=== PATIENT | female | born 1945 | race Caucasian/White ===

== ENCOUNTER 2017-07-03 20:07 | Inpatient (IN) | payer OTHER ==
[~2017-07-03] VITALS: Ht 162.6 cm; Wt 140.0 kg
[~2017-07-03 20:07] MED LIST: ACLI1AER3 INH; ALBUAER2 INH; ASPI81TA28 PO; DOCU100C31 PO; FEBU40TA PO; FURO80TA63 PO; LEVO112T2 PO; MAGN400T6 PO; METO2.5T PO; METO25TA56 PO; MOME200A INH; PANT40TA PO; POTA20TA16 PO; PREG1CAP70 PO; SERT-234 PO; SPIR25TA PO; VITAMIN D2 PO; WARF3TAB6 PO; WARF6TAB5 PO
[2017-07-03 21:05] LABS: MEAN CORPUSCULAR HGB CONC 32.7 g/dl (32-36)
[2017-07-03 21:13] LABS: HEMATOCRIT 49.2 % (37-47); MEAN CELL VOLUME 78.5 fL (80-100); MEAN CORPUSCULAR HEMOGLOBIN 25.7 pg (25-34); RED BLOOD COUNT 6.27 M/uL (4.2-5.4); WHITE BLOOD COUNT 10.52 K/uL (4.8-10.8)
[2017-07-03 21:16] LABS: INR 2.5 (0.9-1.1); PARTIAL THROMBOPLASTIN RATIO 1.6; PROTHROMBIN TIME (PATIENT) 28.1 SECONDS (9.0-12.0)
[2017-07-03 21:22] LABS: ALT/SGPT 29 U/L (12-78); AST/SGOT 19 U/L (15-37); BLOOD UREA NITROGEN 66 mg/dl (7-18); BUN/CREATININE RATIO 35.9 (10-20); CARBON DIOXIDE 33 mmol/L (21-32); CHLORIDE 100 mmol/L (98-107); CREATININE 1.83 mg/dl (0.60-1.20); GLUCOSE 131 mg/dl (70-99); MAGNESIUM 2.1 mg/dl (1.8-2.4); POTASSIUM 3.8 mmol/L (3.5-5.1); SODIUM 140 mmol/L (136-145)
[2017-07-03 21:27] LABS: ALB/GLOB RATIO 0.7 (0.9-2); ALKALINE PHOSPHATASE 109 U/L (45-117)
--- NOTE | 2017-07-03 21:39 | DIAGNOSTIC IMAGING REPORT ---
CHEST ONE VIEW PORTABLE HISTORY: 72 years-old Female sob, hx chf acute shortness of breath with history of congestive heart failure COMPARISON: None available TECHNIQUE: AP view of the chest FINDINGS: Cardiac silhouette is moderately enlarged. Prior median sternotomy. There is atherosclerosis of the aorta. Surgical clips project over the left heart border suggesting prior CABG. There is no pneumothorax. There is mild pulmonary vascular congestion without overt pulmonary edema. Subsegmental bibasilar opacities are noted, left greater than right. Bones appear grossly intact. IMPRESSION: 1. Cardiomegaly and pulmonary vascular congestion without overt pulmonary edema. 2. Subsegmental left greater than right bibasilar opacities suggest atelectasis. The above report was generated using voice recognition software. It may contain grammatical, syntax or spelling errors. Electronically signed by: Brandin Dietz M.D. 07/03/2017 9:38 PM Dictated Date/Time: 07/03/2017 9:36 PM
--- NOTE | 2017-07-03 21:59 | EMERGENCY ROOM VISIT NOTE ---
ED Visit Note First contact with patient: 20:24 I have seen and examined this patient with Tammy Nolan and generally agree with the treatment plan as discussed. Problem List Medical Problems: (1) CHF (congestive heart failure) Status: Resolved (2) Deep vein blood clot of right lower extremity Status: Resolved (3) Diabetes Status: Chronic Current/Historical Medications Scheduled Aclidinium [place] (Tudorza Pressair), 1 PUFF INH BID Albuterol (Ventolin), 1 PUFFS INH UD Aspirin (Aspirin Ec), 81 MG PO DAILY Docusate Sodium (Docusate Sodium), 1 CAP PO DAILY Febuxostat (Uloric), 1 TAB PO DAILY Furosemide (Lasix), 80 MG PO BID Levothyroxine Sodium (Synthroid), 112 MCG PO DAILY Magnesium Oxide (Mag-Ox), 400 MG PO DAILY Metolazone (Zaroxolyn), 2.5 MG PO WK Metoprolol Tartrate (Lopressor) (Lopressor), 25 MG PO QAM Metoprolol Tartrate (Lopressor) (Lopressor), 12.5 MG PO QPM Mometasone Furoate-Formoterol (Dulera 200/5 Mcg), 2 PUFFS INH BID Pantoprazole (Protonix), 40 MG PO DAILY Potassium Ext Rel (Klor-Con), 20 MEQ PO TID Pregabalin (Lyrica), 150 MG PO TID Sertraline (Zoloft), 150 MG PO DAILY Spironolactone (Aldactone), 25 MG PO DAILY Warfarin Sod (Jantoven), 6 MG PO QAM Warfarin Sod (Jantoven), 3 MG PO QPM [Vitamin D2], 1.25 MG PO MONTHLY Allergies Coded Allergies: Penicillins (Verified Allergy, Unknown, UNLNOWN, 01/20/16) Vital Signs Date Time Temp Pulse Resp B/P (MAP) Pulse Ox O2 Delivery O2 Flow Rate FiO2 07/03/17 21:01 114/71 07/03/17 20:52 78 20 96 Nasal Cannula 3.0 07/03/17 20:47 79 07/03/17 20:30 124/75 07/03/17 20:14 36.4 79 20 110/71 89 Room Air Laboratory Results 07/03/17 20:50 Red Blood Count 6.27, Mean Corpuscular Volume 78.5, Mean Corpuscular Hemoglobin 25.7, Mean Corpuscular Hemoglobin Concent 32.7 07/03/17 20:50 Test 07/03/17 20:50 White Blood Count 10.52 K/uL (4.8-10.8) Red Blood Count 6.27 M/uL (4.2-5.4) Hemoglobin 16.1 g/dL (12.0-16.0) Hematocrit 49.2 % (37-47) Mean Corpuscular Volume 78.5 fL (80-100) Mean Corpuscular Hemoglobin 25.7 pg (25-34) Mean Corpuscular Hemoglobin Concent 32.7 g/dl (32-36) RDW Standard Deviation 54.9 fL (36.4-46.3) RDW Coefficient of Variation 19.3 % (11.5-14.5) Prothrombin Time 28.1 SECONDS (9.0-12.0) Prothromb Time International Ratio 2.5 (0.9-1.1) Activated Partial Thromboplast Time 41.4 SECONDS (21.0-31.0) Partial Thromboplastin Ratio 1.6 Anion Gap 7.0 mmol/L (3-11) Estimated GFR () 31.2 Estimated GFR (Non- 26.9 BUN/Creatinine Ratio 35.9 (10-20) Calcium Level 10.0 mg/dl (8.5-10.1) Magnesium Level 2.1 mg/dl (1.8-2.4) Total Bilirubin 0.3 mg/dl (0.2-1) Aspartate Amino Transf (AST/SGOT) 19 U/L (15-37) Alanine Aminotransferase (ALT/SGPT) 29 U/L (12-78) Alkaline Phosphatase 109 U/L (45-117) Troponin I < 0.015 ng/ml (0-0.045) Pro-B-Type Natriuretic Peptide 667 pg/ml (0-900) Total Protein 7.7 gm/dl (6.4-8.2) Albumin 3.2 gm/dl (3.4-5.0) Globulin 4.5 gm/dl (2.5-4.0) Albumin/Globulin Ratio 0.7 (0.9-2) Departure Information Referrals Esequiel Bran D.O. (PCP) Patient Instructions My [facility]
[2017-07-03] MEDS ORDERED: ANAS1TAB19 PO (22:09)
[2017-07-03] MEDS ORDERED: ACLI1AER3 INH (22:09)
[2017-07-03] MEDS ORDERED: CALCTAB7 PO (22:09)
[2017-07-03] MEDS ORDERED: ROSU10TA24 PO (22:09)
[2017-07-03] MEDS ORDERED: WARF4TAB8 PO (22:09)
[2017-07-03] MEDS ORDERED: MOME100A INH (22:13)
[2017-07-03 22:14] LABS: BASO % 0.3 %; BASO ABS # 0.03 K/uL (0-0.2); COMPLETE YES; IG% 0.5 %; LYMPH ABS # 1.79 K/uL (1.2-3.4); NEUT % 71.2 %; PLATELET COUNT 140 K/uL (130-400)
--- NOTE | 2017-07-03 22:23 | DIAGNOSTIC IMAGING REPORT ---
BILATERAL LOWER EXTREMITY VENOUS DOPPLER HISTORY: Acute bilateral leg swelling b/l leg swelling hx clots COMPARISON STUDY: None. FINDINGS: There is normal compressibility, flow, and augmentation within the bilateral lower extremity deep venous systems. IMPRESSION: No DVT within the right or left lower extremity. Electronically signed by: Brandin Dietz M.D. 07/03/2017 10:22 PM Dictated Date/Time: 07/03/2017 10:22 PM
[2017-07-03] MEDS ORDERED: FUROSEMIDE 40 MG/4 ML VIAL IV STA (22:35)
[2017-07-03] MEDS ORDERED: ALBUT/IPRATROP 3MG/0.5MG NEB 3 ML VIAL INH ONE (22:45)
[2017-07-03 22:50] VITALS: PULSE 79; O2SAT 88
[2017-07-03] MEDS ORDERED: CEFTRIAXONE SOD INJ 1 GM ADDVIAL IV STA (23:03)
[2017-07-03] MEDS ORDERED: VANCOMYCIN INJ 2,000 MG in SODIUM CHLORIDE 0.9% 500ML 500 ML IV STA (23:15)
[2017-07-04] VITALS (10 sets, daily range): BP systolic 103–144; BP diastolic 56–79; PULSE 77–90; TEMP 36.5–36.8; O2SAT 86–98; Ht 162.6 cm; Wt 140.0 kg
[2017-07-04 00:12] LABS: THYROID STIMULATING HORMONE 0.958 uIu/ml (0.300-4.500)
[2017-07-04] MEDS ORDERED: DOXYCYCLINE IV 100 MG in DEXTROSE 5% 100ML 100 ML IV STA (00:35)
[2017-07-04] MEDS ORDERED: FUROSEMIDE INJ 60 MG in SYRINGE 0 ML IV STA (00:36)
[2017-07-04] MEDS ORDERED: INSULIN ASPART 100 UNITS/ML 3 ML PEN SC ONE (00:37)
[2017-07-04 00:38] LABS: VEN BLD GAS O2 SATURATION 78.5 %; VEN BLOOD GAS BASE EXCESS 6.4 mEq/L; VENOUS BLOOD GAS PCO2 70 mmHg (38.0-50.0); VENOUS BLOOD GAS PO2 48 mmHg
[2017-07-04] MEDS ORDERED: FUROSEMIDE INJ 80 MG in SYRINGE 0 ML IV STA ×2 (00:39→05:04)
[2017-07-04] MEDS ORDERED: INSULIN GLARGINE SOLOSTAR 100 UNITS/ML 3 ML PEN SC STA (00:39)
[2017-07-04] MEDS ORDERED: METHYLPREDNISOLONE IV 40 MG in SYRINGE 0 ML IV STA (00:40)
[2017-07-04] MEDS ORDERED: GLUCOSE 10 TABS/TUBE PO PRN (00:45)
[2017-07-04] MEDS ORDERED: GLUCAGON FOR INJ 1 MG VIAL SQ PRN (00:45)
[2017-07-04] MEDS ORDERED: LEVALBUTEROL/IPRATROPIUM NEB INH PRN (00:45)
[2017-07-04] MEDS ORDERED: DEXTROSE 50% 50 ML SYR IV PRN (00:45)
[2017-07-04] MEDS ORDERED: ACETAMINOPHEN 325 MG TAB PO PRN (00:45)
[2017-07-04] MEDS ORDERED: NITROGLYCERIN 0.4 MG SL PER TAB CHARGE SL PRN (00:45)
[2017-07-04] MEDS ORDERED: GLUCOSE 40% GEL 15 GM TUBE PO PRN (00:45)
--- NOTE | 2017-07-04 00:56 | EMERGENCY ROOM VISIT NOTE ---
History First contact with patient: 20:24 Chief Complaint: SWELLING TO EXTREMITY Stated Complaint: FLUID AND PAIN IN LEGS History of Present Illness The patient is a 72 year old female who presents to the Emergency Room with complaints of leg swelling and shortness of breath. The patient states that she has had increased swelling in both her legs, left greater than right worsening over the past week. The patient does have a history of swelling in her legs and takes Lasix 80 mg twice daily at home. She has had to be hospitalized a few times to decrease the swelling. The patient has a history of congestive heart failure. She states that the swelling in the left leg seems to be spreading up into the thigh and is painful. She has felt unsteady on her feet for the past few days. She does state that she has had some increased shortness of breath over the past few days. She typically wears 2 L of oxygen via nasal cannula at all times, but has recently increased her oxygen to 3 L. She denies any chest pain, fevers or cough. The patient also reports a history of COPD, CAD, CABG and breast cancer. She has a history of blood clots and is on Coumadin. Review of Systems A complete 10 point review of systems was reviewed with the patient with pertinent positives and negatives as per history of present illness. All else were negative. Past Medical/Surgical History Medical Problems: (1) CHF (congestive heart failure) (2) Deep vein blood clot of right lower extremity (3) Diabetes (4) Respiratory failure, acute Family History Patient reports no known family medical history. Social History Smoking Status: Current Every Day Smoker Marital Status: Housing Status: lives with family Occupation Status: retired Current/Historical Medications Scheduled Aclidinium [place] (Tudorza Pressair), INH UD Anastrozole (Arimidex), 1 MG PO DAILY Calcium Carbonate-Vitamin D W/ (Caltrate 600 Plus), 1 TAB PO DAILY Docusate Sodium (Docusate Sodium), 1 CAP PO DAILY Febuxostat (Uloric), 1 TAB PO DAILY Furosemide (Lasix), 80 MG PO BID Levothyroxine Sodium (Synthroid), 112 MCG PO DAILY Magnesium Oxide (Mag-Ox), 400 MG PO DAILY Metoprolol Tartrate (Lopressor) (Lopressor), 37.5 MG PO QAM Mometasone Furoate-Formoterol (Dulera 100/5 Mcg), 1 AER INH BID Pantoprazole (Protonix), 40 MG PO DAILY Potassium Ext Rel (Klor-Con), 20 MEQ PO TID Pregabalin (Lyrica), 150 MG PO TID Rosuvastatin Calcium (Rosuvastatin Calcium), 10 MG PO DAILY Sertraline (Zoloft), 150 MG PO DAILY Spironolactone (Aldactone), 25 MG PO DAILY Warfarin Sod (Jantoven), 2 TABS PO DAILY Physical Exam Vital Signs Date Time Temp Pulse Resp B/P (MAP) Pulse Ox O2 Delivery O2 Flow Rate FiO2 07/04/17 00:58 124 20 87/53 93 Nasal Cannula 3.0 07/03/17 23:01 113/63 07/03/17 22:53 111/58 07/03/17 22:52 102/61 07/03/17 22:51 80 07/03/17 22:50 79 20 88 Room Air 07/03/17 21:36 78 18 94 07/03/17 21:31 80/59 07/03/17 21:21 80 15 95 07/03/17 21:06 80 16 94 07/03/17 21:01 114/71 07/03/17 20:52 78 20 96 Nasal Cannula 3.0 07/03/17 20:47 79 07/03/17 20:30 124/75 07/03/17 20:14 36.4 79 20 110/71 89 Room Air Physical Exam VITALS: Vitals are noted on the nurse's note and reviewed by myself. Vital signs stable. GENERAL: This is a 72-year-old female, obese, chronically ill-appearing, in no acute distress. EARS: External auditory canals clear, tympanic membranes pearly ingram without erythema or effusion bilaterally. EYES: Pupils equal round and reactive to light and accommodation. NECK: Supple without nuchal rigidity. HEART: Regular rate and rhythm without murmurs gallops or rubs. LUNGS: There are diffuse wheezes and crackles throughout all lung peng. EXTREMITIES: 2+ pitting edema bilaterally. There is erythema extending from the left foot of the left leg to below the knee. NEURO: Patient was alert and oriented to person place and time. Medical Decision & Procedures ER Provider Diagnostic Interpretation: CHEST ONE VIEW PORTABLE FINDINGS: Cardiac silhouette is moderately enlarged. Prior median sternotomy. There is atherosclerosis of the aorta. Surgical clips project over the left heart border suggesting prior CABG. There is no pneumothorax. There is mild pulmonary vascular congestion without overt pulmonary edema. Subsegmental bibasilar opacities are noted, left greater than right. Bones appear grossly intact. IMPRESSION: 1. Cardiomegaly and pulmonary vascular congestion without overt pulmonary edema. 2. Subsegmental left greater than right bibasilar opacities suggest atelectasis. BILATERAL LOWER EXTREMITY VENOUS DOPPLER HISTORY: Acute bilateral leg swelling b/l leg swelling hx clots COMPARISON STUDY: None. FINDINGS: There is normal compressibility, flow, and augmentation within the bilateral lower extremity deep venous systems. IMPRESSION: No DVT within the right or left lower extremity. Laboratory Results 07/03/17 20:50 Red Blood Count 6.27, Mean Corpuscular Volume 78.5, Mean Corpuscular Hemoglobin 25.7, Mean Corpuscular Hemoglobin Concent 32.7, Neutrophils (%) (Auto) 71.2, Lymphocytes (%) (Auto) 17.0, Monocytes (%) (Auto) 10.0, Eosinophils (%) (Auto) 1.0, Basophils (%) (Auto) 0.3, Neutrophils # (Auto) 7.50, Lymphocytes # (Auto) 1.79, Monocytes # (Auto) 1.05, Eosinophils # (Auto) 0.10, Basophils # (Auto) 0.03 07/03/17 20:50 Test 07/03/17 20:50 07/04/17 00:02 07/04/17 00:37 07/04/17 01:07 White Blood Count 10.52 K/uL (4.8-10.8) Red Blood Count 6.27 M/uL (4.2-5.4) Hemoglobin 16.1 g/dL (12.0-16.0) Hematocrit 49.2 % (37-47) Mean Corpuscular Volume 78.5 fL (80-100) Mean Corpuscular Hemoglobin 25.7 pg (25-34) Mean Corpuscular Hemoglobin Concent 32.7 g/dl (32-36) Platelet Count 140 K/uL (130-400) Neutrophils (%) (Auto) 71.2 % Lymphocytes (%) (Auto) 17.0 % Monocytes (%) (Auto) 10.0 % Eosinophils (%) (Auto) 1.0 % Basophils (%) (Auto) 0.3 % Neutrophils # (Auto) 7.50 K/uL (1.4-6.5) Lymphocytes # (Auto) 1.79 K/uL (1.2-3.4) Monocytes # (Auto) 1.05 K/uL (0.11-0.59) Eosinophils # (Auto) 0.10 K/uL (0-0.5) Basophils # (Auto) 0.03 K/uL (0-0.2) RDW Standard Deviation 54.9 fL (36.4-46.3) RDW Coefficient of Variation 19.3 % (11.5-14.5) Immature Granulocyte % (Auto) 0.5 % Immature Granulocyte # (Auto) 0.05 K/uL (0.00-0.02) Prothrombin Time 28.1 SECONDS (9.0-12.0) Prothromb Time International Ratio 2.5 (0.9-1.1) Activated Partial Thromboplast Time 41.4 SECONDS (21.0-31.0) Partial Thromboplastin Ratio 1.6 Anion Gap 7.0 mmol/L (3-11) Estimated GFR () 31.2 Estimated GFR (Non- 26.9 BUN/Creatinine Ratio 35.9 (10-20) Calcium Level 10.0 mg/dl (8.5-10.1) Magnesium Level 2.1 mg/dl (1.8-2.4) Total Bilirubin 0.3 mg/dl (0.2-1) Aspartate Amino Transf (AST/SGOT) 19 U/L (15-37) Alanine Aminotransferase (ALT/SGPT) 29 U/L (12-78) Alkaline Phosphatase 109 U/L (45-117) Troponin I < 0.015 ng/ml (0-0.045) Pro-B-Type Natriuretic Peptide 667 pg/ml (0-900) Total Protein 7.7 gm/dl (6.4-8.2) Albumin 3.2 gm/dl (3.4-5.0) Globulin 4.5 gm/dl (2.5-4.0) Albumin/Globulin Ratio 0.7 (0.9-2) Thyroid Stimulating Hormone (TSH) 0.958 uIu/ml (0.300-4.500) Venous Blood pH 7.32 (7.36-7.41) Venous Blood Partial Pressure CO2 70 mmHg (38.0-50.0) Venous Blood Partial Pressure O2 48 mmHg Venous Blood HCO3 35 mmol/L Venous Blood Oxygen Saturation 78.5 % Venous Blood Base Excess 6.4 mEq/L Lactic Acid Level 1.1 mmol/L (0.4-2.0) Bedside Glucose 150 mg/dl (70-90) Medications Administered Medications (Trade) Dose Ordered Sig/Isidoro Route Start Time Stop Time Status Last Admin Dose Admin Albuterol/ Ipratropium (Duoneb) 12 ml ONE ONCE INH 07/03/17 22:45 07/03/17 22:46 DC 07/03/17 22:50 12 ML Ceftriaxone Sodium (Rocephin Inj) 1 gm NOW STAT IV 07/03/17 23:03 07/03/17 23:05 DC 07/03/17 23:50 1 GM Doxycycline Hyclate 100 mg/ Dextrose 110 ml @ 50 mls/hr NOW STAT IV 07/04/17 00:35 07/04/17 02:46 07/04/17 01:00 50 MLS/HR Methylprednisolone Sodium Succinate 40 mg/Syringe 0.64 ml @ 1.5 mls/min NOW STAT IV 07/04/17 00:40 07/04/17 00:41 DC 07/04/17 01:00 1.5 MLS/MIN Insulin Glargine (Lantus Solostar Pen) 5 units NOW STAT SC 07/04/17 00:39 07/04/17 00:40 DC 07/04/17 01:10 5 UNITS ECG Rate (beats per minute): 79 Rhythm: atrial flutter (3:1 AV conduction ) Comparison ECG Date: no prior available Medical Decision Differential diagnosis includes CHF, COPD exacerbation, cellulitis, coronary artery disease, pneumonia, among others. The patient is a 72-year-old female who presents today complaining of leg swelling and shortness of breath. There is no leukocytosis. Troponin was not elevated. BNP within normal limits. Chest x-ray did show some pulmonary vascular congestion without overt pulmonary edema. Creatinine is elevated, however this is the patient's baseline. EKG does show atrial flutter at a normal rate. Patient has a history of this and with stable vital signs I do not suspect it is causing her symptoms. Ultrasound of the lower extremities showed no evidence of DVT. A DuoNeb was ordered. I suspect her shortness of breath is likely multifactorial. There is concern for cellulitis given the new onset of increased swelling in the left leg. Patient is afebrile. She does not appear to be septic. She was given Rocephin and vancomycin. She will be admitted to the [facility] service for further evaluation and care. The patient was independently evaluated by Dr. Shultz, ED attending physician , who agreed with my assessment and treatment plan. Medication Reconcilliation Current Medication List: was personally reviewed by me Blood Pressure Screening Patient's blood pressure: Normal blood pressure Impression Primary Impression: Left leg cellulitis Additional Impression: Shortness of breath Departure Information Referrals Esequiel Bran D.O. (PCP) Patient Instructions My [facility] Problem Qualifiers
[2017-07-04] MEDS ORDERED: DIGOXIN IV 250 MCG in SYRINGE 9 ML IV STA (01:02)
[2017-07-04] MEDS ORDERED: TRAMADOL HCL 50 MG TAB PO PRN (01:15)
[2017-07-04] MEDS ORDERED: ONDANSETRON INJ 2 MG/ML 2 ML VIAL IV PRN (01:15)
[2017-07-04] MEDS ORDERED: HYDROmorphone INJ 0.5 MG/0.5 ML SYR IV PRN (01:15)
[2017-07-04] MEDS ORDERED: LEVALBUTEROL 1.25MG/0.5ML NEB INH PRN (01:30)
[2017-07-04] MEDS ORDERED: IPRATROPIUM BROMIDE NEB SOLN 0.02% 2.5 ML VIAL INH PRN (01:30)
--- NOTE | 2017-07-04 02:31 | HISTORY & PHYSICAL EXAMINATION ---
DATE OF ADMISSION: 07/03/2017 REQUESTING PHYSICIAN: Dr. Esequiel Bran. CHIEF COMPLAINT: Shortness of breath, leg swelling. HISTORY OF PRESENT ILLNESS: History obtained from patient, daughter and records. Medical history significant for chronic respiratory failure secondary to COPD on home O2, CAD status post CABG, chronic CHF, leaky valve as per daughter, PVD, history of atrial fibrillation/recurrent PE/DVT on anticoagulation. breast cancer left status post lumpectomy sp radiation, on hormonal treatment, ongoing tobacco abuse, JONATHON, DM2, diet controlled, chronic renal insufficiency stage III as per daughter. In the last week patient noted cough symptoms initially clear later productive of yellow sputum. No chest pain. Some coughing with meals. Patient and daughter also noted increased bilateral leg swelling and redness, progressive despite compliance with diuretic Rx. Denies dietary indiscretion. No fever no chills. Weight gain of 10 pounds in a week as per patient. Increasing shortness of breath. Patient also noted right upper extremity weakness in the last week, compliant with medications. No unusual headache, no shoulder pain, no neck pain. No recollection of trauma. Patient brought to the ER. MEDICAL HISTORY: As above. Her blanking press operator is Dr. Fernandez, Her low altitude air defense gunner is Dr. Dawson. SURGERIES: She has had back surgery, some ankle surgery and bypass. HOME MEDICATIONS: Include Tudorza, Arimidex, Caltrate, docusate sodium, Uloric, Lasix, Synthroid, Dulera, mag oxide, Lopressor, Protonix, Klor-Con, Lyrica, rosuvastatin, Zoloft, Aldactone, Jantoven. ASA ALLERGIES: MELATONIN, PENICILLIN. FAMILY HISTORY: Heart disease, diabetes. PERSONAL SOCIAL HISTORY: A pack daily. No chronic intake of alcoholic beverages. 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 Lives with daughter. REVIEW OF SYSTEMS: As per HPI. All 10 systems reviewed. All other ROS negative. PHYSICAL EXAMINATION: VITAL SIGNS: Blood pressure noted to be 110/71, late 87/50, pulse rate 78 later 110, RR 20, temperature 36.4, sats 89 on room air. GENERAL: Noted to be obese, comfortable, no overt respiratory distress. Currently receiving a breathing treatment at the emergency room. SKIN: Normal color, warm. HEENT: sparse hair. [place] palpebral conjuctivae. No ptosis, Dry buccal mucosa. NECK: Short neck. No tenderness. CHEST: Healed incisional sternal scar. No tenderness. Expiratory wheezes. CV: Tachycardic. Palpable LE pulses. ABDOMEN: Some distention, nontender. EXTREMITIES: Bilateral lower extremity edema, erythema, no tenderness. No gross deformity. NEUROLOGIC: Coherent. No gross focality. LABORATORY DATA: Hemoglobin was noted to be 16.1, hematocrit 49.2, white cell count 10.5, platelets 140. Sodium 140, potassium 3.8, chloride 100, CO2 30, BUN 16, creatinine 1.8, glucose 131. Troponin was noted to be 0.15. INR noted to be 2.5. EKG as per my interpretation, rate 80, atrial flutter. Lower extremity venous Dopplers, no DVT. Chest x-ray showed cardiomegaly, pulmonary vascular congestion, atelectasis. ASSESSMENT: 1. Acute on chronic hypoxemic failure multifactorial : decompensated heart failure chronic obstructive pulmonary disease exacerbation/complicated bronchitis. No sepsis. 2. Hypertension, BP on the lower side 3. hx Atrial flutter/recurrent PE/DVT on Coumadin. Rate slightly elevated , INR therapeutic. 4. RUE weakness of one week duration rule out CVA CAD sp CABG 5. Coughing with meals rule out aspiration 6. hx PVD. 7. LE Cellulitis. No sepsis. 8. renal failure, hx Stage 3 CKD as per daughter Serum creatinine may be at baseline. 9. Breast cancer, left, status post surgery, radiation, ongoing hormone therapy. 10. Ongoing tobacco abuse. 11. hx JONATHON PLAN: PCU supplemental O2 baseline ABG. Diuretic Rx BP once stable, Follow renal function with diuretic therapy. Strict IOs, daily weights, CHF education Continue home BB; digoxin one dose now control heart rate given low BP TTE, Cardiology consult RE decompensated heart failure Obtain records from patient's blanking press operator, Dr. Fernandez. Coordinate diuretic regimen w/ px's [facility] low altitude air defense gunner, Dr. Dawson. [facility] RTC, prn Doxycycline, steroid course for complicated bronchitis (Doxycycline to cover lower extremity cellulitis as well.) Nicotine patch CT head RE right upper extremity weakness (MRI precluded by heart stent as per daughter.) May need stroke workup, Neurology opinion pending CT head results. Swallow eval PT, OT eval. Basal insulin, ISS BG goal 140-180 Check hemoglobin A1c. DVT prophylaxis, Coumadin INR 2-3. Full code. Patient's daughter requesting updates from providers. Miss Valentine Orellana at [phone]. [facility]
[2017-07-04] MEDS: IPRATROPIUM BROMIDE NEB SOLN 0.02% 2.5 ML VIAL INH SCH ×4 (02:59→19:04)
[2017-07-04] MEDS: LEVALBUTEROL 1.25MG/0.5ML NEB INH SCH ×4 (02:59→19:04)
[2017-07-04] MEDS ORDERED: LEVALBUTEROL/IPRATROPIUM NEB INH SCH (03:00)
[2017-07-04 04:28] LABS: INFLUENZA A PCR Neg for Influ A (NEG); INFLUENZA B PCR Neg for Influ B (NEG)
[2017-07-04] MEDS ORDERED: POTASSIUM CHLORIDE 10 MEQ TABCR PO STA (04:41)
[2017-07-04] MEDS ORDERED: INFLUENZA VACCINE HIGH DOSE 65+ 0.5 ML SYR IM. ONE (05:30)
[2017-07-04] MEDS ORDERED: INFLUENZA ADMINISTRATION CHARGE ONE (05:30)
[2017-07-04] MEDS: LEVOTHYROXINE 112 MCG TAB PO SCH (05:33)
[2017-07-04 06:02] LABS: MEAN CORPUSCULAR HGB CONC 31.5 g/dl (32-36)
[2017-07-04 06:12] LABS: HEMATOCRIT 50.5 % (37-47); MEAN CORPUSCULAR HEMOGLOBIN 24.9 pg (25-34); RED BLOOD COUNT 6.39 M/uL (4.2-5.4); WHITE BLOOD COUNT 10.67 K/uL (4.8-10.8)
[2017-07-04 06:17] LABS: INR 2.6 (0.9-1.1)
[2017-07-04 06:40] LABS: BLOOD UREA NITROGEN 67 mg/dl (7-18); BUN/CREATININE RATIO 33.8 (10-20); CARBON DIOXIDE 32 mmol/L (21-32); CHLORIDE 100 mmol/L (98-107); CREATININE 1.98 mg/dl (0.60-1.20); GLUCOSE 175 mg/dl (70-99); POTASSIUM 4.1 mmol/L (3.5-5.1); SODIUM 141 mmol/L (136-145)
[2017-07-04 06:42] LABS: PLATELET COUNT 120 K/uL (130-400)
[2017-07-04 06:43] LABS: BASO % 0.2 %; BASO ABS # 0.02 K/uL (0-0.2); COMPLETE YES; EOS % 0.1 %; IG% 0.2 %; LYMPH % 6.8 %; LYMPH ABS # 0.73 K/uL (1.2-3.4); MONO % 1.7 %; PLT ESTIMATE DECREASED
[2017-07-04] MEDS ORDERED: PERFLUTREN LIPID MICROSPHERE (DEFINITY) IV ONE (07:04)
--- NOTE | 2017-07-04 07:14 | DIAGNOSTIC IMAGING REPORT ---
CT SCAN OF THE BRAIN WITHOUT IV CONTRAST CLINICAL HISTORY: Right upper extremity weakness. COMPARISON STUDY: No priors. TECHNIQUE: Unenhanced axial CT scan of the brain is performed from the vertex to the skull base. CT DOSE: 614.27 mGy.cm FINDINGS: Brain parenchyma: There are age-related involutional changes noting [id number] patchy subcortical and periventricular microangiopathic change. There is no hemorrhage, mass effect, or evidence of acute territorial ischemia by CT criteria. Barron-white matter is preserved. No extra-axial fluid collection is seen. Ventricles, sulci, cisterns: Prominent secondary to involutional change. Intracranial vasculature: There is atherosclerotic calcification of the cavernous carotid and vertebral arteries. Calvarium: Unremarkable. Sinuses and mastoids: The visualized paranasal sinuses are clear. The mastoid air cells are well pneumatized. Orbits: The bony orbits are grossly intact. IMPRESSION: There is no hemorrhage, mass effect, or evidence of acute territorial ischemia by CT criteria. Electronically signed by: Tayo Lancaster M.D. 07/04/2017 7:13 AM Dictated Date/Time: 07/04/2017 6:56 AM
[2017-07-04 07:43] LABS: ESTIMATED AVERAGE GLUCOSE 154 mg/dl; HA1C FLAG Normal (Normal)
[2017-07-04] MEDS: ROSUVASTATIN CALCIUM 10 MG TAB PO SCH (08:03)
[2017-07-04] MEDS: INSULIN ASPART 100 UNITS/ML 3 ML PEN SC SCH ×4 (08:05→20:29)
[2017-07-04] MEDS: ANASTROZOLE 1 MG TAB PO SCH (08:06)
[2017-07-04] MEDS: PANTOprazole SOD 40 MG TAB PO SCH (08:06)
[2017-07-04] MEDS: DOCUSATE SODIUM 100 MG CAP PO SCH (08:07)
[2017-07-04] MEDS: SERTRALINE HCL 100 MG TAB PO SCH (08:07)
[2017-07-04] MEDS: ASPIRIN 81 MG ECTAB PO SCH (08:07)
[2017-07-04] MEDS: FEBUXOSTAT 40 MG TAB PO SCH (08:08)
[2017-07-04] MEDS: METOPROLOL TARTRATE 25 MG TAB PO SCH ×2 (08:08→20:36)
[2017-07-04] MEDS: POTASSIUM CHLORIDE 20 MEQ TABCR PO SCH ×3 (08:09→20:37)
[2017-07-04] MEDS: NICOTINE 21 MG/24 HR TDSY TD SCH (08:10)
[2017-07-04] MEDS: PREGABALIN 150 MG CAP PO SCH ×3 (08:14→20:36)
[2017-07-04 08:15] LABS: URINE APPEARANCE CLEAR (CLEAR); URINE BILIRUBIN NEG (NEG); URINE COLOR YELLOW; URINE NITRITE NEG (NEG); URINE SPECIFIC GRAVITY 1.013 (1.000-1.030); UROBILINOGEN NEG (NEG); ZZUR CULT IF INDIC CLEAN CATCH NO
[2017-07-04 08:16] LABS: MANUAL MICROSCOPIC REQUIRED? NO; REVIEW REQ? NO
--- NOTE | 2017-07-04 08:55 | ECHOCARDIOGRAM REPORT ---
*NOTICE TO RECEIVING [employer] This information is strictly Confidential and protected under [place] law. [place] law prohibits you from making any further disclosure of this information unless further disclosure is expressly permitted by the written consent of the person to whom it pertains or is authorized by law. A general authorization for the release of medical or other information is not sufficient for this purpose. Hospital accepts no responsibility if the information is made available to any other person, INCLUDING THE PATIENT. Interpretation Summary * Name: CHANTEL ALEXANDRE Study Date: 07/04/2017 07:42 AM BP: 121/72 mmHg * Patient Location: .2E\S\E202\S\1 HR: 95 * : 1945 (M/d/yyy) Gender: Female Height: 64 in * Age: 72 yrs Ethnicity: [place] Weight: 306 lb * Ordering Physician: Pankaj Rice * Referring Physician: Self, Referred * Performed By: Sandra Obrien RCS * * Reason For Study: CHF * BSA: 2.3 m2 * -- Conclusions -- * Normal LV chamber size with mild concentric LVH. * Normal LV systolic function, abnormal septal wall motion consistent with post-operative state, EF 55-60%. * Grade I diastolic dysfunction. * A bicuspid aortic valve cannot be excluded. Mildly calcified. Trace aortic regurgitation. No hemodynamically significant valvular aortic stenosis. * Small, loculated anterior pericardial effusion. Stranding is present to suggest chronicity. Procedure Details * A complete two-dimensional transthoracic echocardiogram was performed (2D, M-mode, Doppler and color flow Doppler). * The study was technically difficult. * A contrast injection of Definity was performed to improve assessment of LV function. * Contrast was injected into an intravenous site in the left arm. * One vial of Definity ultrasound contrast was diluted in normal saline to a total volume of 10 ml. A total of '2' ml of solution was administered during imaging. * Lot # [id number] of Definity utilized for procedure. * Expiration date AUG 05. * The attending nurse who injected the contrast agent was AUBREY MCCAULEY, RN. Left Ventricle * The left ventricle is normal in size. * There is mild concentric left ventricular hypertrophy. * Left ventricular systolic function is normal. * Ejection Fraction = 55-60%. * Septal motion is consistent with post-operative state. Right Ventricle * The right ventricular cavity size is normal (basal dimension <4.2 cm in right ventricular apical 4-chamber view). * The right ventricular systolic function is normal as assessed by tricuspid annular plane systolic excursion (TAPSE) (normal >1.5 cm). Atria * The left atrial size is normal. * Right atrial size is normal. * No ASD detected; PFO is not assessed. Mitral Valve * There is mild mitral annular calcification. * There is no mitral valve stenosis. * There is no mitral regurgitation noted. Tricuspid Valve * The tricuspid valve is normal in structure and function. Aortic Valve * A bicuspid aortic valve cannot be excluded. * Mildly calcified. * No hemodynamically significant valvular aortic stenosis. * Trace aortic regurgitation. Pulmonic Valve * The pulmonary valve is not well seen, but the Doppler examination is normal without significant regurgitation or stenosis. Great Vessels * The aortic root is normal size. Pericardium/Pleural * Small pericardial effusion. * A loculated pericardial effusion is noted. Left Ventricular Diastolic Function * Grade I diastolic dysfunction, (abnormal relaxation pattern). MMode 2D Measurements and Calculations IVSd 1.5 cm IVSs 1.6 cm LVIDd 4.8 cm LVIDs 3.5 cm LVPWd 0.94 cm LVPWs 1.4 cm IVS/LVPW 1.6 FS 26.4 % EDV(Teich) 107.9 ml ESV(Teich) 52.2 ml EF(Teich) 51.6 % EDV(cubed) 111.0 ml ESV(cubed) 44.3 ml EF(cubed) 60.1 % % IVS thick 10.6 % % LVPW thick 53.8 % LV mass(C)d 221.7 grams LV mass(C)dI 94.6 grams/m\S\2 LV mass(C)s 204.8 grams LV mass(C)sI 87.4 grams/m\S\2 SV(Teich) 55.7 ml SI(Teich) 23.7 ml/m\S\2 SV(cubed) 66.8 ml SI(cubed) 28.5 ml/m\S\2 Ao root diam 2.9 cm Ao root area 6.5 cm\S\2 ACS 1.7 cm LA dimension 3.3 cm LA/Ao 1.2 LVOT diam 2.0 cm LVOT area 3.3 cm\S\2 Doppler Measurements and Calculations MV E max sylvie 100.8 cm/sec MV A max sylvie 102.2 cm/sec MV E/A 0.99 MV P1/2t max sylvie 99.2 cm/sec MV P1/2t 62.9 msec MVA(P1/2t) 3.5 cm\S\2 MV dec slope 461.8 cm/sec\S\2 MV dec time 0.29 sec Ao V2 max 98.4 cm/sec Ao max PG 3.9 mmHg Ao max PG (full) -1.20 mmHg SUJEY(V,A) 3.8 cm\S\2 SUJEY(V,D) 3.8 cm\S\2 LV V1 max PG 5.1 mmHg LV V1 max 112.6 cm/sec PA V2 max 94.9 cm/sec PA max PG 3.6 mmHg TR max sylvie 197.6 cm/sec
[2017-07-04] MEDS ORDERED: METOPROLOL TARTRATE 25 MG TAB PO SCH (09:00)
[2017-07-04] MEDS ORDERED: FUROSEMIDE INJ 80 MG in SYRINGE 0 ML IV SCH ×2 (09:00→17:00)
--- NOTE | 2017-07-04 09:57 | Progress Note ---
Medicine Progress Note Date & Time of Visit: Jul 04, 2017 at 09:45. Subjective seen resting in chair, comfortable, on baseline 3 liters o2 via NC states she feels improved compared to yesterday states breathing is better, still has productive cough denies leg pain, but does report it is more swollen than normal still [place] some parethesia/numbness on the 4th and 5th digit of right hand, lateral forearm no other symptoms Objective Last 8 Hrs Date Time Temp Pulse Resp B/P (MAP) Pulse Ox O2 Delivery O2 Flow Rate FiO2 07/04/17 08:00 Nasal Cannula 3.0 07/04/17 07:29 88 16 94 Nasal Cannula 3.0 07/04/17 07:24 36.6 80 16 144/79 (100) 94 Nasal Cannula 3.0 07/04/17 04:42 36.7 77 18 121/72 (88) 92 Nasal Cannula 3.0 07/04/17 04:00 Nasal Cannula 3.0 07/04/17 02:59 82 16 92 Nasal Cannula 3.0 07/04/17 02:52 36.5 81 18 123/56 92 Nasal Cannula 3.0 07/04/17 02:01 106 14 88/50 92 07/04/17 01:51 110 14 90 Physical Exam: General- oriented x 3, not in distress, speaks in sentences with no effort Eyes- EOMI, anicteric ENT- oropharynx clear Neck- supple, no JVD, no adenopathy, no thyromegaly Lungs- mild scattered wheeze bilaterally, no rales Heart-normal rate, irregularly irregular rhythm, no murmurs Abdomen- normal bowel sounds, soft, nontender Extremities- (+) mild edema of the left leg, mild warmth, no tenderness right leg essentially normal Neuro- alert, oriented x 3; PERRL, EOMI; no facial palsy; no dysarthria; motor 5 /5 bilaterally; sensation: normal except mild decreased sensation digit 4 and 5 right hand Skin- warm & dry Laboratory Results: Last 24 Hours Test 07/03/17 20:50 07/04/17 00:02 07/04/17 01:07 07/04/17 02:55 White Blood Count 10.52 K/uL Red Blood Count 6.27 M/uL Hemoglobin 16.1 g/dL Hematocrit 49.2 % Mean Corpuscular Volume 78.5 fL Mean Corpuscular Hemoglobin 25.7 pg Mean Corpuscular Hemoglobin Concent 32.7 g/dl Platelet Count 140 K/uL Neutrophils (%) (Auto) 71.2 % Lymphocytes (%) (Auto) 17.0 % Monocytes (%) (Auto) 10.0 % Eosinophils (%) (Auto) 1.0 % Basophils (%) (Auto) 0.3 % Neutrophils # (Auto) 7.50 K/uL Lymphocytes # (Auto) 1.79 K/uL Monocytes # (Auto) 1.05 K/uL Eosinophils # (Auto) 0.10 K/uL Basophils # (Auto) 0.03 K/uL RDW Standard Deviation 54.9 fL RDW Coefficient of Variation 19.3 % Immature Granulocyte % (Auto) 0.5 % Immature Granulocyte # (Auto) 0.05 K/uL Prothrombin Time 28.1 SECONDS Prothromb Time International Ratio 2.5 Activated Partial Thromboplast Time 41.4 SECONDS Partial Thromboplastin Ratio 1.6 Sodium Level 140 mmol/L Potassium Level 3.8 mmol/L Chloride Level 100 mmol/L Carbon Dioxide Level 33 mmol/L Anion Gap 7.0 mmol/L Blood Urea Nitrogen 66 mg/dl Creatinine 1.83 mg/dl Estimated GFR () 31.2 Estimated GFR (Non- 26.9 BUN/Creatinine Ratio 35.9 Random Glucose 131 mg/dl Estimated Average Glucose 154 mg/dl Hemoglobin A1c 7.0 % Calcium Level 10.0 mg/dl Magnesium Level 2.1 mg/dl Total Bilirubin 0.3 mg/dl Aspartate Amino Transf (AST/SGOT) 19 U/L Alanine Aminotransferase (ALT/SGPT) 29 U/L Alkaline Phosphatase 109 U/L Troponin I < 0.015 ng/ml Pro-B-Type Natriuretic Peptide 667 pg/ml Total Protein 7.7 gm/dl Albumin 3.2 gm/dl Globulin 4.5 gm/dl Albumin/Globulin Ratio 0.7 Thyroid Stimulating Hormone (TSH) 0.958 uIu/ml Venous Blood pH 7.32 Venous Blood Partial Pressure CO2 70 mmHg Venous Blood Partial Pressure O2 48 mmHg Venous Blood HCO3 35 mmol/L Venous Blood Oxygen Saturation 78.5 % Venous Blood Base Excess 6.4 mEq/L Lactic Acid Level 1.1 mmol/L Bedside Glucose 150 mg/dl Influenza Type A (RT-PCR) Neg for Influ A Influenza Type A Antigen Neg for Influ A Influenza Type B Antigen Neg for Influ B Influenza Type B (RT-PCR) Neg for Influ B Test 07/04/17 05:36 07/04/17 07:30 07/04/17 07:35 White Blood Count 10.67 K/uL Red Blood Count 6.39 M/uL Hemoglobin 15.9 g/dL Hematocrit 50.5 % Mean Corpuscular Volume 79.0 fL Mean Corpuscular Hemoglobin 24.9 pg Mean Corpuscular Hemoglobin Concent 31.5 g/dl Platelet Count 120 K/uL Neutrophils (%) (Auto) 91.0 % Lymphocytes (%) (Auto) 6.8 % Monocytes (%) (Auto) 1.7 % Eosinophils (%) (Auto) 0.1 % Basophils (%) (Auto) 0.2 % Neutrophils # (Auto) 9.71 K/uL Lymphocytes # (Auto) 0.73 K/uL Monocytes # (Auto) 0.18 K/uL Eosinophils # (Auto) 0.01 K/uL Basophils # (Auto) 0.02 K/uL RDW Standard Deviation 54.5 fL RDW Coefficient of Variation 19.2 % Immature Granulocyte % (Auto) 0.2 % Immature Granulocyte # (Auto) 0.02 K/uL Platelet Estimate DECREASED Prothrombin Time 29.0 SECONDS Prothromb Time International Ratio 2.6 Sodium Level 141 mmol/L Potassium Level 4.1 mmol/L Chloride Level 100 mmol/L Carbon Dioxide Level 32 mmol/L Anion Gap 9.0 mmol/L Blood Urea Nitrogen 67 mg/dl Creatinine 1.98 mg/dl Est Creatinine Clear Calc Drug Dose 35.4 ml/min Estimated GFR () 28.3 Estimated GFR (Non- 24.5 BUN/Creatinine Ratio 33.8 Random Glucose 175 mg/dl Calcium Level 10.0 mg/dl Troponin I < 0.015 ng/ml Bedside Glucose 194 mg/dl Urine Color YELLOW Urine Appearance CLEAR Urine pH 5.0 Urine Specific [place] 1.013 Urine Protein NEG Urine Glucose (UA) NEG Urine Ketones NEG Urine Occult Blood NEG Urine Nitrite NEG Urine Bilirubin NEG Urine Urobilinogen NEG Urine Leukocyte Esterase SMALL Urine WBC (Auto) 1-5 /hpf Urine RBC (Auto) 0-4 /hpf Urine Hyaline Casts (Auto) 1-5 /lpf Urine Epithelial Cells (Auto) 10-20 /lpf Urine Bacteria (Auto) NEG Assessment & Plan ACUTE ON CHRONIC HYPOXIC RESPIRATORY FAILURE LIKELY FROM COPD EXACERBATION FROM ACUTE BRONCHITIS, POSSIBLE BILATERAL LOWER LOBE PNEUMONIA VS. ASPIRATION - improved continue Prednisone 40mg daily Nebs q6h Doxycycline BID continue usual bronchodilators CHF EXACERBATION UNLIKELY - CXR no edema BNP normal - resume usual Lasix 80mg BID PARESTHESIAS, DIGIT4 AND 5, RIGHT - likely Ulnar Nerve unvolvement - may need EMG as outpatient LEFT LOWER EXTREMITY EDEMA - chronic as per patient increased lately - Doppler US: negative - continue Lasix monitor - component of Cellulitis? Doxycycline started CAD/CABG A FIB/A FLUTTER - continue Metoprolol, Coumadin - monitor INR Hypertension - continue Metoprolol CKD 3 - records requested from PCP - monitor Breast cancer, left, status post surgery, radiation, ongoing hormone therapy. Ongoing tobacco abuse. - Nicotine Patch JONATHON - CPAP DVT proph Coumadin Dispo pending lives at home with daughter anticipate d/c home when medically stable, PT OT ordered Current Inpatient Medications: Current Inpatient Medications Medications (Trade) Dose Ordered Sig/Isidoro Route Start Time Stop Time Status Last Admin Dose Admin Doxycycline Hyclate 100 mg/ Dextrose 110 ml @ 50 mls/hr BID IV 07/04/17 21:00 07/11/17 20:59 Insulin Glargine (Lantus Solostar Pen) 5 units DAILY SC 07/05/17 09:00 08/04/17 08:59 Acetaminophen (Tylenol Tab) 650 mg Q4H PRN PO 07/04/17 00:45 08/03/17 00:44 Nitroglycerin (Nitrostat Tab) 0.4 mg UD PRN SL 07/04/17 00:45 08/03/17 00:44 Insulin Aspart (novoLOG ASPART) SLIDING SCALE If C... ACHS SC 07/04/17 07:00 08/03/17 06:59 07/04/17 08:05 2 UNITS Glucose (Glucose 40% Gel) 15-30 GRAMS 15 GRAMS... UD PRN PO 07/04/17 00:45 08/03/17 00:44 Glucose (Glucose Chew Tab) 4-8 Tablets 4 Tabl... UD PRN PO 07/04/17 00:45 08/03/17 00:44 Dextrose (Dextrose 50% 50ML Syringe) 25-50ML OF 50% DW IV FOR... UD PRN IV 07/04/17 00:45 08/03/17 00:44 Glucagon (Glucagon Inj) 1 mg UD PRN SQ 07/04/17 00:45 08/03/17 00:44 Anastrozole (Arimidex Tab) 1 mg DAILY PO 07/04/17 09:00 08/03/17 08:59 07/04/17 08:06 1 MG Docusate Sodium (coLACE CAP) 100 mg DAILY PO 07/04/17 09:00 08/03/17 08:59 07/04/17 08:07 100 MG Levothyroxine Sodium (Synthroid Tab) 112 mcg DAILYBB PO 07/04/17 06:00 08/03/17 06:59 07/04/17 05:33 112 MCG Pantoprazole Sodium (Protonix Tab) 40 mg DAILY PO 07/04/17 09:00 08/03/17 08:59 07/04/17 08:06 40 MG Potassium Chloride (Klor-Con Tab) 20 meq TID PO 07/04/17 09:00 08/03/17 08:59 07/04/17 08:09 20 MEQ Pregabalin (Lyrica Cap) 150 mg TID PO 07/04/17 09:00 08/03/17 08:59 07/04/17 08:14 150 MG Rosuvastatin Calcium (Crestor Tab) 10 mg DAILY PO 07/04/17 09:00 08/03/17 08:59 07/04/17 08:03 10 MG Sertraline HCl (Zoloft Tab) 150 mg DAILY PO 07/04/17 09:00 08/03/17 08:59 07/04/17 08:07 150 MG Febuxostat (Uloric) 40 mg DAILY PO 07/04/17 09:00 08/03/17 08:59 07/04/17 08:08 40 MG Aspirin (Ecotrin Tab) 81 mg QAM PO 07/04/17 09:00 08/03/17 08:59 07/04/17 08:07 81 MG Furosemide 80 mg/ Syringe 8 ml @ 4 mls/min BID17 IV 07/04/17 09:00 08/03/17 08:59 Prednisone (PredniSONE TAB) 40 mg DAILY PO 07/05/17 09:00 07/10/17 08:59 Tramadol HCl (Ultram Tab) not relieved by tylenol @ Q6H PRN PO 07/04/17 01:15 08/03/17 01:14 Hydromorphone HCl (Dilaudid Inj) 0.5 mg Q3H PRN IV 07/04/17 01:15 07/18/17 01:14 Ondansetron HCl (Zofran Inj) 4 mg Q6H PRN IV 07/04/17 01:15 08/03/17 01:14 Nicotine (Nicoderm Cq 21MG Patch) 1 patch QAM TD 07/04/17 09:00 08/03/17 08:59 07/04/17 08:10 1 PATCH Miscellaneous (Remove Nicoderm Patch) 1 ea HS N/A 07/04/17 21:00 08/03/17 20:59 Ipratropium [place] (Atrovent 0.02% 0.5MG/2.5ML Neb) 0.5 mg Q6R INH 07/04/17 03:00 08/03/17 02:59 07/04/17 07:29 0.5 MG Levalbuterol (Xopenex 1.25MG/ 0.5ML Neb) 1.25 mg Q6R INH 07/04/17 03:00 08/03/17 02:59 07/04/17 07:29 1.25 MG Ipratropium [place] (Atrovent 0.02% 0.5MG/2.5ML Neb) 0.5 mg Q4H PRN INH 07/04/17 01:30 08/03/17 01:29 Levalbuterol (Xopenex 1.25MG/ 0.5ML Neb) 1.25 mg Q4H PRN INH 07/04/17 01:30 08/03/17 01:29 Metoprolol Tartrate (Lopressor Tab) 25 mg BID PO 07/04/17 09:00 08/03/17 08:59 07/04/17 08:08 25 MG
--- NOTE | 2017-07-04 11:14 | Nephrology Consultation ---
Nephrology Consultation Date & Providers Date of Consultation: Jul 04, 2017. Primary Care Provider: Esequiel Bran D.O. Referring Provider: Reason for Consultation Evaluation of progressive edema in this patient w/ CKD History of Present Illness Ms. Rojas is a 72 year old white female who is seen at the request of Dr. Snow for evaluation of progressive LE swelling in the setting of CKD. Medical records in the office EMR were reviewed and are summarized as follows: Ms. Rojas has stage III CKD due to diabetic nephropathy. Her baseline creatinine has been 1.4 - 1.8 depending upon volume status. Her medical history is also significant for HTN, BMI > 40, AODM, ASCVD s/p CABG x 3, hyperlipidemia, PE requiring chronic anticoagulation therapy, hypothyroidism, gout, polycythemia and h/o tobacco use. Ms. Rojas was last seen in the [facility] 03/04. At that time her kidney function was stable. She had only mild lower extremity edema and her weight was stable at 139 kg (306 lbs). Ms. Rojas reports that over the last two weeks she has suffered from progressive lower extremity edema and exertional dyspnea. She has not had any associated fever or angina. Ms. Rojas presented to the ED where CXR revealed mild pulmonary vascular congestion and paient was noted to have erythema of her lower extremities. She was admitted to the hospital for IV diuretic therapy and antibiotics for presumed LE cellulitis. Past Medical/Surgical History Medical: # CKD stage III w/ baseline creatinine 1.4 - 1.5 # HTN # BMI > 40 # AODM # ASCVD s/p CABG x 3 # hyperlipidemia # PE requiring chronic anticoagulation therapy # hypothyroidism # gout # polycythemia # h/o tobacco use. Allergies Coded Allergies: Melatonin (Verified Allergy, Severe, RASH, 07/03/17) Penicillins (Verified Allergy, Unknown, UNLNOWN, 01/20/16) Inpatient Medications Current Inpatient Medications Medications (Trade) Dose Ordered Sig/Isidoro Route Start Time Stop Time Status Last Admin Dose Admin Doxycycline Hyclate 100 mg/ Dextrose 110 ml @ 50 mls/hr BID IV 07/04/17 21:00 07/11/17 20:59 Insulin Glargine (Lantus Solostar Pen) 5 units DAILY SC 07/05/17 09:00 08/04/17 08:59 Acetaminophen (Tylenol Tab) 650 mg Q4H PRN PO 07/04/17 00:45 08/03/17 00:44 Nitroglycerin (Nitrostat Tab) 0.4 mg UD PRN SL 07/04/17 00:45 08/03/17 00:44 Insulin Aspart (novoLOG ASPART) SLIDING SCALE If C... ACHS SC 07/04/17 07:00 08/03/17 06:59 07/04/17 08:05 2 UNITS Glucose (Glucose 40% Gel) 15-30 GRAMS 15 GRAMS... UD PRN PO 07/04/17 00:45 08/03/17 00:44 Glucose (Glucose Chew Tab) 4-8 Tablets 4 Tabl... UD PRN PO 07/04/17 00:45 08/03/17 00:44 Dextrose (Dextrose 50% 50ML Syringe) 25-50ML OF 50% DW IV FOR... UD PRN IV 07/04/17 00:45 08/03/17 00:44 Glucagon (Glucagon Inj) 1 mg UD PRN SQ 07/04/17 00:45 08/03/17 00:44 Anastrozole (Arimidex Tab) 1 mg DAILY PO 07/04/17 09:00 08/03/17 08:59 07/04/17 08:06 1 MG Docusate Sodium (coLACE CAP) 100 mg DAILY PO 07/04/17 09:00 08/03/17 08:59 07/04/17 08:07 100 MG Levothyroxine Sodium (Synthroid Tab) 112 mcg DAILYBB PO 07/04/17 06:00 08/03/17 06:59 07/04/17 05:33 112 MCG Pantoprazole Sodium (Protonix Tab) 40 mg DAILY PO 07/04/17 09:00 08/03/17 08:59 07/04/17 08:06 40 MG Potassium Chloride (Klor-Con Tab) 20 meq TID PO 07/04/17 09:00 08/03/17 08:59 07/04/17 08:09 20 MEQ Pregabalin (Lyrica Cap) 150 mg TID PO 07/04/17 09:00 08/03/17 08:59 07/04/17 08:14 150 MG Rosuvastatin Calcium (Crestor Tab) 10 mg DAILY PO 07/04/17 09:00 08/03/17 08:59 07/04/17 08:03 10 MG Sertraline HCl (Zoloft Tab) 150 mg DAILY PO 07/04/17 09:00 08/03/17 08:59 07/04/17 08:07 150 MG Febuxostat (Uloric) 40 mg DAILY PO 07/04/17 09:00 08/03/17 08:59 07/04/17 08:08 40 MG Aspirin (Ecotrin Tab) 81 mg QAM PO 07/04/17 09:00 08/03/17 08:59 07/04/17 08:07 81 MG Prednisone (PredniSONE TAB) 40 mg DAILY PO 07/05/17 09:00 07/10/17 08:59 Tramadol HCl (Ultram Tab) not relieved by tylenol @ Q6H PRN PO 07/04/17 01:15 08/03/17 01:14 Hydromorphone HCl (Dilaudid Inj) 0.5 mg Q3H PRN IV 07/04/17 01:15 07/18/17 01:14 Ondansetron HCl (Zofran Inj) 4 mg Q6H PRN IV 07/04/17 01:15 08/03/17 01:14 Nicotine (Nicoderm Cq 21MG Patch) 1 patch QAM TD 07/04/17 09:00 08/03/17 08:59 07/04/17 08:10 1 PATCH Miscellaneous (Remove Nicoderm Patch) 1 ea HS N/A 07/04/17 21:00 08/03/17 20:59 Ipratropium [place] (Atrovent 0.02% 0.5MG/2.5ML Neb) 0.5 mg Q6R INH 07/04/17 03:00 08/03/17 02:59 07/04/17 07:29 0.5 MG Levalbuterol (Xopenex 1.25MG/ 0.5ML Neb) 1.25 mg Q6R INH 07/04/17 03:00 08/03/17 02:59 07/04/17 07:29 1.25 MG Ipratropium [place] (Atrovent 0.02% 0.5MG/2.5ML Neb) 0.5 mg Q4H PRN INH 07/04/17 01:30 12/16/17 01:29 Levalbuterol (Xopenex 1.25MG/ 0.5ML Neb) 1.25 mg Q4H PRN INH 07/04/17 01:30 08/03/17 01:29 Metoprolol Tartrate (Lopressor Tab) 25 mg BID PO 07/04/17 09:00 08/03/17 08:59 07/04/17 08:08 25 MG Warfarin Sodium (Coumadin Tab) 8 mg DAILY@16 PO 07/04/17 16:00 08/03/17 15:59 Furosemide (Lasix Tab) 80 mg BID17 PO 07/04/17 17:00 08/03/17 16:59 Family History Patient reports no known family medical history. Negative for CKD/ESRD Social History Smoking Status: Current Every Day Smoker Marital Status: Occupation: retired . Lives in [place], [place]. Retired. 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 H/o tobacco use 1.5 ppd. Patient denies alcohol use. Review of Systems Constitutional: No fever Respiratory: + wheezing, + dyspnea on exertion, No cough Cardiovascular: No chest pain Abdomen: No pain, No nausea, No vomiting A complete review of systems was performed. Pertinent positives are noted above. All other systems are negative. Physical Exam Date Time Temp Pulse Resp B/P (MAP) Pulse Ox O2 Delivery O2 Flow Rate FiO2 07/04/17 08:00 Nasal Cannula 3.0 07/04/17 07:29 88 16 94 Nasal Cannula 3.0 07/04/17 07:24 36.6 80 16 144/79 (100) 94 Nasal Cannula 3.0 07/04/17 04:42 36.7 77 18 121/72 (88) 92 Nasal Cannula 3.0 07/04/17 04:00 Nasal Cannula 3.0 07/04/17 02:59 82 16 92 Nasal Cannula 3.0 07/04/17 02:52 36.5 81 18 123/56 92 Nasal Cannula 3.0 07/04/17 02:01 106 14 88/50 92 07/04/17 01:51 110 14 90 07/04/17 01:45 104/66 07/04/17 01:36 112 18 92 07/04/17 01:36 112 07/04/17 01:30 92/61 07/04/17 01:21 123 14 93 07/04/17 01:15 85/57 07/04/17 01:06 116 94 07/04/17 01:00 89/59 07/04/17 00:58 87/53 07/04/17 00:58 124 20 87/53 93 Nasal Cannula 3.0 07/04/17 00:57 67/44 07/04/17 00:51 124 17 07/04/17 00:46 80/49 07/04/17 00:43 85/45 07/04/17 00:36 120 21 96 07/04/17 00:31 70/55 07/04/17 00:21 111 14 98 07/04/17 00:06 110 16 96 07/04/17 00:01 134/ 07/03/17 23:51 109 17 97 07/03/17 23:36 99 96 07/03/17 23:31 99/38 07/03/17 23:21 93 17 97 07/03/17 23:06 81 21 97 07/03/17 23:01 113/63 07/03/17 22:53 111/58 07/03/17 22:52 102/61 07/03/17 22:51 80 07/03/17 22:50 79 20 88 Room Air 07/03/17 21:36 78 18 94 07/03/17 21:31 80/59 07/03/17 21:21 80 15 95 07/03/17 21:06 80 16 94 07/03/17 21:01 114/71 07/03/17 20:52 78 20 96 Nasal Cannula 3.0 07/03/17 20:47 79 07/03/17 20:30 124/75 07/03/17 20:14 36.4 79 20 110/71 89 Room Air General Appearance: no apparent distress, + obese Head: normocephalic, atraumatic Eyes: PERRL, EOMI Neck: no adenopathy, + pertinent finding (short, thick) Respiratory/Chest: lungs clear, no respiratory distress Cardiovascular: regular rate, rhythm Abdomen/GI: normal bowel sounds, non tender, soft Extremities/Musculoskelatal: + swelling (3+ pretibial pitting edema) Neurologic/Psych: alert, oriented x 3 Skin: + pertinent finding (erythema bilateral pretibial region) Laboratory Results 07/04 ECHOCARDIOGRAM: LVEF 55 - 60%, no significant Last 24 Hours Test 07/03/17 20:50 07/04/17 00:02 07/04/17 01:07 07/04/17 02:55 White Blood Count 10.52 K/uL Red Blood Count 6.27 M/uL Hemoglobin 16.1 g/dL Hematocrit 49.2 % Mean Corpuscular Volume 78.5 fL Mean Corpuscular Hemoglobin 25.7 pg Mean Corpuscular Hemoglobin Concent 32.7 g/dl Platelet Count 140 K/uL Neutrophils (%) (Auto) 71.2 % Lymphocytes (%) (Auto) 17.0 % Monocytes (%) (Auto) 10.0 % Eosinophils (%) (Auto) 1.0 % Basophils (%) (Auto) 0.3 % Neutrophils # (Auto) 7.50 K/uL Lymphocytes # (Auto) 1.79 K/uL Monocytes # (Auto) 1.05 K/uL Eosinophils # (Auto) 0.10 K/uL Basophils # (Auto) 0.03 K/uL RDW Standard Deviation 54.9 fL RDW Coefficient of Variation 19.3 % Immature Granulocyte % (Auto) 0.5 % Immature Granulocyte # (Auto) 0.05 K/uL Prothrombin Time 28.1 SECONDS Prothromb Time International Ratio 2.5 Activated Partial Thromboplast Time 41.4 SECONDS Partial Thromboplastin Ratio 1.6 Sodium Level 140 mmol/L Potassium Level 3.8 mmol/L Chloride Level 100 mmol/L Carbon Dioxide Level 33 mmol/L Anion Gap 7.0 mmol/L Blood Urea Nitrogen 66 mg/dl Creatinine 1.83 mg/dl Estimated GFR () 31.2 Estimated GFR (Non- 26.9 BUN/Creatinine Ratio 35.9 Random Glucose 131 mg/dl Estimated Average Glucose 154 mg/dl Hemoglobin A1c 7.0 % Calcium Level 10.0 mg/dl Magnesium Level 2.1 mg/dl Total Bilirubin 0.3 mg/dl Aspartate Amino Transf (AST/SGOT) 19 U/L Alanine Aminotransferase (ALT/SGPT) 29 U/L Alkaline Phosphatase 109 U/L Troponin I < 0.015 ng/ml Pro-B-Type Natriuretic Peptide 667 pg/ml Total Protein 7.7 gm/dl Albumin 3.2 gm/dl Globulin 4.5 gm/dl Albumin/Globulin Ratio 0.7 Thyroid Stimulating Hormone (TSH) 0.958 uIu/ml Venous Blood pH 7.32 Venous Blood Partial Pressure CO2 70 mmHg Venous Blood Partial Pressure O2 48 mmHg Venous Blood HCO3 35 mmol/L Venous Blood Oxygen Saturation 78.5 % Venous Blood Base Excess 6.4 mEq/L Lactic Acid Level 1.1 mmol/L Bedside Glucose 150 mg/dl Influenza Type A (RT-PCR) Neg for Influ A Influenza Type A Antigen Neg for Influ A Influenza Type B Antigen Neg for Influ B Influenza Type B (RT-PCR) Neg for Influ B Test 07/04/17 05:36 07/04/17 07:30 07/04/17 07:35 White Blood Count 10.67 K/uL Red Blood Count 6.39 M/uL Hemoglobin 15.9 g/dL Hematocrit 50.5 % Mean Corpuscular Volume 79.0 fL Mean Corpuscular Hemoglobin 24.9 pg Mean Corpuscular Hemoglobin Concent 31.5 g/dl Platelet Count 120 K/uL Neutrophils (%) (Auto) 91.0 % Lymphocytes (%) (Auto) 6.8 % Monocytes (%) (Auto) 1.7 % Eosinophils (%) (Auto) 0.1 % Basophils (%) (Auto) 0.2 % Neutrophils # (Auto) 9.71 K/uL Lymphocytes # (Auto) 0.73 K/uL Monocytes # (Auto) 0.18 K/uL Eosinophils # (Auto) 0.01 K/uL Basophils # (Auto) 0.02 K/uL RDW Standard Deviation 54.5 fL RDW Coefficient of Variation 19.2 % Immature Granulocyte % (Auto) 0.2 % Immature Granulocyte # (Auto) 0.02 K/uL Platelet Estimate DECREASED Prothrombin Time 29.0 SECONDS Prothromb Time International Ratio 2.6 Sodium Level 141 mmol/L Potassium Level 4.1 mmol/L Chloride Level 100 mmol/L Carbon Dioxide Level 32 mmol/L Anion Gap 9.0 mmol/L Blood Urea Nitrogen 67 mg/dl Creatinine 1.98 mg/dl Est Creatinine Clear Calc Drug Dose 35.4 ml/min Estimated GFR () 28.3 Estimated GFR (Non- 24.5 BUN/Creatinine Ratio 33.8 Random Glucose 175 mg/dl Calcium Level 10.0 mg/dl Troponin I < 0.015 ng/ml Bedside Glucose 194 mg/dl Urine Color YELLOW Urine Appearance CLEAR Urine pH 5.0 Urine Specific [place] 1.013 Urine Protein NEG Urine Glucose (UA) NEG Urine Ketones NEG Urine Occult Blood NEG Urine Nitrite NEG Urine Bilirubin NEG Urine Urobilinogen NEG Urine Leukocyte Esterase SMALL Urine WBC (Auto) 1-5 /hpf Urine RBC (Auto) 0-4 /hpf Urine Hyaline Casts (Auto) 1-5 /lpf Urine Epithelial Cells (Auto) 10-20 /lpf Urine Bacteria (Auto) NEG Impression (1) Diastolic CHF (2) Acute kidney injury (3) Chronic kidney disease (4) Volume overload (5) Diabetes Ms. Rojas was admitted to the hospital for evaluation of progressive LE edema, BAKER and LE cellulitis. She denies any change to her diet. She has been taking Furosemide 80 mg po bid and recently added PRN Zaroxolyn. Despite these changes her LE has worsened. Weight remains stable at 306 lbs. Echocardiogram reveals preserved LVEF 55 - 60% Recommendations PERIPHERAL EDEMA: -- Will change to Furosemide 80 mg IV BID -- Monitor I&O's, daily weight -- Consult dietitian to provide education on 1500 mg / day sodium restricted diet -- Once edema has improved will consider oral Demadex due to improved bioavailability ACUTE KIDNEY INJURY: -- Baseline creatinine has been 1.4 - 1.8 depending upon volume status -- Urine sediment is bland, patient is not proteinuric -- No acute indication for renal US at this time -- Monitor PRP
--- NOTE | 2017-07-04 13:32 | Gastrointestinal Consultation ---
Gastrointestinal Consultation Date of Consultation: Jul 04, 2017 Attending Physician: Dr. Snow Consulting Physician: Temitope Caldwell PA-C Reason for Consultation: postprandial vomiting, possible aspiration History of Present Illness Patient is a 72 year old female with a PMH of chronic respiratory failure, COPD , CAD s/p CABG, systolic CHF, PVD, Atrial fibrillation, recurrent PE/DVT on anticoagulation, breast cancer, JONATHON, DM2, and CKD III who presented to the hospital due to bilateral leg swelling and a productive cough. GI has been consulted for further evaluation of possible aspiration. The patient provides minimal history to me at the time of the visit as she keeps falling asleep. She is able to tell me that she chokes on her food occasionally. She reports sometimes she chokes on solids and sometimes she chokes on liquids. She denies other GI symptoms at present. After a conversation with nursing staff, it was reported that the patient's family reports she will often begin coughing while eating and choke on her food. Per nursing, the patient has been evaluated by speech already and was reported to have a strong swallow though I have not seen documentation of this myself. The patient reportedly has no family history of GI malignancy. She does report shortness of breath, but feels it is improving slightly since admission. She is on Coumadin due to recurrent blood clots. Her INR is 2.6. She is being followed by nephrology due to her kidney function. She has had a CXR that indicates cardiomegaly and pulmonary vascular congestion with atelectasis. A CT of the head was performed during this admission due to reports of weakness but did not indicate any acute abnormality. Past Medical/Surgical History Medical Problems: (1) Left leg cellulitis Status: Acute (2) Shortness of breath Status: Acute Past Medical History: chronic respiratory failure, COPD, CAD s/p CABG, systolic CHF, PVD, Atrial fibrillation, recurrent PE/DVT on anticoagulation, breast cancer, JONATHON, DM2, and CKD III Past Surgical History: Back surgery, ankle surgery, CABG Family History Patient reports no known family medical history. Social History Smoking Status: Current Every Day Smoker Marital Status: Housing Status: lives with family Occupation Status: retired Allergies Coded Allergies: Melatonin (Verified Allergy, Severe, RASH, 07/03/17) Penicillins (Verified Allergy, Unknown, UNLNOWN, 01/20/16) Current Medications Home Meds and Scripts Medications Dose Route/Sig Max Daily Dose Days Date Category Dulera 100/5 Mcg (Mometasone Furoate-Formoterol) 1 Aer Aer 1 Aer INH BID 07/03/17 Reported Tudorza Pressair (Aclidinium [place]) 400 Mcg/Act Aer INH UD 07/03/17 Reported Jantoven (Warfarin Sodium) 4 Mg Tab 2 Tabs PO DAILY 07/03/17 Reported Rosuvastatin Calcium 10 Mg Tab 10 Mg PO DAILY 07/03/17 Reported Arimidex (Anastrozole) 1 Mg Tab 1 Mg PO DAILY 07/03/17 Reported Caltrate 600 Plus (Calcium Carbonate-Vitamin D W/) 1 Tab Tab 1 Tab PO DAILY 07/03/17 Reported Klor-Con (Potassium Chloride) 20 Meq Tabcr 20 Meq PO TID 01/20/16 Reported Protonix (Pantoprazole Sodium) 40 Mg Tab 40 Mg PO DAILY 01/20/16 Reported Mag-Ox (Magnesium Oxide) 400 Mg Tab 400 Mg PO DAILY 01/20/16 Reported Uloric (Febuxostat) 40 Mg Tab 1 Tab PO DAILY 30 01/20/16 Reported Aldactone (Spironolactone) 25 Mg Tab 25 Mg PO DAILY 01/20/16 Reported Synthroid (Levothyroxine Sodium) 112 Mcg Tab 112 Mcg PO DAILY 01/20/16 Reported Docusate Sodium 100 Mg Cap 1 Cap PO DAILY 7 01/20/16 Reported Lyrica (Pregabalin) 150 Mg Cap 150 Mg PO TID 01/20/16 Reported Lasix (Furosemide) 80 Mg Tab 80 Mg PO BID 01/20/16 Reported Lopressor (Metoprolol Tartrate) 25 Mg Tab 37.5 Mg PO QAM 01/20/16 Reported Zoloft (Sertraline HCl) 100 Mg Tab 150 Mg PO DAILY 01/20/16 Reported Review of Systems Constitutional: + problem reported (weight gain), No weakness Respiratory: + cough, + shortness of breath, + dyspnea on exertion Cardiac: No chest pain Abdomen: + problem reported (reports choking on food at beginning of swallow), No pain, No nausea, No vomiting, No diarrhea, No constipation, No GI bleeding Musculoskeletal: No joint pain Neuro: No problem reported Skin: No problem reported ROS was very limited due to patient falling asleep repeatedly Physical Exam Date Time Temp Pulse Resp B/P (MAP) Pulse Ox O2 Delivery O2 Flow Rate FiO2 07/04/17 12:23 36.6 90 16 103/66 (78) 90 3.0 07/04/17 08:00 Nasal Cannula 3.0 07/04/17 07:29 88 16 94 Nasal Cannula 3.0 07/04/17 07:24 36.6 80 16 144/79 (100) 94 Nasal Cannula 3.0 07/04/17 04:42 36.7 77 18 121/72 (88) 92 Nasal Cannula 3.0 07/04/17 04:00 Nasal Cannula 3.0 07/04/17 02:59 82 16 92 Nasal Cannula 3.0 07/04/17 02:52 36.5 81 18 123/56 92 Nasal Cannula 3.0 07/04/17 02:01 106 14 88/50 92 07/04/17 01:51 110 14 90 07/04/17 01:45 104/66 07/04/17 01:36 112 18 92 07/04/17 01:36 112 07/04/17 01:30 92/61 07/04/17 01:21 123 14 93 07/04/17 01:15 85/57 07/04/17 01:06 116 94 07/04/17 01:00 89/59 07/04/17 00:58 87/53 07/04/17 00:58 124 20 87/53 93 Nasal Cannula 3.0 07/04/17 00:57 67/44 07/04/17 00:51 124 17 07/04/17 00:46 80/49 07/04/17 00:43 85/45 07/04/17 00:36 120 21 96 07/04/17 00:31 70/55 07/04/17 00:21 111 14 98 07/04/17 00:06 110 16 96 07/04/17 00:01 134/ 07/03/17 23:51 109 17 97 07/03/17 23:36 99 96 07/03/17 23:31 99/38 07/03/17 23:21 93 17 97 07/03/17 23:06 81 21 97 07/03/17 23:01 113/63 07/03/17 22:53 111/58 07/03/17 22:52 102/61 07/03/17 22:51 80 07/03/17 22:50 79 20 88 Room Air 07/03/17 21:36 78 18 94 07/03/17 21:31 80/59 07/03/17 21:21 80 15 95 07/03/17 21:06 80 16 94 07/03/17 21:01 114/71 07/03/17 20:52 78 20 96 Nasal Cannula 3.0 07/03/17 20:47 79 07/03/17 20:30 124/75 07/03/17 20:14 36.4 79 20 110/71 89 Room Air General Appearance: WD/WN Eyes: PERRL ENT: hearing grossly normal Respiratory/Chest: + decreased breath sounds Cardiovascular: + irregularly irregular Abdomen: normal bowel sounds, non tender, soft Extremities: non-tender Neurologic/Psych: alert, oriented x 3 Skin: normal color Laboratory Results Last 24 Hours Test 07/03/17 20:50 07/04/17 00:02 07/04/17 01:07 07/04/17 02:55 White Blood Count 10.52 K/uL Red Blood Count 6.27 M/uL Hemoglobin 16.1 g/dL Hematocrit 49.2 % Mean Corpuscular Volume 78.5 fL Mean Corpuscular Hemoglobin 25.7 pg Mean Corpuscular Hemoglobin Concent 32.7 g/dl Platelet Count 140 K/uL Neutrophils (%) (Auto) 71.2 % Lymphocytes (%) (Auto) 17.0 % Monocytes (%) (Auto) 10.0 % Eosinophils (%) (Auto) 1.0 % Basophils (%) (Auto) 0.3 % Neutrophils # (Auto) 7.50 K/uL Lymphocytes # (Auto) 1.79 K/uL Monocytes # (Auto) 1.05 K/uL Eosinophils # (Auto) 0.10 K/uL Basophils # (Auto) 0.03 K/uL RDW Standard Deviation 54.9 fL RDW Coefficient of Variation 19.3 % Immature Granulocyte % (Auto) 0.5 % Immature Granulocyte # (Auto) 0.05 K/uL Prothrombin Time 28.1 SECONDS Prothromb Time International Ratio 2.5 Activated Partial Thromboplast Time 41.4 SECONDS Partial Thromboplastin Ratio 1.6 Sodium Level 140 mmol/L Potassium Level 3.8 mmol/L Chloride Level 100 mmol/L Carbon Dioxide Level 33 mmol/L Anion Gap 7.0 mmol/L Blood Urea Nitrogen 66 mg/dl Creatinine 1.83 mg/dl Estimated GFR () 31.2 Estimated GFR (Non- 26.9 BUN/Creatinine Ratio 35.9 Random Glucose 131 mg/dl Estimated Average Glucose 154 mg/dl Hemoglobin A1c 7.0 % Calcium Level 10.0 mg/dl Magnesium Level 2.1 mg/dl Total Bilirubin 0.3 mg/dl Aspartate Amino Transf (AST/SGOT) 19 U/L Alanine Aminotransferase (ALT/SGPT) 29 U/L Alkaline Phosphatase 109 U/L Troponin I < 0.015 ng/ml Pro-B-Type Natriuretic Peptide 667 pg/ml Total Protein 7.7 gm/dl Albumin 3.2 gm/dl Globulin 4.5 gm/dl Albumin/Globulin Ratio 0.7 Thyroid Stimulating Hormone (TSH) 0.958 uIu/ml Venous Blood pH 7.32 Venous Blood Partial Pressure CO2 70 mmHg Venous Blood Partial Pressure O2 48 mmHg Venous Blood HCO3 35 mmol/L Venous Blood Oxygen Saturation 78.5 % Venous Blood Base Excess 6.4 mEq/L Lactic Acid Level 1.1 mmol/L Bedside Glucose 150 mg/dl Influenza Type A (RT-PCR) Neg for Influ A Influenza Type A Antigen Neg for Influ A Influenza Type B Antigen Neg for Influ B Influenza Type B (RT-PCR) Neg for Influ B Test 07/04/17 05:36 07/04/17 07:30 07/04/17 07:35 07/04/17 11:26 White Blood Count 10.67 K/uL Red Blood Count 6.39 M/uL Hemoglobin 15.9 g/dL Hematocrit 50.5 % Mean Corpuscular Volume 79.0 fL Mean Corpuscular Hemoglobin 24.9 pg Mean Corpuscular Hemoglobin Concent 31.5 g/dl Platelet Count 120 K/uL Neutrophils (%) (Auto) 91.0 % Lymphocytes (%) (Auto) 6.8 % Monocytes (%) (Auto) 1.7 % Eosinophils (%) (Auto) 0.1 % Basophils (%) (Auto) 0.2 % Neutrophils # (Auto) 9.71 K/uL Lymphocytes # (Auto) 0.73 K/uL Monocytes # (Auto) 0.18 K/uL Eosinophils # (Auto) 0.01 K/uL Basophils # (Auto) 0.02 K/uL RDW Standard Deviation 54.5 fL RDW Coefficient of Variation 19.2 % Immature Granulocyte % (Auto) 0.2 % Immature Granulocyte # (Auto) 0.02 K/uL Platelet Estimate DECREASED Prothrombin Time 29.0 SECONDS Prothromb Time International Ratio 2.6 Sodium Level 141 mmol/L Potassium Level 4.1 mmol/L Chloride Level 100 mmol/L Carbon Dioxide Level 32 mmol/L Anion Gap 9.0 mmol/L Blood Urea Nitrogen 67 mg/dl Creatinine 1.98 mg/dl Est Creatinine Clear Calc Drug Dose 35.4 ml/min Estimated GFR () 28.3 Estimated GFR (Non- 24.5 BUN/Creatinine Ratio 33.8 Random Glucose 175 mg/dl Calcium Level 10.0 mg/dl Troponin I < 0.015 ng/ml Bedside Glucose 194 mg/dl 177 mg/dl Urine Color YELLOW Urine Appearance CLEAR Urine pH 5.0 Urine Specific [place] 1.013 Urine Protein NEG Urine Glucose (UA) NEG Urine Ketones NEG Urine Occult Blood NEG Urine Nitrite NEG Urine Bilirubin NEG Urine Urobilinogen NEG Urine Leukocyte Esterase SMALL Urine WBC (Auto) 1-5 /hpf Urine RBC (Auto) 0-4 /hpf Urine Hyaline Casts (Auto) 1-5 /lpf Urine Epithelial Cells (Auto) 10-20 /lpf Urine Bacteria (Auto) NEG Impression Patient is a 72 year old female with acute on chronic respiratory failure, acute on chronic renal insufficiency, & bilateral lower extremity edema. GI has been consulted for further evaluation of reports of choking/vomiting after eating. Plan 1) Given age, current respiratory status, & current hypercoagulable state with an INR of 2.6, would opt to begin with a non-invasive method of evaluating for morphologic abnormalities of the esophagus. Will order barium swallow at this time for further assessment. 2) Protonix 40 mg daily. Take 30 minutes prior to breakfast. 3) Further recommendations pending results of barium swallow. Pending results could consider a formal video swallow as well, however patient has reportedly already been evaluated by C[employer]IED [employer] SYSTEMS TECHNICIAN and reported to have a strong swallow. 4) Supportive care per primary team. Thank you for allowing us to participate in the care of this patient. If you should have any further questions or concerns, do not hesitate to contact us. Agree with FRANC Paige as above Abd: Soft, NT, ND, +BS Barium swallow in the AM for further evaluation Continue Protonix 40mg by mouth daily Continue supportive care.
[2017-07-04] MEDS ORDERED: WARFARIN SOD 4 MG TAB PO SCH (16:00)
[2017-07-04] MEDS ORDERED: FUROSEMIDE 80 MG TAB PO SCH (17:00)
[2017-07-04] MEDS ORDERED: DOXYCYCLINE IV 100 MG in DEXTROSE 5% 100ML 100 ML IV SCH (21:00)
[2017-07-05] VITALS (19 sets, daily range): BP systolic 76–170; BP diastolic 36–111; PULSE 80–112; TEMP 36.4–36.8; O2SAT 90–99
[2017-07-05] MEDS: LEVALBUTEROL 1.25MG/0.5ML NEB INH SCH ×4 (01:44→18:58)
[2017-07-05] MEDS: IPRATROPIUM BROMIDE NEB SOLN 0.02% 2.5 ML VIAL INH SCH ×4 (01:44→18:58)
[2017-07-05] MEDS: LEVOTHYROXINE 112 MCG TAB PO SCH (06:00)
[2017-07-05 06:02] LABS: INR 2.9 (0.9-1.1); PROTHROMBIN TIME (PATIENT) 32.8 SECONDS (9.0-12.0)
[2017-07-05 06:21] LABS: BUN/CREATININE RATIO 34.2 (10-20); CALCIUM 9.2 mg/dl (8.5-10.1); CREATININE 2.1 mg/dl (0.60-1.20); POTASSIUM 4.2 mmol/L (3.5-5.1)
[2017-07-05] MEDS: INSULIN ASPART 100 UNITS/ML 3 ML PEN SC SCH ×4 (07:00→20:30)
[2017-07-05 08:24] LABS: MEAN CORPUSCULAR HGB CONC 31.9 g/dl (32-36)
[2017-07-05 08:27] LABS: CKMB/CK RATIO 1.5 (0-3.0)
[2017-07-05] MEDS ORDERED: LEVOFLOXACIN CONSULT ACTIVE PRN (08:30)
--- NOTE | 2017-07-05 08:33 | Progress Note ---
Medicine Progress Note Date & Time of Visit: Jul 05, 2017 at 08:13. Subjective called by RN as patient was reporting chest pain that started around 4am - central chest pain radiating to bilateral jaws EKG showing atrial flutter, rate controlled BP noted to be systolic 160s (+) wheezing on exam patient seen and examined at bedside, son Jeff present patient resting in bed, appears tired but pleasant, not in respiratory distress states chest pain is 1-2/10, substernal radiating to her jaw- like a toothache, denies dizziness/nausea/diaphoresis/headache states breathing is ok, about the same as yesterday, still has dry cough no other symptoms Objective Last 8 Hrs Date Time Temp Pulse Resp B/P (MAP) Pulse Ox O2 Delivery O2 Flow Rate FiO2 07/05/17 08:05 96 18 90 Room Air 07/05/17 08:00 98 94/63 (73) 07/05/17 06:43 81 16 92 Room Air 07/05/17 04:00 Nasal Cannula 3.0 07/05/17 03:49 36.8 87 20 106/62 (77) 92 Nasal Cannula 3.0 07/05/17 00:23 36.8 90 21 114/60 (78) 93 Nasal Cannula 3.0 Physical Exam: General- oriented x 3, not in distress, speaks in sentences with no effort Eyes- anicteric ENT- oropharynx clear Neck- supple, no JVD Lungs- (+) moderate scattered wheeze bilaterally, no rales Heart-normal rate, irregularly irregular rhythm, no murmurs Abdomen- normal bowel sounds, soft, nontender Extremities- (+) mild edema of the bilateral lower legs, mild warmth, no tenderness Neuro- alert, oriented x 3; PERRL, EOMI; no facial palsy; no dysarthria; motor 5 /5 bilaterally; sensation: normal except mild decreased sensation digit 4 and 5 right hand Skin- warm & dry Laboratory Results: Last 24 Hours Test 07/04/17 11:26 07/04/17 16:34 07/04/17 20:28 07/05/17 05:25 Bedside Glucose 177 mg/dl 96 mg/dl 119 mg/dl Prothrombin Time 32.8 SECONDS Prothromb Time International Ratio 2.9 Sodium Level 138 mmol/L Potassium Level 4.2 mmol/L Chloride Level 97 mmol/L Carbon Dioxide Level 31 mmol/L Anion Gap 10.0 mmol/L Blood Urea Nitrogen 72 mg/dl Creatinine 2.10 mg/dl Est Creatinine Clear Calc Drug Dose 33.4 ml/min Estimated GFR () 26.4 Estimated GFR (Non- 22.8 BUN/Creatinine Ratio 34.2 Random Glucose 116 mg/dl Calcium Level 9.2 mg/dl Test 07/05/17 06:41 07/05/17 07:46 07/05/17 08:10 Bedside Glucose 113 mg/dl Creatine Kinase MB Ratio Date/Time Source Procedure Growth Status 07/04/17 20:00 Sputum Expectorated Sputum Gram Stain Pending Received 07/04/17 20:00 Sputum Expectorated Sputum Sputum Culture Pending Received Assessment & Plan 72 / F with history of Chronic Respiratory Failure on home O2, CAD/CABG, HTN, CKD 3, ACUTE ON CHRONIC HYPOXIC RESPIRATORY FAILURE LIKELY FROM COPD EXACERBATION FROM ACUTE BRONCHITIS, POSSIBLE BILATERAL LOWER LOBE PNEUMONIA VS. ASPIRATION - (+) increased wheezing today repeat CXR today change Prednisone to Solumedrol 40mg q8h change Doxy to Levaquin daily continue Levalbuterol/Ipratropium q4h and PRN continue Dulera and Tudorza will consult Pulmonary ACUTE ON CHRONIC DIASTOLIC CHF EXACERBATION ? - CXR no pulmonary edema BNP normal - (+) leg edema Nephro consulted on Lasix 80mg IV, diuresing well, -2 liters so far appreciate Nephro consult CHEST PAIN, ANGINA FROM HTN URGENCY? HISTORY OF CAD/CABG/STENT - EKG a flutter rate controlled cardiac markers pending - ECHO: Normal LV chamber size with mild concentric LVH. * Normal LV systolic function, abnormal septal wall motion consistent with post-operative state, EF 55-60%. * Grade I diastolic dysfunction. * A bicuspid aortic valve cannot be excluded. Mildly calcified. Trace aortic regurgitation. No hemodynamically significant valvular aortic stenosis. -- resolved with 1 nitro already on Coumadin INR 2.9, Aspirin, Statin -- from HTN urgency secondary to COPD exacerbation? BP 160s --> 90s, chest pain resolved -- Cardiology consulted PARESTHESIAS, DIGIT4 AND 5, RIGHT - likely Ulnar Nerve unvolvement - may need EMG as outpatient LEFT LOWER EXTREMITY EDEMA - chronic as per patient increased lately - Doppler US: negative - management as noted above - component of Cellulitis? Doxycycline Day 2 CAD/CABG A FIB/A FLUTTER -- management as noted above Hypertension - continue Metoprolol, usually on 37.5mg po daily, now on 25mg BID CKD 3 - records requested from PCP - baseline crea 0.68 per outside records monitor crea while on Lasix Breast cancer, left, status post surgery, radiation, ongoing hormone therapy. Ongoing tobacco abuse. - Nicotine Patch JONATHON - CPAP DVT proph Coumadin INR 2.9 Dispo pending lives at home with daughter anticipate d/c home when medically stable, PT OT ordered Current Inpatient Medications: Current Inpatient Medications Medications (Trade) Dose Ordered Sig/Isidoro Route Start Time Stop Time Status Last Admin Dose Admin Insulin Glargine (Lantus Solostar Pen) 5 units DAILY SC 07/05/17 09:00 08/04/17 08:59 Acetaminophen (Tylenol Tab) 650 mg Q4H PRN PO 07/04/17 00:45 08/03/17 00:44 Nitroglycerin (Nitrostat Tab) 0.4 mg UD PRN SL 07/04/17 00:45 08/03/17 00:44 07/05/17 07:58 0.4 MG Insulin Aspart (novoLOG ASPART) SLIDING SCALE If C... ACHS SC 07/04/17 07:00 08/03/17 06:59 07/04/17 12:14 3 UNITS Glucose (Glucose 40% Gel) 15-30 GRAMS 15 GRAMS... UD PRN PO 07/04/17 00:45 08/03/17 00:44 Glucose (Glucose Chew Tab) 4-8 Tablets 4 Tabl... UD PRN PO 07/04/17 00:45 08/03/17 00:44 Dextrose (Dextrose 50% 50ML Syringe) 25-50ML OF 50% DW IV FOR... UD PRN IV 07/04/17 00:45 08/03/17 00:44 Glucagon (Glucagon Inj) 1 mg UD PRN SQ 07/04/17 00:45 08/03/17 00:44 Anastrozole (Arimidex Tab) 1 mg DAILY PO 07/04/17 09:00 08/03/17 08:59 07/04/17 08:06 1 MG Docusate Sodium (coLACE CAP) 100 mg DAILY PO 07/04/17 09:00 08/03/17 08:59 07/04/17 08:07 100 MG Levothyroxine Sodium (Synthroid Tab) 112 mcg DAILYBB PO 07/04/17 06:00 08/03/17 06:59 07/04/17 05:33 112 MCG Pantoprazole Sodium (Protonix Tab) 40 mg DAILY PO 07/04/17 09:00 08/03/17 08:59 07/04/17 08:06 40 MG Potassium Chloride (Klor-Con Tab) 20 meq TID PO 07/04/17 09:00 08/03/17 08:59 07/04/17 20:37 20 MEQ Pregabalin (Lyrica Cap) 150 mg TID PO 07/04/17 09:00 08/03/17 08:59 07/04/17 20:36 150 MG Rosuvastatin Calcium (Crestor Tab) 10 mg DAILY PO 07/04/17 09:00 08/03/17 08:59 07/04/17 08:03 10 MG Sertraline HCl (Zoloft Tab) 150 mg DAILY PO 07/04/17 09:00 08/03/17 08:59 07/04/17 08:07 150 MG Febuxostat (Uloric) 40 mg DAILY PO 07/04/17 09:00 08/03/17 08:59 07/04/17 08:08 40 MG Aspirin (Ecotrin Tab) 81 mg QAM PO 07/04/17 09:00 08/03/17 08:59 07/04/17 08:07 81 MG Tramadol HCl (Ultram Tab) not relieved by tylenol @ Q6H PRN PO 07/04/17 01:15 08/03/17 01:14 Hydromorphone HCl (Dilaudid Inj) 0.5 mg Q3H PRN IV 07/04/17 01:15 07/18/17 01:14 Ondansetron HCl (Zofran Inj) 4 mg Q6H PRN IV 07/04/17 01:15 08/03/17 01:14 Nicotine (Nicoderm Cq 21MG Patch) 1 patch QAM TD 07/04/17 09:00 08/03/17 08:59 07/04/17 08:10 1 PATCH Miscellaneous (Remove Nicoderm Patch) 1 ea HS N/A 07/04/17 21:00 08/03/17 20:59 07/04/17 20:37 1 EA Ipratropium [place] (Atrovent 0.02% 0.5MG/2.5ML Neb) 0.5 mg Q6R INH 07/04/17 03:00 08/03/17 02:59 07/05/17 06:43 0.5 MG Levalbuterol (Xopenex 1.25MG/ 0.5ML Neb) 1.25 mg Q6R INH 07/04/17 03:00 08/03/17 02:59 07/05/17 06:43 1.25 MG Ipratropium [place] (Atrovent 0.02% 0.5MG/2.5ML Neb) 0.5 mg Q4H PRN INH 07/04/17 01:30 08/03/17 01:29 07/05/17 08:05 0.5 MG Levalbuterol (Xopenex 1.25MG/ 0.5ML Neb) 1.25 mg Q4H PRN INH 07/04/17 01:30 08/03/17 01:29 07/05/17 08:05 1.25 MG Metoprolol Tartrate (Lopressor Tab) 25 mg BID PO 07/04/17 09:00 08/03/17 08:59 07/04/17 20:36 25 MG Warfarin Sodium (Coumadin Tab) 8 mg DAILY@16 PO 07/04/17 16:00 08/03/17 15:59 07/04/17 16:55 8 MG Furosemide 80 mg/ Syringe 8 ml @ 4 mls/min BID17 IV 07/04/17 17:00 08/03/17 16:59 07/04/17 16:54 4 MLS/MIN Methylprednisolone Sodium Succinate 40 mg/Syringe 0.64 ml @ 1.5 mls/min Q8H IV 07/05/17 08:15 08/04/17 08:14 Miscellaneous Information (Pharmacy Consult) 1 ea NOW STAT N/A 07/05/17 08:08 07/05/17 08:09 UNV
--- NOTE | 2017-07-05 08:41 | DIAGNOSTIC IMAGING REPORT ---
CHEST ONE VIEW PORTABLE CLINICAL HISTORY: r/o pneumonia pneumonia COMPARISON STUDY: 07/03/2017 FINDINGS: Moderate cardiomegaly. Tortuous thoracic aorta. Prior median sternotomy. Diaphragms are smooth. Slight increase in prominence of pulmonary vasculature. IMPRESSION: Mild congestive failure. Radiographic findings are slightly progressive from the prior study. The above report was generated using voice recognition software. It may contain grammatical, syntax or spelling errors. Electronically signed by: Tony Butts M.D. 07/05/2017 8:39 AM Dictated Date/Time: 07/05/2017 8:39 AM
[2017-07-05] MEDS: DOCUSATE SODIUM 100 MG CAP PO SCH (08:57)
[2017-07-05] MEDS: ASPIRIN 81 MG ECTAB PO SCH (08:57)
[2017-07-05] MEDS: SERTRALINE HCL 100 MG TAB PO SCH (08:57)
[2017-07-05] MEDS: PANTOprazole SOD 40 MG TAB PO SCH (08:58)
[2017-07-05] MEDS: ROSUVASTATIN CALCIUM 10 MG TAB PO SCH (08:58)
[2017-07-05] MEDS: NICOTINE 21 MG/24 HR TDSY TD SCH (08:58)
[2017-07-05] MEDS: FEBUXOSTAT 40 MG TAB PO SCH (08:58)
[2017-07-05] MEDS: POTASSIUM CHLORIDE 20 MEQ TABCR PO SCH ×3 (08:59→21:03)
[2017-07-05] MEDS ORDERED: DOXYCYCLINE HYCLATE 100 MG CAP PO SCH (09:00)
[2017-07-05] MEDS ORDERED: [UNRECOGNIZED DRUG - OTHER] PRN (09:00)
[2017-07-05] MEDS: ANASTROZOLE 1 MG TAB PO SCH (09:01)
[2017-07-05] MEDS: METHYLPREDNISOLONE IV 40 MG in SYRINGE 0 ML IV SCH ×2 (09:02→16:29)
[2017-07-05] MEDS: INSULIN GLARGINE SOLOSTAR 100 UNITS/ML 3 ML PEN SC SCH (09:02)
[2017-07-05] MEDS: PREGABALIN 150 MG CAP PO SCH ×2 (09:02→21:03)
--- NOTE | 2017-07-05 09:08 | Gastroenterology Progress Note ---
Progress Note Date of Service: Jul 05, 2017 Subjective Pt evaluation today including: conversation w/ patient, physical exam, lab review, review of studies Patient is a 72 yo female hospitalized with multiple medical issues. GI is following for possible dysphagia. The patient is awaiting a barium swallow. She is tired this morning as it is early. She denies abdominal pain, nausea, vomiting, diarrhea, or constipation. She denies any further complaints at present. Review of Systems Constitutional: No problem reported ENT: No problem reported Respiratory: + cough, + dyspnea on exertion, No shortness of breath Cardiac: No chest pain Abdomen: + dysphagia, No pain, No nausea, No vomiting, No diarrhea Musculoskeletal: No joint pain Medications Current Inpatient Medications Medications (Trade) Dose Ordered Sig/Isidoro Route Start Time Stop Time Status Last Admin Dose Admin Insulin Glargine (Lantus Solostar Pen) 5 units DAILY SC 07/05/17 09:00 08/04/17 08:59 07/05/17 09:02 5 UNITS Acetaminophen (Tylenol Tab) 650 mg Q4H PRN PO 07/04/17 00:45 08/03/17 00:44 Nitroglycerin (Nitrostat Tab) 0.4 mg UD PRN SL 07/04/17 00:45 08/03/17 00:44 07/05/17 07:58 0.4 MG Insulin Aspart (novoLOG ASPART) SLIDING SCALE If C... ACHS SC 07/04/17 07:00 08/03/17 06:59 07/04/17 12:14 3 UNITS Glucose (Glucose 40% Gel) 15-30 GRAMS 15 GRAMS... UD PRN PO 07/04/17 00:45 08/03/17 00:44 Glucose (Glucose Chew Tab) 4-8 Tablets 4 Tabl... UD PRN PO 07/04/17 00:45 08/03/17 00:44 Dextrose (Dextrose 50% 50ML Syringe) 25-50ML OF 50% DW IV FOR... UD PRN IV 07/04/17 00:45 08/03/17 00:44 Glucagon (Glucagon Inj) 1 mg UD PRN SQ 07/04/17 00:45 08/03/17 00:44 Anastrozole (Arimidex Tab) 1 mg DAILY PO 07/04/17 09:00 08/03/17 08:59 07/05/17 09:01 1 MG Docusate Sodium (coLACE CAP) 100 mg DAILY PO 07/04/17 09:00 08/03/17 08:59 07/05/17 08:57 100 MG Levothyroxine Sodium (Synthroid Tab) 112 mcg DAILYBB PO 07/04/17 06:00 08/03/17 06:59 07/04/17 05:33 112 MCG Pantoprazole Sodium (Protonix Tab) 40 mg DAILY PO 07/04/17 09:00 08/03/17 08:59 07/05/17 08:58 40 MG Potassium Chloride (Klor-Con Tab) 20 meq TID PO 07/04/17 09:00 08/03/17 08:59 07/05/17 08:59 20 MEQ Pregabalin (Lyrica Cap) 150 mg TID PO 07/04/17 09:00 08/03/17 08:59 07/05/17 09:02 150 MG Rosuvastatin Calcium (Crestor Tab) 10 mg DAILY PO 07/04/17 09:00 08/03/17 08:59 07/05/17 08:58 10 MG Sertraline HCl (Zoloft Tab) 150 mg DAILY PO 07/04/17 09:00 08/03/17 08:59 07/05/17 08:57 150 MG Febuxostat (Uloric) 40 mg DAILY PO 07/04/17 09:00 08/03/17 08:59 07/05/17 08:58 40 MG Aspirin (Ecotrin Tab) 81 mg QAM PO 07/04/17 09:00 08/03/17 08:59 07/05/17 08:57 81 MG Tramadol HCl (Ultram Tab) not relieved by tylenol @ Q6H PRN PO 07/04/17 01:15 08/03/17 01:14 Hydromorphone HCl (Dilaudid Inj) 0.5 mg Q3H PRN IV 07/04/17 01:15 07/18/17 01:14 Ondansetron HCl (Zofran Inj) 4 mg Q6H PRN IV 07/04/17 01:15 08/03/17 01:14 Nicotine (Nicoderm Cq 21MG Patch) 1 patch QAM TD 07/04/17 09:00 08/03/17 08:59 07/04/17 08:10 1 PATCH Miscellaneous (Remove Nicoderm Patch) 1 ea HS N/A 07/04/17 21:00 08/03/17 20:59 07/04/17 20:37 1 EA Ipratropium [place] (Atrovent 0.02% 0.5MG/2.5ML Neb) 0.5 mg Q6R INH 07/04/17 03:00 08/03/17 02:59 07/05/17 06:43 0.5 MG Levalbuterol (Xopenex 1.25MG/ 0.5ML Neb) 1.25 mg Q6R INH 07/04/17 03:00 08/03/17 02:59 07/05/17 06:43 1.25 MG Ipratropium [place] (Atrovent 0.02% 0.5MG/2.5ML Neb) 0.5 mg Q4H PRN INH 07/04/17 01:30 08/03/17 01:29 07/05/17 08:05 0.5 MG Levalbuterol (Xopenex 1.25MG/ 0.5ML Neb) 1.25 mg Q4H PRN INH 07/04/17 01:30 08/03/17 01:29 07/05/17 08:05 1.25 MG Metoprolol Tartrate (Lopressor Tab) 25 mg BID PO 07/04/17 09:00 08/03/17 08:59 07/04/17 20:36 25 MG Furosemide 80 mg/ Syringe 8 ml @ 4 mls/min BID17 IV 07/04/17 17:00 08/03/17 16:59 07/04/17 16:54 4 MLS/MIN Methylprednisolone Sodium Succinate 40 mg/Syringe 0.64 ml @ 1.5 mls/min Q8H IV 07/05/17 08:15 08/04/17 08:14 07/05/17 09:02 1.5 MLS/MIN Levofloxacin (Consult) 1 ea UD PRN N/A 07/05/17 08:30 08/04/17 08:29 Warfarin Sodium (Coumadin Tab) 6 mg DAILY@16 PO 07/05/17 16:00 08/03/17 15:59 Levofloxacin 750 mg/Prmx 150 ml @ 100 mls/hr Q48H IV 07/05/17 10:00 07/12/17 09:59 Miscellaneous Information (Order Awaiting Action) 1 ea QS N/A 07/05/17 16:00 08/04/17 15:59 Miscellaneous Information (Order Awaiting Action) 1 ea QS N/A 07/05/17 16:00 08/04/17 15:59 Miscellaneous Information (Pharmacy Consult) 1 ea UD PRN N/A 07/05/17 09:00 08/04/17 08:59 Doxycycline Hyclate (Vibramycin Cap) 100 mg BID PO 07/05/17 09:00 07/14/17 08:59 Objective Vital Signs Date Time Temp Pulse Resp B/P (MAP) Pulse Ox O2 Delivery O2 Flow Rate FiO2 07/05/17 09:03 108 76/36 (49) 07/05/17 08:51 107 80/52 (61) 07/05/17 08:05 96 18 90 Room Air 07/05/17 08:00 98 94/63 (73) 07/05/17 07:18 36.5 80 20 170/111 (130) 94 Nasal Cannula 3.0 161/85 (110) 07/05/17 06:43 81 16 92 Room Air 07/05/17 04:00 Nasal Cannula 3.0 07/05/17 03:49 36.8 87 20 106/62 (77) 92 Nasal Cannula 3.0 07/05/17 00:23 36.8 90 21 114/60 (78) 93 Nasal Cannula 3.0 07/05/17 00:00 Nasal Cannula 3.0 07/04/17 20:00 Nasal Cannula 3.0 07/04/17 19:43 36.5 84 16 112/76 (88) 95 07/04/17 19:06 85 16 86 Room Air 07/04/17 16:00 Nasal Cannula 3.0 07/04/17 15:59 36.8 81 18 139/60 (86) 98 07/04/17 15:24 82 16 93 Nasal Cannula 3.0 07/04/17 12:23 36.6 90 16 103/66 (78) 90 3.0 07/04/17 12:00 Nasal Cannula 3.0 Physical Exam General Appearance: WD/WN, no apparent distress Eyes: normal inspection, PERRL Respiratory/Chest: + decreased breath sounds Cardiovascular: + irregularly irregular Abdomen: normal bowel sounds, non tender, soft Extremities: non-tender Neurologic/Psych: alert, oriented x 3 Skin: normal color Laboratory Results Last 24 Hours Test 07/04/17 11:26 07/04/17 16:34 07/04/17 20:28 07/05/17 05:25 Bedside Glucose 177 mg/dl 96 mg/dl 119 mg/dl Mean Corpuscular Hemoglobin Concent 31.9 g/dl Prothrombin Time 32.8 SECONDS Prothromb Time International Ratio 2.9 Sodium Level 138 mmol/L Potassium Level 4.2 mmol/L Chloride Level 97 mmol/L Carbon Dioxide Level 31 mmol/L Anion Gap 10.0 mmol/L Blood Urea Nitrogen 72 mg/dl Creatinine 2.10 mg/dl Est Creatinine Clear Calc Drug Dose 33.4 ml/min Estimated GFR () 26.4 Estimated GFR (Non- 22.8 BUN/Creatinine Ratio 34.2 Random Glucose 116 mg/dl Calcium Level 9.2 mg/dl Total Creatine Kinase 88 U/L Creatine Kinase MB 1.3 ng/ml Creatine Kinase MB Ratio 1.5 Troponin I < 0.015 ng/ml Test 07/05/17 06:41 Bedside Glucose 113 mg/dl Assessment and Plan Patient is a 72 yo female with reports of dysphagia/choking after eating & coughing. 1) Await results of barium swallow. 2) Protonix 40 mg daily. 3) Supportive care per primary team. Thank you for allowing us to participate in the care of this patient. If you should have any further questions or concerns, do not hesitate to contact us. Agree with FRANC Paige as above Abd: Soft, NT, ND, +BS Continue current therapy Barium swallow pending
[2017-07-05] MEDS ORDERED: SODIUM CHLORIDE 0.9% 250ML 250 ML IV SCH (09:15)
[2017-07-05 09:39] LABS: MEAN CELL VOLUME 79.1 fL (80-100); MEAN CORPUSCULAR HEMOGLOBIN 25.3 pg (25-34); RED BLOOD COUNT 5.94 M/uL (4.2-5.4); WHITE BLOOD COUNT 11.62 K/uL (4.8-10.8)
[2017-07-05] MEDS: LEVOFLOXACIN 750MG / D5W IV SCH (09:44)
[2017-07-05 10:02] LABS: BASO % 0.2 %; BASO ABS # 0.02 K/uL (0-0.2); COMPLETE YES; EOS % 0.4 %; IG% 0.3 %; LYMPH % 18.1 %; MONO % 10.3 %; NEUT % 70.7 %; PLATELET COUNT 128 K/uL (130-400)
--- NOTE | 2017-07-05 10:36 | Cardiology Consultation ---
Cardiology Consultation Date of Consultation: Jul 05, 2017 Requesting Physician: Edy Attending Maintenance Planner: Jesu (Tony Voss PA-C) History of Present Illness Ms. Rojas is a pleasant 72 year old female who is being seen at the request of Dr. Snow. Reason for consultation is chest discomfort. Ms. Rojas was admitted to [facility] through the Emergency Room after presenting late in the day on July 03, 2017 with complaints of acute on chronic dyspnea as well as acute on chronic lower extremity peripheral edema. Her daughter, who is present at the bedside and is the patient's primary caregiver, notes that her volume is typically controlled on furosemide 80 mg twice a day along with spironolactone 25 mg/day and as needed Metolazone. She notes that she was unable to control the fluid despite the above diuretic regimen thus she presented to the ER. Weight is up approximately 10 pounds per report. Last night around 4 AM the patient developed substernal chest discomfort with radiation to the bilateral jaw. The discomfort felt like a bad toothache. EKG obtained at that time revealed atrial flutter with variable A-V block ~[address] segment changes observed. Troponin x 2 negative prior to the episode of chest discomfort. A third tronopin about 1.5 hours after the episode of chest discomfort this morning was negative. Resting echocardiography yesterday revealed normal systolic function with abnormal septal wall motion consistent with post-operative state. EF 55-60%. Chest x-ray this morning, interpreted by the radiologist, revealed mild congestive failure. The patient notes chronic angina pectoris, typically occurring about once per month, aided by one or two sublingual nitroglycerin sprays. Her outpatient Maintenance Planner is Dr. Fernandez in [place], [place]. She denies recent changes to her medications. No recent illness. Atrial flutter with variable block noted on presentation and throughout her hospitalization; heart rates ranging from 70 bpm to 130 bpm. Chronicity of the atrial flutter is unknown with patient's daughter reporting her last EKG by Dr. Fernandez, recently was "OK." (Tony Voss PA-C) Past Medical/Surgical History Problem List: ASCVD Status post multiple PCI's by Dr. London and most recently Dr. Merlos in [place]. Details unknown. Status post CABG x 3 in 2010, Josse Shukla. 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 Obesity Obstructive sleep apnea, CPAP therapy (nasal pillows) Hypothyroidism Gout Chart history of polycythemia rubra vera Carpal tunnel syndrome Colonic polyps Depression Hemorrhoids Osteoarthritis Hysterectomy Lumbar spine surgery x 3. L4-L5 Disectomy with fusion on chart review Bilateral ankle surgeries, right ankel fracture requiring surgery with plates and screws per chart review (Tony Voss PA-C) Family History Mother at 60 with an PR. Father around 70 with colorectal cancer. Brother with lung cancer; he also had CAD. One sister is alive and well (Tony Voss PA-C) Patient reports no known family medical history. (Costa Nails, Soniya.Julio.) Social History Smoker. Currently 1 ppd. She has smoked up to 2 ppd since the age of 17. Rare alcohol. She denies illegal drug use. . Lives in [place] with her daughter. 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 (Tony Voss PA-C) Review Of Systems General: 10 lb weight gain. No fever or chills. HEENT: No headache. Cardiovascular: See above. Pulmonary: See above. No hemoptysis. Gastrointestinal: No nausea, vomiting, diarrhea, or constipation. Denies melena or hematochezia. Musculoskeletal: Chronic back pain. Bilateral leg pain. Foot drop. Neurological: No history of TIA, CVA, or seizures Complete review of systems is as stated above, negative, or noncontributory. (Tony Voss PA-C) Allergies Coded Allergies: Melatonin (Verified Allergy, Severe, RASH, 07/03/17) Penicillins (Verified Allergy, Unknown, UNLNOWN, 01/20/16) Medications Reported Home Medications Medications Dose Route/Sig Max Daily Dose Days Date Category Dulera 100/5 Mcg (Mometasone Furoate-Formoterol) 1 Aer Aer 1 Aer INH BID 07/03/17 Reported Tudorza Pressair (Aclidinium [place]) 400 Mcg/Act Aer INH UD 07/03/17 Reported Jantoven (Warfarin Sodium) 4 Mg Tab 2 Tabs PO DAILY 07/03/17 Reported Rosuvastatin Calcium 10 Mg Tab 10 Mg PO DAILY 07/03/17 Reported Arimidex (Anastrozole) 1 Mg Tab 1 Mg PO DAILY 07/03/17 Reported Caltrate 600 Plus (Calcium Carbonate-Vitamin D W/) 1 Tab Tab 1 Tab PO DAILY 07/03/17 Reported Klor-Con (Potassium Chloride) 20 Meq Tabcr 20 Meq PO TID 01/20/16 Reported Protonix (Pantoprazole Sodium) 40 Mg Tab 40 Mg PO DAILY 01/20/16 Reported Mag-Ox (Magnesium Oxide) 400 Mg Tab 400 Mg PO DAILY 01/20/16 Reported Uloric (Febuxostat) 40 Mg Tab 1 Tab PO DAILY 30 01/20/16 Reported Aldactone (Spironolactone) 25 Mg Tab 25 Mg PO DAILY 01/20/16 Reported Synthroid (Levothyroxine Sodium) 112 Mcg Tab 112 Mcg PO DAILY 01/20/16 Reported Docusate Sodium 100 Mg Cap 1 Cap PO DAILY 7 01/20/16 Reported Lyrica (Pregabalin) 150 Mg Cap 150 Mg PO TID 01/20/16 Reported Lasix (Furosemide) 80 Mg Tab 80 Mg PO BID 01/20/16 Reported Lopressor (Metoprolol Tartrate) 25 Mg Tab 37.5 Mg PO QAM 01/20/16 Reported Zoloft (Sertraline HCl) 100 Mg Tab 150 Mg PO DAILY 01/20/16 Reported (Tony Voss PA-C) Physical Exam Vital Signs (Last 8hrs): Last 8 Hrs Date Time Temp Pulse Resp B/P (MAP) Pulse Ox O2 Delivery O2 Flow Rate FiO2 07/05/17 09:10 112 18 93/64 (74) 93 Nasal Cannula 3.0 07/05/17 09:03 108 76/36 (49) 07/05/17 08:51 107 80/52 (61) 07/05/17 08:05 96 18 90 Room Air 07/05/17 08:00 98 94/63 (73) 07/05/17 07:18 36.5 80 20 170/111 (130) 94 Nasal Cannula 3.0 161/85 (110) 07/05/17 06:43 81 16 92 Room Air 07/05/17 04:00 Nasal Cannula 3.0 07/05/17 03:49 36.8 87 20 106/62 (77) 92 Nasal Cannula 3.0 General: Alert and Oriented x3. NAD. Elevated BMI HEENT: There is a lesion on the top of her head that is highly suspicious for basal cell carcinoma. PER. EOMI. Conjunctiva and sclera clear Neck: Bilateral carotid bruits. I could not appreciate any JVD. Neck veins appear flat. Respiratory: Decreased. Diminished throughout. + Wheezing. ? Right basilar rales. No rhonchi. Cardiovascular: Very distant heart sounds. Irregular. I could not appreciate a murmur. No overt rub. PMI was never found. Abdomen: Markedly obese. +BS. No abdominal bruits. Soft. Nontender. Extremities: Minimal edema. No clubbing. No cyanosis. No distal pulses appreciated. No ischemia lesions or ulcerations. Neuro: No focal deficits. Psychiatric: Somewhat of a flat affect. (Tony Voss, CRISTOPHER) Data Last 24 Hours Test 07/04/17 11:26 07/04/17 16:34 07/04/17 20:28 07/05/17 05:25 Bedside Glucose 177 mg/dl 96 mg/dl 119 mg/dl White Blood Count 11.62 K/uL Red Blood Count 5.94 M/uL Hemoglobin 15.0 g/dL Hematocrit 47.0 % Mean Corpuscular Volume 79.1 fL Mean Corpuscular Hemoglobin 25.3 pg Mean Corpuscular Hemoglobin Concent 31.9 g/dl RDW Standard Deviation 54.8 fL RDW Coefficient of Variation 19.4 % Prothrombin Time 32.8 SECONDS Prothromb Time International Ratio 2.9 Sodium Level 138 mmol/L Potassium Level 4.2 mmol/L Chloride Level 97 mmol/L Carbon Dioxide Level 31 mmol/L Anion Gap 10.0 mmol/L Blood Urea Nitrogen 72 mg/dl Creatinine 2.10 mg/dl Est Creatinine Clear Calc Drug Dose 33.4 ml/min Estimated GFR () 26.4 Estimated GFR (Non- 22.8 BUN/Creatinine Ratio 34.2 Random Glucose 116 mg/dl Calcium Level 9.2 mg/dl Total Creatine Kinase 88 U/L Creatine Kinase MB 1.3 ng/ml Creatine Kinase MB Ratio 1.5 Troponin I < 0.015 ng/ml Test 07/05/17 06:41 Bedside Glucose 113 mg/dl Chest x-ray: see above. EKG dated and timed 03-JUL-2017 @ 20:54:17: Atrial flutter with 3:1 A-V conduction ([address] bpm). [address] abnormality. EKG dated and timed 04-JUL-2017 @ 09:30:49: Atrial flutter with variable A-V block (88 bpm). Nonspecific ST abnormality. EKG dated and timed 05-JUL-2017 @ 07:31:20: Atrial flutter with variable A-V block (82 bpm). July 04, 2017 TTE Interpretation Summary ([facility], Dr. Costa Nails): Normal LV chamber size with mild concentric LVH. Normal LV systolic function, abnormal septal wall motion consistent with post-operative state, EF 55-60%. Grade I diastolic dysfunction. A bicuspid aortic valve cannot be excluded. Mildly calcified. Trace aortic regurgitation. No hemodynamically significant valvular aortic stenosis. Small, loculated anterior pericardial effusion. Stranding is present to suggest chronicity. Creatinine Clearance by Cockcroft-Gault Equation (F, 77, 2.10 mg/dL, 139.5 kg) is 52.54 mL/min Telemetry: Atrial flutter with variable block. Heart rates on her continuous monitoring manager since admission have ranged from a low of 70 bpm to 130 bpm. Rare ventricular couplet. (Tony Voss PA-C) Assessment & Plan Complex 72 year old female admitted with a working diagnosis of acute respiratory failure appearing to be secondary to acute decompensated right heart failure and a possible acute COPD exacerbation. Atrial flutter with variable block observed on admission and throughout her hospitalization; this is of unknown duration (if new, this may certainly account for her acute decompensation). The substernal chest discomfort episode early this morning is very consistent with angina and appears to be exacerbated by the acute decompensation of right heart failure as well as the COPD exacerbation. RECOMMENDATIONS/PLAN: Obtain records from Dr. Fernandez including his last couple office notes, last catheterization report, CABG report, and last few EKG's. If the atrial flutter is new I would recommend attempt(s) to restore sinus given her symptoms/decompensation. If the atrial flutter is longstanding/chronic, recommend rate control. Continue chronic Coumadin anticoagulation (multiple indications, benefits felt to be greater than the risks). She does not appear to be an optimal candidate for the use of a NOAC. Attempt titration of metoprolol to three times per day for now, as long as her blood pressure permits, for additional heart rate and angina control. I would recommend avoiding calcium channel miladys therapy in this patient. Discontinue IV furosemide Start oral Torsemide 40 mg twice a day in the morning of 07/06/2017 Add spironolactone 25 mg/day in the AM of 07/06/2017. Decrease Lyrica to twice a day due to the fluid retention and renal dysfunction Medical management of the CAD recommended and requested by the patient and her daughter CPAP and supplemental oxygen therapy. ? BiPAP Tobacco cessation. (Tony Voss PA-C) Cardiology attending: Pt seen and examined, agree with findings and assessment as per Tony Holdre. States that she's feeling well today. We will first attempt to determine chronicity of atrial flutter and her primary job interviewer's office will be contacted. Will uptitrate metoprolol for greater rate control but may ultimately benefit from rhythm control. Cont anticoagulation. Diuretics as above. (Cosat Nails D.O.)
--- NOTE | 2017-07-05 10:45 | Nephrology Progress Note ---
Nephrology Progress Note Date of Service Jul 05, 2017. Chief Complaint Evaluation of progressive edema in this patient w/ CKD Subjective Ms. Rojas was seen & examined in the PCU this morning. She responded well to IV Furosemide therapy and diuresed ~ 1 L overnight. Ms. Rojas remains dyspneic. She had an episode of chest discomfort overnight. Pulmonology and Cardiology consultations are currently pending. Review of Systems Constitutional: No fever Cardiovascular: No chest pain Respiratory: No dyspnea at rest Abdomen: No pain, No nausea, No vomiting Extremities: + leg edema A complete review of systems was performed. Pertinent positives are noted above. All other systems are negative. Vital Signs Last 8 Hrs Date Time Temp Pulse Resp B/P (MAP) Pulse Ox O2 Delivery O2 Flow Rate FiO2 07/05/17 09:45 87/71 (76) 07/05/17 09:10 112 18 93/64 (74) 93 Nasal Cannula 3.0 07/05/17 09:03 108 76/36 (49) 07/05/17 08:51 107 80/52 (61) 07/05/17 08:05 96 18 90 Room Air 07/05/17 08:00 98 94/63 (73) 07/05/17 07:18 36.5 80 20 170/111 (130) 94 Nasal Cannula 3.0 161/85 (110) 07/05/17 06:43 81 16 92 Room Air 07/05/17 04:00 Nasal Cannula 3.0 07/05/17 03:49 36.8 87 20 106/62 (77) 92 Nasal Cannula 3.0 Last Recorded Weight Weight (Kilograms): 139.500 Physical Exam General Appearance: no apparent distress, + obese Head: normocephalic, atraumatic Eyes: PERRL Neck: no adenopathy, + pertinent finding (short, thick, no LAD) Respiratory/Chest: + crackles (at bases w/ bilateral expiratory wheezing) Cardiovascular: regular rate, rhythm Abdomen/GI: normal bowel sounds, non tender, soft Extremities/Musculoskelatal: + pertinent finding (1+ pretibial pitting edema) Neurologic/Psych: alert, oriented x 3 Family History Patient reports no known family medical history. Negative for CKD/ESRD Social History . Lives in [place], [place]. 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 H/o tobacco use 1.5 ppd. Patient denies alcohol use. Laboratory Results Past 24 Hours 07/05/17 05:25 Red Blood Count 5.94, Mean Corpuscular Volume 79.1, Mean Corpuscular Hemoglobin 25.3, Mean Corpuscular Hemoglobin Concent 31.9, Neutrophils (%) (Auto) 70.7, Lymphocytes (%) (Auto) 18.1, Monocytes (%) (Auto) 10.3, Eosinophils (%) (Auto) 0.4, Basophils (%) (Auto) 0.2, Neutrophils # (Auto) 8.22, Lymphocytes # (Auto) 2.10, Monocytes # (Auto) 1.20, Eosinophils # (Auto) 0.05, Basophils # (Auto) 0.02 07/05/17 05:25 Test 07/04/17 11:26 07/04/17 16:34 07/04/17 20:28 07/05/17 05:25 Bedside Glucose 177 mg/dl (70-90) 96 mg/dl (70-90) 119 mg/dl (70-90) White Blood Count 11.62 K/uL (4.8-10.8) Red Blood Count 5.94 M/uL (4.2-5.4) Hemoglobin 15.0 g/dL (12.0-16.0) Hematocrit 47.0 % (37-47) Mean Corpuscular Volume 79.1 fL (80-100) Mean Corpuscular Hemoglobin 25.3 pg (25-34) Mean Corpuscular Hemoglobin Concent 31.9 g/dl (32-36) Platelet Count 128 K/uL (130-400) Neutrophils (%) (Auto) 70.7 % Lymphocytes (%) (Auto) 18.1 % Monocytes (%) (Auto) 10.3 % Eosinophils (%) (Auto) 0.4 % Basophils (%) (Auto) 0.2 % Neutrophils # (Auto) 8.22 K/uL (1.4-6.5) Lymphocytes # (Auto) 2.10 K/uL (1.2-3.4) Monocytes # (Auto) 1.20 K/uL (0.11-0.59) Eosinophils # (Auto) 0.05 K/uL (0-0.5) Basophils # (Auto) 0.02 K/uL (0-0.2) RDW Standard Deviation 54.8 fL (36.4-46.3) RDW Coefficient of Variation 19.4 % (11.5-14.5) Immature Granulocyte % (Auto) 0.3 % Immature Granulocyte # (Auto) 0.03 K/uL (0.00-0.02) Prothrombin Time 32.8 SECONDS (9.0-12.0) Prothromb Time International Ratio 2.9 (0.9-1.1) Anion Gap 10.0 mmol/L (3-11) Est Creatinine Clear Calc Drug Dose 33.4 ml/min Estimated GFR () 26.4 Estimated GFR (Non- 22.8 BUN/Creatinine Ratio 34.2 (10-20) Calcium Level 9.2 mg/dl (8.5-10.1) Total Creatine Kinase 88 U/L (26-192) Creatine Kinase MB 1.3 ng/ml (0.5-3.6) Creatine Kinase MB Ratio 1.5 (0-3.0) Troponin I < 0.015 ng/ml (0-0.045) Test 07/05/17 06:41 Bedside Glucose 113 mg/dl (70-90) Allergies Coded Allergies: Melatonin (Verified Allergy, Severe, RASH, 07/03/17) Penicillins (Verified Allergy, Unknown, UNLNOWN, 01/20/16) Medications Current Inpatient Medications Medications (Trade) Dose Ordered Sig/Isidoro Route Start Time Stop Time Status Last Admin Dose Admin Insulin Glargine (Lantus Solostar Pen) 5 units DAILY SC 07/05/17 09:00 08/04/17 08:59 07/05/17 09:02 5 UNITS Acetaminophen (Tylenol Tab) 650 mg Q4H PRN PO 07/04/17 00:45 08/03/17 00:44 Nitroglycerin (Nitrostat Tab) 0.4 mg UD PRN SL 07/04/17 00:45 08/03/17 00:44 07/05/17 07:58 0.4 MG Insulin Aspart (novoLOG ASPART) SLIDING SCALE If C... ACHS SC 07/04/17 07:00 08/03/17 06:59 07/04/17 12:14 3 UNITS Glucose (Glucose 40% Gel) 15-30 GRAMS 15 GRAMS... UD PRN PO 07/04/17 00:45 08/03/17 00:44 Glucose (Glucose Chew Tab) 4-8 Tablets 4 Tabl... UD PRN PO 07/04/17 00:45 08/03/17 00:44 Dextrose (Dextrose 50% 50ML Syringe) 25-50ML OF 50% DW IV FOR... UD PRN IV 07/04/17 00:45 08/03/17 00:44 Glucagon (Glucagon Inj) 1 mg UD PRN SQ 07/04/17 00:45 08/03/17 00:44 Anastrozole (Arimidex Tab) 1 mg DAILY PO 07/04/17 09:00 08/03/17 08:59 07/05/17 09:01 1 MG Docusate Sodium (coLACE CAP) 100 mg DAILY PO 07/04/17 09:00 08/03/17 08:59 07/05/17 08:57 100 MG Levothyroxine Sodium (Synthroid Tab) 112 mcg DAILYBB PO 07/04/17 06:00 08/03/17 06:59 07/04/17 05:33 112 MCG Pantoprazole Sodium (Protonix Tab) 40 mg DAILY PO 07/04/17 09:00 08/03/17 08:59 07/05/17 08:58 40 MG Potassium Chloride (Klor-Con Tab) 20 meq TID PO 07/04/17 09:00 08/03/17 08:59 07/05/17 08:59 20 MEQ Pregabalin (Lyrica Cap) 150 mg TID PO 07/04/17 09:00 08/03/17 08:59 07/05/17 09:02 150 MG Rosuvastatin Calcium (Crestor Tab) 10 mg DAILY PO 07/04/17 09:00 08/03/17 08:59 07/05/17 08:58 10 MG Sertraline HCl (Zoloft Tab) 150 mg DAILY PO 07/04/17 09:00 08/03/17 08:59 07/05/17 08:57 150 MG Febuxostat (Uloric) 40 mg DAILY PO 07/04/17 09:00 08/03/17 08:59 07/05/17 08:58 40 MG Aspirin (Ecotrin Tab) 81 mg QAM PO 07/04/17 09:00 08/03/17 08:59 07/05/17 08:57 81 MG Tramadol HCl (Ultram Tab) not relieved by tylenol @ Q6H PRN PO 07/04/17 01:15 08/03/17 01:14 Hydromorphone HCl (Dilaudid Inj) 0.5 mg Q3H PRN IV 07/04/17 01:15 07/18/17 01:14 Ondansetron HCl (Zofran Inj) 4 mg Q6H PRN IV 07/04/17 01:15 08/03/17 01:14 Nicotine (Nicoderm Cq 21MG Patch) 1 patch QAM TD 07/04/17 09:00 08/03/17 08:59 07/04/17 08:10 1 PATCH Miscellaneous (Remove Nicoderm Patch) 1 ea HS N/A 07/04/17 21:00 08/03/17 20:59 07/04/17 20:37 1 EA Ipratropium [place] (Atrovent 0.02% 0.5MG/2.5ML Neb) 0.5 mg Q6R INH 07/04/17 03:00 08/03/17 02:59 07/05/17 06:43 0.5 MG Levalbuterol (Xopenex 1.25MG/ 0.5ML Neb) 1.25 mg Q6R INH 07/04/17 03:00 08/03/17 02:59 07/05/17 06:43 1.25 MG Ipratropium [place] (Atrovent 0.02% 0.5MG/2.5ML Neb) 0.5 mg Q4H PRN INH 07/04/17 01:30 08/03/17 01:29 07/05/17 08:05 0.5 MG Levalbuterol (Xopenex 1.25MG/ 0.5ML Neb) 1.25 mg Q4H PRN INH 07/04/17 01:30 08/03/17 01:29 07/05/17 08:05 1.25 MG Metoprolol Tartrate (Lopressor Tab) 25 mg BID PO 07/04/17 09:00 08/03/17 08:59 07/04/17 20:36 25 MG Furosemide 80 mg/ Syringe 8 ml @ 4 mls/min BID17 IV 07/04/17 17:00 08/03/17 16:59 07/04/17 16:54 4 MLS/MIN Methylprednisolone Sodium Succinate 40 mg/Syringe 0.64 ml @ 1.5 mls/min Q8H IV 07/05/17 08:15 08/04/17 08:14 07/05/17 09:02 1.5 MLS/MIN Levofloxacin (Consult) 1 ea UD PRN N/A 07/05/17 08:30 08/04/17 08:29 Warfarin Sodium (Coumadin Tab) 6 mg DAILY@16 PO 07/05/17 16:00 08/03/17 15:59 Levofloxacin 750 mg/Prmx 150 ml @ 100 mls/hr Q48H IV 07/05/17 10:00 07/12/17 09:59 07/05/17 09:44 100 MLS/HR Miscellaneous Information (Order Awaiting Action) 1 ea QS N/A 07/05/17 16:00 08/04/17 15:59 Miscellaneous Information (Order Awaiting Action) 1 ea QS N/A 07/05/17 16:00 08/04/17 15:59 Clindamycin HCl (Cleocin Cap) 300 mg TID PO 07/05/17 14:00 07/12/17 13:59 UNV Impression (1) Diastolic CHF (2) Acute kidney injury (3) Chronic kidney disease (4) Volume overload (5) Diabetes Ms. Rojas was admitted to the hospital for evaluation of progressive LE edema, BAKER and LE cellulitis. She denies any change to her diet. She has been taking Furosemide 80 mg po bid and recently added PRN Zaroxolyn. Despite these changes her LE has worsened. Weight remains stable at 306 lbs. Echocardiogram reveals preserved LVEF 55 - 60% Recommendations PERIPHERAL EDEMA: -- Continue Furosemide 80 mg IV BID -- Monitor I&O's, daily weight -- Dietitian has provided patient education on 1500 mg / day sodium restricted diet -- Once edema has improved will consider oral Demadex due to improved bioavailability ACUTE KIDNEY INJURY: -- Baseline creatinine has been 1.4 - 1.8 depending upon volume status -- Urine sediment is bland, patient is not proteinuric -- No acute indication for renal US at this time -- Monitor PRP PULM: -- Wheezing bilaterally. Suspect element of RAD. Await Pulmonology input CV: -- No further chest pain. Await Cardiology input
--- NOTE | 2017-07-05 11:15 | Pulmonary Consultation ---
History General Date of Service: Jul 05, 2017. 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 The patient is a current smoke and has approximately a 55 pack year history. The patient presented to the ED with concerns of peripheral edema L>R and SOB worsening over the week prior to admission. The patient states that at home, she was previously on 2 L of O2 via nasal cannula, but over the past couple of weeks/months, increased to 3 L during the day due to increasing SOB. Increasing her O2 had previously helped her symptoms. She does also where CPAP at night. The patient and her daughter state that sometimes when she is eating/drinking she will choke/vomit. GI is following. Plan for barium swallow today to evaluate possible aspiration. The patient has noted wheezing at home. She has decreased appetite, but has had 10 lb weight gain over the 1 week [employer]. She is typically on PO Lasix 80 mg BID at home. She has noted worsening leg edema with pain/tightness prior to admission. This continues today. She did have B/L LE venous Doppler completed since admission which was negative for DVT. The patient was placed on IV Levaquin and Doxycycline upon admission along with IV SoluMedrol. Her home pulmonary meds include Tudorza and Dulera. She is currently on Atrovent & Xopenex. She is complaining of chornic cough that has worsened slightly. She is also producing yellow/thick sputum. Her last chest CT was completed in June last year at [facility]. Chest X-Ray on admission showed cardiomegaly, pulmonary vascular congestion, and bibasilar opacities with L > R. These images were viewed by me today. EKG showing Aflutter with variable AV block. Viewed. Labs reviewed on admission: WBC 10.52 Hgb 16.1 Troponin negative Creatinine 1.83 BUN 66 A1C 7.0 VBG: pH 7.32 pCO2 70 HCO3 35 The patient states that she has never had pulmonary function tests in the past that she knows of. Historian: patient, family Onset: last week Severity: moderate Complaint Status: persistent Review of Systems Constitutional: reports: weight gain, denies: chills, fever Eyes: denies: eye pain, blurred vision ENT: denies: loss of hearing Cardiovascular: reports: chest tightness, denies: chest pain, chest pressure Respiratory: reports: cough, shortness of breath, wheezing, sputum production, BAKER Gastrointestinal: reports: vomiting (after meals sometimes at home.), denies: abdominal pain, constipation Genitourinary - Female: denies: dysuria Musculoskeletal: reports: other (swelling b/l LE) Integumentary: reports: redness (mild b/l LE) Neurologic: denies: headache All Other Symptoms All Other Systems: Reviewed and Negative Past Medical History Past Medical History: Medical Problems: (1) Acute kidney injury (2) CHF (congestive heart failure) (3) Chronic kidney disease (4) Deep vein blood clot of right lower extremity (5) Diabetes (6) Diastolic CHF (7) Respiratory failure, acute (8) Volume overload Surgical Hx: s/p Lumpectomy s/p radiation Family History Patient reports no known family medical history. Social History Hx Tobacco Use In Past Year?: Yes Smoking Status: Current Every Day Smoker Marital status: Occupational Status: retired Allergies Coded Allergies: Melatonin (Verified Allergy, Severe, RASH, 07/03/17) Penicillins (Verified Allergy, Unknown, UNLNOWN, 01/20/16) Current Medications Reported Home Medications Medications Dose Route/Sig Max Daily Dose Days Date Category Dulera 100/5 Mcg (Mometasone Furoate-Formoterol) 1 Aer Aer 1 Aer INH BID 07/03/17 Reported Tudorza Pressair (Aclidinium [place]) 400 Mcg/Act Aer INH UD 07/03/17 Reported Jantoven (Warfarin Sodium) 4 Mg Tab 2 Tabs PO DAILY 07/03/17 Reported Rosuvastatin Calcium 10 Mg Tab 10 Mg PO DAILY 07/03/17 Reported Arimidex (Anastrozole) 1 Mg Tab 1 Mg PO DAILY 07/03/17 Reported Caltrate 600 Plus (Calcium Carbonate-Vitamin D W/) 1 Tab Tab 1 Tab PO DAILY 07/03/17 Reported Klor-Con (Potassium Chloride) 20 Meq Tabcr 20 Meq PO TID 01/20/16 Reported Protonix (Pantoprazole Sodium) 40 Mg Tab 40 Mg PO DAILY 01/20/16 Reported Mag-Ox (Magnesium Oxide) 400 Mg Tab 400 Mg PO DAILY 01/20/16 Reported Uloric (Febuxostat) 40 Mg Tab 1 Tab PO DAILY 30 01/20/16 Reported Aldactone (Spironolactone) 25 Mg Tab 25 Mg PO DAILY 01/20/16 Reported Synthroid (Levothyroxine Sodium) 112 Mcg Tab 112 Mcg PO DAILY 01/20/16 Reported Docusate Sodium 100 Mg Cap 1 Cap PO DAILY 7 01/20/16 Reported Lyrica (Pregabalin) 150 Mg Cap 150 Mg PO TID 01/20/16 Reported Lasix (Furosemide) 80 Mg Tab 80 Mg PO BID 01/20/16 Reported Lopressor (Metoprolol Tartrate) 25 Mg Tab 37.5 Mg PO QAM 01/20/16 Reported Zoloft (Sertraline HCl) 100 Mg Tab 150 Mg PO DAILY 01/20/16 Reported Physical Physical Exam Vital Signs: Date Time Temp Pulse Resp B/P (MAP) Pulse Ox O2 Delivery O2 Flow Rate FiO2 07/05/17 09:45 87/71 (76) 07/05/17 09:10 112 18 93/64 (74) 93 Nasal Cannula 3.0 07/05/17 09:03 108 76/36 (49) 07/05/17 08:51 107 80/52 (61) 07/05/17 08:05 96 18 90 Room Air 07/05/17 08:00 98 94/63 (73) 07/05/17 07:18 36.5 80 20 170/111 (130) 94 Nasal Cannula 3.0 161/85 (110) 07/05/17 06:43 81 16 92 Room Air 07/05/17 04:00 Nasal Cannula 3.0 07/05/17 03:49 36.8 87 20 106/62 (77) 92 Nasal Cannula 3.0 07/05/17 00:23 36.8 90 21 114/60 (78) 93 Nasal Cannula 3.0 07/05/17 00:00 Nasal Cannula 3.0 07/04/17 20:00 Nasal Cannula 3.0 07/04/17 19:43 36.5 84 16 112/76 (88) 95 07/04/17 19:06 85 16 86 Room Air 07/04/17 16:00 Nasal Cannula 3.0 07/04/17 15:59 36.8 81 18 139/60 (86) 98 07/04/17 15:24 82 16 93 Nasal Cannula 3.0 07/04/17 12:23 36.6 90 16 103/66 (78) 90 3.0 07/04/17 12:00 Nasal Cannula 3.0 General Appearance: NO APPARENT DISTRESS, obese Head: NORMOCEPHALIC, ATRAUMATIC Eyes: EOMI, SCLERAE NORMAL Neck: TRACHEA MIDLINE, NO STRIDOR, SUPPLE Respiratory: rhonchi, wheezing, other (moderate crackles/wheezing right lower lobe and to a lesser extent right upper lobe. Mild wheezing left lung throughout ) Cardiovasular: irregular rate (tachycardia) Abdomen: NORMAL BOWEL SOUNDS Back: NORMAL INSPECTION Lower Extremities: edema (1-2+ pitting edema RLE, Trace to 1+ pitting edema LLE ) Neuro: ALERT, ORIENTED x 3 Psychiatric: NORMAL AFFECT Diagnostics Labs Results Past 24 Hours Test 07/04/17 11:26 07/04/17 16:34 07/04/17 20:28 07/05/17 05:25 Range/Units Bedside Glucose 177 96 119 70-90 mg/dl White Blood Count 11.62 4.8-10.8 K/uL Red Blood Count 5.94 4.2-5.4 M/uL Hemoglobin 15.0 12.0-16.0 g/dL Hematocrit 47.0 37-47 % Mean Corpuscular Volume 79.1 80-100 fL Mean Corpuscular Hemoglobin 25.3 25-34 pg Mean Corpuscular Hemoglobin Concent 31.9 32-36 g/dl Platelet Count 128 130-400 K/uL Neutrophils (%) (Auto) 70.7 % Lymphocytes (%) (Auto) 18.1 % Monocytes (%) (Auto) 10.3 % Eosinophils (%) (Auto) 0.4 % Basophils (%) (Auto) 0.2 % Neutrophils # (Auto) 8.22 1.4-6.5 K/uL Lymphocytes # (Auto) 2.10 1.2-3.4 K/uL Monocytes # (Auto) 1.20 0.11-0.59 K/uL Eosinophils # (Auto) 0.05 0-0.5 K/uL Basophils # (Auto) 0.02 0-0.2 K/uL RDW Standard Deviation 54.8 36.4-46.3 fL RDW Coefficient of Variation 19.4 11.5-14.5 % Immature Granulocyte % (Auto) 0.3 % Immature Granulocyte # (Auto) 0.03 0.00-0.02 K/uL Prothrombin Time 32.8 9.0-12.0 SECONDS Prothromb Time International Ratio 2.9 0.9-1.1 Sodium Level 138 136-145 mmol/L Potassium Level 4.2 3.5-5.1 mmol/L Chloride Level 97 98-107 mmol/L Carbon Dioxide Level 31 21-32 mmol/L Anion Gap 10.0 3-11 mmol/L Blood Urea Nitrogen 72 7-18 mg/dl Creatinine 2.10 0.60-1.20 mg/dl Est Creatinine Clear Calc Drug Dose 33.4 ml/min Estimated GFR () 26.4 Estimated GFR (Non- 22.8 BUN/Creatinine Ratio 34.2 10-20 Random Glucose 116 70-99 mg/dl Calcium Level 9.2 8.5-10.1 mg/dl Total Creatine Kinase 88 26-192 U/L Creatine Kinase MB 1.3 0.5-3.6 ng/ml Creatine Kinase MB Ratio 1.5 0-3.0 Troponin I < 0.015 0-0.045 ng/ml Test 07/05/17 06:41 Range/Units Bedside Glucose 113 70-90 mg/dl Microbiology Results 07/04/17 Gram Stain - Final, Resulted 07/04/17 Sputum Culture, Resulted Pending Diagnostic Radiology VS reviewed: SaO2 has been down to 86% x 1, but otherwise has been 88% or greater. She is currently saturating in the low 90s on 3L via nasal cannula. Tachycardia- Aflutter Mild hypotension today RR 18 CHEST ONE VIEW PORTABLE HISTORY: 72 years-old Female sob, hx chf acute shortness of breath with history of congestive heart failure COMPARISON: None available TECHNIQUE: AP view of the chest FINDINGS: Cardiac silhouette is moderately enlarged. Prior median sternotomy. There is atherosclerosis of the aorta. Surgical clips project over the left heart border suggesting prior CABG. There is no pneumothorax. There is mild pulmonary vascular congestion without overt pulmonary edema. Subsegmental bibasilar opacities are noted, left greater than right. Bones appear grossly intact. IMPRESSION: 1. Cardiomegaly and pulmonary vascular congestion without overt pulmonary edema. 2. Subsegmental left greater than right bibasilar opacities suggest atelectasis. EKG See HPI Impression Assessment and Plan COPD JONATHON Acute on chronic hypoxic respiratory failure Chronic O2 dependence CKD III Possible aspiration/pneumonitis Chronic CHF History of PE/DVT on Coumadin History of breast cancer s/p lumpectomy with radiation Ongoing tobacco abuse Patient with acute on chronic respiratory failure currently saturating well on 3 L via nasal cannula. Recommend continued O2 supplementation to keep patient between 88-94% ideally to avoid CO2 retention. Patient is on chronic Coumadin therapy for recurrent PE/DVT. Her INR was 2.9 this morning. Will hold off on checking ABG for this reason. VBG showed slight hypercapnia/CO2 retention. Will also order Nocturnal Pulse Oximetry study while on CPAP tonight. JONATHON on CPAP at home. Will start CPAP at night while in house- use home CPAP settings/mask for now. If patient continues to worsen, consider change to BiPAP to help with blowing off CO2. Patient is currently on IV Levaquin and PO Doxycycline. Will continue Levaquin but D/C Doxycycline and begin PO Clindamycin for concern of aspiration pneumonia /pneumonitis. This should also cover potential early cellulitis of b/l LE with peripheral edema. Will await barium swallow. Consider CT scan of the chest to better evaluate lung parenchyma/lower lobe opacities if no improvement seen over the next day or two. Continue nebs scheduled and PRN. Continue DVT/PE prophylaxis. Pulm will follow. Patient and case reviewed. Plan agreed upon.
[2017-07-05] MEDS: CLINDAMYCIN HCL 150 MG CAP PO SCH ×3 (12:33→21:03)
[2017-07-05 14:15] LABS: CKMB/CK RATIO 1.4 (0-3.0)
[2017-07-05] MEDS: METOPROLOL TARTRATE 25 MG TAB PO SCH ×2 (15:48→21:02)
[2017-07-05] MEDS: DULERA~ORDER AWAITING ACTION SCH ×2 (15:49→23:36)
[2017-07-05] MEDS ORDERED: WARFARIN SOD 6 MG TAB PO SCH (16:00)
[2017-07-05 19:43] LABS: CKMB/CK RATIO 1.5 (0-3.0)
[2017-07-06] VITALS (10 sets, daily range): BP systolic 93–124; BP diastolic 60–78; PULSE 78–98; TEMP 36.3–36.7; O2SAT 90–95
[2017-07-06] MEDS: IPRATROPIUM BROMIDE NEB SOLN 0.02% 2.5 ML VIAL INH SCH ×4 (03:00→19:01)
[2017-07-06] MEDS: LEVALBUTEROL 1.25MG/0.5ML NEB INH SCH ×4 (03:00→19:01)
[2017-07-06] MEDS: LEVOTHYROXINE 112 MCG TAB PO SCH (05:37)
[2017-07-06 05:54] LABS: INR 3.1 (0.9-1.1); PROTHROMBIN TIME (PATIENT) 35.1 SECONDS (9.0-12.0)
[2017-07-06 06:14] LABS: BUN/CREATININE RATIO 36.6 (10-20); CREATININE 2.12 mg/dl (0.60-1.20); POTASSIUM 4.8 mmol/L (3.5-5.1)
[2017-07-06] MEDS: DULERA~ORDER AWAITING ACTION SCH ×2 (08:00→16:00)
[2017-07-06] MEDS: POTASSIUM CHLORIDE 20 MEQ TABCR PO SCH ×3 (09:00→20:51)
[2017-07-06] MEDS: SPIRONOLACTONE 25 MG TAB PO SCH (09:03)
[2017-07-06] MEDS: ANASTROZOLE 1 MG TAB PO SCH (09:04)
[2017-07-06] MEDS: PANTOprazole SOD 40 MG TAB PO SCH (09:05)
[2017-07-06] MEDS: SERTRALINE HCL 100 MG TAB PO SCH (09:06)
[2017-07-06] MEDS: METOPROLOL TARTRATE 25 MG TAB PO SCH ×3 (09:09→20:51)
[2017-07-06] MEDS: FEBUXOSTAT 40 MG TAB PO SCH (09:09)
[2017-07-06] MEDS: ASPIRIN 81 MG ECTAB PO SCH (09:09)
[2017-07-06] MEDS: DOCUSATE SODIUM 100 MG CAP PO SCH (09:09)
[2017-07-06] MEDS: ROSUVASTATIN CALCIUM 10 MG TAB PO SCH (09:10)
[2017-07-06] MEDS: PREGABALIN 150 MG CAP PO SCH ×2 (09:12→20:51)
[2017-07-06] MEDS: CLINDAMYCIN HCL 150 MG CAP PO SCH ×3 (09:13→20:51)
[2017-07-06] MEDS: TORSEMIDE 20 MG TAB PO SCH ×2 (09:13→17:53)
[2017-07-06] MEDS: NICOTINE 21 MG/24 HR TDSY TD SCH (09:14)
[2017-07-06] MEDS: INSULIN GLARGINE SOLOSTAR 100 UNITS/ML 3 ML PEN SC SCH (09:19)
[2017-07-06] MEDS: INSULIN ASPART 100 UNITS/ML 3 ML PEN SC SCH ×4 (09:19→20:47)
--- NOTE | 2017-07-06 10:55 | PROGRESS NOTE ---
DATE: 07/06/2017 FOLLOWUP VISIT SUBJECTIVE: The patient is a 72-year-old [place] female who presented with decompensated right heart failure. She most likely has right heart failure due to obesity-hypoventilation syndrome and a history of sleep apnea. She had an uneventful night and actually feels better. Unfortunately, she has not been started on nasal CPAP here in the hospital at night and I think that that is of great value to her. She had an episode of chest pain earlier that was relieved with 1 sublingual nitroglycerin. Apparently, she does have chronic angina for which she takes an occasional sublingual nitroglycerin. OBJECTIVE: VITAL SIGNS: Blood pressure is 100/70, pulse is regular at 90, she is afebrile. HEENT: She is normocephalic. Pupils are equal and reactive to light. Extraocular muscles are intact bilaterally. NECK: The neck veins are flat. Carotids have good upstrokes bilaterally without bruits. Thyroid is nonpalpable. RESPIRATORY: Breath sounds equal bilaterally and clear to auscultation. CARDIOVASCULAR: Heart has an irregular rhythm. Normal S1, S2. There are no cardiac rubs or murmurs. GASTROINTESTINAL: Abdomen is obese, soft, nontender, without organomegaly. EXTREMITIES: Have edema around the feet bilaterally. NEUROLOGIC: Grossly intact. SKIN: Warm to touch. LYMPH NODES: Negative to palpation. LABORATORY DATA: Hemoglobin is 15.0. Potassium is 4.8, creatinine is 2.12, BUN is 78. IMPRESSION: 1. Right heart failure, most likely due to pulmonary hypertension. 2. Obesity-hypoventilation syndrome and sleep apnea. 3. Chronic angina. 4. History of previous coronary artery bypass surgery. 5. Atrial flutter. 6. Diabetes. 7. Hypertension. 8. Dyslipidemia. RECOMMENDATIONS: The patient is clinically doing better. We are still waiting for the records from [place] and the patient's primary subject scientific research in [place]. I think she should be on some type of CPAP at night. If our respiratory department cannot find an appropriate mask for her, then it would be helpful if somebody would bring in her home device to be utilized.
--- NOTE | 2017-07-06 11:26 | Nephrology Progress Note ---
Nephrology Progress Note Date of Service Jul 06, 2017. Chief Complaint Evaluation of progressive edema in this patient w/ CKD Subjective Ms. Rojas was seen & examined in the PCU this morning. She has responded well to IV diuretic therapy. She has had 3 L UF since admission. Ms. Rojas reports that her leg swelling has resolved however she still has mild dyspnea and expiratory wheezing. Review of Systems Constitutional: No fever Cardiovascular: No chest pain Respiratory: + dyspnea at rest, + problem reported (wheezing) Abdomen: No pain, No nausea, No vomiting Extremities: No leg edema A complete review of systems was performed. Pertinent positives are noted above. All other systems are negative. Vital Signs Last 8 Hrs Date Time Temp Pulse Resp B/P (MAP) Pulse Ox O2 Delivery O2 Flow Rate FiO2 07/06/17 08:18 36.7 89 20 93/60 (71) 90 Nasal Cannula 3.0 07/06/17 08:00 Nasal Cannula 3.0 07/06/17 06:58 83 18 95 Nasal Cannula 3.0 07/06/17 04:00 Nasal Cannula 3.0 Last Recorded Weight Weight (Kilograms): 140.000 Physical Exam General Appearance: no apparent distress Head: normocephalic, atraumatic Eyes: PERRL, EOMI Neck: no adenopathy Respiratory/Chest: + wheezing Cardiovascular: regular rate, rhythm Abdomen/GI: normal bowel sounds, non tender, soft Extremities/Musculoskelatal: + pertinent finding (trace pretibial edema) Neurologic/Psych: alert, oriented x 3 Family History Patient reports no known family medical history. Negative for CKD/ESRD Social History Marital Status: Occupation: retired . Lives in [place]. Retired. 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 H/o tobacco use 1.5 ppd. Patient denies alcohol use. Laboratory Results Past 24 Hours 07/06/17 05:27 Test 07/05/17 11:27 07/05/17 12:50 07/05/17 16:20 07/05/17 18:54 Bedside Glucose 161 mg/dl (70-90) 158 mg/dl (70-90) Total Creatine Kinase 92 U/L (26-192) 98 U/L (26-192) Creatine Kinase MB 1.3 ng/ml (0.5-3.6) 1.5 ng/ml (0.5-3.6) Creatine Kinase MB Ratio 1.4 (0-3.0) 1.5 (0-3.0) Troponin I < 0.015 ng/ml (0-0.045) < 0.015 ng/ml (0-0.045) Test 07/05/17 20:28 07/06/17 05:27 07/06/17 07:04 07/06/17 10:54 Bedside Glucose 153 mg/dl (70-90) 122 mg/dl (70-90) Prothrombin Time 35.1 SECONDS (9.0-12.0) Prothromb Time International Ratio 3.1 (0.9-1.1) Anion Gap 5.0 mmol/L (3-11) Est Creatinine Clear Calc Drug Dose 33.1 ml/min Estimated GFR () 26.1 Estimated GFR (Non- 22.5 BUN/Creatinine Ratio 36.6 (10-20) Calcium Level 9.0 mg/dl (8.5-10.1) Date/Time Source Procedure Growth Status 07/05/17 12:10 Sputum Expectorated Sputum Gram Stain - Final Complete 07/05/17 12:10 Sputum Expectorated Sputum Sputum Culture - Final Complete Allergies Coded Allergies: Melatonin (Verified Allergy, Severe, RASH, 07/03/17) Penicillins (Verified Allergy, Unknown, UNLNOWN, 01/20/16) Medications Current Inpatient Medications Medications (Trade) Dose Ordered Sig/Isidoro Route Start Time Stop Time Status Last Admin Dose Admin Insulin Glargine (Lantus Solostar Pen) 5 units DAILY SC 07/05/17 09:00 08/04/17 08:59 07/06/17 09:19 5 UNITS Acetaminophen (Tylenol Tab) 650 mg Q4H PRN PO 07/04/17 00:45 08/03/17 00:44 Nitroglycerin (Nitrostat Tab) 0.4 mg UD PRN SL 07/04/17 00:45 08/03/17 00:44 07/05/17 07:58 0.4 MG Insulin Aspart (novoLOG ASPART) SLIDING SCALE If C... ACHS SC 07/04/17 07:00 08/03/17 06:59 07/06/17 09:19 4 UNITS Glucose (Glucose 40% Gel) 15-30 GRAMS 15 GRAMS... UD PRN PO 07/04/17 00:45 08/03/17 00:44 Glucose (Glucose Chew Tab) 4-8 Tablets 4 Tabl... UD PRN PO 07/04/17 00:45 08/03/17 00:44 Dextrose (Dextrose 50% 50ML Syringe) 25-50ML OF 50% DW IV FOR... UD PRN IV 07/04/17 00:45 08/03/17 00:44 Glucagon (Glucagon Inj) 1 mg UD PRN SQ 07/04/17 00:45 08/03/17 00:44 Anastrozole (Arimidex Tab) 1 mg DAILY PO 07/04/17 09:00 08/03/17 08:59 07/06/17 09:04 1 MG Docusate Sodium (coLACE CAP) 100 mg DAILY PO 07/04/17 09:00 08/03/17 08:59 07/06/17 09:09 100 MG Levothyroxine Sodium (Synthroid Tab) 112 mcg DAILYBB PO 07/04/17 06:00 08/03/17 06:59 07/06/17 05:37 112 MCG Pantoprazole Sodium (Protonix Tab) 40 mg DAILY PO 07/04/17 09:00 08/03/17 08:59 07/06/17 09:05 40 MG Potassium Chloride (Klor-Con Tab) 20 meq TID PO 07/04/17 09:00 08/03/17 08:59 07/05/17 21:03 20 MEQ Rosuvastatin Calcium (Crestor Tab) 10 mg DAILY PO 07/04/17 09:00 08/03/17 08:59 07/06/17 09:10 10 MG Sertraline HCl (Zoloft Tab) 150 mg DAILY PO 07/04/17 09:00 08/03/17 08:59 07/06/17 09:06 150 MG Febuxostat (Uloric) 40 mg DAILY PO 07/04/17 09:00 08/03/17 08:59 07/06/17 09:09 40 MG Aspirin (Ecotrin Tab) 81 mg QAM PO 07/04/17 09:00 08/03/17 08:59 07/06/17 09:09 81 MG Tramadol HCl (Ultram Tab) not relieved by tylenol @ Q6H PRN PO 07/04/17 01:15 08/03/17 01:14 Hydromorphone HCl (Dilaudid Inj) 0.5 mg Q3H PRN IV 07/04/17 01:15 07/18/17 01:14 Ondansetron HCl (Zofran Inj) 4 mg Q6H PRN IV 07/04/17 01:15 08/03/17 01:14 Nicotine (Nicoderm Cq 21MG Patch) 1 patch QAM TD 07/04/17 09:00 08/03/17 08:59 07/06/17 09:14 1 PATCH Miscellaneous (Remove Nicoderm Patch) 1 ea HS N/A 07/04/17 21:00 08/03/17 20:59 07/05/17 21:04 1 EA Ipratropium [place] (Atrovent 0.02% 0.5MG/2.5ML Neb) 0.5 mg Q6R INH 07/04/17 03:00 08/03/17 02:59 07/06/17 06:56 0.5 MG Levalbuterol (Xopenex 1.25MG/ 0.5ML Neb) 1.25 mg Q6R INH 07/04/17 03:00 08/03/17 02:59 07/06/17 06:56 1.25 MG Ipratropium [place] (Atrovent 0.02% 0.5MG/2.5ML Neb) 0.5 mg Q4H PRN INH 07/04/17 01:30 08/03/17 01:29 07/05/17 08:05 0.5 MG Levalbuterol (Xopenex 1.25MG/ 0.5ML Neb) 1.25 mg Q4H PRN INH 07/04/17 01:30 08/03/17 01:29 07/05/17 08:05 1.25 MG Furosemide 80 mg/ Syringe 8 ml @ 4 mls/min BID17 IV 07/04/17 17:00 08/03/17 16:59 Future Hold 07/04/17 16:54 4 MLS/MIN Levofloxacin (Consult) 1 ea UD PRN N/A 07/05/17 08:30 08/04/17 08:29 Warfarin Sodium (Coumadin Tab) 6 mg DAILY@16 PO 07/05/17 16:00 08/03/17 15:59 07/05/17 15:49 6 MG Levofloxacin 750 mg/Prmx 150 ml @ 100 mls/hr Q48H IV 07/05/17 10:00 07/12/17 09:59 07/05/17 09:44 100 MLS/HR Miscellaneous Information (Order Awaiting Action) 1 ea QS N/A 07/05/17 16:00 08/04/17 15:59 Miscellaneous Information (Order Awaiting Action) 1 ea QS N/A 07/05/17 16:00 08/04/17 15:59 Clindamycin HCl (Cleocin Cap) 300 mg TID PO 07/05/17 11:00 07/12/17 10:59 07/06/17 09:13 300 MG Metoprolol Tartrate (Lopressor Tab) 25 mg TID PO 07/05/17 14:00 08/03/17 08:59 07/06/17 09:09 25 MG Pregabalin (Lyrica Cap) 150 mg BID PO 07/05/17 21:00 08/03/17 08:59 07/06/17 09:12 150 MG Torsemide (Demadex Tab) 40 mg BID17 PO 07/06/17 09:00 08/05/17 08:59 07/06/17 09:13 40 MG Spironolactone (Aldactone Tab) 25 mg QAM PO 07/06/17 09:00 08/05/17 08:59 07/06/17 09:03 25 MG Prednisone (PredniSONE TAB) 40 mg DAILY PO 07/06/17 09:00 08/05/17 08:59 07/06/17 09:10 40 MG Impression (1) Diastolic CHF (2) Acute kidney injury (3) Chronic kidney disease (4) Volume overload (5) Diabetes Ms. Rojas was admitted to the hospital for evaluation of progressive LE edema, BAKER and LE cellulitis. She denies any change to her diet. She has been taking Furosemide 80 mg po bid and recently added PRN Zaroxolyn. Despite these changes her LE has worsened. Weight remains stable at 306 lbs. Echocardiogram reveals preserved LVEF 55 - 60% Recommendations PERIPHERAL EDEMA: -- Improved. Dry weight appears to be ~ 306 lbs -- Will change diuretic to Demadex 40 mg po BID -- Monitor I&O's, daily weight -- Dietitian has provided patient education on 1500 mg / day sodium restricted diet ACUTE KIDNEY INJURY: -- Baseline creatinine has risen to 2.1. May need to accept mild increase in creatinine to maintain euvolemia and functional status -- Urine sediment is bland, patient is not proteinuric -- No acute indication for renal US at this time -- Monitor PRP PULM: -- Wheezing bilaterally. Suspect element of RAD. Pulmonology has started steroids and nebulizer treatments
--- NOTE | 2017-07-06 16:39 | Progress Note ---
Medicine Progress Note Date & Time of Visit: Jul 06, 2017 at 16:32. Subjective states she feels improved today no recurrence of chest pain breathing has also improved, less cough able to ambulate again with PT today no other symptoms Objective Last 8 Hrs Date Time Temp Pulse Resp B/P (MAP) Pulse Ox O2 Delivery O2 Flow Rate FiO2 07/06/17 15:48 36.3 98 20 121/78 (92) 92 Nasal Cannula 3.0 07/06/17 14:11 82 18 93 Nasal Cannula 3.0 07/06/17 12:00 Nasal Cannula 3.0 07/06/17 11:31 36.5 78 19 119/69 (86) 93 Nasal Cannula 3.0 Physical Exam: General- oriented x 3, not in distress, speaks in sentences with no effort Eyes- anicteric Neck- no JVD Lungs- faint scattered wheeze bilaterally, no rales/crackles Heart-normal rate, irregularly irregular rhythm, no murmurs Abdomen- normal bowel sounds, soft, nontender Extremities- (+) mild edema of the bilateral lower legs, no warmth, no tenderness Neuro- alert, oriented x 3; PERRL, EOMI; no facial palsy; no dysarthria; motor 5 /5 bilaterally; no gross focal deficits Skin- warm & dry Laboratory Results: Last 24 Hours Test 07/05/17 18:54 07/05/17 20:28 07/06/17 05:27 07/06/17 07:04 Total Creatine Kinase 98 U/L Creatine Kinase MB 1.5 ng/ml Creatine Kinase MB Ratio 1.5 Troponin I < 0.015 ng/ml Bedside Glucose 153 mg/dl 122 mg/dl Prothrombin Time 35.1 SECONDS Prothromb Time International Ratio 3.1 Sodium Level 135 mmol/L Potassium Level 4.8 mmol/L Chloride Level 100 mmol/L Carbon Dioxide Level 30 mmol/L Anion Gap 5.0 mmol/L Blood Urea Nitrogen 78 mg/dl Creatinine 2.12 mg/dl Est Creatinine Clear Calc Drug Dose 33.1 ml/min Estimated GFR () 26.1 Estimated GFR (Non- 22.5 BUN/Creatinine Ratio 36.6 Random Glucose 130 mg/dl Calcium Level 9.0 mg/dl Test 07/06/17 10:54 Bedside Glucose 87 mg/dl Assessment & Plan 72 / F with history of Chronic Respiratory Failure on home O2, CAD/CABG, HTN, CKD 3, ACUTE ON CHRONIC HYPOXIC RESPIRATORY FAILURE LIKELY FROM COPD EXACERBATION FROM ACUTE BRONCHITIS, POSSIBLE BILATERAL LOWER LOBE PNEUMONIA VS. ASPIRATION - 07/05: increased wheezing resumed Prednisone 40mg po daily Levaquin added to Clinda continued Levalbuterol/Ipratropium q4h and PRN continued Dulera and Tudorza CPAP ordered - improved today appreciate Pulm SVC recommendations ACUTE ON CHRONIC DIASTOLIC CHF EXACERBATION ? - CXR no pulmonary edema BNP normal - (+) leg edema Nephro consulted on Lasix 80mg IV--> transitioned to Torsemide and Spironolactone continues to diurese appreciate Nephro and Cardio SVC recommendations CHEST PAIN, ANGINA FROM HTN URGENCY? HISTORY OF CAD/CABG/STENT - EKG a flutter rate controlled cardiac markers negative - ECHO: Normal LV chamber size with mild concentric LVH. * Normal LV systolic function, abnormal septal wall motion consistent with post-operative state, EF 55-60%. * Grade I diastolic dysfunction. * A bicuspid aortic valve cannot be excluded. Mildly calcified. Trace aortic regurgitation. No hemodynamically significant valvular aortic stenosis. -- resolved with 1 nitro already on Coumadin Aspirin, Statin -- from HTN urgency secondary to COPD exacerbation? BP 160s --> 90s, chest pain resolved -- Cardiology consulted, appreciate the recommendations LEFT LOWER EXTREMITY EDEMA - chronic as per patient increased lately - Doppler US: negative - management as noted above - component of Cellulitis? on Clindamycin PARESTHESIAS, DIGIT4 AND 5, RIGHT - likely Ulnar Nerve unvolvement - may need EMG as outpatient CAD/CABG -- management as noted above ATRIAL FLUTTER -- INR 3.1 hold coumadin today INR daily Hypertension - continue Metoprolol, usually on 37.5mg po daily, now on 25mg BID CKD 3 - records requested from PCP - baseline crea 0.68 per outside records crea at 2.1, monitor crea while on Lasix Breast cancer, left, status post surgery, radiation, ongoing hormone therapy. Ongoing tobacco abuse. - Nicotine Patch JONATHON - CPAP DVT proph Coumadin INR 3.1 Dispo pending lives at home with daughter PT/OT anticipate d/c home when medically stable Current Inpatient Medications: Current Inpatient Medications Medications (Trade) Dose Ordered Sig/Isidoro Route Start Time Stop Time Status Last Admin Dose Admin Insulin Glargine (Lantus Solostar Pen) 5 units DAILY SC 07/05/17 09:00 08/04/17 08:59 07/06/17 09:19 5 UNITS Acetaminophen (Tylenol Tab) 650 mg Q4H PRN PO 07/04/17 00:45 08/03/17 00:44 Nitroglycerin (Nitrostat Tab) 0.4 mg UD PRN SL 07/04/17 00:45 08/03/17 00:44 07/05/17 07:58 0.4 MG Insulin Aspart (novoLOG ASPART) SLIDING SCALE If C... ACHS SC 07/04/17 07:00 08/03/17 06:59 07/06/17 09:19 4 UNITS Glucose (Glucose 40% Gel) 15-30 GRAMS 15 GRAMS... UD PRN PO 07/04/17 00:45 08/03/17 00:44 Glucose (Glucose Chew Tab) 4-8 Tablets 4 Tabl... UD PRN PO 07/04/17 00:45 08/03/17 00:44 Dextrose (Dextrose 50% 50ML Syringe) 25-50ML OF 50% DW IV FOR... UD PRN IV 07/04/17 00:45 08/03/17 00:44 Glucagon (Glucagon Inj) 1 mg UD PRN SQ 07/04/17 00:45 08/03/17 00:44 Anastrozole (Arimidex Tab) 1 mg DAILY PO 07/04/17 09:00 08/03/17 08:59 07/06/17 09:04 1 MG Docusate Sodium (coLACE CAP) 100 mg DAILY PO 07/04/17 09:00 08/03/17 08:59 07/06/17 09:09 100 MG Levothyroxine Sodium (Synthroid Tab) 112 mcg DAILYBB PO 07/04/17 06:00 08/03/17 06:59 07/06/17 05:37 112 MCG Pantoprazole Sodium (Protonix Tab) 40 mg DAILY PO 07/04/17 09:00 08/03/17 08:59 07/06/17 09:05 40 MG Potassium Chloride (Klor-Con Tab) 20 meq TID PO 07/04/17 09:00 08/03/17 08:59 07/05/17 21:03 20 MEQ Rosuvastatin Calcium (Crestor Tab) 10 mg DAILY PO 07/04/17 09:00 08/03/17 08:59 07/06/17 09:10 10 MG Sertraline HCl (Zoloft Tab) 150 mg DAILY PO 07/04/17 09:00 08/03/17 08:59 07/06/17 09:06 150 MG Febuxostat (Uloric) 40 mg DAILY PO 07/04/17 09:00 08/03/17 08:59 07/06/17 09:09 40 MG Aspirin (Ecotrin Tab) 81 mg QAM PO 07/04/17 09:00 08/03/17 08:59 07/06/17 09:09 81 MG Tramadol HCl (Ultram Tab) not relieved by tylenol @ Q6H PRN PO 07/04/17 01:15 08/03/17 01:14 Hydromorphone HCl (Dilaudid Inj) 0.5 mg Q3H PRN IV 07/04/17 01:15 07/18/17 01:14 Ondansetron HCl (Zofran Inj) 4 mg Q6H PRN IV 07/04/17 01:15 08/03/17 01:14 Nicotine (Nicoderm Cq 21MG Patch) 1 patch QAM TD 07/04/17 09:00 08/03/17 08:59 07/06/17 09:14 1 PATCH Miscellaneous (Remove Nicoderm Patch) 1 ea HS N/A 07/04/17 21:00 08/03/17 20:59 07/05/17 21:04 1 EA Ipratropium [place] (Atrovent 0.02% 0.5MG/2.5ML Neb) 0.5 mg Q6R INH 07/04/17 03:00 08/03/17 02:59 07/06/17 14:09 0.5 MG Levalbuterol (Xopenex 1.25MG/ 0.5ML Neb) 1.25 mg Q6R INH 07/04/17 03:00 08/03/17 02:59 07/06/17 14:09 1.25 MG Ipratropium [place] (Atrovent 0.02% 0.5MG/2.5ML Neb) 0.5 mg Q4H PRN INH 07/04/17 01:30 08/03/17 01:29 07/05/17 08:05 0.5 MG Levalbuterol (Xopenex 1.25MG/ 0.5ML Neb) 1.25 mg Q4H PRN INH 07/04/17 01:30 08/03/17 01:29 07/05/17 08:05 1.25 MG Levofloxacin (Consult) 1 ea UD PRN N/A 07/05/17 08:30 08/04/17 08:29 Levofloxacin 750 mg/Prmx 150 ml @ 100 mls/hr Q48H IV 07/05/17 10:00 07/12/17 09:59 07/05/17 09:44 100 MLS/HR Miscellaneous Information (Order Awaiting Action) 1 ea QS N/A 07/05/17 16:00 08/04/17 15:59 Miscellaneous Information (Order Awaiting Action) 1 ea QS N/A 07/05/17 16:00 08/04/17 15:59 Clindamycin HCl (Cleocin Cap) 300 mg TID PO 07/05/17 11:00 07/12/17 10:59 07/06/17 09:13 300 MG Metoprolol Tartrate (Lopressor Tab) 25 mg TID PO 07/05/17 14:00 08/03/17 08:59 07/06/17 09:09 25 MG Pregabalin (Lyrica Cap) 150 mg BID PO 07/05/17 21:00 08/03/17 08:59 07/06/17 09:12 150 MG Torsemide (Demadex Tab) 40 mg BID17 PO 07/06/17 09:00 08/05/17 08:59 07/06/17 09:13 40 MG Spironolactone (Aldactone Tab) 25 mg QAM PO 07/06/17 09:00 08/05/17 08:59 07/06/17 09:03 25 MG Prednisone (PredniSONE TAB) 40 mg DAILY PO 07/06/17 09:00 08/05/17 08:59 07/06/17 09:10 40 MG
[2017-07-06] MEDS ORDERED: TORSEMIDE 20 MG TAB PO SCH (21:00)
[2017-07-07 05:57] LABS: MEAN CORPUSCULAR HGB CONC 32.3 g/dl (32-36)
[2017-07-07] MEDS: LEVOTHYROXINE 112 MCG TAB PO SCH (05:57)
[2017-07-07 06:03] LABS: HEMATOCRIT 46.4 % (37-47); MEAN CELL VOLUME 77.7 fL (80-100); MEAN CORPUSCULAR HEMOGLOBIN 25.1 pg (25-34); RED BLOOD COUNT 5.97 M/uL (4.2-5.4); WHITE BLOOD COUNT 10.34 K/uL (4.8-10.8)
[2017-07-07 06:10] LABS: INR 2.8 (0.9-1.1); PROTHROMBIN TIME (PATIENT) 30.7 SECONDS (9.0-12.0)
[2017-07-07 06:25] LABS: PLATELET COUNT 115 K/uL (130-400)
[2017-07-07 06:27] LABS: BASO % 0.1 %; BASO ABS # 0.01 K/uL (0-0.2); COMPLETE YES; EOS % 0.3 %; IG% 0.4 %; LYMPH % 16.5 %; LYMPH ABS # 1.71 K/uL (1.2-3.4); NEUT % 71.7 %; PLT ESTIMATE DECREASED
[2017-07-07 06:45] LABS: BUN/CREATININE RATIO 41.4 (10-20); CALCIUM 8.5 mg/dl (8.5-10.1); CREATININE 2.08 mg/dl (0.60-1.20); POTASSIUM 3.7 mmol/L (3.5-5.1)
[2017-07-07] MEDS: LEVALBUTEROL 1.25MG/0.5ML NEB INH SCH ×3 (06:57→19:11)
[2017-07-07] MEDS: IPRATROPIUM BROMIDE NEB SOLN 0.02% 2.5 ML VIAL INH SCH ×3 (06:57→19:10)
[2017-07-07 06:59] VITALS: PULSE 91; O2SAT 91
[2017-07-07 07:29] VITALS: BP 122/77; PULSE 97; TEMP 36.8; O2SAT 92
[2017-07-07] MEDS: INSULIN GLARGINE SOLOSTAR 100 UNITS/ML 3 ML PEN SC SCH (07:50)
[2017-07-07] MEDS: INSULIN ASPART 100 UNITS/ML 3 ML PEN SC SCH ×4 (07:50→20:41)
[2017-07-07] MEDS: SPIRONOLACTONE 25 MG TAB PO SCH (07:51)
[2017-07-07] MEDS: SERTRALINE HCL 100 MG TAB PO SCH (07:51)
[2017-07-07] MEDS: POTASSIUM CHLORIDE 20 MEQ TABCR PO SCH ×3 (07:52→20:45)
[2017-07-07] MEDS: ANASTROZOLE 1 MG TAB PO SCH (07:52)
[2017-07-07] MEDS: NICOTINE 21 MG/24 HR TDSY TD SCH (07:53)
[2017-07-07] MEDS: METOPROLOL TARTRATE 25 MG TAB PO SCH ×3 (07:53→20:45)
[2017-07-07] MEDS: ROSUVASTATIN CALCIUM 10 MG TAB PO SCH (07:53)
[2017-07-07] MEDS: FEBUXOSTAT 40 MG TAB PO SCH (07:53)
[2017-07-07] MEDS: PANTOprazole SOD 40 MG TAB PO SCH (07:53)
[2017-07-07] MEDS: CLINDAMYCIN HCL 150 MG CAP PO SCH ×3 (07:54→20:45)
[2017-07-07] MEDS: TORSEMIDE 20 MG TAB PO SCH ×2 (07:54→16:11)
[2017-07-07] MEDS: ASPIRIN 81 MG ECTAB PO SCH (07:54)
[2017-07-07] MEDS: DOCUSATE SODIUM 100 MG CAP PO SCH (07:54)
[2017-07-07] MEDS: DULERA~ORDER AWAITING ACTION SCH ×3 (07:56→16:00)
[2017-07-07] MEDS: PREGABALIN 150 MG CAP PO SCH ×2 (07:56→20:45)
[2017-07-07] MEDS: LEVOFLOXACIN 750MG / D5W IV SCH (09:23)
--- NOTE | 2017-07-07 11:05 | Nephrology Progress Note ---
Nephrology Progress Note Date of Service Jul 07, 2017. Chief Complaint Evaluation of progressive edema in this patient w/ CKD Subjective Mrs. Rojas was seen & examined in the ICU this morning. She was sitting up in a chair. She was breathing comfortably on O2 at 3 L / min NC. Her primary concern is persistent wheezing. Mrs. Rojas reports continued brisk urine output in response to Demadex therapy. Review of Systems Constitutional: No fever Cardiovascular: No chest pain Respiratory: No dyspnea at rest Abdomen: No pain, No nausea, No vomiting Genitourinary - Female: No dysuria Extremities: + leg edema A complete review of systems was performed. Pertinent positives are noted above. All other systems are negative. Vital Signs Last 8 Hrs Date Time Temp Pulse Resp B/P (MAP) Pulse Ox O2 Delivery O2 Flow Rate FiO2 07/07/17 08:00 Nasal Cannula 07/07/17 07:29 36.8 97 18 122/77 (92) 92 3.0 07/07/17 06:59 91 18 91 Nasal Cannula 3.0 07/07/17 04:00 Nasal Cannula 3.0 Last Recorded Weight Weight (Kilograms): 139.000 Physical Exam General Appearance: no apparent distress Head: normocephalic, atraumatic Eyes: PERRL, EOMI Neck: no adenopathy Respiratory/Chest: + wheezing (expiratory wheezing throughout all lung peng with prolonged expiratory phase) Cardiovascular: regular rate, rhythm Abdomen/GI: non tender, soft Extremities/Musculoskelatal: + pertinent finding (trace to 1+ pretibial pitting edema) Neurologic/Psych: alert, oriented x 3 Family History Patient reports no known family medical history. Negative for CKD/ESRD Social History Marital Status: Occupation: retired . Lives in [place], [place]. Retired. 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 H/o tobacco use 1.5 ppd. Patient denies alcohol use. Laboratory Results Past 24 Hours 07/07/17 05:22 Red Blood Count 5.97, Mean Corpuscular Volume 77.7, Mean Corpuscular Hemoglobin 25.1, Mean Corpuscular Hemoglobin Concent 32.3, Neutrophils (%) (Auto) 71.7, Lymphocytes (%) (Auto) 16.5, Monocytes (%) (Auto) 11.0, Eosinophils (%) (Auto) 0.3, Basophils (%) (Auto) 0.1, Neutrophils # (Auto) 7.41, Lymphocytes # (Auto) 1.71, Monocytes # (Auto) 1.14, Eosinophils # (Auto) 0.03, Basophils # (Auto) 0.01 07/07/17 05:22 Test 07/06/17 16:26 07/06/17 20:16 07/07/17 05:22 07/07/17 07:14 Bedside Glucose 138 mg/dl (70-90) 173 mg/dl (70-90) 92 mg/dl (70-90) White Blood Count 10.34 K/uL (4.8-10.8) Red Blood Count 5.97 M/uL (4.2-5.4) Hemoglobin 15.0 g/dL (12.0-16.0) Hematocrit 46.4 % (37-47) Mean Corpuscular Volume 77.7 fL (80-100) Mean Corpuscular Hemoglobin 25.1 pg (25-34) Mean Corpuscular Hemoglobin Concent 32.3 g/dl (32-36) Platelet Count 115 K/uL (130-400) Neutrophils (%) (Auto) 71.7 % Lymphocytes (%) (Auto) 16.5 % Monocytes (%) (Auto) 11.0 % Eosinophils (%) (Auto) 0.3 % Basophils (%) (Auto) 0.1 % Neutrophils # (Auto) 7.41 K/uL (1.4-6.5) Lymphocytes # (Auto) 1.71 K/uL (1.2-3.4) Monocytes # (Auto) 1.14 K/uL (0.11-0.59) Eosinophils # (Auto) 0.03 K/uL (0-0.5) Basophils # (Auto) 0.01 K/uL (0-0.2) RDW Standard Deviation 53.5 fL (36.4-46.3) RDW Coefficient of Variation 19.1 % (11.5-14.5) Immature Granulocyte % (Auto) 0.4 % Immature Granulocyte # (Auto) 0.04 K/uL (0.00-0.02) Platelet Estimate DECREASED Prothrombin Time 30.7 SECONDS (9.0-12.0) Prothromb Time International Ratio 2.8 (0.9-1.1) Anion Gap 8.0 mmol/L (3-11) Est Creatinine Clear Calc Drug Dose 33.6 ml/min Estimated GFR () 26.7 Estimated GFR (Non- 23.0 BUN/Creatinine Ratio 41.4 (10-20) Calcium Level 8.5 mg/dl (8.5-10.1) Allergies Coded Allergies: Melatonin (Verified Allergy, Severe, RASH, 07/03/17) Penicillins (Verified Allergy, Unknown, [place]LNOWN, 01/20/16) Medications Current Inpatient Medications Medications (Trade) Dose Ordered Sig/Isidoro Route Start Time Stop Time Status Last Admin Dose Admin Insulin Glargine (Lantus Solostar Pen) 5 units DAILY SC 07/05/17 09:00 08/04/17 08:59 07/07/17 07:50 5 UNITS Acetaminophen (Tylenol Tab) 650 mg Q4H PRN PO 07/04/17 00:45 08/03/17 00:44 Nitroglycerin (Nitrostat Tab) 0.4 mg UD PRN SL 07/04/17 00:45 08/03/17 00:44 07/05/17 07:58 0.4 MG Insulin Aspart (novoLOG ASPART) SLIDING SCALE If C... ACHS SC 07/04/17 07:00 08/03/17 06:59 07/07/17 07:50 2 UNITS Glucose (Glucose 40% Gel) 15-30 GRAMS 15 GRAMS... UD PRN PO 07/04/17 00:45 08/03/17 00:44 Glucose (Glucose Chew Tab) 4-8 Tablets 4 Tabl... UD PRN PO 07/04/17 00:45 08/03/17 00:44 Dextrose (Dextrose 50% 50ML Syringe) 25-50ML OF 50% DW IV FOR... UD PRN IV 07/04/17 00:45 08/03/17 00:44 Glucagon (Glucagon Inj) 1 mg UD PRN SQ 07/04/17 00:45 08/03/17 00:44 Anastrozole (Arimidex Tab) 1 mg DAILY PO 07/04/17 09:00 08/03/17 08:59 07/07/17 07:52 1 MG Docusate Sodium (coLACE CAP) 100 mg DAILY PO 07/04/17 09:00 08/03/17 08:59 07/07/17 07:54 100 MG Levothyroxine Sodium (Synthroid Tab) 112 mcg DAILYBB PO 07/04/17 06:00 08/03/17 06:59 07/07/17 05:57 112 MCG Pantoprazole Sodium (Protonix Tab) 40 mg DAILY PO 07/04/17 09:00 08/03/17 08:59 07/07/17 07:53 40 MG Potassium Chloride (Klor-Con Tab) 20 meq TID PO 07/04/17 09:00 08/03/17 08:59 07/07/17 07:52 20 MEQ Rosuvastatin Calcium (Crestor Tab) 10 mg DAILY PO 07/04/17 09:00 08/03/17 08:59 07/07/17 07:53 10 MG Sertraline HCl (Zoloft Tab) 150 mg DAILY PO 07/04/17 09:00 08/03/17 08:59 07/07/17 07:51 150 MG Febuxostat (Uloric) 40 mg DAILY PO 07/04/17 09:00 08/03/17 08:59 07/07/17 07:53 40 MG Aspirin (Ecotrin Tab) 81 mg QAM PO 07/04/17 09:00 08/03/17 08:59 07/07/17 07:54 81 MG Tramadol HCl (Ultram Tab) not relieved by tylenol @ Q6H PRN PO 07/04/17 01:15 08/03/17 01:14 Hydromorphone HCl (Dilaudid Inj) 0.5 mg Q3H PRN IV 07/04/17 01:15 07/18/17 01:14 Ondansetron HCl (Zofran Inj) 4 mg Q6H PRN IV 07/04/17 01:15 08/03/17 01:14 Nicotine (Nicoderm Cq 21MG Patch) 1 patch QAM TD 07/04/17 09:00 08/03/17 08:59 07/07/17 07:53 1 PATCH Miscellaneous (Remove Nicoderm Patch) 1 ea HS N/A 07/04/17 21:00 08/03/17 20:59 07/06/17 20:47 1 EA Ipratropium [place] (Atrovent 0.02% 0.5MG/2.5ML Neb) 0.5 mg Q6R INH 07/04/17 03:00 08/03/17 02:59 07/07/17 06:57 0.5 MG Levalbuterol (Xopenex 1.25MG/ 0.5ML Neb) 1.25 mg Q6R INH 07/04/17 03:00 08/03/17 02:59 07/07/17 06:57 1.25 MG Ipratropium [place] (Atrovent 0.02% 0.5MG/2.5ML Neb) 0.5 mg Q4H PRN INH 07/04/17 01:30 08/03/17 01:29 07/05/17 08:05 0.5 MG Levalbuterol (Xopenex 1.25MG/ 0.5ML Neb) 1.25 mg Q4H PRN INH 07/04/17 01:30 08/03/17 01:29 07/05/17 08:05 1.25 MG Levofloxacin (Consult) 1 ea UD PRN N/A 07/05/17 08:30 08/04/17 08:29 Levofloxacin 750 mg/Prmx 150 ml @ 100 mls/hr Q48H IV 07/05/17 10:00 07/12/17 09:59 07/07/17 09:23 100 MLS/HR Miscellaneous Information (Order Awaiting Action) 1 ea QS N/A 07/05/17 16:00 08/04/17 15:59 Miscellaneous Information (Order Awaiting Action) 1 ea QS N/A 07/05/17 16:00 08/04/17 15:59 Clindamycin HCl (Cleocin Cap) 300 mg TID PO 07/05/17 11:00 07/12/17 10:59 07/07/17 07:54 300 MG Metoprolol Tartrate (Lopressor Tab) 25 mg TID PO 07/05/17 14:00 08/03/17 08:59 07/07/17 07:53 25 MG Pregabalin (Lyrica Cap) 150 mg BID PO 07/05/17 21:00 08/03/17 08:59 07/07/17 07:56 150 MG Torsemide (Demadex Tab) 40 mg BID17 PO 07/06/17 09:00 08/05/17 08:59 07/07/17 07:54 40 MG Spironolactone (Aldactone Tab) 25 mg QAM PO 07/06/17 09:00 08/05/17 08:59 07/07/17 07:51 25 MG Prednisone (PredniSONE TAB) 40 mg DAILY PO 07/06/17 09:00 08/05/17 08:59 07/07/17 07:52 40 MG Impression (1) Diastolic CHF (2) Acute kidney injury (3) Chronic kidney disease (4) Volume overload (5) Diabetes Ms. Rojas was admitted to the hospital for evaluation of progressive LE edema, BAKER and LE cellulitis. She denies any change to her diet. She has been taking Furosemide 80 mg po bid and recently added PRN Zaroxolyn. Despite these changes her LE has worsened. Weight remains stable at 306 lbs. Echocardiogram reveals preserved LVEF 55 - 60% Recommendations PERIPHERAL EDEMA: -- Improved. Dry weight appears to be ~ 306 lbs -- Continue Demadex 40 mg po BID -- Monitor I&O's, daily weight -- Dietitian has provided patient education on 1500 mg / day sodium restricted diet ACUTE KIDNEY INJURY: -- Baseline creatinine has risen to 2.1. May need to accept mild increase in creatinine to maintain euvolemia and functional status -- Urine sediment is bland, patient is not proteinuric -- No acute indication for renal US at this time -- Monitor PRP PULM: -- Wheezing bilaterally. Suspect element of RAD. Pulmonology has started steroids and nebulizer treatments
--- NOTE | 2017-07-07 11:28 | Pulmonology Progress Note ---
Pulmonary Progress Note Date of Service Jul 07, 2017. Attending Dr. Yeh Subjective Patient is able to sit up in a chair today showing no signs of accessory muscle use even during our conversation. Objective Patient is doing well today she notes overall improvement in her respiratory status. VS: I/Os: -5.4L Sao2%: 91-92 FiO2: 3 L RR: 18 Resp: Decreased breath sounds but otherwise clear to auscultation Card: S1-S2 distant heart sounds unable to auscultate for murmurs rubs or gallops Abd: Obese positive bowel sounds no tenderness Ext: 2+ pitting edema bilateral lower extremities Studies WBC: 10 K Neutrophil # 7.41-elevated Platelet: 115 K VBG: (07/04/17) 7.32/70 corrected 7.36/58 Influenza a and B antibody and PCR: Negative Microbiology: Sputum 07/04/2017 and 07/05/2017: no definitive findings Overnight oximetry study 07/05/2017 o Single maximum time < 88%: 380 seconds Echocardiogram 07/04/2017 o Left ventricle: EF= 55-60%, LVH o Right ventricle: TAPSE > 1.5 cm o Left atrium: Normal size o Aortic valve: A bicuspid valve cannot be excluded o Pulmonary valve: No significant regurgitation or stenosis o Great vessels: Within normal limits o Small pericardial effusion/loculated o Grade 1 diastolic dysfunction noted Active pulmonary Medications: 1. Prednisone 40 mg daily started 07/06/2017 2. Clindamycin 300 mg t.i.d. orally 3. Levofloxacin 750 mg Q 48 hours IV 4. Arimidex 1 mg daily 5. Pantoprazole 40 mg daily 6. Nicoderm patch 21 mg 7. Xopenex/Atrovent nebulizer q.6 hours as well as q.4 hours p.r.n. 8. Dilaudid 0.5 mg q.3 hours p.r.n. pain IV Assessment & Plan 72-year-old morbidly obese female with obesity hypoventilation syndrome and chronic hypoxia: 1. Obesity Hypoventilation: During our conversation today the patient did note that she has been diagnosed with obesity hypoventilation syndrome and is treated at home with BiPAP. She does not remember her settings. I have asked the patient and the nurse to see for daughter can bring in her home unit and we can start treatment with that unit because it does have a nasal mask which the patient is more comfortable with. If we are unable to do that I have written orders to initiate BiPAP therapy at 02/27 this evening. 2.Hypoxemia: Patient does have chronic hypoxemia but is noted dramatic improvement in her overall respiratory status with her 5.4 liter diuresis since admission. Adding to her chronic heart failure is obesity hypoventilation syndrome which she has been diagnosed at [facility] and treated at an outside facility. This time I have asked the patient to bring her home CPAP unit if not will initiate BiPAP hospital equipment. Patient is currently doing well on 3 liters nasal cannula support at this time which is her baseline status. 3. Anticoagulation: Patient is currently treated with Coumadin for her chronic anticoagulation needs secondary to atrial fibrillation. Her acute on chronic hypoxemia is most likely secondary to diastolic dysfunction and obesity hypoventilation syndrome. If the patient does not optimize her oxygen status with diuresis, BiPAP support on oxygen support which could evaluate her for CTEPH secondary to breast carcinoma/invasive ductal carcinoma. If she was having chronic pulmonary emboli secondary to cancer the patient was actually require Lovenox for appropriate treatment. At this time I do suggest we obtain a V/Q scan for further evaluation. Data Medications: Current Inpatient Medications Medications (Trade) Dose Ordered Sig/Isidoro Route Start Time Stop Time Status Last Admin Dose Admin Insulin Glargine (Lantus Solostar Pen) 5 units DAILY SC 07/05/17 09:00 08/04/17 08:59 07/07/17 07:50 5 UNITS Acetaminophen (Tylenol Tab) 650 mg Q4H PRN PO 07/04/17 00:45 08/03/17 00:44 Nitroglycerin (Nitrostat Tab) 0.4 mg UD PRN SL 07/04/17 00:45 08/03/17 00:44 07/05/17 07:58 0.4 MG Insulin Aspart (novoLOG ASPART) SLIDING SCALE If C... ACHS SC 07/04/17 07:00 08/03/17 06:59 07/07/17 07:50 2 UNITS Glucose (Glucose 40% Gel) 15-30 GRAMS 15 GRAMS... UD PRN PO 07/04/17 00:45 08/03/17 00:44 Glucose (Glucose Chew Tab) 4-8 Tablets 4 Tabl... UD PRN PO 07/04/17 00:45 08/03/17 00:44 Dextrose (Dextrose 50% 50ML Syringe) 25-50ML OF 50% DW IV FOR... UD PRN IV 07/04/17 00:45 08/03/17 00:44 Glucagon (Glucagon Inj) 1 mg UD PRN SQ 07/04/17 00:45 08/03/17 00:44 Anastrozole (Arimidex Tab) 1 mg DAILY PO 07/04/17 09:00 08/03/17 08:59 07/07/17 07:52 1 MG Docusate Sodium (coLACE CAP) 100 mg DAILY PO 07/04/17 09:00 08/03/17 08:59 07/07/17 07:54 100 MG Levothyroxine Sodium (Synthroid Tab) 112 mcg DAILYBB PO 07/04/17 06:00 08/03/17 06:59 07/07/17 05:57 112 MCG Pantoprazole Sodium (Protonix Tab) 40 mg DAILY PO 07/04/17 09:00 08/03/17 08:59 07/07/17 07:53 40 MG Potassium Chloride (Klor-Con Tab) 20 meq TID PO 07/04/17 09:00 08/03/17 08:59 07/07/17 07:52 20 MEQ Rosuvastatin Calcium (Crestor Tab) 10 mg DAILY PO 07/04/17 09:00 08/03/17 08:59 07/07/17 07:53 10 MG Sertraline HCl (Zoloft Tab) 150 mg DAILY PO 07/04/17 09:00 08/03/17 08:59 07/07/17 07:51 150 MG Febuxostat (Uloric) 40 mg DAILY PO 07/04/17 09:00 08/03/17 08:59 07/07/17 07:53 40 MG Aspirin (Ecotrin Tab) 81 mg QAM PO 07/04/17 09:00 08/03/17 08:59 07/07/17 07:54 81 MG Tramadol HCl (Ultram Tab) not relieved by tylenol @ Q6H PRN PO 07/04/17 01:15 08/03/17 01:14 Hydromorphone HCl (Dilaudid Inj) 0.5 mg Q3H PRN IV 07/04/17 01:15 07/18/17 01:14 Ondansetron HCl (Zofran Inj) 4 mg Q6H PRN IV 07/04/17 01:15 08/03/17 01:14 Nicotine (Nicoderm Cq 21MG Patch) 1 patch QAM TD 07/04/17 09:00 08/03/17 08:59 07/07/17 07:53 1 PATCH Miscellaneous (Remove Nicoderm Patch) 1 ea HS N/A 07/04/17 21:00 08/03/17 20:59 07/06/17 20:47 1 EA Ipratropium [place] (Atrovent 0.02% 0.5MG/2.5ML Neb) 0.5 mg Q6R INH 07/04/17 03:00 08/03/17 02:59 07/07/17 06:57 0.5 MG Levalbuterol (Xopenex 1.25MG/ 0.5ML Neb) 1.25 mg Q6R INH 07/04/17 03:00 08/03/17 02:59 07/07/17 06:57 1.25 MG Ipratropium [place] (Atrovent 0.02% 0.5MG/2.5ML Neb) 0.5 mg Q4H PRN INH 07/04/17 01:30 08/03/17 01:29 07/05/17 08:05 0.5 MG Levalbuterol (Xopenex 1.25MG/ 0.5ML Neb) 1.25 mg Q4H PRN INH 07/04/17 01:30 08/03/17 01:29 07/05/17 08:05 1.25 MG Levofloxacin (Consult) 1 ea UD PRN N/A 07/05/17 08:30 08/04/17 08:29 Levofloxacin 750 mg/Prmx 150 ml @ 100 mls/hr Q48H IV 07/05/17 10:00 07/12/17 09:59 07/07/17 09:23 100 MLS/HR Miscellaneous Information (Order Awaiting Action) 1 ea QS N/A 07/05/17 16:00 08/04/17 15:59 Miscellaneous Information (Order Awaiting Action) 1 ea QS N/A 07/05/17 16:00 08/04/17 15:59 Clindamycin HCl (Cleocin Cap) 300 mg TID PO 07/05/17 11:00 07/12/17 10:59 07/07/17 07:54 300 MG Metoprolol Tartrate (Lopressor Tab) 25 mg TID PO 07/05/17 14:00 08/03/17 08:59 07/07/17 07:53 25 MG Pregabalin (Lyrica Cap) 150 mg BID PO 07/05/17 21:00 08/03/17 08:59 07/07/17 07:56 150 MG Torsemide (Demadex Tab) 40 mg BID17 PO 07/06/17 09:00 08/05/17 08:59 07/07/17 07:54 40 MG Spironolactone (Aldactone Tab) 25 mg QAM PO 07/06/17 09:00 08/05/17 08:59 07/07/17 07:51 25 MG Prednisone (PredniSONE TAB) 40 mg DAILY PO 07/06/17 09:00 08/05/17 08:59 07/07/17 07:52 40 MG Vital Signs: Date Time Temp Pulse Resp B/P (MAP) Pulse Ox O2 Delivery O2 Flow Rate FiO2 07/07/17 08:00 Nasal Cannula 07/07/17 07:29 36.8 97 18 122/77 (92) 92 3.0 07/07/17 06:59 91 18 91 Nasal Cannula 3.0 07/07/17 04:00 Nasal Cannula 3.0 07/07/17 00:00 Nasal Cannula 3.0 07/06/17 23:20 36.4 84 20 102/67 (79) 91 BiPAP 07/06/17 22:32 92 94 07/06/17 20:00 Nasal Cannula 3.0 07/06/17 19:55 36.5 89 16 124/76 (92) 91 Nasal Cannula 3.0 07/06/17 19:01 81 18 93 Nasal Cannula 3.0 07/06/17 16:00 Nasal Cannula 3.0 07/06/17 15:48 36.3 98 20 121/78 (92) 92 Nasal Cannula 3.0 07/06/17 14:11 82 18 93 Nasal Cannula 3.0 07/06/17 12:00 Nasal Cannula 3.0 07/06/17 11:31 36.5 78 19 119/69 (86) 93 Nasal Cannula 3.0 Laboratory Results: Last 24 Hours Test 07/06/17 16:26 07/06/17 20:16 07/07/17 05:22 07/07/17 07:14 Bedside Glucose 138 mg/dl 173 mg/dl 92 mg/dl White Blood Count 10.34 K/uL Red Blood Count 5.97 M/uL Hemoglobin 15.0 g/dL Hematocrit 46.4 % Mean Corpuscular Volume 77.7 fL Mean Corpuscular Hemoglobin 25.1 pg Mean Corpuscular Hemoglobin Concent 32.3 g/dl Platelet Count 115 K/uL Neutrophils (%) (Auto) 71.7 % Lymphocytes (%) (Auto) 16.5 % Monocytes (%) (Auto) 11.0 % Eosinophils (%) (Auto) 0.3 % Basophils (%) (Auto) 0.1 % Neutrophils # (Auto) 7.41 K/uL Lymphocytes # (Auto) 1.71 K/uL Monocytes # (Auto) 1.14 K/uL Eosinophils # (Auto) 0.03 K/uL Basophils # (Auto) 0.01 K/uL RDW Standard Deviation 53.5 fL RDW Coefficient of Variation 19.1 % Immature Granulocyte % (Auto) 0.4 % Immature Granulocyte # (Auto) 0.04 K/uL Platelet Estimate DECREASED Prothrombin Time 30.7 SECONDS Prothromb Time International Ratio 2.8 Sodium Level 138 mmol/L Potassium Level 3.7 mmol/L Chloride Level 100 mmol/L Carbon Dioxide Level 30 mmol/L Anion Gap 8.0 mmol/L Blood Urea Nitrogen 86 mg/dl Creatinine 2.08 mg/dl Est Creatinine Clear Calc Drug Dose 33.6 ml/min Estimated GFR () 26.7 Estimated GFR (Non- 23.0 BUN/Creatinine Ratio 41.4 Random Glucose 97 mg/dl Calcium Level 8.5 mg/dl
[2017-07-07 11:37] VITALS: BP 94/62; PULSE 88; TEMP 36.9; O2SAT 92
--- NOTE | 2017-07-07 15:20 | DIAGNOSTIC IMAGING REPORT ---
LUNG IMAGING VQ HISTORY: Assess for chronic thromboembolic pulmonary hypertension. Short of breath. TECHNIQUE: Immediately following the intravenous administration of 32 mCi of technetium 99 M DTPA and the intravenous injection of 5.4 mCi of technetium 99m MAA, anterior, posterior, oblique, and lateral views the chest performed for the ventilation and perfusion scan, respectively. COMPARISON STUDY: Chest 07/05/2017. FINDINGS: Mild elevation the right hemidiaphragm with Venkata of the cardiac silhouette. No segmental or mismatched defects identified on the perfusion scan. Heterogeneous ventilation of the lungs suggestive of emphysema. IMPRESSION: 1. Above findings are consistent with a very low probability scan. No perfusion defects identified. 2. Heterogeneous appearance to the lungs on the ventilation scan suggests emphysema. Electronically signed by: Pj Ramirez M.D. 07/07/2017 3:19 PM Dictated Date/Time: 07/07/2017 3:13 PM
--- NOTE | 2017-07-07 15:29 | PROGRESS NOTE ---
DATE: 07/07/2017 FOLLOWUP VISIT SUBJECTIVE: The patient is a 72-year-old with a history of chronic right heart failure due to hypoventilation syndrome and sleep apnea. The patient has been followed by Dr. Fernandez in [place] for many years and is actually a personal friend of his. She has been utilizing the [facility] CPAP machine at night, which is uncomfortable for her and she is waiting to have her family bring in her machine from home. OBJECTIVE: GENERAL: She is alert and oriented, in no acute distress. VITAL SIGNS: Blood pressure is 100/60, pulse is regular at 88 beats per minute. She is afebrile. HEENT: She is normocephalic. Pupils are equal and reactive to light. Extraocular muscles are intact bilaterally. NECK: The neck veins are flat. Carotids have good upstrokes bilaterally without bruits. Thyroid is nonpalpable. RESPIRATORY: Breath sounds equal bilaterally and clear to auscultation. CARDIOVASCULAR: Heart has an irregular rhythm. Normal S1, S2. No S3, S4. No cardiac rubs or murmurs. GASTROINTESTINAL: Abdomen is soft, nontender without organomegaly. EXTREMITIES: Free of edema, digit clubbing, or cyanosis. NEUROLOGIC: Grossly intact. SKIN: Warm to touch. LYMPH NODES: Negative to palpation. LABORATORY DATA: Hemoglobin is 15. She is currently in a controlled atrial flutter on the telemetry. IMPRESSION: 1. Acute on chronic decompensated right heart failure. 2. Obesity hypoventilation syndrome with sleep apnea. 3. Atrial flutter. 4. History of previous coronary artery bypass surgery with chronic angina. 5. Diabetes. 6. Hypertension. 7. Dyslipidemia. RECOMMENDATIONS: I think medical management is indicated in this patient. I would continue her diuretics and it is important that she has her CPAP at night. I suspect no additional cardiac testing at this time.
--- NOTE | 2017-07-07 15:29 | DIAGNOSTIC IMAGING REPORT ---
CHEST 2 VIEWS ROUTINE HISTORY: Possible chronic thromboembolic disease. Hypertension. FOR V/Q SCAN COMPARISON: Chest 07/05/2017. FINDINGS: The lungs are hyperexpanded with mild apical predominant emphysema is changes. There is mild diffuse interstitial thickening and mild cardiomegaly which has improved. There are poststernotomy changes. No pleural effusions. No pneumothorax. IMPRESSION: 1. Mild emphysema. 2. Improvement in the interstitial thickening suggesting resolving congestive change. Electronically signed by: Pj Ramirez M.D. 07/07/2017 3:28 PM Dictated Date/Time: 07/07/2017 3:26 PM
[2017-07-07 16:00] VITALS: BP 108/69; PULSE 81; TEMP 36.5; O2SAT 92
[2017-07-07 19:00] VITALS: BP 111/62; PULSE 97; TEMP 36.8; O2SAT 93
[2017-07-07 19:13] VITALS: PULSE 80; O2SAT 94
--- NOTE | 2017-07-07 19:27 | Progress Note ---
Medicine Progress Note Date & Time of Visit: Jul 07, 2017 at 19:24. Subjective seen resting in chair, comfortable states she feels improved again today denies chest pain, dyspnea, palpitations no leg pain breathing improving, occasional dry cough no other symptoms Objective Last 8 Hrs Date Time Temp Pulse Resp B/P (MAP) Pulse Ox O2 Delivery O2 Flow Rate FiO2 07/07/17 19:13 80 18 94 Nasal Cannula 3.0 07/07/17 19:00 36.8 97 22 111/62 (78) 93 Nasal Cannula 3.0 07/07/17 16:00 36.5 81 22 108/69 (82) 92 Nasal Cannula 3.0 07/07/17 16:00 Nasal Cannula 07/07/17 11:37 36.9 88 20 94/62 (73) 92 3.0 07/07/17 11:26 Nasal Cannula Physical Exam: General- oriented x 3, not in distress, speaks in sentences with no effort Eyes- anicteric Neck- no JVD Lungs- faint scattered wheeze bilaterally, mild basilar rales Heart-normal rate, irregularly irregular rhythm, no murmurs Abdomen- normal bowel sounds, soft, nontender Extremities- (+) mild edema of the bilateral lower legs, no warmth, no tenderness Neuro- alert, oriented x 3; PERRL, EOMI; no facial palsy; no dysarthria; motor 5 /5 bilaterally; no gross focal deficits Skin- warm & dry Laboratory Results: Last 24 Hours Test 07/06/17 20:16 07/07/17 05:22 07/07/17 07:14 07/07/17 11:28 Bedside Glucose 173 mg/dl 92 mg/dl 121 mg/dl White Blood Count 10.34 K/uL Red Blood Count 5.97 M/uL Hemoglobin 15.0 g/dL Hematocrit 46.4 % Mean Corpuscular Volume 77.7 fL Mean Corpuscular Hemoglobin 25.1 pg Mean Corpuscular Hemoglobin Concent 32.3 g/dl Platelet Count 115 K/uL Neutrophils (%) (Auto) 71.7 % Lymphocytes (%) (Auto) 16.5 % Monocytes (%) (Auto) 11.0 % Eosinophils (%) (Auto) 0.3 % Basophils (%) (Auto) 0.1 % Neutrophils # (Auto) 7.41 K/uL Lymphocytes # (Auto) 1.71 K/uL Monocytes # (Auto) 1.14 K/uL Eosinophils # (Auto) 0.03 K/uL Basophils # (Auto) 0.01 K/uL RDW Standard Deviation 53.5 fL RDW Coefficient of Variation 19.1 % Immature Granulocyte % (Auto) 0.4 % Immature Granulocyte # (Auto) 0.04 K/uL Platelet Estimate DECREASED Prothrombin Time 30.7 SECONDS Prothromb Time International Ratio 2.8 Sodium Level 138 mmol/L Potassium Level 3.7 mmol/L Chloride Level 100 mmol/L Carbon Dioxide Level 30 mmol/L Anion Gap 8.0 mmol/L Blood Urea Nitrogen 86 mg/dl Creatinine 2.08 mg/dl Est Creatinine Clear Calc Drug Dose 33.6 ml/min Estimated GFR () 26.7 Estimated GFR (Non- 23.0 BUN/Creatinine Ratio 41.4 Random Glucose 97 mg/dl Calcium Level 8.5 mg/dl Test 07/07/17 16:18 Bedside Glucose 171 mg/dl Assessment & Plan 72 / F with history of Chronic Respiratory Failure on home O2, CAD/CABG, HTN, CKD 3, ACUTE ON CHRONIC HYPOXIC RESPIRATORY FAILURE LIKELY FROM COPD EXACERBATION FROM ACUTE BRONCHITIS, POSSIBLE BILATERAL LOWER LOBE PNEUMONIA VS. ASPIRATION - 07/05: increased wheezing resumed Prednisone 40mg po daily Levaquin added to Clinda continued Levalbuterol/Ipratropium q4h and PRN continued Dulera and Tudorza CPAP ordered - improving daily appreciate Pulm SVC recommendations ACUTE ON CHRONIC DIASTOLIC CHF EXACERBATION ? - CXR no pulmonary edema BNP normal - (+) leg edema Nephro consulted on Lasix 80mg IV--> transitioned to Torsemide and Spironolactone continues to diurese well appreciate Nephro and Cardio SVC recommendations CHEST PAIN, ANGINA FROM HTN URGENCY? HISTORY OF CAD/CABG/STENT - EKG a flutter rate controlled cardiac markers negative - ECHO: Normal LV chamber size with mild concentric LVH. * Normal LV systolic function, abnormal septal wall motion consistent with post-operative state, EF 55-60%. * Grade I diastolic dysfunction. * A bicuspid aortic valve cannot be excluded. Mildly calcified. Trace aortic regurgitation. No hemodynamically significant valvular aortic stenosis. -- resolved with 1 nitro already on Coumadin Aspirin, Statin -- from HTN urgency secondary to COPD exacerbation? BP 160s --> 90s, chest pain resolved -- Cardiology consulted, appreciate the recommendations LEFT LOWER EXTREMITY EDEMA - chronic as per patient increased lately - Doppler US: negative - management as noted above - component of Cellulitis? on Clindamycin PARESTHESIAS, DIGIT4 AND 5, RIGHT - likely Ulnar Nerve unvolvement - may need EMG as outpatient CAD/CABG -- management as noted above ATRIAL FLUTTER -- INR 2.8 hold coumadin for today INR daily Hypertension - continue Metoprolol, usually on 37.5mg po daily, now on 25mg BID CKD 3 - records requested from PCP - baseline crea 0.68 per outside records crea at 2.1, monitor crea while on Lasix Breast cancer, left, status post surgery, radiation, ongoing hormone therapy. Ongoing tobacco abuse. - Nicotine Patch JONATHON - CPAP DVT proph Coumadin INR2.8 Dispo pending lives at home with daughter PT/OT anticipate d/c home when medically stable Current Inpatient Medications: Current Inpatient Medications Medications (Trade) Dose Ordered Sig/Isidoro Route Start Time Stop Time Status Last Admin Dose Admin Insulin Glargine (Lantus Solostar Pen) 5 units DAILY SC 07/05/17 09:00 08/04/17 08:59 07/07/17 07:50 5 UNITS Acetaminophen (Tylenol Tab) 650 mg Q4H PRN PO 07/04/17 00:45 08/03/17 00:44 Nitroglycerin (Nitrostat Tab) 0.4 mg UD PRN SL 07/04/17 00:45 08/03/17 00:44 07/05/17 07:58 0.4 MG Insulin Aspart (novoLOG ASPART) SLIDING SCALE If C... ACHS SC 07/04/17 07:00 08/03/17 06:59 07/07/17 17:06 5 UNITS Glucose (Glucose 40% Gel) 15-30 GRAMS 15 GRAMS... UD PRN PO 07/04/17 00:45 08/03/17 00:44 Glucose (Glucose Chew Tab) 4-8 Tablets 4 Tabl... UD PRN PO 07/04/17 00:45 08/03/17 00:44 Dextrose (Dextrose 50% 50ML Syringe) 25-50ML OF 50% DW IV FOR... UD PRN IV 07/04/17 00:45 08/03/17 00:44 Glucagon (Glucagon Inj) 1 mg UD PRN SQ 07/04/17 00:45 08/03/17 00:44 Anastrozole (Arimidex Tab) 1 mg DAILY PO 07/04/17 09:00 08/03/17 08:59 07/07/17 07:52 1 MG Docusate Sodium (coLACE CAP) 100 mg DAILY PO 07/04/17 09:00 08/03/17 08:59 07/07/17 07:54 100 MG Levothyroxine Sodium (Synthroid Tab) 112 mcg DAILYBB PO 07/04/17 06:00 08/03/17 06:59 07/07/17 05:57 112 MCG Pantoprazole Sodium (Protonix Tab) 40 mg DAILY PO 07/04/17 09:00 08/03/17 08:59 07/07/17 07:53 40 MG Potassium Chloride (Klor-Con Tab) 20 meq TID PO 07/04/17 09:00 08/03/17 08:59 07/07/17 15:29 20 MEQ Rosuvastatin Calcium (Crestor Tab) 10 mg DAILY PO 07/04/17 09:00 08/03/17 08:59 07/07/17 07:53 10 MG Sertraline HCl (Zoloft Tab) 150 mg DAILY PO 07/04/17 09:00 08/03/17 08:59 07/07/17 07:51 150 MG Febuxostat (Uloric) 40 mg DAILY PO 07/04/17 09:00 08/03/17 08:59 07/07/17 07:53 40 MG Aspirin (Ecotrin Tab) 81 mg QAM PO 07/04/17 09:00 08/03/17 08:59 07/07/17 07:54 81 MG Tramadol HCl (Ultram Tab) not relieved by tylenol @ Q6H PRN PO 07/04/17 01:15 08/03/17 01:14 Hydromorphone HCl (Dilaudid Inj) 0.5 mg Q3H PRN IV 07/04/17 01:15 07/18/17 01:14 Ondansetron HCl (Zofran Inj) 4 mg Q6H PRN IV 07/04/17 01:15 08/03/17 01:14 Nicotine (Nicoderm Cq 21MG Patch) 1 patch QAM TD 07/04/17 09:00 08/03/17 08:59 07/07/17 07:53 1 PATCH Miscellaneous (Remove Nicoderm Patch) 1 ea HS N/A 07/04/17 21:00 08/03/17 20:59 07/06/17 20:47 1 EA Ipratropium [place] (Atrovent 0.02% 0.5MG/2.5ML Neb) 0.5 mg Q6R INH 07/04/17 03:00 08/03/17 02:59 07/07/17 19:10 0.5 MG Levalbuterol (Xopenex 1.25MG/ 0.5ML Neb) 1.25 mg Q6R INH 07/04/17 03:00 08/03/17 02:59 07/07/17 19:11 1.25 MG Ipratropium [place] (Atrovent 0.02% 0.5MG/2.5ML Neb) 0.5 mg Q4H PRN INH 07/04/17 01:30 08/03/17 01:29 07/05/17 08:05 0.5 MG Levalbuterol (Xopenex 1.25MG/ 0.5ML Neb) 1.25 mg Q4H PRN INH 07/04/17 01:30 08/03/17 01:29 07/05/17 08:05 1.25 MG Levofloxacin (Consult) 1 ea UD PRN N/A 07/05/17 08:30 08/04/17 08:29 Levofloxacin 750 mg/Prmx 150 ml @ 100 mls/hr Q48H IV 07/05/17 10:00 07/12/17 09:59 07/07/17 09:23 100 MLS/HR Miscellaneous Information (Order Awaiting Action) 1 ea QS N/A 07/05/17 16:00 08/04/17 15:59 Miscellaneous Information (Order Awaiting Action) 1 ea QS N/A 07/05/17 16:00 08/04/17 15:59 Clindamycin HCl (Cleocin Cap) 300 mg TID PO 07/05/17 11:00 07/12/17 10:59 07/07/17 15:29 300 MG Metoprolol Tartrate (Lopressor Tab) 25 mg TID PO 07/05/17 14:00 08/03/17 08:59 07/07/17 15:30 25 MG Pregabalin (Lyrica Cap) 150 mg BID PO 07/05/17 21:00 08/03/17 08:59 07/07/17 07:56 150 MG Torsemide (Demadex Tab) 40 mg BID17 PO 07/06/17 09:00 08/05/17 08:59 07/07/17 16:11 40 MG Spironolactone (Aldactone Tab) 25 mg QAM PO 07/06/17 09:00 08/05/17 08:59 07/07/17 07:51 25 MG Prednisone (PredniSONE TAB) 40 mg DAILY PO 07/06/17 09:00 08/05/17 08:59 07/07/17 07:52 40 MG
[2017-07-07] MEDS: MOMETASONE FUROATE FORMOTEROL INH SCH (21:39)
[2017-07-07] MEDS: ACLIDINIUM BROMIDE INH SCH (21:39)
[2017-07-08] VITALS (12 sets, daily range): BP systolic 93–134; BP diastolic 54–90; PULSE 73–89; TEMP 36.5–37; O2SAT 91–97
[2017-07-08] MEDS: LEVALBUTEROL 1.25MG/0.5ML NEB INH SCH ×4 (02:12→19:31)
[2017-07-08] MEDS: IPRATROPIUM BROMIDE NEB SOLN 0.02% 2.5 ML VIAL INH SCH ×4 (02:12→19:31)
[2017-07-08] MEDS: LEVOTHYROXINE 112 MCG TAB PO SCH (05:24)
[2017-07-08 07:00] LABS: INR 1.9 (0.9-1.1); PROTHROMBIN TIME (PATIENT) 20.6 SECONDS (9.0-12.0)
[2017-07-08 07:19] LABS: CALCIUM 8.2 mg/dl (8.5-10.1); CREATININE 2.39 mg/dl (0.60-1.20); POTASSIUM 4.1 mmol/L (3.5-5.1)
[2017-07-08] MEDS: INSULIN ASPART 100 UNITS/ML 3 ML PEN SC SCH ×5 (07:54→21:58)
[2017-07-08] MEDS: MOMETASONE FUROATE FORMOTEROL INH SCH ×2 (07:55→22:01)
[2017-07-08] MEDS: ACLIDINIUM BROMIDE INH SCH ×2 (07:55→22:01)
[2017-07-08] MEDS: NICOTINE 21 MG/24 HR TDSY TD SCH (07:56)
[2017-07-08] MEDS: METOPROLOL TARTRATE 25 MG TAB PO SCH ×4 (09:00→22:02)
--- NOTE | 2017-07-08 10:06 | Pulmonology Progress Note ---
Pulmonary Progress Note Date of Service Jul 08, 2017. Attending Dr. Greco Subjective Patient seen and examined this morning. She is out of bed to chair. She states that she is feeling better from a respiratory standpoint. She denies any chest pain, shortness of breath. She still has cough with productive yellowish sputum. She denies any hemoptysis. She slept well overnight. She is currently NPO for barium swallow. Objective VS reviewed. Tm 36.9, BP 94/54-102/59, P 81-89, SaO2 92-95% on 2-3L NC. Currently 6.7L negative since admission. Gen: AAOx3, NAD, speaking in full sentences without use of accessory muscles of respiration. Resp: Decreased breath sounds but otherwise clear to auscultation CVS: S1-S2 distant heart sounds, no MRG appreciated Abd: Obese, positive bowel sounds, no tenderness, nondistended Ext: 2+ pitting edema bilateral lower extremities L>>R. No clubbing, no cyanosis. Labs reviewed. No new labs today. Imaging viewed and reviewed by me. CHEST 2 VIEWS ROUTINE 07/07/2017 HISTORY: Possible chronic thromboembolic disease. Hypertension. FOR V/Q SCAN COMPARISON: Chest 07/05/2017. FINDINGS: The lungs are hyperexpanded with mild apical predominant emphysema is changes. There is mild diffuse interstitial thickening and mild cardiomegaly which has improved. There are poststernotomy changes. No pleural effusions. No pneumothorax. IMPRESSION: 1. Mild emphysema. 2. Improvement in the interstitial thickening suggesting resolving congestive change. VQ scan 07/07/2017 Low probability for pulmonary embolism. Heterogenous appearance on ventilation suggestive of emphysema. Previous studies. VBG: (07/04/17) 7.32/70 corrected 7.36/58 Influenza a and B antibody and PCR: Negative Microbiology: Sputum 07/04/2017 and 07/05/2017: no definitive findings Overnight oximetry study 07/05/2017 o Single maximum time < 88%: 380 seconds Echocardiogram 07/04/2017 o Left ventricle: EF= 55-60%, LVH o Right ventricle: TAPSE > 1.5 cm o Left atrium: Normal size o Aortic valve: A bicuspid valve cannot be excluded o Pulmonary valve: No significant regurgitation or stenosis o Great vessels: Within normal limits o Small pericardial effusion/loculated o Grade 1 diastolic dysfunction noted Active pulmonary Medications: 1. Prednisone 40 mg daily started 07/06/2017 2. Clindamycin 300 mg t.i.d. orally 3. Levofloxacin 750 mg Q 48 hours IV 4. Arimidex 1 mg daily 5. Pantoprazole 40 mg daily 6. Nicoderm patch 21 mg 7. Xopenex/Atrovent nebulizer q.6 hours as well as q.4 hours p.r.n. 8. Dilaudid 0.5 mg q.3 hours p.r.n. pain IV 9. Aclinidium 1 puff BID 10. Mometasone/Formoterol 1 puff BID Assessment & Plan Chronic hypoxemic respiratory failure. JONATHON. Obesity hypoventilation syndrome. Diastolic CHF. Atrial fibrillation. Patient appears to be back at baseline from a respiratory standpoint. VQ scan to rule out CTEPH is low probability for PE, therefore I will forgo switching to Lovenox. She should continue with anticoagulation for atrial fibrillation. She is on her baseline supplemental oxygen of 3 L and saturating well. Recommend that she continue daughter bring in home unit so that we can patient' s nasal mask. Otherwise, she should be on BIPAP at night with setting 12/7, 30% FIO2, RR 12. Continue with diuresis and renal function tolerates. Continue with inhalers. Follow up Barium swallow to rule out silent aspiration as cause for hypoxemia. I will sign of case today. Please contact me if you have any other questions or concerns. She should follow up in pulmonary clinic within two weeks of hospital discharge. Data Medications: Current Inpatient Medications Medications (Trade) Dose Ordered Sig/Isidoro Route Start Time Stop Time Status Last Admin Dose Admin Insulin Glargine (Lantus Solostar Pen) 5 units DAILY SC 07/05/17 09:00 08/04/17 08:59 07/07/17 07:50 5 UNITS Acetaminophen (Tylenol Tab) 650 mg Q4H PRN PO 07/04/17 00:45 08/03/17 00:44 Nitroglycerin (Nitrostat Tab) 0.4 mg UD PRN SL 07/04/17 00:45 08/03/17 00:44 07/05/17 07:58 0.4 MG Insulin Aspart (novoLOG ASPART) SLIDING SCALE If C... ACHS SC 07/04/17 07:00 08/03/17 06:59 07/07/17 17:06 5 UNITS Glucose (Glucose 40% Gel) 15-30 GRAMS 15 GRAMS... UD PRN PO 07/04/17 00:45 08/03/17 00:44 Glucose (Glucose Chew Tab) 4-8 Tablets 4 Tabl... UD PRN PO 07/04/17 00:45 08/03/17 00:44 Dextrose (Dextrose 50% 50ML Syringe) 25-50ML OF 50% DW IV FOR... UD PRN IV 07/04/17 00:45 08/03/17 00:44 Glucagon (Glucagon Inj) 1 mg UD PRN SQ 07/04/17 00:45 08/03/17 00:44 Anastrozole (Arimidex Tab) 1 mg DAILY PO 07/04/17 09:00 08/03/17 08:59 07/07/17 07:52 1 MG Docusate Sodium (coLACE CAP) 100 mg DAILY PO 07/04/17 09:00 08/03/17 08:59 07/07/17 07:54 100 MG Levothyroxine Sodium (Synthroid Tab) 112 mcg DAILYBB PO 07/04/17 06:00 08/03/17 06:59 07/08/17 05:24 112 MCG Pantoprazole Sodium (Protonix Tab) 40 mg DAILY PO 07/04/17 09:00 08/03/17 08:59 07/07/17 07:53 40 MG Potassium Chloride (Klor-Con Tab) 20 meq TID PO 07/04/17 09:00 08/03/17 08:59 07/07/17 20:45 20 MEQ Rosuvastatin Calcium (Crestor Tab) 10 mg DAILY PO 07/04/17 09:00 08/03/17 08:59 07/07/17 07:53 10 MG Sertraline HCl (Zoloft Tab) 150 mg DAILY PO 07/04/17 09:00 08/03/17 08:59 07/07/17 07:51 150 MG Febuxostat (Uloric) 40 mg DAILY PO 07/04/17 09:00 08/03/17 08:59 07/07/17 07:53 40 MG Aspirin (Ecotrin Tab) 81 mg QAM PO 07/04/17 09:00 08/03/17 08:59 07/07/17 07:54 81 MG Tramadol HCl (Ultram Tab) not relieved by tylenol @ Q6H PRN PO 07/04/17 01:15 08/03/17 01:14 Hydromorphone HCl (Dilaudid Inj) 0.5 mg Q3H PRN IV 07/04/17 01:15 07/18/17 01:14 Ondansetron HCl (Zofran Inj) 4 mg Q6H PRN IV 07/04/17 01:15 08/03/17 01:14 Nicotine (Nicoderm Cq 21MG Patch) 1 patch QAM TD 07/04/17 09:00 08/03/17 08:59 07/08/17 07:56 1 PATCH Miscellaneous (Remove Nicoderm Patch) 1 ea HS N/A 07/04/17 21:00 08/03/17 20:59 07/07/17 21:00 1 EA Ipratropium [place] (Atrovent 0.02% 0.5MG/2.5ML Neb) 0.5 mg Q6R INH 07/04/17 03:00 08/03/17 02:59 07/08/17 07:04 0.5 MG Levalbuterol (Xopenex 1.25MG/ 0.5ML Neb) 1.25 mg Q6R INH 07/04/17 03:00 08/03/17 02:59 07/08/17 07:04 1.25 MG Ipratropium [place] (Atrovent 0.02% 0.5MG/2.5ML Neb) 0.5 mg Q4H PRN INH 07/04/17 01:30 08/03/17 01:29 07/05/17 08:05 0.5 MG Levalbuterol (Xopenex 1.25MG/ 0.5ML Neb) 1.25 mg Q4H PRN INH 07/04/17 01:30 08/03/17 01:29 07/05/17 08:05 1.25 MG Levofloxacin (Consult) 1 ea UD PRN N/A 07/05/17 08:30 08/04/17 08:29 Levofloxacin 750 mg/Prmx 150 ml @ 100 mls/hr Q48H IV 07/05/17 10:00 07/12/17 09:59 07/07/17 09:23 100 MLS/HR Clindamycin HCl (Cleocin Cap) 300 mg TID PO 07/05/17 11:00 07/12/17 10:59 07/07/17 20:45 300 MG Metoprolol Tartrate (Lopressor Tab) 25 mg TID PO 07/05/17 14:00 08/03/17 08:59 07/07/17 20:45 25 MG Pregabalin (Lyrica Cap) 150 mg BID PO 07/05/17 21:00 08/03/17 08:59 07/07/17 20:45 150 MG Torsemide (Demadex Tab) 40 mg BID17 PO 07/06/17 09:00 08/05/17 08:59 07/07/17 16:11 40 MG Spironolactone (Aldactone Tab) 25 mg QAM PO 07/06/17 09:00 08/05/17 08:59 07/07/17 07:51 25 MG Prednisone (PredniSONE TAB) 40 mg DAILY PO 07/06/17 09:00 08/05/17 08:59 07/07/17 07:52 40 MG Mometasone Furoate/ Formoterol Fumar (Dulera) 1 ea BID INH 07/07/17 21:00 08/06/17 20:59 07/08/17 07:55 1 EA Vital Signs: Date Time Temp Pulse Resp B/P (MAP) Pulse Ox O2 Delivery O2 Flow Rate FiO2 07/08/17 08:03 36.9 84 18 94/54 (67) 94 Nasal Cannula 3.0 102/84 (90) 07/08/17 08:00 Nasal Cannula 07/08/17 07:04 81 18 95 Nasal Cannula 2.0 07/08/17 04:00 Nasal Cannula 3.0 07/08/17 03:55 36.9 86 16 109/90 (96) 94 Nasal Cannula 3.0 Humidified Oxygen 07/08/17 00:21 36.8 89 18 99/64 (76) 92 Nasal Cannula 3.0 07/08/17 00:00 Nasal Cannula 3.0 07/07/17 20:00 Nasal Cannula 3.0 07/07/17 19:13 80 18 94 Nasal Cannula 3.0 07/07/17 19:00 36.8 97 22 111/62 (78) 93 Nasal Cannula 3.0 07/07/17 16:00 36.5 81 22 108/69 (82) 92 Nasal Cannula 3.0 07/07/17 16:00 Nasal Cannula 07/07/17 11:37 36.9 88 20 94/62 (73) 92 3.0 07/07/17 11:26 Nasal Cannula Laboratory Results: Last 24 Hours Test 07/07/17 11:28 07/07/17 16:18 07/07/17 20:27 07/08/17 06:22 Bedside Glucose 121 mg/dl 171 mg/dl 173 mg/dl Prothrombin Time 20.6 SECONDS Prothromb Time International Ratio 1.9 Sodium Level 139 mmol/L Potassium Level 4.1 mmol/L Chloride Level 100 mmol/L Carbon Dioxide Level 32 mmol/L Anion Gap 7.0 mmol/L Blood Urea Nitrogen 91 mg/dl Creatinine 2.39 mg/dl Est Creatinine Clear Calc Drug Dose 29.2 ml/min Estimated GFR () 22.6 Estimated GFR (Non- 19.5 BUN/Creatinine Ratio 38.0 Random Glucose 90 mg/dl Calcium Level 8.2 mg/dl Test 07/08/17 06:39 Bedside Glucose 94 mg/dl
--- NOTE | 2017-07-08 10:09 | Nephrology Progress Note ---
Nephrology Progress Note Date of Service Jul 08, 2017. Chief Complaint Follow-up for acute kidney injury with history of chronic kidney disease. Helga Hollingsworth was seen and examined in her room this morning. She has been sitting in the chair, denies any shortness of breath or chest pain. Renal function worsened to creatinine 2.4, electrolyte acceptable. Continues to be net negative more than 1 liter per 24 hours. Review of Systems A complete review of systems was performed. Pertinent positives are noted above. All other systems are negative. Vital Signs Last 8 Hrs Date Time Temp Pulse Resp B/P (MAP) Pulse Ox O2 Delivery O2 Flow Rate FiO2 07/08/17 08:03 36.9 84 18 94/54 (67) 94 Nasal Cannula 3.0 102/84 (90) 07/08/17 08:00 Nasal Cannula 07/08/17 07:04 81 18 95 Nasal Cannula 2.0 07/08/17 04:00 Nasal Cannula 3.0 07/08/17 03:55 36.9 86 16 109/90 (96) 94 Nasal Cannula 3.0 Humidified Oxygen Last Recorded Weight Weight (Kilograms): 138.400 Physical Exam GENERAL: , AAA x 3, pleasant, healthy-appearing, not in any distress. NECK: Supple, no JVD. RESPIRATORY: Occasional wheezes and crackles bilaterally at bases. CARDIOVASCULAR: S1, S2 normal, rate rhythm regular. EXTREMITY: 1+ bilateral lower extremity edema NEURO: speech fluent. PSYCHIATRY: Normal mood and judgment Family History Patient reports no known family medical history. Negative for CKD/ESRD Social History Marital Status: Occupation: retired . Lives in [place], [place]. Retired. 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 H/o tobacco use 1.5 ppd. Patient denies alcohol use. Laboratory Results Past 24 Hours 07/08/17 06:22 Test 07/07/17 11:28 07/07/17 16:18 07/07/17 20:27 07/08/17 06:22 Bedside Glucose 121 mg/dl (70-90) 171 mg/dl (70-90) 173 mg/dl (70-90) Prothrombin Time 20.6 SECONDS (9.0-12.0) Prothromb Time International Ratio 1.9 (0.9-1.1) Anion Gap 7.0 mmol/L (3-11) Est Creatinine Clear Calc Drug Dose 29.2 ml/min Estimated GFR () 22.6 Estimated GFR (Non- 19.5 BUN/Creatinine Ratio 38.0 (10-20) Calcium Level 8.2 mg/dl (8.5-10.1) Test 07/08/17 06:39 Bedside Glucose 94 mg/dl (70-90) Allergies Coded Allergies: Melatonin (Verified Allergy, Severe, RASH, 07/03/17) Penicillins (Verified Allergy, Unknown, UNLNOWN, 01/20/16) Medications Current Inpatient Medications Medications (Trade) Dose Ordered Sig/Isidoro Route Start Time Stop Time Status Last Admin Dose Admin Insulin Glargine (Lantus Solostar Pen) 5 units DAILY SC 07/05/17 09:00 08/04/17 08:59 07/07/17 07:50 5 UNITS Acetaminophen (Tylenol Tab) 650 mg Q4H PRN PO 07/04/17 00:45 08/03/17 00:44 Nitroglycerin (Nitrostat Tab) 0.4 mg UD PRN SL 07/04/17 00:45 08/03/17 00:44 07/05/17 07:58 0.4 MG Insulin Aspart (novoLOG ASPART) SLIDING SCALE If C... ACHS SC 07/04/17 07:00 08/03/17 06:59 07/07/17 17:06 5 UNITS Glucose (Glucose 40% Gel) 15-30 GRAMS 15 GRAMS... UD PRN PO 07/04/17 00:45 08/03/17 00:44 Glucose (Glucose Chew Tab) 4-8 Tablets 4 Tabl... UD PRN PO 07/04/17 00:45 08/03/17 00:44 Dextrose (Dextrose 50% 50ML Syringe) 25-50ML OF 50% DW IV FOR... UD PRN IV 07/04/17 00:45 08/03/17 00:44 Glucagon (Glucagon Inj) 1 mg UD PRN SQ 07/04/17 00:45 08/03/17 00:44 Anastrozole (Arimidex Tab) 1 mg DAILY PO 07/04/17 09:00 08/03/17 08:59 07/07/17 07:52 1 MG Docusate Sodium (coLACE CAP) 100 mg DAILY PO 07/04/17 09:00 08/03/17 08:59 07/07/17 07:54 100 MG Levothyroxine Sodium (Synthroid Tab) 112 mcg DAILYBB PO 07/04/17 06:00 08/03/17 06:59 07/08/17 05:24 112 MCG Pantoprazole Sodium (Protonix Tab) 40 mg DAILY PO 07/04/17 09:00 08/03/17 08:59 07/07/17 07:53 40 MG Potassium Chloride (Klor-Con Tab) 20 meq TID PO 07/04/17 09:00 08/03/17 08:59 07/07/17 20:45 20 MEQ Rosuvastatin Calcium (Crestor Tab) 10 mg DAILY PO 07/04/17 09:00 08/03/17 08:59 07/07/17 07:53 10 MG Sertraline HCl (Zoloft Tab) 150 mg DAILY PO 07/04/17 09:00 08/03/17 08:59 07/07/17 07:51 150 MG Febuxostat (Uloric) 40 mg DAILY PO 07/04/17 09:00 08/03/17 08:59 07/07/17 07:53 40 MG Aspirin (Ecotrin Tab) 81 mg QAM PO 07/04/17 09:00 08/03/17 08:59 07/07/17 07:54 81 MG Tramadol HCl (Ultram Tab) not relieved by tylenol @ Q6H PRN PO 07/04/17 01:15 08/03/17 01:14 Hydromorphone HCl (Dilaudid Inj) 0.5 mg Q3H PRN IV 07/04/17 01:15 07/18/17 01:14 Ondansetron HCl (Zofran Inj) 4 mg Q6H PRN IV 07/04/17 01:15 08/03/17 01:14 Nicotine (Nicoderm Cq 21MG Patch) 1 patch QAM TD 07/04/17 09:00 08/03/17 08:59 07/08/17 07:56 1 PATCH Miscellaneous (Remove Nicoderm Patch) 1 ea HS N/A 07/04/17 21:00 08/03/17 20:59 07/07/17 21:00 1 EA Ipratropium [place] (Atrovent 0.02% 0.5MG/2.5ML Neb) 0.5 mg Q6R INH 07/04/17 03:00 08/03/17 02:59 07/08/17 07:04 0.5 MG Levalbuterol (Xopenex 1.25MG/ 0.5ML Neb) 1.25 mg Q6R INH 07/04/17 03:00 08/03/17 02:59 07/08/17 07:04 1.25 MG Ipratropium [place] (Atrovent 0.02% 0.5MG/2.5ML Neb) 0.5 mg Q4H PRN INH 07/04/17 01:30 08/03/17 01:29 07/05/17 08:05 0.5 MG Levalbuterol (Xopenex 1.25MG/ 0.5ML Neb) 1.25 mg Q4H PRN INH 07/04/17 01:30 08/03/17 01:29 07/05/17 08:05 1.25 MG Levofloxacin (Consult) 1 ea UD PRN N/A 07/05/17 08:30 08/04/17 08:29 Clindamycin HCl (Cleocin Cap) 300 mg TID PO 07/05/17 11:00 07/12/17 10:59 07/07/17 20:45 300 MG Metoprolol Tartrate (Lopressor Tab) 25 mg TID PO 07/05/17 14:00 08/03/17 08:59 07/07/17 20:45 25 MG Pregabalin (Lyrica Cap) 150 mg BID PO 07/05/17 21:00 08/03/17 08:59 07/07/17 20:45 150 MG Torsemide (Demadex Tab) 40 mg BID17 PO 07/06/17 09:00 08/05/17 08:59 07/07/17 16:11 40 MG Spironolactone (Aldactone Tab) 25 mg QAM PO 07/06/17 09:00 08/05/17 08:59 07/07/17 07:51 25 MG Prednisone (PredniSONE TAB) 40 mg DAILY PO 07/06/17 09:00 08/05/17 08:59 07/07/17 07:52 40 MG Mometasone Furoate/ Formoterol Fumar (Dulera) 1 ea BID INH 07/07/17 21:00 08/06/17 20:59 07/08/17 07:55 1 EA Levofloxacin (Levaquin Tab) 750 mg Q2D@1100 PO 07/09/17 11:00 07/12/17 11:01 Impression (1) Diastolic CHF (2) Acute kidney injury (3) Chronic kidney disease (4) Volume overload (5) Diabetes Ms. Rojas was admitted to the hospital for evaluation of progressive LE edema, BAKER and LE cellulitis. She denies any change to her diet. She has been taking Furosemide 80 mg po bid and recently added PRN Zaroxolyn. Despite these changes her LE has worsened. Weight remains stable at 306 lbs. Echocardiogram reveals preserved LVEF 55 - 60% Recommendations -- Decrease Demadex to 20 mg po BID -- Monitor I&O's, daily weight -- Dietitian has provided patient education on 1500 mg / day sodium restricted diet -- Baseline creatinine 2.1. May need to accept mild increase in creatinine to maintain euvolemia and functional status, will monitor renal function closely as we are trying to improve volume status
--- NOTE | 2017-07-08 10:46 | Cardiology Follow-Up ---
Subjective General Date of Service: Jul 08, 2017. Chief Complaint: follow up shortness of breath Pt evaluation today including: conversation w/ patient, physical exam History of Present Illness The patient is a 72 year old female seen in cardiology follow up with prior evaluation by Dr Warren. Pt describes interval inprovement in her breathing and LE edema. Telemetry and EKG reveal rate controlled atrial flutter that appears chronic. Allergies Coded Allergies: Melatonin (Verified Allergy, Severe, RASH, 07/03/17) Penicillins (Verified Allergy, Unknown, UNLNOWN, 01/20/16) Social History Smoking Status: Current Every Day Smoker Hx Tobacco Use In Past Year?: Yes Hx Alcohol Use - Type And Amou: No Hx Substance Use - Type And Am: No Problem List Medical Problems: (1) Left leg cellulitis Status: Acute (2) Shortness of breath Status: Acute Physical Exam Vital Signs Last Vital Signs Documentation Date Time Temp Pulse Resp B/P (MAP) Pulse Ox O2 Delivery O2 Flow Rate FiO2 07/08/17 08:03 36.9 84 18 94/54 (67) 94 Nasal Cannula 3.0 102/84 (90) Physical Exam Constitutional: Level of Distress: NAD Head: atraumatic Neck: supple Lungs: Auscultation: no wheezing, no rales/crackles Cardiovascular: Heart Auscultation: RRR, no murmurs Abdomen: Inspection & Palpation: soft, non-distended, no tenderness, guarding & rebound Extremities: pertinent finding (trace edema ) Assessment and Plan Assessment and Plan Impressions: 1. Acute on chronic diastolic heart failure 2. chronic AF, AFL on coumadin 3. Obesity hypoventilation syndrome 4. Calcified AV without stenosis 5. Stage III-IV CKD 6. H/o CAD, prior CABG Plan: Nephro input noted and appreciated. Agree with reducing torsemide to 20 mg BID. Resume warfarin. Home dose is 8 mg daily, will resume at 4 mg daily and follow INR. Laboratory Results Last 24 Hours Test 07/07/17 11:28 07/07/17 16:18 07/07/17 20:27 07/08/17 06:22 Bedside Glucose 121 mg/dl 171 mg/dl 173 mg/dl Prothrombin Time 20.6 SECONDS Prothromb Time International Ratio 1.9 Sodium Level 139 mmol/L Potassium Level 4.1 mmol/L Chloride Level 100 mmol/L Carbon Dioxide Level 32 mmol/L Anion Gap 7.0 mmol/L Blood Urea Nitrogen 91 mg/dl Creatinine 2.39 mg/dl Est Creatinine Clear Calc Drug Dose 29.2 ml/min Estimated GFR () 22.6 Estimated GFR (Non- 19.5 BUN/Creatinine Ratio 38.0 Random Glucose 90 mg/dl Calcium Level 8.2 mg/dl Test 07/08/17 06:39 Bedside Glucose 94 mg/dl
--- NOTE | 2017-07-08 11:00 | DIAGNOSTIC IMAGING REPORT ---
(BARIUM SWALLOW) ESOPHAGUS CLINICAL HISTORY: Possible esophageal obstruction. Respiratory failure. COMPARISON STUDY: None. FLUOROSCOPY TIME: 1.6 minutes. FINDINGS: Moderate esophageal dysmotility was noted. No esophageal mass or stricture was identified. Mucosal detail is mildly diminished on this exam but no mucosal abnormalities are identified. No reflux was elicited. There are median sternotomy wires. IMPRESSION: 1. No esophageal mass or stricture. 2. Moderate esophageal dysmotility. Electronically signed by: Lucio Burnette M.D. 07/08/2017 10:59 AM Dictated Date/Time: 07/08/2017 10:58 AM
[2017-07-08] MEDS: CLINDAMYCIN HCL 150 MG CAP PO SCH ×3 (11:10→22:02)
[2017-07-08] MEDS: ASPIRIN 81 MG ECTAB PO SCH (11:10)
[2017-07-08] MEDS: POTASSIUM CHLORIDE 20 MEQ TABCR PO SCH ×3 (11:10→22:01)
[2017-07-08] MEDS: SPIRONOLACTONE 25 MG TAB PO SCH (11:10)
[2017-07-08] MEDS: PANTOprazole SOD 40 MG TAB PO SCH (11:10)
[2017-07-08] MEDS: SERTRALINE HCL 100 MG TAB PO SCH (11:11)
[2017-07-08] MEDS: ROSUVASTATIN CALCIUM 10 MG TAB PO SCH (11:11)
[2017-07-08] MEDS: FEBUXOSTAT 40 MG TAB PO SCH (11:11)
[2017-07-08] MEDS: DOCUSATE SODIUM 100 MG CAP PO SCH (11:11)
[2017-07-08] MEDS: ANASTROZOLE 1 MG TAB PO SCH (11:12)
[2017-07-08] MEDS: INSULIN GLARGINE SOLOSTAR 100 UNITS/ML 3 ML PEN SC SCH (11:13)
[2017-07-08] MEDS: PREGABALIN 150 MG CAP PO SCH ×2 (11:14→22:02)
[2017-07-08] MEDS: WARFARIN SOD 4 MG TAB PO SCH (16:38)
[2017-07-08] MEDS ORDERED: TORSEMIDE 20 MG TAB PO SCH (17:00)
--- NOTE | 2017-07-08 19:18 | Progress Note ---
Medicine Progress Note Date & Time of Visit: Jul 08, 2017 at 19:14. Subjective seen resting in bed, comfortable not in distress breathing continues to improve, less cough feeling improved overall no leg pain no other symptoms Objective Last 8 Hrs Date Time Temp Pulse Resp B/P (MAP) Pulse Ox O2 Delivery O2 Flow Rate FiO2 07/08/17 15:21 36.5 74 22 111/86 (94) 91 Nasal Cannula 2.0 07/08/17 14:36 77 18 95 Nasal Cannula 3.0 07/08/17 12:20 36.7 85 18 134/75 (94) 97 Nasal Cannula 07/08/17 12:00 Nasal Cannula Physical Exam: General- oriented x 3, not in distress, speaks in sentences with no effort Eyes- anicteric Neck- no JVD Lungs- mild scattered wheeze bilaterally, mild basilar rales Heart-normal rate, irregularly irregular rhythm, no murmurs Abdomen- normal bowel sounds, soft, nontender Extremities- no edema of the bilateral lower legs, no warmth, no tenderness Neuro- alert, oriented x 3; PERRL, EOMI; no facial palsy; no dysarthria; motor 5 /5 bilaterally; no gross focal deficits Skin- warm & dry Laboratory Results: Last 24 Hours Test 07/07/17 20:27 07/08/17 06:22 07/08/17 06:39 07/08/17 11:28 Bedside Glucose 173 mg/dl 94 mg/dl 103 mg/dl Prothrombin Time 20.6 SECONDS Prothromb Time International Ratio 1.9 Sodium Level 139 mmol/L Potassium Level 4.1 mmol/L Chloride Level 100 mmol/L Carbon Dioxide Level 32 mmol/L Anion Gap 7.0 mmol/L Blood Urea Nitrogen 91 mg/dl Creatinine 2.39 mg/dl Est Creatinine Clear Calc Drug Dose 29.2 ml/min Estimated GFR () 22.6 Estimated GFR (Non- 19.5 BUN/Creatinine Ratio 38.0 Random Glucose 90 mg/dl Calcium Level 8.2 mg/dl Test 07/08/17 16:34 Bedside Glucose 151 mg/dl Date/Time Source Procedure Growth Status 07/08/17 05:20 Sputum Expectorated Sputum Gram Stain - Final Resulted 07/08/17 05:20 Sputum Expectorated Sputum Sputum Culture Pending Resulted Assessment & Plan 72 / F with history of Chronic Respiratory Failure on home O2, CAD/CABG, HTN, CKD 3, ACUTE ON CHRONIC HYPOXIC RESPIRATORY FAILURE LIKELY FROM COPD EXACERBATION FROM ACUTE BRONCHITIS, POSSIBLE BILATERAL LOWER LOBE PNEUMONIA VS. ASPIRATION - 07/05: increased wheezing - improving daily back to baseline Oxygen supplement by NC Prednisone 40mg po daily Levaquin + Clinda continued Levalbuterol/Ipratropium q4h and PRN continued Dulera and Tudorza CPAP ordered at HS - improving daily appreciate Pulm SVC recommendations ACUTE ON CHRONIC DIASTOLIC CHF EXACERBATION ? - CXR no pulmonary edema BNP normal - (+) leg edema Nephro consulted on Lasix 80mg IV--> transitioned to Torsemide and Spironolactone--> Torsemide dose decreased in light of crea increasing continues to diurese well appreciate Nephro and Cardio SVC recommendations CHEST PAIN, ANGINA FROM HTN URGENCY?, Resolved HISTORY OF CAD/CABG/STENT - EKG a flutter rate controlled cardiac markers negative - ECHO: Normal LV chamber size with mild concentric LVH. * Normal LV systolic function, abnormal septal wall motion consistent with post-operative state, EF 55-60%. * Grade I diastolic dysfunction. * A bicuspid aortic valve cannot be excluded. Mildly calcified. Trace aortic regurgitation. No hemodynamically significant valvular aortic stenosis. -- resolved with 1 nitro already on Coumadin Aspirin, Statin -- from HTN urgency secondary to COPD exacerbation? BP 160s --> 90s, chest pain resolved, no recurrence sinice -- Cardiology consulted, appreciate the recommendations LOWER EXTREMITY EDEMA - chronic as per patient increased lately - Doppler US: negative - management as noted above - component of Cellulitis? on Clindamycin PARESTHESIAS, DIGIT4 AND 5, RIGHT - likely Ulnar Nerve unvolvement - may need EMG as outpatient CAD/CABG -- management as noted above ATRIAL FLUTTER -- INR 1.9 coumadin 4mg resumed usually on coumadin 8mg daily INR daily Hypertension - continue Metoprolol, usually on 37.5mg po daily, now on 25mg BID CKD 3 - records requested from PCP - baseline crea 0.68 per outside records crea at 2.3, monitor crea while on Lasix Breast cancer, left, status post surgery, radiation, ongoing hormone therapy. Ongoing tobacco abuse. - Nicotine Patch JONATHON - CPAP DVT proph Coumadin INR 1.9 Dispo pending lives at home with daughter PT/OT anticipate d/c home when medically stable Current Inpatient Medications: Current Inpatient Medications Medications (Trade) Dose Ordered Sig/Isidoro Route Start Time Stop Time Status Last Admin Dose Admin Insulin Glargine (Lantus Solostar Pen) 5 units DAILY SC 07/05/17 09:00 08/04/17 08:59 07/08/17 11:13 5 UNITS Acetaminophen (Tylenol Tab) 650 mg Q4H PRN PO 07/04/17 00:45 08/03/17 00:44 Nitroglycerin (Nitrostat Tab) 0.4 mg UD PRN SL 07/04/17 00:45 08/03/17 00:44 07/05/17 07:58 0.4 MG Insulin Aspart (novoLOG ASPART) SLIDING SCALE If C... ACHS SC 07/04/17 07:00 08/03/17 06:59 07/08/17 18:09 3 UNITS Glucose (Glucose 40% Gel) 15-30 GRAMS 15 GRAMS... UD PRN PO 07/04/17 00:45 08/03/17 00:44 Glucose (Glucose Chew Tab) 4-8 Tablets 4 Tabl... UD PRN PO 07/04/17 00:45 08/03/17 00:44 Dextrose (Dextrose 50% 50ML Syringe) 25-50ML OF 50% DW IV FOR... UD PRN IV 07/04/17 00:45 08/03/17 00:44 Glucagon (Glucagon Inj) 1 mg UD PRN SQ 07/04/17 00:45 08/03/17 00:44 Anastrozole (Arimidex Tab) 1 mg DAILY PO 07/04/17 09:00 08/03/17 08:59 07/08/17 11:12 1 MG Docusate Sodium (coLACE CAP) 100 mg DAILY PO 07/04/17 09:00 08/03/17 08:59 07/08/17 11:11 100 MG Levothyroxine Sodium (Synthroid Tab) 112 mcg DAILYBB PO 07/04/17 06:00 08/03/17 06:59 07/08/17 05:24 112 MCG Pantoprazole Sodium (Protonix Tab) 40 mg DAILY PO 07/04/17 09:00 08/03/17 08:59 07/08/17 11:10 40 MG Potassium Chloride (Klor-Con Tab) 20 meq TID PO 07/04/17 09:00 08/03/17 08:59 07/08/17 13:10 20 MEQ Rosuvastatin Calcium (Crestor Tab) 10 mg DAILY PO 07/04/17 09:00 08/03/17 08:59 07/08/17 11:11 10 MG Sertraline HCl (Zoloft Tab) 150 mg DAILY PO 07/04/17 09:00 08/03/17 08:59 07/08/17 11:11 150 MG Febuxostat (Uloric) 40 mg DAILY PO 07/04/17 09:00 08/03/17 08:59 07/08/17 11:11 40 MG Aspirin (Ecotrin Tab) 81 mg QAM PO 07/04/17 09:00 08/03/17 08:59 07/08/17 11:10 81 MG Tramadol HCl (Ultram Tab) not relieved by tylenol @ Q6H PRN PO 07/04/17 01:15 08/03/17 01:14 Hydromorphone HCl (Dilaudid Inj) 0.5 mg Q3H PRN IV 07/04/17 01:15 07/18/17 01:14 Ondansetron HCl (Zofran Inj) 4 mg Q6H PRN IV 07/04/17 01:15 08/03/17 01:14 Nicotine (Nicoderm Cq 21MG Patch) 1 patch QAM TD 07/04/17 09:00 08/03/17 08:59 07/08/17 07:56 1 PATCH Miscellaneous (Remove Nicoderm Patch) 1 ea HS N/A 07/04/17 21:00 08/03/17 20:59 07/07/17 21:00 1 EA Ipratropium [place] (Atrovent 0.02% 0.5MG/2.5ML Neb) 0.5 mg Q6R INH 07/04/17 03:00 08/03/17 02:59 07/08/17 14:35 0.5 MG Levalbuterol (Xopenex 1.25MG/ 0.5ML Neb) 1.25 mg Q6R INH 07/04/17 03:00 08/03/17 02:59 07/08/17 14:35 1.25 MG Ipratropium [place] (Atrovent 0.02% 0.5MG/2.5ML Neb) 0.5 mg Q4H PRN INH 07/04/17 01:30 08/03/17 01:29 07/05/17 08:05 0.5 MG Levalbuterol (Xopenex 1.25MG/ 0.5ML Neb) 1.25 mg Q4H PRN INH 07/04/17 01:30 08/03/17 01:29 07/05/17 08:05 1.25 MG Levofloxacin (Consult) 1 ea UD PRN N/A 07/05/17 08:30 08/04/17 08:29 Clindamycin HCl (Cleocin Cap) 300 mg TID PO 07/05/17 11:00 07/12/17 10:59 07/08/17 13:10 300 MG Metoprolol Tartrate (Lopressor Tab) 25 mg TID PO 07/05/17 14:00 08/03/17 08:59 07/08/17 13:10 25 MG Pregabalin (Lyrica Cap) 150 mg BID PO 07/05/17 21:00 08/03/17 08:59 07/08/17 11:14 150 MG Spironolactone (Aldactone Tab) 25 mg QAM PO 07/06/17 09:00 08/05/17 08:59 07/08/17 11:10 25 MG Prednisone (PredniSONE TAB) 40 mg DAILY PO 07/06/17 09:00 08/05/17 08:59 07/08/17 11:09 40 MG Mometasone Furoate/ Formoterol Fumar (Dulera) 1 ea BID INH 07/07/17 21:00 08/06/17 20:59 07/08/17 07:55 1 EA Levofloxacin (Levaquin Tab) 750 mg Q2D@1100 PO 07/09/17 11:00 07/12/17 11:01 Torsemide (Demadex Tab) 20 mg BID17 PO 07/08/17 17:00 08/05/17 08:59 07/08/17 16:38 20 MG Warfarin Sodium (Coumadin Tab) 4 mg DAILY@16 PO 07/08/17 16:00 08/07/17 15:59 07/08/17 16:38 4 MG
[2017-07-08] MEDS ORDERED: NURSING VERBAL MED ORDER ONE (23:45)
[2017-07-09] VITALS (10 sets, daily range): BP systolic 95–141; BP diastolic 53–86; PULSE 70–87; TEMP 36.5–37.3; O2SAT 91–94
[2017-07-09] MEDS ORDERED: POLYETHYLENE (MIRALAX) 17 GM PACK PO PRN (00:45)
[2017-07-09] MEDS: LEVALBUTEROL 1.25MG/0.5ML NEB INH SCH ×4 (03:00→19:06)
[2017-07-09] MEDS: IPRATROPIUM BROMIDE NEB SOLN 0.02% 2.5 ML VIAL INH SCH ×4 (03:00→19:06)
[2017-07-09] MEDS: LEVOTHYROXINE 112 MCG TAB PO SCH (05:39)
[2017-07-09 07:04] LABS: INR 1.7 (0.9-1.1); PROTHROMBIN TIME (PATIENT) 18.6 SECONDS (9.0-12.0)
[2017-07-09 07:14] LABS: BUN/CREATININE RATIO 37.5 (10-20); CREATININE 2.43 mg/dl (0.60-1.20); POTASSIUM 3.9 mmol/L (3.5-5.1)
[2017-07-09] MEDS: INSULIN ASPART 100 UNITS/ML 3 ML PEN SC SCH ×4 (07:56→20:27)
[2017-07-09] MEDS: INSULIN GLARGINE SOLOSTAR 100 UNITS/ML 3 ML PEN SC SCH (07:56)
[2017-07-09] MEDS: NICOTINE 21 MG/24 HR TDSY TD SCH (07:57)
[2017-07-09] MEDS: ASPIRIN 81 MG ECTAB PO SCH (07:57)
[2017-07-09] MEDS: ANASTROZOLE 1 MG TAB PO SCH (07:57)
[2017-07-09] MEDS: CLINDAMYCIN HCL 150 MG CAP PO SCH ×3 (07:57→20:25)
[2017-07-09] MEDS: DOCUSATE SODIUM 100 MG CAP PO SCH (07:57)
[2017-07-09] MEDS: PANTOprazole SOD 40 MG TAB PO SCH (07:59)
[2017-07-09] MEDS: POTASSIUM CHLORIDE 20 MEQ TABCR PO SCH ×3 (08:00→20:25)
[2017-07-09] MEDS: SPIRONOLACTONE 25 MG TAB PO SCH (08:00)
[2017-07-09] MEDS: ROSUVASTATIN CALCIUM 10 MG TAB PO SCH (08:00)
[2017-07-09] MEDS: MOMETASONE FUROATE FORMOTEROL INH SCH ×2 (08:01→20:26)
[2017-07-09] MEDS: ACLIDINIUM BROMIDE INH SCH ×2 (08:01→20:26)
[2017-07-09] MEDS: SERTRALINE HCL 100 MG TAB PO SCH (08:01)
[2017-07-09] MEDS: FEBUXOSTAT 40 MG TAB PO SCH (08:01)
[2017-07-09] MEDS: PREGABALIN 150 MG CAP PO SCH ×2 (08:03→20:24)
--- NOTE | 2017-07-09 09:39 | CARDIOLOGY PROGRESS NOTE ---
DATE: 07/09/2017 DATE: 07/09/2017 FOLLOW-UP VISIT SUBJECTIVE: The patient is a 72-year-old female who was admitted with acute on chronic diastolic heart failure. She also has chronic atrial fibrillation and is on long-term anticoagulation with Coumadin. She has a history of obesity with hypoventilation syndrome. She has had previous coronary artery bypass surgery and has chronic stage III to IV kidney disease. She is doing much better since admission. Her diuretics were decreased yesterday by the nephrology service. She has no new cardiac complaints today. OBJECTIVE: VITAL SIGNS: Blood pressure is 100/60, pulse is irregular at 70 beats per minute. GENERAL: She is afebrile. HEAD, EYES, EARS, NOSE, AND THROAT: She is normocephalic. Pupils are equal and reactive to light. Extraocular muscles are intact bilaterally. NECK: The neck veins are flat. Carotids have good upstrokes bilaterally without bruits. Thyroid is nonpalpable. RESPIRATORY: Breath sounds equal bilaterally and clear to auscultation. CARDIOVASCULAR: Heart has an irregular rhythm. There is normal S1, S2. No S3, S4. GASTROINTESTINAL: Abdomen is obese, soft, nontender without organomegaly. EXTREMITIES: Free of edema, digit clubbing, or cyanosis. NEUROLOGIC: Grossly intact. SKIN: Warm to touch. LYMPH NODES: Negative to palpation. LABORATORY DATA: Creatinine is 2.43, BUN is 91. Potassium is 3.9, hemoglobin is 15. WBC count is 10.3. INR is 1.7. IMPRESSION: 1. Acute on chronic diastolic heart failure. 2. Chronic atrial fibrillation. 3. Obesity with hypoventilation syndrome and sleep apnea. 4. Previous history of coronary artery bypass surgery. 5. Chronic kidney disease stage III-IV. RECOMMENDATIONS: The patient had her warfarin restarted yesterday at a reduced dose of 4 mg daily. She is usually on I believe 8 mg daily. This may have to be increased as her INR remains low and declining. I am going to ask physical therapy to see her to get her ambulated in anticipation of being discharged soon.
[2017-07-09] MEDS: METOPROLOL TARTRATE 25 MG TAB PO SCH ×3 (09:56→20:25)
--- NOTE | 2017-07-09 10:08 | Nephrology Progress Note ---
Nephrology Progress Note Date of Service Jul 09, 2017. Chief Complaint Follow-up for acute kidney injury with history of chronic kidney disease. Helga Hollingsworth Was seen and examined in her room this morning. Overall she has been doing well, no overnight events. Denies any shortness of breath or chest pain. Creatinine stable at 2.4 without significant changes. She has been net negative and since admission she is total 7.5 liter negative. Review of Systems A complete review of systems was performed. Pertinent positives are noted above. All other systems are negative. Vital Signs Last 8 Hrs Date Time Temp Pulse Resp B/P (MAP) Pulse Ox O2 Delivery O2 Flow Rate FiO2 07/09/17 09:56 141/76 (97) 07/09/17 08:13 36.5 73 22 97/63 (74) 93 Nasal Cannula 3.0 07/09/17 07:06 75 18 94 Nasal Cannula 3.0 07/09/17 04:00 Nasal Cannula 3.0 07/09/17 03:30 36.8 70 20 95/53 (67) 92 Nasal Cannula 3.0 Humidified Oxygen Last Recorded Weight Weight (Kilograms): 139.600 Physical Exam GENERAL: Elderly female, AAA x 3, pleasant,obese, not in any distress. NECK: Supple, no JVD. RESPIRATORY: diffuse wheezes. CARDIOVASCULAR: S1, S2 normal, rate rhythm regular. EXTREMITY: trace bilateral lower extremity edema NEURO: speech fluent. PSYCHIATRY: Normal mood and judgment Family History Patient reports no known family medical history. Negative for CKD/ESRD Social History Marital Status: Occupation: retired . Lives in [place], [place]. Retired. 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 H/o tobacco use 1.5 ppd. Patient denies alcohol use. Laboratory Results Past 24 Hours 07/09/17 06:16 Test 07/08/17 11:28 07/08/17 16:34 07/08/17 20:44 07/09/17 06:16 Bedside Glucose 103 mg/dl (70-90) 151 mg/dl (70-90) 142 mg/dl (70-90) Prothrombin Time 18.6 SECONDS (9.0-12.0) Prothromb Time International Ratio 1.7 (0.9-1.1) Anion Gap 7.0 mmol/L (3-11) Est Creatinine Clear Calc Drug Dose 28.9 ml/min Estimated GFR () 22.1 Estimated GFR (Non- 19.1 BUN/Creatinine Ratio 37.5 (10-20) Calcium Level 8.0 mg/dl (8.5-10.1) Test 07/09/17 06:17 Bedside Glucose 90 mg/dl (70-90) Allergies Coded Allergies: Melatonin (Verified Allergy, Severe, RASH, 07/03/17) Penicillins (Verified Allergy, Unknown, UNLNOWN, 01/20/16) Medications Current Inpatient Medications Medications (Trade) Dose Ordered Sig/Isidoro Route Start Time Stop Time Status Last Admin Dose Admin Insulin Glargine (Lantus Solostar Pen) 5 units DAILY SC 07/05/17 09:00 08/04/17 08:59 07/09/17 07:56 5 UNITS Acetaminophen (Tylenol Tab) 650 mg Q4H PRN PO 07/04/17 00:45 08/03/17 00:44 Nitroglycerin (Nitrostat Tab) 0.4 mg UD PRN SL 07/04/17 00:45 08/03/17 00:44 07/05/17 07:58 0.4 MG Insulin Aspart (novoLOG ASPART) SLIDING SCALE If C... ACHS SC 07/04/17 07:00 08/03/17 06:59 07/09/17 07:56 2 UNITS Glucose (Glucose 40% Gel) 15-30 GRAMS 15 GRAMS... UD PRN PO 07/04/17 00:45 08/03/17 00:44 Glucose (Glucose Chew Tab) 4-8 Tablets 4 Tabl... UD PRN PO 07/04/17 00:45 08/03/17 00:44 Dextrose (Dextrose 50% 50ML Syringe) 25-50ML OF 50% DW IV FOR... UD PRN IV 07/04/17 00:45 08/03/17 00:44 Glucagon (Glucagon Inj) 1 mg UD PRN SQ 07/04/17 00:45 08/03/17 00:44 Anastrozole (Arimidex Tab) 1 mg DAILY PO 07/04/17 09:00 08/03/17 08:59 07/09/17 07:57 1 MG Docusate Sodium (coLACE CAP) 100 mg DAILY PO 07/04/17 09:00 08/03/17 08:59 07/09/17 07:57 100 MG Levothyroxine Sodium (Synthroid Tab) 112 mcg DAILYBB PO 07/04/17 06:00 08/03/17 06:59 07/09/17 05:39 112 MCG Pantoprazole Sodium (Protonix Tab) 40 mg DAILY PO 07/04/17 09:00 08/03/17 08:59 07/09/17 07:59 40 MG Potassium Chloride (Klor-Con Tab) 20 meq TID PO 07/04/17 09:00 08/03/17 08:59 07/09/17 08:00 20 MEQ Rosuvastatin Calcium (Crestor Tab) 10 mg DAILY PO 07/04/17 09:00 08/03/17 08:59 07/09/17 08:00 10 MG Sertraline HCl (Zoloft Tab) 150 mg DAILY PO 07/04/17 09:00 08/03/17 08:59 07/09/17 08:01 150 MG Febuxostat (Uloric) 40 mg DAILY PO 07/04/17 09:00 08/03/17 08:59 07/09/17 08:01 40 MG Aspirin (Ecotrin Tab) 81 mg QAM PO 07/04/17 09:00 08/03/17 08:59 07/09/17 07:57 81 MG Tramadol HCl (Ultram Tab) not relieved by tylenol @ Q6H PRN PO 07/04/17 01:15 08/03/17 01:14 Hydromorphone HCl (Dilaudid Inj) 0.5 mg Q3H PRN IV 07/04/17 01:15 07/18/17 01:14 Ondansetron HCl (Zofran Inj) 4 mg Q6H PRN IV 07/04/17 01:15 08/03/17 01:14 Nicotine (Nicoderm Cq 21MG Patch) 1 patch QAM TD 07/04/17 09:00 08/03/17 08:59 07/09/17 07:57 1 PATCH Miscellaneous (Remove Nicoderm Patch) 1 ea HS N/A 07/04/17 21:00 08/03/17 20:59 07/08/17 22:02 1 EA Ipratropium [place] (Atrovent 0.02% 0.5MG/2.5ML Neb) 0.5 mg Q6R INH 07/04/17 03:00 08/03/17 02:59 07/09/17 07:04 0.5 MG Levalbuterol (Xopenex 1.25MG/ 0.5ML Neb) 1.25 mg Q6R INH 07/04/17 03:00 08/03/17 02:59 07/09/17 07:04 1.25 MG Ipratropium [place] (Atrovent 0.02% 0.5MG/2.5ML Neb) 0.5 mg Q4H PRN INH 07/04/17 01:30 08/03/17 01:29 07/05/17 08:05 0.5 MG Levalbuterol (Xopenex 1.25MG/ 0.5ML Neb) 1.25 mg Q4H PRN INH 07/04/17 01:30 08/03/17 01:29 07/05/17 08:05 1.25 MG Levofloxacin (Consult) 1 ea UD PRN N/A 07/05/17 08:30 08/04/17 08:29 Clindamycin HCl (Cleocin Cap) 300 mg TID PO 07/05/17 11:00 07/12/17 10:59 07/09/17 07:57 300 MG Metoprolol Tartrate (Lopressor Tab) 25 mg TID PO 07/05/17 14:00 08/03/17 08:59 07/09/17 09:56 25 MG Pregabalin (Lyrica Cap) 150 mg BID PO 07/05/17 21:00 08/03/17 08:59 07/09/17 08:03 150 MG Spironolactone (Aldactone Tab) 25 mg QAM PO 07/06/17 09:00 08/05/17 08:59 07/09/17 08:00 25 MG Prednisone (PredniSONE TAB) 40 mg DAILY PO 07/06/17 09:00 08/05/17 08:59 07/09/17 07:59 40 MG Mometasone Furoate/ Formoterol Fumar (Dulera) 1 ea BID INH 07/07/17 21:00 08/06/17 20:59 07/09/17 08:01 1 EA Levofloxacin (Levaquin Tab) 750 mg Q2D@1100 PO 07/09/17 11:00 07/12/17 11:01 07/09/17 09:56 750 MG Warfarin Sodium (Coumadin Tab) 4 mg DAILY@16 PO 07/08/17 16:00 08/07/17 15:59 07/08/17 16:38 4 MG Polyethylene (Miralax Powder Packet) 17 gm DAILY PRN PO 07/09/17 00:45 08/08/17 00:44 Impression (1) Diastolic CHF (2) Acute kidney injury (3) Chronic kidney disease (4) Volume overload (5) Diabetes Ms. Rojas was admitted to the hospital for evaluation of progressive LE edema, BAKER and LE cellulitis. She denies any change to her diet. She has been taking Furosemide 80 mg po bid and recently added PRN Zaroxolyn. Despite these changes her LE has worsened. Weight remains stable at 306 lbs. Echocardiogram reveals preserved LVEF 55 - 60% Recommendations -- hold diuretics for now as she has been net negative and volume status seems to have improve significantly. -- monitor renal function with daily renal panel -- Monitor I&O's, daily weight daily and assess for need for diuretics, at some point we may have to resume diuretics
[2017-07-09] MEDS ORDERED: LEVOFLOXACIN 750 MG TAB PO SCH (11:00)
[2017-07-09] MEDS: WARFARIN SOD 4 MG TAB PO SCH (16:45)
--- NOTE | 2017-07-09 17:02 | Progress Note ---
Internal Med Progress Note Date of Service: Jul 09, 2017. Provider Documentation: SUBJECTIVE: resting comfortably slept ok says sob improved no chest pain no nausea wants to be discharged soon OBJECTIVE: Vital Signs-as noted below Exam: General-alert and oriented. Not in distress ENT-Normal hearing Neck-no neck masses Lungs-CTA b/l no wheezing or crackles Heart-S1 and S2 heard. Regular rate and rhythm, no murmurs Abdomen-Soft Bowel sounds present no tenderness present no distension Extremities- no erythema. Neuro-alert and awake moves extremities Lab data as noted below. ASSESSMENT & PLAN: 72 / F with history of Chronic Respiratory Failure on home O2, CAD/CABG, HTN, CKD 3, ACUTE ON CHRONIC HYPOXIC RESPIRATORY FAILURE LIKELY FROM COPD EXACERBATION FROM ACUTE BRONCHITIS, POSSIBLE BILATERAL LOWER LOBE PNEUMONIA VS. ASPIRATION was started on clindamycin and levaquin, iv steroids currently on po steroids on Levalbuterol/Ipratropium q4h and PRN continued Dulera and Tudorza CPAP ordered at HS improving v/q scan low probability barium swallow shows moderate dysmotility Speech recommends out patient speech therapy pulmonary signed off continue to monitor pt/ot ACUTE ON CHRONIC DIASTOLIC CHF EXACERBATION ? on Lasix 80mg IV--> transitioned to Torsemide and Spironolactone--> Torsemide dose decreased in light of crea increasing currently diuretics on hold for arf appreciate Nephro and Cardio SVC recommendations CHEST PAIN, ANGINA FROM HTN URGENCY?, Resolved HISTORY OF CAD/CABG/STENT EKG a flutter rate controlled cardiac markers negative echo unremarkable currently asymptomatic LOWER EXTREMITY EDEMA Doppler US: negative management as noted above- currently diuretics on hold component of Cellulitis? on Clindamycin PARESTHESIAS, DIGIT4 AND 5, RIGHT likely Ulnar Nerve involvement EMG as outpatient CAD/CABG stable' home meds ATRIAL FLUTTER INR 1.7 today Coumadin 4mg resumed usually on coumadin 8mg daily will f/u INR daily Hypertension on Metoprolol, usually on 37.5mg po daily, now on 25mg BID will monitor ARF on CKD 3 presented with Cr 1.8 crea at 2.4 today, monitor crea . Breast cancer, left, status post surgery, radiation, ongoing hormone therapy. Ongoing tobacco abuse. Nicotine Patch JONATHON CPAP q hs DVT proph Coumadin INR 1.9 Dispo To be determined lives at home with daughter PT/OT anticipate d/c home when medically stable Vital Signs: Date Time Temp Pulse Resp B/P (MAP) Pulse Ox O2 Delivery O2 Flow Rate FiO2 07/09/17 15:20 37.3 79 18 121/86 (98) 91 Nasal Cannula 3.0 Humidified Oxygen 07/09/17 14:23 84 16 94 Nasal Cannula 3.0 07/09/17 12:00 Nasal Cannula 07/09/17 11:53 37.0 78 16 103/60 (74) 93 Room Air 07/09/17 09:56 141/76 (97) 07/09/17 08:13 36.5 73 22 97/63 (74) 93 Nasal Cannula 3.0 07/09/17 08:00 Nasal Cannula 07/09/17 07:06 75 18 94 Nasal Cannula 3.0 07/09/17 04:00 Nasal Cannula 3.0 07/09/17 03:30 36.8 70 20 95/53 (67) 92 Nasal Cannula 3.0 Humidified Oxygen 07/09/17 00:00 Nasal Cannula 3.0 07/08/17 23:30 37.0 81 20 93/54 (67) 93 Nasal Cannula 3.0 07/08/17 20:30 93 Nasal Cannula 3.0 07/08/17 19:31 73 18 93 Nasal Cannula 3.0 07/08/17 19:11 36.7 78 24 105/68 (80) 93 Nasal Cannula 3.0 Lab Results: Results Past 24 Hours Test 07/08/17 20:44 07/09/17 06:16 07/09/17 06:17 07/09/17 10:39 Range/Units Bedside Glucose 142 90 114 70-90 mg/dl Prothrombin Time 18.6 9.0-12.0 SECONDS Prothromb Time International Ratio 1.7 0.9-1.1 Sodium Level 137 136-145 mmol/L Potassium Level 3.9 3.5-5.1 mmol/L Chloride Level 99 98-107 mmol/L Carbon Dioxide Level 31 21-32 mmol/L Anion Gap 7.0 3-11 mmol/L Blood Urea Nitrogen 91 7-18 mg/dl Creatinine 2.43 0.60-1.20 mg/dl Est Creatinine Clear Calc Drug Dose 28.9 ml/min Estimated GFR () 22.1 Estimated GFR (Non- 19.1 BUN/Creatinine Ratio 37.5 10-20 Random Glucose 87 70-99 mg/dl Calcium Level 8.0 8.5-10.1 mg/dl Test 07/09/17 16:10 Range/Units Bedside Glucose 153 70-90 mg/dl
[2017-07-10] MEDS ORDERED: ZOLPIDEM TARTRATE 5 MG TAB PO PRN (02:30)
[2017-07-10] MEDS: IPRATROPIUM BROMIDE NEB SOLN 0.02% 2.5 ML VIAL INH SCH ×2 (02:52→07:05)
[2017-07-10] MEDS: LEVALBUTEROL 1.25MG/0.5ML NEB INH SCH ×2 (02:52→07:05)
[2017-07-10 02:54] VITALS: PULSE 86; O2SAT 95
[2017-07-10 03:33] VITALS: BP 117/67; PULSE 72; TEMP 36.5; O2SAT 94
[2017-07-10 05:35] LABS: MEAN CORPUSCULAR HGB CONC 32.1 g/dl (32-36)
[2017-07-10 05:47] LABS: INR 1.6 (0.9-1.1); PROTHROMBIN TIME (PATIENT) 16.9 SECONDS (9.0-12.0)
[2017-07-10 05:48] LABS: HEMATOCRIT 44.9 % (37-47); MEAN CELL VOLUME 77.1 fL (80-100); MEAN CORPUSCULAR HEMOGLOBIN 24.7 pg (25-34); RED BLOOD COUNT 5.82 M/uL (4.2-5.4); WHITE BLOOD COUNT 11.07 K/uL (4.8-10.8)
[2017-07-10 06:10] LABS: BUN/CREATININE RATIO 41.6 (10-20); CALCIUM 7.8 mg/dl (8.5-10.1); CREATININE 1.96 mg/dl (0.60-1.20); POTASSIUM 4.1 mmol/L (3.5-5.1)
[2017-07-10] MEDS: LEVOTHYROXINE 112 MCG TAB PO SCH (06:10)
[2017-07-10 06:16] LABS: PLATELET COUNT 105 K/uL (130-400)
[2017-07-10 06:17] LABS: COMPLETE YES; EOS % 0.4 %; IG% 0.5 %; LYMPH % 12.6 %; MONO % 10.9 %; NEUT % 75.6 %; PLT ESTIMATE DECREASED
[2017-07-10 07:05] VITALS: PULSE 79; O2SAT 94
[2017-07-10 07:42] VITALS: BP 110/74; PULSE 77; TEMP 36.5; O2SAT 92
[2017-07-10] MEDS: MOMETASONE FUROATE FORMOTEROL INH SCH (07:51)
[2017-07-10] MEDS: ROSUVASTATIN CALCIUM 10 MG TAB PO SCH (07:51)
[2017-07-10] MEDS: ACLIDINIUM BROMIDE INH SCH (07:51)
[2017-07-10] MEDS: POTASSIUM CHLORIDE 20 MEQ TABCR PO SCH (07:51)
[2017-07-10] MEDS: METOPROLOL TARTRATE 25 MG TAB PO SCH (07:52)
[2017-07-10] MEDS: SERTRALINE HCL 100 MG TAB PO SCH (07:52)
[2017-07-10] MEDS: DOCUSATE SODIUM 100 MG CAP PO SCH (07:52)
[2017-07-10] MEDS: ASPIRIN 81 MG ECTAB PO SCH (07:52)
[2017-07-10] MEDS: PANTOprazole SOD 40 MG TAB PO SCH (07:52)
[2017-07-10] MEDS: CLINDAMYCIN HCL 150 MG CAP PO SCH (07:52)
[2017-07-10] MEDS: SPIRONOLACTONE 25 MG TAB PO SCH (07:53)
[2017-07-10] MEDS: NICOTINE 21 MG/24 HR TDSY TD SCH (07:53)
[2017-07-10] MEDS: FEBUXOSTAT 40 MG TAB PO SCH (07:53)
[2017-07-10] MEDS: INSULIN ASPART 100 UNITS/ML 3 ML PEN SC SCH (07:56)
[2017-07-10] MEDS: INSULIN GLARGINE SOLOSTAR 100 UNITS/ML 3 ML PEN SC SCH (07:56)
[2017-07-10] MEDS: ANASTROZOLE 1 MG TAB PO SCH (07:57)
[2017-07-10] MEDS: PREGABALIN 150 MG CAP PO SCH (07:59)
[2017-07-10] MEDS ORDERED: FUROSEMIDE 40 MG TAB PO ONE (09:15)
--- NOTE | 2017-07-10 09:33 | PROGRESS NOTE ---
DATE: 07/10/2017 FOLLOWUP VISIT SUBJECTIVE: This 72-year-old female with acute on chronic diastolic heart failure, chronic atrial fibrillation, obesity with hypoventilation syndrome, sleep apnea, stage III to IV kidney disease, previous coronary artery bypass surgery. She continues to do well and has no new cardiac complaints today. Unfortunately, her diuretics were discontinued yesterday and this morning she appears to be retaining some fluid in her legs. Her creatinine has improved after stopping the diuretics. She is normally on 80 of Lasix twice daily along with a p.r.n. dose of Zaroxolyn when she is at home. I will restart the Lasix at 40 mg b.i.d. today. She is anxious to return home. OBJECTIVE: VITAL SIGNS: Blood pressure is 110/70, pulse is irregular at 77 beats per minute. She is afebrile. HEENT: She is normocephalic. Pupils are equal and reactive to light. Extraocular muscles are intact bilaterally. NECK: The neck veins are flat. Carotids have good upstrokes bilaterally without bruits. Thyroid is nonpalpable. RESPIRATORY: Breath sounds are equal bilaterally and clear to auscultation. CARDIOVASCULAR: Heart has a regular rhythm. Normal S1, S2. No S3, S4. No cardiac rubs or murmurs. GASTROINTESTINAL: Abdomen is soft, nontender without organomegaly. EXTREMITIES: Have edema around the ankles bilaterally. NEUROLOGIC: Grossly intact. SKIN: Warm to touch. LYMPH NODES: Negative to palpation. IMPRESSION: 1. Acute on chronic diastolic heart failure. 2. Stage III to IV kidney disease. 3. Obesity, hypoventilation syndrome and sleep apnea. 4. Atrial flutter. 5. Previous coronary artery bypass surgery. RECOMMENDATIONS: The patient's INR is 1.6 today. She had been on warfarin 8 mg daily, and is only on 4 mg daily here. I will increase it to 8 mg daily. As outlined above, I think is starting to retain some fluid after her diuretics were held yesterday. I will restart her on Lasix 40 mg twice daily. She has been on torsemide here in the hospital and was on Lasix 80 mg twice daily with p.r.n. Zaroxolyn dosages at home. We will have to monitor her fluid balance as well as renal function very closely as an outpatient. I will arrange for her to have followup at our [place] clinic. She has in the past followed with Dr. Fernandez but she realizes that he may be slowing his practice down and would like to make the switch at this point. She is a good candidate for our heart failure clinic. I will make arrangements for her followup.
--- NOTE | 2017-07-10 10:27 | Nephrology Progress Note ---
Nephrology Progress Note Date of Service Jul 10, 2017. Chief Complaint Follow-up for acute kidney injury with history of chronic kidney disease. Helga Hollingsworth Was seen and examined in her room this morning. Overall she is feeling much better, denies any shortness of breath or chest pain. Has been off of diuretics but remained net negative more than 1 liter. Renal function improve, creatinine now at baseline. Blood pressure stable. Review of Systems A complete review of systems was performed. Pertinent positives are noted above. All other systems are negative. Vital Signs Last 8 Hrs Date Time Temp Pulse Resp B/P (MAP) Pulse Ox O2 Delivery O2 Flow Rate FiO2 07/10/17 08:00 Nasal Cannula 07/10/17 07:42 36.5 77 18 110/74 (86) 92 2.0 07/10/17 07:05 79 16 94 Nasal Cannula 3.0 07/10/17 04:00 Nasal Cannula 3.0 07/10/17 03:33 36.5 72 18 117/67 (84) 94 Nasal Cannula 3.0 Humidified Oxygen 07/10/17 02:54 86 16 95 Nasal Cannula 3.0 Last Recorded Weight Weight (Kilograms): 140.000 Physical Exam GENERAL: Elderly female, AAA x 3, pleasant,obese, not in any distress. NECK: Supple, no JVD. RESPIRATORY: diffuse wheezes. CARDIOVASCULAR: S1, S2 normal, rate rhythm regular. EXTREMITY: trace bilateral lower extremity edema NEURO: speech fluent. PSYCHIATRY: Normal mood and judgment Family History Patient reports no known family medical history. Negative for CKD/ESRD Social History Marital Status: Occupation: retired . Lives in [place], [place]. Retired. 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 H/o tobacco use 1.5 ppd. Patient denies alcohol use. Laboratory Results Past 24 Hours 07/10/17 05:09 Red Blood Count 5.82, Mean Corpuscular Volume 77.1, Mean Corpuscular Hemoglobin 24.7, Mean Corpuscular Hemoglobin Concent 32.1, Neutrophils (%) (Auto) 75.6, Lymphocytes (%) (Auto) 12.6, Monocytes (%) (Auto) 10.9, Eosinophils (%) (Auto) 0.4, Basophils (%) (Auto) 0.0, Neutrophils # (Auto) 8.37, Lymphocytes # (Auto) 1.40, Monocytes # (Auto) 1.21, Eosinophils # (Auto) 0.04, Basophils # (Auto) 0.00 07/10/17 05:09 Test 07/09/17 10:39 07/09/17 16:10 07/09/17 20:14 07/10/17 05:09 Bedside Glucose 114 mg/dl (70-90) 153 mg/dl (70-90) 143 mg/dl (70-90) White Blood Count 11.07 K/uL (4.8-10.8) Red Blood Count 5.82 M/uL (4.2-5.4) Hemoglobin 14.4 g/dL (12.0-16.0) Hematocrit 44.9 % (37-47) Mean Corpuscular Volume 77.1 fL (80-100) Mean Corpuscular Hemoglobin 24.7 pg (25-34) Mean Corpuscular Hemoglobin Concent 32.1 g/dl (32-36) Platelet Count 105 K/uL (130-400) Neutrophils (%) (Auto) 75.6 % Lymphocytes (%) (Auto) 12.6 % Monocytes (%) (Auto) 10.9 % Eosinophils (%) (Auto) 0.4 % Basophils (%) (Auto) 0.0 % Neutrophils # (Auto) 8.37 K/uL (1.4-6.5) Lymphocytes # (Auto) 1.40 K/uL (1.2-3.4) Monocytes # (Auto) 1.21 K/uL (0.11-0.59) Eosinophils # (Auto) 0.04 K/uL (0-0.5) Basophils # (Auto) 0.00 K/uL (0-0.2) RDW Standard Deviation 53.9 fL (36.4-46.3) RDW Coefficient of Variation 19.2 % (11.5-14.5) Immature Granulocyte % (Auto) 0.5 % Immature Granulocyte # (Auto) 0.05 K/uL (0.00-0.02) Platelet Estimate DECREASED Prothrombin Time 16.9 SECONDS (9.0-12.0) Prothromb Time International Ratio 1.6 (0.9-1.1) Anion Gap 9.0 mmol/L (3-11) Est Creatinine Clear Calc Drug Dose 35.8 ml/min Estimated GFR () 28.7 Estimated GFR (Non- 24.8 BUN/Creatinine Ratio 41.6 (10-20) Calcium Level 7.8 mg/dl (8.5-10.1) Test 07/10/17 06:53 Bedside Glucose 94 mg/dl (70-90) Allergies Coded Allergies: Melatonin (Verified Allergy, Severe, RASH, 07/03/17) Penicillins (Verified Allergy, Unknown, UNLNOWN, 01/20/16) Medications Current Inpatient Medications Medications (Trade) Dose Ordered Sig/Isidoro Route Start Time Stop Time Status Last Admin Dose Admin Insulin Glargine (Lantus Solostar Pen) 5 units DAILY SC 07/05/17 09:00 08/04/17 08:59 07/10/17 07:56 5 UNITS Acetaminophen (Tylenol Tab) 650 mg Q4H PRN PO 07/04/17 00:45 08/03/17 00:44 Nitroglycerin (Nitrostat Tab) 0.4 mg UD PRN SL 07/04/17 00:45 08/03/17 00:44 07/05/17 07:58 0.4 MG Insulin Aspart (novoLOG ASPART) SLIDING SCALE If C... ACHS SC 07/04/17 07:00 08/03/17 06:59 07/10/17 07:56 1 UNITS Glucose (Glucose 40% Gel) 15-30 GRAMS 15 GRAMS... UD PRN PO 07/04/17 00:45 08/03/17 00:44 Glucose (Glucose Chew Tab) 4-8 Tablets 4 Tabl... UD PRN PO 07/04/17 00:45 08/03/17 00:44 Dextrose (Dextrose 50% 50ML Syringe) 25-50ML OF 50% DW IV FOR... UD PRN IV 07/04/17 00:45 08/03/17 00:44 Glucagon (Glucagon Inj) 1 mg UD PRN SQ 07/04/17 00:45 08/03/17 00:44 Anastrozole (Arimidex Tab) 1 mg DAILY PO 07/04/17 09:00 08/03/17 08:59 07/10/17 07:57 1 MG Docusate Sodium (coLACE CAP) 100 mg DAILY PO 07/04/17 09:00 08/03/17 08:59 07/10/17 07:52 100 MG Levothyroxine Sodium (Synthroid Tab) 112 mcg DAILYBB PO 07/04/17 06:00 08/03/17 06:59 07/10/17 06:10 112 MCG Pantoprazole Sodium (Protonix Tab) 40 mg DAILY PO 07/04/17 09:00 08/03/17 08:59 07/10/17 07:52 40 MG Potassium Chloride (Klor-Con Tab) 20 meq TID PO 07/04/17 09:00 08/03/17 08:59 07/10/17 07:51 20 MEQ Rosuvastatin Calcium (Crestor Tab) 10 mg DAILY PO 07/04/17 09:00 08/03/17 08:59 07/10/17 07:51 10 MG Sertraline HCl (Zoloft Tab) 150 mg DAILY PO 07/04/17 09:00 08/03/17 08:59 07/10/17 07:52 150 MG Febuxostat (Uloric) 40 mg DAILY PO 07/04/17 09:00 08/03/17 08:59 07/10/17 07:53 40 MG Aspirin (Ecotrin Tab) 81 mg QAM PO 07/04/17 09:00 08/03/17 08:59 07/10/17 07:52 81 MG Tramadol HCl (Ultram Tab) not relieved by tylenol @ Q6H PRN PO 07/04/17 01:15 08/03/17 01:14 Hydromorphone HCl (Dilaudid Inj) 0.5 mg Q3H PRN IV 07/04/17 01:15 07/18/17 01:14 Ondansetron HCl (Zofran Inj) 4 mg Q6H PRN IV 07/04/17 01:15 08/03/17 01:14 Nicotine (Nicoderm Cq 21MG Patch) 1 patch QAM TD 07/04/17 09:00 08/03/17 08:59 07/10/17 07:53 1 PATCH Miscellaneous (Remove Nicoderm Patch) 1 ea HS N/A 07/04/17 21:00 08/03/17 20:59 07/09/17 20:26 1 EA Ipratropium [place] (Atrovent 0.02% 0.5MG/2.5ML Neb) 0.5 mg Q6R INH 07/04/17 03:00 08/03/17 02:59 07/10/17 07:05 0.5 MG Levalbuterol (Xopenex 1.25MG/ 0.5ML Neb) 1.25 mg Q6R INH 07/04/17 03:00 08/03/17 02:59 07/10/17 07:05 1.25 MG Ipratropium [place] (Atrovent 0.02% 0.5MG/2.5ML Neb) 0.5 mg Q4H PRN INH 07/04/17 01:30 08/03/17 01:29 07/05/17 08:05 0.5 MG Levalbuterol (Xopenex 1.25MG/ 0.5ML Neb) 1.25 mg Q4H PRN INH 07/04/17 01:30 08/03/17 01:29 07/05/17 08:05 1.25 MG Levofloxacin (Consult) 1 ea UD PRN N/A 07/05/17 08:30 08/04/17 08:29 Clindamycin HCl (Cleocin Cap) 300 mg TID PO 07/05/17 11:00 07/12/17 10:59 07/10/17 07:52 300 MG Metoprolol Tartrate (Lopressor Tab) 25 mg TID PO 07/05/17 14:00 08/03/17 08:59 07/10/17 07:52 25 MG Pregabalin (Lyrica Cap) 150 mg BID PO 07/05/17 21:00 08/03/17 08:59 07/10/17 07:59 150 MG Spironolactone (Aldactone Tab) 25 mg QAM PO 07/06/17 09:00 08/05/17 08:59 07/10/17 07:53 25 MG Prednisone (PredniSONE TAB) 40 mg DAILY PO 07/06/17 09:00 08/05/17 08:59 07/10/17 07:52 40 MG Mometasone Furoate/ Formoterol Fumar (Dulera) 1 ea BID INH 07/07/17 21:00 08/06/17 20:59 07/10/17 07:51 1 EA Levofloxacin (Levaquin Tab) 750 mg Q2D@1100 PO 07/09/17 11:00 07/12/17 11:01 07/09/17 09:56 750 MG Polyethylene (Miralax Powder Packet) 17 gm DAILY PRN PO 07/09/17 00:45 08/08/17 00:44 Zolpidem Tartrate (Ambien Tab) 5 mg HS PRN PO 07/10/17 02:30 08/09/17 02:29 07/10/17 02:44 5 MG Furosemide (Lasix Tab) 40 mg BID17 PO 07/10/17 17:00 08/09/17 16:59 Warfarin Sodium (Coumadin Tab) 8 mg DAILY@16 PO 07/10/17 16:00 08/07/17 15:59 Impression (1) Diastolic CHF (2) Acute kidney injury (3) Chronic kidney disease (4) Volume overload (5) Diabetes Ms. Rojas was admitted to the hospital for evaluation of progressive LE edema, BAKER and LE cellulitis. She denies any change to her diet. She has been taking Furosemide 80 mg po bid and recently added PRN Zaroxolyn. Despite these changes her LE has worsened. Weight remains stable at 306 lbs. Echocardiogram reveals preserved LVEF 55 - 60% Recommendations --restart on torsemide 10 milligram p.o. daily on discharge and advise patient to increase to 10 milligram twice a day if she starts to gain weight more than 2 pounds a day --check renal function in 3-4 days after discharge --decrease potassium chloride to 20 milligram twice a day --please schedule for outpatient follow-up with [facility] and with nephrology clinic with Dr. Dawson in 2-3 weeks
[2017-07-10] MEDS ORDERED: PRED10TA PO (10:38)
[2017-07-10] MEDS ORDERED: LVQ750 PO (10:38)
[2017-07-10] MEDS ORDERED: MCRK20 PO (10:38)
[2017-07-10] MEDS ORDERED: CLIN300C10 PO (10:38)
[2017-07-10] MEDS ORDERED: LPR25 PO (10:38)
[2017-07-10] MEDS ORDERED: TORS10TA14 PO (10:38)
[2017-07-10] MEDS ORDERED: VNTHFA/IN INH (10:39)
--- NOTE | 2017-07-10 10:45 | Discharge Instructions ---
Discharge Instructions Date of Service Jul 10, 2017. Admission Reason for Admission: Respiratory Failure, Acute Discharge Discharge Diagnosis / Problem: ACUTE RESP FAILURE, ACUTE SYSTOLIC CHF, COPD EX, ARF Discharge Goals Goal(s): Decrease discomfort, Improve function Activity Recommendations Activity Limitations: resume your previous activity . Instructions / Follow-Up Instructions / Follow-Up FOLLOWUP WITH FAMILY DOCTOR IN 4-5 DAYS. FOLLOWUP WITH CARDIOLOGY IN 4-5 DAYS( PATIENT WILL BE CALLED WITH APPOINTMENT). FOLLOWUP WITH NEPHROLOGY IN 1- 2WEEKS FOLLOWUP WITH COUMADIN CLINIC IN 4-5 DAYS. FOLLOWUP WITH FAMILY DOCTOR FOR DIABETES. HBA1C LEVELS 7.0. LAB: BMP WITH MG LEVELS IN 4-5 DAYS AND FOLLOW RESULTS WITH FAMILY DOCTOR/ CARDIOLOGY AND NEPHROLOGY. PLEASE GO THROUGH THE MEDICATION LIST FOR CHANGES IN MEDICATIONS. TO WEIGHT DAILY. IF GAINS MORE THEN TWO POUNDS TO INCREASE TORSEMIDE(DEMADEX) TO 10MG TWICE DAILY. Call your Primary Care doctor if any of the following symptoms or problems start or get worse: * Shortness of breath or difficulty breathing * Wake up at night short of breath * Chest pain * Cough * Swelling of your hands, feet, or legs * More fatigued or tired with your normal activity * Palpitations - sudden fast heart beats WEIGHT * Weigh yourself every morning after using the bathroom. * Use the same scale. * Wear the same amount of clothing. * Write your weight down on a chart. * Call your Primary Care doctor if you gain more than 2-3 pounds in 1-2 days. MEDICATIONS * Use this discharge instruction sheet for medication instructions. * Take your medications at the time your doctor ordered. * Do not skip a dose of your medicines. * If you miss a dose of medicine, take it as soon as possible, but DO NOT DOUBLE A DOSE. * Read your medicine information when you get home. * Know all of the side effects of your medicine. If in doubt, ask your pharmacist * Call your Primary Care doctor's office if you have any side effects. * Be sure all of your doctors know what medicine and herbs you take (including cold, flu, and herbal medicine). Take the following with you to your follow-up doctor appointments: * Weight Chart * Medication List * List of questions Do not drink excessive alcohol, beer or wine. Current Hospital Diet Patient's current hospital diet: Diabetes Type 2 Diet, AHA Diet (Heart Healthy) Discharge Diet Recommended Diet: AHA Diet (Heart Healthy), Diabetes Type 2 Diet Pending Studies Studies pending at discharge: no Laboratory Results Hemoglobin A1c Test 07/03/17 20:50 Range/Units Estimated Average Glucose 154 mg/dl Hemoglobin A1c 7.0 H 4.5-5.6 % Medical Emergencies . Who to Call and When: Call 911 or go to the Emergency Room if: * If at any time you feel your situation is an emergency * You have tightness or pain in your chest that does not go away with rest or Nitroglycerin * You are very short of breath even with rest . Non-Emergent Contact Non-Emergency issues call your: Primary Care Provider . . "Provider Documentation" section prepared by Jean-Claude Juares. . VTE Core Measure Inpt VTE Proph given/why not?: Warfarin (Coumadin)
[2017-07-10 11:04] VITALS: BP 110/74; PULSE 77; TEMP 36.5; O2SAT 92
[2017-07-10 11:39] VITALS: BP 98/69; PULSE 82; TEMP 37; O2SAT 94
[2017-07-10] MEDS ORDERED: WARFARIN SOD 4 MG TAB PO SCH (16:00)
[2017-07-10] MEDS ORDERED: FUROSEMIDE 40 MG TAB PO SCH (17:00)
--- NOTE | 2017-07-10 18:02 | Progress Note ---
Internal Med Progress Note Date of Service: Jul 10, 2017. Provider Documentation: SUBJECTIVE: resting comfortably on the chair sob better no chest pain no nausea ambulates ok want to go home OBJECTIVE: Vital Signs-as noted below Exam: General-alert and oriented. Not in distress ENT-Normal hearing Neck-no neck masses Lungs-CTA b/l no wheezing or crackles Heart-S1 and S2 heard. Regular rate and rhythm, no murmurs Abdomen-Soft Bowel sounds present no tenderness present no distension Extremities- pedal edema present no erythema. Neuro-alert and awake moves extremities Lab data as noted below. ASSESSMENT & PLAN: 72 / F with history of Chronic Respiratory Failure on home O2, CAD/CABG, HTN, CKD 3, ACUTE ON CHRONIC HYPOXIC RESPIRATORY FAILURE LIKELY FROM COPD EXACERBATION FROM ACUTE BRONCHITIS, POSSIBLE BILATERAL LOWER LOBE PNEUMONIA VS. ASPIRATION was started on clindamycin and Levaquin, iv steroids currently on po steroids on Levalbuterol/Ipratropium q4h and PRN continued Dulera and Tudorza CPAP ordered at HS improving v/q scan low probability barium swallow shows moderate dysmotility Speech recommends out patient speech therapy pulmonary signed off discharged on prednisone taper, home inhalers and prn albuterol f/u with pcp ACUTE ON CHRONIC DIASTOLIC CHF EXACERBATION ? on Lasix 80mg IV--> transitioned to Torsemide and Spironolactone--> Torsemide dose decreased in light of crea increasing currently diuretics on hold for arf appreciate Nephro and Cardio SVC recommendations Nephrology recommends to discharge on torsemide 10mg daily and continue Aldactone 25mg daily and cut back on potassium supplements 10meq bid close f/u with labs next week followup with cardiology and nephrology CHEST PAIN, ANGINA FROM HTN URGENCY?, Resolved HISTORY OF CAD/CABG/STENT EKG a flutter rate controlled cardiac markers negative echo unremarkable currently asymptomatic LOWER EXTREMITY EDEMA Doppler US: negative management as noted above- currently diuretics on hold component of Cellulitis? on Clindamycin discharged on po clindamycin and Levaquin to complete the course PARESTHESIAS, DIGIT4 AND 5, RIGHT likely Ulnar Nerve involvement EMG as outpatient CAD/CABG stable' home meds ATRIAL FLUTTER INR 1.7 today Coumadin 4mg resumed usually on Coumadin 8mg daily discharged on home Coumadin dose f/u with Coumadin clinic Hypertension on Metoprolol, usually on 37.5mg po daily, now on 25mg TID will monitor f/u with cardiology ARF on CKD 3 presented with Cr 1.8 crea at 2.4 yesterday cr 1.9 today- at baseline f/u labs next week Breast cancer, left, status post surgery, radiation, ongoing hormone therapy. Ongoing tobacco abuse. Nicotine Patch JONATHON CPAP q hs discharged home with home health Vital Signs: Date Time Temp Pulse Resp B/P (MAP) Pulse Ox O2 Delivery O2 Flow Rate FiO2 07/10/17 11:39 37.0 82 18 98/69 (79) 94 3.0 07/10/17 11:04 36.5 77 18 92 Nasal Cannula 07/10/17 08:00 Nasal Cannula 07/10/17 07:42 36.5 77 18 110/74 (86) 92 2.0 07/10/17 07:05 79 16 94 Nasal Cannula 3.0 07/10/17 04:00 Nasal Cannula 3.0 07/10/17 03:33 36.5 72 18 117/67 (84) 94 Nasal Cannula 3.0 Humidified Oxygen 07/10/17 02:54 86 16 95 Nasal Cannula 3.0 07/10/17 00:00 Nasal Cannula 3.0 07/09/17 23:35 36.6 80 17 104/69 (81) 94 Nasal Cannula 3.0 Humidified Oxygen 07/09/17 20:05 Nasal Cannula 2.0 07/09/17 19:40 37.1 87 18 111/71 (84) 93 Nasal Cannula 3.0 Humidified Oxygen 07/09/17 19:07 87 16 92 Nasal Cannula 3.0 Lab Results: Results Past 24 Hours Test 07/09/17 20:14 07/10/17 05:09 07/10/17 06:53 Range/Units Bedside Glucose 143 94 70-90 mg/dl White Blood Count 11.07 4.8-10.8 K/uL Red Blood Count 5.82 4.2-5.4 M/uL Hemoglobin 14.4 12.0-16.0 g/dL Hematocrit 44.9 37-47 % Mean Corpuscular Volume 77.1 80-100 fL Mean Corpuscular Hemoglobin 24.7 25-34 pg Mean Corpuscular Hemoglobin Concent 32.1 32-36 g/dl Platelet Count 105 130-400 K/uL Neutrophils (%) (Auto) 75.6 % Lymphocytes (%) (Auto) 12.6 % Monocytes (%) (Auto) 10.9 % Eosinophils (%) (Auto) 0.4 % Basophils (%) (Auto) 0.0 % Neutrophils # (Auto) 8.37 1.4-6.5 K/uL Lymphocytes # (Auto) 1.40 1.2-3.4 K/uL Monocytes # (Auto) 1.21 0.11-0.59 K/uL Eosinophils # (Auto) 0.04 0-0.5 K/uL Basophils # (Auto) 0.00 0-0.2 K/uL RDW Standard Deviation 53.9 36.4-46.3 fL RDW Coefficient of Variation 19.2 11.5-14.5 % Immature Granulocyte % (Auto) 0.5 % Immature Granulocyte # (Auto) 0.05 0.00-0.02 K/uL Platelet Estimate DECREASED Prothrombin Time 16.9 9.0-12.0 SECONDS Prothromb Time International Ratio 1.6 0.9-1.1 Sodium Level 139 136-145 mmol/L Potassium Level 4.1 3.5-5.1 mmol/L Chloride Level 103 98-107 mmol/L Carbon Dioxide Level 27 21-32 mmol/L Anion Gap 9.0 3-11 mmol/L Blood Urea Nitrogen 82 7-18 mg/dl Creatinine 1.96 0.60-1.20 mg/dl Est Creatinine Clear Calc Drug Dose 35.8 ml/min Estimated GFR () 28.7 Estimated GFR (Non- 24.8 BUN/Creatinine Ratio 41.6 10-20 Random Glucose 94 70-99 mg/dl Calcium Level 7.8 8.5-10.1 mg/dl
--- NOTE | 2017-07-10 18:14 | Discharge Summary ---
Discharge Summary Date of Service Jul 10, 2017. Discharge Summary Admission Date: Jul 03, 2017 at 23:46 Discharge Date: Jul 10, 2017 Discharge Disposition: Home with services Principal Diagnosis: ACUTE ON CHRONIC HYPOXIC RESPIRATORY FAILURE LIKELY FROM COPD EXACERBATION FROM ACUTE BRONCHITIS, POSSIBLE BILATERAL LOWER LOBE PNEUMONIA VS. ASPIRATION. ACUTE ON CHRONIC DIASTOLIC CHF EXACERBATION CHEST PAIN, ANGINA FROM HTN URGENCY?, Resolved HISTORY OF CAD/CABG/STENT Secondary Diagnoses/Problems: chronic respiratory failure secondary to COPD on home O2, CAD status post CABG, chronic CHF, leaky valve as per daughter, PVD, history of atrial fibrillation/recurrent PE/DVT on anticoagulation. breast cancer left status post lumpectomy sp radiation, on hormonal treatment, ongoing tobacco abuse, JONATHON, DM2, diet controlled, chronic renal insufficiency stage III Procedures: LOWER EXT DOPPLER: No DVT within the right or left lower extremity. CXR: 1. Cardiomegaly and pulmonary vascular congestion without overt pulmonary edema. 2. Subsegmental left greater than right bibasilar opacities suggest atelectasis. CT HEAD: There is no hemorrhage, mass effect, or evidence of acute territorial ischemia by CT criteria. LUNG VQ SCAN: 1. Above findings are consistent with a very low probability scan. No perfusion defects identified. 2. Heterogeneous appearance to the lungs on the ventilation scan suggests emphysema. BARIUM SWALLOW: 1. No esophageal mass or stricture. 2. Moderate esophageal dysmotility. ECHO:Normal LV chamber size with mild concentric LVH. * Normal LV systolic function, abnormal septal wall motion consistent with post-operative state, EF 55-60%. * Grade I diastolic dysfunction. * A bicuspid aortic valve cannot be excluded. Mildly calcified. Trace aortic regurgitation. No hemodynamically significant valvular aortic stenosis. * Small, loculated anterior pericardial effusion. Stranding is present to suggest chronicity Consultations: CARDIOLOGY NEPHROLOGY GI PULMONARY Medication Reconciliation New Medications: Albuterol Hfa (Ventolin Hfa) 200 Puffs/09752 Mcg Aers 2 PUFFS INH Q4 PRN for SOB/Wheezing, #1 INHALER 2 Refills Clindamycin Hcl (Clindamycin Hcl) 300 Mg Cap 300 MG PO TID for 2 Days Potassium Chloride (Klor-Con M20) 20 Meq Tabcr 20 MEQ PO BID for 30 Days, 1 Refill Prednisone Tab (Prednisone) 10 Mg Tab 30 MG PO UD, #13 TAB PREDNISONE 30MG PO DAILY X 2 DAYS THEN PREDNISONE 20MG PO DAILY X 2 DAYS THEN PREDNISONE 10MG PO DAILY X 2 DAYS THEN PREDNISONE 5MG PO DAILY X 2 DAYS THEN STOP. Torsemide (Demadex) 10 Mg Tab 10 MG PO DAILY for 30 Days, #30 TAB 1 Refill Levofloxacin (Levofloxacin) 750 Mg Tab 750 MG PO Q2D@1100, #2 TAB Metoprolol Tartrate (Lopressor) 25 Mg Tab 25 MG PO TID for 30 Days, #90 TAB 1 Refill Continued Medications: Aclidinium Agar (Tudorza Pressair) 400 Mcg/Act Aer INH UD Anastrozole (Arimidex) 1 Mg Tab 1 MG PO DAILY, TAB Calcium Carbonate-Vitamin D W/ (Caltrate 600 Plus) 1 Tab Tab 1 TAB PO DAILY, TAB Docusate Sodium (Docusate Sodium) 100 Mg Cap 1 CAP PO DAILY for 7 Days, #7 CAP Febuxostat (Uloric) 40 Mg Tab 1 TAB PO DAILY for 30 Days, #30 TAB 5 Refills Levothyroxine Sodium (Synthroid) 112 Mcg Tab 112 MCG PO DAILY, TAB Magnesium Oxide (Mag-Ox) 400 Mg Tab 400 MG PO DAILY, TAB Mometasone Furoate-Formoterol (Dulera 100/5 Mcg) 1 Aer Aer 1 AER INH BID, INHALER Pantoprazole (Protonix) 40 Mg Tab 40 MG PO DAILY, #30 TAB Pregabalin (Lyrica) 150 Mg Cap 150 MG PO TID, CAP Rosuvastatin Calcium (Rosuvastatin Calcium) 10 Mg Tab 10 MG PO DAILY Sertraline (Zoloft) 100 Mg Tab 150 MG PO DAILY, TAB Spironolactone (Aldactone) 25 Mg Tab 25 MG PO DAILY, TAB Warfarin Sod (Jantoven) 4 Mg Tab 2 TABS PO DAILY, TAB Discontinued Medications: Furosemide (Lasix) 80 Mg Tab 80 MG PO BID, TAB Metoprolol Tartrate (Lopressor) (Lopressor) 25 Mg Tab 37.5 MG PO QAM, TAB Potassium Ext Rel (Klor-Con) 20 Meq Tabcr 20 MEQ PO TID, TAB Admission Information HPI (per Admitting provider): History obtained from patient, daughter and records. Medical history significant for chronic respiratory failure secondary to COPD on home O2, CAD status post CABG, chronic CHF, leaky valve as per daughter, PVD, history of atrial fibrillation/recurrent PE/DVT on anticoagulation. breast cancer left status post lumpectomy sp radiation, on hormonal treatment, ongoing tobacco abuse, JONATHON, DM2, diet controlled, chronic renal insufficiency stage III as per daughter. In the last week patient noted cough symptoms initially clear later productive of yellow sputum. No chest pain. Some coughing with meals. Patient and daughter also noted increased bilateral leg swelling and redness, progressive despite compliance with diuretic Rx. Denies dietary indiscretion. No fever no chills. Weight gain of 10 pounds in a week as per patient. Increasing shortness of breath. Patient also noted right upper extremity weakness in the last week, compliant with medications. No unusual headache, no shoulder pain, no neck pain. No recollection of trauma. Patient brought to the ER. Physical Exam (per Admitting): VITAL SIGNS: Blood pressure noted to be 110/71, late 87/50, pulse rate 78 later 110, RR 20, temperature 36.4, sats 89 on room air. GENERAL: Noted to be obese, comfortable, no overt respiratory distress. Currently receiving a breathing treatment at the emergency room. SKIN: Normal color, warm. HEENT: sparse hair. [place] palpebral conjuctivae. No ptosis, Dry buccal mucosa. NECK: Short neck. No tenderness. CHEST: Healed incisional sternal scar. No tenderness. Expiratory wheezes. CV: Tachycardic. Palpable LE pulses. ABDOMEN: Some distention, nontender. EXTREMITIES: Bilateral lower extremity edema, erythema, no tenderness. No gross deformity. NEUROLOGIC: Coherent. No gross focality. Hospital Course 72 / F with history of Chronic Respiratory Failure on home O2, CAD/CABG, HTN, CKD 3, ACUTE ON CHRONIC HYPOXIC RESPIRATORY FAILURE LIKELY FROM COPD EXACERBATION FROM ACUTE BRONCHITIS, POSSIBLE BILATERAL LOWER LOBE PNEUMONIA VS. ASPIRATION was started on clindamycin and Levaquin, iv steroids currently on po steroids on Levalbuterol/Ipratropium q4h and PRN continued Dulera and Tudorza CPAP ordered at HS improving v/q scan low probability barium swallow shows moderate dysmotility Speech recommends out patient speech therapy. SPEECH RECOMMENDS: Avoid foods that are dry, thick, pasty, doughy. Use condiments such as gravy/sauce to assist in keeping foods moist/slippery. pulmonary signed off discharged on prednisone taper, home inhalers and prn albuterol f/u with pcp ACUTE ON CHRONIC DIASTOLIC CHF EXACERBATION ? on Lasix 80mg IV--> transitioned to Torsemide and Spironolactone--> Torsemide dose decreased in light of crea increasing currently diuretics on hold for arf appreciate Nephro and Cardio SVC recommendations Nephrology recommends to discharge on torsemide 10mg daily and continue Aldactone 25mg daily and cut back on potassium supplements 10meq bid close f/u with labs next week followup with cardiology and nephrology CHEST PAIN, ANGINA FROM HTN URGENCY?, Resolved HISTORY OF CAD/CABG/STENT EKG a flutter rate controlled cardiac markers negative echo unremarkable currently asymptomatic LOWER EXTREMITY EDEMA Doppler US: negative management as noted above- currently diuretics on hold component of Cellulitis? on Clindamycin discharged on po clindamycin and Levaquin to complete the course PARESTHESIAS, DIGIT4 AND 5, RIGHT likely Ulnar Nerve involvement EMG as outpatient CAD/CABG stable' home meds ATRIAL FLUTTER INR 1.7 today Coumadin 4mg resumed usually on Coumadin 8mg daily discharged on home Coumadin dose f/u with Coumadin clinic Hypertension on Metoprolol, usually on 37.5mg po daily, now on 25mg TID will monitor f/u with cardiology ARF on CKD 3 presented with Cr 1.8 crea at 2.4 yesterday cr 1.9 today- at baseline f/u labs next week Breast cancer, left, status post surgery, radiation, ongoing hormone therapy. Ongoing tobacco abuse. Nicotine Patch JONATHON CPAP q hs discharged home with home health Total time spent on discharge = This includes examination of the patient, discharge planning, medication reconciliation, and communication with other providers. Discharge Instructions Discharge Instructions Date of Service Jul 10, 2017. Admission Reason for Admission: Respiratory Failure, Acute Discharge Discharge Diagnosis / Problem: ACUTE RESP FAILURE, ACUTE SYSTOLIC CHF, COPD EX, ARF Discharge Goals Goal(s): Decrease discomfort, Improve function Activity Recommendations Activity Limitations: resume your previous activity . Instructions / Follow-Up Instructions / Follow-Up FOLLOWUP WITH FAMILY DOCTOR IN 4-5 DAYS. FOLLOWUP WITH CARDIOLOGY IN 4-5 DAYS( PATIENT WILL BE CALLED WITH APPOINTMENT). FOLLOWUP WITH NEPHROLOGY IN 1- 2WEEKS FOLLOWUP WITH COUMADIN CLINIC IN 4-5 DAYS. FOLLOWUP WITH FAMILY DOCTOR FOR DIABETES. HBA1C LEVELS 7.0. LAB: BMP WITH MG LEVELS IN 4-5 DAYS AND FOLLOW RESULTS WITH FAMILY DOCTOR/ CARDIOLOGY AND NEPHROLOGY. PLEASE GO THROUGH THE MEDICATION LIST FOR CHANGES IN MEDICATIONS. TO WEIGHT DAILY. IF GAINS MORE THEN TWO POUNDS TO INCREASE TORSEMIDE(DEMADEX) TO 10MG TWICE DAILY. Call your Primary Care doctor if any of the following symptoms or problems start or get worse: * Shortness of breath or difficulty breathing * Wake up at night short of breath * Chest pain * Cough * Swelling of your hands, feet, or legs * More fatigued or tired with your normal activity * Palpitations - sudden fast heart beats WEIGHT * Weigh yourself every morning after using the bathroom. * Use the same scale. * Wear the same amount of clothing. * Write your weight down on a chart. * Call your Primary Care doctor if you gain more than 2-3 pounds in 1-2 days. MEDICATIONS * Use this discharge instruction sheet for medication instructions. * Take your medications at the time your doctor ordered. * Do not skip a dose of your medicines. * If you miss a dose of medicine, take it as soon as possible, but DO NOT DOUBLE A DOSE. * Read your medicine information when you get home. * Know all of the side effects of your medicine. If in doubt, ask your pharmacist * Call your Primary Care doctor's office if you have any side effects. * Be sure all of your doctors know what medicine and herbs you take (including cold, flu, and herbal medicine). Take the following with you to your follow-up doctor appointments: * Weight Chart * Medication List * List of questions Do not drink excessive alcohol, beer or wine. Current Hospital Diet Patient's current hospital diet: Diabetes Type 2 Diet, AHA Diet (Heart Healthy) Discharge Diet Recommended Diet: AHA Diet (Heart Healthy), Diabetes Type 2 Diet Pending Studies Studies pending at discharge: no Laboratory Results Hemoglobin A1c Test 07/03/17 20:50 Range/Units Estimated Average Glucose 154 mg/dl Hemoglobin A1c 7.0 H 4.5-5.6 % Medical Emergencies . Who to Call and When: Call 911 or go to the Emergency Room if: * If at any time you feel your situation is an emergency * You have tightness or pain in your chest that does not go away with rest or Nitroglycerin * You are very short of breath even with rest . Non-Emergent Contact Non-Emergency issues call your: Primary Care Provider . . "Provider Documentation" section prepared by Jean-Claude Juares. . VTE Core Measure Inpt VTE Proph given/why not?: Warfarin (Coumadin) Additional Copies To Esequiel Bran D.O.
== END 2017-07-10 12:00 | disposition home health service (06) | DRG 291 ==
LOC: C.EDB 20:08 → C.2E 23:46 → ENRESERV 23:53
PROVIDERS: ADMIT Internal Medicine; ATTEND Internal Medicine
DX: I50.33 Acute on chronic diastolic (congestive) heart failure (principal); J96.21 Acute and chronic respiratory failure with hypoxia; L03.116 Cellulitis of left lower limb; J44.1 Chronic obstructive pulmonary disease with (acute) exacerbation; N17.9 Acute kidney failure, unspecified; Z68.43 Body mass index [BMI] 50.0-59.9, adult; I48.92 Unspecified atrial flutter; E66.9 Obesity, unspecified; F17.200 Nicotine dependence, unspecified, uncomplicated; N18.3 Chronic kidney disease, stage 3 (moderate); E11.9 Type 2 diabetes mellitus without complications; G47.33 Obstructive sleep apnea (adult) (pediatric); Z79.01 Long term (current) use of anticoagulants; Z99.81 Dependence on supplemental oxygen

== ENCOUNTER → 2017-12-02 | Outpatient (CLI) | payer OTHER ==
[~2017-12-02] MED LIST changes: -ALBUAER2 INH; +ANAS1TAB19 PO; -ASPI81TA28 PO; +CALCTAB7 PO; +CLIN300C10 PO; -FURO80TA63 PO; +LPR25 PO; +LVQ750 PO; +MCRK20 PO; -METO2.5T PO; -METO25TA56 PO; +MOME100A INH; -MOME200A INH; -POTA20TA16 PO; +PRED10TA PO; +ROSU10TA35 PO; +TORS10TA14 PO; -VITAMIN D2 PO; +VNTHFA/IN INH; -WARF3TAB6 PO; +WARF4TAB8 PO; -WARF6TAB5 PO
[2017-12-02 12:30] LABS: HEMATOCRIT 44.9 % (37-47); MEAN CORPUSCULAR HEMOGLOBIN 24.3 pg (25-34); MEAN CORPUSCULAR HGB CONC 31.2 g/dl (32-36); PLATELET COUNT 159 K/uL (130-400); RED CELL DISTRIBUTION WIDTH CV 18.5 % (11.5-14.5); RED CELL DISTRIBUTION WIDTH SD 52.7 fL (36.4-46.3); WHITE BLOOD COUNT 7.96 K/uL (4.8-10.8)
[2017-12-02 12:59] LABS: ALBUMIN 3.4 gm/dl (3.4-5.0); BLOOD UREA NITROGEN 55 mg/dl (7-18); CARBON DIOXIDE 34 mmol/L (21-32); CREATININE 1.93 mg/dl (0.60-1.20); GLUCOSE 56 mg/dl (70-99); PHOSPHORUS 3.4 mg/dl (2.5-4.9); POTASSIUM 4.4 mmol/L (3.5-5.1); SODIUM 141 mmol/L (136-145)
== END | disposition home or self-care (01) ==
LOC: C.LABPBG 08:27
PROVIDERS: ATTEND Internal Medicine Nephrology
DX: E55.9 Vitamin D deficiency, unspecified (principal); I12.9 Hypertensive chronic kidney disease with stage 1 through stage 4 chronic kidney disease, or unspecified chronic kidney disease; R60.0 Localized edema; N18.3 Chronic kidney disease, stage 3 (moderate); R80.9 Proteinuria, unspecified; N25.81 Secondary hyperparathyroidism of renal origin

== ENCOUNTER 2018-03-17 10:03 | Inpatient (IN) | payer OTHER ==
[2018-03-17] VITALS (9 sets, daily range): BP systolic 92–115; BP diastolic 54–68; PULSE 63–85; TEMP 36–36.5; O2SAT 91–97; Ht 162.6 cm; Wt 140.0 kg
[~2018-03-17] VITALS: Ht 162.6 cm; Wt 140.0 kg
[~2018-03-17 10:03] MED LIST changes: -ANAS1TAB19 PO; +ANAS1TAB59 PO; -PRED10TA PO; +ROSU10TA26 PO; -ROSU10TA35 PO
[2018-03-17] MEDS ORDERED: SODIUM CHLORIDE 0.9% 1000ML 1,000 ML IV STA ×2 (10:18→13:35)
[2018-03-17 10:24] LABS: MEAN CORPUSCULAR HGB CONC 30.9 g/dl (32-36)
[2018-03-17 10:32] LABS: HEMATOCRIT 44.3 % (37-47); HEMOGLOBIN 13.7 g/dL (12.0-16.0); MEAN CELL VOLUME 69.1 fL (80-100); MEAN CORPUSCULAR HEMOGLOBIN 21.4 pg (25-34); RED CELL DISTRIBUTION WIDTH CV 22.4 % (11.5-14.5); RED CELL DISTRIBUTION WIDTH SD 55.3 fL (36.4-46.3); WHITE BLOOD COUNT 10.99 K/uL (4.8-10.8)
[2018-03-17 10:35] LABS: INR 2.2 (0.9-1.1); PTT PATIENT 39.4 SECONDS (21.0-31.0)
[2018-03-17 10:45] LABS: ALBUMIN 2.9 gm/dl (3.4-5.0); ALKALINE PHOSPHATASE 104 U/L (45-117); ALT/SGPT 19 U/L (12-78); AST/SGOT 16 U/L (15-37); BLOOD UREA NITROGEN 59 mg/dl (7-18); CALCIUM 8.4 mg/dl (8.5-10.1); CARBON DIOXIDE 28 mmol/L (21-32); GLUCOSE 128 mg/dl (70-99); POTASSIUM 4.2 mmol/L (3.5-5.1); SODIUM 140 mmol/L (136-145); TOTAL PROTEIN 7.5 gm/dl (6.4-8.2)
--- NOTE | 2018-03-17 11:01 | DIAGNOSTIC IMAGING REPORT ---
HEAD WITHOUT CONTRAST (CT) CT DOSE: HISTORY: Mental status change. Trauma. AMS TECHNIQUE: Multiaxial CT images of the head were performed without the use of intravenous contrast. A dose lowering technique was utilized adhering to the principles of ALARA. Comparison: 07/04/2017 Findings: The paranasal sinuses and mastoid air cells are clear. The calvarium and skull base are intact. The ventricles and sulci are within normal limits. There is no mass, hematoma, midline shift, or acute infarct. Chronic small vessel change of aging Impression: No acute intracranial abnormality. Chronic small vessel change of aging. The above report was generated using voice recognition software. It may contain grammatical, syntax or spelling errors. Electronically signed by: Tony Butts M.D. 03/17/2018 10:59 AM Dictated Date/Time: 03/17/2018 10:58 AM
[2018-03-17] MEDS ORDERED: ASPI81TA28 PO (11:02)
[2018-03-17] MEDS ORDERED: FLUT1INH INH (11:02)
[2018-03-17] MEDS ORDERED: TORS10TA14 PO (11:02)
[2018-03-17] MEDS ORDERED: ERGO500037 PO (11:04)
--- NOTE | 2018-03-17 11:04 | DIAGNOSTIC IMAGING REPORT ---
CERVICAL SPINE W/O CT DOSE: 1201.41 mGy.cm CLINICAL HISTORY: 72 years-old Female with neck pain . Acute neck pain COMPARISON: CT head of same day. TECHNIQUE: Multiple axial CT images of the cervical spine were obtained without contrast. A dose lowering technique was utilized adhering to the principles of ALARA. FINDINGS: Median sternotomy wires are partially imaged. Emphysematous changes about the imaged lung apices. Atherosclerosis of the aorta and carotid vasculature. Medial course of the bilateral common carotid arteries. Soft tissues are within normal limits. Mastoid air cells and middle ear cavities appear clear. 2 mm anterolisthesis C3 on C4 and C4 on C5, likely on a degenerative basis. Multilevel severe facet arthropathy with mild to moderate multilevel spondylitic spurring. Severe intervertebral disc space narrowing with circumferential disc osteophyte complex formation at C5-C6. Mild convex left curvature of the cervical spine. No acute fracture or subluxation is identified. Evaluation of the central canal and neuroforamina is better assessed by MRI. Multilevel foraminal narrowing. For example, there is severe right-sided foraminal stenosis at C5-C6. No prevertebral soft tissue swelling. IMPRESSION: No acute cervical spine fracture or subluxation. The above report was generated using voice recognition software. It may contain grammatical, syntax or spelling errors. Electronically signed by: Brandin Dietz M.D. 03/17/2018 11:03 AM Dictated Date/Time: 03/17/2018 10:58 AM
[2018-03-17 11:14] LABS: PLATELET COUNT 169 K/uL (130-400)
[2018-03-17 11:15] LABS: BASO % 0.3 %; BASO ABS # 0.03 K/uL (0-0.2); EOS % 0.4 %; EOS ABS # 0.04 K/uL (0-0.5); IG# 0.03 K/uL (0.00-0.02); LYMPH % 13.3 %; LYMPH ABS # 1.46 K/uL (1.2-3.4); MONO % 6.9 %; MONO ABS # 0.76 K/uL (0.11-0.59); NEUT % 78.8 %; NEUT ABS # 8.67 K/uL (1.4-6.5)
--- NOTE | 2018-03-17 12:04 | DIAGNOSTIC IMAGING REPORT ---
CHEST ONE VIEW PORTABLE CLINICAL HISTORY: Acute change in mental status COMPARISON STUDY: 07/07/2017 FINDINGS: The heart is enlarged. There is mild interstitial pulmonary edema. There is no focal pulmonary consolidation. There is a probable small left pleural effusion.[ IMPRESSION: Cardiomegaly and mild interstitial pulmonary edema. Electronically signed by: Wan Gonzales M.D. 03/17/2018 12:03 PM Dictated Date/Time: 03/17/2018 12:02 PM
--- NOTE | 2018-03-17 12:05 | DIAGNOSTIC IMAGING REPORT ---
L KNEE 2 VIEWS ROUTINE CLINICAL HISTORY: Left knee pain COMPARISON: None. DISCUSSION: There is chondrocalcinosis. There are no acute fractures. There is mild medial joint compartment narrowing. There are surgical clips in the soft tissues likely vascular. IMPRESSION: 1. Chondrocalcinosis and mild osteoarthritic change 2. No acute fractures Electronically signed by: Wan Gonzales M.D. 03/17/2018 12:04 PM Dictated Date/Time: 03/17/2018 12:03 PM
--- NOTE | 2018-03-17 12:05 | DIAGNOSTIC IMAGING REPORT ---
R FOOT MIN 3 VIEWS ROUTINE CLINICAL HISTORY: r foot pain pain COMPARISON: 01/20/2016 DISCUSSION: Mild generalized soft tissue edema. Generalized degenerative and postoperative change. There are findings of a partial ankle fusion. This has been described previously. No well-defined acute bony abnormality. Generalized soft tissue edema primarily over the dorsal aspect of the metatarsal region. IMPRESSION: Soft tissue edema. Degenerative change. Osteopenia. The above report was generated using voice recognition software. It may contain grammatical, syntax or spelling errors. Electronically signed by: Tony Butts M.D. 03/17/2018 12:04 PM Dictated Date/Time: 03/17/2018 12:03 PM
--- NOTE | 2018-03-17 12:05 | DIAGNOSTIC IMAGING REPORT ---
PELVIS 1 OR 2 VIEW ROUTINE, R FEMUR 2 VIEWS ROUTINE HISTORY: 72 years-old Female bl hip pain acute pelvic and right femoral pain COMPARISON: None available TECHNIQUE: AP view of the pelvis with 2 views of the right femur FINDINGS: PELVIS: Degenerative changes of the pubic symphysis, SI joints and lower lumbar spine. Mild osteoarthritis of the bilateral femoral acetabular joints. Bones appear mildly demineralized. There is no acute fracture or dislocation. Vascular calcifications are noted. Vascular clips project over the bilateral inguinal distributions. RIGHT FEMUR: Mild osteoarthritis of the right femoral acetabular joint. No acute fracture or dislocation. No avascular necrosis. Degenerative changes of the knee with chondrocalcinosis. IMPRESSION: No acute fracture or dislocation. The above report was generated using voice recognition software. It may contain grammatical, syntax or spelling errors. Electronically signed by: Brandin Dietz M.D. 03/17/2018 12:04 PM Dictated Date/Time: 03/17/2018 12:02 PM
--- NOTE | 2018-03-17 12:06 | DIAGNOSTIC IMAGING REPORT ---
R KNEE 1 OR 2 VIEWS ROUTINE CLINICAL HISTORY: AMS, B/L KNEE PAIN pain COMPARISON: None. DISCUSSION: Mild degenerative change all major joint compartments. Chondrocalcinosis. No significant joint effusion. No evidence for fracture or dislocation. There is no evidence for soft tissue swelling. IMPRESSION: 1. Moderate degenerative change all major joint compartments. 2. Chondrocalcinosis. The above report was generated using voice recognition software. It may contain grammatical, syntax or spelling errors. Electronically signed by: Tony Butts M.D. 03/17/2018 12:05 PM Dictated Date/Time: 03/17/2018 12:04 PM
--- NOTE | 2018-03-17 12:07 | DIAGNOSTIC IMAGING REPORT ---
R TIBIA/FIBULA 2 VIEWS ROUTINE HISTORY: 72 years-old Female r tibi pain acute pain of the right lower leg COMPARISON: Right knee radiographs of same day TECHNIQUE: 2 views of the right tibia and fibula FINDINGS: Moderate soft tissue swelling about the lower leg. Degenerative changes of the right knee with chondrocalcinosis. At least moderate tibiotalar osteoarthritis. ORIF changes about the ankle with K wire and long cannulated screw fixating a remote medial malleolar fracture. Sclerosis with mild articular flattening of the talus. Cannulated screw fixates remote talar fracture. Surgical clips project over the medial tissues of the distal lower leg. No acute fracture or dislocation. IMPRESSION: 1. Soft tissue swelling without acute fracture or dislocation. 2. Chronic appearing changes as above. The above report was generated using voice recognition software. It may contain grammatical, syntax or spelling errors. Electronically signed by: Brandin Dietz M.D. 03/17/2018 12:06 PM Dictated Date/Time: 03/17/2018 12:04 PM
[2018-03-17] MEDS ORDERED: OPTIRAY 320 IV PRN (12:45)
--- NOTE | 2018-03-17 13:41 | DIAGNOSTIC IMAGING REPORT ---
CT ABD/PELVIS IV CONTRAST ONLY CLINICAL HISTORY: Trauma. Hypotension. Patient on blood thinners. COMPARISON STUDY: None. TECHNIQUE: Following the IV administration of 93 mL of Optiray-320, CT scan of the abdomen and pelvis was performed from the lung bases to the proximal femurs. Images are reviewed in the axial, sagittal, and coronal planes. IV contrast was administered without complication. A dose lowering technique was utilized adhering to the principles of ALARA. CT DOSE: FINDINGS: Lower chest: There are nonspecific right basilar airspace opacities, atelectasis versus pneumonia. Liver: The contrast-enhanced liver is normal in size, contour, and attenuation. There is no intrahepatic biliary ductal dilatation. The hepatic veins and portal veins are patent. Gallbladder: Cholelithiasis. Contracted. Spleen: Normal in size and attenuation. Pancreas: Unremarkable. Adrenal glands: There is a left adrenal gland thickening likely representing adenomatous hyperplasia Kidneys: There is symmetric renal cortical enhancement. The kidneys are normal in size without hydronephrosis. Bowel: There are no transition zones indicate bowel obstruction. There is colonic diverticulosis. There is no acute diverticulitis. There are no findings to indicate acute appendicitis. There is no pathologic interloop fluid. There are no extraluminal gas collections. Peritoneum: There is no intraperitoneal free air or abdominal ascites. There is a fat-containing infraumbilical ventral hernia. Vasculature: There is a 31 mm infrarenal abdominal aortic aneurysm. Adenopathy: None. Pelvic viscera: The uterus is surgically absent. Skeletal structures: No destructive osseous lesions are seen. IMPRESSION: 1. No evidence of acute intra-abdominal or pelvic injury 2. Nonspecific right basilar airspace opacities Electronically signed by: Wan Gonzales M.D. 03/17/2018 1:40 PM Dictated Date/Time: 03/17/2018 1:35 PM
--- NOTE | 2018-03-17 13:43 | DIAGNOSTIC IMAGING REPORT ---
CHEST CT WITH CONTRAST CT DOSE: 2823.25 mGy.cm HISTORY: Acute chest trauma status post fall. Acutely altered mental status with hypotension fall ams TECHNIQUE: Multiaxial CT images of the chest were performed following the intravenous administration of contrast. A dose lowering technique was utilized adhering to the principles of ALARA. COMPARISON: CT abdomen and pelvis and chest radiograph of same day FINDINGS: No dominant thyroid nodule. Mildly prominent and enlarged mediastinal lymph nodes are present including a right paratracheal lymph node measuring 10 mm in short axis and a 1.3 x 1.0 cm subcarinal lymph node. These are indeterminate and may be reactive. The heart is mildly enlarged. Prior median sternotomy and CABG. [place] coronary arterial calcifications are present. Moderate to extensive mixed plaquing about the thoracic aorta. No thoracic aortic aneurysm. The imaged great vessels appear to be patent. The opacified pulmonary arterial tree is unremarkable. No pneumothorax or pleural effusion. Mild mucous plugging about the right lower lobe bronchi. Moderate emphysema. 3 mm nodule of the apical segment right upper lobe, image 45 series 4. Dependent subsegmental groundglass and consolidative opacities. Mild thickening of the bronchovascular bundles. No significant intralobular septal thickening. Central airways are patent. Contracted gallbladder with cholelithiasis. No acute process of the imaged upper abdomen. Moderate thickening of the left adrenal gland. Fat filled ventral subxiphoid abdominal hernia. No acute rib fracture identified. Multilevel spondylitic spurring of the spine without acute compression deformity identified. IMPRESSION: 1. Cardiomegaly with prior median sternotomy and CABG. 2. There is mild pulmonary vascular congestion with subsegmental bibasilar groundglass and consolidative opacities suggesting atelectasis or pneumonitis. 3. Emphysema with mild mucous plugging. 4. Mildly prominent and enlarged mediastinal lymph nodes are likely reactive. 5. Cholelithiasis. Electronically signed by: Brandin Dietz M.D. 03/17/2018 1:42 PM Dictated Date/Time: 03/17/2018 1:33 PM
[2018-03-17] MEDS ORDERED: LEVAQUIN 750MG / 150ML D5W IV STA (13:52)
[2018-03-17] MEDS ORDERED: ENOXAPARIN 40 MG/0.4 ML SYR SC SCH (15:00)
[2018-03-17] MEDS ORDERED: MAGNESIUM HYDROXIDE SUSP 30 ML UDC PO PRN (15:00)
[2018-03-17] MEDS ORDERED: OXYCODONE HCL IR 5 MG TAB (IMMEDIATE RELEASE) PO PRN (15:00)
[2018-03-17] MEDS ORDERED: ONDANSETRON INJ 2 MG/ML 2 ML VIAL IV PRN (15:00)
[2018-03-17] MEDS ORDERED: ACETAMINOPHEN 325 MG TAB PO PRN (15:00)
[2018-03-17] MEDS ORDERED: POLYETHYLENE (MIRALAX) 17 GM PACK PO PRN (15:00)
[2018-03-17] MEDS ORDERED: ALUMINUM/MAGNESIUM/SIMETH (MAALOX MAX) 30 ML UDC PO PRN (15:00)
[2018-03-17] MEDS ORDERED: LEVOFLOXACIN / D5W 250 MG in PREMIXED IN D5W 50 ML IV SCH (15:15)
--- NOTE | 2018-03-17 15:16 | History and Physical ---
History & Physical Date of Service Mar 17, 2018. History & Physical admit #[id number]
--- NOTE | 2018-03-17 16:51 | HISTORY & PHYSICAL EXAMINATION ---
DATE OF ADMISSION: 03/17/2018 ADMISSION HISTORY AND PHYSICAL CHIEF COMPLAINT: Fall. HISTORY OF PRESENT ILLNESS: History is entirely obtained from discussion with the ER physician, from the patient's daughter and from review of records as the patient herself is currently nonverbally unresponsive. She apparently was in her usual state of health, really only on very detailed directed questioning does the daughter remember that she did say that she kind of felt like maybe she was having a little bit of a urinary tract infection yesterday and today, although she did not even express what her symptoms were, but asked her to get some cranberry and call Dr. Dawson in that respect. However, she otherwise is in her baseline state of health. No fevers, chills, or sweats. No cough, no new shortness of breath, nothing at all that seemed off. The patient went upstairs to her room to take care of a few things. The daughter heard a fairly loud bumps, but did not think much of it as the patient herself is always or almost always in a mechanized wheelchair and does occasionally run into things; however, about 2 minutes after the bump, she heard her mother calling for her and she went upstairs to find her essentially prone on her knees and appears to have been after having fallen into a table on which I believe she keeps plants, but was unable to get up. The daughter notes that she does not at all believe that her mother had any loss of consciousness nor does this seem plausible given that there was a bump and then the patient herself was screaming for the daughter and the patient was in a position that would imply ongoing muscle tone given that she was on her knees, but leaning forward on her chest. Mostly, she was unable to get up due to weakness. The daughter notes this is actually a fairly routine thing at home. She even somewhat joking said that EMS has been great about it and it is only a $50 lift charge whenever the patient falls out of her wheelchair, falls out of a chair and is unable to get up given that the daughter is unable to lift herself, but this time, the patient seemed to be in a significant degree of pain, was unable to get up and so the daughter called EMS on the way. Reportedly, the ER says that the patient was given a dose of fentanyl for pain and apparently then not too long thereafter she has been very sedated with pain medications. REVIEW OF SYSTEMS: Unobtainable from the patient, but seems to be otherwise negative except for as above. PAST MEDICAL HISTORY: As best I can ascertain include COPD with a degree of chronic respiratory failure. It appears to be both hypoxic and hypercapnic, definitely hypoxic given that she is on oxygen at home. Atrial fibrillation, coronary artery disease, stage III chronic kidney disease, depression, type 2 diabetes, gout, hyperlipidemia, hypotension, hypothyroidism, obstructive sleep apnea, secondary hyperparathyroidism and vitamin D deficiency. MEDICATIONS: Her medication list appears to be anastrozole, aspirin, Breo, Coumadin, Crestor, Colace, Dulera. I believe she is on the Dulera not the Breo. Hydrocodone p.r.n. pain that the daughter says she takes extremely rarely. The prescription is actually left over from last year, Synthroid, Lyrica, mag oxide, metolazone, metoprolol, Nasonex, nitroglycerin, Protonix, potassium, sertraline, spironolactone, torsemide, Tudorza, Uloric and vitamin D. SURGICAL HISTORY: None of note, while it is not a surgery of note, she apparently has some sort of crushed bone in her foot that makes walking extremely painful and difficult. ALLERGIES: INCLUDE MELATONIN AND PENICILLINS. FAMILY HISTORY: Includes heart disease and diabetes. SOCIAL HISTORY: She is a smoker. The daughter notes that she will smoke in the bathroom with her oxygen off and she lives at home with her daughter and even though she has very limited mobility, the daughter notes that she and her mother have a very good system and she generally does quite well at home in spite of her limitations. PHYSICAL EXAMINATION: VITAL SIGNS: Temp 36.5, pulse 75, respiratory rate 18, blood pressure 94/53, 89% on 3 liters, later she is mid-to-high 90s on BiPAP. GENERAL: She is sedated, does not awaken, but does not appear in any acute distress. HEENT: Normocephalic, atraumatic. Mucous membranes are moist. CARDIOVASCULAR: Distant without rubs, murmurs, or gallops. LUNGS: Diminished with no rales, rhonchi, or wheezes. Good effort, but decreased air entry. No accessory muscle use. She is on BiPAP. ABDOMEN: Soft, nondistended. No noted tenderness. No guarding, rebound or rigidity. EXTREMITIES: Without cyanosis or clubbing. She has appears to be chronic trace bilateral lower extremity edema. SKIN: Shows no rashes, no pallor or icterus. She does have multiple telangiectasias. NEUROLOGIC: Full exam is very difficult due to her sedated state, but no focal deficits or asymmetry are noted. Obviously, full assessment is not able to be undertaken. MUSCULOSKELETAL: Once again, full assessment is not able to be undertaken due to her sedated state on the BiPAP, but she shows no gross deformities. MENTAL STATUS: She is sedated. LABS AND DIAGNOSTICS: CBC shows a white count of 10.99, hemoglobin 13.7 with an MCV of 69.1. I do not see old iron levels available. Platelet count 169. Complete metabolic panel with a sodium of 140, potassium 4.2, chloride 106, CO2 32, BUN 59, creatinine 2. This appears to be around her baseline. Calcium 8.4, glucose 128, total bili 0.3 with a direct of less than 0.1. AST 16, ALT 19, alkaline phosphatase 104. Troponin of less than 0.015. Total protein 7.5, albumin 2.9. PT of 22.9 with an INR of 2.2, a PTT of 39.4. Her venous blood gas shows a pH of 7.19, a pCO2 of 77 and a pO2 of 30. Urinalysis: Yellow, cloudy with a specific gravity of 1.019, 1+ blood, positive nitrites, moderate leukocyte esterase, greater than 30 white cells, 5-10 red cells, 5-10 epithelial cells and 2+ bacteria. She had extensive imaging done. CT chest, abdomen and pelvis do not really show any acute pathology. She does have emphysematous changes. C-spine CT shows arthritis, but no acute fractures or dislocations. Head CT does not show any bleed or skull fracture. It does show chronic small vessel disease. Foot x-ray shows degenerative change, soft tissue edema and osteopenia and x-ray of the knees and pelvis and tib-fib do not show any acute fracture or dislocation. Chest CT did show some consolidative opacity suggesting atelectasis or pneumonitis as well as a hint of mucus plugging with emphysema, cardiomegaly and sternotomy past apparent CABG. Her EKG is a flutter at 75 with a 3:1 block and no notable ischemic changes. She has nonspecific ST-T wave abnormality. ASSESSMENT AND PLAN: 1. Fall. This actually sounds to be a mechanical fall. It sounds to be unfortunately quite routine at their house, but the patient generally does well. It sounds like more than anything this fall, just falling forward into a table and being kind of lying on her chest and shoulders without being able to get up led to a significant amount of pain, but fortunately, no notable fractures or dislocations. It was not a loss of consciousness or syncope type of an event and it sounds like the main goal were really just be pain control and then working to get the patient back home. In discussion with the daughter because the patient's baseline functional status is so limited, but they generally tend to get around well at home and she is not a frequent admitted patient, she is not a frequent ER visit patient. The daughter asked that we will refrain on PT and OT consults at this point in time given that: 1). She would not want any kind of placement unless truly necessary. 2). She notes that just simply as a therapeutic modality her mother has such limited rehab potential that it is not really something that the patient would benefit much from. In terms of pain control, we will use Voltaren gel, Tylenol and low-dose oxycodone and follow closely. We will refrain from higher dosing of narcotics, especially given her degree of sedation. 2. Acute pain superimposed on chronic arthritis, see above. 3. Acute hypercapnic respiratory failure superimposed on what appeared to be a chronic mixed hypoxic and hypercapnic respiratory failure related to what appears to be probably fairly severe chronic obstructive pulmonary disease. While I do not have evidence of prior PFTs, her baseline old lab is showing plausibility that she runs hypercapnic, the fact that she needs oxygen all the time, the fact that she is on a fairly escalated inhaler regimen and still smokes. I suspect she probably has at least moderate working on severe chronic obstructive pulmonary disease or more than likely severe chronic obstructive pulmonary disease. I suspect her hypercapnia is acute on chronic, likely related to administration of pain medication right now. Hopefully, things will stabilize with the BiPAP and her CO2 levels have come down. If they do not we discussed then maybe needing to utilize Narcan to reverse the sedating effects of the pain medicine, but both the daughter and myself preferred an hour of conservative care and looking for improvement on BiPAP before subjecting the patient to the pain and discomfort that administering a dose of Narcan would likely cause. Should she not improve her hypercapnia, then we will need to give Narcan and should the Narcan not improve her respiratory status, then we would need to move to ventilation; however, I doubt any of this will be the case. 4. Sedation. See above. More than likely it is a combination of the effect of the medication as well as the hypercapnia induced by the medication. If her hypercapnia improves, but she is still fairly sedated, then watchful waiting will be more warranted given that it will simply be more sedating effect of the pain meds than necessarily the hypercapnic respiratory failure. Otherwise, see above. 5. Chronic kidney disease stage III. Obviously, this limits the use of NSAIDs in her biomechanical pain; however, Voltaren gel has very little systemic absorption and the daughter and I agreed it would be reasonable to move in this direction. 6. Atrial fibrillation/flutter. Her rate is controlled. She is anticoagulated on Coumadin. We will follow her INR. 7. Deep venous thrombosis prophylaxis, anticoagulation. 8. Type 2 diabetes. She actually does not appear to be on any medications for this. Her last A1c in the fall was 7. We will check an A1c, then follow fingersticks and light supplemental insulin if needed. 9. Gout. Continue her allopurinol. 10. Hyperlipidemia, outpatient management. Continue her Crestor. 11. Hypothyroidism. Continue her Synthroid. Continue her anastrozole. 12. Probable urinary tract infection. Her urine looks abnormal and while I do not know what her symptoms were, she was clearly symptomatic. She was initiated on Levaquin in the ER. We will continue this renally dosed for 250 daily until culture becomes available. I believe we will able treat this as simple cystitis. 13. CODE STATUS: The daughter notes that while she has talked with her mother about advanced directives. Her mother has never gotten around to doing them and the daughter notes she has not wanted to force the issue at this point in time. The daughter notes she is a full code. 14. She will be admitted to telemetry under the [facility] service.
--- NOTE | 2018-03-17 16:55 | EMERGENCY ROOM VISIT NOTE ---
History Report prepared by Wilian: Milagros Enrique Under the Supervision of: Dr. Julian Horn D.O. First contact with patient: 10:05 Stated Complaint: FALL/R FOOT,KNEE,HIP & NECK PAIN/GROUND LEVEL History of Present Illness The patient is a 72 year old female who presents to the Emergency Room with complaints of an episode of a fall occurring prior to arrival. Per daughter, the patient went to wash her hands, fell, and hit her body on the windowsill. The daughter states that the patient was awake when she found her. The patient states that she remembers being in a wheelchair, and then on the floor, but does not remember falling. The patient states that she is mostly always in a wheelchair. The patient complains of face pain, neck pain, right knee pain, right lower leg pain, right foot pain, right shoulder pain, and chronic right hip pain that has increased in severity since her fall. The patient denies chest pain, abdominal pain, and head pain. Per EMS, the patient wears 3 liters of oxygen at home. Per EMS, the patient is on Coumadin. Source of History: patient, family Onset: prior to arrival Position: other (Right side of body) Quality: other (fall) Timing: other (episode) Associated Symptoms: + neck pain, No chest pain, No abdominal pain Note: The patient complains of face pain, right knee pain, right lower leg pain, right foot pain, right shoulder pain and right hip pain. The patient denies head pain. Review of Systems See HPI for pertinent positives & negatives. A total of 10 systems reviewed and were otherwise negative. Past Medical & Surgical Medical Problems: (1) Acute kidney injury (2) CHF (congestive heart failure) (3) Chronic kidney disease (4) Deep vein blood clot of right lower extremity (5) Diabetes (6) Diastolic CHF (7) Fall (8) Respiratory failure, acute (9) Volume overload Surgical Problems: (1) Previous back surgery Family History Patient reports no known family medical history. Social History Smoking Status: Current Every Day Smoker Marital Status: Housing Status: lives with family Occupation Status: retired Current/Historical Medications Scheduled Aclidinium Hoffman (Tudorza Pressair), INH UD Anastrozole (Arimidex), 1 MG PO DAILY Aspirin (Aspirin Ec), 81 MG PO QAM Calcium Carbonate-Vitamin D W/ (Caltrate 600 Plus), 1 TAB PO DAILY Docusate Sodium (Docusate Sodium), 100 MG PO DAILY Ergocalciferol (Vitamin D 80236 Unit), 50,000 UNIT PO WK Febuxostat (Uloric), 40 MG PO DAILY Fluticasone Furoate-Vilanterol (Breo Ellipta), 1 PUFF INH DAILY Levothyroxine Sodium (Synthroid), 112 MCG PO DAILY Magnesium Oxide (Mag-Ox), 400 MG PO DAILY Metoprolol Tartrate (Lopressor), 25 MG PO TID Mometasone Furoate-Formoterol (Dulera 100/5 Mcg), 2 AER INH BID Pantoprazole (Protonix), 40 MG PO DAILY Potassium Chloride (Klor-Con M20), 20 MEQ PO BID Pregabalin (Lyrica), 150 MG PO TID Rosuvastatin Calcium (Rosuvastatin Calcium), 10 MG PO DAILY Sertraline (Zoloft), 150 MG PO DAILY Spironolactone (Aldactone), 25 MG PO DAILY Torsemide (Demadex), 10 MG PO BID Warfarin Sod (Jantoven), 8 MG PO DAILY Allergies Coded Allergies: Melatonin (Verified Allergy, Severe, RASH, 03/17/18) Penicillins (Verified Allergy, Unknown, UNLNOWN, 03/17/18) Physical Exam Vital Signs Date Time Temp Pulse Resp B/P (MAP) Pulse Ox O2 Delivery O2 Flow Rate FiO2 03/17/18 16:21 36.5 82 25 83/51 99 03/17/18 15:48 82 25 99 03/17/18 15:43 82 29 99 03/17/18 15:19 83/51 03/17/18 15:18 81/47 03/17/18 15:13 67 24 98 03/17/18 14:54 90/47 03/17/18 14:54 74 03/17/18 14:53 74 16 90/47 97 BiPAP 03/17/18 14:43 70 17 97 03/17/18 14:32 86/46 03/17/18 14:13 66 17 03/17/18 14:08 67 17 03/17/18 14:05 78 91 50 03/17/18 13:46 82/41 03/17/18 13:45 80/34 7/30/18 13:08 74 15 94 03/17/18 13:03 73 12 94 03/17/18 13:02 83/33 03/17/18 12:33 74 18 92 03/17/18 12:32 81/38 03/17/18 12:18 90/62 03/17/18 12:17 75 20 90/62 98 Room Air 3.0 03/17/18 11:03 77 15 91 03/17/18 11:00 105/48 03/17/18 10:59 80 16 105/48 92 Nasal Cannula 3.0 03/17/18 10:33 74 23 89 03/17/18 10:32 74 03/17/18 10:32 66/38 03/17/18 10:14 92/51 03/17/18 10:10 36.5 75 18 94/53 89 Nasal Cannula 3.0 Physical Exam GENERAL: sitting up in bed, disheveled, chronically ill appearing, on 3L nasal canula, falls asleep quickly HEAD: normal cephalic, atraumatic EYE EXAM: normal conjunctiva, PERRL and EOM's grossly intact OROPHARYNX: no exudate, no erythema, lips, buccal mucosa, and tongue normal and mucous membranes are moist EARS: TMs clear b/l NECK: supple, no nuchal rigidity, no adenopathy, midline cervical pain. CHEST: stable to compression anteriorly and posteriorly LUNGS: Diminished breath sounds at both bases. Normal chest wall mechanics HEART: no murmurs, S1 normal and S2 normal ABDOMEN: abdomen soft, non-tender, normo-active bowel sounds, no masses, no rebound or guarding. PELVIS: stable to compression anteriorly and posteriorly. Mild right hip pain to compression. BACK: Back is symmetrical on inspection and there is no deformity, no midline tenderness, no CVA tenderness. UPPER EXTREMITIES: full active and passive range of motion of all joints without tenderness to palpation LOWER EXTREMITIES: full active and passive range of motion of all joints without tenderness to palpation with exception of bilateral knee pain and right ankle pain to palpation. NEURO EXAM: Normal sensorium, cranial nerves II-XII grossly intact, normal speech, no gross weakness of arms, no gross weakness of legs. GCS: 15. SKIN: 5 cm x 4 cm scab over the lower abdomen, multiple abrasions to bilateral feet. Medical Decision & Procedures ER Provider Diagnostic Interpretation: Radiology results as stated below per my review and the radiologist's interpretation: R TIBIA/FIBULA 2 VIEWS ROUTINE HISTORY: 72 years-old Female r tibi pain acute pain of the right lower leg COMPARISON: Right knee radiographs of same day TECHNIQUE: 2 views of the right tibia and fibula FINDINGS: Moderate soft tissue swelling about the lower leg. Degenerative changes of the right knee with chondrocalcinosis. At least moderate tibiotalar osteoarthritis. ORIF changes about the ankle with K wire and long cannulated screw fixating a remote medial malleolar fracture. Sclerosis with mild articular flattening of the talus. Cannulated screw fixates remote talar fracture. Surgical clips project over the medial tissues of the distal lower leg. No acute fracture or dislocation. IMPRESSION: 1. Soft tissue swelling without acute fracture or dislocation. 2. Chronic appearing changes as above. The above report was generated using voice recognition software. It may contain grammatical, syntax or spelling errors. PELVIS 1 OR 2 VIEW ROUTINE, R FEMUR 2 VIEWS ROUTINE HISTORY: 72 years-old Female bl hip pain acute pelvic and right femoral pain COMPARISON: None available TECHNIQUE: AP view of the pelvis with 2 views of the right femur FINDINGS: PELVIS: Degenerative changes of the pubic symphysis, SI joints and lower lumbar spine. Mild osteoarthritis of the bilateral femoral acetabular joints. Bones appear mildly demineralized. There is no acute fracture or dislocation. Vascular calcifications are noted. Vascular clips project over the bilateral inguinal distributions. RIGHT FEMUR: Mild osteoarthritis of the right femoral acetabular joint. No acute fracture or dislocation. No avascular necrosis. Degenerative changes of the knee with chondrocalcinosis. IMPRESSION: No acute fracture or dislocation. HEAD WITHOUT CONTRAST (CT) CT DOSE: HISTORY: Mental status change. Trauma. AMS TECHNIQUE: Multiaxial CT images of the head were performed without the use of intravenous contrast. A dose lowering technique was utilized adhering to the principles of ALARA. Comparison: 07/04/2017 Findings: The paranasal sinuses and mastoid air cells are clear. The calvarium and skull base are intact. The ventricles and sulci are within normal limits. There is no mass, hematoma, midline shift, or acute infarct. Chronic small vessel change of aging Impression: No acute intracranial abnormality. Chronic small vessel change of aging. R FOOT MIN 3 VIEWS ROUTINE CLINICAL HISTORY: r foot pain pain COMPARISON: 01/20/2016 DISCUSSION: Mild generalized soft tissue edema. Generalized degenerative and postoperative change. There are findings of a partial ankle fusion. This has been described previously. No well-defined acute bony abnormality. Generalized soft tissue edema primarily over the dorsal aspect of the metatarsal region. IMPRESSION: Soft tissue edema. Degenerative change. Osteopenia. The above report was generated using voice recognition software. It may contain grammatical, syntax or spelling errors. Electronically signed by: Tony Butts M.D. PELVIS 1 OR 2 VIEW ROUTINE, R FEMUR 2 VIEWS ROUTINE HISTORY: 72 years-old Female bl hip pain acute pelvic and right femoral pain COMPARISON: None available TECHNIQUE: AP view of the pelvis with 2 views of the right femur FINDINGS: PELVIS: Degenerative changes of the pubic symphysis, SI joints and lower lumbar spine. Mild osteoarthritis of the bilateral femoral acetabular joints. Bones appear mildly demineralized. There is no acute fracture or dislocation. Vascular calcifications are noted. Vascular clips project over the bilateral inguinal distributions. RIGHT FEMUR: Mild osteoarthritis of the right femoral acetabular joint. No acute fracture or dislocation. No avascular necrosis. Degenerative changes of the knee with chondrocalcinosis. IMPRESSION: No acute fracture or dislocation CHEST ONE VIEW PORTABLE CLINICAL HISTORY: Acute change in mental status COMPARISON STUDY: 07/07/2017 FINDINGS: The heart is enlarged. There is mild interstitial pulmonary edema. There is no focal pulmonary consolidation. There is a probable small left pleural effusion.[ IMPRESSION: Cardiomegaly and mild interstitial pulmonary edema. Electronically signed by: Wan Gonzales M.D. 03/17/2018 12:03 PM Dictated Date/Time: 03/17/2018 12:02 PM CERVICAL SPINE W/O CT DOSE: 1201.41 mGy.cm CLINICAL HISTORY: 72 years-old Female with neck pain . Acute neck pain COMPARISON: CT head of same day. TECHNIQUE: Multiple axial CT images of the cervical spine were obtained without contrast. A dose lowering technique was utilized adhering to the principles of ALARA. FINDINGS: Median sternotomy wires are partially imaged. Emphysematous changes about the imaged lung apices. Atherosclerosis of the aorta and carotid vasculature. Medial course of the bilateral common carotid arteries. Soft tissues are within normal limits. Mastoid air cells and middle ear cavities appear clear. 2 mm anterolisthesis C3 on C4 and C4 on C5, likely on a degenerative basis. Multilevel severe facet arthropathy with mild to moderate multilevel spondylitic spurring. Severe intervertebral disc space narrowing with circumferential disc osteophyte complex formation at C5-C6. Mild convex left curvature of the cervical spine. No acute fracture or subluxation is identified. Evaluation of the central canal and neuroforamina is better assessed by MRI. Multilevel foraminal narrowing. For example, there is severe right-sided foraminal stenosis at C5-C6. No prevertebral soft tissue swelling. IMPRESSION: No acute cervical spine fracture or subluxation. The above report was generated using voice recognition software. It may contain grammatical, syntax or spelling errors. Electronically signed by: Brandin Dietz M.D. 03/17/2018 11:03 AM Dictated Date/Time: 03/17/2018 10:58 AM L KNEE 2 VIEWS ROUTINE CLINICAL HISTORY: Left knee pain COMPARISON: None. DISCUSSION: There is chondrocalcinosis. There are no acute fractures. There is mild medial joint compartment narrowing. There are surgical clips in the soft tissues likely vascular. IMPRESSION: 1. Chondrocalcinosis and mild osteoarthritic change 2. No acute fractures Electronically signed by: Wan Gonzales M.D. 03/17/2018 12:04 PM Dictated Date/Time: 03/17/2018 12:03 PM R KNEE 1 OR 2 VIEWS ROUTINE CLINICAL HISTORY: AMS, B/L KNEE PAIN pain COMPARISON: None. DISCUSSION: Mild degenerative change all major joint compartments. Chondrocalcinosis. No significant joint effusion. No evidence for fracture or dislocation. There is no evidence for soft tissue swelling. IMPRESSION: 1. Moderate degenerative change all major joint compartments. 2. Chondrocalcinosis. The above report was generated using voice recognition software. It may contain grammatical, syntax or spelling errors. Electronically signed by: Tony Butts M.D. 03/17/2018 12:05 PM Dictated Date/Time: 03/17/2018 12:[address] WITH CONTRAST CT DOSE: 2823.25 mGy.cm HISTORY: Acute chest trauma status post fall. Acutely altered mental status with hypotension fall ams TECHNIQUE: Multiaxial CT images of the chest were performed following the intravenous administration of contrast. A dose lowering technique was utilized adhering to the principles of ALARA. COMPARISON: CT abdomen and pelvis and chest radiograph of same day FINDINGS: No dominant thyroid nodule. Mildly prominent and enlarged mediastinal lymph nodes are present including a right paratracheal lymph node measuring 10 mm in short axis and a 1.3 x 1.0 cm subcarinal lymph node. These are indeterminate and may be reactive. The heart is mildly enlarged. Prior median sternotomy and CABG. [place] coronary arterial calcifications are present. Moderate to extensive mixed plaquing about the thoracic aorta. No thoracic aortic aneurysm. The imaged great vessels appear to be patent. The opacified pulmonary arterial tree is unremarkable. No pneumothorax or pleural effusion. Mild mucous plugging about the right lower lobe bronchi. Moderate emphysema. 3 mm nodule of the apical segment right upper lobe, image 45 series 4. Dependent subsegmental groundglass and consolidative opacities. Mild thickening of the bronchovascular bundles. No significant intralobular septal thickening. Central airways are patent. Contracted gallbladder with cholelithiasis. No acute process of the imaged upper abdomen. Moderate thickening of the left adrenal gland. Fat filled ventral subxiphoid abdominal hernia. No acute rib fracture identified. Multilevel spondylitic spurring of the spine without acute compression deformity identified. IMPRESSION: 1. Cardiomegaly with prior median sternotomy and CABG. 2. There is mild pulmonary vascular congestion with subsegmental bibasilar groundglass and consolidative opacities suggesting atelectasis or pneumonitis. 3. Emphysema with mild mucous plugging. 4. Mildly prominent and enlarged mediastinal lymph nodes are likely reactive. 5. Cholelithiasis. Electronically signed by: Brandin Dietz M.D. 03/17/2018 1:42 PM Dictated Date/Time: 03/17/2018 1:[address] ABD/PELVIS IV CONTRAST ONLY CLINICAL HISTORY: Trauma. Hypotension. Patient on blood thinners. COMPARISON STUDY: None. TECHNIQUE: Following the IV administration of 93 mL of Optiray-320, CT scan of the abdomen and pelvis was performed from the lung bases to the proximal femurs. Images are reviewed in the axial, sagittal, and coronal planes. IV contrast was administered without complication. A dose lowering technique was utilized adhering to the principles of ALARA. CT DOSE: FINDINGS: Lower chest: There are nonspecific right basilar airspace opacities, atelectasis versus pneumonia. Liver: The contrast-enhanced liver is normal in size, contour, and attenuation. There is no intrahepatic biliary ductal dilatation. The hepatic veins and portal veins are patent. Gallbladder: Cholelithiasis. Contracted. Spleen: Normal in size and attenuation. Pancreas: Unremarkable. Adrenal glands: There is a left adrenal gland thickening likely representing adenomatous hyperplasia Kidneys: There is symmetric renal cortical enhancement. The kidneys are normal in size without hydronephrosis. Bowel: There are no transition zones indicate bowel obstruction. There is colonic diverticulosis. There is no acute diverticulitis. There are no findings to indicate acute appendicitis. There is no pathologic interloop fluid. There are no extraluminal gas collections. Peritoneum: There is no intraperitoneal free air or abdominal ascites. There is a fat-containing infraumbilical ventral hernia. Vasculature: There is a 31 mm infrarenal abdominal aortic aneurysm. Adenopathy: None. Pelvic viscera: The uterus is surgically absent. Skeletal structures: No destructive osseous lesions are seen. IMPRESSION: 1. No evidence of acute intra-abdominal or pelvic injury 2. Nonspecific right basilar airspace opacities Electronically signed by: Wan Gonzales M.D. 03/17/2018 1:40 PM Dictated Date/Time: 03/17/2018 1:35 PM Laboratory Results 03/17/18 10:15 Red Blood Count 6.41, Mean Corpuscular Volume 69.1, Mean Corpuscular Hemoglobin 21.4, Mean Corpuscular Hemoglobin Concent 30.9, Neutrophils (%) (Auto) 78.8, Lymphocytes (%) (Auto) 13.3, Monocytes (%) (Auto) 6.9, Eosinophils (%) (Auto) 0.4, Basophils (%) (Auto) 0.3, Neutrophils # (Auto) 8.67, Lymphocytes # (Auto) 1.46, Monocytes # (Auto) 0.76, Eosinophils # (Auto) 0.04, Basophils # (Auto) 0.03 03/17/18 10:15 Test 03/17/18 10:15 03/17/18 12:45 03/17/18 14:00 03/17/18 15:30 White Blood Count 10.99 K/uL (4.8-10.8) Red Blood Count 6.41 M/uL (4.2-5.4) Hemoglobin 13.7 g/dL (12.0-16.0) Hematocrit 44.3 % (37-47) Mean Corpuscular Volume 69.1 fL (80-100) Mean Corpuscular Hemoglobin 21.4 pg (25-34) Mean Corpuscular Hemoglobin Concent 30.9 g/dl (32-36) Platelet Count 169 K/uL (130-400) Neutrophils (%) (Auto) 78.8 % Lymphocytes (%) (Auto) 13.3 % Monocytes (%) (Auto) 6.9 % Eosinophils (%) (Auto) 0.4 % Basophils (%) (Auto) 0.3 % Neutrophils # (Auto) 8.67 K/uL (1.4-6.5) Lymphocytes # (Auto) 1.46 K/uL (1.2-3.4) Monocytes # (Auto) 0.76 K/uL (0.11-0.59) Eosinophils # (Auto) 0.04 K/uL (0-0.5) Basophils # (Auto) 0.03 K/uL (0-0.2) RDW Standard Deviation 55.3 fL (36.4-46.3) RDW Coefficient of Variation 22.4 % (11.5-14.5) Immature Granulocyte % (Auto) 0.3 % Immature Granulocyte # (Auto) 0.03 K/uL (0.00-0.02) Platelet Estimate DECREASED Anisocytosis PRESENT Microcytosis PRESENT Spherocytes 1+ Prothrombin Time 22.9 SECONDS (9.0-12.0) Prothromb Time International Ratio 2.2 (0.9-1.1) Activated Partial Thromboplast Time 39.4 SECONDS (21.0-31.0) Partial Thromboplastin Ratio 1.5 Anion Gap 6.0 mmol/L (3-11) Est Creatinine Clear Calc Drug Dose 35.0 ml/min Estimated GFR () 28.0 Estimated GFR (Non- 24.2 BUN/Creatinine Ratio 29.7 (10-20) Calcium Level 8.4 mg/dl (8.5-10.1) Total Bilirubin 0.3 mg/dl (0.2-1) Direct Bilirubin < 0.1 mg/dl (0-0.2) Aspartate Amino Transf (AST/SGOT) 16 U/L (15-37) Alanine Aminotransferase (ALT/SGPT) 19 U/L (12-78) Alkaline Phosphatase 104 U/L (45-117) Troponin I < 0.015 ng/ml (0-0.045) Total Protein 7.5 gm/dl (6.4-8.2) Albumin 2.9 gm/dl (3.4-5.0) Venous Blood pH 7.19 (7.36-7.41) Venous Blood Partial Pressure CO2 77 mmHg (38.0-50.0) Venous Blood Partial Pressure O2 30 mmHg Venous Blood HCO3 29 mmol/L Venous Blood Oxygen Saturation < 60.0 % Venous Blood Base Excess -1.2 mEq/L Urine Color YELLOW Urine Appearance CLOUDY (CLEAR) Urine pH 5.0 (4.5-7.5) Urine Specific [place] 1.019 (1.000-1.030) Urine Protein TRACE (NEG) Urine Glucose (UA) NEG (NEG) Urine Ketones NEG (NEG) Urine Occult Blood 1+ (NEG) Urine Nitrite POS (NEG) Urine Bilirubin NEG (NEG) Urine Urobilinogen NEG (NEG) Urine Leukocyte Esterase MODERATE (NEG) Urine WBC (Auto) >30 /hpf (0-5) Urine RBC (Auto) 5-10 /hpf (0-4) Urine Hyaline Casts (Auto) 1-5 /lpf (0-5) Urine Epithelial Cells (Auto) 5-10 /lpf (0-5) Urine Bacteria (Auto) 2+ (NEG) Laboratory results per my review. Medications Administered Medications (Trade) Dose Ordered Sig/Isidoro Route Start Time Stop Time Status Last Admin Dose Admin Sodium Chloride 1,000 ml @ 999 mls/hr Q1H1M STAT IV 03/17/18 10:18 03/17/18 11:18 DC 03/17/18 10:18 999 MLS/HR Sodium Chloride 1,000 ml @ 999 mls/hr Q1H1M STAT IV 03/17/18 13:35 03/17/18 14:35 DC 03/17/18 13:35 999 MLS/HR Levofloxacin (Levaquin / D5W) 750 mg NOW STAT IV 03/17/18 13:52 03/17/18 13:53 DC 03/17/18 14:26 750 MG ECG Per My Interpretation Indication: back/shoulder pain Rate (beats per minute): 75 Rhythm: atrial flutter Findings: other (Normal axis, poor baseline) ED Course ED COURSE: Vital signs were reviewed and showed hypotensive and hypoxic. The patients medical record was reviewed The above diagnostic studies were performed and reviewed. ED treatments and interventions as stated above. 1006: The patient was evaluated in room B9. A complete history and physical examination was performed. 1018: Ordered NSS 1000 ml @ 999 mls/hr IV. 1129: I went to reevaluate the patient. She was hard to arouse and I had to use a sternum rub to wake her up. 1213: Upon reevaluation, the patient is hard to arouse. I discussed my findings with the patient and she understands and agrees with the treatment plan. Based on the patients age, coexisting illnesses, exam and lab findings the decision to treat as an inpatient was made. The patient remained stable while under my care. The patient will be evaluated for further management. 1335: Ordered NSS 1000 ml @ 999 mls/hr IV. 1352: Ordered Levofloxacin 750 mg IV. 1409: I reviewed the patient's case with Dr. Garcia [facility] Hospitalist. He will evaluate the patient for further management. Medical Decision Differential diagnoses include major intracranial, cervical, spinal, thoracic, abdominal, pelvic and neurologic injury. Fracture, contusion, sprain, strain, laceration, abrasions included as well. Patient is a 72-year-old female who presents the ER for syncopal episode from wheelchair. She notes that she does take blood thinners. She was extremely difficult to arouse but just prior to arrival received 100 mcg of fentanyl. CBC was unremarkable. BMP shows a creatinine of 2 which is consistent with baseline. Bilirubin, LFTs and troponin was negative. INR was therapeutic at 2.2. UA eventually resulted and showed a UTI. Throughout her stay she was still very difficult to arouse. VBG was obtained and showed a pH of 7.19. CO2 was 77. She was placed on BiPAP. She was given IV antibiotics including Levaquin to cover possible pneumonia although she notes no new respiratory symptoms. Patient family were updated at bedside. She was monitored closely. She is admitted to internal medicine with respiratory failure, hypoxia, acidosis , and UTI. Medication Reconcilliation Current Medication List: was personally reviewed by me Blood Pressure Screening Patient's blood pressure: Low blood pressure Will be further monitored by the hospitalist. Consults Time Called: 1401 Consulting Physician: Dr. Garcia [facility] Hospitalist Returned Call: [phone] I reviewed the patient's case with Dr. Garcia [facility] Hospitalist. He will evaluate the patient for further management. Impression Primary Impression: Respiratory failure Additional Impressions: Altered mental status Syncope Chronic kidney disease (CKD) Critical Care I have personally spent 35 minutes of critical care time in the direct management of this patient. This includes bedside care, interpretation of diagnostic studies, and testing, discussion with consultants, patient, and family members, and other required patient management activities. This 35 minutes is in excess of all separately billable procedures. Scribe Attestation The scribe's documentation has been prepared under my direction and personally reviewed by me in its entirety. I confirm that the note above accurately reflects all work, treatment, procedures, and medical decision making performed by me. Departure Information Dispostion Being Evaluated By Hospitalist Esequiel Salazar D.O. (PCP) Problem Qualifiers Primary Impression: Respiratory failure Chronicity: acute Respiratory failure complication: hypoxia and hypercapnia Qualified Codes: J96.01 - Acute respiratory failure with hypoxia; J96.02 - Acute respiratory failure with hypercapnia Additional Impressions: Altered mental status Altered mental status type: unspecified Qualified Codes: R41.82 - Altered mental status, unspecified Syncope Syncope type: unspecified Qualified Codes: R55 - Syncope and collapse Chronic kidney disease (CKD) Chronic kidney disease stage: unspecified stage Qualified Codes: N18.9 - Chronic kidney disease, unspecified
[2018-03-17] MEDS: DICLOFENAC SOD 1% GEL 100 GM TUBE EXT SCH ×2 (17:00→21:00)
[2018-03-17] MEDS ORDERED: CARBOHYDRATES FOR HYPOGLYCEMIA PO PRN (17:30)
[2018-03-17] MEDS ORDERED: GLUCOSE 40% GEL 15 GM TUBE PO PRN (17:30)
[2018-03-17] MEDS ORDERED: DEXTROSE 50% 50 ML SYR IV PRN (17:30)
[2018-03-17] MEDS ORDERED: GLUCAGON FOR INJ 1 MG VIAL IM PRN (17:30)
[2018-03-17] MEDS ORDERED: GLUCOSE 10 TABS/TUBE PO PRN (17:30)
[2018-03-17] MEDS: INSULIN ASPART 100 UNITS/ML 3 ML PEN SC SCH ×2 (17:45→21:00)
[2018-03-17] MEDS ORDERED: WARFARIN SOD 4 MG TAB PO SCH (18:00)
[2018-03-17] MEDS ORDERED: CIPROFLOXACIN CONSULT ACTIVE PRN (18:30)
[2018-03-17] MEDS ORDERED: POTASSIUM CHLORIDE 20 MEQ TABCR PO SCH (21:00)
[2018-03-17] MEDS: BUDESONIDE/FORMOTEROL FUMARATE 160/4.5 60 PUFFS/INHALER INH SCH (21:00)
[2018-03-17] MEDS: METOPROLOL TARTRATE 25 MG TAB PO SCH (21:00)
[2018-03-17] MEDS: PREGABALIN 150 MG CAP PO SCH (21:00)
[2018-03-17] MEDS: TORSEMIDE 20 MG TAB PO SCH (21:00)
[2018-03-17] MEDS ORDERED: D5W AND 1/2NSS + 20MEQ KCL 1,000 ML IV SCH (21:30)
[2018-03-17] MEDS ORDERED: FENTANYL CITRATE INJ 50 MCG/1 ML 2 ML VIAL IV PRN (22:15)
[2018-03-17] MEDS ORDERED: PROPRANOLOL HCL 1 MG/ML 1 ML VIAL IV PRN (22:15)
--- NOTE | 2018-03-17 22:15 | Progress Note ---
Progress Note Date of Service Mar 17, 2018. Progress Note hypercapnea did not improve mentation - a little more alert, but still not baseline for intubation due to hypercapnea d/w dr wagoner, dr iglesias, dtr move to ICU
[2018-03-17] MEDS ORDERED: PROPOFOL IV EMULSION 10 MG/ML 100 ML VIAL IV SCH (22:31)
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
[2018-03-18] VITALS (41 sets, daily range): BP systolic 55–164; BP diastolic 24–113; PULSE 64–120; TEMP 36.5–37.1; O2SAT 90–100
[2018-03-18] MEDS ORDERED: RAPID SEQUENCE INDUCTION BAG ONE (00:02)
[2018-03-18] MEDS ORDERED: PROPOFOL IV EMULSION 10 MG/ML 100 ML VIAL IV STA (00:43)
[2018-03-18] MEDS ORDERED: FENTANYL 1250MCG/250ML NSS 250 ML IV SCH (00:45)
--- NOTE | 2018-03-18 00:57 | Progress Note ---
Progress Note Date of Service Mar 18, 2018. Progress Note Consulted by Dr. Steven for urgent intubation on this 72yo patient with hypercapnic respiratory failure who is currently on bipap. Talked to patient and her daughter regarding intubation. Airway was evaluated. Labs, allergy and NPO status reviewed. Pt was preoxygenated with 100% FiO2. O2 sats ranged from 96 -99%. RSI with 20mg IV etomidate and 160mg IV succinylcholine. DL x 1 using glidescope #4 with good view of cord. #7.5 ETT was inserted. Good color change on CO2 detector. +=BBS. ETT secured by RT team at 22cm. Atraumatic intubation. All lips and dentition intact. Care turned over to ICU team.
[2018-03-18] MEDS ORDERED: SODIUM CHLORIDE 0.9% 1000ML 1,000 ML IV SCH (03:30)
[2018-03-18] MEDS ORDERED: ALBUT/IPRATROP 3MG/0.5MG NEB 3 ML VIAL INH SCH (04:00)
[2018-03-18 04:47] LABS: MEAN CORPUSCULAR HGB CONC 30.1 g/dl (32-36)
[2018-03-18 04:58] LABS: INR 2.7 (0.9-1.1)
[2018-03-18 05:07] LABS: CALCIUM 7.5 mg/dl (8.5-10.1); CREATININE 1.72 mg/dl (0.60-1.20); HEMATOCRIT 38.9 % (37-47); HEMOGLOBIN 11.7 g/dL (12.0-16.0); MEAN CELL VOLUME 69.8 fL (80-100); PLATELET COUNT 147 K/uL (130-400); POTASSIUM 4.5 mmol/L (3.5-5.1); RED CELL DISTRIBUTION WIDTH CV 22.1 % (11.5-14.5); RED CELL DISTRIBUTION WIDTH SD 56.5 fL (36.4-46.3); WHITE BLOOD COUNT 8.93 K/uL (4.8-10.8)
[2018-03-18 05:08] LABS: BASO % 0.2 %; BASO ABS # 0.02 K/uL (0-0.2); EOS % 0.3 %; EOS ABS # 0.03 K/uL (0-0.5); IG# 0.02 K/uL (0.00-0.02); LYMPH % 12.4 %; LYMPH ABS # 1.11 K/uL (1.2-3.4); MONO % 9.5 %; MONO ABS # 0.85 K/uL (0.11-0.59); NEUT % 77.4 %
[2018-03-18] MEDS: INSULIN ASPART 100 UNITS/ML 3 ML PEN SC SCH ×5 (05:57→20:30)
[2018-03-18] MEDS: LEVOTHYROXINE 112 MCG TAB PO SCH (05:59)
[2018-03-18 06:25] LABS: HEMOGLOBIN A1C 7.1 % (4.5-5.6)
--- NOTE | 2018-03-18 07:21 | DIAGNOSTIC IMAGING REPORT ---
SINGLE VIEW CHEST CLINICAL HISTORY: Respiratory failure. Intubation. FINDINGS: An AP, portable, upright chest radiograph is compared to chest x-ray and chest CT dated 03/17/2018. The examination is degraded by portable technique and patient rotation. An endotracheal tube has been placed. The tip terminates approximately 4.5 cm above the lucius. An enteric tube has been placed. The tip projects below the diaphragm and is not visualized. The patient is status post midline sternotomy. The heart is enlarged and there is atherosclerotic calcification of the thoracic aorta. There is mild pulmonary vascular congestion. Emphysema and chronic interstitial thickening are similar to previous. Dependent airspace opacities are observed. No large pleural effusion or pneumothorax is seen. The skeletal structures are osteopenic. The bony thorax is grossly intact. IMPRESSION: 1. Endotracheal and enteric tubes have been placed as detailed above. 2. Cardiomegaly with mild pulmonary vascular congestion. 3. Emphysema. 4. Dependent airspace opacities persist and likely represent atelectasis. Clinical correlation will be required. Electronically signed by: Tayo Lancaster M.D. 03/18/2018 7:19 AM Dictated Date/Time: 03/18/2018 7:17 AM
[2018-03-18] MEDS ORDERED: MODAFINIL 100 MG TAB PO ONE (07:45)
[2018-03-18] MEDS: ALBUTEROL HFA 8 GM INHALER INH SCH ×2 (07:46→11:35)
--- NOTE | 2018-03-18 08:42 | Clinical Documentation Query ---
CLINICAL DOCUMENTATION QUERY Dr. LAINEZ, In your clinical opinion does this patient have: (x ) Morbid obesity with BMI 54.1 ( ) Not Agree ( ) Other explanation of clinical findings (No explanation is considered a No Response) ( ) Unable to determine ( ) Need to Discuss (Phone CDS or qliq) (No discussion is considered a No Response) BMI: A significantly high (>40) or significantly low (<19) BMI will impact the severity of illness and risk of mortality of your patient. However, the physician must document a correlating diagnosis in the medical record. Please clarify and document your clinical opinion in the progress notes and discharge summary. Terms such as "probable", "suspected", "likely", "questionable", "possible", or "still to be ruled out" are acceptable. IF IN AGREEMENT, YOU MUST DOCUMENT ABOVE DIAGNOSTIC STATEMENT IN DAILY PROGRESS NOTES AND DISCHARGE SUMMARY. This document is not part of the patient's record. Thank You, Machelle Solorio RN [phone]
[2018-03-18] MEDS ORDERED: SULFAMETHOXAZOLE/TRIMETHOPRIM DS 800/160MG TAB PO SCH (09:00)
--- NOTE | 2018-03-18 09:13 | Critical Care Consultation ---
Critical Care Consultation Date of Consultation: Mar 18, 2018. Attending Physician: Esequiel Mariano MD, PhD Reason for Consultation: Hypercarbic respiratory failure History of Present Illness Patient is a 72-year-old female who was admitted to the hospital secondary to a fall, she had been given narcotics for arthralgias and subsequently developed hypercarbic respiratory failure. I was consulted for acidemia secondary to acute hypercapnic respiratory failure. Patient was intubated overnight by anesthesia and admitted to the ICU Past Medical/Surgical History Diabetes Chronic kidney disease Frequent falls Family History Patient reports no known family medical history. Social History Smoking Status: Heavy Tobacco Smoker Marital Status: Housing Status: lives with family Occupation Status: retired Allergies Coded Allergies: Melatonin (Verified Allergy, Severe, RASH, 03/17/18) Penicillins (Verified Allergy, Unknown, UNLNOWN, 03/17/18) Home Medications Scheduled Aclidinium [place] (Tudorza Pressair), INH UD Anastrozole (Arimidex), 1 MG PO DAILY Aspirin (Aspirin Ec), 81 MG PO QAM Calcium Carbonate-Vitamin D W/ (Caltrate 600 Plus), 1 TAB PO DAILY Docusate Sodium (Docusate Sodium), 100 MG PO DAILY Ergocalciferol (Vitamin D 19491 Unit), 50,000 UNIT PO WK Febuxostat (Uloric), 40 MG PO DAILY Fluticasone Furoate-Vilanterol (Breo Ellipta), 1 PUFF INH DAILY Levothyroxine Sodium (Synthroid), 112 MCG PO DAILY Magnesium Oxide (Mag-Ox), 400 MG PO DAILY Metoprolol Tartrate (Lopressor), 25 MG PO TID Mometasone Furoate-Formoterol (Dulera 100/5 Mcg), 2 AER INH BID Pantoprazole (Protonix), 40 MG PO DAILY Potassium Chloride (Klor-Con M20), 20 MEQ PO BID Pregabalin (Lyrica), 150 MG PO TID Rosuvastatin Calcium (Rosuvastatin Calcium), 10 MG PO DAILY Sertraline (Zoloft), 150 MG PO DAILY Spironolactone (Aldactone), 25 MG PO DAILY Torsemide (Demadex), 10 MG PO BID Warfarin Sod (Jantoven), 8 MG PO DAILY Current Inpatient Medications Current Inpatient Medications Medications (Trade) Dose Ordered Sig/Isidoro Route Start Time Stop Time Status Last Admin Dose Admin Ioversol (Optiray 320) 100 ml UD PRN IV 03/17/18 12:45 03/21/18 12:44 Acetaminophen (Tylenol Tab) 650 mg Q4H PRN PO 03/17/18 15:00 04/16/18 14:59 Al Hydrox/Mg Hydrox/Simethicone (Maalox Max Susp) 15 ml Q4H PRN PO 03/17/18 15:00 04/16/18 14:59 Magnesium Hydroxide (Milk Of Magnesia Susp) 30 ml Q12H PRN PO 03/17/18 15:00 04/16/18 14:59 Ondansetron HCl (Zofran Inj) 4 mg Q6H PRN IV 03/17/18 15:00 04/16/18 14:59 Polyethylene (Miralax Powder Packet) 17 gm DAILY PRN PO 03/17/18 15:00 04/16/18 14:59 Diclofenac Sodium (Voltaren 1% Top Gel) 1 appln QID EXT 03/17/18 17:00 04/16/18 16:59 Oxycodone HCl (Roxicodone Immediate Rel Tab) 2.5 mg Q4H PRN PO 03/17/18 15:00 03/31/18 14:59 Anastrozole (Arimidex Tab) 1 mg DAILY PO 03/18/18 09:00 04/17/18 08:59 Aspirin (Ecotrin Tab) 81 mg QAM PO 03/18/18 09:00 04/17/18 08:59 Calcium/Vitamin D (Caltrate Plus Tab) 1 tab DAILY PO 03/18/18 09:00 04/17/18 08:59 Docusate Sodium (coLACE CAP) 100 mg DAILY PO 03/18/18 09:00 04/17/18 08:59 Ergocalciferol (Vitamin D Cap) 50,000 interunit Mo@0900 PO 03/24/18 09:00 04/23/18 08:59 Levothyroxine Sodium (Synthroid Tab) 112 mcg DAILYBB PO 03/18/18 06:00 04/17/18 06:59 03/18/18 05:59 112 MCG Magnesium Oxide (Mag-Ox Tab) 400 mg DAILY PO 03/18/18 09:00 04/17/18 08:59 Metoprolol Tartrate (Lopressor Tab) 25 mg TID PO 03/17/18 21:00 04/16/18 20:59 Pantoprazole Sodium (Protonix Tab) 40 mg DAILY PO 03/18/18 09:00 04/17/18 08:59 Potassium Chloride (Klor-Con Tab) 20 meq BID PO 03/17/18 21:00 04/16/18 20:59 Future Hold Pregabalin (Lyrica Cap) 150 mg TID PO 03/17/18 21:00 04/16/18 20:59 Rosuvastatin Calcium (Crestor Tab) 10 mg DAILY PO 03/18/18 09:00 04/17/18 08:59 Sertraline HCl (Zoloft Tab) 150 mg DAILY PO 03/18/18 09:00 04/17/18 08:59 Spironolactone (Aldactone Tab) 25 mg DAILY PO 03/18/18 09:00 04/17/18 08:59 Torsemide (Demadex Tab) 10 mg BID PO 03/17/18 21:00 04/16/18 20:59 Warfarin Sodium (Coumadin Tab) 8 mg DAILY@1600 PO 03/17/18 18:00 04/16/18 17:59 Febuxostat (Uloric) 40 mg DAILY PO 03/18/18 09:00 04/17/18 08:59 Miscellaneous Information (Order Awaiting Action) 1 ea QS N/A 03/18/18 00:00 04/17/18 00:00 Tiotropium [place] (Spiriva Handihaler Inhaler) 1 puff QAM INH 03/18/18 09:00 04/17/18 08:59 Budesonide/ Formoterol Fumarate (Symbicort 160/ 4.5 Inh) 2 puffs BID INH 03/17/18 21:00 04/16/18 20:59 Insulin Aspart (novoLOG ASPART) SLIDING SCALE G... ACHS SC 03/17/18 17:45 04/16/18 17:44 Glucose (Glucose 40% Gel) 15-30 GRAMS 15 GRAMS... UD PRN PO 03/17/18 17:30 04/16/18 17:29 Glucose (Glucose Chew Tab) 4-8 Tablets 4 Tabl... UD PRN PO 03/17/18 17:30 04/16/18 17:29 Dextrose (Dextrose 50% 50ML Syringe) 25-50ML 25ML FOR ... UD PRN IV 03/17/18 17:30 04/16/18 17:29 Glucagon (Glucagon Inj) 1 mg UD PRN IM 03/17/18 17:30 04/16/18 17:29 Carbohydrates (Carbohydrates For Hypoglycemia) 15-30 GRAMS 15 grams if BSG 54-69... UD PRN PO 03/17/18 17:30 04/16/18 17:29 Ciprofloxacin (Consult) 1 ea UD PRN N/A 03/17/18 18:30 04/16/18 18:29 Ciprofloxacin/ Dextrose 400 mg/ Prmx 200 ml @ 100 mls/hr Q12@0200,1400 IV 03/18/18 14:00 03/23/18 13:59 Potassium Chloride/Dextrose/ Sod Cl 1,000 ml @ 60 mls/hr [id number] IV 03/17/18 21:30 04/16/18 21:14 03/17/18 21:44 60 MLS/HR Fentanyl Citrate (Fentanyl Inj) 50 mcg Q2HWA PRN IV 03/17/18 22:15 03/31/18 22:14 Propofol (Diprivan Iv Emulsion 100ml Vial) 1 dose UD IV 03/17/18 22:31 03/20/18 22:30 03/18/18 01:41 1 DOSE Fentanyl Citrate 250 ml @ 0 mls/hr Q0M IV 03/18/18 00:45 04/01/18 00:44 03/18/18 02:13 5 MLS/HR Pantoprazole Sodium 40 mg/ Syringe 10 ml @ 5 mls/min Q24H IV 03/18/18 11:00 03/21/18 11:01 Ipratropium [place] (Atrovent Hfa Inhaler) 4 puffs Q4R INH 03/18/18 08:00 04/17/18 07:59 Albuterol (Ventolin Hfa Inhaler) 4 puffs Q4R INH 03/18/18 08:00 04/17/18 07:59 03/18/18 07:46 4 PUFFS Review of Systems Unable to obtain secondary to intubation Physical Exam Date Time Temp Pulse Resp B/P (MAP) Pulse Ox O2 Delivery O2 Flow Rate FiO2 03/18/18 07:16 50 03/18/18 05:47 40 03/18/18 05:46 50 03/18/18 05:39 69 28 103/65 (78) 95 03/18/18 05:16 68 24 101/58 (72) 99 03/18/18 05:02 67 24 97/53 (68) 98 03/18/18 04:46 76 24 87/50 (62) 97 03/18/18 04:38 75 24 86/53 (64) 95 03/18/18 04:16 70 24 80/45 (57) 95 03/18/18 04:01 36.9 64 24 86/39 (55) 95 Mechanical Ventilator 50 03/18/18 03:46 96 24 84/45 (58) 96 Mechanical Ventilator 50 03/18/18 03:31 84 24 80/44 (56) 98 Mechanical Ventilator 50 03/18/18 03:13 102 24 70/42 (51) 98 Mechanical Ventilator 50 03/18/18 03:06 103 24 67/37 (47) 98 Mechanical Ventilator 50 03/18/18 03:02 71 24 71/38 (49) 97 Mechanical Ventilator 50 03/18/18 02:32 96 24 134/112 (119) 100 Mechanical Ventilator 50 03/18/18 02:23 50 03/18/18 02:03 115 23 93/54 (67) 94 Mechanical Ventilator 50 03/18/18 01:58 116 17 79/24 (42) 96 Mechanical Ventilator 50 03/18/18 01:48 85 24 78/57 (64) 93 Mechanical Ventilator 50 03/18/18 01:47 87 24 74/51 (59) 96 Mechanical Ventilator 50 03/18/18 01:42 65 24 65/46 (52) 96 Mechanical Ventilator 50 03/18/18 01:36 66 24 55/31 (39) 96 Mechanical Ventilator 50 03/18/18 01:11 92 17 122/96 (105) 96 Mechanical Ventilator 50 03/18/18 01:00 50 03/18/18 00:53 50 03/18/18 00:52 74 19 151/113 (126) 94 Mechanical Ventilator 50 03/18/18 00:42 72 19 164/96 (118) 100 Mechanical Ventilator 50 03/18/18 00:33 76 21 118/78 (91) 99 Mechanical Ventilator 50 7/31/18 00:22 72 17 80/54 (63) 97 Mechanical Ventilator 50 7/18 23:10 65 22 97 7/30/18 22:55 63 16 97 7/30/18 22:30 36.5 85 16 105/65 (78) 95 BiPAP 40 7/30/18 22:26 36.0 76 20 96 3.0 7/30/18 22:15 96 BiPAP 40 7/18 20:33 36.0 76 20 115/68 (84) 96 BiPAP 730/18 17:15 67 95 50 7/30/18 17:00 36.4 75 20 92/54 BiPAP 30/18 16:21 36.5 82 25 83/51 99 03/17/18 15:48 82 25 99 03/17/18 15:43 82 29 99 03/17/18 15:19 83/51 7/18 15:18 81/47 18 15:13 67 24 98 18 14:54 90/47 18 14:54 74 18 14:53 74 16 90/47 97 BiPAP 18 14:43 70 17 97 03/17/18 14:32 86/46 18 14:13 66 17 18 14:08 67 17 18 14:05 78 91 50 03/17/18 13:46 82/41 18 13:45 80/34 3018 13:08 74 15 94 18 13:03 73 12 94 18 13:02 83/33 18 12:33 74 18 92 18 12:32 81/38 18 12:18 90/62 18 12:17 75 20 90/62 98 Room Air 3.0 18 11:03 77 15 91 18 11:00 105/48 18 10:59 80 16 105/48 92 Nasal Cannula 3.0 18 10:33 74 23 89 03/17/18 10:32 74 03/17/18 10:32 66/38 18 10:14 92/51 7/30/18 10:10 36.5 75 18 94/53 89 Nasal Cannula 3.0 General: Alert. nontoxic. Following complex commands Skin: Warm, dry, Head: Atraumatic Ears, nose, mouth and throat: Endotracheal tube present Cardiovascular: Normal peripheral perfusion Respiratory: no respiratory distress, clear bilaterally Gastrointestinal: Non distended Musculoskeletal: No deformity Laboratory Results Last 24 Hours Test 03/17/18 10:15 03/17/18 12:45 03/17/18 14:00 03/17/18 17:42 White Blood Count 10.99 K/uL Red Blood Count 6.41 M/uL Hemoglobin 13.7 g/dL Hematocrit 44.3 % Mean Corpuscular Volume 69.1 fL Mean Corpuscular Hemoglobin 21.4 pg Mean Corpuscular Hemoglobin Concent 30.9 g/dl Platelet Count 169 K/uL Neutrophils (%) (Auto) 78.8 % Lymphocytes (%) (Auto) 13.3 % Monocytes (%) (Auto) 6.9 % Eosinophils (%) (Auto) 0.4 % Basophils (%) (Auto) 0.3 % Neutrophils # (Auto) 8.67 K/uL Lymphocytes # (Auto) 1.46 K/uL Monocytes # (Auto) 0.76 K/uL Eosinophils # (Auto) 0.04 K/uL Basophils # (Auto) 0.03 K/uL RDW Standard Deviation 55.3 fL RDW Coefficient of Variation 22.4 % Immature Granulocyte % (Auto) 0.3 % Immature Granulocyte # (Auto) 0.03 K/uL Platelet Estimate DECREASED Anisocytosis PRESENT Microcytosis PRESENT Spherocytes 1+ Prothrombin Time 22.9 SECONDS Prothromb Time International Ratio 2.2 Activated Partial Thromboplast Time 39.4 SECONDS Partial Thromboplastin Ratio 1.5 Sodium Level 140 mmol/L Potassium Level 4.2 mmol/L Chloride Level 106 mmol/L Carbon Dioxide Level 28 mmol/L Anion Gap 6.0 mmol/L Blood Urea Nitrogen 59 mg/dl Creatinine 2.00 mg/dl Est Creatinine Clear Calc Drug Dose 35.0 ml/min Estimated GFR () 28.0 Estimated GFR (Non- 24.2 BUN/Creatinine Ratio 29.7 Random Glucose 128 mg/dl Estimated Average Glucose 157 mg/dl Hemoglobin A1c 7.1 % Calcium Level 8.4 mg/dl Total Bilirubin 0.3 mg/dl Direct Bilirubin < 0.1 mg/dl Aspartate Amino Transf (AST/SGOT) 16 U/L Alanine Aminotransferase (ALT/SGPT) 19 U/L Alkaline Phosphatase 104 U/L Troponin I < 0.015 ng/ml Total Protein 7.5 gm/dl Albumin 2.9 gm/dl Venous Blood pH 7.19 Venous Blood Partial Pressure CO2 77 mmHg Venous Blood Partial Pressure O2 30 mmHg Venous Blood HCO3 29 mmol/L Venous Blood Oxygen Saturation < 60.0 % Venous Blood Base Excess -1.2 mEq/L Urine Color YELLOW Urine Appearance CLOUDY Urine pH 5.0 Urine Specific [place] 1.019 Urine Protein TRACE Urine Glucose (UA) NEG Urine Ketones NEG Urine Occult Blood 1+ Urine Nitrite POS Urine Bilirubin NEG Urine Urobilinogen NEG Urine Leukocyte Esterase MODERATE Urine WBC (Auto) >30 /hpf Urine RBC (Auto) 5-10 /hpf Urine Hyaline Casts (Auto) 1-5 /lpf Urine Epithelial Cells (Auto) 5-10 /lpf Urine Bacteria (Auto) 2+ Arterial Blood pH 7.18 Arterial Blood Partial Pressure CO2 71 mmHg Arterial Blood Partial Pressure O2 91 mm/Hg Arterial Blood HCO3 26 mmol/L Arterial Blood Oxygen Saturation 95.0 % Arterial Blood Base Excess -3.8 mEq/L Arterial Blood Gas Delivery 50% Yovani Test POS Test 03/17/18 18:08 03/17/18 20:45 03/17/18 21:25 03/17/18 23:46 Bedside Glucose 100 mg/dl 85 mg/dl 90 mg/dl Venous Blood pH 7.16 Venous Blood Partial Pressure CO2 80 mmHg Venous Blood Partial Pressure O2 38 mmHg Venous Blood HCO3 28 mmol/L Venous Blood Oxygen Saturation 62.4 % Venous Blood Base Excess -2.0 mEq/L Test 03/17/18 23:49 03/18/18 01:56 03/18/18 04:37 Bedside Venous pH 7.14 Bedside Venous pCO2 82 mmHg Bedside Venous pO2 < 32 mmHg Bedside Venous HCO3 28 meq/L Bedside Venous Blood Total CO2 31 mEq/l Bedside Venous Blood O2 Saturation 15.0 % Bedside Venous Blood Base Excess -1.0 meq/L Bedside FiO2 40 % Venous Blood pH 7.26 7.30 Venous Blood Partial Pressure CO2 59 mmHg 46 mmHg Venous Blood Partial Pressure O2 39 mmHg 55 mmHg Venous Blood HCO3 26 mmol/L 22 mmol/L Venous Blood Oxygen Saturation 65.7 % 81.0 % Venous Blood Base Excess -2.2 mEq/L -4.2 mEq/L White Blood Count 8.93 K/uL Red Blood Count 5.57 M/uL Hemoglobin 11.7 g/dL Hematocrit 38.9 % Mean Corpuscular Volume 69.8 fL Mean Corpuscular Hemoglobin 21.0 pg Mean Corpuscular Hemoglobin Concent 30.1 g/dl Platelet Count 147 K/uL Neutrophils (%) (Auto) 77.4 % Lymphocytes (%) (Auto) 12.4 % Monocytes (%) (Auto) 9.5 % Eosinophils (%) (Auto) 0.3 % Basophils (%) (Auto) 0.2 % Neutrophils # (Auto) 6.90 K/uL Lymphocytes # (Auto) 1.11 K/uL Monocytes # (Auto) 0.85 K/uL Eosinophils # (Auto) 0.03 K/uL Basophils # (Auto) 0.02 K/uL RDW Standard Deviation 56.5 fL RDW Coefficient of Variation 22.1 % Immature Granulocyte % (Auto) 0.2 % Immature Granulocyte # (Auto) 0.02 K/uL Platelet Estimate NORMAL Poikilocytosis PRESENT Anisocytosis PRESENT Microcytosis PRESENT Prothrombin Time 28.0 SECONDS Prothromb Time International Ratio 2.7 Sodium Level 140 mmol/L Potassium Level 4.5 mmol/L Chloride Level 112 mmol/L Carbon Dioxide Level 22 mmol/L Anion Gap 6.0 mmol/L Blood Urea Nitrogen 50 mg/dl Creatinine 1.72 mg/dl Est Creatinine Clear Calc Drug Dose 41.4 ml/min Estimated GFR () 33.6 Estimated GFR (Non- 29.0 BUN/Creatinine Ratio 28.8 Random Glucose 116 mg/dl Lactic Acid Level 1.1 mmol/L Calcium Level 7.5 mg/dl Assessment & Plan Reason Critically Ill: 72-year-old female with acute kidney injury in the setting of chronic kidney disease with acidemia secondary to acute hypercapnic respiratory failure PLAN: Neuro: Acute encephalopathy -Likely secondary to hypercarbic respiratory failure in the setting of [place] with narcotic medication in narcotic milady patient -We will check ammonia level Resp: COPD: Oxygen dependent Continued tobacco abuse Hypoxic hypercarbic respiratory failure: Acute: Improved Likely has obstructive sleep apnea versus obesity hypoventilation syndrome -Blood gas normalized while on mechanical ventilator, successful extubation today -Reviewed pulmonary consultation dated July 05, 2017, obstructive sleep apnea on CPAP at home, reported history of Coumadin therapy for recurrent PE DVT: I do not see additional evidence of this in the medical record at this time Given 1 dose Provigil secondary to somnolence today CV: History coronary artery disease Permanent A. fib on Coumadin History of acute on chronic diastolic heart failure -Reviewed cardiology consultation notes from 07/08/2017 -Echo to be obtained today Prolonged QT on EKG March 17, 2018 -Avoid QT prolonging medications Fluids/Renal: Chronic kidney disease stage III Acute kidney injury: Baseline creatinine likely 1.2-1.3 -Will await echo for better evaluation of volume status ID: Uncomplicated urinary tract infection: Gram-negative bacilli on Cipro -Patient previously received Rocephin, noted penicillin allergy of unclear etiology will convert to Rocephin secondary to drug interactions with Coumadin -We will treat with 5 days effective therapy starting today given 20% resistance of E. coli to Cipro based on local antibiogram GI/Nutrition: AHA diet -Progress as tolerated Heme: DVT prophylaxis -Warfarin, anticipate increased secondary to Cipro use -Home dosing on hold, given 2.5 mg today Endocrine: Hemoglobin A1c 7.1 -ICU hyperglycemia protocol Vascular access: Peripheral IVs Code Status: DO NOT RESUSCITATE in event of cardiac arrest, patient okay with short-term intubation, not comfortable with tracheostomy or prolonged ventilatory dependence. Patient was discussed on multidisciplinary rounds. I have personally spent 60 minutes of critical care time in the direct management of this patient. This is a life/limb threatening event. This includes time spent evaluating patient, direct bedside care, chart review, placing orders, interpretation of diagnostic studies, discussion with consultants, patient, and/or family members regarding treatment decisions, as well as other required patient management activities. This time is exclusive of all separately billable procedures, and teaching time and separate from and in addition to any other critical care service time.
[2018-03-18] MEDS: CEFTRIAXONE SOD INJ 1000 MG in DEXTROSE 5% 50ML IV SCH (09:30)
[2018-03-18] MEDS: TIOTROPIUM BROMIDE 5 PUFF/90 MCG INH INH SCH (09:30)
[2018-03-18] MEDS: METOPROLOL TARTRATE 25 MG TAB PO SCH ×3 (09:31→20:15)
[2018-03-18] MEDS: DICLOFENAC SOD 1% GEL 100 GM TUBE EXT SCH ×4 (09:31→20:31)
[2018-03-18] MEDS: PANTOprazole SOD 40 MG TAB PO SCH (09:31)
[2018-03-18] MEDS: SERTRALINE HCL 50 MG TAB PO SCH (09:31)
[2018-03-18] MEDS: CALCIUM 600MG + VIT D 400 IU TAB PO SCH (09:31)
[2018-03-18] MEDS: FEBUXOSTAT 40 MG TAB PO SCH (09:32)
[2018-03-18] MEDS: ASPIRIN 81 MG ECTAB PO SCH (09:32)
[2018-03-18] MEDS: SPIRONOLACTONE 25 MG TAB PO SCH (09:32)
[2018-03-18] MEDS: ROSUVASTATIN CALCIUM 10 MG TAB PO SCH (09:33)
[2018-03-18] MEDS: MAGNESIUM OXIDE 400 MG TAB PO SCH (09:33)
[2018-03-18] MEDS: TORSEMIDE 20 MG TAB PO SCH ×2 (09:33→20:37)
[2018-03-18] MEDS: DOCUSATE SODIUM 100 MG CAP PO SCH (09:33)
[2018-03-18] MEDS: BUDESONIDE/FORMOTEROL FUMARATE 160/4.5 60 PUFFS/INHALER INH SCH ×2 (09:34→20:33)
[2018-03-18] MEDS: ANASTROZOLE 1 MG TAB PO SCH (09:35)
[2018-03-18] MEDS: IPRATROPIUM BROMIDE HFA INHALER INH SCH ×2 (09:37→11:35)
[2018-03-18] MEDS: PREGABALIN 150 MG CAP PO SCH ×3 (09:37→20:36)
--- NOTE | 2018-03-18 09:39 | DIAGNOSTIC IMAGING REPORT ---
(PORFIRIO/BLAD)RETROPERITON COMP HISTORY: Renal insufficiency renal failure COMPARISON: None. FINDINGS: Right kidney: Maximum dimension 9.2 cm. Moderate renal cortical thinning. No evidence for hydronephrosis. Left kidney: Maximum dimension 10.7 cm. No evidence for hydronephrosis. Mild cortical thinning. Bladder: No bladder wall thickening. The bilateral ureteral jets were identified. IMPRESSION: 1. No evidence for hydronephrosis. 2. Mild/moderate renal cortical thinning suggesting nonobstructive renal insufficiency. The above report was generated using voice recognition software. It may contain grammatical, syntax or spelling errors. Electronically signed by: Tony Butts M.D. 03/18/2018 9:38 AM Dictated Date/Time: 03/18/2018 9:36 AM
[2018-03-18] MEDS ORDERED: PANTOprazole INJ 40 MG in SYRINGE 0 ML IV SCH (11:00)
[2018-03-18] MEDS ORDERED: ETOMIDATE 2 MG/ML 20 ML VIAL IV ONE (13:54)
[2018-03-18] MEDS ORDERED: SUCCINYLCHOLINE CHLORIDE 20 MG/ML 10 ML VIAL IV ONE (13:54)
[2018-03-18] MEDS ORDERED: CIPROFLOXACIN 400MG / D5W IV SCH ×2 (14:00→16:00)
[2018-03-18] MEDS ORDERED: ALBUT/IPRATROP 3MG/0.5MG NEB 3 ML VIAL INH PRN (14:00)
--- NOTE | 2018-03-18 14:17 | Progress Note ---
Subjective Date of Service: Mar 18, 2018. Subjective Pt evaluation today including: conversation w/ patient, conversation w/ family , physical exam, chart review, lab review, review of studies, conversation w/ bi consultant, review of inpatient medication list Sitting up in chair, conversational, follow-up commands, right shoulder pain is associated with limited range of motion, Problem List Medical Problems: (1) Altered mental status Status: Acute (2) Chronic kidney disease (CKD) Status: Acute (3) Left leg cellulitis Status: Acute (4) Respiratory failure Status: Acute (5) Shortness of breath Status: Acute (6) Syncope Status: Acute Review of Systems Constitutional: + weakness, + fatigue, No fever, No chills, No sweats, No weight loss, No problem reported Eyes: No worsening of vision, No eye pain, No redness, No discharge, No diplopia ENT: No hearing loss, No unusual epistaxis, No nasal symptoms, No sore throat, No tinnitus, No dental problems, No trouble swallowing Respiratory: + shortness of breath, No cough, No sputum, No wheezing, No dyspnea on exertion, No dyspnea at rest, No hemoptysis Cardiac: + edema, No chest pain, No orthopnea, No PND, No claudication, No palpitations Abdomen: No pain, No nausea, No vomiting, No diarrhea, No constipation Musculoskeletal: + joint pain, No muscle pain, No swelling, No calf pain Female : No dysuria, No urinary frequency, No hematuria, No incontinence, No abnormal vaginal bleeding, No vaginal discharge Neurologic: No memory loss, No paralysis, No weakness, No numbness/tingling, No vertigo, No balance problems Psychiatric: No depression symptoms, No anhedonism, No anxiety, No insomnia, No substance abuse Heme: No abnormal bleeding/bruising, No clotting problems, No swollen lymph nodes, No night sweats Endo: No fatigue, No excessive thirst, No excessive urination Skin: No rash, No itch, No new/changing skin lesions, No color change, No bleeding Objective Vital Signs Date Time Temp Pulse Resp B/P (MAP) Pulse Ox O2 Delivery O2 Flow Rate FiO2 03/18/18 14:02 120 15 104/58 (73) 91 Nasal Cannula 3.0 03/18/18 13:00 88 13 91 Nasal Cannula 3.0 03/18/18 12:01 87 16 105/70 (82) 94 Nasal Cannula 4.0 03/18/18 11:01 36.7 79 13 107/74 (85) 95 Nasal Cannula 4.0 03/18/18 10:31 77 16 113/60 (77) 96 Nasal Cannula 4.0 03/18/18 10:01 79 12 114/64 (81) 94 Nasal Cannula 6.0 03/18/18 09:31 79 13 109/84 (92) 95 Nasal Cannula 6.0 03/18/18 09:01 78 16 127/65 (85) 94 Nasal Cannula 6.0 03/18/18 09:00 Nasal Cannula 6.0 03/18/18 08:31 80 15 132/63 (86) 97 Nasal Cannula 6.0 03/18/18 08:02 36.6 78 19 125/67 (86) 93 Mechanical Ventilator 03/18/18 08:00 Nasal Cannula 03/18/18 08:00 40 03/18/18 07:46 84 18 127/81 (96) 97 Mechanical Ventilator 03/18/18 07:16 50 03/18/18 07:16 83 24 136/66 (89) 98 Mechanical Ventilator 03/18/18 07:01 64 24 114/77 (89) 95 Mechanical Ventilator 03/18/18 05:47 40 03/18/18 05:46 50 03/18/18 05:39 69 28 103/65 (78) 95 03/18/18 05:16 68 24 101/58 (72) 99 03/18/18 05:02 67 24 97/53 (68) 98 03/18/18 04:46 76 24 87/50 (62) 97 03/18/18 04:38 75 24 86/53 (64) 95 03/18/18 04:16 70 24 80/45 (57) 95 03/18/18 04:01 36.9 64 24 86/39 (55) 95 Mechanical Ventilator 50 03/18/18 03:46 96 24 84/45 (58) 96 Mechanical Ventilator 50 03/18/18 03:31 84 24 80/44 (56) 98 Mechanical Ventilator 50 03/18/18 03:13 102 24 70/42 (51) 98 Mechanical Ventilator 50 03/18/18 03:06 103 24 67/37 (47) 98 Mechanical Ventilator 50 03/18/18 03:02 71 24 71/38 (49) 97 Mechanical Ventilator 50 7/18 02:32 96 24 134/112 (119) 100 Mechanical Ventilator 50 718 02:23 50 7//18 02:03 115 23 93/54 (67) 94 Mechanical Ventilator 50 7//18 01:58 116 17 79/24 (42) 96 Mechanical Ventilator 50 7/18 01:48 85 24 78/57 (64) 93 Mechanical Ventilator 50 718 01:47 87 24 74/51 (59) 96 Mechanical Ventilator 50 718 01:42 65 24 65/46 (52) 96 Mechanical Ventilator 50 718 01:36 66 24 55/31 (39) 96 Mechanical Ventilator 50 718 01:11 92 17 122/96 (105) 96 Mechanical Ventilator 50 718 01:00 50 718 00:53 50 718 00:52 74 19 151/113 (126) 94 Mechanical Ventilator 50 03/18/18 00:42 72 19 164/96 (118) 100 Mechanical Ventilator 50 718 00:33 76 21 118/78 (91) 99 Mechanical Ventilator 50 7/18 00:22 72 17 80/54 (63) 97 Mechanical Ventilator 50 718 23:10 65 22 97 7/30/18 22:55 63 16 97 7/30/18 22:30 36.5 85 16 105/65 (78) 95 BiPAP 40 730/18 22:26 36.0 76 20 96 3.0 718 22:15 96 BiPAP 40 7/18 20:33 36.0 76 20 115/68 (84) 96 BiPAP 7/30/18 17:15 67 95 50 7/30/18 17:00 36.4 75 20 92/54 BiPAP 7/30/18 16:21 36.5 82 25 83/51 99 7/30/18 15:48 82 25 99 7/30/18 15:43 82 29 99 7/30/18 15:19 83/51 7/30/18 15:18 81/47 730/18 15:13 67 24 98 7/30/18 14:54 90/47 718 14:54 74 718 14:53 74 16 90/47 97 BiPAP 03/17/18 14:43 70 17 97 03/17/18 14:32 86/46 Physical Exam General Appearance: WD/WN, no apparent distress, + obese, + pertinent finding ( On nasal cannula oxygen,) Eyes: normal inspection, PERRL, EOMI, sclerae normal ENT: normal ENT inspection, hearing grossly normal, pharynx normal Neck: supple, no adenopathy, thyroid normal, no JVD, no carotid bruits, trachea midline Respiratory/Chest: chest non-tender, normal breath sounds, no respiratory distress, no accessory muscle use, + decreased breath sounds Cardiovascular: regular rate, rhythm, no gallop, no JVD, no murmur, + pertinent finding (23+ edema) Abdomen: normal bowel sounds, non tender, soft, no organomegaly, no pulsatile mass Extremities: normal range of motion, non-tender, normal inspection, no pedal edema, no calf tenderness, normal capillary refill, pelvis stable, + swelling (3 + edema bilateral lower extremity) 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, no motor/sensory deficits, alert, normal mood/affect, oriented x 3 Skin: normal color, warm/dry, no rash, + pertinent finding (Skin fold has erythema) Lymphatic: no adenopathy Laboratory Results Last 24 Hours Test 03/17/18 17:42 03/17/18 18:08 03/17/18 20:45 03/17/18 21:25 Arterial Blood pH 7.18 Arterial Blood Partial Pressure CO2 71 mmHg Arterial Blood Partial Pressure O2 91 mm/Hg Arterial Blood HCO3 26 mmol/L Arterial Blood Oxygen Saturation 95.0 % Arterial Blood Base Excess -3.8 mEq/L Arterial Blood Gas Delivery 50% Yovani Test POS Bedside Glucose 100 mg/dl 85 mg/dl Venous Blood pH 7.16 Venous Blood Partial Pressure CO2 80 mmHg Venous Blood Partial Pressure O2 38 mmHg Venous Blood HCO3 28 mmol/L Venous Blood Oxygen Saturation 62.4 % Venous Blood Base Excess -2.0 mEq/L Test 03/17/18 23:46 03/17/18 23:49 03/18/18 01:56 03/18/18 04:37 Bedside Glucose 90 mg/dl Bedside Venous pH 7.14 Bedside Venous pCO2 82 mmHg Bedside Venous pO2 < 32 mmHg Bedside Venous HCO3 28 meq/L Bedside Venous Blood Total CO2 31 mEq/l Bedside Venous Blood O2 Saturation 15.0 % Bedside Venous Blood Base Excess -1.0 meq/L Bedside FiO2 40 % Venous Blood pH 7.26 7.30 Venous Blood Partial Pressure CO2 59 mmHg 46 mmHg Venous Blood Partial Pressure O2 39 mmHg 55 mmHg Venous Blood HCO3 26 mmol/L 22 mmol/L Venous Blood Oxygen Saturation 65.7 % 81.0 % Venous Blood Base Excess -2.2 mEq/L -4.2 mEq/L White Blood Count 8.93 K/uL Red Blood Count 5.57 M/uL Hemoglobin 11.7 g/dL Hematocrit 38.9 % Mean Corpuscular Volume 69.8 fL Mean Corpuscular Hemoglobin 21.0 pg Mean Corpuscular Hemoglobin Concent 30.1 g/dl Platelet Count 147 K/uL Neutrophils (%) (Auto) 77.4 % Lymphocytes (%) (Auto) 12.4 % Monocytes (%) (Auto) 9.5 % Eosinophils (%) (Auto) 0.3 % Basophils (%) (Auto) 0.2 % Neutrophils # (Auto) 6.90 K/uL Lymphocytes # (Auto) 1.11 K/uL Monocytes # (Auto) 0.85 K/uL Eosinophils # (Auto) 0.03 K/uL Basophils # (Auto) 0.02 K/uL RDW Standard Deviation 56.5 fL RDW Coefficient of Variation 22.1 % Immature Granulocyte % (Auto) 0.2 % Immature Granulocyte # (Auto) 0.02 K/uL Platelet Estimate NORMAL Poikilocytosis PRESENT Anisocytosis PRESENT Microcytosis PRESENT Prothrombin Time 28.0 SECONDS Prothromb Time International Ratio 2.7 Sodium Level 140 mmol/L Potassium Level 4.5 mmol/L Chloride Level 112 mmol/L Carbon Dioxide Level 22 mmol/L Anion Gap 6.0 mmol/L Blood Urea Nitrogen 50 mg/dl Creatinine 1.72 mg/dl Est Creatinine Clear Calc Drug Dose 41.4 ml/min Estimated GFR () 33.6 Estimated GFR (Non- 29.0 BUN/Creatinine Ratio 28.8 Random Glucose 116 mg/dl Lactic Acid Level 1.1 mmol/L Calcium Level 7.5 mg/dl Test 03/18/18 09:14 03/18/18 11:07 Ammonia 33.0 umol/L Bedside Glucose 129 mg/dl Assessment and Plan 72-year-old female admitted because of right shoulder pain secondary to fall at home on 03/17/2018, was transferred to MICU because of hypercapnic respiratory failure was intubated This morning was extubated, Acute hypercapnic respiratory failure, inbubated and extubated hx of COPD chronic respiratory failure. Obstructive sleep apnea, has CPAP machine at home Patient report has CPAP machine at home, was follow-up with turning machine operator helper in [facility] [place] atrial fibrillation, on Coumadin INR 2.7 Possible acute kidney failure creatinine with stage III chronic kidney disease CR 2 upon admission, improved to 1.7 today Morbid obesity with BMI 54.1 coronary artery disease, depression, type 2 diabetes, gout, hyperlipidemia hypothyroidism, obstructive secondary hyperparathyroidism and vitamin D deficiency. Above condition stable continue current care Continue nasal cannula oxygen, right shoulder pain, topical Voltaren, PT OT, Discussed with patient about her condition and care plan, answered all her questions Palliative care and orthopedic cast specialist patient is do not resuscitation DVT prophylaxis covered, bilingual social worker for discharge planning Continued [facility] stay due to: multiple IV medications needed Discharge planning: uncertain
--- NOTE | 2018-03-18 14:54 | Palliative Care Consultation ---
Consultation Date of Consultation: Mar 18, 2018. Requesting Physician: Dr. Harkins Attending Physician: Dr. Mariano Reason for Consultation: Goals of care History of Present Illness This 72 year old female patient with PMH listed below but also including obesity with ambulatory dysfunction using mechanical wheelchair, presented to the hospital yesterday after a fall out of her wheelchair. She never hit her head or lost consciousness. Apparently she falls out of her wheelchair a good bit and has the ambulance crew come to pick her up. She lives at home with her daughter, Valentine. Upon arrival to hospital, patient received IV narcotics for pain from the fall. She became sedate and somnolent. Eventually she was in hypercarbic respiratory failure and required intubation and transfer to ICU. This morning she has improved and is now extubated. Of note, patient smokes about a pack a day-- she removes her oxygen and goes to the bathroom to smoke. Given patients medical condition, comorbidities and code status, palliative care is consulted to assist in establishing goals of care and discuss code status. Patient awake, alert and oriented in room 107. Her throat is a little "raw", but she is feeling okay. Still somewhat tired and groggy from intubation/ extubation. I spoke with the patient about code status, she DOES NOT want to be resuscitated in the event of cardiac or respiratory arrest. She would only be agreeable to short-term intubation if needed. Dr. Harkins spoke with patient's daughter, Valentine, who agreed that patient would likely not want any sort of resuscitative measures. Patient is uncertain of long-term goals at this point. We will continue to discuss during hospitalization. Past Medical/Surgical History Medical History: COPD with a degree of chronic respiratory failure Atrial fibrillation CAD CKD stage III Depression DM type 2 Gout HLD Hypothyroidism JONATHON Secondary hyperparathyroidism Vitamin D deficiency Social History Smoking Status: Heavy Tobacco Smoker History of Alcohol Use: No Marital Status: Occupation Status: retired Review of Systems Constitutional: + weakness ENT: No trouble swallowing Respiratory: + cough, + dyspnea on exertion, No sputum, No shortness of breath Cardiac: + edema, No chest pain Abdomen: No pain, No nausea, No vomiting Musculoskeletal: + problem reported (pain from fall) Female : No problem reported Psychiatric: No depression symptoms, No anxiety Allergies Coded Allergies: Melatonin (Verified Allergy, Severe, RASH, 03/17/18) Penicillins (Verified Allergy, Unknown, UNLNOWN, 03/17/18) Medications Current Inpatient Medications Medications (Trade) Dose Ordered Sig/Isidoro Route Start Time Stop Time Status Last Admin Dose Admin Ioversol (Optiray 320) 100 ml UD PRN IV 03/17/18 12:45 03/21/18 12:44 Acetaminophen (Tylenol Tab) 650 mg Q4H PRN PO 03/17/18 15:00 04/16/18 14:59 Al Hydrox/Mg Hydrox/Simethicone (Maalox Max Susp) 15 ml Q4H PRN PO 03/17/18 15:00 04/16/18 14:59 Magnesium Hydroxide (Milk Of Magnesia Susp) 30 ml Q12H PRN PO 03/17/18 15:00 04/16/18 14:59 Ondansetron HCl (Zofran Inj) 4 mg Q6H PRN IV 03/17/18 15:00 04/16/18 14:59 Polyethylene (Miralax Powder Packet) 17 gm DAILY PRN PO 03/17/18 15:00 04/16/18 14:59 Diclofenac Sodium (Voltaren 1% Top Gel) 1 appln QID EXT 03/17/18 17:00 04/16/18 16:59 03/18/18 11:11 1 APPLN Oxycodone HCl (Roxicodone Immediate Rel Tab) 2.5 mg Q4H PRN PO 03/17/18 15:00 03/31/18 14:59 Anastrozole (Arimidex Tab) 1 mg DAILY PO 03/18/18 09:00 04/17/18 08:59 03/18/18 09:35 1 MG Aspirin (Ecotrin Tab) 81 mg QAM PO 03/18/18 09:00 04/17/18 08:59 03/18/18 09:32 81 MG Calcium/Vitamin D (Caltrate Plus Tab) 1 tab DAILY PO 03/18/18 09:00 04/17/18 08:59 03/18/18 09:31 1 TAB Docusate Sodium (coLACE CAP) 100 mg DAILY PO 03/18/18 09:00 04/17/18 08:59 03/18/18 09:33 100 MG Ergocalciferol (Vitamin D Cap) 50,000 interunit Mo@0900 PO 03/24/18 09:00 04/23/18 08:59 Levothyroxine Sodium (Synthroid Tab) 112 mcg DAILYBB PO 03/18/18 06:00 04/17/18 06:59 03/18/18 05:59 112 MCG Magnesium Oxide (Mag-Ox Tab) 400 mg DAILY PO 03/18/18 09:00 04/17/18 08:59 03/18/18 09:33 400 MG Metoprolol Tartrate (Lopressor Tab) 25 mg TID PO 03/17/18 21:00 04/16/18 20:59 03/18/18 09:31 25 MG Pantoprazole Sodium (Protonix Tab) 40 mg DAILY PO 03/18/18 09:00 04/17/18 08:59 03/18/18 09:31 40 MG Potassium Chloride (Klor-Con Tab) 20 meq BID PO 03/17/18 21:00 04/16/18 20:59 Future Hold Pregabalin (Lyrica Cap) 150 mg TID PO 03/17/18 21:00 04/16/18 20:59 03/18/18 09:37 150 MG Rosuvastatin Calcium (Crestor Tab) 10 mg DAILY PO 03/18/18 09:00 04/17/18 08:59 03/18/18 09:33 10 MG Sertraline HCl (Zoloft Tab) 150 mg DAILY PO 03/18/18 09:00 04/17/18 08:59 03/18/18 09:31 150 MG Spironolactone (Aldactone Tab) 25 mg DAILY PO 03/18/18 09:00 04/17/18 08:59 03/18/18 09:32 25 MG Torsemide (Demadex Tab) 10 mg BID PO 03/17/18 21:00 04/16/18 20:59 03/18/18 09:33 10 MG Warfarin Sodium (Coumadin Tab) 8 mg DAILY@1600 PO 03/17/18 18:00 04/16/18 17:59 Future Hold Febuxostat (Uloric) 40 mg DAILY PO 03/18/18 09:00 04/17/18 08:59 03/18/18 09:32 40 MG Miscellaneous Information (Order Awaiting Action) 1 ea QS N/A 03/18/18 00:00 04/17/18 00:00 Tiotropium [place] (Spiriva Handihaler Inhaler) 1 puff QAM INH 03/18/18 09:00 04/17/18 08:59 03/18/18 09:30 1 PUFF Budesonide/ Formoterol Fumarate (Symbicort 160/ 4.5 Inh) 2 puffs BID INH 03/17/18 21:00 04/16/18 20:59 03/18/18 09:34 2 PUFFS Insulin Aspart (novoLOG ASPART) SLIDING SCALE G... ACHS SC 03/17/18 17:45 04/16/18 17:44 Glucose (Glucose 40% Gel) 15-30 GRAMS 15 GRAMS... UD PRN PO 03/17/18 17:30 04/16/18 17:29 Glucose (Glucose Chew Tab) 4-8 Tablets 4 Tabl... UD PRN PO 03/17/18 17:30 04/16/18 17:29 Dextrose (Dextrose 50% 50ML Syringe) 25-50ML 25ML FOR ... UD PRN IV 03/17/18 17:30 04/16/18 17:29 Glucagon (Glucagon Inj) 1 mg UD PRN IM 03/17/18 17:30 04/16/18 17:29 Carbohydrates (Carbohydrates For Hypoglycemia) 15-30 GRAMS 15 grams if BSG 54-69... UD PRN PO 03/17/18 17:30 04/16/18 17:29 Fentanyl Citrate (Fentanyl Inj) 50 mcg Q2HWA PRN IV 03/17/18 22:15 03/31/18 22:14 Ceftriaxone Sodium 1 gm/ Dextrose 50 ml @ 100 mls/hr DAILY@0900 IV 03/18/18 10:00 03/22/18 09:29 03/18/18 09:30 100 MLS/HR Warfarin Sodium (Coumadin Tab) 2.5 mg TODAY@1600 ONCE PO 03/18/18 16:00 03/18/18 16:01 Albuterol/ Ipratropium (Duoneb) 3 ml Q6R PRN INH 03/18/18 14:00 04/17/18 13:59 Nystatin (Mycostatin Powder) 1 appln Q12 EXT 03/18/18 21:00 04/17/18 20:59 Physical Exam Date Time Temp Pulse Resp B/P (MAP) Pulse Ox O2 Delivery O2 Flow Rate FiO2 03/18/18 11:01 36.7 79 13 107/74 (85) 95 Nasal Cannula 4.0 03/18/18 10:31 77 16 113/60 (77) 96 Nasal Cannula 4.0 03/18/18 10:01 79 12 114/64 (81) 94 Nasal Cannula 6.0 03/18/18 09:31 79 13 109/84 (92) 95 Nasal Cannula 6.0 03/18/18 09:01 78 16 127/65 (85) 94 Nasal Cannula 6.0 03/18/18 09:00 Nasal Cannula 6.0 03/18/18 08:31 80 15 132/63 (86) 97 Nasal Cannula 6.0 03/18/18 08:02 36.6 78 19 125/67 (86) 93 Mechanical Ventilator 03/18/18 08:00 Nasal Cannula 03/18/18 08:00 40 03/18/18 07:46 84 18 127/81 (96) 97 Mechanical Ventilator 03/18/18 07:16 50 03/18/18 07:16 83 24 136/66 (89) 98 Mechanical Ventilator 03/18/18 07:01 64 24 114/77 (89) 95 Mechanical Ventilator 03/18/18 05:47 40 03/18/18 05:46 50 03/18/18 05:39 69 28 103/65 (78) 95 03/18/18 05:16 68 24 101/58 (72) 99 03/18/18 05:02 67 24 97/53 (68) 98 03/18/18 04:46 76 24 87/50 (62) 97 03/18/18 04:38 75 24 86/53 (64) 95 03/18/18 04:16 70 24 80/45 (57) 95 03/18/18 04:01 36.9 64 24 86/39 (55) 95 Mechanical Ventilator 50 03/18/18 03:46 96 24 84/45 (58) 96 Mechanical Ventilator 50 03/18/18 03:31 84 24 80/44 (56) 98 Mechanical Ventilator 50 03/18/18 03:13 102 24 70/42 (51) 98 Mechanical Ventilator 50 03/18/18 03:06 103 24 67/37 (47) 98 Mechanical Ventilator 50 03/18/18 03:02 71 24 71/38 (49) 97 Mechanical Ventilator 50 18 02:32 96 24 134/112 (119) 100 Mechanical Ventilator 50 18 02:23 50 718 02:03 115 23 93/54 (67) 94 Mechanical Ventilator 50 718 01:58 116 17 79/24 (42) 96 Mechanical Ventilator 50 18 01:48 85 24 78/57 (64) 93 Mechanical Ventilator 50 03/18/18 01:47 87 24 74/51 (59) 96 Mechanical Ventilator 50 18 01:42 65 24 65/46 (52) 96 Mechanical Ventilator 50 03/18/18 01:36 66 24 55/31 (39) 96 Mechanical Ventilator 50 03/18/18 01:11 92 17 122/96 (105) 96 Mechanical Ventilator 50 03/18/18 01:00 50 03/18/18 00:53 50 03/18/18 00:52 74 19 151/113 (126) 94 Mechanical Ventilator 50 03/18/18 00:42 72 19 164/96 (118) 100 Mechanical Ventilator 50 18 00:33 76 21 118/78 (91) 99 Mechanical Ventilator 50 18 00:22 72 17 80/54 (63) 97 Mechanical Ventilator 50 03/17/18 23:10 65 22 97 718 22:55 63 16 97 7/30/18 22:30 36.5 85 16 105/65 (78) 95 BiPAP 40 73018 22:26 36.0 76 20 96 3.0 18 22:15 96 BiPAP 40 718 20:33 36.0 76 20 115/68 (84) 96 BiPAP 7/30/18 17:15 67 95 50 7//18 17:00 36.4 75 20 92/54 BiPAP 7/18 16:21 36.5 82 25 83/51 99 7/30/18 15:48 82 25 99 7/30/18 15:43 82 29 99 7/30/18 15:19 83/51 730/18 15:18 81/47 730/18 15:13 67 24 98 7/30/18 14:54 90/47 718 14:54 74 7/30/18 14:53 74 16 90/47 97 BiPAP 03/17/18 14:43 70 17 97 03/17/18 14:32 86/46 03/17/18 14:13 66 17 03/17/18 14:08 67 17 03/17/18 14:05 78 91 50 General Appearance: no apparent distress, + obese ENT: hearing grossly normal Neck: supple, no JVD Respiratory: no respiratory distress, no accessory muscle use, + decreased breath sounds Cardiovascular: regular rate, rhythm, + normal peripheral pulses, + pertinent finding (BLE edema) Abdomen: normal bowel sounds, non tender, soft Neurologic/Psychiatric: alert (slightly groggy), normal mood/affect, oriented x 3 Skin: normal color Laboratory Results Last 24 Hours Test 03/17/18 17:42 03/17/18 18:08 03/17/18 20:45 03/17/18 21:25 Arterial Blood pH 7.18 Arterial Blood Partial Pressure CO2 71 mmHg Arterial Blood Partial Pressure O2 91 mm/Hg Arterial Blood HCO3 26 mmol/L Arterial Blood Oxygen Saturation 95.0 % Arterial Blood Base Excess -3.8 mEq/L Arterial Blood Gas Delivery 50% Yovani Test POS Bedside Glucose 100 mg/dl 85 mg/dl Venous Blood pH 7.16 Venous Blood Partial Pressure CO2 80 mmHg Venous Blood Partial Pressure O2 38 mmHg Venous Blood HCO3 28 mmol/L Venous Blood Oxygen Saturation 62.4 % Venous Blood Base Excess -2.0 mEq/L Test 03/17/18 23:46 03/17/18 23:49 03/18/18 01:56 03/18/18 04:37 Bedside Glucose 90 mg/dl Bedside Venous pH 7.14 Bedside Venous pCO2 82 mmHg Bedside Venous pO2 < 32 mmHg Bedside Venous HCO3 28 meq/L Bedside Venous Blood Total CO2 31 mEq/l Bedside Venous Blood O2 Saturation 15.0 % Bedside Venous Blood Base Excess -1.0 meq/L Bedside FiO2 40 % Venous Blood pH 7.26 7.30 Venous Blood Partial Pressure CO2 59 mmHg 46 mmHg Venous Blood Partial Pressure O2 39 mmHg 55 mmHg Venous Blood HCO3 26 mmol/L 22 mmol/L Venous Blood Oxygen Saturation 65.7 % 81.0 % Venous Blood Base Excess -2.2 mEq/L -4.2 mEq/L White Blood Count 8.93 K/uL Red Blood Count 5.57 M/uL Hemoglobin 11.7 g/dL Hematocrit 38.9 % Mean Corpuscular Volume 69.8 fL Mean Corpuscular Hemoglobin 21.0 pg Mean Corpuscular Hemoglobin Concent 30.1 g/dl Platelet Count 147 K/uL Neutrophils (%) (Auto) 77.4 % Lymphocytes (%) (Auto) 12.4 % Monocytes (%) (Auto) 9.5 % Eosinophils (%) (Auto) 0.3 % Basophils (%) (Auto) 0.2 % Neutrophils # (Auto) 6.90 K/uL Lymphocytes # (Auto) 1.11 K/uL Monocytes # (Auto) 0.85 K/uL Eosinophils # (Auto) 0.03 K/uL Basophils # (Auto) 0.02 K/uL RDW Standard Deviation 56.5 fL RDW Coefficient of Variation 22.1 % Immature Granulocyte % (Auto) 0.2 % Immature Granulocyte # (Auto) 0.02 K/uL Platelet Estimate NORMAL Poikilocytosis PRESENT Anisocytosis PRESENT Microcytosis PRESENT Prothrombin Time 28.0 SECONDS Prothromb Time International Ratio 2.7 Sodium Level 140 mmol/L Potassium Level 4.5 mmol/L Chloride Level 112 mmol/L Carbon Dioxide Level 22 mmol/L Anion Gap 6.0 mmol/L Blood Urea Nitrogen 50 mg/dl Creatinine 1.72 mg/dl Est Creatinine Clear Calc Drug Dose 41.4 ml/min Estimated GFR () 33.6 Estimated GFR (Non- 29.0 BUN/Creatinine Ratio 28.8 Random Glucose 116 mg/dl Lactic Acid Level 1.1 mmol/L Calcium Level 7.5 mg/dl Test 03/18/18 09:14 03/18/18 11:07 Ammonia 33.0 umol/L Bedside Glucose 129 mg/dl Assessment & Plan Problem list: Weakness/ambulatory dysfunction s/p fall Obesity Advanced COPD Hypercarbic respiratory failure Goals of care Palliative care recs: -Patient would like to be DNR. Would only be okay with short-term elective intubation if recommended. -Uncertain of long-term goals of care. Has refused placement in the past. Will see how patient does during hospitalization and continue to discuss with her and her daughter. -POLST form should be completed prior to discharge, I will offer this and complete. -Continue current medical management for now. Thank you kindly for this consult. Total time spent 70 minutes with >50% of time spent at bedside with patient discussing goals of care and code status as well as collaborating with physician during rounds.
--- NOTE | 2018-03-18 15:34 | ECHOCARDIOGRAM REPORT ---
*NOTICE TO RECEIVING REPUBLICAN AGENCY This information is strictly Confidential and protected under [place] law. [place] law prohibits you from making any further disclosure of this information unless further disclosure is expressly permitted by the written consent of the person to whom it pertains or is authorized by law. A general authorization for the release of medical or other information is not sufficient for this purpose. Hospital accepts no responsibility if the information is made available to any other person, INCLUDING THE PATIENT. Interpretation Summary * Name: CHANTEL ALEXANDRE Study Date: 03/18/2018 08:41 AM BP: 103/65 mmHg * Patient Location: .MSICU\S\E107\S\1 HR: 78 * : 1945 (M/d/yyy) Gender: Female Height: 64 in * Age: 72 yrs Ethnicity: CA Weight: 315 lb * Ordering Physician: Paulo Harkins * Referring Physician: Self, Referred * Performed By: Sandra Obrien RCS * * Reason For Study: COR PULMONALE * BSA: 2.4 m2 * -- Conclusions -- * There is mild concentric left ventricular hypertrophy. * No regional wall motion abnormalities noted. * Ejection Fraction = 60-65%. * The right ventricle is normal in size and function. * The aortic valve is not well-visualized and therefore a bicuspid aortic valve cannot be excluded. * There is no significant aortic regurgitation. * Aortic stenosis is absent. * There is mild tricuspid regurgitation. * Calculated pulmonary artery systolic pressures 36 mmHg, upper limit of normal. Procedure Details * A complete two-dimensional transthoracic echocardiogram was performed (2D, M-mode, Doppler and color flow Doppler). * The study was technically difficult. * There were technical limitations due to patient'sbody habitus * A contrast injection of Definity was performed to improve assessment of LV function. * Contrast was injected into an intravenous site in the right arm. * One vial of Definity ultrasound contrast was diluted in normal saline to a total volume of 10 ml. A total of '3' ml of solution was administered during imaging. * Lot # [id number] of Definity utilized for procedure. * Expiration date 1 FEB 04. * The attending nurse who injected the contrast agent was LESTER HEARN, RN. Left Ventricle * The left ventricle is normal in size. * There is mild concentric left ventricular hypertrophy. * Left ventricular systolic function is normal. * Ejection Fraction = 60-65%. * The left ventricular wall motion is normal. * No regional wall motion abnormalities noted. Right Ventricle * The right ventricle is normal in size and function. Atria * The left atrial size is normal. * Right atrial size is normal. * There is no evidence of atrial septal defect, but resolution does not allow assessment for a patent foramen ovale. Mitral Valve * The mitral valve is normal. * There is no mitral valve stenosis. * Significant mitral regurgitation is absent. Tricuspid Valve * The tricuspid valve is normal. * There is no tricuspid stenosis. * There is mild tricuspid regurgitation. * Calculated pulmonary artery systolic pressures 36 mmHg, upper limit of normal. Aortic Valve * The aortic valve is not well-visualized and therefore a bicuspid aortic valve cannot be excluded. * Aortic stenosis is absent. * There is no significant aortic regurgitation. Pulmonic Valve * The pulmonary valve is not well seen, but the Doppler examination is normal without significant regurgitation or stenosis. Great Vessels * The aortic root and proximal ascending aorta are normal sized. Pericardium/Pleural * There is no pericardial effusion. Great Vessels * Normal inferior vena cava diameter and respiratory variation suggests normal central venous pressure. Left Ventricular Diastolic Function * Grade 2 diastolic dysfunction is present. MMode 2D Measurements and Calculations IVSd 1.6 cm IVSs 1.8 cm LVIDd 3.9 cm LVIDs 2.2 cm LVPWd 1.5 cm LVPWs 1.8 cm IVS/LVPW 1.1 FS 42.1 % EDV(Teich) 64.6 ml ESV(Teich) 17.0 ml EF(Teich) 73.7 % EDV(cubed) 57.8 ml ESV(cubed) 11.2 ml EF(cubed) 80.6 % % IVS thick 12.8 % % LVPW thick 18.0 % LV mass(C)d 237.3 grams LV mass(C)dI 100.0 grams/m\S\2 LV mass(C)s 157.5 grams LV mass(C)sI 66.4 grams/m\S\2 SV(Teich) 47.6 ml SI(Teich) 20.1 ml/m\S\2 SV(cubed) 46.6 ml SI(cubed) 19.6 ml/m\S\2 Ao root diam 2.6 cm Ao root area 5.4 cm\S\2 ACS 1.6 cm LA dimension 4.3 cm LA/Ao 1.6 LVOT diam 2.0 cm LVOT area 3.1 cm\S\2 LVAd ap4 32.2 cm\S\2 LVLd ap4 7.2 cm EDV(MOD-sp4) 119.6 ml EDV(sp4-el) 122.5 ml LVAs ap4 17.2 cm\S\2 LVLs ap4 5.5 cm ESV(MOD-sp4) 42.4 ml ESV(sp4-el) 45.4 ml EF(MOD-sp4) 64.6 % EF(sp4-el) 62.9 % LVAd ap2 22.3 cm\S\2 LVLd ap2 6.2 cm EDV(MOD-sp2) 66.9 ml EDV(sp2-el) 68.0 ml LVAs ap2 12.3 cm\S\2 LVLs ap2 5.3 cm ESV(MOD-sp2) 24.5 ml ESV(sp2-el) 23.9 ml EF(MOD-sp2) 63.3 % EF(sp2-el) 64.9 % LVLd %diff -15.74 % EDV(MOD-bp) 95.6 ml LVLs %diff -3.73 % ESV(MOD-bp) 32.1 ml EF(MOD-bp) 66.5 % SV(MOD-sp4) 77.2 ml SI(MOD-sp4) 32.5 ml/m\S\2 SV(MOD-sp2) 42.4 ml SI(MOD-sp2) 17.9 ml/m\S\2 SV(MOD-bp) 63.5 ml SI(MOD-bp) 26.8 ml/m\S\2 SV(sp4-el) 77.0 ml SI(sp4-el) 32.5 ml/m\S\2 SV(sp2-el) 44.1 ml SI(sp2-el) 18.6 ml/m\S\2 Doppler Measurements and Calculations MV E max sylvie 148.1 cm/sec MV A max sylvie 95.5 cm/sec MV E/A 1.6 MV P1/2t max sylvie 151.2 cm/sec MV P1/2t 65.0 msec MVA(P1/2t) 3.4 cm\S\2 MV dec slope 681.6 cm/sec\S\2 MV dec time 0.20 sec PA V2 max 104.0 cm/sec PA max PG 4.3 mmHg TR max sylvie 287.9 cm/sec
[2018-03-18] MEDS: ACETAMINOPHEN 325 MG TAB PO PRN (15:59)
[2018-03-18] MEDS ORDERED: WARFARIN SOD 2.5 MG TAB PO ONE (16:00)
[2018-03-18] MEDS: NYSTATIN POWDER 15GM BTL EXT SCH (20:31)
[2018-03-19] VITALS (11 sets, daily range): BP systolic 68–132; BP diastolic 36–65; PULSE 68–92; TEMP 36.6–37.5; O2SAT 91–98
[2018-03-19] MEDS: LEVOTHYROXINE 112 MCG TAB PO SCH (06:24)
[2018-03-19 06:36] LABS: INR 2.2 (0.9-1.1)
[2018-03-19 06:44] LABS: CALCIUM 8.2 mg/dl (8.5-10.1); CREATININE 1.99 mg/dl (0.60-1.20); PHOSPHORUS 3.6 mg/dl (2.5-4.9); POTASSIUM 4.4 mmol/L (3.5-5.1)
[2018-03-19] MEDS: INSULIN ASPART 100 UNITS/ML 3 ML PEN SC SCH ×4 (07:00→21:00)
[2018-03-19] MEDS: CEFTRIAXONE SOD INJ 1000 MG in DEXTROSE 5% 50ML IV SCH (08:04)
[2018-03-19] MEDS: NYSTATIN POWDER 15GM BTL EXT SCH ×2 (08:04→21:08)
[2018-03-19] MEDS: ACETAMINOPHEN 325 MG TAB PO PRN (08:04)
[2018-03-19] MEDS: METOPROLOL TARTRATE 25 MG TAB PO SCH ×3 (08:05→21:00)
[2018-03-19] MEDS: DICLOFENAC SOD 1% GEL 100 GM TUBE EXT SCH ×4 (08:05→21:08)
[2018-03-19] MEDS: DOCUSATE SODIUM 100 MG CAP PO SCH (08:06)
[2018-03-19] MEDS: SERTRALINE HCL 50 MG TAB PO SCH (08:06)
[2018-03-19] MEDS: PANTOprazole SOD 40 MG TAB PO SCH (08:06)
[2018-03-19] MEDS: ROSUVASTATIN CALCIUM 10 MG TAB PO SCH (08:07)
[2018-03-19] MEDS: BUDESONIDE/FORMOTEROL FUMARATE 160/4.5 60 PUFFS/INHALER INH SCH ×2 (08:07→21:09)
[2018-03-19] MEDS: ASPIRIN 81 MG ECTAB PO SCH (08:08)
[2018-03-19] MEDS: FEBUXOSTAT 40 MG TAB PO SCH (08:09)
[2018-03-19] MEDS: CALCIUM 600MG + VIT D 400 IU TAB PO SCH (08:09)
[2018-03-19] MEDS: SPIRONOLACTONE 25 MG TAB PO SCH ×2 (08:09→08:20)
[2018-03-19] MEDS: TORSEMIDE 20 MG TAB PO SCH ×2 (08:10→08:19)
[2018-03-19] MEDS: ANASTROZOLE 1 MG TAB PO SCH (08:12)
[2018-03-19] MEDS: TIOTROPIUM BROMIDE 5 PUFF/90 MCG INH INH SCH (09:28)
[2018-03-19] MEDS: MAGNESIUM OXIDE 400 MG TAB PO SCH (09:29)
[2018-03-19] MEDS: PREGABALIN 150 MG CAP PO SCH ×3 (09:29→21:00)
--- NOTE | 2018-03-19 11:43 | Palliative Care Progress Note ---
Palliative Care Progress Note Date of Service Mar 19, 2018. Subjective Pt evaluation today including: conversation w/ patient, physical exam, chart review, conversation w/ railroad design consultant Patient was tired during my visit this morning but pleasant and talkative. Denies any complaints at this time. Is still quite weak. States she would be agreeable to rehab if recommended. Review of Systems Constitutional: + weakness ENT: No trouble swallowing Respiratory: + dyspnea on exertion, No cough, No wheezing Cardiac: No chest pain Abdomen: No pain, No nausea, No vomiting Female : No problem reported Psychiatric: No anxiety Objective Vital Signs Date Time Temp Pulse Resp B/P (MAP) Pulse Ox O2 Delivery O2 Flow Rate FiO2 03/19/18 09:38 94 03/19/18 07:10 36.7 79 22 95/61 (72) 92 Nasal Cannula 3.0 03/19/18 03:38 37.4 78 18 95/47 (63) 91 Nasal Cannula 3.0 03/18/18 23:59 Nasal Cannula 3.0 03/18/18 23:45 36.5 84 18 126/84 (98) 90 Nasal Cannula 3.0 03/18/18 21:00 94/58 (70) 03/18/18 19:09 37.1 78 20 81/53 (62) 93 Nasal Cannula 3.0 03/18/18 16:00 Nasal Cannula 3.0 03/18/18 14:37 36.7 90 15 91 3.0 03/18/18 14:02 120 15 104/58 (73) 91 Nasal Cannula 3.0 03/18/18 13:00 88 13 91 Nasal Cannula 3.0 03/18/18 12:01 87 16 105/70 (82) 94 Nasal Cannula 4.0 Physical Exam General Appearance: no apparent distress, + obese ENT: hearing grossly normal Neck: supple, no JVD Respiratory/Chest: no respiratory distress, no accessory muscle use, + decreased breath sounds Cardiovascular: regular rate, rhythm, no edema, + normal peripheral pulses Abdomen: normal bowel sounds, non tender, soft Neurologic/Psychiatric: normal mood/affect, oriented x 3 Laboratory Results Last 24 Hours Test 03/18/18 16:03 03/18/18 20:40 03/19/18 05:34 03/19/18 07:28 Bedside Glucose 103 mg/dl 132 mg/dl 100 mg/dl Prothrombin Time 23.0 SECONDS Prothromb Time International Ratio 2.2 Sodium Level 142 mmol/L Potassium Level 4.4 mmol/L Chloride Level 110 mmol/L Carbon Dioxide Level 26 mmol/L Anion Gap 6.0 mmol/L Blood Urea Nitrogen 50 mg/dl Creatinine 1.99 mg/dl Est Creatinine Clear Calc Drug Dose 35.9 ml/min Estimated GFR () 28.2 Estimated GFR (Non- 24.3 BUN/Creatinine Ratio 25.2 Random Glucose 91 mg/dl Calcium Level 8.2 mg/dl Phosphorus Level 3.6 mg/dl Magnesium Level 2.1 mg/dl Test 03/19/18 11:25 Bedside Glucose 120 mg/dl Assessment and Plan Problem list: Weakness/ambulatory dysfunction s/p fall Obesity Advanced COPD Hypercarbic respiratory failure Goals of care Palliative care recs: -Patient is now DNR. See previous note about that conversation. -Her goal is to get back home where she lives with her daughter, Valentine. She does state that she'd be agreeable to rehab if it is recommended. PT/OT are ordered. -POLST form would be helpful prior to discharge. I will follow along and try to complete closer to discharge when goals are more established. -Will follow peripherally for now. Total time spent 25 minutes with >50% of time spent at bedside with patient counseling/discussing goals of care as well as collaborating with nursing staff and case management to coordinate care. Continued [facility] stay due to: multiple IV medications needed Discharge planning: uncertain
[2018-03-19] MEDS ORDERED: POLYETHYLENE (MIRALAX) 17 GM PACK PO PRN (12:30)
[2018-03-19] MEDS ORDERED: POLYETHYLENE (MIRALAX) 17 GM PACK PO STA (12:36)
--- NOTE | 2018-03-19 14:49 | Progress Note ---
Subjective Date of Service: Mar 19, 2018. Subjective Pt evaluation today including: conversation w/ patient, conversation w/ family , physical exam, chart review, lab review, review of studies, conversation w/ acquisition consultant, review of inpatient medication list Mild lethargic, however awake alert and orientated, follow commands, right shoulder pain much better, better range of motion, Problem List Medical Problems: (1) Altered mental status Status: Acute (2) Chronic kidney disease (CKD) Status: Acute (3) Left leg cellulitis Status: Acute (4) Respiratory failure Status: Acute (5) Shortness of breath Status: Acute (6) Syncope Status: Acute Review of Systems Constitutional: + weakness, + fatigue, No fever, No chills, No sweats, No weight loss, No problem reported Eyes: No worsening of vision, No eye pain, No redness, No discharge, No diplopia ENT: No hearing loss, No unusual epistaxis, No nasal symptoms, No sore throat, No tinnitus, No dental problems, No trouble swallowing Respiratory: No cough, No sputum, No wheezing, No shortness of breath, No dyspnea on exertion, No dyspnea at rest, No hemoptysis Cardiac: No chest pain, No orthopnea, No PND, No edema, No claudication, No palpitations Abdomen: No pain, No nausea, No vomiting, No diarrhea, No constipation Musculoskeletal: No joint pain, No muscle pain, No swelling, No calf pain Female : No dysuria, No urinary frequency, No hematuria, No incontinence, No abnormal vaginal bleeding, No vaginal discharge Neurologic: No memory loss, No paralysis, No weakness, No numbness/tingling, No vertigo, No balance problems Psychiatric: No depression symptoms, No anhedonism, No anxiety, No insomnia, No substance abuse Heme: No abnormal bleeding/bruising, No clotting problems, No swollen lymph nodes, No night sweats Endo: No fatigue, No excessive thirst, No excessive urination Skin: No rash, No itch, No new/changing skin lesions, No color change, No bleeding Objective Vital Signs Date Time Temp Pulse Resp B/P (MAP) Pulse Ox O2 Delivery O2 Flow Rate FiO2 03/19/18 13:40 95/60 (72) 03/19/18 12:34 37.5 79 16 68/36 (47) 94 Nasal Cannula 3.0 94/59 (71) 107/57 (74) 81/18 09:38 94 03/19/18 08:00 92 Nasal Cannula 3.0 03/19/18 07:10 36.7 79 22 95/61 (72) 92 Nasal Cannula 3.0 03/19/18 03:38 37.4 78 18 95/47 (63) 91 Nasal Cannula 3.0 03/18/18 23:59 Nasal Cannula 3.0 03/18/18 23:45 36.5 84 18 126/84 (98) 90 Nasal Cannula 3.0 03/18/18 21:00 94/58 (70) 03/18/18 19:09 37.1 78 20 81/53 (62) 93 Nasal Cannula 3.0 03/18/18 16:00 Nasal Cannula 3.0 Physical Exam General Appearance: WD/WN, no apparent distress, + obese Eyes: normal inspection, PERRL, EOMI, sclerae normal ENT: normal ENT inspection, hearing grossly normal, pharynx normal Neck: supple, no adenopathy, thyroid normal, no JVD, no carotid bruits, trachea midline Respiratory/Chest: chest non-tender, normal breath sounds, no respiratory distress, no accessory muscle use, + decreased breath sounds Cardiovascular: regular rate, rhythm, no edema, no gallop, no JVD, no murmur Abdomen: normal bowel sounds, non tender, soft, no organomegaly, no pulsatile mass Extremities: normal range of motion, non-tender, normal inspection, no pedal edema, no calf tenderness, normal capillary refill, pelvis stable, + swelling ( Trace edema) Neurologic/Psychiatric: 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 as tested, no motor/sensory deficits, alert, normal mood/affect, oriented x 3 Skin: normal color, warm/dry, no rash Lymphatic: no adenopathy Laboratory Results Last 24 Hours Test 03/18/18 16:03 03/18/18 20:40 03/19/18 05:34 03/19/18 07:28 Bedside Glucose 103 mg/dl 132 mg/dl 100 mg/dl Prothrombin Time 23.0 SECONDS Prothromb Time International Ratio 2.2 Sodium Level 142 mmol/L Potassium Level 4.4 mmol/L Chloride Level 110 mmol/L Carbon Dioxide Level 26 mmol/L Anion Gap 6.0 mmol/L Blood Urea Nitrogen 50 mg/dl Creatinine 1.99 mg/dl Est Creatinine Clear Calc Drug Dose 35.9 ml/min Estimated GFR () 28.2 Estimated GFR (Non- 24.3 BUN/Creatinine Ratio 25.2 Random Glucose 91 mg/dl Calcium Level 8.2 mg/dl Phosphorus Level 3.6 mg/dl Magnesium Level 2.1 mg/dl Test 03/19/18 11:25 03/19/18 14:08 Bedside Glucose 120 mg/dl Arterial Blood pH 7.29 Arterial Blood Partial Pressure CO2 57 mmHg Arterial Blood Partial Pressure O2 83 mm/Hg Arterial Blood HCO3 27 mmol/L Arterial Blood Oxygen Saturation 94.4 % Arterial Blood Base Excess -0.6 mEq/L Arterial Blood Gas Delivery 3L Yovani Test POS Assessment and Plan 72-year-old female admitted because of right shoulder pain secondary to fall at home on 03/17/2018, was transferred to MICU because of hypercapnic respiratory failure was intubated This morning was extubated, Acute hypercapnic respiratory failure, inbubated and extubated on March 18 2018 hx of COPD chronic respiratory failure. Obstructive sleep apnea, has CPAP machine at home Patient report has CPAP machine at home, was follow-up with geologic technician in [facility] [place] ABG shows CO2 retention and hypercapnic, associated with lethargic mild, possible metabolic encephalopathy, was started BiPAP, followed by closed atrial fibrillation, on Coumadin INR 2.7 improved to 2.2 today we will start Coumadin 4 mg p.o. daily and follow-up PT/INR Possible acute kidney failure creatinine with stage III chronic kidney disease CR 2 upon admission, today's creatinine is 1.9, will continue follow-up Morbid obesity with BMI 54.1 Right shoulder pain after fall, today her range of motion is much better, will continue current care coronary artery disease, depression, type 2 diabetes, gout, hyperlipidemia hypothyroidism, obstructive secondary hyperparathyroidism and vitamin D deficiency. 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
[2018-03-19] MEDS: WARFARIN SOD 4 MG TAB PO SCH (21:08)
[2018-03-20] VITALS (8 sets, daily range): BP systolic 106–127; BP diastolic 58–77; PULSE 70–97; TEMP 36.6–36.8; O2SAT 91–95
[2018-03-20] MEDS: LEVOTHYROXINE 112 MCG TAB PO SCH (06:19)
[2018-03-20 06:22] LABS: INR 1.6 (0.9-1.1)
[2018-03-20 06:42] LABS: HEMATOCRIT 37.5 % (37-47); HEMOGLOBIN 11.4 g/dL (12.0-16.0); MEAN CELL VOLUME 69.2 fL (80-100); MEAN CORPUSCULAR HGB CONC 30.4 g/dl (32-36); PLATELET COUNT 147 K/uL (130-400); RED CELL DISTRIBUTION WIDTH CV 22.8 % (11.5-14.5); RED CELL DISTRIBUTION WIDTH SD 56.9 fL (36.4-46.3); WHITE BLOOD COUNT 7.87 K/uL (4.8-10.8)
[2018-03-20 06:44] LABS: BASO % 0.4 %; BASO ABS # 0.03 K/uL (0-0.2); EOS % 1.5 %; EOS ABS # 0.12 K/uL (0-0.5); IG# 0.04 K/uL (0.00-0.02); LYMPH ABS # 0.63 K/uL (1.2-3.4); MONO % 11.2 %; MONO ABS # 0.88 K/uL (0.11-0.59); NEUT % 78.4 %; NEUT ABS # 6.17 K/uL (1.4-6.5)
[2018-03-20 06:56] LABS: CALCIUM 8.3 mg/dl (8.5-10.1); CREATININE 1.69 mg/dl (0.60-1.20); PHOSPHORUS 3.5 mg/dl (2.5-4.9); POTASSIUM 4.2 mmol/L (3.5-5.1)
[2018-03-20] MEDS: INSULIN ASPART 100 UNITS/ML 3 ML PEN SC SCH ×4 (07:00→20:48)
[2018-03-20] MEDS: CALCIUM 600MG + VIT D 400 IU TAB PO SCH (08:11)
[2018-03-20] MEDS: SPIRONOLACTONE 25 MG TAB PO SCH (08:11)
[2018-03-20] MEDS: DOCUSATE SODIUM 100 MG CAP PO SCH (08:11)
[2018-03-20] MEDS: ASPIRIN 81 MG ECTAB PO SCH (08:11)
[2018-03-20] MEDS: FEBUXOSTAT 40 MG TAB PO SCH (08:11)
[2018-03-20] MEDS: ROSUVASTATIN CALCIUM 10 MG TAB PO SCH (08:13)
[2018-03-20] MEDS: TORSEMIDE 20 MG TAB PO SCH ×2 (08:13→20:40)
[2018-03-20] MEDS: MAGNESIUM OXIDE 400 MG TAB PO SCH (08:13)
[2018-03-20] MEDS: METOPROLOL TARTRATE 25 MG TAB PO SCH ×3 (08:13→20:40)
[2018-03-20] MEDS: CEFTRIAXONE SOD INJ 1000 MG in DEXTROSE 5% 50ML IV SCH (08:14)
[2018-03-20] MEDS: SERTRALINE HCL 50 MG TAB PO SCH (08:14)
[2018-03-20] MEDS: PANTOprazole SOD 40 MG TAB PO SCH (08:14)
[2018-03-20] MEDS: TIOTROPIUM BROMIDE 5 PUFF/90 MCG INH INH SCH (08:15)
[2018-03-20] MEDS: BUDESONIDE/FORMOTEROL FUMARATE 160/4.5 60 PUFFS/INHALER INH SCH ×2 (08:15→20:39)
[2018-03-20] MEDS: NYSTATIN POWDER 15GM BTL EXT SCH ×2 (08:16→20:39)
[2018-03-20] MEDS: DICLOFENAC SOD 1% GEL 100 GM TUBE EXT SCH ×4 (08:16→20:39)
[2018-03-20] MEDS: PREGABALIN 150 MG CAP PO SCH ×3 (08:31→20:45)
[2018-03-20] MEDS: ANASTROZOLE 1 MG TAB PO SCH (08:31)
[2018-03-20] MEDS: METHYLPREDNISOLONE IV 80 MG in SYRINGE 0 ML IV SCH ×3 (08:33→23:33)
--- NOTE | 2018-03-20 12:43 | Progress Note ---
Subjective Date of Service: Mar 20, 2018. Subjective Pt evaluation today including: conversation w/ patient, conversation w/ family , physical exam, chart review, lab review, review of studies, conversation w/ consultant [employer] and [employer]. vice president [employer] (ex ), review of inpatient medication list Mentally look normal lethargic today she has been using BiPAP, now is off BiPAP machine and eating lunch, she is smiling and conversational, no complaint, Problem List Medical Problems: (1) Altered mental status Status: Acute (2) Chronic kidney disease (CKD) Status: Acute (3) Left leg cellulitis Status: Acute (4) Respiratory failure Status: Acute (5) Shortness of breath Status: Acute (6) Syncope Status: Acute Review of Systems Constitutional: + weakness, + fatigue, No fever, No chills, No sweats, No weight loss, No problem reported Eyes: No worsening of vision, No eye pain, No redness, No discharge, No diplopia ENT: No hearing loss, No unusual epistaxis, No nasal symptoms, No sore throat, No tinnitus, No dental problems, No trouble swallowing Respiratory: No cough, No sputum, No wheezing, No shortness of breath, No dyspnea on exertion, No dyspnea at rest, No hemoptysis Cardiac: No chest pain, No orthopnea, No PND, No edema, No claudication, No palpitations Abdomen: No pain, No nausea, No vomiting, No diarrhea, No constipation Musculoskeletal: No joint pain, No muscle pain, No swelling, No calf pain Female : No dysuria, No urinary frequency, No hematuria, No incontinence, No abnormal vaginal bleeding, No vaginal discharge Neurologic: No memory loss, No paralysis, No weakness, No numbness/tingling, No vertigo, No balance problems Psychiatric: No depression symptoms, No anhedonism, No anxiety, No insomnia, No substance abuse Heme: No abnormal bleeding/bruising, No clotting problems, No swollen lymph nodes, No night sweats Endo: No fatigue, No excessive thirst, No excessive urination Skin: No rash, No itch, No new/changing skin lesions, No color change, No bleeding Objective Vital Signs Date Time Temp Pulse Resp B/P (MAP) Pulse Ox O2 Delivery O2 Flow Rate FiO2 03/20/18 11:50 36.7 80 20 113/77 (89) 94 BiPAP 03/20/18 08:30 Nasal Cannula 4.0 03/20/18 06:56 36.8 97 17 114/58 (76) 95 Nasal Cannula 4.0 03/20/18 04:25 36.8 96 16 106/67 (80) 91 BiPAP 03/20/18 01:47 96 95 40 03/19/18 23:59 BiPAP 40 03/19/18 23:25 36.6 92 18 103/65 (78) 95 BiPAP 40 03/19/18 19:40 36.6 78 14 98/55 (69) 98 BiPAP 03/19/18 18:57 77 94 40 03/19/18 16:00 CPAP 03/19/18 15:40 68 94 40 03/19/18 15:30 36.9 77 19 132/64 (86) 94 Nasal Cannula 3.0 03/19/18 13:40 95/60 (72) Physical Exam General Appearance: WD/WN, no apparent distress, + obese Eyes: normal inspection, PERRL, EOMI, sclerae normal ENT: normal ENT inspection, hearing grossly normal, pharynx normal Neck: supple, no adenopathy, thyroid normal, no JVD, no carotid bruits, trachea midline Respiratory/Chest: chest non-tender, normal breath sounds, no respiratory distress, no accessory muscle use, + decreased breath sounds Cardiovascular: regular rate, rhythm, no edema, no gallop, no JVD, no murmur Abdomen: normal bowel sounds, non tender, soft, no organomegaly, no pulsatile mass Extremities: non-tender, normal inspection, no pedal edema, no calf tenderness , normal capillary refill, pelvis stable, + swelling (2-3+ this morning,), + pertinent finding (Right shoulder pain is improving able to use right hand eating lunch) Neurologic/Psychiatric: 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 II-XII nml as tested, no motor/sensory deficits, alert, normal mood/affect, oriented x 3 Skin: normal color, warm/dry, no rash Lymphatic: no adenopathy Laboratory Results Last 24 Hours Test 03/19/18 14:08 03/19/18 16:33 03/19/18 20:21 03/19/18 20:23 Arterial Blood pH 7.29 7.30 Arterial Blood Partial Pressure CO2 57 mmHg 55 mmHg Arterial Blood Partial Pressure O2 83 mm/Hg 95 mm/Hg Arterial Blood HCO3 27 mmol/L 26 mmol/L Arterial Blood Oxygen Saturation 94.4 % 96.3 % Arterial Blood Base Excess -0.6 mEq/L -1.0 mEq/L Arterial Blood Gas Delivery 3L 40% Yovani Test POS POS Bedside Glucose 101 mg/dl 101 mg/dl Test 03/20/18 05:54 03/20/18 06:00 03/20/18 07:27 03/20/18 11:13 White Blood Count 7.87 K/uL Red Blood Count 5.42 M/uL Hemoglobin 11.4 g/dL Hematocrit 37.5 % Mean Corpuscular Volume 69.2 fL Mean Corpuscular Hemoglobin 21.0 pg Mean Corpuscular Hemoglobin Concent 30.4 g/dl Platelet Count 147 K/uL Neutrophils (%) (Auto) 78.4 % Lymphocytes (%) (Auto) 8.0 % Monocytes (%) (Auto) 11.2 % Eosinophils (%) (Auto) 1.5 % Basophils (%) (Auto) 0.4 % Neutrophils # (Auto) 6.17 K/uL Lymphocytes # (Auto) 0.63 K/uL Monocytes # (Auto) 0.88 K/uL Eosinophils # (Auto) 0.12 K/uL Basophils # (Auto) 0.03 K/uL RDW Standard Deviation 56.9 fL RDW Coefficient of Variation 22.8 % Immature Granulocyte % (Auto) 0.5 % Immature Granulocyte # (Auto) 0.04 K/uL Platelet Estimate DECREASED Anisocytosis PRESENT Microcytosis PRESENT Rouleau 1+ Prothrombin Time 16.8 SECONDS Prothromb Time International Ratio 1.6 Sodium Level 142 mmol/L Potassium Level 4.2 mmol/L Chloride Level 109 mmol/L Carbon Dioxide Level 27 mmol/L Anion Gap 6.0 mmol/L Blood Urea Nitrogen 46 mg/dl Creatinine 1.69 mg/dl Est Creatinine Clear Calc Drug Dose 42.0 ml/min Estimated GFR () 34.3 Estimated GFR (Non- 29.6 BUN/Creatinine Ratio 27.3 Random Glucose 87 mg/dl Calcium Level 8.3 mg/dl Phosphorus Level 3.5 mg/dl Magnesium Level 2.1 mg/dl Arterial Blood pH 7.32 Arterial Blood Partial Pressure CO2 56 mmHg Arterial Blood Partial Pressure O2 136 mm/Hg Arterial Blood HCO3 28 mmol/L Arterial Blood Oxygen Saturation 90.0 % Arterial Blood Base Excess 1.9 mEq/L Arterial Blood Gas Delivery 40% Yovani Test POS Bedside Glucose 97 mg/dl 154 mg/dl Assessment and Plan 72-year-old female admitted because of right shoulder pain secondary to fall at home on 03/17/2018, was transferred to MICU because of hypercapnic respiratory failure was intubated This morning was extubated, Acute hypercapnic respiratory failure, inbubated and extubated on March 18 2018 hx of COPD chronic respiratory failure. Obstructive sleep apnea, has CPAP machine at home Patient report has CPAP machine at home, was follow-up with spiritual minister in [facility] On March 19, 2018 ABG shows CO2 retention and hypercapnic, associated with lethargic mild, possible metabolic encephalopathy, has been on BiPAP, patient is improving on BiPAP Start Solu-Medrol for the treatment of possible COPD exacerbation, have double dose of torsemide diuretic for a possible fluid retention, recent echo does not show systolic or diastolic CHF atrial fibrillation, on Coumadin yesterday. Coumadin 4 mg p.o. daily , INR is 1.6 today, continue current Coumadin dose and follow-up PT/INR Possible acute kidney failure creatinine with stage III chronic kidney disease cr 2 upon admission, creatinine continues stable improving, Family request to have patient's primary nephrology involving her care, I agreed and has requested consultation Morbid obesity with BMI 54.1 Right shoulder pain after fall, stable improving coronary artery disease, depression, type 2 diabetes, will watch blood glucose closely when patient is on Solu-Medrol gout, hyperlipidemia hypothyroidism, obstructive secondary hyperparathyroidism and vitamin D deficiency. Above condition stable continue current care Continue nasal cannula oxygen, start BiPAP approximately 4 hours on 4 hours off , or l off when eating meat Frequent taper off BiPAP machine, PT OT, possible need rehab patient and family agree Discussed with patient about her condition and care plan, answered all her questions Palliative care and pediatric oncology nurse patient is do not resuscitation DVT prophylaxis covered, community placement worker for discharge planning, patient and family agreed to go to senior care or rehab Continued [facility] stay due to: multiple IV medications needed Discharge planning: uncertain
[2018-03-20] MEDS: WARFARIN SOD 4 MG TAB PO SCH (15:43)
--- NOTE | 2018-03-20 16:53 | Nephrology Consultation ---
Nephrology Consultation Date & Providers Date of Consultation: Mar 20, 2018. Primary Care Provider: Esequiel Bran D.O. Referring Provider: Reason for Consultation Evaluation and management for acute kidney injury with history of chronic kidney disease. History of Present Illness Edel Rojas Is a 72-year-old female with past medical history significant for stage 3B/4 chronic kidney disease, hypertension, diabetes admitted to the hospital after a fall at home. Nephrology was requested to manage recent acute kidney with history of chronic kidney disease. Electronic medical records including labs and imaging are reviewed in detail during patient's visit. Edel presented to the hospital 3 days ago after she had a fall at home and her daughter was unable to get her the floor and she was on the floor for several hours before she was brought to ED. Fall was thought to be mechanical fall and she did have any fracture or any significant injury after the 4. Home she normally uses wheelchair and she had history of several episodes of from wheelchair. She was given narcotic analgesic with worsening respiratory status with hypercarbic respiratory failure requiring intubation and ICU admission. Currently she is extubated she has been on nasal oxygen and transfer out of ICU. She has stage IIIB chronic kidney disease secondary to HTN, DM and microvascular dz, baseline creatinine has been quite variable from 1.6-2.0 with recurrent episode of acute kidney injury, follows with Dr. Dawson.. During hospital admission few months ago she developed acute kidney injury which eventually improved and creatinine was at baseline. Admission creatinine was 2.0 which slowly improved over last few days and creatinine was 1.6 this am , electrolyte acceptable. She has been non-oliguric. Blood pressure has been well controlled. Has low grade proteinuria. She was also found to urinary tract infection, currently on ceftriaxone. Allergies Coded Allergies: Melatonin (Verified Allergy, Severe, RASH, 03/17/18) Penicillins (Verified Allergy, Unknown, UNLNOWN, 03/17/18) Inpatient Medications Current Inpatient Medications Medications (Trade) Dose Ordered Sig/Isidoro Route Start Time Stop Time Status Last Admin Dose Admin Ioversol (Optiray 320) 100 ml UD PRN IV 03/17/18 12:45 03/21/18 12:44 Acetaminophen (Tylenol Tab) 650 mg Q4H PRN PO 03/17/18 15:00 04/16/18 14:59 03/19/18 08:04 650 MG Al Hydrox/Mg Hydrox/Simethicone (Maalox Max Susp) 15 ml Q4H PRN PO 03/17/18 15:00 04/16/18 14:59 Magnesium Hydroxide (Milk Of Magnesia Susp) 30 ml Q12H PRN PO 03/17/18 15:00 04/16/18 14:59 Ondansetron HCl (Zofran Inj) 4 mg Q6H PRN IV 03/17/18 15:00 04/16/18 14:59 Polyethylene (Miralax Powder Packet) 17 gm DAILY PRN PO 03/17/18 15:00 04/16/18 14:59 Diclofenac Sodium (Voltaren 1% Top Gel) 1 appln QID EXT 03/17/18 17:00 04/16/18 16:59 03/20/18 08:16 1 APPLN Oxycodone HCl (Roxicodone Immediate Rel Tab) 2.5 mg Q4H PRN PO 03/17/18 15:00 03/31/18 14:59 Anastrozole (Arimidex Tab) 1 mg DAILY PO 03/18/18 09:00 04/17/18 08:59 03/20/18 08:31 1 MG Aspirin (Ecotrin Tab) 81 mg QAM PO 03/18/18 09:00 04/17/18 08:59 03/20/18 08:11 81 MG Calcium/Vitamin D (Caltrate Plus Tab) 1 tab DAILY PO 03/18/18 09:00 04/17/18 08:59 03/20/18 08:11 1 TAB Docusate Sodium (coLACE CAP) 100 mg DAILY PO 03/18/18 09:00 04/17/18 08:59 03/20/18 08:11 100 MG Ergocalciferol (Vitamin D Cap) 50,000 interunit Mo@0900 PO 03/24/18 09:00 04/23/18 08:59 Levothyroxine Sodium (Synthroid Tab) 112 mcg DAILYBB PO 03/18/18 06:00 04/17/18 06:59 03/20/18 06:19 112 MCG Magnesium Oxide (Mag-Ox Tab) 400 mg DAILY PO 03/18/18 09:00 04/17/18 08:59 03/20/18 08:13 400 MG Metoprolol Tartrate (Lopressor Tab) 25 mg TID PO 03/17/18 21:00 04/16/18 20:59 03/20/18 14:28 25 MG Pantoprazole Sodium (Protonix Tab) 40 mg DAILY PO 03/18/18 09:00 04/17/18 08:59 03/20/18 08:14 40 MG Potassium Chloride (Klor-Con Tab) 20 meq BID PO 03/17/18 21:00 04/16/18 20:59 Future Hold Pregabalin (Lyrica Cap) 150 mg TID PO 03/17/18 21:00 04/16/18 20:59 03/20/18 14:27 150 MG Rosuvastatin Calcium (Crestor Tab) 10 mg DAILY PO 03/18/18 09:00 04/17/18 08:59 03/20/18 08:13 10 MG Sertraline HCl (Zoloft Tab) 150 mg DAILY PO 03/18/18 09:00 04/17/18 08:59 03/20/18 08:14 150 MG Spironolactone (Aldactone Tab) 25 mg DAILY PO 03/18/18 09:00 04/17/18 08:59 03/20/18 08:11 25 MG Warfarin Sodium (Coumadin Tab) 8 mg DAILY@1600 PO 03/17/18 18:00 04/16/18 17:59 Future Hold Febuxostat (Uloric) 40 mg DAILY PO 03/18/18 09:00 04/17/18 08:59 03/20/18 08:11 40 MG Miscellaneous Information (Order Awaiting Action) 1 ea QS N/A 03/18/18 00:00 04/17/18 00:00 Tiotropium [place] (Spiriva Handihaler Inhaler) 1 puff QAM INH 03/18/18 09:00 04/17/18 08:59 03/20/18 08:15 1 PUFF Budesonide/ Formoterol Fumarate (Symbicort 160/ 4.5 Inh) 2 puffs BID INH 03/17/18 21:00 04/16/18 20:59 03/20/18 08:15 2 PUFFS Insulin Aspart (novoLOG ASPART) SLIDING SCALE G... ACHS SC 03/17/18 17:45 04/16/18 17:44 Glucose (Glucose 40% Gel) 15-30 GRAMS 15 GRAMS... UD PRN PO 03/17/18 17:30 04/16/18 17:29 Glucose (Glucose Chew Tab) 4-8 Tablets 4 Tabl... UD PRN PO 03/17/18 17:30 04/16/18 17:29 Dextrose (Dextrose 50% 50ML Syringe) 25-50ML 25ML FOR ... UD PRN IV 03/17/18 17:30 04/16/18 17:29 Glucagon (Glucagon Inj) 1 mg UD PRN IM 03/17/18 17:30 04/16/18 17:29 Carbohydrates (Carbohydrates For Hypoglycemia) 15-30 GRAMS 15 grams if BSG 54-69... UD PRN PO 03/17/18 17:30 04/16/18 17:29 Fentanyl Citrate (Fentanyl Inj) 50 mcg Q2HWA PRN IV 03/17/18 22:15 03/31/18 22:14 Ceftriaxone Sodium 1 gm/ Dextrose 50 ml @ 100 mls/hr DAILY@0900 IV 03/18/18 10:00 03/22/18 09:29 03/20/18 08:14 100 MLS/HR Albuterol/ Ipratropium (Duoneb) 3 ml Q6R PRN INH 03/18/18 14:00 04/17/18 13:59 Nystatin (Mycostatin Powder) 1 appln Q12 EXT 03/18/18 21:00 04/17/18 20:59 03/20/18 08:16 1 APPLN Warfarin Sodium (Coumadin Tab) 4 mg DAILY@1600 PO 03/19/18 16:00 04/18/18 15:59 03/19/18 21:08 4 MG Methylprednisolone Sodium Succinate 80 mg/Syringe 1.28 ml @ 1.5 mls/min Q8H IV 03/20/18 08:00 04/19/18 07:59 03/20/18 08:33 1.5 MLS/MIN Torsemide (Demadex Tab) 20 mg BID PO 03/20/18 09:00 04/16/18 20:59 03/20/18 08:13 20 MG Family History Patient reports no known family medical history. Social History Smoking Status: Heavy Tobacco Smoker Marital Status: Occupation: retired Review of Systems A complete review of systems was performed. Pertinent positives are noted above. All other systems are negative. Physical Exam Date Time Temp Pulse Resp B/P (MAP) Pulse Ox O2 Delivery O2 Flow Rate FiO2 03/20/18 11:50 36.7 80 20 113/77 (89) 94 BiPAP 03/20/18 08:30 Nasal Cannula 4.0 03/20/18 06:56 36.8 97 17 114/58 (76) 95 Nasal Cannula 4.0 03/20/18 04:25 36.8 96 16 106/67 (80) 91 BiPAP 03/20/18 01:47 96 95 40 03/19/18 23:59 BiPAP 40 03/19/18 23:25 36.6 92 18 103/65 (78) 95 BiPAP 40 03/19/18 19:40 36.6 78 14 98/55 (69) 98 BiPAP 03/19/18 18:57 77 94 40 03/19/18 16:00 CPAP 03/19/18 15:40 68 94 40 03/19/18 15:30 36.9 77 19 132/64 (86) 94 Nasal Cannula 3.0 GENERAL: Elderly female, AAA x 3, pleasant, healthy-appearing, not in any distress. HEENT: Atraumatic, normocephalic. NECK: Supple, no JVD, no carotid bruit appreciated. ENT: No sinus tenderness MOUTH and THROAT: Moist oral mucosa, no oral ulcer or pharyngeal erythema RESPIRATORY: Normal breathing efforts, no accessory muscle use, clear to auscultation bilaterally, no wheezes or rales. CARDIOVASCULAR: S1, S2 normal, rate rhythm regular. ABDOMEN: Soft, nontender, positive bowel sound. MUSCULOSKELETAL: No CVA tenderness. No joint swelling, erythema or tenderness. Normal range of motion. SKIN: No skin rash EXTREMITY: trace b/l lower extremity edema NEURO: No gross focal neurological deficit, speech fluent. PSYCHIATRY: Normal mood and judgment Laboratory Results Last 24 Hours Test 03/19/18 16:33 03/19/18 20:21 03/19/18 20:23 03/20/18 05:54 Bedside Glucose 101 mg/dl 101 mg/dl Arterial Blood pH 7.30 Arterial Blood Partial Pressure CO2 55 mmHg Arterial Blood Partial Pressure O2 95 mm/Hg Arterial Blood HCO3 26 mmol/L Arterial Blood Oxygen Saturation 96.3 % Arterial Blood Base Excess -1.0 mEq/L Arterial Blood Gas Delivery 40% Yovani Test POS White Blood Count 7.87 K/uL Red Blood Count 5.42 M/uL Hemoglobin 11.4 g/dL Hematocrit 37.5 % Mean Corpuscular Volume 69.2 fL Mean Corpuscular Hemoglobin 21.0 pg Mean Corpuscular Hemoglobin Concent 30.4 g/dl Platelet Count 147 K/uL Neutrophils (%) (Auto) 78.4 % Lymphocytes (%) (Auto) 8.0 % Monocytes (%) (Auto) 11.2 % Eosinophils (%) (Auto) 1.5 % Basophils (%) (Auto) 0.4 % Neutrophils # (Auto) 6.17 K/uL Lymphocytes # (Auto) 0.63 K/uL Monocytes # (Auto) 0.88 K/uL Eosinophils # (Auto) 0.12 K/uL Basophils # (Auto) 0.03 K/uL RDW Standard Deviation 56.9 fL RDW Coefficient of Variation 22.8 % Immature Granulocyte % (Auto) 0.5 % Immature Granulocyte # (Auto) 0.04 K/uL Platelet Estimate DECREASED Anisocytosis PRESENT Microcytosis PRESENT Rouleau 1+ Prothrombin Time 16.8 SECONDS Prothromb Time International Ratio 1.6 Sodium Level 142 mmol/L Potassium Level 4.2 mmol/L Chloride Level 109 mmol/L Carbon Dioxide Level 27 mmol/L Anion Gap 6.0 mmol/L Blood Urea Nitrogen 46 mg/dl Creatinine 1.69 mg/dl Est Creatinine Clear Calc Drug Dose 42.0 ml/min Estimated GFR () 34.3 Estimated GFR (Non- 29.6 BUN/Creatinine Ratio 27.3 Random Glucose 87 mg/dl Calcium Level 8.3 mg/dl Phosphorus Level 3.5 mg/dl Magnesium Level 2.1 mg/dl Test 03/20/18 06:00 03/20/18 07:27 03/20/18 11:13 Arterial Blood pH 7.32 Arterial Blood Partial Pressure CO2 56 mmHg Arterial Blood Partial Pressure O2 136 mm/Hg Arterial Blood HCO3 28 mmol/L Arterial Blood Oxygen Saturation 90.0 % Arterial Blood Base Excess 1.9 mEq/L Arterial Blood Gas Delivery 40% Yovani Test POS Bedside Glucose 97 mg/dl 154 mg/dl Impression (1) Acute kidney injury (2) Chronic kidney disease (CKD) (3) Respiratory failure (4) Foot fracture, right 72 year female with baseline ambulatory dysfunction, uses wheelchair mostly for ambulation with history of recurrent fall at, admitted to the hospital after another episode of fall at home. She developed acute respiratory failure with narcotic analgesic you, required intubation ICA admission currently transferred out of ICU doing well with nasal cannula oxygen. Has stage IIIB chronic kidney disease with variable creatinine form 1.5-1.7, on admission found to have acute kidney injury creatinine was 2.0 which slowly improved over last few days and creatinine was 1.6 this morning. She has been non-oliguric. Electrolyte acceptable. Blood pressure well controlled. Recommendations --Renal function at baseline, although her renal function variable she usually runs creatinine around 1.6-2.0 --avoid nephrotoxic medications --avoid IV fluid --encourage adequate p.o. intake --ok to continue on Torsemide and spironolactone --no other immediate recommendation at this point, suggest monitoring renal function daily while in hospital. Explained to pt who verbalized understanding. Will sign off and please contact if any further assistance needed. She will see Dr. Dawson in office for f/u as currently schedule Thank you for allowing me to participate in your patient's care. It was a pleasure to see Edel
[2018-03-21] VITALS (9 sets, daily range): BP systolic 116–136; BP diastolic 69–83; PULSE 61–89; TEMP 36.6–37.1; O2SAT 91–94
[2018-03-21] MEDS: LEVOTHYROXINE 112 MCG TAB PO SCH (05:52)
[2018-03-21 06:07] LABS: MEAN CORPUSCULAR HGB CONC 31.2 g/dl (32-36)
[2018-03-21 06:10] LABS: HEMATOCRIT 38.8 % (37-47); HEMOGLOBIN 12.1 g/dL (12.0-16.0); MEAN CELL VOLUME 68.7 fL (80-100); MEAN CORPUSCULAR HEMOGLOBIN 21.4 pg (25-34); WHITE BLOOD COUNT 7.67 K/uL (4.8-10.8)
[2018-03-21 06:14] LABS: INR 1.6 (0.9-1.1)
[2018-03-21 06:33] LABS: IG# 0.03 K/uL (0.00-0.02); LYMPH % 5.3 %; LYMPH ABS # 0.41 K/uL (1.2-3.4); MONO % 1.8 %; MONO ABS # 0.14 K/uL (0.11-0.59); NEUT % 92.5 %; NEUT ABS # 7.09 K/uL (1.4-6.5); PLATELET COUNT 142 K/uL (130-400)
[2018-03-21 06:45] LABS: CALCIUM 8.7 mg/dl (8.5-10.1); CREATININE 1.81 mg/dl (0.60-1.20); PHOSPHORUS 2.1 mg/dl (2.5-4.9); POTASSIUM 3.8 mmol/L (3.5-5.1)
[2018-03-21] MEDS: DOCUSATE SODIUM 100 MG CAP PO SCH (08:32)
[2018-03-21] MEDS: METOPROLOL TARTRATE 25 MG TAB PO SCH ×3 (08:32→21:42)
[2018-03-21] MEDS: PANTOprazole SOD 40 MG TAB PO SCH (08:32)
[2018-03-21] MEDS: SERTRALINE HCL 50 MG TAB PO SCH (08:32)
[2018-03-21] MEDS: CEFTRIAXONE SOD INJ 1000 MG in DEXTROSE 5% 50ML IV SCH (08:32)
[2018-03-21] MEDS: FEBUXOSTAT 40 MG TAB PO SCH (08:34)
[2018-03-21] MEDS: MAGNESIUM OXIDE 400 MG TAB PO SCH (08:34)
[2018-03-21] MEDS: ASPIRIN 81 MG ECTAB PO SCH (08:35)
[2018-03-21] MEDS: PREGABALIN 150 MG CAP PO SCH ×3 (08:35→21:59)
[2018-03-21] MEDS: TORSEMIDE 20 MG TAB PO SCH ×2 (08:36→21:41)
[2018-03-21] MEDS: ROSUVASTATIN CALCIUM 10 MG TAB PO SCH (08:36)
[2018-03-21] MEDS: METHYLPREDNISOLONE IV 80 MG in SYRINGE 0 ML IV SCH ×3 (08:38→23:51)
[2018-03-21] MEDS: SPIRONOLACTONE 25 MG TAB PO SCH (08:38)
[2018-03-21] MEDS: DICLOFENAC SOD 1% GEL 100 GM TUBE EXT SCH ×4 (08:39→21:39)
[2018-03-21] MEDS: NYSTATIN POWDER 15GM BTL EXT SCH ×2 (08:39→21:39)
[2018-03-21] MEDS: BUDESONIDE/FORMOTEROL FUMARATE 160/4.5 60 PUFFS/INHALER INH SCH ×2 (08:40→21:40)
[2018-03-21] MEDS: ANASTROZOLE 1 MG TAB PO SCH (08:43)
[2018-03-21] MEDS: CALCIUM 600MG + VIT D 400 IU TAB PO SCH (08:47)
[2018-03-21] MEDS: INSULIN ASPART 100 UNITS/ML 3 ML PEN SC SCH ×4 (08:55→21:59)
[2018-03-21] MEDS: TIOTROPIUM BROMIDE 5 PUFF/90 MCG INH INH SCH (09:25)
[2018-03-21] MEDS: CEPHALEXIN SUSP 250 MG/5 ML UDP PO SCH ×3 (13:18→22:23)
--- NOTE | 2018-03-21 15:50 | Progress Note ---
Subjective Date of Service: Mar 21, 2018. Subjective Pt evaluation today including: conversation w/ patient, conversation w/ family , physical exam, chart review, lab review, review of studies, conversation w/ customer sales consultant, review of inpatient medication list Voiding: gabriel catheter in place Off BiPAP, pleasant conversational, normal combination, Problem List Medical Problems: (1) Altered mental status Status: Acute (2) Chronic kidney disease (CKD) Status: Acute (3) Left leg cellulitis Status: Acute (4) Respiratory failure Status: Acute (5) Shortness of breath Status: Acute (6) Syncope Status: Acute Review of Systems Constitutional: + weakness, + fatigue, No fever, No chills, No sweats, No weight loss, No problem reported Eyes: No worsening of vision, No eye pain, No redness, No discharge, No diplopia ENT: No hearing loss, No unusual epistaxis, No nasal symptoms, No sore throat, No tinnitus, No dental problems, No trouble swallowing Respiratory: + shortness of breath, No cough, No sputum, No wheezing, No dyspnea on exertion, No dyspnea at rest, No hemoptysis Cardiac: + edema, No chest pain, No orthopnea, No PND, No claudication, No palpitations Abdomen: No pain, No nausea, No vomiting, No diarrhea, No constipation Musculoskeletal: No joint pain, No muscle pain, No swelling, No calf pain Female : + problem reported (Gabriel catheter in place,), No dysuria, No urinary frequency, No hematuria, No incontinence, No abnormal vaginal bleeding, No vaginal discharge Neurologic: No memory loss, No paralysis, No weakness, No numbness/tingling, No vertigo, No balance problems Psychiatric: No depression symptoms, No anhedonism, No anxiety, No insomnia, No substance abuse Heme: No abnormal bleeding/bruising, No clotting problems, No swollen lymph nodes, No night sweats Endo: No fatigue, No excessive thirst, No excessive urination Skin: No rash, No itch, No new/changing skin lesions, No color change, No bleeding Objective Vital Signs Date Time Temp Pulse Resp B/P (MAP) Pulse Ox O2 Delivery O2 Flow Rate FiO2 03/21/18 15:34 36.7 86 20 131/83 (99) 93 03/21/18 11:24 37.1 80 20 136/75 (95) 91 6.0 03/21/18 09:00 92 Room Air 6.0 03/21/18 07:37 37.1 81 20 116/74 (88) 92 Room Air 03/21/18 04:00 36.6 66 20 133/69 (90) 94 BiPAP 03/21/18 02:34 61 94 40 03/21/18 00:00 Nasal Cannula 4.0 BiPAP 03/20/18 23:46 70 93 40 03/20/18 22:30 79 93 40 03/20/18 19:13 36.6 83 18 127/77 (94) 93 BiPAP 03/20/18 16:00 BiPAP Physical Exam General Appearance: WD/WN, no apparent distress, + obese Eyes: normal inspection, PERRL, EOMI, sclerae normal ENT: normal ENT inspection, hearing grossly normal, pharynx normal Neck: supple, no adenopathy, thyroid normal, no JVD, no carotid bruits, trachea midline Respiratory/Chest: chest non-tender, normal breath sounds, no respiratory distress, no accessory muscle use, + decreased breath sounds Cardiovascular: regular rate, rhythm, no gallop, no JVD, no murmur, + pertinent finding (Bilateral lower extremity edema is better, about 2+ edema in the) Abdomen: normal bowel sounds, non tender, soft, no organomegaly, no pulsatile mass Extremities: normal range of motion, non-tender, normal inspection, no pedal edema, no calf tenderness, normal capillary refill, pelvis stable, + swelling Neurologic/Psychiatric: recovery specialist II-XII nml as tested, no motor/sensory deficits, alert, normal mood/affect, oriented x 3 Skin: normal color, warm/dry, no rash Lymphatic: no adenopathy Laboratory Results Last 24 Hours Test 03/20/18 16:24 03/20/18 20:32 03/21/18 05:36 03/21/18 07:33 Bedside Glucose 255 mg/dl 214 mg/dl 180 mg/dl White Blood Count 7.67 K/uL Red Blood Count 5.65 M/uL Hemoglobin 12.1 g/dL Hematocrit 38.8 % Mean Corpuscular Volume 68.7 fL Mean Corpuscular Hemoglobin 21.4 pg Mean Corpuscular Hemoglobin Concent 31.2 g/dl Platelet Count 142 K/uL Neutrophils (%) (Auto) 92.5 % Lymphocytes (%) (Auto) 5.3 % Monocytes (%) (Auto) 1.8 % Eosinophils (%) (Auto) 0.0 % Basophils (%) (Auto) 0.0 % Neutrophils # (Auto) 7.09 K/uL Lymphocytes # (Auto) 0.41 K/uL Monocytes # (Auto) 0.14 K/uL Eosinophils # (Auto) 0.00 K/uL Basophils # (Auto) 0.00 K/uL RDW Standard Deviation 55.0 fL RDW Coefficient of Variation 22.0 % Immature Granulocyte % (Auto) 0.4 % Immature Granulocyte # (Auto) 0.03 K/uL Platelet Estimate DECREASED Polychromasia 1+ Anisocytosis PRESENT Microcytosis PRESENT Spherocytes 1+ Prothrombin Time 17.0 SECONDS Prothromb Time International Ratio 1.6 Sodium Level 141 mmol/L Potassium Level 3.8 mmol/L Chloride Level 105 mmol/L Carbon Dioxide Level 30 mmol/L Anion Gap 6.0 mmol/L Blood Urea Nitrogen 47 mg/dl Creatinine 1.81 mg/dl Est Creatinine Clear Calc Drug Dose 39.2 ml/min Estimated GFR () 31.6 Estimated GFR (Non- 27.3 BUN/Creatinine Ratio 25.9 Random Glucose 189 mg/dl Calcium Level 8.7 mg/dl Phosphorus Level 2.1 mg/dl Magnesium Level 2.1 mg/dl Pro-B-Type Natriuretic Peptide 5935 pg/ml Test 03/21/18 11:37 Bedside Glucose 201 mg/dl Assessment and Plan 72-year-old female admitted because of right shoulder pain secondary to fall at home on 03/17/2018, was transferred to MICU because of hypercapnic respiratory failure was intubated This morning was extubated, Acute hypercapnic respiratory failure, stable improving and resolving, inbubated and extubated on March 18 2018 hx of COPD chronic respiratory failure. Obstructive sleep apnea, has CPAP machine at home Patient report has CPAP machine at home, was follow-up with [facility] in [facility] On March 19, 2018 ABG shows CO2 retention and hypercapnic, associated with lethargic mild, possible metabolic encephalopathy, has been on BiPAP, patient is improving on BiPAP Start Solu-Medrol March 20, 2018 for the treatment of possible COPD exacerbation , continue and slowly tapering Increased free water restriction from 1.8 L to 1.5 years daily , have double dose of torsemide diuretic on March 20, 2018 for a possible fluid retention, recent echo does not show systolic or diastolic CHF, will back torsemide to 10 mg p.o. twice daily atrial fibrillation, on Coumadin yesterday. Coumadin 4 mg p.o. daily , INR is 1.6 today, increased Coumadin dose to 5 mg p.o. daily, and follow-up PT/INR Possible acute kidney failure creatinine with stage III chronic kidney disease cr 2 upon admission, creatinine continues stable improving, however today's creatinine is 1.8 from 1.69 will continue to follow Morbid obesity with BMI 54.1 Right shoulder pain after fall, stable improving coronary artery disease, depression, type 2 diabetes, will watch blood glucose closely when patient is on Solu-Medrol gout, hyperlipidemia hypothyroidism, obstructive secondary hyperparathyroidism and vitamin D deficiency. Above condition stable continue current care was on BiPAP approximately 4 hours on 4 hours off, or l off when eating meat, will back to [place] O2 with home setting Plan rehab over the weekend, need insurance auth prior to discharge. Palliative care and cyberathlete patient is do not resuscitation DVT prophylaxis covered, Continued [facility] stay due to: multiple IV medications needed Discharge planning: rehab hospital
[2018-03-21] MEDS: WARFARIN SOD 5 MG TAB PO SCH (15:58)
[2018-03-22] VITALS (10 sets, daily range): BP systolic 114–160; BP diastolic 67–87; PULSE 63–83; TEMP 36.5–36.9; O2SAT 90–95
[2018-03-22] MEDS: LEVOTHYROXINE 112 MCG TAB PO SCH (05:47)
[2018-03-22] MEDS: INSULIN ASPART 100 UNITS/ML 3 ML PEN SC SCH ×4 (06:30→22:08)
[2018-03-22 06:51] LABS: INR 1.5 (0.9-1.1)
[2018-03-22 07:17] LABS: CALCIUM 8.6 mg/dl (8.5-10.1); CREATININE 1.9 mg/dl (0.60-1.20); PHOSPHORUS 2.6 mg/dl (2.5-4.9); POTASSIUM 3.7 mmol/L (3.5-5.1)
[2018-03-22] MEDS: TIOTROPIUM BROMIDE 5 PUFF/90 MCG INH INH SCH (07:56)
[2018-03-22] MEDS: BUDESONIDE/FORMOTEROL FUMARATE 160/4.5 60 PUFFS/INHALER INH SCH ×2 (07:56→21:53)
[2018-03-22] MEDS: SERTRALINE HCL 50 MG TAB PO SCH (07:57)
[2018-03-22] MEDS: CALCIUM 600MG + VIT D 400 IU TAB PO SCH (07:57)
[2018-03-22] MEDS: FEBUXOSTAT 40 MG TAB PO SCH (07:57)
[2018-03-22] MEDS: ASPIRIN 81 MG ECTAB PO SCH (07:57)
[2018-03-22] MEDS: DOCUSATE SODIUM 100 MG CAP PO SCH (07:57)
[2018-03-22] MEDS: ROSUVASTATIN CALCIUM 10 MG TAB PO SCH (07:57)
[2018-03-22] MEDS: PANTOprazole SOD 40 MG TAB PO SCH (07:58)
[2018-03-22] MEDS: METOPROLOL TARTRATE 25 MG TAB PO SCH ×3 (08:00→21:54)
[2018-03-22] MEDS: MAGNESIUM OXIDE 400 MG TAB PO SCH (08:00)
[2018-03-22] MEDS: SPIRONOLACTONE 25 MG TAB PO SCH ×2 (08:00→11:06)
[2018-03-22] MEDS: ANASTROZOLE 1 MG TAB PO SCH (08:00)
[2018-03-22] MEDS: NYSTATIN POWDER 15GM BTL EXT SCH ×2 (08:00→21:53)
[2018-03-22] MEDS: TORSEMIDE 20 MG TAB PO SCH ×2 (08:01→21:54)
[2018-03-22] MEDS: DICLOFENAC SOD 1% GEL 100 GM TUBE EXT SCH ×4 (08:01→21:53)
[2018-03-22] MEDS: METHYLPREDNISOLONE IV 80 MG in SYRINGE 0 ML IV SCH (08:01)
[2018-03-22] MEDS: CEPHALEXIN SUSP 250 MG/5 ML UDP PO SCH ×4 (08:08→22:00)
[2018-03-22] MEDS: PREGABALIN 150 MG CAP PO SCH ×3 (08:08→22:00)
[2018-03-22] MEDS: METHYLPREDNISOLONE IV 60 MG in SYRINGE 0 ML IV SCH ×2 (14:17→21:54)
--- NOTE | 2018-03-22 15:57 | Progress Note ---
Subjective Date of Service: Mar 22, 2018. Subjective Pt evaluation today including: conversation w/ patient, conversation w/ family , physical exam, chart review, lab review, review of studies, conversation w/ wedding consultant, review of inpatient medication list Continue doing fair, out of bed to chair, on nasal cannula oxygen baseline, lower extremity swelling is better, eating lunch, Problem List Medical Problems: (1) Altered mental status Status: Acute (2) Chronic kidney disease (CKD) Status: Acute (3) Left leg cellulitis Status: Acute (4) Respiratory failure Status: Acute (5) Shortness of breath Status: Acute (6) Syncope Status: Acute Review of Systems Constitutional: + weakness, + fatigue, No fever, No chills, No sweats, No weight loss, No problem reported Eyes: No worsening of vision, No eye pain, No redness, No discharge, No diplopia ENT: No hearing loss, No unusual epistaxis, No nasal symptoms, No sore throat, No tinnitus, No dental problems, No trouble swallowing Respiratory: + shortness of breath, No cough, No sputum, No wheezing, No dyspnea on exertion, No dyspnea at rest, No hemoptysis Cardiac: + edema (Is better), No chest pain, No orthopnea, No PND, No claudication, No palpitations Abdomen: No pain, No nausea, No vomiting, No diarrhea, No constipation Musculoskeletal: No joint pain, No muscle pain, No swelling, No calf pain Female : No dysuria, No urinary frequency, No hematuria, No incontinence, No abnormal vaginal bleeding, No vaginal discharge Neurologic: No memory loss, No paralysis, No weakness, No numbness/tingling, No vertigo, No balance problems Psychiatric: No depression symptoms, No anhedonism, No anxiety, No insomnia, No substance abuse Heme: No abnormal bleeding/bruising, No clotting problems, No swollen lymph nodes, No night sweats Endo: No fatigue, No excessive thirst, No excessive urination Skin: No rash, No itch, No new/changing skin lesions, No color change, No bleeding Objective Vital Signs Date Time Temp Pulse Resp B/P (MAP) Pulse Ox O2 Delivery O2 Flow Rate FiO2 03/22/18 14:50 36.7 83 20 135/75 (95) 95 03/22/18 11:39 36.5 81 20 116/73 (87) 94 03/22/18 08:00 92 Nasal Cannula 4.0 BiPAP 03/22/18 07:23 36.6 77 20 149/87 (107) 92 03/22/18 05:18 63 92 4.0 03/22/18 03:48 36.5 80 20 160/85 (110) 90 CPAP 03/22/18 01:59 67 94 4.0 03/22/18 00:00 Nasal Cannula 4.0 BiPAP 03/21/18 23:36 36.6 77 20 129/70 (89) 92 CPAP 03/21/18 22:55 89 92 4.0 03/21/18 20:00 36.6 79 20 132/73 (92) 93 4.0 03/21/18 20:00 Nasal Cannula 4.0 BiPAP 03/21/18 16:00 Nasal Cannula 4.0 Physical Exam General Appearance: WD/WN, no apparent distress, + obese Eyes: normal inspection, PERRL, EOMI, sclerae normal ENT: normal ENT inspection, hearing grossly normal, pharynx normal Neck: supple, no adenopathy, thyroid normal, no JVD, no carotid bruits, trachea midline Respiratory/Chest: chest non-tender, lungs clear, normal breath sounds, no respiratory distress, no accessory muscle use, + decreased breath sounds Cardiovascular: regular rate, rhythm, no gallop, no JVD, no murmur, + irregularly irregular Abdomen: normal bowel sounds, non tender, soft, no organomegaly, no pulsatile mass Extremities: normal range of motion, non-tender, normal inspection, no pedal edema, no calf tenderness, normal capillary refill, pelvis stable, + swelling (2 -3+ edema, is better than yesterday,) Neurologic/Psychiatric: 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 as tested, no motor/sensory deficits, alert, normal mood/affect, oriented x 3 Skin: normal color, warm/dry, no rash Lymphatic: no adenopathy Laboratory Results Last 24 Hours Test 03/21/18 16:19 03/21/18 21:07 03/21/18 21:34 03/22/18 06:11 Bedside Glucose 178 mg/dl 167 mg/dl 178 mg/dl Prothrombin Time 16.1 SECONDS Prothromb Time International Ratio 1.5 Sodium Level 141 mmol/L Potassium Level 3.7 mmol/L Chloride Level 104 mmol/L Carbon Dioxide Level 30 mmol/L Anion Gap 7.0 mmol/L Blood Urea Nitrogen 63 mg/dl Creatinine 1.90 mg/dl Est Creatinine Clear Calc Drug Dose 37.3 ml/min Estimated GFR () 29.8 Estimated GFR (Non- 25.7 BUN/Creatinine Ratio 33.1 Random Glucose 182 mg/dl Calcium Level 8.6 mg/dl Phosphorus Level 2.6 mg/dl Magnesium Level 2.2 mg/dl Test 03/22/18 07:30 03/22/18 11:29 Bedside Glucose 167 mg/dl 184 mg/dl Assessment and Plan 72-year-old female admitted because of right shoulder pain secondary to fall at home on 03/17/2018, was transferred to MICU because of hypercapnic respiratory failure was intubated This morning was extubated, Acute hypercapnic respiratory failure, stable improving and resolving, inbubated and extubated on March 18 2018 hx of COPD chronic respiratory failure. Obstructive sleep apnea, has CPAP machine at home Patient report has CPAP machine at home, was follow-up with fire boss in [facility] On March 19, 2018 ABG shows CO2 retention and hypercapnic, associated with lethargic mild, possible metabolic encephalopathy, has been on BiPAP, patient is improving on BiPAP Start Solu-Medrol March 20, 2018 for the treatment of possible COPD exacerbation , continue and slowly tapering Increased free water restriction from 1.8 L to 1.5 years daily , have double dose of torsemide diuretic on March 20, 2018 for a possible fluid retention, recent echo does not show systolic or diastolic CHF, has back up torsemide to 10 mg p.o. twice daily because of renal function, patient is on Aldactone as well, will watch renal function and electrolytes were closely atrial fibrillation, on Coumadin yesterday. Coumadin 4 mg p.o. daily , INR is 1.6 today, increased Coumadin dose to 5 mg p.o. daily, and follow-up PT/INR, today INR is 1.5 we will give additional 1 mg Coumadin today Possible acute kidney failure creatinine with stage III chronic kidney disease cr 2 upon admission, creatinine continues stable improving, however today's creatinine is 1.8 from 1.69 will continue to follow Morbid obesity with BMI 54.1 Right shoulder pain after fall, stable improving coronary artery disease, depression, type 2 diabetes, will watch blood glucose closely when patient is on Solu-Medrol gout, hyperlipidemia hypothyroidism, obstructive secondary hyperparathyroidism and vitamin D deficiency. Above condition stable continue current care Off BiPAP machine, continue CPAP machine at nighttime, continue NC O2 at daytime Plan rehab over the weekend, need insurance auth prior to discharge. 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
[2018-03-22] MEDS ORDERED: WARFARIN SOD 1 MG TAB PO ONE (16:00)
[2018-03-22] MEDS: WARFARIN SOD 5 MG TAB PO SCH (16:30)
[2018-03-23] VITALS (9 sets, daily range): BP systolic 122–147; BP diastolic 69–92; PULSE 70–89; TEMP 36.4–36.9; O2SAT 93–98
[2018-03-23 05:48] LABS: HEMATOCRIT 40.9 % (37-47); HEMOGLOBIN 12.6 g/dL (12.0-16.0); IG# 0.03 K/uL (0.00-0.02); LYMPH % 6.6 %; LYMPH ABS # 0.53 K/uL (1.2-3.4); MEAN CELL VOLUME 68.2 fL (80-100); MEAN CORPUSCULAR HGB CONC 30.8 g/dl (32-36); MONO % 4.7 %; MONO ABS # 0.38 K/uL (0.11-0.59); NEUT % 88.3 %; NEUT ABS # 7.09 K/uL (1.4-6.5); PLATELET COUNT 156 K/uL (130-400); RED CELL DISTRIBUTION WIDTH CV 22.1 % (11.5-14.5); RED CELL DISTRIBUTION WIDTH SD 54.3 fL (36.4-46.3); WHITE BLOOD COUNT 8.03 K/uL (4.8-10.8)
[2018-03-23] MEDS: METHYLPREDNISOLONE IV 60 MG in SYRINGE 0 ML IV SCH ×2 (05:56→13:47)
[2018-03-23] MEDS: LEVOTHYROXINE 112 MCG TAB PO SCH (05:56)
[2018-03-23 06:22] LABS: CALCIUM 8.6 mg/dl (8.5-10.1); CREATININE 1.68 mg/dl (0.60-1.20); POTASSIUM 3.8 mmol/L (3.5-5.1)
[2018-03-23] MEDS: INSULIN ASPART 100 UNITS/ML 3 ML PEN SC SCH ×4 (07:44→21:39)
[2018-03-23] MEDS: NYSTATIN POWDER 15GM BTL EXT SCH ×2 (07:59→21:40)
[2018-03-23] MEDS: BUDESONIDE/FORMOTEROL FUMARATE 160/4.5 60 PUFFS/INHALER INH SCH ×2 (07:59→21:41)
[2018-03-23] MEDS: CALCIUM 600MG + VIT D 400 IU TAB PO SCH (08:00)
[2018-03-23] MEDS: CEPHALEXIN SUSP 250 MG/5 ML UDP PO SCH ×4 (08:00→21:41)
[2018-03-23] MEDS: ASPIRIN 81 MG ECTAB PO SCH (08:00)
[2018-03-23] MEDS: SERTRALINE HCL 50 MG TAB PO SCH (08:00)
[2018-03-23] MEDS: PANTOprazole SOD 40 MG TAB PO SCH (08:04)
[2018-03-23] MEDS: SPIRONOLACTONE 25 MG TAB PO SCH (08:04)
[2018-03-23] MEDS: TORSEMIDE 20 MG TAB PO SCH ×2 (08:05→21:41)
[2018-03-23] MEDS: ROSUVASTATIN CALCIUM 10 MG TAB PO SCH (08:05)
[2018-03-23] MEDS: FEBUXOSTAT 40 MG TAB PO SCH (08:05)
[2018-03-23] MEDS: METOPROLOL TARTRATE 25 MG TAB PO SCH ×3 (08:05→21:42)
[2018-03-23] MEDS: DOCUSATE SODIUM 100 MG CAP PO SCH (08:05)
[2018-03-23] MEDS: DICLOFENAC SOD 1% GEL 100 GM TUBE EXT SCH ×4 (08:06→21:41)
[2018-03-23] MEDS: MAGNESIUM OXIDE 400 MG TAB PO SCH (08:06)
[2018-03-23] MEDS: ANASTROZOLE 1 MG TAB PO SCH (08:11)
[2018-03-23] MEDS: TIOTROPIUM BROMIDE 5 PUFF/90 MCG INH INH SCH (08:13)
[2018-03-23] MEDS: PREGABALIN 150 MG CAP PO SCH ×3 (08:16→21:42)
[2018-03-23 08:52] LABS: INR 1.6 (0.9-1.1)
--- NOTE | 2018-03-23 15:09 | Progress Note ---
Subjective Date of Service: Mar 23, 2018. Subjective Pt evaluation today including: conversation w/ patient, physical exam, chart review, lab review, review of studies, conversation w/ pre owned sales consultant, review of inpatient medication list Out of bed to chair, continue to include, wearing CPAP and nighttime, lower extremity swelling is much better, denies difficult breathing Problem List Medical Problems: (1) Altered mental status Status: Acute (2) Chronic kidney disease (CKD) Status: Acute (3) Left leg cellulitis Status: Acute (4) Respiratory failure Status: Acute (5) Shortness of breath Status: Acute (6) Syncope Status: Acute Review of Systems Constitutional: + weakness, + fatigue, No fever, No chills, No sweats, No weight loss, No problem reported Eyes: No worsening of vision, No eye pain, No redness, No discharge, No diplopia ENT: No hearing loss, No unusual epistaxis, No nasal symptoms, No sore throat, No tinnitus, No dental problems, No trouble swallowing Respiratory: No cough, No sputum, No wheezing, No shortness of breath, No dyspnea on exertion, No dyspnea at rest, No hemoptysis Cardiac: No chest pain, No orthopnea, No PND, No edema, No claudication, No palpitations Abdomen: No pain, No nausea, No vomiting, No diarrhea, No constipation Musculoskeletal: No joint pain, No muscle pain, No swelling, No calf pain Female : No dysuria, No urinary frequency, No hematuria, No incontinence, No abnormal vaginal bleeding, No vaginal discharge Neurologic: No memory loss, No paralysis, No weakness, No numbness/tingling, No vertigo, No balance problems Psychiatric: No depression symptoms, No anhedonism, No anxiety, No insomnia, No substance abuse Heme: No abnormal bleeding/bruising, No clotting problems, No swollen lymph nodes, No night sweats Endo: No fatigue, No excessive thirst, No excessive urination Skin: No rash, No itch, No new/changing skin lesions, No color change, No bleeding Objective Vital Signs Date Time Temp Pulse Resp B/P (MAP) Pulse Ox O2 Delivery O2 Flow Rate FiO2 03/23/18 14:55 36.5 79 20 122/73 (89) 97 03/23/18 11:13 36.4 89 20 147/77 (100) 98 Nasal Cannula 4.0 03/23/18 08:00 95 Nasal Cannula 4.0 BiPAP 03/23/18 07:27 36.5 76 20 141/92 (108) 95 4.0 03/23/18 05:34 70 95 4.0 03/23/18 04:00 36.9 73 20 145/74 (97) 94 CPAP 03/23/18 02:16 74 93 4.0 03/23/18 00:01 CPAP 03/22/18 23:22 36.5 64 20 114/67 (83) 91 CPAP 03/22/18 21:40 81 94 4.0 03/22/18 20:06 36.9 82 20 127/81 (96) 94 4.0 03/22/18 17:30 Nasal Cannula 4.0 Physical Exam General Appearance: WD/WN, no apparent distress, + obese Eyes: normal inspection, PERRL, EOMI, sclerae normal ENT: normal ENT inspection, hearing grossly normal, pharynx normal Neck: supple, no adenopathy, thyroid normal, no JVD, no carotid bruits, trachea midline Respiratory/Chest: chest non-tender, normal breath sounds, no respiratory distress, no accessory muscle use, + decreased breath sounds Cardiovascular: regular rate, rhythm, no edema, no gallop, no JVD, no murmur Abdomen: normal bowel sounds, non tender, soft, no organomegaly, no pulsatile mass Extremities: normal range of motion, non-tender, normal inspection, no pedal edema, no calf tenderness, normal capillary refill, pelvis stable, + swelling (1 -2+ edema) Neurologic/Psychiatric: 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 tested, no motor/sensory deficits, alert, normal mood/affect, oriented x 3 Skin: normal color, warm/dry, no rash Lymphatic: no adenopathy Laboratory Results Last 24 Hours Test 03/22/18 16:08 03/22/18 20:38 03/23/18 05:12 03/23/18 07:38 Bedside Glucose 241 mg/dl 182 mg/dl 152 mg/dl White Blood Count 8.03 K/uL Red Blood Count 6.00 M/uL Hemoglobin 12.6 g/dL Hematocrit 40.9 % Mean Corpuscular Volume 68.2 fL Mean Corpuscular Hemoglobin 21.0 pg Mean Corpuscular Hemoglobin Concent 30.8 g/dl Platelet Count 156 K/uL Neutrophils (%) (Auto) 88.3 % Lymphocytes (%) (Auto) 6.6 % Monocytes (%) (Auto) 4.7 % Eosinophils (%) (Auto) 0.0 % Basophils (%) (Auto) 0.0 % Neutrophils # (Auto) 7.09 K/uL Lymphocytes # (Auto) 0.53 K/uL Monocytes # (Auto) 0.38 K/uL Eosinophils # (Auto) 0.00 K/uL Basophils # (Auto) 0.00 K/uL RDW Standard Deviation 54.3 fL RDW Coefficient of Variation 22.1 % Immature Granulocyte % (Auto) 0.4 % Immature Granulocyte # (Auto) 0.03 K/uL Anisocytosis PRESENT Microcytosis PRESENT Spherocytes 1+ Sodium Level 142 mmol/L Potassium Level 3.8 mmol/L Chloride Level 104 mmol/L Carbon Dioxide Level 31 mmol/L Anion Gap 7.0 mmol/L Blood Urea Nitrogen 71 mg/dl Creatinine 1.68 mg/dl Est Creatinine Clear Calc Drug Dose 42.1 ml/min Estimated GFR () 34.6 Estimated GFR (Non- 29.8 BUN/Creatinine Ratio 42.5 Random Glucose 164 mg/dl Calcium Level 8.6 mg/dl Phosphorus Level 3.0 mg/dl Magnesium Level 2.2 mg/dl Test 03/23/18 08:24 03/23/18 11:27 Prothrombin Time 16.6 SECONDS Prothromb Time International Ratio 1.6 Bedside Glucose 177 mg/dl Assessment and Plan 72-year-old female admitted because of right shoulder pain secondary to fall at home on 03/17/2018, was transferred to MICU because of hypercapnic respiratory failure was intubated Second morning was extubated, was transiently bipap after move out of ICU, have been off BiPAP , continued stable and improving for 2-3 day Acute hypercapnic respiratory failure, stable improving and resolving, inbubated and extubated on March 18 2018 hx of COPD chronic respiratory failure. Obstructive sleep apnea, has CPAP machine at home Patient report has CPAP machine at home, was follow-up with cobbler mckay in [facility] On March 19, 2018 ABG shows CO2 retention and hypercapnic, associated with lethargic mild, possible metabolic encephalopathy, has been on BiPAP, patient is improving on BiPAP Start Solu-Medrol March 20, 2018 for the treatment of possible COPD exacerbation , continue and slowly tapering, today tapering to 40 mg IV every 8 hour, can switch to oral prednisone upon discharge Increased free water restriction from 1.8 L to 1.5 L daily , have double dose of torsemide diuretic on March 20, 2018 for a possible fluid retention, recent echo does not show systolic or diastolic CHF, has back up torsemide to 10 mg p.o. twice daily because of renal function, patient is on Aldactone as well, will watch renal function and electrolytes were closely atrial fibrillation, on Coumadin yesterday. Coumadin 4 mg p.o. daily , INR is 1.6 today, increased Coumadin dose to 5 mg p.o. daily, and follow-up PT/INR, today INR is 1.6 Possible acute kidney failure creatinine with stage III chronic kidney disease cr 2 upon admission, creatinine continues stable improving, however today's creatinine is 1.8 from 1.69 will continue to follow Morbid obesity with BMI 54.1 Right shoulder pain after fall, stable improving coronary artery disease, depression, type 2 diabetes, will watch blood glucose closely when patient is on Solu-Medrol gout, hyperlipidemia hypothyroidism, obstructive secondary hyperparathyroidism and vitamin D deficiency. Above condition stable continue current care continue CPAP machine at nighttime, continue NC O2 at daytime Plan rehab over the weekend, need insurance auth prior to discharge. 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
[2018-03-23] MEDS: WARFARIN SOD 5 MG TAB PO SCH (16:35)
[2018-03-23] MEDS: METHYLPREDNISOLONE IV 40 MG in SYRINGE 0 ML IV SCH (21:42)
[2018-03-24] VITALS (8 sets, daily range): BP systolic 104–141; BP diastolic 68–88; PULSE 67–93; TEMP 36.5–37.1; O2SAT 91–95
[2018-03-24] MEDS: METHYLPREDNISOLONE IV 40 MG in SYRINGE 0 ML IV SCH ×3 (06:04→21:06)
[2018-03-24] MEDS: LEVOTHYROXINE 112 MCG TAB PO SCH (06:04)
[2018-03-24 06:20] LABS: INR 1.7 (0.9-1.1)
[2018-03-24] MEDS: INSULIN ASPART 100 UNITS/ML 3 ML PEN SC SCH ×4 (06:30→21:03)
[2018-03-24 06:47] LABS: CALCIUM 8.6 mg/dl (8.5-10.1); CREATININE 1.85 mg/dl (0.60-1.20); POTASSIUM 4.1 mmol/L (3.5-5.1)
[2018-03-24] MEDS ORDERED: ERGOCALCIFEROL 50,000 INTER.UNIT CAP PO SCH (09:00)
[2018-03-24] MEDS: BUDESONIDE/FORMOTEROL FUMARATE 160/4.5 60 PUFFS/INHALER INH SCH ×2 (09:05→20:54)
[2018-03-24] MEDS: DICLOFENAC SOD 1% GEL 100 GM TUBE EXT SCH ×4 (09:05→20:53)
[2018-03-24] MEDS: NYSTATIN POWDER 15GM BTL EXT SCH ×2 (09:06→20:53)
[2018-03-24] MEDS: SERTRALINE HCL 50 MG TAB PO SCH (09:06)
[2018-03-24] MEDS: PANTOprazole SOD 40 MG TAB PO SCH (09:06)
[2018-03-24] MEDS: TIOTROPIUM BROMIDE 5 PUFF/90 MCG INH INH SCH (09:06)
[2018-03-24] MEDS: ASPIRIN 81 MG ECTAB PO SCH (09:07)
[2018-03-24] MEDS: METOPROLOL TARTRATE 25 MG TAB PO SCH ×3 (09:07→20:55)
[2018-03-24] MEDS: DOCUSATE SODIUM 100 MG CAP PO SCH (09:08)
[2018-03-24] MEDS: TORSEMIDE 20 MG TAB PO SCH ×2 (09:08→20:55)
[2018-03-24] MEDS: ROSUVASTATIN CALCIUM 10 MG TAB PO SCH (09:08)
[2018-03-24] MEDS: CALCIUM 600MG + VIT D 400 IU TAB PO SCH (09:08)
[2018-03-24] MEDS: MAGNESIUM OXIDE 400 MG TAB PO SCH (09:08)
[2018-03-24] MEDS: SPIRONOLACTONE 25 MG TAB PO SCH (09:08)
[2018-03-24] MEDS: FEBUXOSTAT 40 MG TAB PO SCH (09:08)
[2018-03-24] MEDS: PREGABALIN 150 MG CAP PO SCH ×3 (09:12→20:58)
[2018-03-24] MEDS: ANASTROZOLE 1 MG TAB PO SCH (09:12)
[2018-03-24] MEDS: CEPHALEXIN SUSP 250 MG/5 ML UDP PO SCH ×4 (09:12→20:59)
[2018-03-24] MEDS: WARFARIN SOD 5 MG TAB PO SCH (16:09)
[2018-03-24] MEDS ORDERED: BISACODYL 10 MG SUPP PR STA (16:30)
--- NOTE | 2018-03-24 17:04 | Progress Note ---
Subjective Date of Service: Mar 24, 2018. Subjective pt is in good spirits, she has no shortness of breath and is tolerating bipap, she is awaiting referral to subacute rehab Problem List Medical Problems: (1) Altered mental status Status: Acute (2) Chronic kidney disease (CKD) Status: Acute (3) Left leg cellulitis Status: Acute (4) Respiratory failure Status: Acute (5) Shortness of breath Status: Acute (6) Syncope Status: Acute Review of Systems Constitutional: + weakness, + fatigue, No fever, No chills Respiratory: + dyspnea on exertion (baseline), No cough, No wheezing, No shortness of breath Cardiac: No chest pain, No edema Abdomen: + constipation, No pain, No nausea, No vomiting, No diarrhea Psychiatric: No depression symptoms, No anxiety Objective Vital Signs Date Time Temp Pulse Resp B/P (MAP) Pulse Ox O2 Delivery O2 Flow Rate FiO2 03/24/18 15:26 36.5 84 18 116/71 (86) 94 Nasal Cannula 4.0 03/24/18 11:30 36.6 72 20 107/69 (82) 94 Nasal Cannula 03/24/18 08:00 Nasal Cannula 4.0 03/24/18 07:24 37.0 74 20 133/83 (100) 91 Room Air 4.0 03/24/18 04:45 36.5 68 16 141/88 (105) 95 CPAP 03/24/18 00:22 37.1 78 16 104/68 (80) 95 CPAP 03/24/18 00:00 CPAP 03/23/18 23:12 76 94 4.0 03/23/18 20:43 36.8 80 18 129/69 (89) 93 4.0 03/23/18 16:45 Nasal Cannula 4.0 Physical Exam General Appearance: WD/WN, + mild distress (seems to have baseline sob) Neck: supple, trachea midline Respiratory/Chest: chest non-tender, + decreased breath sounds, + accessory muscle use Cardiovascular: regular rate, rhythm, no murmur Abdomen: normal bowel sounds, non tender, soft Extremities: + pedal edema, + swelling (some chronic venous stasis changes to LE) Neurologic/Psychiatric: alert, oriented x 3 Laboratory Results Last 24 Hours Test 03/23/18 20:54 03/24/18 05:55 03/24/18 07:38 03/24/18 11:40 Bedside Glucose 224 mg/dl 143 mg/dl 217 mg/dl Prothrombin Time 17.3 SECONDS Prothromb Time International Ratio 1.7 Sodium Level 145 mmol/L Potassium Level 4.1 mmol/L Chloride Level 106 mmol/L Carbon Dioxide Level 33 mmol/L Anion Gap 6.0 mmol/L Blood Urea Nitrogen 80 mg/dl Creatinine 1.85 mg/dl Est Creatinine Clear Calc Drug Dose 37.9 ml/min Estimated GFR () 30.8 Estimated GFR (Non- 26.5 BUN/Creatinine Ratio 43.0 Random Glucose 156 mg/dl Calcium Level 8.6 mg/dl Magnesium Level 2.5 mg/dl Test 03/24/18 16:04 Bedside Glucose 146 mg/dl Assessment and Plan (1) Respiratory failure, acute Assessment & Plan: Acute hypercapnic respiratory failure, resolved with continued bipap support inbubated and extubated on March 18 2018 hx of COPD chronic respiratory failure. Obstructive sleep apnea, has CPAP machine at home Patient report has CPAP machine at home, was follow-up with broth mixer in [facility] On March 19, 2018 ABG shows CO2 retention and hypercapnic, associated with lethargic mild, possible metabolic encephalopathy, has been on BiPAP, patient is improved on BiPAP Started Solu-Medrol March 20, 2018 for the treatment of possible COPD exacerbation, continue tapering (2) Diastolic CHF Assessment & Plan: History of diastolic heart failure, recent echo confirms, metoprolol initially held torsemide to 10 mg p.o. twice daily because of renal function, resumed along with aldactone (3) Chronic kidney disease Assessment & Plan: acute kidney failure creatinine with stage III chronic kidney disease cr 2 upon admission, creatinine improved from previous but still varying (4) Diabetes Assessment & Plan: SSI bolus insulin especially while on steroids (5) DVT prophylaxis Assessment & Plan: is on coumadin, INr is low adjust warfarin up on 03/24 Continued [facility] stay due to: home environment unsafe for pt Discharge planning: rehab hospital Problem Qualifiers (1) Chronic kidney disease: Chronic kidney disease stage: stage 3 (moderate) Qualified Codes: N18.3 - Chronic kidney disease, stage 3 (moderate)
[2018-03-24] MEDS ORDERED: POLYETHYLENE (MIRALAX) 17 GM PACK PO ONE (17:15)
[2018-03-25] VITALS (11 sets, daily range): BP systolic 91–164; BP diastolic 61–96; PULSE 61–91; TEMP 36.2–37; O2SAT 93–98
[2018-03-25] MEDS: LEVOTHYROXINE 112 MCG TAB PO SCH (05:36)
[2018-03-25] MEDS: METHYLPREDNISOLONE IV 40 MG in SYRINGE 0 ML IV SCH ×3 (05:36→22:08)
[2018-03-25 07:22] LABS: INR 1.9 (0.9-1.1)
[2018-03-25] MEDS: POLYETHYLENE (MIRALAX) 17 GM PACK PO SCH (08:14)
[2018-03-25] MEDS: TIOTROPIUM BROMIDE 5 PUFF/90 MCG INH INH SCH (08:14)
[2018-03-25] MEDS: CEPHALEXIN SUSP 250 MG/5 ML UDP PO SCH ×4 (08:14→20:37)
[2018-03-25] MEDS: BUDESONIDE/FORMOTEROL FUMARATE 160/4.5 60 PUFFS/INHALER INH SCH ×2 (08:15→20:30)
[2018-03-25] MEDS: MAGNESIUM OXIDE 400 MG TAB PO SCH (08:17)
[2018-03-25] MEDS: DOCUSATE SODIUM 100 MG CAP PO SCH (08:17)
[2018-03-25] MEDS: CALCIUM 600MG + VIT D 400 IU TAB PO SCH (08:17)
[2018-03-25] MEDS: ROSUVASTATIN CALCIUM 10 MG TAB PO SCH (08:17)
[2018-03-25] MEDS: DICLOFENAC SOD 1% GEL 100 GM TUBE EXT SCH ×4 (08:17→20:30)
[2018-03-25] MEDS: SPIRONOLACTONE 25 MG TAB PO SCH (08:18)
[2018-03-25] MEDS: ASPIRIN 81 MG ECTAB PO SCH (08:18)
[2018-03-25] MEDS: TORSEMIDE 20 MG TAB PO SCH ×2 (08:18→20:31)
[2018-03-25] MEDS: SERTRALINE HCL 50 MG TAB PO SCH (08:19)
[2018-03-25] MEDS: PREGABALIN 150 MG CAP PO SCH ×3 (08:19→20:37)
[2018-03-25] MEDS: FEBUXOSTAT 40 MG TAB PO SCH (08:19)
[2018-03-25] MEDS: PANTOprazole SOD 40 MG TAB PO SCH (08:19)
[2018-03-25] MEDS: METOPROLOL TARTRATE 25 MG TAB PO SCH ×3 (08:20→20:34)
[2018-03-25] MEDS: ANASTROZOLE 1 MG TAB PO SCH (08:23)
[2018-03-25] MEDS: INSULIN ASPART 100 UNITS/ML 3 ML PEN SC SCH ×4 (08:24→20:39)
[2018-03-25] MEDS: NYSTATIN POWDER 15GM BTL EXT SCH ×2 (08:27→20:42)
[2018-03-25] MEDS: WARFARIN SOD 6 MG TAB PO SCH (17:00)
--- NOTE | 2018-03-25 17:55 | Progress Note ---
Subjective Date of Service: Mar 25, 2018. Subjective this pt is feeling better we are still awaiting placement approval did have bowel movement according to patient Problem List Medical Problems: (1) Altered mental status Status: Acute (2) Chronic kidney disease (CKD) Status: Acute (3) Left leg cellulitis Status: Acute (4) Respiratory failure Status: Acute (5) Shortness of breath Status: Acute (6) Syncope Status: Acute Review of Systems Constitutional: + weakness, + fatigue, No fever, No chills Respiratory: + shortness of breath, + dyspnea on exertion, No cough, No wheezing Cardiac: No chest pain, No orthopnea Abdomen: No pain, No nausea Musculoskeletal: No joint pain, No muscle pain Neurologic: + weakness, No memory loss Objective Vital Signs Date Time Temp Pulse Resp B/P (MAP) Pulse Ox O2 Delivery O2 Flow Rate FiO2 03/25/18 15:13 36.9 71 24 125/79 (94) 96 Nasal Cannula 4.0 03/25/18 12:13 36.8 61 20 107/69 (82) 93 Nasal Cannula 4.0 03/25/18 07:50 95 Nasal Cannula 4.0 03/25/18 07:48 36.2 65 18 148/82 (104) 95 4.0 03/25/18 04:53 36.4 66 18 161/96 (117) 97 Nasal Cannula 4.0 03/25/18 01:56 62 93 4.0 03/25/18 00:11 36.5 69 20 164/96 (118) 98 Nasal Cannula 4.0 03/25/18 00:00 Nasal Cannula 4.0 BiPAP 03/24/18 23:18 67 94 4.0 03/24/18 19:59 36.9 93 18 134/80 (98) 94 Nasal Cannula 4.0 Physical Exam General Appearance: WD/WN, + mild distress, + obese Neck: supple, trachea midline Respiratory/Chest: chest non-tender, + decreased breath sounds, + accessory muscle use Cardiovascular: regular rate, rhythm, + systolic murmur Abdomen: normal bowel sounds, non tender, soft Extremities: + pedal edema, + swelling Neurologic/Psychiatric: alert, oriented x 3 Skin: normal color, warm/dry Laboratory Results Last 24 Hours Test 03/24/18 20:16 03/25/18 06:34 8/7/18 07:36 03/25/18 11:28 Bedside Glucose 172 mg/dl 166 mg/dl 200 mg/dl Prothrombin Time 19.5 SECONDS Prothromb Time International Ratio 1.9 Test 03/25/18 16:25 Bedside Glucose 115 mg/dl Assessment and Plan (1) Respiratory failure, acute Assessment & Plan: Acute hypercapnic respiratory failure, resolved with continued bipap support, states that she wears CPAP at home with 3 liters inbubated and extubated on March 18 2018 hx of COPD chronic respiratory failure. Obstructive sleep apnea, has CPAP machine at home Patient report has CPAP machine at home, was follow-up with adobe layer in [facility] On March 19, 2018 ABG shows CO2 retention and hypercapnic, associated with lethargic mild, possible metabolic encephalopathy, has been on BiPAP, patient is improved on BiPAP Started Solu-Medrol March 20, 2018 for the treatment of possible COPD exacerbation, continue tapering (2) Diastolic CHF Assessment & Plan: History of diastolic heart failure, recent echo confirms, metoprolol initially held torsemide to 10 mg p.o. twice daily because of renal function, resumed along with aldactone, seems euvolemic (3) Chronic kidney disease Assessment & Plan: acute kidney failure creatinine with stage III chronic kidney disease cr 2 upon admission, creatinine contines to be stable (4) Diabetes Assessment & Plan: SSI bolus insulin especially while on steroids (5) DVT prophylaxis Assessment & Plan: is on coumadin, INr is low adjust warfarin up on 03/[address] [facility] stay due to: home environment unsafe for pt Discharge planning: rehab hospital Problem Qualifiers (1) Chronic kidney disease: Chronic kidney disease stage: stage 3 (moderate) Qualified Codes: N18.3 - Chronic kidney disease, stage 3 (moderate)
[2018-03-26] VITALS (11 sets, daily range): BP systolic 99–124; BP diastolic 62–77; PULSE 68–90; TEMP 36.6–37; O2SAT 90–96
[2018-03-26 05:38] LABS: HEMATOCRIT 43.6 % (37-47); HEMOGLOBIN 13.5 g/dL (12.0-16.0); MEAN CELL VOLUME 68.4 fL (80-100); MEAN CORPUSCULAR HEMOGLOBIN 21.2 pg (25-34); PLATELET COUNT 157 K/uL (130-400); RED CELL DISTRIBUTION WIDTH CV 22.1 % (11.5-14.5); RED CELL DISTRIBUTION WIDTH SD 54.1 fL (36.4-46.3); WHITE BLOOD COUNT 7.62 K/uL (4.8-10.8)
[2018-03-26 05:51] LABS: INR 2.1 (0.9-1.1)
[2018-03-26] MEDS: METHYLPREDNISOLONE IV 40 MG in SYRINGE 0 ML IV SCH ×3 (05:57→21:31)
[2018-03-26] MEDS: LEVOTHYROXINE 112 MCG TAB PO SCH (05:57)
[2018-03-26 06:01] LABS: CALCIUM 7.9 mg/dl (8.5-10.1); CREATININE 2.14 mg/dl (0.60-1.20); POTASSIUM 4.5 mmol/L (3.5-5.1)
[2018-03-26] MEDS: INSULIN ASPART 100 UNITS/ML 3 ML PEN SC SCH ×4 (06:30→21:05)
[2018-03-26] MEDS: METOPROLOL TARTRATE 25 MG TAB PO SCH ×3 (07:46→21:02)
[2018-03-26] MEDS: NYSTATIN POWDER 15GM BTL EXT SCH ×2 (08:15→21:01)
[2018-03-26] MEDS: DICLOFENAC SOD 1% GEL 100 GM TUBE EXT SCH ×4 (08:15→21:00)
[2018-03-26] MEDS: BUDESONIDE/FORMOTEROL FUMARATE 160/4.5 60 PUFFS/INHALER INH SCH ×2 (08:15→21:00)
[2018-03-26] MEDS: PREGABALIN 150 MG CAP PO SCH ×3 (08:16→20:59)
[2018-03-26] MEDS: SERTRALINE HCL 50 MG TAB PO SCH (08:16)
[2018-03-26] MEDS: PANTOprazole SOD 40 MG TAB PO SCH (08:16)
[2018-03-26] MEDS: ROSUVASTATIN CALCIUM 10 MG TAB PO SCH (08:16)
[2018-03-26] MEDS: DOCUSATE SODIUM 100 MG CAP PO SCH (08:16)
[2018-03-26] MEDS: TORSEMIDE 20 MG TAB PO SCH (08:17)
[2018-03-26] MEDS: FEBUXOSTAT 40 MG TAB PO SCH (08:17)
[2018-03-26] MEDS: ASPIRIN 81 MG ECTAB PO SCH (08:17)
[2018-03-26] MEDS: MAGNESIUM OXIDE 400 MG TAB PO SCH (08:17)
[2018-03-26] MEDS: CALCIUM 600MG + VIT D 400 IU TAB PO SCH (08:17)
[2018-03-26] MEDS: TIOTROPIUM BROMIDE 5 PUFF/90 MCG INH INH SCH (08:17)
[2018-03-26] MEDS: SPIRONOLACTONE 25 MG TAB PO SCH (08:18)
[2018-03-26] MEDS: POLYETHYLENE (MIRALAX) 17 GM PACK PO SCH (08:18)
[2018-03-26] MEDS: CEPHALEXIN SUSP 250 MG/5 ML UDP PO SCH (08:27)
[2018-03-26] MEDS: ANASTROZOLE 1 MG TAB PO SCH (08:27)
--- NOTE | 2018-03-26 13:47 | Progress Note ---
Subjective Date of Service: Mar 26, 2018. Subjective this pt feels improved we are awaiting approval for rehab and continuing to taper steroids and asses volume status given restarting of diuretics she offers no complaints Problem List Medical Problems: (1) Altered mental status Status: Acute (2) Chronic kidney disease (CKD) Status: Acute (3) Left leg cellulitis Status: Acute (4) Respiratory failure Status: Acute (5) Shortness of breath Status: Acute (6) Syncope Status: Acute Review of Systems Constitutional: + weakness, + fatigue, No fever, No chills Respiratory: + dyspnea on exertion, No see HPI, No shortness of breath Cardiac: + edema, No chest pain, No orthopnea, No PND Abdomen: No pain, No vomiting, No diarrhea Musculoskeletal: No joint pain, No muscle pain Female : No dysuria, No urinary frequency Psychiatric: No depression symptoms, No anxiety Objective Vital Signs Date Time Temp Pulse Resp B/P (MAP) Pulse Ox O2 Delivery O2 Flow Rate FiO2 03/26/18 12:08 36.8 90 18 112/71 (85) 93 Nasal Cannula 4.0 03/26/18 08:00 Nasal Cannula 4.0 03/26/18 06:58 36.6 90 20 99/70 (80) 94 4.0 03/26/18 05:18 73 92 4.0 03/26/18 04:23 37.0 71 18 103/67 (79) 92 CPAP 03/26/18 02:06 81 90 4.0 03/25/18 23:51 76 96 4.0 03/25/18 23:22 36.6 85 20 91/61 (71) 96 4.0 03/25/18 20:42 91 125/84 (98) 03/25/18 20:00 Nasal Cannula 4.0 BiPAP 03/25/18 19:40 37.0 75 20 138/92 (107) 94 Nasal Cannula 4.0 03/25/18 15:13 36.9 71 24 125/79 (94) 96 Nasal Cannula 4.0 Physical Exam General Appearance: + mild distress, + obese Eyes: normal inspection, sclerae normal Neck: supple, no carotid bruits Respiratory/Chest: chest non-tender, no respiratory distress Cardiovascular: regular rate, rhythm, no murmur Abdomen: normal bowel sounds, non tender, soft Extremities: + pedal edema, + swelling Neurologic/Psychiatric: alert, oriented x 3 Laboratory Results Last 24 Hours Test 03/25/18 16:25 03/25/18 20:22 03/26/18 05:14 03/26/18 07:20 Bedside Glucose 115 mg/dl 183 mg/dl 156 mg/dl White Blood Count 7.62 K/uL Red Blood Count 6.37 M/uL Hemoglobin 13.5 g/dL Hematocrit 43.6 % Mean Corpuscular Volume 68.4 fL Mean Corpuscular Hemoglobin 21.2 pg Mean Corpuscular Hemoglobin Concent 31.0 g/dl RDW Standard Deviation 54.1 fL RDW Coefficient of Variation 22.1 % Platelet Count 157 K/uL Prothrombin Time 22.0 SECONDS Prothromb Time International Ratio 2.1 Sodium Level 139 mmol/L Potassium Level 4.5 mmol/L Chloride Level 101 mmol/L Carbon Dioxide Level 33 mmol/L Anion Gap 5.0 mmol/L Blood Urea Nitrogen 93 mg/dl Creatinine 2.14 mg/dl Est Creatinine Clear Calc Drug Dose 32.5 ml/min Estimated GFR () 25.8 Estimated GFR (Non- 22.3 BUN/Creatinine Ratio 43.4 Random Glucose 186 mg/dl Calcium Level 7.9 mg/dl Test 03/26/18 11:33 Bedside Glucose 124 mg/dl Assessment and Plan (1) Respiratory failure, acute Assessment & Plan: Acute hypercapnic respiratory failure, resolved with continued bipap support, states that she wears CPAP at home with 3 liters inbubated and extubated on March 18 2018 hx of COPD chronic respiratory failure. Obstructive sleep apnea, has CPAP machine at home Patient report has CPAP machine at home, was follow-up with accounts receivable specialist in [facility] On March 19, 2018 ABG shows CO2 retention and hypercapnic, associated with lethargic mild, possible metabolic encephalopathy, has been on BiPAP, patient remains improved on BiPAP Started Solu-Medrol March 20, 2018 for the treatment of possible COPD exacerbation, continue tapering will transition to po steroids 03/26 (2) Diastolic CHF Assessment & Plan: History of diastolic heart failure, recent echo confirms, metoprolol initially held torsemide to 10 mg p.o. twice daily because of renal function, resumed along with aldactone, seems euvolemic, weight continues to trend down (3) Chronic kidney disease Assessment & Plan: acute kidney failure creatinine with stage III chronic kidney disease cr 2 upon admission, creatinine mildly elevated , remains with monitoring while on dual diuretics, will reduce torsemide to daily on 03/26 (4) Diabetes Assessment & Plan: SSI bolus insulin especially while on steroids (5) DVT prophylaxis Assessment & Plan: is on coumadin, INr is low adjust warfarin up on 03/24 Continued [facility] stay due to: home environment unsafe for pt Discharge planning: rehab hospital Problem Qualifiers (1) Chronic kidney disease: Chronic kidney disease stage: stage 3 (moderate) Qualified Codes: N18.3 - Chronic kidney disease, stage 3 (moderate)
[2018-03-26] MEDS: WARFARIN SOD 6 MG TAB PO SCH (16:57)
[2018-03-27] VITALS (10 sets, daily range): BP systolic 107–141; BP diastolic 67–82; PULSE 54–89; TEMP 36.4–37; O2SAT 91–97
[2018-03-27 06:01] LABS: INR 2.3 (0.9-1.1)
[2018-03-27] MEDS: LEVOTHYROXINE 112 MCG TAB PO SCH (06:32)
[2018-03-27] MEDS: CALCIUM 600MG + VIT D 400 IU TAB PO SCH (08:13)
[2018-03-27] MEDS: DOCUSATE SODIUM 100 MG CAP PO SCH (08:13)
[2018-03-27] MEDS: TORSEMIDE 20 MG TAB PO SCH (08:14)
[2018-03-27] MEDS: SERTRALINE HCL 50 MG TAB PO SCH (08:15)
[2018-03-27] MEDS: ROSUVASTATIN CALCIUM 10 MG TAB PO SCH (08:16)
[2018-03-27] MEDS: MAGNESIUM OXIDE 400 MG TAB PO SCH (08:16)
[2018-03-27] MEDS: FEBUXOSTAT 40 MG TAB PO SCH (08:16)
[2018-03-27] MEDS: POLYETHYLENE (MIRALAX) 17 GM PACK PO SCH (08:17)
[2018-03-27] MEDS: SPIRONOLACTONE 25 MG TAB PO SCH (08:21)
[2018-03-27] MEDS: ASPIRIN 81 MG ECTAB PO SCH (08:21)
[2018-03-27] MEDS: METOPROLOL TARTRATE 25 MG TAB PO SCH ×3 (08:22→20:55)
[2018-03-27] MEDS: BUDESONIDE/FORMOTEROL FUMARATE 160/4.5 60 PUFFS/INHALER INH SCH ×2 (08:22→20:54)
[2018-03-27] MEDS: INSULIN ASPART 100 UNITS/ML 3 ML PEN SC SCH ×4 (08:23→20:58)
[2018-03-27] MEDS: ANASTROZOLE 1 MG TAB PO SCH (08:24)
[2018-03-27] MEDS: PANTOprazole SOD 40 MG TAB PO SCH (08:25)
[2018-03-27] MEDS: PREGABALIN 150 MG CAP PO SCH ×3 (08:35→20:59)
[2018-03-27] MEDS: DICLOFENAC SOD 1% GEL 100 GM TUBE EXT SCH ×4 (09:00→20:53)
[2018-03-27] MEDS: TIOTROPIUM BROMIDE 5 PUFF/90 MCG INH INH SCH (09:21)
--- NOTE | 2018-03-27 11:53 | Progress Note ---
Subjective Date of Service: Mar 27, 2018. Subjective pt is disappointed that she does not qualify for acute rehab and now has decided to try to make it to home instead, will have home nursing and PT and check home serology Problem List Medical Problems: (1) Altered mental status Status: Acute (2) Chronic kidney disease (CKD) Status: Acute (3) Left leg cellulitis Status: Acute (4) Respiratory failure Status: Acute (5) Shortness of breath Status: Acute (6) Syncope Status: Acute Review of Systems Constitutional: + weakness, + fatigue, No fever, No chills Respiratory: + dyspnea on exertion, No cough, No shortness of breath Cardiac: No chest pain, No edema Abdomen: No pain, No nausea, No vomiting Musculoskeletal: No joint pain, No muscle pain Female : No dysuria, No urinary frequency, No hematuria Psychiatric: No depression symptoms, No anhedonism Objective Vital Signs Date Time Temp Pulse Resp B/P (MAP) Pulse Ox O2 Delivery O2 Flow Rate FiO2 03/27/18 11:31 36.8 85 20 107/67 (80) 96 03/27/18 08:00 95 Room Air 03/27/18 07:27 36.7 87 16 141/82 (101) 95 4.0 03/27/18 03:38 36.6 89 18 112/74 (87) 91 BiPAP 03/27/18 00:05 BiPAP 4.0 03/26/18 23:30 90 95 4.0 03/26/18 23:02 36.6 68 18 121/62 (81) 96 Nasal Cannula 4.0 03/26/18 20:56 76 124/72 (89) 03/26/18 19:58 36.6 84 18 118/68 (85) 96 Nasal Cannula 4.0 03/26/18 16:00 93 Nasal Cannula 4.0 BiPAP 03/26/18 15:16 36.8 79 18 110/77 (88) 93 Nasal Cannula 4.0 03/26/18 12:08 36.8 90 18 112/71 (85) 93 Nasal Cannula 4.0 Physical Exam General Appearance: WD/WN, + mild distress Eyes: normal inspection, sclerae normal Neck: supple, no JVD Respiratory/Chest: chest non-tender, + decreased breath sounds, + accessory muscle use Cardiovascular: regular rate, rhythm, no murmur Abdomen: normal bowel sounds, non tender, soft Extremities: no pedal edema, no calf tenderness Neurologic/Psychiatric: alert, oriented x 3 Skin: normal color, warm/dry Laboratory Results Last 24 Hours Test 03/26/18 16:54 03/26/18 20:22 03/27/18 05:09 03/27/18 07:24 Bedside Glucose 194 mg/dl 168 mg/dl 150 mg/dl Prothrombin Time 24.1 SECONDS Prothromb Time International Ratio 2.3 Test 03/27/18 11:23 Bedside Glucose 156 mg/dl Assessment and Plan (1) Respiratory failure, acute Assessment & Plan: Acute hypercapnic respiratory failure, resolved with continued bipap support, states that she wears CPAP at home with 3 liters intubated and extubated on March 18 2018 hx of COPD chronic respiratory failure. Obstructive sleep apnea, has CPAP machine at home Patient report has CPAP machine at home, was follow-up with surgical assistant in [facility] On March 19, 2018 ABG shows CO2 retention and hypercapnic, associated with lethargic mild, possible metabolic encephalopathy, has been on BiPAP, patient remains improved on BiPAP, will return home to CPap Started Solu-Medrol March 20, 2018 for the treatment of possible COPD exacerbation, continue tapering will transition to po steroids 03/26 (2) Diastolic CHF Assessment & Plan: History of diastolic heart failure, recent echo confirms, metoprolol initially held torsemide to 10 mg p.o. twice daily along with aldactone, labs suggest some increased CR will redue torsemide to once a day and recheck in am (3) Chronic kidney disease Assessment & Plan: acute kidney failure creatinine with stage III chronic kidney disease cr 2 upon admission, creatinine mildly elevated , remains with monitoring while on dual diuretics, will reduce torsemide to daily on 03/26 (4) Diabetes Assessment & Plan: SSI bolus insulin especially while on steroids anticipate return to home regime on discharge (5) DVT prophylaxis Assessment & Plan: is on coumadin, INr is low adjust warfarin up on 03/24 Continued [facility] stay due to: home environment unsafe for pt Discharge planning: rehab hospital Problem Qualifiers (1) Chronic kidney disease: Chronic kidney disease stage: stage 3 (moderate) Qualified Codes: N18.3 - Chronic kidney disease, stage 3 (moderate)
[2018-03-27] MEDS: NYSTATIN POWDER 15GM BTL EXT SCH ×2 (13:42→20:53)
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
[2018-03-27] MEDS: WARFARIN SOD 6 MG TAB PO SCH (16:03)
[2018-03-28] MEDS: LEVOTHYROXINE 112 MCG TAB PO SCH (05:32)
[2018-03-28 06:05] LABS: MEAN CORPUSCULAR HGB CONC 30.9 g/dl (32-36); PLATELET COUNT 161 K/uL (130-400)
[2018-03-28 06:35] LABS: CALCIUM 7.7 mg/dl (8.5-10.1); CREATININE 1.75 mg/dl (0.60-1.20)
[2018-03-28 06:45] LABS: HEMATOCRIT 44.3 % (37-47); HEMOGLOBIN 13.7 g/dL (12.0-16.0); MEAN CELL VOLUME 68.6 fL (80-100); MEAN CORPUSCULAR HEMOGLOBIN 21.2 pg (25-34); RED CELL DISTRIBUTION WIDTH CV 22.4 % (11.5-14.5); RED CELL DISTRIBUTION WIDTH SD 53.5 fL (36.4-46.3); WHITE BLOOD COUNT 10.36 K/uL (4.8-10.8)
[2018-03-28 07:16] VITALS: BP 101/67; PULSE 64; TEMP 36.8; O2SAT 93
[2018-03-28] MEDS: DOCUSATE SODIUM 100 MG CAP PO SCH (08:44)
[2018-03-28] MEDS: PANTOprazole SOD 40 MG TAB PO SCH (08:44)
[2018-03-28] MEDS: METOPROLOL TARTRATE 25 MG TAB PO SCH (08:44)
[2018-03-28] MEDS: ASPIRIN 81 MG ECTAB PO SCH (08:45)
[2018-03-28] MEDS: TIOTROPIUM BROMIDE 5 PUFF/90 MCG INH INH SCH (08:45)
[2018-03-28] MEDS: SERTRALINE HCL 50 MG TAB PO SCH (08:45)
[2018-03-28] MEDS: POLYETHYLENE (MIRALAX) 17 GM PACK PO SCH (08:46)
[2018-03-28] MEDS: MAGNESIUM OXIDE 400 MG TAB PO SCH (08:46)
[2018-03-28] MEDS: BUDESONIDE/FORMOTEROL FUMARATE 160/4.5 60 PUFFS/INHALER INH SCH (08:46)
[2018-03-28] MEDS: CALCIUM 600MG + VIT D 400 IU TAB PO SCH (08:47)
[2018-03-28] MEDS: TORSEMIDE 20 MG TAB PO SCH (08:48)
[2018-03-28] MEDS: FEBUXOSTAT 40 MG TAB PO SCH (08:48)
[2018-03-28] MEDS: ROSUVASTATIN CALCIUM 10 MG TAB PO SCH (08:48)
[2018-03-28] MEDS: SPIRONOLACTONE 25 MG TAB PO SCH (08:48)
[2018-03-28] MEDS: INSULIN ASPART 100 UNITS/ML 3 ML PEN SC SCH ×2 (08:49→12:07)
[2018-03-28] MEDS: NYSTATIN POWDER 15GM BTL EXT SCH (08:49)
[2018-03-28] MEDS: DICLOFENAC SOD 1% GEL 100 GM TUBE EXT SCH ×2 (08:50→12:07)
[2018-03-28] MEDS: ANASTROZOLE 1 MG TAB PO SCH (08:52)
[2018-03-28] MEDS: PREGABALIN 150 MG CAP PO SCH (08:58)
[2018-03-28] MEDS ORDERED: VLTG EXT (11:02)
[2018-03-28] MEDS ORDERED: SPRIN INH (11:02)
[2018-03-28] MEDS ORDERED: TORS10TA14 PO (11:02)
[2018-03-28] MEDS ORDERED: PRED10TA PO (11:02)
--- NOTE | 2018-03-28 11:06 | Discharge Instructions ---
Discharge Instructions Date of Service Mar 28, 2018. Admission Reason for Admission: FALL Discharge Discharge Diagnosis / Problem: respiratory failure, copd Discharge Goals Goal(s): Diagnostic testing, Therapeutic intervention Activity Recommendations Activity Limitations: as noted below Lifting Limitations: gradually increase as tolerated Please wear your CPAP when sleeping and napping . Instructions / Follow-Up Instructions / Follow-Up Call 911 and go to the Emergency Room if: * You have tightness or pain in your chest that does not go away with rest or Nitroglycerin * You are very short of breath even with rest Call your doctor if any of the following symptoms or problems start or get worse: * Shortness of breath or difficulty breathing * Wake up at night short of breath * Chest pain * Cough * Swelling of your hands, fee, or legs * More fatigued or tired with your normal activity * Palpitations - sudden fast heart beats WEIGHT * Weigh yourself every morning after using the bathroom. * Use the same scale. * Wear the same amount of clothing. * Write your weight down on your chart. * Call your doctor if you gain more than 2-3 pounds in 1-2 days. MEDICATIONS * Use this discharge instruction sheet for instructions. * Take your medications at the time your doctor ordered. * Do not skip a dose of your medicines. * If you miss a dose of medicine, take as soon as possible, but DO NOT DOUBLE A DOSE. * Read your medicine information when you get home. * Know all of the side effects of your medicine. * Call your doctor's office if you have any side effects. * Be sure all of your doctors know what medicine and herbs you take (including cold, flu, and herbal medicine). * Pain Medicine: If you do not get relief from your pain, please call your doctor for help. Take the following with you to your follow-up doctor appointments: * Weight Chart * Medication List * List of questions Do not drink excessive alcohol, beer or wine. Current Hospital Diet Patient's current hospital diet: AHA Diet (Heart Healthy), Diabetes Type 2 Diet please eat a low sugar diet while you are on the prednisone Discharge Diet Recommended Diet: Low Sodium Diet (2gm Na), Diabetes Type 2 Diet Pending Studies Studies pending at discharge: no Laboratory Results Hemoglobin A1c Test 03/17/18 10:15 Range/Units Estimated Average Glucose 157 mg/dl Hemoglobin A1c 7.1 H 4.5-5.6 % Medical Emergencies . Who to Call and When: Medical Emergencies: If at any time you feel your situation is an emergency, please call 911 immediately. . Non-Emergent Contact Non-Emergency issues call your: Primary Care Provider Call Non-Emergent contact if: temperature is above 101, your pain is not controlled . . "Provider Documentation" section prepared by Venkata Abad. .
--- NOTE | 2018-03-28 11:12 | Discharge Summary ---
Discharge Summary Date of Service Mar 28, 2018. Discharge Summary Admission Date: Mar 17, 2018 at 14:56 Discharge Date: Mar 28, 2018 Discharge Disposition: Home with services Principal Diagnosis: acute on chronic respiratory failure with hypoxia and hypercapnai, uti poa Medication Reconciliation New Medications: Prednisone Tab (Prednisone) 10 Mg Tab 10 MG PO UD, #42 TAB 4 a day for 4 days then 3 a day for 4 days then 2 a day for 4 days then one a day Diclofenac Sod (Voltaren) 100 Appln/100 Gm Gel 1 APPLN EXT QID, #1 TUBE Tiotropium [place] (Spiriva Handihaler) 5 Puff/90 Mcg Aerp 1 PUFF INH QAM, #1 INHALER 6 Refills Changed Medications: Torsemide (Demadex) 10 Mg Tab 10 MG PO DAILY, #30 DOSE 6 Refills (Changed from: BID; Refills: ) Continued Medications: Anastrozole (Arimidex) 1 Mg Tab 1 MG PO DAILY, TAB Aspirin (Aspirin Ec) 81 Mg Tab 81 MG PO QAM Calcium Carbonate-Vitamin D W/ (Caltrate 600 Plus) 1 Tab Tab 1 TAB PO DAILY, TAB Docusate Sodium (Docusate Sodium) 100 Mg Cap 100 MG PO DAILY Ergocalciferol (Vitamin D 34503 Unit) 50,000 Unit Cap 33152 UNIT PO WK Febuxostat (Uloric) 40 Mg Tab 40 MG PO DAILY Levothyroxine Sodium (Synthroid) 112 Mcg Tab 112 MCG PO DAILY, TAB Magnesium Oxide (Mag-Ox) 400 Mg Tab 400 MG PO DAILY, TAB Metoprolol Tartrate (Lopressor) 25 Mg Tab 25 MG PO TID for 30 Days, #90 TAB 1 Refill Mometasone Furoate-Formoterol (Dulera 100/5 Mcg) 1 Aer Aer 2 AER INH BID Pantoprazole (Protonix) 40 Mg Tab 40 MG PO DAILY Potassium Chloride (Klor-Con M20) 20 Meq Tabcr 20 MEQ PO BID for 30 Days, 1 Refill Pregabalin (Lyrica) 150 Mg Cap 150 MG PO TID, CAP Rosuvastatin Calcium (Rosuvastatin Calcium) 10 Mg Tab 10 MG PO DAILY Sertraline (Zoloft) 100 Mg Tab 150 MG PO DAILY, TAB Spironolactone (Aldactone) 25 Mg Tab 25 MG PO DAILY, TAB Warfarin Sod (Jantoven) 4 Mg Tab 8 MG PO DAILY Discontinued Medications: Aclidinium [place] (Tudorza Pressair) 400 Mcg/Act Aer INH UD Fluticasone Furoate-Vilanterol (Breo Ellipta) 1 Inh Inh 1 PUFF INH DAILY Discharge Exam Review of Systems: Constitutional: No fever, No chills, No weakness Cardiovascular: No chest pain, No orthopnea, No edema Abdomen: No pain, No nausea, No diarrhea Physical Exam: General Appearance: WD/WN, + mild distress, + obese Eyes: normal inspection, sclerae normal Neck: supple, no JVD Respiratory/Chest: chest non-tender, lungs clear, normal breath sounds Cardiovascular: regular rate, rhythm, no murmur Abdomen / GI: normal bowel sounds, non tender, soft Extremities: normal range of motion, + pedal edema Neurologic/Psychiatric: alert, oriented x 3 Hospital Course (1) Respiratory failure, acute Acute hypercapnic respiratory failure, resolved with continued bipap support, states that she wears CPAP at home with 4 liters intubated and extubated on March 18 2018 hx of COPD chronic respiratory failure. Obstructive sleep apnea, has CPAP machine at home Patient report has CPAP machine at home, was follow-up with tailman in [facility] will return home to CPap Started Solu-Medrol March 20, 2018 for the treatment of possible COPD exacerbation, continue tapering will transition to po steroids 03/26 (2) Diastolic CHF History of diastolic heart failure, recent echo confirms, metoprolol initially held torsemide to 10 mg p.o. daily along with aldactone,recommended daily weights, hf instructions given (3) Chronic kidney disease acute kidney failure creatinine with stage III chronic kidney disease cr 2 upon admission, creatinine wasmildly elevated , reduce torsemide to daily on 03/26, continued aldactone, CR did improve, will have outpt labs sent to pcp (4) Diabetes instructed pt to be on low carbohydrate diet while on prednisone (5) DVT prophylaxis Total Time Spent: Greater than 30 minutes This includes examination of the patient, discharge planning, medication reconciliation, and communication with other providers. Discharge Instructions Please refer to the electronic Patient Visit Report (Discharge Instructions) for additional information. Additional Copies To Esequiel Bran D.O. Problem Qualifiers (1) Chronic kidney disease: Chronic kidney disease stage: stage 3 (moderate) Qualified Codes: N18.3 - Chronic kidney disease, stage 3 (moderate)
[2018-03-28 11:45] VITALS: BP 113/70; PULSE 78; TEMP 36.5; O2SAT 96
== END 2018-03-28 12:30 | disposition home health service (06) | DRG 208 ==
LOC: EDBD 10:03 → C.EDB 10:04 → C.MED 14:56 → ENRESERV 15:36 → C.MSICU 22:22 → ENRESERV 03-18 14:21 → C.2T 03-18 16:04 → C.MED 03-20 23:49
PROVIDERS: ADMIT Family Medicine; ATTEND Internal Medicine
PROC: 5A1935Z Respiratory Ventilation, Less than 24 Consecutive Hours (ICD-10-PCS; principal; 2018-03-18)
PROC: 0BH18EZ Insertion of Endotracheal Airway into Trachea, Via Natural or Artificial Opening Endoscopic (ICD-10-PCS; 2018-03-18)
PROC: 0HD7XZZ Extraction of Abdomen Skin, External Approach (ICD-10-PCS; 2018-03-27)
DX: J96.22 Acute and chronic respiratory failure with hypercapnia (principal); G93.40 Encephalopathy, unspecified; E87.2 Acidosis; N39.0 Urinary tract infection, site not specified; N17.9 Acute kidney failure, unspecified; I50.32 Chronic diastolic (congestive) heart failure; Z68.43 Body mass index [BMI] 50.0-59.9, adult; I48.92 Unspecified atrial flutter; T40.4X5A Adverse effect of other synthetic narcotics, initial encounter; J96.21 Acute and chronic respiratory failure with hypoxia; M25.511 Pain in right shoulder; M25.561 Pain in right knee; M25.551 Pain in right hip; B96.89 Other specified bacterial agents as the cause of diseases classified elsewhere; T21.22XA Burn of second degree of abdominal wall, initial encounter; E11.22 Type 2 diabetes mellitus with diabetic chronic kidney disease; N18.3 Chronic kidney disease, stage 3 (moderate); J44.9 Chronic obstructive pulmonary disease, unspecified; I25.10 Atherosclerotic heart disease of native coronary artery without angina pectoris; I48.91 Unspecified atrial fibrillation; E03.9 Hypothyroidism, unspecified; E78.5 Hyperlipidemia, unspecified; E55.9 Vitamin D deficiency, unspecified; M10.9 Gout, unspecified; G47.33 Obstructive sleep apnea (adult) (pediatric); E66.01 Morbid (severe) obesity due to excess calories; F17.200 Nicotine dependence, unspecified, uncomplicated; Z79.899 Other long term (current) drug therapy; Z79.01 Long term (current) use of anticoagulants; Z79.82 Long term (current) use of aspirin; Z66 Do not resuscitate; Z91.81 History of falling; Z99.81 Dependence on supplemental oxygen; Z86.718 Personal history of other venous thrombosis and embolism; Z88.0 Allergy status to penicillin; Z88.8 Allergy status to other drugs, medicaments and biological substances; Z83.3 Family history of diabetes mellitus; W05.0XXA Fall from non-moving wheelchair, initial encounter; Y93.E8 Activity, other personal hygiene; Y99.8 Other external cause status; X11.8XXA Contact with other hot tap-water, initial encounter

== ENCOUNTER 2018-04-06 20:01 | Inpatient (IN) | payer OTHER ==
[~2018-04-06] VITALS: Ht 162.6 cm; Wt 137.3 kg
[~2018-04-06 20:01] MED LIST changes: -ACLI1AER3 INH; +ASPI81TA28 PO; -CALCTAB7 PO; -CLIN300C10 PO; +ERGO500037 PO; -LVQ750 PO; -MOME100A INH; +PRED10TA PO; +SPRIN INH; +VLTG EXT; -VNTHFA/IN INH
[2018-04-06] MEDS ORDERED: ALBUT/IPRATROP 3MG/0.5MG NEB 3 ML VIAL INH STA (20:13)
[2018-04-06] MEDS ORDERED: SODIUM CHLORIDE 0.9% 1000ML 1,000 ML IV STA ×2 (20:39→21:25)
[2018-04-06] MEDS ORDERED: VANCOMYCIN 1GM ED/ASU OMNICELL IV STA ×2 (20:47→22:18)
[2018-04-06 20:57] LABS: INR 3.3 (0.9-1.1); PTT PATIENT 32.7 SECONDS (21.0-31.0)
[2018-04-06] MEDS ORDERED: AZTREONAM IV 2,000 MG in DEXTROSE 5% 100ML 100 ML IV STA (20:59)
[2018-04-06 21:00] LABS: HEMATOCRIT 48.5 % (37-47); HEMOGLOBIN 14.9 g/dL (12.0-16.0); MEAN CELL VOLUME 71.1 fL (80-100); MEAN CORPUSCULAR HEMOGLOBIN 21.8 pg (25-34); MEAN CORPUSCULAR HGB CONC 30.7 g/dl (32-36); RED CELL DISTRIBUTION WIDTH SD 59.2 fL (36.4-46.3); WHITE BLOOD COUNT 45.15 K/uL (4.8-10.8)
[2018-04-06 21:11] LABS: ISTAT CREATININE 2.6 mg/dl (0.6-1.3); ISTAT IONIZED CALCIUM 1.04 mmol/l (1.12-1.32); ISTAT POTASSIUM 5.2 mEq/L (3.3-5.0)
[2018-04-06 21:12] LABS: BASO % 0.1 %; BASO ABS # 0.03 K/uL (0-0.2); EOS ABS # 0.01 K/uL (0-0.5); IG# 0.98 K/uL (0.00-0.02); LYMPH % 1.6 %; MONO % 3.5 %; MONO ABS # 1.59 K/uL (0.11-0.59); NEUT % 92.6 %; NEUT ABS # 41.84 K/uL (1.4-6.5); PLATELET COUNT 142 K/uL (130-400)
[2018-04-06 21:14] LABS: ALBUMIN 3.2 gm/dl (3.4-5.0); CALCIUM 8.2 mg/dl (8.5-10.1); CREATININE 2.76 mg/dl (0.60-1.20); POTASSIUM 4.9 mmol/L (3.5-5.1); TOTAL PROTEIN 6.4 gm/dl (6.4-8.2)
[2018-04-06] MEDS ORDERED: DICL1GEL12 TOP (21:56)
[2018-04-06] MEDS ORDERED: GLUCOSE 10 TABS/TUBE PO PRN (22:00)
[2018-04-06] MEDS ORDERED: DEXTROSE 50% 50 ML SYR IV PRN (22:00)
[2018-04-06] MEDS ORDERED: GLUCAGON FOR INJ 1 MG VIAL SQ PRN (22:00)
[2018-04-06] MEDS ORDERED: GLUCOSE 40% GEL 15 GM TUBE PO PRN (22:00)
[2018-04-06] MEDS ORDERED: ICU PROTOCOL FOR HYPERGLYCEMIA PRN (22:00)
[2018-04-06] MEDS ORDERED: CARBOHYDRATES FOR HYPOGLYCEMIA PO PRN (22:00)
[2018-04-06] MEDS ORDERED: CALCTAB7 PO (22:09)
[2018-04-06] MEDS ORDERED: MOME100A INH (22:13)
[2018-04-06] MEDS ORDERED: PHARMACY GLYCEMIC MGMT CONSULT PRN (22:17)
--- NOTE | 2018-04-06 22:28 | Critical Care Consultation ---
Critical Care Consultation Date of Consultation: Apr 06, 2018. Attending Physician: Nelson FRAZIER Reason for Consultation: sepsis, complicated skin and soft tissue infection, ELMER History of Present Illness History is obtained from the patient as well as supplemental history from the emergency department physician as well as the patient's daughter. Patient presents to [facility] emergency positive for pain in the distal right lower leg, she is also having worsening shortness of breath which is reportedly chronic, she denies chest pain, fevers, sputum production. Upon her arrival to the emergency department she slid out of the car onto the ground onto both knees. In the emergency department she was found to be profoundly hypotensive as well as with an elevated lactate and she was paged as a sepsis alert. Patient is known atrial fibrillation, again there is reported history of DVTs. When questioning the patient's daughter if there is no recollection of a right fibular fracture. Past Medical/Surgical History History chronic kidney disease stage III Diastolic heart failure History prolonged QTC on EKG Atrial fibrillation Oxygen dependent hypercarbic respiratory failure Family History Patient reports no known family medical history. Social History Smoking Status: Former Smoker Marital Status: Housing Status: lives with family Occupation Status: retired Allergies Coded Allergies: Melatonin (Verified Allergy, Severe, RASH, 03/17/18) Penicillins (Verified Allergy, Unknown, UNLNOWN, 03/17/18) Home Medications Scheduled Anastrozole (Arimidex), 1 MG PO DAILY Aspirin (Aspirin Ec), 81 MG PO QAM Calcium Carbonate-Vitamin D W/ (Caltrate 600 Plus), 1 TAB PO DAILY Docusate Sodium (Docusate Sodium), 100 MG PO DAILY Ergocalciferol (Vitamin D 35816 Unit), 50,000 UNIT PO WK Febuxostat (Uloric), 40 MG PO DAILY Levothyroxine Sodium (Synthroid), 112 MCG PO DAILY Magnesium Oxide (Mag-Ox), 400 MG PO DAILY Metoprolol Tartrate (Lopressor), 25 MG PO TID Mometasone Furoate-Formoterol (Dulera 100/5 Mcg), 2 AER INH BID Pantoprazole (Protonix), 40 MG PO DAILY Potassium Chloride (Klor-Con M20), 20 MEQ PO BID Prednisone Tab (Prednisone), 10 MG PO UD Pregabalin (Lyrica), 150 MG PO TID Rosuvastatin Calcium (Rosuvastatin Calcium), 10 MG PO DAILY Sertraline (Zoloft), 150 MG PO DAILY Spironolactone (Aldactone), 25 MG PO DAILY Tiotropium Coburn (Spiriva Handihaler), 1 PUFF INH QAM Torsemide (Demadex), 10 MG PO DAILY Warfarin Sod (Jantoven), 8 MG PO DAILY Scheduled PRN Diclofenac Sodium (Topical) (Voltaren 1% Top Gel), 1 APPLN TOP QID PRN for Pain Current Inpatient Medications Current Inpatient Medications Medications (Trade) Dose Ordered Sig/Isidoro Route Start Time Stop Time Status Last Admin Dose Admin Sodium Chloride 1,000 ml @ 999 mls/hr Q1H1M STAT IV 04/06/18 20:39 04/06/18 21:39 04/06/18 20:40 999 MLS/HR Aztreonam 2000 mg/ Dextrose 110 ml @ 100 mls/hr NOW STAT IV 04/06/18 20:59 04/06/18 22:04 04/06/18 21:10 100 MLS/HR Sodium Chloride 1,000 ml @ 999 mls/hr Q1H1M STAT IV 04/06/18 21:25 04/06/18 22:25 Review of Systems A 10 point review of systems has been obtained and is otherwise negative. Constitutional: + weakness, + fatigue, No fever Respiratory: + shortness of breath, + dyspnea on exertion, + dyspnea at rest Cardiovascular: No chest pain, No orthopnea Abdomen: No pain, No nausea Musculoskeletal: + problem reported (Pain of the right lower extremity) Physical Exam Date Time Temp Pulse Resp B/P (MAP) Pulse Ox O2 Delivery O2 Flow Rate FiO2 04/06/18 21:06 103 24 71/45 97 04/06/18 21:03 61/46 04/06/18 21:00 104 24 97 04/06/18 20:56 121/56 04/06/18 20:47 78 Nasal Cannula 4.0 04/06/18 20:45 102 16 04/06/18 20:30 36.7 105 22 61/37 92 Nasal Cannula 4.0 04/06/18 20:30 109 22 79 General Appearance: uncomfortable, in pain, mild distress Head: normocephalic, atraumatic Eyes: PERRLA ENT: other (Patent airway) Neck: normal range of motion, no tenderness, no stridor, other (Redundant soft tissues) Respiratory: other (Difficult exam, distant heart sounds) Cardiovasular: abnormal pulses (1+4 extremities), other (Difficult exam) Abdomen: non tender, other (Difficult exam) Genitourinary - Female: other (Greco catheter present) Lower Extremities: other (Cellulitis and hyperemia of the right lower extremity ) Edema: Bilateral LE (1+) Neuro: alert, oriented x 3 Psychiatric: normal affect Laboratory Results Last 24 Hours Test 04/06/18 20:25 04/06/18 20:51 04/06/18 20:56 04/06/18 20:58 White Blood Count 45.15 K/uL Red Blood Count 6.82 M/uL Hemoglobin 14.9 g/dL Hematocrit 48.5 % Mean Corpuscular Volume 71.1 fL Mean Corpuscular Hemoglobin 21.8 pg Mean Corpuscular Hemoglobin Concent 30.7 g/dl Platelet Count 142 K/uL Neutrophils (%) (Auto) 92.6 % Lymphocytes (%) (Auto) 1.6 % Monocytes (%) (Auto) 3.5 % Eosinophils (%) (Auto) 0.0 % Basophils (%) (Auto) 0.1 % Neutrophils # (Auto) 41.84 K/uL Lymphocytes # (Auto) 0.70 K/uL Monocytes # (Auto) 1.59 K/uL Eosinophils # (Auto) 0.01 K/uL Basophils # (Auto) 0.03 K/uL RDW Standard Deviation 59.2 fL RDW Coefficient of Variation 25.0 % Immature Granulocyte % (Auto) 2.2 % Immature Granulocyte # (Auto) 0.98 K/uL Toxic Granulation 1+ Platelet Estimate DECREASED Hypochromasia PRESENT Anisocytosis PRESENT Prothrombin Time 33.7 SECONDS Prothromb Time International Ratio 3.3 Activated Partial Thromboplast Time 32.7 SECONDS Partial Thromboplastin Ratio 1.3 Sodium Level 139 mmol/L Potassium Level 4.9 mmol/L Chloride Level 105 mmol/L Carbon Dioxide Level 25 mmol/L Anion Gap 9.0 mmol/L 17.0 mmol/L Blood Urea Nitrogen 59 mg/dl Creatinine 2.76 mg/dl Est Creatinine Clear Calc Drug Dose 27.0 ml/min Estimated GFR () 19.0 Estimated GFR (Non- 16.4 BUN/Creatinine Ratio 21.2 Random Glucose 106 mg/dl Calcium Level 8.2 mg/dl Total Bilirubin 0.8 mg/dl Direct Bilirubin 0.2 mg/dl Aspartate Amino Transf (AST/SGOT) 19 U/L Alanine Aminotransferase (ALT/SGPT) 45 U/L Alkaline Phosphatase 73 U/L Total Protein 6.4 gm/dl Albumin 3.2 gm/dl Bedside Lactic Acid Venous 4.25 mmol/L Bedside Hemoglobin 16.7 g/dl Bedside Hematocrit 49 % Bedside Sodium 141 mEq/L Bedside Potassium 5.2 mEq/L Bedside Chloride 101 mEq/L Bedside Total CO2 29 mEq/l Bedside Blood Urea Nitrogen 56 mg/dl Bedside Creatinine 2.6 mg/dl Bedside Glucose (other) 103 mg/dl Bedside Ionized Calcium (Jesus) 1.04 mmol/l Bedside Troponin I 0.070 ng/ml Test 04/06/18 21:01 Arterial Blood pH 7.32 Arterial Blood Partial Pressure CO2 53 mmHg Arterial Blood Partial Pressure O2 168 mm/Hg Arterial Blood HCO3 27 mmol/L Arterial Blood Oxygen Saturation 99.0 % Arterial Blood Base Excess 0.1 mEq/L Arterial Blood Gas Delivery 15L Yovani Test POS Diagnostic Results BILATERAL LOWER EXTREMITY VENOUS DOPPLER CLINICAL HISTORY: History of deep venous thrombus. Worsening swelling. COMPARISON STUDY: Bilateral lower extremity venous Doppler July 03, 2017. TECHNIQUE: Sonography of the deep venous system of the bilateral lower extremities was performed. Compression and augmentation were evaluated. FINDINGS: The bilateral common femoral, superficial femoral and popliteal veins were compressible. Augmentation was normal. Flow was shown within the deep calf vessels although evaluation of the calf vessels was suboptimal due to lower extremity edema. IMPRESSION: No evidence of deep venous thrombus within the bilateral lower extremities. Electronically signed by: Lucio Burnette M.D. 04/06/2018 10:36 PM Dictated Date/Time: 04/06/2018 10:34 PM RIGHT LOWER EXTREMITY ARTERIAL DOPPLER ULTRASOUND CLINICAL HISTORY: Evaluate for arterial occlusion. COMPARISON STUDY: Bilateral lower extremity arterial Doppler ultrasound March 19, 2016. TECHNIQUE: Ankle to brachial indices were not obtained due to portable exam. Grayscale and color and duplex Doppler sonography of the arterial system of the right lower extremity was performed. FINDINGS: Note was made of moderate atherosclerotic plaque. Biphasic flow was noted within the right common femoral artery. No flow was identified within the proximal right superficial femoral artery which is similar to exam of March 19, 2016. This suggests vessel occlusion with distal reconstitution. Flow distal to this suspected site of occlusion is dampened and monophasic as before. There is monophasic flow within the mid to distal right superficial femoral artery as well as the right popliteal, anterior tibial or posterior tibial and dorsalis pedis vessels. Monophasic flow is noted within the right peroneal artery. IMPRESSION: 1. Moderate atherosclerotic plaque within the right lower extremity. 2. Suspected occlusion of the proximal right superficial femoral artery with distal reconstitution which is similar to ultrasound of March 19, 2016. Flow distal to this suspected site of occlusion is dampened and monophasic, as before. No significant change since previous exam. Electronically signed by: Lucio Burnette M.D. 04/06/2018 10:41 PM Dictated Date/Time: 04/06/2018 10:36 PM The status of this report is Signed. Draft = Not yet reviewed or approved by Radiologist. Signed = Reviewed and approved by Radiologist. Per my interpretation of a plain film of the right tib-fib there is a new fibular head fracture compared to previous obtained March 17, 2018 Assessment & Plan Reason Critically Ill: 72-year-old female with sepsis secondary to complicated skin and soft tissue infection PLAN: Neuro: Pain -Tylenol as needed -Avoid narcotics given history of hypercarbic respiratory failure and likely obstructive sleep apnea Resp: COPD: Oxygen dependent Continued tobacco abuse Chronic hypercarbic respiratory failure Likely has obstructive sleep apnea versus obesity hypoventilation syndrome CV: History coronary artery disease Permanent A. fib on Coumadin History of acute on chronic diastolic heart failure -Echo reviewed 03/18/2018 Prolonged QT on EKG March 17, 2018 -Avoid QT prolonging medications Fluids/Renal: Chronic kidney disease stage III Acute kidney injury: Baseline creatinine likely 1.2-1.3 -Cautious volume expansion utilizing CVP ID: Severe sepsis with septic shock -Presumptive source is right lower extremity -Severe nonpurulent skin and soft tissue infection -History of urinary tract infections -Urine culture, blood culture, x-ray of right lower extremity to exclude gas -Vancomycin, Zosyn, clindamycin GI/Nutrition: N.p.o. Morbid obesity -BMI 49.4 Heme: DVT prophylaxis: Therapeutic INR -Holding additional Coumadin at this time Leukemoid reaction -Possible sepsis versus fracture versus combined effect Endocrine: Hemoglobin A1c 7.1 -ICU hyperglycemia protocol On steroids from previous admission -Hydrocortisone bolus for possible relative adrenal insufficiency Musculoskeletal Right fibular head fracture with minimal displacement and angulation -Posterior splint -Orthopedic consult in the morning Vascular access: Right internal jugular triple-lumen catheter Code Status: DO NOT RESUSCITATE in event of cardiac arrest, patient okay with short-term intubation, not comfortable with tracheostomy or prolonged ventilatory dependence. Patient was consented for mechanical ventilation and intubation, bronchoscopy, arterial line, central venous access. During my discussion she had capacity and understood the risks and benefits. She verbally consented and opted for the patient's daughter to sign. The consents were also completed and from the patient's daughter who is also aware of her CODE STATUS and agrees. I have personally spent 95 minutes of critical care time in the direct management of this patient. This is a life/limb threatening event. This includes time spent evaluating patient, direct bedside care, chart review, placing orders, interpretation of diagnostic studies, discussion with consultants, patient, and/or family members regarding treatment decisions, as well as other required patient management activities. This time is exclusive of all separately billable procedures, and teaching time and separate from and in addition to any other critical care service time.
[2018-04-06] MEDS ORDERED: VANCOMYCIN CONSULT ACTIVE PRN (22:30)
[2018-04-06] MEDS ORDERED: PIPERACILL/TAZOBAC CONSULT ACTIVE PRN (22:30)
--- NOTE | 2018-04-06 22:30 | Procedure Note ---
Procedure Note Procedure Date Apr 06, 2018. Central Line Procedure time out: side/site verified, patient ID confirmed, sterile procedure used Consent obtained: written Time of procedure: 22:30 Performed by: attending Indications: poor venous access, central drug admin., CVP monitoring Contraindications: coagulopathy (INR 3.3) Prep: chlorhexadine prep, sterile drape, sterile procedures used Anesthesia: lidocaine 1% without epi Volume anesthetic (ml's): 3 Central line lumen: triple Central line location: internal jugular (R) Additional details: ultrasound guidance, Selinger technique used, line sutured CXR: appropriate position, no pneumothorax Complications: other (Small hematoma of neck) Patient tolerated procedure: well Post-procedure vital signs: reviewed and stable Comments: This central venous access was particularly complicated and required multiple needle passes and significant manipulation for the catheter to thread adequately , the difficulty arose secondary to the patient's body habitus and significant redundant subcutaneous tissue making passage of the catheter from the skin surface into the vein rather difficult. Throughout the entire procedure I rechecked to make sure the guidewire remained within the patent vein. Critical Care Medicine Point of Care Bedside Ultrasound Procedure: Procedural Ultrasound Procedure Date: April 06, 2018 Indication: Central venous access while therapeutically anticoagulated Attending: Romie Harkins DO Artery AND Vein visualized: Y Patent vein: Y Guidewire or Short Catheter seen in vein prior to dilation: y Line confirmed in Vein with ultrasound: Y Lung Sliding on side of attempt (if applicable): NA If no lung sliding or not obtained has CXR been ordered: reviewed Impression: Successful cannulation of right internal jugular vein Images obtained are saved for permanent record
--- NOTE | 2018-04-06 22:37 | DIAGNOSTIC IMAGING REPORT ---
BILATERAL LOWER EXTREMITY VENOUS DOPPLER CLINICAL HISTORY: History of deep venous thrombus. Worsening swelling. COMPARISON STUDY: Bilateral lower extremity venous Doppler July 03, 2017. TECHNIQUE: Sonography of the deep venous system of the bilateral lower extremities was performed. Compression and augmentation were evaluated. FINDINGS: The bilateral common femoral, superficial femoral and popliteal veins were compressible. Augmentation was normal. Flow was shown within the deep calf vessels although evaluation of the calf vessels was suboptimal due to lower extremity edema. IMPRESSION: No evidence of deep venous thrombus within the bilateral lower extremities. Electronically signed by: Lucio Burnette M.D. 04/06/2018 10:36 PM Dictated Date/Time: 04/06/2018 10:34 PM
--- NOTE | 2018-04-06 22:42 | DIAGNOSTIC IMAGING REPORT ---
RIGHT LOWER EXTREMITY ARTERIAL DOPPLER ULTRASOUND CLINICAL HISTORY: Evaluate for arterial occlusion. COMPARISON STUDY: Bilateral lower extremity arterial Doppler ultrasound March 19, 2016. TECHNIQUE: Ankle to brachial indices were not obtained due to portable exam. Grayscale and color and duplex Doppler sonography of the arterial system of the right lower extremity was performed. FINDINGS: Note was made of moderate atherosclerotic plaque. Biphasic flow was noted within the right common femoral artery. No flow was identified within the proximal right superficial femoral artery which is similar to exam of March 19, 2016. This suggests vessel occlusion with distal reconstitution. Flow distal to this suspected site of occlusion is dampened and monophasic as before. There is monophasic flow within the mid to distal right superficial femoral artery as well as the right popliteal, anterior tibial or posterior tibial and dorsalis pedis vessels. Monophasic flow is noted within the right peroneal artery. IMPRESSION: 1. Moderate atherosclerotic plaque within the right lower extremity. 2. Suspected occlusion of the proximal right superficial femoral artery with distal reconstitution which is similar to ultrasound of March 19, 2016. Flow distal to this suspected site of occlusion is dampened and monophasic, as before. No significant change since previous exam. Electronically signed by: Lucio Burnette M.D. 04/06/2018 10:41 PM Dictated Date/Time: 04/06/2018 10:36 PM
[2018-04-06] MEDS ORDERED: LIDOCAINE HCL 1% 20 ML VIAL ONE (22:57)
--- NOTE | 2018-04-06 23:12 | EMERGENCY ROOM VISIT NOTE ---
History Report prepared by Wilian: Ozzy Thurman Under the Supervision of: Dr. Venkata Sexton M.D. First contact with patient: 20:05 Chief Complaint: FALL Stated Complaint: CELLULITIS R FOOT, FALL History of Present Illness The patient is a 72 year old female who presents to the Emergency Room with complaints of distal right leg pain near the ankle that started today. The pain is aggravated with contact and she is also short of breath, although this is chronic. Getting out of the car in a parking lot the patient did slide to the ground. She did not fall or injure herself slid down. No reported head injury or headache. The patient reports she is on 4L of oxygen at home and also takes Coumadin, Lasix, and Prednisone. She has a history of COPD, hypertension, blood clots in her legs, a triple bypass, and stage 3 renal failure. She denies chest pain, fever, and vomiting. Source of History: patient Onset: Today Position: ankle (left) Symptom Intensity: moderate Quality: other (Swelling) Modifying Factors (Worsening): other (Contact ) Associated Symptoms: + SOB, No fevers, No chest pain, No vomiting Review of Systems See HPI for pertinent positives & negatives. A total of 10 systems reviewed and were otherwise negative. Past Medical & Surgical Medical Problems: (1) Acute kidney injury (2) CHF (congestive heart failure) (3) Chronic kidney disease (4) Deep vein blood clot of right lower extremity (5) Diabetes (6) Diastolic CHF (7) DVT prophylaxis (8) Fall (9) Prolonged Q-T interval on ECG (10) Respiratory failure, acute (11) Sepsis (12) Volume overload Surgical Problems: (1) Previous back surgery Family History Patient reports no known family medical history. Social History Smoking Status: Heavy Tobacco Smoker Marital Status: Housing Status: lives with family Occupation Status: retired Current/Historical Medications Scheduled Anastrozole (Arimidex), 1 MG PO DAILY Aspirin (Aspirin Ec), 81 MG PO QAM Calcium Carbonate-Vitamin D W/ (Caltrate 600 Plus), 1 TAB PO DAILY Docusate Sodium (Docusate Sodium), 100 MG PO DAILY Ergocalciferol (Vitamin D 24141 Unit), 50,000 UNIT PO WK Febuxostat (Uloric), 40 MG PO DAILY Levothyroxine Sodium (Synthroid), 112 MCG PO DAILY Magnesium Oxide (Mag-Ox), 400 MG PO DAILY Metoprolol Tartrate (Lopressor), 25 MG PO TID Mometasone Furoate-Formoterol (Dulera 100/5 Mcg), 2 AER INH BID Pantoprazole (Protonix), 40 MG PO DAILY Potassium Chloride (Klor-Con M20), 20 MEQ PO BID Prednisone Tab (Prednisone), 10 MG PO UD Pregabalin (Lyrica), 150 MG PO TID Rosuvastatin Calcium (Rosuvastatin Calcium), 10 MG PO DAILY Sertraline (Zoloft), 150 MG PO DAILY Spironolactone (Aldactone), 25 MG PO DAILY Tiotropium Gleason (Spiriva Handihaler), 1 PUFF INH QAM Torsemide (Demadex), 10 MG PO DAILY Warfarin Sod (Jantoven), 8 MG PO DAILY Scheduled PRN Diclofenac Sodium (Topical) (Voltaren 1% Top Gel), 1 APPLN TOP QID PRN for Pain Allergies Coded Allergies: Melatonin (Verified Allergy, Severe, RASH, 03/17/18) Penicillins (Verified Allergy, Unknown, UNLNOWN, 03/17/18) Physical Exam Vital Signs Date Time Temp Pulse Resp B/P (MAP) Pulse Ox O2 Delivery O2 Flow Rate FiO2 04/06/18 21:59 36.5 04/06/18 21:46 94 19 85/49 100 04/06/18 21:31 92 16 94/46 100 04/06/18 21:17 85 24 78/46 100 04/06/18 21:13 97 14 75/49 100 04/06/18 21:06 103 24 71/45 97 04/06/18 21:03 61/46 04/06/18 21:00 104 24 97 04/06/18 20:56 121/56 04/06/18 20:47 78 Nasal Cannula 4.0 04/06/18 20:45 102 16 04/06/18 20:30 36.7 105 22 61/37 92 Nasal Cannula 4.0 04/06/18 20:30 109 22 79 Physical Exam Constitutional: Vital signs reviewed. Eyes: Pupils are equal round reactive to light. Conjunctiva are noninjected. ENT: Pharynx is clear without erythema or exudate. Mucous membranes are moist. Neck supple without meningeal signs. Respiratory: Breath sounds are equal bilaterally. Diffused bilateral wheezing. Cardiovascular: Tachycardic. Regular rhythm. GI: Soft, nondistended and nontender. Bowel sounds are present. Musculoskeletal: Bilateral edema to lower extremity. Right leg is purplish red from above the ankle down to the toes with delayed capillary refill, no palpable pulses; the foot is cold to the touch but the ankle is warm to touch, small abrasion laterally above the ankle. Integumentary: No cyanosis. Neurological: The patient is awake and alert. No focal deficits. Psychiatric: Normal affect. Medical Decision & Procedures ER Provider Diagnostic Interpretation: Radiology results as stated below per my review and the radiologist's interpretation: BILATERAL LOWER EXTREMITY VENOUS DOPPLER CLINICAL HISTORY: History of deep venous thrombus. Worsening swelling. COMPARISON STUDY: Bilateral lower extremity venous Doppler July 03, 2017. TECHNIQUE: Sonography of the deep venous system of the bilateral lower extremities was performed. Compression and augmentation were evaluated. FINDINGS: The bilateral common femoral, superficial femoral and popliteal veins were compressible. Augmentation was normal. Flow was shown within the deep calf vessels although evaluation of the calf vessels was suboptimal due to lower extremity edema. IMPRESSION: No evidence of deep venous thrombus within the bilateral lower extremities. Electronically signed by: Lucio Burnette M.D. 04/06/2018 10:36 PM Dictated Date/Time: 04/06/2018 10:34 PM RIGHT LOWER EXTREMITY ARTERIAL DOPPLER ULTRASOUND CLINICAL HISTORY: Evaluate for arterial occlusion. COMPARISON STUDY: Bilateral lower extremity arterial Doppler ultrasound March 19, 2016. TECHNIQUE: Ankle to brachial indices were not obtained due to portable exam. Grayscale and color and duplex Doppler sonography of the arterial system of the right lower extremity was performed. FINDINGS: Note was made of moderate atherosclerotic plaque. Biphasic flow was noted within the right common femoral artery. No flow was identified within the proximal right superficial femoral artery which is similar to exam of March 19, 2016. This suggests vessel occlusion with distal reconstitution. Flow distal to this suspected site of occlusion is dampened and monophasic as before. There is monophasic flow within the mid to distal right superficial femoral artery as well as the right popliteal, anterior tibial or posterior tibial and dorsalis pedis vessels. Monophasic flow is noted within the right peroneal artery. IMPRESSION: 1. Moderate atherosclerotic plaque within the right lower extremity. 2. Suspected occlusion of the proximal right superficial femoral artery with distal reconstitution which is similar to ultrasound of March 19, 2016. Flow distal to this suspected site of occlusion is dampened and monophasic, as before. No significant change since previous exam. Electronically signed by: Lucio Burnette M.D. 04/06/2018 10:41 PM Dictated Date/Time: 04/06/2018 10:36 PM Laboratory Results 04/06/18 20:25 Red Blood Count 6.82, Mean Corpuscular Volume 71.1, Mean Corpuscular Hemoglobin 21.8, Mean Corpuscular Hemoglobin Concent 30.7, Neutrophils (%) (Auto) 92.6, Lymphocytes (%) (Auto) 1.6, Monocytes (%) (Auto) 3.5, Eosinophils (%) (Auto) 0.0 , Basophils (%) (Auto) 0.1, Neutrophils # (Auto) 41.84, Lymphocytes # (Auto) 0.70, Monocytes # (Auto) 1.59, Eosinophils # (Auto) 0.01, Basophils # (Auto) 0.03 04/06/18 20:25 Test 04/06/18 20:25 04/06/18 20:51 04/06/18 20:56 04/06/18 20:58 White Blood Count 45.15 K/uL (4.8-10.8) Red Blood Count 6.82 M/uL (4.2-5.4) Hemoglobin 14.9 g/dL (12.0-16.0) Hematocrit 48.5 % (37-47) Mean Corpuscular Volume 71.1 fL (80-100) Mean Corpuscular Hemoglobin 21.8 pg (25-34) Mean Corpuscular Hemoglobin Concent 30.7 g/dl (32-36) Platelet Count 142 K/uL (130-400) Neutrophils (%) (Auto) 92.6 % Lymphocytes (%) (Auto) 1.6 % Monocytes (%) (Auto) 3.5 % Eosinophils (%) (Auto) 0.0 % Basophils (%) (Auto) 0.1 % Neutrophils # (Auto) 41.84 K/uL (1.4-6.5) Lymphocytes # (Auto) 0.70 K/uL (1.2-3.4) Monocytes # (Auto) 1.59 K/uL (0.11-0.59) Eosinophils # (Auto) 0.01 K/uL (0-0.5) Basophils # (Auto) 0.03 K/uL (0-0.2) RDW Standard Deviation 59.2 fL (36.4-46.3) RDW Coefficient of Variation 25.0 % (11.5-14.5) Immature Granulocyte % (Auto) 2.2 % Immature Granulocyte # (Auto) 0.98 K/uL (0.00-0.02) Toxic Granulation 1+ Platelet Estimate DECREASED Hypochromasia PRESENT Anisocytosis PRESENT Prothrombin Time 33.7 SECONDS (9.0-12.0) Prothromb Time International Ratio 3.3 (0.9-1.1) Activated Partial Thromboplast Time 32.7 SECONDS (21.0-31.0) Partial Thromboplastin Ratio 1.3 Est Creatinine Clear Calc Drug Dose 27.0 ml/min Estimated GFR () 19.0 Estimated GFR (Non- 16.4 BUN/Creatinine Ratio 21.2 (10-20) Calcium Level 8.2 mg/dl (8.5-10.1) Total Bilirubin 0.8 mg/dl (0.2-1) Direct Bilirubin 0.2 mg/dl (0-0.2) Aspartate Amino Transf (AST/SGOT) 19 U/L (15-37) Alanine Aminotransferase (ALT/SGPT) 45 U/L (12-78) Alkaline Phosphatase 73 U/L (45-117) Total Protein 6.4 gm/dl (6.4-8.2) Albumin 3.2 gm/dl (3.4-5.0) Bedside Lactic Acid Venous 4.25 mmol/L (0.90-1.70) Bedside Hemoglobin 16.7 g/dl (12.0-16.0) Bedside Hematocrit 49 % (37-47) Bedside Sodium 141 mEq/L (135-144) Bedside Potassium 5.2 mEq/L (3.3-5.0) Bedside Chloride 101 mEq/L (101-112) Bedside Total CO2 29 mEq/l (24-31) Anion Gap 17.0 mmol/L (16-25) Bedside Blood Urea Nitrogen 56 mg/dl (7-18) Bedside Creatinine 2.6 mg/dl (0.6-1.3) Bedside Glucose (other) 103 mg/dl (70-99) Bedside Ionized Calcium (Jesus) 1.04 mmol/l (1.12-1.32) Bedside Troponin I 0.070 ng/ml (0-0.045) Test 04/06/18 21:01 04/06/18 22:25 04/06/18 22:30 Arterial Blood pH 7.32 (7.35-7.45) Arterial Blood Partial Pressure CO2 53 mmHg (35-46) Arterial Blood Partial Pressure O2 168 mm/Hg (80-95) Arterial Blood HCO3 27 mmol/L (19-24) Arterial Blood Oxygen Saturation 99.0 % (90-95) Arterial Blood Base Excess 0.1 mEq/L (-9-1.8) Arterial Blood Gas Delivery 15L Yovani Test POS (POS) Urine Color YELLOW Urine Appearance CLEAR (CLEAR) Urine pH 5.0 (4.5-7.5) Urine Specific [place] 1.009 (1.000-1.030) Urine Protein NEG (NEG) Urine Glucose (UA) NEG (NEG) Urine Ketones NEG (NEG) Urine Occult Blood NEG (NEG) Urine Nitrite NEG (NEG) Urine Bilirubin NEG (NEG) Urine Urobilinogen NEG (NEG) Urine Leukocyte Esterase NEG (NEG) Laboratory results as reviewed by me. Medications Administered Medications (Trade) Dose Ordered Sig/Isidoro Route Start Time Stop Time Status Last Admin Dose Admin Albuterol/ Ipratropium (Duoneb) 3 ml NOW STAT INH 04/06/18 20:13 04/06/18 20:15 DC 04/06/18 20:15 3 ML Sodium Chloride 1,000 ml @ 999 mls/hr Q1H1M STAT IV 04/06/18 20:39 04/06/18 21:39 DC 04/06/18 20:40 999 MLS/HR Vancomycin HCl (Vancomycin 1gm Ed/Asu Omnicell) 1 gm NOW STAT IV 04/06/18 20:47 04/06/18 20:48 DC 04/06/18 21:05 1 GM Aztreonam 2000 mg/ Dextrose 110 ml @ 100 mls/hr NOW STAT IV 04/06/18 20:59 04/06/18 22:04 DC 04/06/18 21:10 100 MLS/HR Sodium Chloride 1,000 ml @ 999 mls/hr Q1H1M STAT IV 04/06/18 21:25 04/06/18 22:25 DC 04/06/18 21:25 999 MLS/HR ECG Per My Interpretation Indication: SOB/dyspnea Rate (beats per minute): 102 Rhythm: atrial flutter Findings: other (Variablle block, No ST elevation, No PVC) ED Course 2006: The patient was evaluated in room A2. A complete history and physical exam was performed. 2012: Albuterol/ Ipratropium 3ml INH 2034: The patients blood pressure dropped to 61/39 and she states she feels weak. The daughter says that she had a problem with low blood pressure last time she was admitted. The patient is currently getting fluids and the daughter consented to a central line if necessary. 2038: Sodium Chloride 1000ml @ 999mls/hr IV 2046: Vancomycin HCl 1gm IV 2049: The patient was moved to B1 trauma room and her percent oxygen saturation was dropping into the 70s. She is getting put on Bipap. The patient is still awake and talking. 2056: 400cc of normal saline was given. The patient's blood pressure is 121/56 and her oxygen saturation is 98 on a nonrebreather. 2058: Aztreonam 2000mg/Dextrose 110ml @ 100mls/hr IV 2103: I spoke with Dr. Damon - [facility] Hospitalist about accepting the patient. 2105: I spoke with Dr. Harkins - Liquor Department Manager about hospitalizing the patient in ICU. 2123: The patient's blood pressure dropped to 78/46 so she is getting a second liter, ultrasound is in there now 2127:fleet technician says it looks like there is a monophasic flow to the foot, but he was not fully finished with the scan. Dr. Harkins is in the room talking to the patient and her family. 2139: US Doppler is being preformed and Dr. Harkins is planning on putting in a central line because her pressure is still dropping. Medical Decision This is a 72-year-old female presents with right leg pain and swelling. Differential diagnosis includes cellulitis, arterial insufficiency, arterial occlusion, DVT, sepsis. I did perform a limited focused review of portions of the patient's old chart on the electronic medical record. The patient has had one recent pertinent visit to this hospital in February. She was admitted for acute on chronic respiratory failure and UTI. She was discharged on March 28. I did evaluate the patient as noted above. Patient appears to have a cellulitis to her right leg. Her foot is cold and I was concerned about arterial insufficiency or occlusion. IV access was established. The patient was placed on a continuous adobe flex developer. The patient was hypotensive. She was given a liter normal saline IV. She did have significant improvement of her blood pressure. I did order and personally review the patient's 12-lead EKG as described above. I did order blood cultures. I did treat her with IV vancomycin and aztreonam. I did order and review the patient's blood work as noted in the electronic medical record. Lactic acid is significantly elevated. Her white blood cell count is over 40,000. I did order Doppler arterial ultrasound of the right leg. I did review the images myself as well as the radiology report as described above. Her blood pressure dropped again and she was given additional normal saline. I did consult the hospitalist and clinical trial specialist. Dr. Harkins did evaluate the patient in the ED. He did place a central line. The patient was admitted to the ICU. Medication Reconcilliation Current Medication List: was personally reviewed by me Blood Pressure Screening Patient's blood pressure: Low blood pressure Consults Time Called: 2102 Consulting Physician: Dr. Damon - [facility] Hospitalist Returned Call: [address] Damon of [facility] Hospitalist. We discussed the patient and tests results. Additional Consults: Time Called: 2105 Consulted Physician: Dr. Harkins - Liquor Department Manager Returned Call: 2105 Additional Comments: I spoke with Dr. Harkins of [facility] - Liquor Department Manager. We discussed the patient and tests results. The patient will be further evaluated by Dr. Harkins. Impression Primary Impression: Sepsis Additional Impressions: Respiratory failure, acute Cellulitis of right leg Acute kidney injury Anticoagulated on Coumadin Septic shock Critical Care I have personally spent 40 minutes of critical care time in the direct management of this patient. This includes bedside care, interpretation of diagnostic studies, and testing, discussion with consultants, patient, and family members, and other required patient management activities. This 40 minutes is in excess of all separately billable procedures. Scribe Attestation The scribe's documentation has been prepared under my direct and personally reviewed by me in its entirety. I confirm that the note above accurately reflects all work, treatment, procedures, and medical decision making performed by me. Departure Information Dispostion Being Evaluated By Hospitalist Esequiel Salazar,D.O. (PCP) Forms HOME CARE DOCUMENTATION FORM, IMPORTANT VISIT INFORMATION Patient Instructions My [facility] Problem Qualifiers Primary Impression: Sepsis Sepsis type: sepsis due to unspecified organism Qualified Codes: A41.9 - Sepsis, unspecified organism Additional Impressions: Respiratory failure, acute Respiratory failure complication: hypoxia Qualified Codes: J96.01 - Acute respiratory failure with hypoxia
[2018-04-06] MEDS: NOREPINEPHRINE BIT INJ 8 MG in DEXTROSE 5% 500ML 500 ML IV PRN (23:25)
[2018-04-07] VITALS (43 sets, daily range): BP systolic 75–122; BP diastolic 40–81; PULSE 52–101; TEMP 36.4–36.9; O2SAT 92–100; Ht 162.6 cm; Wt 137.3 kg
[2018-04-07] MEDS ORDERED: HYDROCORTISONE IV 100 MG in SYRINGE 0 ML IV ONE (01:00)
[2018-04-07] MEDS ORDERED: VANCOMYCIN IV 1,500 MG in SODIUM CHLORIDE 0.9% 500ML 500 ML IV ONE (01:00)
[2018-04-07] MEDS: PIPERACILL/TAZOBAC IV 4.5 GM in DEXTROSE 5% 100ML 100 ML IV SCH ×2 (01:08→09:19)
[2018-04-07] MEDS: CLINDAMYCIN IV 600 MG in DEXTROSE 5% 50ML 50 ML IV SCH ×2 (02:51→09:35)
--- NOTE | 2018-04-07 04:49 | History and Physical ---
History & Physical Date & Time of Service: Apr 07, 2018 at 04:45 Chief Complaint: Sepsis Primary Care Physician: Esequiel Bran D.O. History of Present Illness Source: hospital records Patient is a 72yo female with history of COPD on home O2, CAD, CKD III, Depression, DM, HLP, Hypothyroidism, JONATHON and frequent falls presenting with pain in the RLE as well as shortness of breath. Patient was recently admitted from March 17 - March 28 after a fall onto her knees at home. During that hospital stay she developed hypercarbic respiratory failure after receiving pain medication requiring brief intubation and ICU stay. This evening the patient fell on her knees upon arrival to the ER tonight as well. Upon arrival she was found to be tachycardic, hypotensive with hypoxia on room air. ER Course: Patient had CVC placed by Dr. Harkins in the ER Vancomycin Aztreonam Hydrocortisone NSS Duoneb x 1 Past Medical/Surgical History Medical Problems: CKD Stage III Atrial flutter Cellulitis right foot CHF- diastolic Chronic hypoxic - hypercapnic respiratory failure on home O2 COPD DVT of right lower extremity Diabetes JONATHON Prolonged QT interval Hyperlipidemia Hypothyroidism Depression Surgical Problems: (1) Previous back surgery Family History Patient reports no known family medical history. Social History Smoking Status: Current Every Day Smoker Smokeless Tobacco Use: No Alcohol Use: none Drug Use: none Marital Status: Housing status: lives with family Occupational Status: retired Allergies Coded Allergies: Melatonin (Verified Allergy, Severe, RASH, 03/17/18) Penicillins (Verified Allergy, Unknown, UNLNOWN, 03/17/18) Home Medications Scheduled Anastrozole (Arimidex), 1 MG PO DAILY Aspirin (Aspirin Ec), 81 MG PO QAM Calcium Carbonate-Vitamin D W/ (Caltrate 600 Plus), 1 TAB PO DAILY Docusate Sodium (Docusate Sodium), 100 MG PO DAILY Ergocalciferol (Vitamin D 93284 Unit), 50,000 UNIT PO WK Febuxostat (Uloric), 40 MG PO DAILY Levothyroxine Sodium (Synthroid), 112 MCG PO DAILY Magnesium Oxide (Mag-Ox), 400 MG PO DAILY Metoprolol Tartrate (Lopressor), 25 MG PO TID Mometasone Furoate-Formoterol (Dulera 100/5 Mcg), 2 AER INH BID Pantoprazole (Protonix), 40 MG PO DAILY Potassium Chloride (Klor-Con M20), 20 MEQ PO BID Prednisone Tab (Prednisone), 10 MG PO UD Pregabalin (Lyrica), 150 MG PO TID Rosuvastatin Calcium (Rosuvastatin Calcium), 10 MG PO DAILY Sertraline (Zoloft), 150 MG PO DAILY Spironolactone (Aldactone), 25 MG PO DAILY Tiotropium Home (Spiriva Handihaler), 1 PUFF INH QAM Torsemide (Demadex), 10 MG PO DAILY Warfarin Sod (Jantoven), 8 MG PO DAILY Scheduled PRN Diclofenac Sodium (Topical) (Voltaren 1% Top Gel), 1 APPLN TOP QID PRN for Pain Review of Systems Per HPI. Remainder of 10 point ROS negative Physical Exam Vital Signs Date Time Temp Pulse Resp B/P (MAP) Pulse Ox O2 Delivery O2 Flow Rate FiO2 04/07/18 04:00 CPAP 04/07/18 03:15 68 20 89/51 (64) 93 04/07/18 02:45 71 20 96/60 (72) 94 CPAP 6.0 04/07/18 02:15 65 20 90/67 (75) 93 CPAP 6.0 04/07/18 02:00 82 20 77/57 (64) 94 CPAP 6.0 04/07/18 01:58 91 94 6.0 04/07/18 01:45 77 24 98/58 (71) 96 CPAP 6.0 04/07/18 01:15 79 22 107/57 (74) 100 Non-Rebreather 15.0 04/07/18 00:45 83 24 88/45 (59) 99 Non-Rebreather 15.0 04/07/18 00:15 84 26 95/60 (72) 100 Non-Rebreather 15.0 04/07/18 00:01 36.9 95 26 95/60 100 Non-Rebreather 15.0 04/06/18 23:47 84 20 94/71 99 04/06/18 23:35 84 20 94/71 99 04/06/18 23:30 85 20 /56 99 04/06/18 23:15 88 15 71/32 100 04/06/18 23:00 93 15 80/43 90 04/06/18 22:45 82 17 67/44 100 04/06/18 22:30 82 13 73/45 100 04/06/18 22:15 91 20 89/49 100 04/06/18 22:00 96 25 94/49 98 04/06/18 21:59 36.5 04/06/18 21:46 94 19 85/49 100 04/06/18 21:31 92 16 94/46 100 04/06/18 21:17 85 24 78/46 100 04/06/18 21:13 97 14 75/49 100 04/06/18 21:06 103 24 71/45 97 04/06/18 21:03 61/46 04/06/18 21:00 104 24 97 04/06/18 20:56 121/56 04/06/18 20:47 78 Nasal Cannula 4.0 04/06/18 20:45 102 16 04/06/18 20:30 36.7 105 22 61/37 92 Nasal Cannula 4.0 04/06/18 20:30 109 22 79 General: patient resting comfortably in bed, ill in appearance Skin: warm, dry, intact, cellulitis on RLE, redness/warmth HEENT: NC/AT, PERRL, anicteric sclera, conjunctiva without injection, nares patent, moist mucus membranes, no oropharyngeal lesions, neck supple, trachea midline, no thyromegaly, no LAD, right IJ TLC in place Heart: +S1/S2, regular, no m/r/g, distant heart sounds Lungs: equal air entry bilaterally, no rales/rhonchi/wheezes Abdomen: soft, NT/ND, no masses/organomegaly/ascites Extremities: warm, well perfused, cellulitis of RLE Neuro: nonfocal Diagnostics Laboratory Results Results Past 24 Hours Test 04/06/18 20:25 04/06/18 20:51 04/06/18 20:56 04/06/18 20:58 Range/Units White Blood Count 45.15 4.8-10.8 K/uL Red Blood Count 6.82 4.2-5.4 M/uL Hemoglobin 14.9 12.0-16.0 g/dL Hematocrit 48.5 37-47 % Mean Corpuscular Volume 71.1 80-100 fL Mean Corpuscular Hemoglobin 21.8 25-34 pg Mean Corpuscular Hemoglobin Concent 30.7 32-36 g/dl Platelet Count 142 130-400 K/uL Neutrophils (%) (Auto) 92.6 % Lymphocytes (%) (Auto) 1.6 % Monocytes (%) (Auto) 3.5 % Eosinophils (%) (Auto) 0.0 % Basophils (%) (Auto) 0.1 % Neutrophils # (Auto) 41.84 1.4-6.5 K/uL Lymphocytes # (Auto) 0.70 1.2-3.4 K/uL Monocytes # (Auto) 1.59 0.11-0.59 K/uL Eosinophils # (Auto) 0.01 0-0.5 K/uL Basophils # (Auto) 0.03 0-0.2 K/uL RDW Standard Deviation 59.2 36.4-46.3 fL RDW Coefficient of Variation 25.0 11.5-14.5 % Immature Granulocyte % (Auto) 2.2 % Immature Granulocyte # (Auto) 0.98 0.00-0.02 K/uL Toxic Granulation 1+ Platelet Estimate DECREASED Hypochromasia PRESENT Anisocytosis PRESENT Prothrombin Time 33.7 9.0-12.0 SECONDS Prothromb Time International Ratio 3.3 0.9-1.1 Activated Partial Thromboplast Time 32.7 21.0-31.0 SECONDS Partial Thromboplastin Ratio 1.3 Sodium Level 139 136-145 mmol/L Potassium Level 4.9 3.5-5.1 mmol/L Chloride Level 105 98-107 mmol/L Carbon Dioxide Level 25 21-32 mmol/L Anion Gap 9.0 17.0 16-25 mmol/L Blood Urea Nitrogen 59 7-18 mg/dl Creatinine 2.76 0.60-1.20 mg/dl Est Creatinine Clear Calc Drug Dose 27.0 ml/min Estimated GFR () 19.0 Estimated GFR (Non- 16.4 BUN/Creatinine Ratio 21.2 10-20 Random Glucose 106 70-99 mg/dl Calcium Level 8.2 8.5-10.1 mg/dl Total Bilirubin 0.8 0.2-1 mg/dl Direct Bilirubin 0.2 0-0.2 mg/dl Aspartate Amino Transf (AST/SGOT) 19 15-37 U/L Alanine Aminotransferase (ALT/SGPT) 45 12-78 U/L Alkaline Phosphatase 73 45-117 U/L Total Protein 6.4 6.4-8.2 gm/dl Albumin 3.2 3.4-5.0 gm/dl Bedside Lactic Acid Venous 4.25 0.90-1.70 mmol/L Bedside Hemoglobin 16.7 12.0-16.0 g/dl Bedside Hematocrit 49 37-47 % Bedside Sodium 141 135-144 mEq/L Bedside Potassium 5.2 3.3-5.0 mEq/L Bedside Chloride 101 101-112 mEq/L Bedside Total CO2 29 24-31 mEq/l Bedside Blood Urea Nitrogen 56 7-18 mg/dl Bedside Creatinine 2.6 0.6-1.3 mg/dl Bedside Glucose (other) 103 70-99 mg/dl Bedside Ionized Calcium (Jesus) 1.04 1.12-1.32 mmol/l Bedside Troponin I 0.070 0-0.045 ng/ml Test 04/06/18 21:01 04/06/18 22:25 04/06/18 23:12 04/07/18 00:46 Range/Units Arterial Blood pH 7.32 7.35-7.45 Arterial Blood Partial Pressure CO2 53 35-46 mmHg Arterial Blood Partial Pressure O2 168 80-95 mm/Hg Arterial Blood HCO3 27 19-24 mmol/L Arterial Blood Oxygen Saturation 99.0 90-95 % Arterial Blood Base Excess 0.1 -9-1.8 mEq/L Arterial Blood Gas Delivery 15L Yovani Test POS POS Urine Color YELLOW Urine Appearance CLEAR CLEAR Urine pH 5.0 4.5-7.5 Urine Specific [place] 1.009 1.000-1.030 Urine Protein NEG NEG Urine Glucose (UA) NEG NEG Urine Ketones NEG NEG Urine Occult Blood NEG NEG Urine Nitrite NEG NEG Urine Bilirubin NEG NEG Urine Urobilinogen NEG NEG Urine Leukocyte Esterase NEG NEG Bedside Lactic Acid Venous 0.95 0.90-1.70 mmol/L Lactic Acid Level 1.4 0.4-2.0 mmol/L Test 04/07/18 01:04 04/07/18 04:44 Range/Units Bedside Glucose 120 70-90 mg/dl Microbiology Results 04/06/18 Blood Culture, Received Pending 04/06/18 Blood Culture, Received Pending 04/06/18 MRSA DNA Surveillance Screen - Final, Complete Specimen Negative for MRSA by DNA Probe 04/06/18 Urine Culture, Received Pending Diagnostic Radiology Closed fibular head fracture on x-ray EKG Atrial flutter with variable A-V block. No evidence of acute ischemia. Unchanged from prior study March 17, 2018 Impression Assessment and Plan 72yo C female with multiple medical problems presenting with sepsis and leg pain Neuro: Nonfocal exam. History of depression -Continue Zoloft 150mg daily -Continue Lyrica 150mg daily -Pain control with Tylenol -Cautious use of narcotics given history of JONATHON/hypercarbic respiratory failure Cardiovascular: patient hypotensive, tachycardic most likely secondary to sepsis from skin/soft tissue infection. History of HTN, CAD, Atrial fib/flutter , prolonged QT, diastolic CHF. INR=3.3 -Continue ASA and Crestor -Hold Metoprolol, Aldactone and Torsemide in setting of infection -Hold Coumadin Pulmonary: Adequate oxygenation on supplemental O2, presently on CPAP HS. No respiratory distress. History of chronic hypoxic/hypercarbic respiratory failure on home O2, active tobacco abuse and JONATHON -Continue supplemental O2, CPAP qHS -Continue Spiriva -Nebs PRN GI: NPO -Continue Protonix -Colace PRN : patient with CKD Stage 3 - baseline Cr of 1.3 -Continue to monitor BUN, Cr, electrolytes and UOP -Renal dosing where appropriate -Avoid nephrotoxic agents Heme: On Coumadin anticoagulation for Afib/flutter and h/o DVT. INR=3.3. Marked leukocytosis WBC= 45.15, neutrophil predominant most likely secondary to underlying infection vs steroid use -Holding Coumadin for now -Continue to monitor ID: Septic shock most likely secondary to skin and soft tissue infection. No evidence of necrotizing fasciitis on clinical exam. Patient provided adequate IVF resuscitation with continued hypotension -Blood and urine cultures sent and pending -Empiric antibiotic coverage with Vancomycin, Zosyn and Clindamycin -Levophed to maintain MAP > 65 -Surgical evaluation Endocrine: Patient with history of DM, AIC=7.1, Hypothyroidism -Insulin coverage per protocol -Continue to monitor -Hydrocortisone IV provided in ER for possible adrenal insufficiency, patient on PO prednisone -Continue Synthroid 112mcg po daily -Continue Prednisone Right fibular head fracture -Surgical evaluation F/E/N- Right triple lumen CVC placed by Dr. Harkins, monitor electrolytes and replete as needed, continue PO Magnesium supplementation, NPO for now Ppx - Patient on Coumadin, INR=3.3, Protonix Code - DNR Dispo - Admit to MICU Advanced Directives Existing Living Will: No Existing Power of Director It Project: No Resuscitation Status DNR VTE Prophylaxis Will order VTE Prophylaxis: Yes
[2018-04-07 05:19] LABS: INR 3.3 (0.9-1.1)
[2018-04-07 05:26] LABS: HEMATOCRIT 42.4 % (37-47); HEMOGLOBIN 12.7 g/dL (12.0-16.0); MEAN CELL VOLUME 70.9 fL (80-100); MEAN CORPUSCULAR HEMOGLOBIN 21.2 pg (25-34); PLATELET COUNT 130 K/uL (130-400); RED CELL DISTRIBUTION WIDTH CV 24.8 % (11.5-14.5); RED CELL DISTRIBUTION WIDTH SD 58.8 fL (36.4-46.3); WHITE BLOOD COUNT 50.17 K/uL (4.8-10.8)
[2018-04-07 05:31] LABS: CREATININE 2.2 mg/dl (0.60-1.20); PHOSPHORUS 4.4 mg/dl (2.5-4.9); POTASSIUM 5.6 mmol/L (3.5-5.1)
[2018-04-07 05:32] LABS: BASO % 0.1 %; BASO ABS # 0.04 K/uL (0-0.2); IG# 0.52 K/uL (0.00-0.02); LYMPH % 1.2 %; LYMPH ABS # 0.59 K/uL (1.2-3.4); MONO % 1.8 %; NEUT % 95.9 %; NEUT ABS # 48.12 K/uL (1.4-6.5)
[2018-04-07] MEDS: INSULIN ASPART 100 UNITS/ML 3 ML PEN SC SCH ×4 (06:00→21:00)
[2018-04-07] MEDS: LEVOTHYROXINE 112 MCG TAB PO SCH (06:00)
--- NOTE | 2018-04-07 06:33 | DIAGNOSTIC IMAGING REPORT ---
R KNEE 1 OR 2 VIEWS ROUTINE, R TIBIA/FIBULA 2 VIEWS ROUTINE HISTORY: 72 years-old Female fracture acute pain and swelling of the right lower leg COMPARISON: None available TECHNIQUE: 2 views of the right knee and 2 views of the right tibia and fibula FINDINGS: KNEE: Bones are mildly demineralized. Chondrocalcinosis about the knee with mild tricompartmental marginal spurring. Trace knee joint effusion. Peripheral arterial calcifications are noted. There is acute mildly comminuted fracture of the proximal metadiaphyseal fibula with 5 mm lateral and volar displacement. Mild associated soft tissue swelling. TIBIA/FIBULA: There is acute mildly comminuted fracture of the proximal metadiaphyseal fibula with 5 mm lateral and volar displacement with mild associated soft tissue swelling. Tibia appears intact. Soft tissue swelling about the lower leg and ankle. ORIF changes of the ankle. Degenerative changes of the hindfoot. IMPRESSION: Acute comminuted and mildly displaced fracture of the proximal fibular metadiaphysis with soft tissue swelling of the lower leg and ankle. The above report was generated using voice recognition software. It may contain grammatical, syntax or spelling errors. Electronically signed by: Brandin Dietz M.D. 04/07/2018 6:32 AM Dictated Date/Time: 04/07/2018 6:29 AM
--- NOTE | 2018-04-07 06:36 | DIAGNOSTIC IMAGING REPORT ---
ANKLE MIN 3 VIEWS ROUTINE HISTORY: 72 years-old Female fracture acute pain and swelling of the right ankle COMPARISON: Right tibia and fibula radiographs of same day TECHNIQUE: 3 views of the right ankle FINDINGS: Moderate soft tissue prominence of the lower leg, ankle and foot which is most pronounced laterally. There are ORIF changes about the ankle with cannulated screw and K wire of the medial malleolus. Cannulated screw extending anterior to posterior is noted within the talus. Increased sclerosis with partial articular collapse involves the talus. Subchondral sclerosis with marginal osteophytosis involves the ankle and subtalar joint as well as the talonavicular articulation. Surgical clips project over the medial tissues of the lower leg. No large joint effusion. No acute fracture or dislocation. IMPRESSION: 1. No acute fracture or dislocation. 2. ORIF changes about the ankle as detailed above. Increased sclerosis with partial articular collapse of the talus may reflect underlying avascular necrosis. The above report was generated using voice recognition software. It may contain grammatical, syntax or spelling errors. Electronically signed by: Brandin Dietz M.D. 04/07/2018 6:35 AM Dictated Date/Time: 04/07/2018 6:32 AM
--- NOTE | 2018-04-07 06:46 | DIAGNOSTIC IMAGING REPORT ---
CHEST ONE VIEW PORTABLE HISTORY: 72 years-old Female sob eval for pna acute shortness of breath COMPARISON: Chest radiograph 03/18/2018, chest CT 03/17/2018 TECHNIQUE: Portable AP view of the chest FINDINGS: Cardiac silhouette is enlarged. Calcification of the aorta. Right internal jugular central venous catheter is noted with distal tip terminating within the region of the proximal SVC. Prior median sternotomy and CABG. Mild emphysematous changes redemonstrated without pneumothorax, pleural effusion or overt pulmonary edema. Mild right hemidiaphragmatic elevation with subsegmental bibasilar opacities. Degenerative changes of the shoulders and spine. IMPRESSION: 1. Cardiomegaly without overt pulmonary edema. 2. Emphysema. 3. Subsegmental bibasilar opacities favor atelectasis. The above report was generated using voice recognition software. It may contain grammatical, syntax or spelling errors. Electronically signed by: Brandin Dietz M.D. 04/07/2018 6:45 AM Dictated Date/Time: 04/07/2018 6:42 AM
--- NOTE | 2018-04-07 06:50 | Critical Care Progress Note ---
Critical Care Progress Note Date of Service Apr 07, 2018. ICU Day ICU Day Number: [address] Harkins Subjective No overnight events Objective General Appearance: Resting comfortably Head: normocephalic, atraumatic Eyes: PERRLA ENT: CPAP mask in place Neck: normal range of motion, no tenderness, no stridor, other (Redundant soft tissues) Respiratory: other (Difficult exam, distant heart sounds) Cardiovasular: abnormal pulses (1+4 extremities), other (Difficult exam) Abdomen: non tender, other (Difficult exam) Genitourinary - Female: other (Greco catheter present) Lower Extremities: other (Cellulitis and hyperemia of the right lower extremity ) Edema: Bilateral LE (1+) Neuro: alert, oriented x 3 Psychiatric: normal affect Assessment & Plan Reason Critically Ill: 72-year-old female with sepsis secondary to complicated skin and soft tissue infection PLAN: Neuro: Pain -Tylenol as needed -Avoid narcotics given history of hypercarbic respiratory failure and likely obstructive sleep apnea Resp: COPD: Oxygen dependent Continued tobacco abuse Chronic hypercarbic respiratory failure Likely has obstructive sleep apnea versus obesity hypoventilation syndrome CV: History coronary artery disease Permanent A. fib on Coumadin History of acute on chronic diastolic heart failure -Echo reviewed 03/18/2018: Limited echo pending Prolonged QT on EKG March 17, 2018 -Avoid QT prolonging medications Fluids/Renal: Chronic kidney disease stage III Acute kidney injury: Baseline creatinine likely 1.2-1.3 -Cautious volume expansion utilizing CVP: Current CVP 15 ID: Severe sepsis with septic shock -Presumptive source is right lower extremity -Severe nonpurulent skin and soft tissue infection -History of urinary tract infections -Urine culture, blood culture, x-ray of right lower extremity to exclude gas -Vancomycin, Zosyn, clindamycin GI/Nutrition: N.p.o. Morbid obesity -BMI 49.4 Heme: DVT prophylaxis: Therapeutic INR -Holding additional Coumadin at this time Leukemoid reaction -Possible sepsis versus fracture versus combined effect Endocrine: Hemoglobin A1c 7.1 -ICU hyperglycemia protocol On steroids from previous admission -Hydrocortisone bolus 1 for possible relative adrenal insufficiency Musculoskeletal Right fibular head fracture with minimal displacement and angulation -Posterior splint -Orthopedic consult in the morning Vascular access: Right internal jugular triple-lumen catheter Code Status: DO NOT RESUSCITATE in event of cardiac arrest, patient okay with short-term intubation, not comfortable with tracheostomy or prolonged ventilatory dependence. Patient was consented for mechanical ventilation and intubation, bronchoscopy, arterial line, central venous access I have personally spent 40 minutes of critical care time in the direct management of this patient. This is a life/limb threatening event. This includes time spent evaluating patient, direct bedside care, chart review, placing orders, interpretation of diagnostic studies, discussion with consultants, patient, and/or family members regarding treatment decisions, as well as other required patient management activities. This time is exclusive of all separately billable procedures, and teaching time and separate from and in addition to any other critical care service time. Consults & Procedures Consultants: Nephrology Orthopedics Procedures: Right IJ CVL 04/06/18 Data Medications: Current Inpatient Medications Medications (Trade) Dose Ordered Sig/Isidoro Route Start Time Stop Time Status Last Admin Dose Admin Acetaminophen (Tylenol Tab) 650 mg Q4H PRN PO 04/06/18 22:00 05/06/18 21:59 Norepinephrine Bitartrate 8 mg/ Dextrose 508 ml @ 0 mls/hr Q0M PRN IV 04/06/18 21:47 05/06/18 21:46 04/06/18 23:25 26.8 MLS/HR Miscellaneous Information (Icu Protocol For Hyperglycemia) 1 ea PRN PRN N/A 04/06/18 22:00 04/08/18 21:59 Insulin Aspart (novoLOG ASPART) SLIDING SCALE IF C... Q6 SC 04/07/18 06:00 05/07/18 05:59 Glucose (Glucose 40% Gel) 15-30 GRAMS 15 GRAMS... UD PRN PO 04/06/18 22:00 05/06/18 21:59 Glucose (Glucose Chew Tab) 4-8 Tablets 4 Tabl... UD PRN PO 04/06/18 22:00 05/06/18 21:59 Dextrose (Dextrose 50% 50ML Syringe) 25-50ML 25ML FOR ... UD PRN IV 04/06/18 22:00 05/06/18 21:59 Glucagon (Glucagon Inj) 1 mg UD PRN SQ 04/06/18 22:00 05/06/18 21:59 Carbohydrates (Carbohydrates For Hypoglycemia) 15-30 GRAMS 15 grams if BSG 54-69... UD PRN PO 04/06/18 22:00 05/06/18 21:59 Miscellaneous Information (Consult Glycemic Management Pharmacy) 1 ea UD PRN N/A 04/06/18 22:17 05/06/18 22:16 Anastrozole (Arimidex Tab) 1 mg DAILY PO 04/07/18 09:00 05/07/18 08:59 Aspirin (Ecotrin Tab) 81 mg QAM PO 04/07/18 09:00 05/07/18 08:59 Docusate Sodium (coLACE CAP) 100 mg DAILY PO 04/07/18 09:00 05/07/18 08:59 Levothyroxine Sodium (Synthroid Tab) 112 mcg DAILYBB PO 04/07/18 06:00 05/07/18 05:59 Magnesium Oxide (Mag-Ox Tab) 400 mg DAILY PO 04/07/18 09:00 05/07/18 08:59 Pantoprazole Sodium (Protonix Tab) 40 mg DAILY PO 04/07/18 09:00 05/07/18 08:59 Prednisone (PredniSONE TAB) 10 mg UD PO 04/06/18 22:00 05/06/18 21:59 UNV Pregabalin (Lyrica Cap) 150 mg TID PO 04/07/18 09:00 05/07/18 08:59 Rosuvastatin Calcium (Crestor Tab) 10 mg DAILY PO 04/07/18 09:00 05/07/18 08:59 Sertraline HCl (Zoloft Tab) 150 mg DAILY PO 04/07/18 09:00 05/07/18 08:59 Tiotropium Dixon (Spiriva Handihaler Inhaler) 1 puff QAM INH 04/07/18 09:00 05/07/18 08:59 Vancomycin HCl (Consult) 1 ea UD PRN N/A 04/06/18 22:30 05/06/18 22:29 Miscellaneous Information (Consult) 1 ea UD PRN N/A 04/06/18 22:30 05/06/18 22:29 Piperacillin Sod/ Tazobactam Sod 4.5 gm/Dextrose 120 ml @ 30 mls/hr Q8H IV 04/07/18 01:00 04/17/18 00:59 04/07/18 01:08 30 MLS/HR Clindamycin Phosphate 600 mg/ Dextrose 54 ml @ 100 mls/hr Q8H IV 04/07/18 02:00 04/17/18 01:59 Vancomycin HCl 1500 mg/Sodium Chloride 530 ml @ 200 mls/hr ONE ONCE IV 04/07/18 01:00 04/07/18 03:38 04/07/18 01:08 200 MLS/HR Vital Signs: Date Time Temp Pulse Resp B/P (MAP) Pulse Ox O2 Delivery O2 Flow Rate FiO2 04/07/18 02:15 65 20 90/67 (75) 93 CPAP 6.0 04/07/18 02:00 82 20 77/57 (64) 94 CPAP 6.0 04/07/18 01:58 91 94 6.0 04/07/18 01:45 77 24 98/58 (71) 96 CPAP 6.0 04/07/18 01:15 79 22 107/57 (74) 100 Non-Rebreather 15.0 04/07/18 00:45 83 24 88/45 (59) 99 Non-Rebreather 15.0 04/07/18 00:15 84 26 95/60 (72) 100 Non-Rebreather 15.0 04/07/18 00:01 36.9 95 26 95/60 100 Non-Rebreather 15.0 04/06/18 23:47 84 20 94/71 99 04/06/18 23:35 84 20 94/71 99 04/06/18 23:30 85 20 /56 99 04/06/18 23:15 88 15 71/32 100 04/06/18 23:00 93 15 80/43 90 04/06/18 22:45 82 17 67/44 100 04/06/18 22:30 82 13 73/45 100 18 22:15 91 20 89/49 100 04/06/18 22:00 96 25 94/49 98 04/06/18 21:59 36.5 04/06/18 21:46 94 19 85/49 100 04/06/18 21:31 92 16 94/46 100 04/06/18 21:17 85 24 78/46 100 04/06/18 21:13 97 14 75/49 100 04/06/18 21:06 103 24 71/45 97 04/06/18 21:03 61/46 04/06/18 21:00 104 24 97 04/06/18 20:56 121/56 04/06/18 20:47 78 Nasal Cannula 4.0 04/06/18 20:45 102 16 04/06/18 20:30 36.7 105 22 61/37 92 Nasal Cannula 4.0 04/06/18 20:30 109 22 79 Laboratory Results: Last 24 Hours Test 04/06/18 20:25 04/06/18 20:51 04/06/18 20:56 04/06/18 20:58 White Blood Count 45.15 K/uL Red Blood Count 6.82 M/uL Hemoglobin 14.9 g/dL Hematocrit 48.5 % Mean Corpuscular Volume 71.1 fL Mean Corpuscular Hemoglobin 21.8 pg Mean Corpuscular Hemoglobin Concent 30.7 g/dl Platelet Count 142 K/uL Neutrophils (%) (Auto) 92.6 % Lymphocytes (%) (Auto) 1.6 % Monocytes (%) (Auto) 3.5 % Eosinophils (%) (Auto) 0.0 % Basophils (%) (Auto) 0.1 % Neutrophils # (Auto) 41.84 K/uL Lymphocytes # (Auto) 0.70 K/uL Monocytes # (Auto) 1.59 K/uL Eosinophils # (Auto) 0.01 K/uL Basophils # (Auto) 0.03 K/uL RDW Standard Deviation 59.2 fL RDW Coefficient of Variation 25.0 % Immature Granulocyte % (Auto) 2.2 % Immature Granulocyte # (Auto) 0.98 K/uL Toxic Granulation 1+ Platelet Estimate DECREASED Hypochromasia PRESENT Anisocytosis PRESENT Prothrombin Time 33.7 SECONDS Prothromb Time International Ratio 3.3 Activated Partial Thromboplast Time 32.7 SECONDS Partial Thromboplastin Ratio 1.3 Sodium Level 139 mmol/L Potassium Level 4.9 mmol/L Chloride Level 105 mmol/L Carbon Dioxide Level 25 mmol/L Anion Gap 9.0 mmol/L 17.0 mmol/L Blood Urea Nitrogen 59 mg/dl Creatinine 2.76 mg/dl Est Creatinine Clear Calc Drug Dose 27.0 ml/min Estimated GFR () 19.0 Estimated GFR (Non- 16.4 BUN/Creatinine Ratio 21.2 Random Glucose 106 mg/dl Calcium Level 8.2 mg/dl Total Bilirubin 0.8 mg/dl Direct Bilirubin 0.2 mg/dl Aspartate Amino Transf (AST/SGOT) 19 U/L Alanine Aminotransferase (ALT/SGPT) 45 U/L Alkaline Phosphatase 73 U/L Total Protein 6.4 gm/dl Albumin 3.2 gm/dl Bedside Lactic Acid Venous 4.25 mmol/L Bedside Hemoglobin 16.7 g/dl Bedside Hematocrit 49 % Bedside Sodium 141 mEq/L Bedside Potassium 5.2 mEq/L Bedside Chloride 101 mEq/L Bedside Total CO2 29 mEq/l Bedside Blood Urea Nitrogen 56 mg/dl Bedside Creatinine 2.6 mg/dl Bedside Glucose (other) 103 mg/dl Bedside Ionized Calcium (Jesus) 1.04 mmol/l Bedside Troponin I 0.070 ng/ml Test 04/06/18 21:01 04/06/18 22:25 04/06/18 23:12 04/07/18 00:46 Arterial Blood pH 7.32 Arterial Blood Partial Pressure CO2 53 mmHg Arterial Blood Partial Pressure O2 168 mm/Hg Arterial Blood HCO3 27 mmol/L Arterial Blood Oxygen Saturation 99.0 % Arterial Blood Base Excess 0.1 mEq/L Arterial Blood Gas Delivery 15L Yovani Test POS Urine Color YELLOW Urine Appearance CLEAR Urine pH 5.0 Urine Specific [place] 1.009 Urine Protein NEG Urine Glucose (UA) NEG Urine Ketones NEG Urine Occult Blood NEG Urine Nitrite NEG Urine Bilirubin NEG Urine Urobilinogen NEG Urine Leukocyte Esterase NEG Bedside Lactic Acid Venous 0.95 mmol/L Lactic Acid Level 1.4 mmol/L Test 04/07/18 01:04 Bedside Glucose 120 mg/dl
[2018-04-07 06:52] LABS: HEMOGLOBIN A1C 7.4 % (4.5-5.6)
[2018-04-07] MEDS: ACETAMINOPHEN 325 MG TAB PO PRN ×2 (07:38→15:11)
[2018-04-07] MEDS ORDERED: PREGABALIN 150 MG CAP PO SCH (09:00)
[2018-04-07] MEDS: TIOTROPIUM BROMIDE 5 PUFF/90 MCG INH INH SCH (09:15)
[2018-04-07] MEDS: SERTRALINE HCL 100 MG TAB PO SCH (09:16)
[2018-04-07] MEDS: PANTOprazole SOD 40 MG TAB PO SCH (09:16)
[2018-04-07] MEDS: ASPIRIN 81 MG ECTAB PO SCH (09:16)
[2018-04-07] MEDS: DOCUSATE SODIUM 100 MG CAP PO SCH (09:16)
[2018-04-07] MEDS: ROSUVASTATIN CALCIUM 10 MG TAB PO SCH (09:16)
[2018-04-07] MEDS: MAGNESIUM OXIDE 400 MG TAB PO SCH (09:17)
[2018-04-07] MEDS: ANASTROZOLE 1 MG TAB PO SCH (09:20)
[2018-04-07] MEDS ORDERED: SODIUM POLYST. SULF SUSP 15G/60ML PO STA (10:05)
--- NOTE | 2018-04-07 10:05 | Pharmacy Progress Note ---
Pharmacy Antibiotic Consult Date of Service: Apr 07, 2018. Pharmacy Dosing Scope Pharmacy is consulted to initiate vancomycin/zosyn IV dosing therapy, order appropriate labs and adjust drug dose/frequency. Subjective The patient is a 72 year old female admitted on Apr 06, 2018 at 21:49. Objective Height (Feet): 5 Height (Inches): 4.00 Weight (Kilograms): 138.800 Lab Results (24hrs): Test 04/06/18 20:25 04/06/18 20:51 04/06/18 20:56 04/06/18 20:58 White Blood Count 45.15 K/uL (4.8-10.8) Red Blood Count 6.82 M/uL (4.2-5.4) Hemoglobin 14.9 g/dL (12.0-16.0) Hematocrit 48.5 % (37-47) Mean Corpuscular Volume 71.1 fL (80-100) Mean Corpuscular Hemoglobin 21.8 pg (25-34) Mean Corpuscular Hemoglobin Concent 30.7 g/dl (32-36) Platelet Count 142 K/uL (130-400) Neutrophils (%) (Auto) 92.6 % Lymphocytes (%) (Auto) 1.6 % Monocytes (%) (Auto) 3.5 % Eosinophils (%) (Auto) 0.0 % Basophils (%) (Auto) 0.1 % Neutrophils # (Auto) 41.84 K/uL (1.4-6.5) Lymphocytes # (Auto) 0.70 K/uL (1.2-3.4) Monocytes # (Auto) 1.59 K/uL (0.11-0.59) Eosinophils # (Auto) 0.01 K/uL (0-0.5) Basophils # (Auto) 0.03 K/uL (0-0.2) RDW Standard Deviation 59.2 fL (36.4-46.3) RDW Coefficient of Variation 25.0 % (11.5-14.5) Immature Granulocyte % (Auto) 2.2 % Immature Granulocyte # (Auto) 0.98 K/uL (0.00-0.02) Toxic Granulation 1+ Platelet Estimate DECREASED Hypochromasia PRESENT Anisocytosis PRESENT Prothrombin Time 33.7 SECONDS (9.0-12.0) Prothromb Time International Ratio 3.3 (0.9-1.1) Activated Partial Thromboplast Time 32.7 SECONDS (21.0-31.0) Partial Thromboplastin Ratio 1.3 Sodium Level 139 mmol/L (136-145) Potassium Level 4.9 mmol/L (3.5-5.1) Chloride Level 105 mmol/L (98-107) Carbon Dioxide Level 25 mmol/L (21-32) Blood Urea Nitrogen 59 mg/dl (7-18) Creatinine 2.76 mg/dl (0.60-1.20) Est Creatinine Clear Calc Drug Dose 27.0 ml/min Estimated GFR () 19.0 Estimated GFR (Non- 16.4 BUN/Creatinine Ratio 21.2 (10-20) Random Glucose 106 mg/dl (70-99) Calcium Level 8.2 mg/dl (8.5-10.1) Total Bilirubin 0.8 mg/dl (0.2-1) Direct Bilirubin 0.2 mg/dl (0-0.2) Aspartate Amino Transf (AST/SGOT) 19 U/L (15-37) Alanine Aminotransferase (ALT/SGPT) 45 U/L (12-78) Alkaline Phosphatase 73 U/L (45-117) Total Protein 6.4 gm/dl (6.4-8.2) Albumin 3.2 gm/dl (3.4-5.0) Bedside Lactic Acid Venous 4.25 mmol/L (0.90-1.70) Bedside Hemoglobin 16.7 g/dl (12.0-16.0) Bedside Hematocrit 49 % (37-47) Bedside Sodium 141 mEq/L (135-144) Bedside Potassium 5.2 mEq/L (3.3-5.0) Bedside Chloride 101 mEq/L (101-112) Bedside Total CO2 29 mEq/l (24-31) Anion Gap 17.0 mmol/L (16-25) Bedside Blood Urea Nitrogen 56 mg/dl (7-18) Bedside Creatinine 2.6 mg/dl (0.6-1.3) Bedside Glucose (other) 103 mg/dl (70-99) Bedside Ionized Calcium (Jesus) 1.04 mmol/l (1.12-1.32) Bedside Troponin I 0.070 ng/ml (0-0.045) Test 04/06/18 21:01 04/06/18 22:25 04/06/18 23:12 04/07/18 00:46 Arterial Blood pH 7.32 (7.35-7.45) Arterial Blood Partial Pressure CO2 53 mmHg (35-46) Arterial Blood Partial Pressure O2 168 mm/Hg (80-95) Arterial Blood HCO3 27 mmol/L (19-24) Arterial Blood Oxygen Saturation 99.0 % (90-95) Arterial Blood Base Excess 0.1 mEq/L (-9-1.8) Arterial Blood Gas Delivery 15L Yovani Test POS (POS) Urine Color YELLOW Urine Appearance CLEAR (CLEAR) Urine pH 5.0 (4.5-7.5) Urine Specific [place] 1.009 (1.000-1.030) Urine Protein NEG (NEG) Urine Glucose (UA) NEG (NEG) Urine Ketones NEG (NEG) Urine Occult Blood NEG (NEG) Urine Nitrite NEG (NEG) Urine Bilirubin NEG (NEG) Urine Urobilinogen NEG (NEG) Urine Leukocyte Esterase NEG (NEG) Bedside Lactic Acid Venous 0.95 mmol/L (0.90-1.70) Lactic Acid Level 1.4 mmol/L (0.4-2.0) Test 04/07/18 01:04 04/07/18 04:44 04/07/18 05:57 04/07/18 06:18 Bedside Glucose 120 mg/dl (70-90) 169 mg/dl (70-90) White Blood Count 50.17 K/uL (4.8-10.8) Red Blood Count 5.98 M/uL (4.2-5.4) Hemoglobin 12.7 g/dL (12.0-16.0) Hematocrit 42.4 % (37-47) Mean Corpuscular Volume 70.9 fL (80-100) Mean Corpuscular Hemoglobin 21.2 pg (25-34) Mean Corpuscular Hemoglobin Concent 30.0 g/dl (32-36) Platelet Count 130 K/uL (130-400) Neutrophils (%) (Auto) 95.9 % Lymphocytes (%) (Auto) 1.2 % Monocytes (%) (Auto) 1.8 % Eosinophils (%) (Auto) 0.0 % Basophils (%) (Auto) 0.1 % Neutrophils # (Auto) 48.12 K/uL (1.4-6.5) Lymphocytes # (Auto) 0.59 K/uL (1.2-3.4) Monocytes # (Auto) 0.90 K/uL (0.11-0.59) Eosinophils # (Auto) 0.00 K/uL (0-0.5) Basophils # (Auto) 0.04 K/uL (0-0.2) RDW Standard Deviation 58.8 fL (36.4-46.3) RDW Coefficient of Variation 24.8 % (11.5-14.5) Immature Granulocyte % (Auto) 1.0 % Immature Granulocyte # (Auto) 0.52 K/uL (0.00-0.02) Platelet Estimate DECREASED Anisocytosis PRESENT Ovalocytes 1+ Prothrombin Time 34.2 SECONDS (9.0-12.0) Prothromb Time International Ratio 3.3 (0.9-1.1) Sodium Level 140 mmol/L (136-145) Potassium Level 5.6 mmol/L (3.5-5.1) Chloride Level 108 mmol/L (98-107) Carbon Dioxide Level 27 mmol/L (21-32) Anion Gap 5.0 mmol/L (3-11) Blood Urea Nitrogen 55 mg/dl (7-18) Creatinine 2.20 mg/dl (0.60-1.20) Est Creatinine Clear Calc Drug Dose 31.8 ml/min Estimated GFR () 25.0 Estimated GFR (Non- 21.5 BUN/Creatinine Ratio 25.0 (10-20) Random Glucose 162 mg/dl (70-99) Estimated Average Glucose 166 mg/dl Hemoglobin A1c 7.4 % (4.5-5.6) Calcium Level 7.0 mg/dl (8.5-10.1) Phosphorus Level 4.4 mg/dl (2.5-4.9) Magnesium Level 1.9 mg/dl (1.8-2.4) Troponin I 0.034 ng/ml (0-0.045) Assessment & Plan Patient initiated on vancomycin/zosyn for SSTI. Patient with ELMER with a current estimated half life ~33 hours. However, given high BMI, will check a random level tonight to assess the need for redosing earlier. Loading dose: 1000mg (04/06 @ 2100) + 1500 mg IV X 1 dose (04/07 @0100) Maintenance dose: Will dose based on random levels given ELMER and BMI Goal trough level estimate: between 15 - 20 mcg/mL. Random level has been ordered for: @2100. Pharmacy will continue to follow and will adjust dose/frequency as necessary. Thank you
--- NOTE | 2018-04-07 10:36 | Nephrology Consultation ---
Nephrology Consultation Date & Providers Date of Consultation: Apr 07, 2018. Primary Care Provider: Esequiel Bran D.O. Referring Provider: Reason for Consultation Evaluation and management for ELMER, Hyperkalemia with h/o CKD History of Present Illness Edel Rojas Is a 72-year-old female with past medical history significant for stage 3B/4 chronic kidney disease, hypertension, diabetes admitted to the hospital with sepsis. Nephrology consult was requested to manage acute kidney injury with history of chronic kidney disease. Electronic medical records including labs and imaging were reviewed in detail during patient's visit. Edel presented to the hospital yesterday with rt ankle pain after she slid down to ground while getting off a car. Ankle x ray was negative for fracture. She was found to have sepsis from rt LE cellulitis and started on Empiric antibiotic and IV fluid. She has stage IIIB chronic kidney disease secondary to HTN, DM and microvascular dz, baseline creatinine has been quite variable from 1.6-2.0 with recurrent episode of acute kidney injury, follows with Dr. Dawson.. On admission creatinine was 2.6 which slowly improved to 2.2 this am associated with Hyperkalemia. She has been non-oliguric. Blood pressure has been low. Has low grade proteinuria. Has leukocytosis which has been worsening despite being on antibiotic. Allergies Coded Allergies: Melatonin (Verified Allergy, Severe, RASH, 03/17/18) Penicillins (Verified Allergy, Unknown, UNLNOWN, 03/17/18) Inpatient Medications Current Inpatient Medications Medications (Trade) Dose Ordered Sig/Isidoro Route Start Time Stop Time Status Last Admin Dose Admin Acetaminophen (Tylenol Tab) 650 mg Q4H PRN PO 04/06/18 22:00 05/06/18 21:59 04/07/18 07:38 650 MG Norepinephrine Bitartrate 8 mg/ Dextrose 508 ml @ 0 mls/hr Q0M PRN IV 04/06/18 21:47 05/06/18 21:46 04/06/18 23:25 26.8 MLS/HR Miscellaneous Information ([facility]cu Protocol For Hyperglycemia) 1 ea PRN PRN N/A 04/06/18 22:00 04/08/18 21:59 Insulin Aspart (novoLOG ASPART) SLIDING SCALE IF C... Q6 SC 04/07/18 06:00 05/07/18 05:59 Glucose (Glucose 40% Gel) 15-30 GRAMS 15 GRAMS... UD PRN PO 04/06/18 22:00 05/06/18 21:59 Glucose (Glucose Chew Tab) 4-8 Tablets 4 Tabl... UD PRN PO 04/06/18 22:00 05/06/18 21:59 Dextrose (Dextrose 50% 50ML Syringe) 25-50ML 25ML FOR ... UD PRN IV 04/06/18 22:00 05/06/18 21:59 Glucagon (Glucagon Inj) 1 mg UD PRN SQ 04/06/18 22:00 05/06/18 21:59 Carbohydrates (Carbohydrates For Hypoglycemia) 15-30 GRAMS 15 grams if BSG 54-69... UD PRN PO 04/06/18 22:00 05/06/18 21:59 Miscellaneous Information (Consult Glycemic Management Pharmacy) 1 ea UD PRN N/A 04/06/18 22:17 05/06/18 22:16 Anastrozole (Arimidex Tab) 1 mg DAILY PO 04/07/18 09:00 05/07/18 08:59 04/07/18 09:20 1 MG Aspirin (Ecotrin Tab) 81 mg QAM PO 04/07/18 09:00 05/07/18 08:59 04/07/18 09:16 81 MG Docusate Sodium (coLACE CAP) 100 mg DAILY PO 04/07/18 09:00 05/07/18 08:59 04/07/18 09:16 100 MG Levothyroxine Sodium (Synthroid Tab) 112 mcg DAILYBB PO 04/07/18 06:00 05/07/18 05:59 Magnesium Oxide (Mag-Ox Tab) 400 mg DAILY PO 04/07/18 09:00 05/07/18 08:59 04/07/18 09:17 400 MG Pantoprazole Sodium (Protonix Tab) 40 mg DAILY PO 04/07/18 09:00 05/07/18 08:59 04/07/18 09:16 40 MG Prednisone (PredniSONE TAB) 10 mg UD PO 04/06/18 22:00 05/06/18 21:59 UNV Pregabalin (Lyrica Cap) 150 mg TID PO 04/07/18 09:00 05/07/18 08:59 04/07/18 09:18 150 MG Rosuvastatin Calcium (Crestor Tab) 10 mg DAILY PO 04/07/18 09:00 05/07/18 08:59 04/07/18 09:16 10 MG Sertraline HCl (Zoloft Tab) 150 mg DAILY PO 04/07/18 09:00 05/07/18 08:59 04/07/18 09:16 150 MG Tiotropium Bird In Hand (Spiriva Handihaler Inhaler) 1 puff QAM INH 04/07/18 09:00 05/07/18 08:59 04/07/18 09:15 1 PUFF Vancomycin HCl (Consult) 1 ea UD PRN N/A 04/06/18 22:30 05/06/18 22:29 Miscellaneous Information (Consult) 1 ea UD PRN N/A 04/06/18 22:30 05/06/18 22:29 Piperacillin Sod/ Tazobactam Sod 4.5 gm/Dextrose 120 ml @ 30 mls/hr Q8H IV 04/07/18 01:00 04/17/18 00:59 04/07/18 09:19 30 MLS/HR Clindamycin Phosphate 600 mg/ Dextrose 54 ml @ 100 mls/hr Q8H IV 04/07/18 02:00 04/17/18 01:59 04/07/18 09:35 100 MLS/HR Family History Patient reports no known family medical history. Social History Smoking Status: Current Every Day Smoker Smokeless Tobacco Use: No Alcohol Use: none Drug Use: none Marital Status: Housing Status: lives with family Occupation: retired Review of Systems A complete review of systems was performed. Pertinent positives are noted above. All other systems are negative. Physical Exam Date Time Temp Pulse Resp B/P (MAP) Pulse Ox O2 Delivery O2 Flow Rate FiO2 04/07/18 08:31 73 19 99/71 (80) 94 CPAP 6.0 04/07/18 08:00 36.4 68 20 101/68 (79) 95 CPAP 6.0 04/07/18 08:00 CPAP 6.0 04/07/18 06:00 62 16 113/59 (77) 95 04/07/18 05:45 60 15 104/68 (80) 96 04/07/18 05:30 53 20 108/63 (78) 92 8/20/18 05:15 55 15 100/69 (79) 97 04/07/18 05:00 52 17 106/58 (74) 98 18 04:45 63 16 107/64 (78) 97 18 04:30 72 18 109/55 (73) 96 04/07/18 04:15 56 20 104/70 (81) 95 04/07/18 04:00 CPAP 04/07/18 04:00 59 17 98/61 (73) 95 04/07/18 03:45 56 17 100/60 (73) 95 04/07/18 03:30 69 16 97/65 (76) 95 04/07/18 03:15 68 20 89/51 (64) 93 04/07/18 02:45 71 20 96/60 (72) 94 CPAP 6.0 04/07/18 02:15 65 20 90/67 (75) 93 CPAP 6.0 04/07/18 02:00 82 20 77/57 (64) 94 CPAP 6.0 04/07/18 01:58 91 94 6.0 04/07/18 01:45 77 24 98/58 (71) 96 CPAP 6.0 04/07/18 01:15 79 22 107/57 (74) 100 Non-Rebreather 15.0 04/07/18 00:45 83 24 88/45 (59) 99 Non-Rebreather 15.0 04/07/18 00:15 84 26 95/60 (72) 100 Non-Rebreather 15.0 04/07/18 00:01 36.9 95 26 95/60 100 Non-Rebreather 15.0 04/06/18 23:47 84 20 94/71 99 18 23:35 84 20 94/71 99 18 23:30 85 20 /56 99 18 23:15 88 15 71/32 100 18 23:00 93 15 80/43 90 18 22:45 82 17 67/44 100 18 22:30 82 13 73/45 100 18 22:15 91 20 89/49 100 04/06/18 22:00 96 25 94/49 98 04/06/18 21:59 36.5 04/06/18 21:46 94 19 85/49 100 04/06/18 21:31 92 16 94/46 100 04/06/18 21:17 85 24 78/46 100 04/06/18 21:13 97 14 75/49 100 04/06/18 21:06 103 24 71/45 97 04/06/18 21:03 61/46 04/06/18 21:00 104 24 97 04/06/18 20:56 121/56 04/06/18 20:47 78 Nasal Cannula 4.0 04/06/18 20:45 102 16 04/06/18 20:30 36.7 105 22 61/37 92 Nasal Cannula 4.0 04/06/18 20:30 109 22 79 GENERAL: Elderly female, AAA x 3, pleasant, not in any distress. HEENT: Atraumatic, normocephalic. Wearing CPAP NECK: Supple, no JVD, no carotid bruit appreciated. ENT: No sinus tenderness MOUTH and THROAT: Moist oral mucosa, no oral ulcer or pharyngeal erythema RESPIRATORY: Normal breathing efforts, no accessory muscle use, clear to auscultation bilaterally, no wheezes or rales. CARDIOVASCULAR: S1, S2 normal, rate rhythm regular. ABDOMEN: Soft, nontender, positive bowel sound. MUSCULOSKELETAL: No CVA tenderness. No joint swelling, erythema or tenderness. Normal range of motion. SKIN: No skin rash EXTREMITY: Trace bilateral lower extremity edema, right lower extremity wrapped in dressing. NEURO: No gross focal neurological deficit, speech fluent. PSYCHIATRY: Normal mood and judgment Laboratory Results Last 24 Hours Test 04/06/18 20:25 04/06/18 20:51 04/06/18 20:56 04/06/18 20:58 White Blood Count 45.15 K/uL Red Blood Count 6.82 M/uL Hemoglobin 14.9 g/dL Hematocrit 48.5 % Mean Corpuscular Volume 71.1 fL Mean Corpuscular Hemoglobin 21.8 pg Mean Corpuscular Hemoglobin Concent 30.7 g/dl Platelet Count 142 K/uL Neutrophils (%) (Auto) 92.6 % Lymphocytes (%) (Auto) 1.6 % Monocytes (%) (Auto) 3.5 % Eosinophils (%) (Auto) 0.0 % Basophils (%) (Auto) 0.1 % Neutrophils # (Auto) 41.84 K/uL Lymphocytes # (Auto) 0.70 K/uL Monocytes # (Auto) 1.59 K/uL Eosinophils # (Auto) 0.01 K/uL Basophils # (Auto) 0.03 K/uL RDW Standard Deviation 59.2 fL RDW Coefficient of Variation 25.0 % Immature Granulocyte % (Auto) 2.2 % Immature Granulocyte # (Auto) 0.98 K/uL Toxic Granulation 1+ Platelet Estimate DECREASED Hypochromasia PRESENT Anisocytosis PRESENT Prothrombin Time 33.7 SECONDS Prothromb Time International Ratio 3.3 Activated Partial Thromboplast Time 32.7 SECONDS Partial Thromboplastin Ratio 1.3 Sodium Level 139 mmol/L Potassium Level 4.9 mmol/L Chloride Level 105 mmol/L Carbon Dioxide Level 25 mmol/L Anion Gap 9.0 mmol/L 17.0 mmol/L Blood Urea Nitrogen 59 mg/dl Creatinine 2.76 mg/dl Est Creatinine Clear Calc Drug Dose 27.0 ml/min Estimated GFR () 19.0 Estimated GFR (Non- 16.4 BUN/Creatinine Ratio 21.2 Random Glucose 106 mg/dl Calcium Level 8.2 mg/dl Total Bilirubin 0.8 mg/dl Direct Bilirubin 0.2 mg/dl Aspartate Amino Transf (AST/SGOT) 19 U/L Alanine Aminotransferase (ALT/SGPT) 45 U/L Alkaline Phosphatase 73 U/L Total Protein 6.4 gm/dl Albumin 3.2 gm/dl Bedside Lactic Acid Venous 4.25 mmol/L Bedside Hemoglobin 16.7 g/dl Bedside Hematocrit 49 % Bedside Sodium 141 mEq/L Bedside Potassium 5.2 mEq/L Bedside Chloride 101 mEq/L Bedside Total CO2 29 mEq/l Bedside Blood Urea Nitrogen 56 mg/dl Bedside Creatinine 2.6 mg/dl Bedside Glucose (other) 103 mg/dl Bedside Ionized Calcium (Jesus) 1.04 mmol/l Bedside Troponin I 0.070 ng/ml Test 04/06/18 21:01 04/06/18 22:25 04/06/18 23:12 04/07/18 00:46 Arterial Blood pH 7.32 Arterial Blood Partial Pressure CO2 53 mmHg Arterial Blood Partial Pressure O2 168 mm/Hg Arterial Blood HCO3 27 mmol/L Arterial Blood Oxygen Saturation 99.0 % Arterial Blood Base Excess 0.1 mEq/L Arterial Blood Gas Delivery 15L Yovani Test POS Urine Color YELLOW Urine Appearance CLEAR Urine pH 5.0 Urine Specific [place] 1.009 Urine Protein NEG Urine Glucose (UA) NEG Urine Ketones NEG Urine Occult Blood NEG Urine Nitrite NEG Urine Bilirubin NEG Urine Urobilinogen NEG Urine Leukocyte Esterase NEG Bedside Lactic Acid Venous 0.95 mmol/L Lactic Acid Level 1.4 mmol/L Test 04/07/18 01:04 04/07/18 04:44 04/07/18 05:57 04/07/18 06:18 Bedside Glucose 120 mg/dl 169 mg/dl White Blood Count 50.17 K/uL Red Blood Count 5.98 M/uL Hemoglobin 12.7 g/dL Hematocrit 42.4 % Mean Corpuscular Volume 70.9 fL Mean Corpuscular Hemoglobin 21.2 pg Mean Corpuscular Hemoglobin Concent 30.0 g/dl Platelet Count 130 K/uL Neutrophils (%) (Auto) 95.9 % Lymphocytes (%) (Auto) 1.2 % Monocytes (%) (Auto) 1.8 % Eosinophils (%) (Auto) 0.0 % Basophils (%) (Auto) 0.1 % Neutrophils # (Auto) 48.12 K/uL Lymphocytes # (Auto) 0.59 K/uL Monocytes # (Auto) 0.90 K/uL Eosinophils # (Auto) 0.00 K/uL Basophils # (Auto) 0.04 K/uL RDW Standard Deviation 58.8 fL RDW Coefficient of Variation 24.8 % Immature Granulocyte % (Auto) 1.0 % Immature Granulocyte # (Auto) 0.52 K/uL Platelet Estimate DECREASED Anisocytosis PRESENT Ovalocytes 1+ Prothrombin Time 34.2 SECONDS Prothromb Time International Ratio 3.3 Sodium Level 140 mmol/L Potassium Level 5.6 mmol/L Chloride Level 108 mmol/L Carbon Dioxide Level 27 mmol/L Anion Gap 5.0 mmol/L Blood Urea Nitrogen 55 mg/dl Creatinine 2.20 mg/dl Est Creatinine Clear Calc Drug Dose 31.8 ml/min Estimated GFR () 25.0 Estimated GFR (Non- 21.5 BUN/Creatinine Ratio 25.0 Random Glucose 162 mg/dl Estimated Average Glucose 166 mg/dl Hemoglobin A1c 7.4 % Calcium Level 7.0 mg/dl Phosphorus Level 4.4 mg/dl Magnesium Level 1.9 mg/dl Troponin I 0.034 ng/ml Impression 72 year female with baseline ambulatory dysfunction, uses wheelchair mostly for ambulation with history of recurrent fall admitted to the hospital with sepsis started on empiric antibiotic. Has stage IIIB chronic kidney disease with variable creatinine form 1.5-1.7, on admission found to have acute kidney injury creatinine was 2.6 which slightly improved and creatinine was 2.2 this morning. She has been non-oliguric. Electrolyte acceptable. Blood pressure remain relatively low, on IV fluid and pressor. Has hyperkalemia. ELMER mostly hemodynamically mediated with persistent hypotension and sepsis. Hyperkalemia with KCL supplement, Spironolactone and ELMER Recommendations -- Renal function started to improve, hopefully will continue to improve with hemodynamic support. -- kayexalate 15 gm po x 1 dose -- avoid nephrotoxic medications -- encourage adequate p.o. intake -- monitor renal function daily --significant leukocytosis, worsening despite being on empiric antibiotic, suggest hematology consult. Will follow Thank you for allowing me to participate in your patient's care. It was a pleasure to see Edel
--- NOTE | 2018-04-07 11:40 | ECHOCARDIOGRAM REPORT ---
*NOTICE TO RECEIVING DEMOCRAT AGENCY This information is strictly Confidential and protected under [place] law. [place] law prohibits you from making any further disclosure of this information unless further disclosure is expressly permitted by the written consent of the person to whom it pertains or is authorized by law. A general authorization for the release of medical or other information is not sufficient for this purpose. Hospital accepts no responsibility if the information is made available to any other person, INCLUDING THE PATIENT. Interpretation Summary * Name: CHANTEL ALEXANDRE Study Date: 04/07/2018 08:22 AM BP: 99/71 mmHg * Patient Location: .[facility]\[id number]\E103\S\1 HR: 73 * : 1945 (M/d/yyy) Gender: Female Height: 64 in * Age: 72 yrs Ethnicity: CA Weight: 306 lb * Ordering Physician: Paulo Harkins * Referring Physician: Self, Referred * Performed By: Argentina Hernandez RDCS * * Reason For Study: Hypotension * BSA: 2.3 m2 * -- Conclusions -- * No significant change compared to previous study of 03/18/18 with limited views obtained. * Normal LV chamber size with mild concentric LVH. * Normal LV systolic function, EF 55-60%. * No segmental left ventricular wall motion abnormalities are noted. * No pericardial effusion. Procedure Details * Limited views were obtained. * The study was technically difficult. * The study was technically difficult, but visualization was adequate with the administration of Definity ultrasound contrast. * There were technical limitations due to patient'sbody habitus * A contrast injection of Definity was performed to improve assessment of LV function. * Contrast was injected into an intravenous site in the right arm. * One vial of Definity ultrasound contrast was diluted in normal saline to a total volume of 10 ml. A total of '2' ml of solution was administered during imaging. * Lot # [id number] of Definity utilized for procedure. * Expiration date . * The attending nurse who injected the contrast agent was Vani Schwab RN. Left Ventricle * The left ventricle is normal in size. * There is mild concentric left ventricular hypertrophy. * Ejection Fraction = 55-60%. * Left ventricular systolic function is normal. * No segmental left ventricular wall motion abnormalities are noted. * The left ventricular wall motion is normal. MMode 2D Measurements and Calculations IVSd 1.5 cm IVSs 1.7 cm LVIDd 3.4 cm LVIDs 2.5 cm LVPWd 1.5 cm LVPWs 1.7 cm IVS/LVPW 1.0 FS 26.2 % EDV(Teich) 45.9 ml ESV(Teich) 21.8 ml EF(Teich) 52.5 % EDV(cubed) 37.7 ml ESV(cubed) 15.2 ml EF(cubed) 59.8 % % IVS thick 13.3 % % LVPW thick 9.7 % LV mass(C)d 186.5 grams LV mass(C)dI 79.6 grams/m\S\2 LV mass(C)s 155.7 grams LV mass(C)sI 66.4 grams/m\S\2 SV(Teich) 24.1 ml SI(Teich) 10.3 ml/m\S\2 SV(cubed) 22.6 ml SI(cubed) 9.6 ml/m\S\2 LVAd ap4 30.9 cm\S\2 LVLd ap4 8.0 cm EDV(MOD-sp4) 100.5 ml EDV(sp4-el) 101.4 ml LVAs ap4 18.5 cm\S\2 LVLs ap4 6.3 cm ESV(MOD-sp4) 45.2 ml ESV(sp4-el) 46.0 ml EF(MOD-sp4) 55.0 % EF(sp4-el) 54.6 % LVAd ap2 25.6 cm\S\2 LVLd ap2 7.5 cm EDV(MOD-sp2) 73.7 ml EDV(sp2-el) 74.1 ml LVAs ap2 15.4 cm\S\2 LVLs ap2 6.2 cm ESV(MOD-sp2) 32.9 ml ESV(sp2-el) 32.2 ml EF(MOD-sp2) 55.4 % EF(sp2-el) 56.5 % LVLd %diff -6.60 % EDV(MOD-bp) 89.3 ml LVLs %diff -1.41 % ESV(MOD-bp) 39.2 ml EF(MOD-bp) 56.1 % SV(MOD-sp4) 55.3 ml SI(MOD-sp4) 23.6 ml/m\S\2 SV(MOD-sp2) 40.9 ml SI(MOD-sp2) 17.4 ml/m\S\2 SV(MOD-bp) 50.0 ml SI(MOD-bp) 21.4 ml/m\S\2 SV(sp4-el) 55.4 ml SI(sp4-el) 23.6 ml/m\S\2 SV(sp2-el) 41.9 ml SI(sp2-el) 17.9 ml/m\S\2 Doppler Measurements and Calculations TR max sylvie 276.9 cm/sec
--- NOTE | 2018-04-07 13:10 | HISTORY & PHYSICAL EXAMINATION ---
DATE OF ADMISSION: 04/06/2018 CHIEF ORTHOPEDIC CONSULTATION CONCERN: Right proximal fibular fracture on the right. HISTORY OF PRESENT ILLNESS: Edel is delightful, I met her this morning. She is alert, oriented. She is 72. She is significantly compromised by significant comorbidities including obesity, COPD, coronary artery disease, vascular insufficiency. She has also had chronic cellulitis of the leg, diabetes along with depression. ____ was getting up, tripped, fell to her knee, suffered a fracture to her fibula. It is minimally displaced. It is a nonsurgical problem. She is brought to the Emergency Room, resuscitated. I am seeing her in consultation this morning approximately 12:30 p.m. EXAMINATION: We took off her splint. She has some associated cellulitis at the right lower extremity, decreased range of motion, [id number] pain around the proximal fibula, mild breaking of the skin, some slight decubitus on the right heel approximately 1 cm x 8 mm. There are no other issues. 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 There is also some vascular clips in place from some vascular procedure distally as well. IMPRESSION: Right proximal fibular fracture from an orthopedic standpoint, cellulitis lower extremity, old open reduction internal fixation along with avascular necrosis. Along with her more prominent issues of her significant comorbidities. PLAN: At this point in time, because of the potential instability of her foot and ankle, I am going to order a boot for support. She will need some wound care and evaluation as well. She will need antibiotics at least in the short run with the cellulitis. There are no surgical issues. I will follow along.
[2018-04-07] MEDS: CEFAZOLIN IV SCH (16:45)
[2018-04-07] MEDS: NOREPINEPHRINE BIT INJ 8 MG in DEXTROSE 5% 500ML 500 ML IV PRN (17:51)
--- NOTE | 2018-04-07 19:26 | Progress Note ---
Subjective Date of Service: Apr 07, 2018. Subjective Pt evaluation today including: conversation w/ patient, conversation w/ family (daughter at bedside), physical exam, chart review, lab review, review of studies (venous and arterial dopplers RLE; echo; etc ), conversation w/ business system consultant (critical care), review of inpatient medication list Pain: denied any pain during my visit Voiding: gabriel catheter in place patient w/o dyspnea this am CPAP was removed and she was placed on her standard NC O2 no chest pain no abd pain daughter reports she had been progressing and getting better at home after recent hospitalization RLE cellulitis was brewing for perhaps a day and then got much worse yesterday ( daughter showed me pictures of the leg) Problem List Medical Problems: (1) Altered mental status Status: Acute (2) Anticoagulated on Coumadin Status: Acute (3) Cellulitis of right leg Status: Acute (4) Chronic kidney disease (CKD) Status: Acute (5) Left leg cellulitis Status: Acute (6) Respiratory failure Status: Acute (7) Respiratory failure, acute Status: Chronic (8) Septic shock Status: Acute (9) Shortness of breath Status: Acute (10) Syncope Status: Acute Review of Systems Constitutional: No fever Respiratory: No cough, No shortness of breath, No dyspnea at rest Cardiac: No chest pain Abdomen: No pain Objective Vital Signs Date Time Temp Pulse Resp B/P (MAP) Pulse Ox O2 Delivery O2 Flow Rate FiO2 04/07/18 11:00 82 25 118/81 (93) 94 Nasal Cannula 4.0 04/07/18 10:32 74 18 103/61 (75) 94 Nasal Cannula 4.0 04/07/18 10:03 65 15 84/69 (74) 94 CPAP 6.0 04/07/18 09:32 76 12 114/72 (86) 96 CPAP 6.0 04/07/18 09:02 70 21 87/40 (56) 95 CPAP 6.0 04/07/18 08:31 73 19 99/71 (80) 94 CPAP 6.0 04/07/18 08:00 36.4 68 20 101/68 (79) 95 CPAP 6.0 04/07/18 08:00 CPAP 6.0 04/07/18 08:00 Nasal Cannula CPAP 04/07/18 06:00 62 16 113/59 (77) 95 8/20/18 05:45 60 15 104/68 (80) 96 04/07/18 05:30 53 20 108/63 (78) 92 04/07/18 05:15 55 15 100/69 (79) 97 04/07/18 05:00 52 17 106/58 (74) 98 04/07/18 04:45 63 16 107/64 (78) 97 04/07/18 04:30 72 18 109/55 (73) 96 04/07/18 04:15 56 20 104/70 (81) 95 04/07/18 04:00 CPAP 04/07/18 04:00 59 17 98/61 (73) 95 04/07/18 03:45 56 17 100/60 (73) 95 04/07/18 03:30 69 16 97/65 (76) 95 04/07/18 03:15 68 20 89/51 (64) 93 04/07/18 02:45 71 20 96/60 (72) 94 CPAP 6.0 04/07/18 02:15 65 20 90/67 (75) 93 CPAP 6.0 04/07/18 02:00 82 20 77/57 (64) 94 CPAP 6.0 04/07/18 01:58 91 94 6.0 04/07/18 01:45 77 24 98/58 (71) 96 CPAP 6.0 04/07/18 01:15 79 22 107/57 (74) 100 Non-Rebreather 15.0 04/07/18 00:45 83 24 88/45 (59) 99 Non-Rebreather 15.0 04/07/18 00:15 84 26 95/60 (72) 100 Non-Rebreather 15.0 04/07/18 00:01 36.9 95 26 95/60 100 Non-Rebreather 15.0 18 23:47 84 20 94/71 99 18 23:35 84 20 94/71 99 18 23:30 85 20 /56 99 18 23:15 88 15 71/32 100 18 23:00 93 15 80/43 90 18 22:45 82 17 67/44 100 18 22:30 82 13 73/45 100 18 22:15 91 20 89/49 100 04/06/18 22:00 96 25 94/49 98 04/06/18 21:59 36.5 04/06/18 21:46 94 19 85/49 100 04/06/18 21:31 92 16 94/46 100 04/06/18 21:17 85 24 78/46 100 04/06/18 21:13 97 14 75/49 100 04/06/18 21:06 103 24 71/45 97 04/06/18 21:03 61/46 04/06/18 21:00 104 24 97 04/06/18 20:56 121/56 04/06/18 20:47 78 Nasal Cannula 4.0 04/06/18 20:45 102 16 04/06/18 20:30 36.7 105 22 61/37 92 Nasal Cannula 4.0 04/06/18 20:30 109 22 79 Physical Exam General Appearance: no apparent distress, + obese ENT: pharynx normal Neck: + JVD (question of), + pertinent finding (right IJ CVC clean) Respiratory/Chest: lungs clear, no respiratory distress, no accessory muscle use Cardiovascular: + pertinent finding (irregular, s1, s2, no murmur appreciated) Abdomen: normal bowel sounds, non tender, soft, no organomegaly Extremities: + pertinent finding (right leg from the knee to the foot in splint ; cap refill all toes right foot about 2-3 seconds; left foot pulses about 1+; pulses could not be appreciated on right due to splint; minimal edema of left foot noted) Neurologic/Psychiatric: alert, oriented x 3 Laboratory Results Last 24 Hours Test 04/06/18 20:25 04/06/18 20:51 04/06/18 20:56 04/06/18 20:58 White Blood Count 45.15 K/uL Red Blood Count 6.82 M/uL Hemoglobin 14.9 g/dL Hematocrit 48.5 % Mean Corpuscular Volume 71.1 fL Mean Corpuscular Hemoglobin 21.8 pg Mean Corpuscular Hemoglobin Concent 30.7 g/dl Platelet Count 142 K/uL Neutrophils (%) (Auto) 92.6 % Lymphocytes (%) (Auto) 1.6 % Monocytes (%) (Auto) 3.5 % Eosinophils (%) (Auto) 0.0 % Basophils (%) (Auto) 0.1 % Neutrophils # (Auto) 41.84 K/uL Lymphocytes # (Auto) 0.70 K/uL Monocytes # (Auto) 1.59 K/uL Eosinophils # (Auto) 0.01 K/uL Basophils # (Auto) 0.03 K/uL RDW Standard Deviation 59.2 fL RDW Coefficient of Variation 25.0 % Immature Granulocyte % (Auto) 2.2 % Immature Granulocyte # (Auto) 0.98 K/uL Toxic Granulation 1+ Platelet Estimate DECREASED Hypochromasia PRESENT Anisocytosis PRESENT Prothrombin Time 33.7 SECONDS Prothromb Time International Ratio 3.3 Activated Partial Thromboplast Time 32.7 SECONDS Partial Thromboplastin Ratio 1.3 Sodium Level 139 mmol/L Potassium Level 4.9 mmol/L Chloride Level 105 mmol/L Carbon Dioxide Level 25 mmol/L Anion Gap 9.0 mmol/L 17.0 mmol/L Blood Urea Nitrogen 59 mg/dl Creatinine 2.76 mg/dl Est Creatinine Clear Calc Drug Dose 27.0 ml/min Estimated GFR () 19.0 Estimated GFR (Non- 16.4 BUN/Creatinine Ratio 21.2 Random Glucose 106 mg/dl Calcium Level 8.2 mg/dl Total Bilirubin 0.8 mg/dl Direct Bilirubin 0.2 mg/dl Aspartate Amino Transf (AST/SGOT) 19 U/L Alanine Aminotransferase (ALT/SGPT) 45 U/L Alkaline Phosphatase 73 U/L Total Protein 6.4 gm/dl Albumin 3.2 gm/dl Bedside Lactic Acid Venous 4.25 mmol/L Bedside Hemoglobin 16.7 g/dl Bedside Hematocrit 49 % Bedside Sodium 141 mEq/L Bedside Potassium 5.2 mEq/L Bedside Chloride 101 mEq/L Bedside Total CO2 29 mEq/l Bedside Blood Urea Nitrogen 56 mg/dl Bedside Creatinine 2.6 mg/dl Bedside Glucose (other) 103 mg/dl Bedside Ionized Calcium (Jesus) 1.04 mmol/l Bedside Troponin I 0.070 ng/ml Test 04/06/18 21:01 04/06/18 22:25 04/06/18 23:12 04/07/18 00:46 Arterial Blood pH 7.32 Arterial Blood Partial Pressure CO2 53 mmHg Arterial Blood Partial Pressure O2 168 mm/Hg Arterial Blood HCO3 27 mmol/L Arterial Blood Oxygen Saturation 99.0 % Arterial Blood Base Excess 0.1 mEq/L Arterial Blood Gas Delivery 15L Yovani Test POS Urine Color YELLOW Urine Appearance CLEAR Urine pH 5.0 Urine Specific [place] 1.009 Urine Protein NEG Urine Glucose (UA) NEG Urine Ketones NEG Urine Occult Blood NEG Urine Nitrite NEG Urine Bilirubin NEG Urine Urobilinogen NEG Urine Leukocyte Esterase NEG Bedside Lactic Acid Venous 0.95 mmol/L Lactic Acid Level 1.4 mmol/L Test 04/07/18 01:04 04/07/18 04:44 04/07/18 05:57 04/07/18 06:18 Bedside Glucose 120 mg/dl 169 mg/dl White Blood Count 50.17 K/uL Red Blood Count 5.98 M/uL Hemoglobin 12.7 g/dL Hematocrit 42.4 % Mean Corpuscular Volume 70.9 fL Mean Corpuscular Hemoglobin 21.2 pg Mean Corpuscular Hemoglobin Concent 30.0 g/dl Platelet Count 130 K/uL Neutrophils (%) (Auto) 95.9 % Lymphocytes (%) (Auto) 1.2 % Monocytes (%) (Auto) 1.8 % Eosinophils (%) (Auto) 0.0 % Basophils (%) (Auto) 0.1 % Neutrophils # (Auto) 48.12 K/uL Lymphocytes # (Auto) 0.59 K/uL Monocytes # (Auto) 0.90 K/uL Eosinophils # (Auto) 0.00 K/uL Basophils # (Auto) 0.04 K/uL RDW Standard Deviation 58.8 fL RDW Coefficient of Variation 24.8 % Immature Granulocyte % (Auto) 1.0 % Immature Granulocyte # (Auto) 0.52 K/uL Platelet Estimate DECREASED Anisocytosis PRESENT Ovalocytes 1+ Prothrombin Time 34.2 SECONDS Prothromb Time International Ratio 3.3 Sodium Level 140 mmol/L Potassium Level 5.6 mmol/L Chloride Level 108 mmol/L Carbon Dioxide Level 27 mmol/L Anion Gap 5.0 mmol/L Blood Urea Nitrogen 55 mg/dl Creatinine 2.20 mg/dl Est Creatinine Clear Calc Drug Dose 31.8 ml/min Estimated GFR () 25.0 Estimated GFR (Non- 21.5 BUN/Creatinine Ratio 25.0 Random Glucose 162 mg/dl Estimated Average Glucose 166 mg/dl Hemoglobin A1c 7.4 % Calcium Level 7.0 mg/dl Phosphorus Level 4.4 mg/dl Magnesium Level 1.9 mg/dl Troponin I 0.034 ng/ml Assessment and Plan 72yo female with: 1. septic shock presumably 2nd to RLE cellulitis. Broad-spectrum IV abx, follow cultures, levophed support for BP, follow CVPs given her h/o CHF. 2. acute kidney injury - likely sepsis-associated ATN - supportive care measures, agree w/ kayexalate for hyperkalemia, appreciate nephrology consultation. BMP in am. 3. morbid obesity with BMI 52.5. 4. chronic hypoxic/hypercarbic resp failure on home O2 - stable, continue NC O2 daytime and CPAP at HS. 5. COPD - not in exacerbation at this time. Defer stress dose steroids to critical care. 6. atrial flutter - INR is >3 - coumadin on hold. Rates acceptable. 7. JONATHON - CPAP HS. 8. hypothyroidism - TSH 06/2017 wnl; cont synthroid. Recheck TSH in am. 9. T2DM - glycemic pharmacy consult placed by ICU. Appreciate their assistance. 10. positive troponin - myocardial demand ischemia in setting of #1. ECHO w/o wall motion abnormalities. 11. CKD stage 3 - baseline Cr about 1.5/1.7. 12. chronic diastolic CHF - thus far compensated; follow CVPs and exams for decompensation. 13. ?PAD RLE - consider vascular surgery consult once renal function improves and she is off pressors. 14. right fibula fracture - orthopedics consulted for management. 15. hyperkalemia - kayexalate. 16. h/o CAD - noted; no ischemic symptoms at this time. 17. leukocytosis - severe - normal WBC count on 03/28/18. Likely leukamoid reaction to septic shock. Serial cbc's. daughter updated at bedside Continued [facility] stay due to: abnormal vital signs, voiding difficulties, ambulation difficulties, multiple IV medications needed Discharge planning: uncertain
[2018-04-07] MEDS ORDERED: PREGABALIN 75 MG CAP PO SCH (21:00)
[2018-04-07] MEDS: PREGABALIN 75 MG CAP PO SCH (21:11)
[2018-04-07] MEDS: HYDROCODONE/ACETAMIN 5/325MG TAB PO PRN (21:12)
[2018-04-08] VITALS (18 sets, daily range): BP systolic 86–132; BP diastolic 40–87; PULSE 88–130; TEMP 36.7–37; O2SAT 86–97
[2018-04-08] MEDS: HYDROCODONE/ACETAMIN 5/325MG TAB PO PRN ×3 (04:37→21:57)
[2018-04-08] MEDS: CEFAZOLIN IV SCH (04:47)
[2018-04-08 04:57] LABS: INR 3.5 (0.9-1.1)
[2018-04-08 05:12] LABS: CALCIUM 7.4 mg/dl (8.5-10.1); CREATININE 1.54 mg/dl (0.60-1.20); POTASSIUM 4.3 mmol/L (3.5-5.1)
[2018-04-08 05:24] LABS: PHOSPHORUS 4.4 mg/dl (2.5-4.9)
[2018-04-08 05:26] LABS: HEMATOCRIT 38.3 % (37-47); HEMOGLOBIN 11.8 g/dL (12.0-16.0); MEAN CELL VOLUME 69.9 fL (80-100); MEAN CORPUSCULAR HEMOGLOBIN 21.5 pg (25-34); MEAN CORPUSCULAR HGB CONC 30.8 g/dl (32-36); PLATELET COUNT 85 K/uL (130-400); RED CELL DISTRIBUTION WIDTH CV 24.8 % (11.5-14.5); WHITE BLOOD COUNT 31.13 K/uL (4.8-10.8)
[2018-04-08 05:30] LABS: BASO ABS # 0.01 K/uL (0-0.2); EOS % 0.1 %; EOS ABS # 0.02 K/uL (0-0.5); IG# 0.19 K/uL (0.00-0.02); LYMPH % 2.2 %; LYMPH ABS # 0.68 K/uL (1.2-3.4); MONO % 3.1 %; MONO ABS # 0.96 K/uL (0.11-0.59); NEUT ABS # 29.27 K/uL (1.4-6.5)
[2018-04-08] MEDS: LEVOTHYROXINE 112 MCG TAB PO SCH (06:08)
[2018-04-08] MEDS: INSULIN ASPART 100 UNITS/ML 3 ML PEN SC SCH ×4 (08:39→22:18)
--- NOTE | 2018-04-08 08:39 | Progress Note ---
Subjective Date of Service: Apr 08, 2018. Subjective Pt evaluation today including: conversation w/ patient, physical exam, chart review, lab review, review of inpatient medication list Pain: right hip and right distal leg PO Intake: tolerated breakfast well Voiding: gabriel catheter in place (good UOP overnight) levophed just shut off at 0700 this am since then her SBPs have been 90-100 she feels better denies dyspnea or cough no cp no abd pain +flatus no diarrhea main complaints are that of right lateral hip pain, right lower back pain and right distal leg pain Problem List Medical Problems: (1) Altered mental status Status: Acute (2) Anticoagulated on Coumadin Status: Acute (3) Cellulitis of right leg Status: Acute (4) Chronic kidney disease (CKD) Status: Acute (5) Left leg cellulitis Status: Acute (6) Respiratory failure Status: Acute (7) Respiratory failure, acute Status: Chronic (8) Septic shock Status: Acute (9) Shortness of breath Status: Acute (10) Syncope Status: Acute Review of Systems Constitutional: No fever, No chills Respiratory: No cough Cardiac: No chest pain Abdomen: No pain Musculoskeletal: + see HPI, + joint pain Objective Vital Signs Date Time Temp Pulse Resp B/P (MAP) Pulse Ox O2 Delivery O2 Flow Rate FiO2 04/08/18 06:00 101 20 108/80 (89) 95 Nasal Cannula 4.0 04/08/18 04:00 37.0 102 14 107/74 (85) 93 CPAP 6.0 04/08/18 02:00 100 20 86/66 (73) 92 CPAP 6.0 04/08/18 00:01 36.8 100 14 93/60 (71) 92 CPAP 6.0 04/07/18 23:59 CPAP 6.0 04/07/18 22:00 75 16 91/57 (68) 93 CPAP 6.0 04/07/18 20:00 36.6 80 15 110/73 (85) 94 Nasal Cannula 4.0 04/07/18 18:10 83 19 97/68 (78) 95 Nasal Cannula 4.0 04/07/18 18:02 83 25 78/63 (68) 93 Nasal Cannula 4.0 04/07/18 17:31 93 18 87/56 (66) 93 Nasal Cannula 4.0 04/07/18 17:01 101 13 83/48 (60) 92 Nasal Cannula 4.0 04/07/18 16:31 100 19 94/65 (75) 95 Nasal Cannula 4.0 04/07/18 16:00 36.6 97 16 92/61 (71) 92 Nasal Cannula 4.0 04/07/18 15:01 84 13 83/50 (61) 95 Nasal Cannula 4.0 04/07/18 14:55 83 19 101/62 (75) 95 Nasal Cannula 4.0 04/07/18 14:38 88 15 79/50 (60) 92 Nasal Cannula 4.0 04/07/18 14:31 84 21 75/48 (57) 92 Nasal Cannula 4.0 04/07/18 14:00 88 13 122/58 (79) 93 Nasal Cannula 4.0 04/07/18 12:32 75 12 106/64 (78) 93 Nasal Cannula 4.0 04/07/18 12:00 36.4 82 13 99/74 (82) 93 Nasal Cannula 4.0 04/07/18 11:00 82 25 118/81 (93) 94 Nasal Cannula 4.0 04/07/18 10:32 74 18 103/61 (75) 94 Nasal Cannula 4.0 04/07/18 10:03 65 15 84/69 (74) 94 CPAP 6.0 04/07/18 09:32 76 12 114/72 (86) 96 CPAP 6.0 04/07/18 09:02 70 21 87/40 (56) 95 CPAP 6.0 04/07/18 08:31 73 19 99/71 (80) 94 CPAP 6.0 Physical Exam General Appearance: no apparent distress, + obese ENT: pharynx normal Neck: + JVD, + pertinent finding (right IJ CVC clean) Respiratory/Chest: no respiratory distress, no accessory muscle use, + decreased breath sounds (bases), + wheezing (end-exp) Cardiovascular: no gallop, no murmur, + tachycardia Abdomen: normal bowel sounds, non tender, soft, no organomegaly, + hernia ( umbilical - reducible) Extremities: + pedal edema (2+ b/l) Neurologic/Psychiatric: alert, oriented x 3 Skin: + pertinent finding (cellulitis, right distal luque - markedly improved; tiny ulceration anterior luque without drainage; stasis changes b/l shins) Comments: musculo - passive flexion/extension/rotation of right hip causes lateral hip pain; she has pain to palpation over the lateral aspect of hip and trochanteric bursal area; she also has paraspinal tenderness in the lumbar spine area on right; no anterior thigh pain or groin pain on right Laboratory Results Last 24 Hours Test 04/07/18 11:23 04/07/18 13:44 04/07/18 16:40 04/07/18 20:56 Bedside Glucose 121 mg/dl 134 mg/dl Troponin I 0.025 ng/ml Random Vancomycin Level 14.7 mcg/ml Test 04/07/18 21:00 04/08/18 04:27 04/08/18 07:24 04/08/18 08:15 Bedside Glucose 123 mg/dl 87 mg/dl White Blood Count 31.13 K/uL Red Blood Count 5.48 M/uL Hemoglobin 11.8 g/dL Hematocrit 38.3 % Mean Corpuscular Volume 69.9 fL Mean Corpuscular Hemoglobin 21.5 pg Mean Corpuscular Hemoglobin Concent 30.8 g/dl Platelet Count 85 K/uL Neutrophils (%) (Auto) 94.0 % Lymphocytes (%) (Auto) 2.2 % Monocytes (%) (Auto) 3.1 % Eosinophils (%) (Auto) 0.1 % Basophils (%) (Auto) 0.0 % Neutrophils # (Auto) 29.27 K/uL Lymphocytes # (Auto) 0.68 K/uL Monocytes # (Auto) 0.96 K/uL Eosinophils # (Auto) 0.02 K/uL Basophils # (Auto) 0.01 K/uL RDW Standard Deviation 58.0 fL RDW Coefficient of Variation 24.8 % Immature Granulocyte % (Auto) 0.6 % Immature Granulocyte # (Auto) 0.19 K/uL Hypersegmented Polys 1+ Platelet Estimate DECREASED Hypochromasia PRESENT Anisocytosis PRESENT Microcytosis PRESENT Ovalocytes 1+ Echinocytes 1+ Prothrombin Time 35.4 SECONDS Prothromb Time International Ratio 3.5 Sodium Level 141 mmol/L Potassium Level 4.3 mmol/L Chloride Level 106 mmol/L Carbon Dioxide Level 28 mmol/L Anion Gap 7.0 mmol/L Blood Urea Nitrogen 41 mg/dl Creatinine 1.54 mg/dl Est Creatinine Clear Calc Drug Dose 45.4 ml/min Estimated GFR () 38.4 Estimated GFR (Non- 33.1 BUN/Creatinine Ratio 26.5 Random Glucose 111 mg/dl Calcium Level 7.4 mg/dl Phosphorus Level 4.4 mg/dl Magnesium Level 2.2 mg/dl Thyroid Stimulating Hormone (TSH) 0.331 uIu/ml Assessment and Plan 72yo female with: 1. septic shock presumably 2nd to RLE cellulitis. Improved/resolving. Pressors weaned off this am. ICU attending has narrowed her IV abx Blood cultures negative. Cortisol level pending for this am. 2. acute kidney injury - likely sepsis-associated ATN - IMPROVED. UOP adequate , Cr trending down. Supportive care measures;appreciate nephrology consultation. BMP in am. 3. morbid obesity with BMI 52.6. 4. chronic hypoxic/hypercarbic resp failure on home O2 - stable, continue NC O2 daytime and CPAP at HS. 5. COPD - not in exacerbation at this time. Remains on low-dose prednisone. Mild wheezes this am - could be early pulmonary edema vs her COPD or both. Inhalers, etc. 6. atrial flutter - INR is >3 - coumadin on hold. Rates trending up. She typically takes metoprolol TID at home. Resume these if BP will permit. 7. JONATHON - CPAP HS. 8. hypothyroidism - TSH 06/2017 wnl; cont synthroid. TSH wnl this am. 9. T2DM - glycemic pharmacy consult placed by ICU. Appreciate their assistance. Controlled. 10. positive troponin - myocardial demand ischemia in setting of #1. ECHO w/o wall motion abnormalities. 11. CKD stage 3 - baseline Cr about 1.5/1.7. Creatinine today at baseline. 12. chronic diastolic CHF - could be early decompensation. Consider diuretic therapy to maintain even I/O balance or negative. 13. ?PAD RLE - consider vascular surgery consult once renal function improves and she is off pressors. I can appreciate pulses in the right foot, however, and cap refill is improved today (about 2 seconds). 14. right fibula fracture - orthopedics consulted for management. Nonoperative at this time. 15. hyperkalemia - resolved. 16. h/o CAD - noted; no ischemic symptoms at this time. 17. leukocytosis - severe - normal WBC count on 03/28/18. Likely leukamoid reaction to septic shock. Serial cbc's. It is improved today. 18. right hip pain - obtain right hip and pelvic x-rays, r/o fracture. will continue to follow Continued [facility] stay due to: abnormal vital signs, inadequate po fluid intake, voiding difficulties, ambulation difficulties, multiple IV medications needed Discharge planning: uncertain
[2018-04-08] MEDS: TIOTROPIUM BROMIDE 5 PUFF/90 MCG INH INH SCH (08:40)
[2018-04-08] MEDS: SERTRALINE HCL 100 MG TAB PO SCH (08:41)
[2018-04-08] MEDS: DOCUSATE SODIUM 100 MG CAP PO SCH (08:41)
[2018-04-08] MEDS: PANTOprazole SOD 40 MG TAB PO SCH (08:41)
[2018-04-08] MEDS: ASPIRIN 81 MG ECTAB PO SCH (08:42)
[2018-04-08] MEDS: ROSUVASTATIN CALCIUM 10 MG TAB PO SCH (08:42)
[2018-04-08] MEDS: MAGNESIUM OXIDE 400 MG TAB PO SCH (08:42)
[2018-04-08] MEDS: PREGABALIN 150 MG CAP PO SCH (08:44)
[2018-04-08] MEDS: ANASTROZOLE 1 MG TAB PO SCH (08:45)
[2018-04-08] MEDS ORDERED: CONSULT PHARMACY PRN (09:24)
--- NOTE | 2018-04-08 10:13 | Critical Care Progress Note ---
Critical Care Progress Note Date of Service Apr 08, 2018. Attending Dr. Hood Subjective Patient is awake and alert without complaints. Pain is well controlled, she is taking regular food and denies dyspnea. A boot has been applied to her right leg per recommendations of orthopedics. Objective Results Past 24 Hours Test 04/07/18 11:23 04/07/18 13:44 04/07/18 16:40 04/07/18 20:56 Range/Units Bedside Glucose 121 134 70-90 mg/dl Troponin I 0.025 0-0.045 ng/ml Random Vancomycin Level 14.7 mcg/ml Test 04/07/18 21:00 04/08/18 04:27 04/08/18 07:24 04/08/18 08:33 Range/Units Bedside Glucose 123 87 70-90 mg/dl White Blood Count 31.13 4.8-10.8 K/uL Red Blood Count 5.48 4.2-5.4 M/uL Hemoglobin 11.8 12.0-16.0 g/dL Hematocrit 38.3 37-47 % Mean Corpuscular Volume 69.9 80-100 fL Mean Corpuscular Hemoglobin 21.5 25-34 pg Mean Corpuscular Hemoglobin Concent 30.8 32-36 g/dl Platelet Count 85 130-400 K/uL Neutrophils (%) (Auto) 94.0 % Lymphocytes (%) (Auto) 2.2 % Monocytes (%) (Auto) 3.1 % Eosinophils (%) (Auto) 0.1 % Basophils (%) (Auto) 0.0 % Neutrophils # (Auto) 29.27 1.4-6.5 K/uL Lymphocytes # (Auto) 0.68 1.2-3.4 K/uL Monocytes # (Auto) 0.96 0.11-0.59 K/uL Eosinophils # (Auto) 0.02 0-0.5 K/uL Basophils # (Auto) 0.01 0-0.2 K/uL RDW Standard Deviation 58.0 36.4-46.3 fL RDW Coefficient of Variation 24.8 11.5-14.5 % Immature Granulocyte % (Auto) 0.6 % Immature Granulocyte # (Auto) 0.19 0.00-0.02 K/uL Hypersegmented Polys 1+ Platelet Estimate DECREASED Hypochromasia PRESENT Anisocytosis PRESENT Microcytosis PRESENT Ovalocytes 1+ Echinocytes 1+ Prothrombin Time 35.4 9.0-12.0 SECONDS Prothromb Time International Ratio 3.5 0.9-1.1 Sodium Level 141 136-145 mmol/L Potassium Level 4.3 3.5-5.1 mmol/L Chloride Level 106 98-107 mmol/L Carbon Dioxide Level 28 21-32 mmol/L Anion Gap 7.0 3-11 mmol/L Blood Urea Nitrogen 41 7-18 mg/dl Creatinine 1.54 0.60-1.20 mg/dl Est Creatinine Clear Calc Drug Dose 45.4 ml/min Estimated GFR () 38.4 Estimated GFR (Non- 33.1 BUN/Creatinine Ratio 26.5 10-20 Random Glucose 111 70-99 mg/dl Calcium Level 7.4 8.5-10.1 mg/dl Phosphorus Level 4.4 2.5-4.9 mg/dl Magnesium Level 2.2 1.8-2.4 mg/dl Thyroid Stimulating Hormone (TSH) 0.331 0.300-4.500 uIu/ml Random Cortisol 12.78 mcg/dl General Appearance: Resting comfortably Head: normocephalic, atraumatic Eyes: PERRLA ENT: CPAP mask in place Neck: normal range of motion, no tenderness, no stridor, other (Redundant soft tissues) Respiratory: other (Difficult exam, distant heart sounds) Cardiovasular: abnormal pulses (1+4 extremities), other (Difficult exam) Abdomen: non tender, other (Difficult exam) Genitourinary - Female: other (Greco catheter present) Lower Extremities: other (Cellulitis and hyperemia of the right lower extremity ) Edema: Bilateral LE (1+) Neuro: alert, oriented x 3 Psychiatric: normal affect Assessment & Plan (1) Atrial fibrillation and flutter Rate currently 129, rhythm appears to be atrial flutter. She is off of Levophed. Metoprolol currently held for low blood pressure hopefully can restart later today. Will recheck INR.. (2) Closed right fibular fracture Orthopedics recommends conservative treatment and boot has been applied. We will x-ray her hips to exclude fracture. (3) JONATHON (obstructive sleep apnea) She is currently using her home CPAP machine. (4) Cellulitis of right leg continue cefazolin Consults & Procedures Consultants: Nephrology Orthopedics Procedures: Right IJ CVL 04/06/18 Data Medications: Current Inpatient Medications Medications (Trade) Dose Ordered Sig/Isidoro Route Start Time Stop Time Status Last Admin Dose Admin Norepinephrine Bitartrate 8 mg/ Dextrose 508 ml @ 0 mls/hr Q0M PRN IV 04/06/18 21:47 05/06/18 21:46 04/07/18 17:51 10.7 MLS/HR Miscellaneous Information ([facility] Protocol For Hyperglycemia) 1 ea PRN PRN N/A 04/06/18 22:00 04/08/18 21:59 Glucose (Glucose 40% Gel) 15-30 GRAMS 15 GRAMS... UD PRN PO 04/06/18 22:00 05/06/18 21:59 Glucose (Glucose Chew Tab) 4-8 Tablets 4 Tabl... UD PRN PO 04/06/18 22:00 05/06/18 21:59 Dextrose (Dextrose 50% 50ML Syringe) 25-50ML 25ML FOR ... UD PRN IV 04/06/18 22:00 05/06/18 21:59 Glucagon (Glucagon Inj) 1 mg UD PRN SQ 04/06/18 22:00 05/06/18 21:59 Carbohydrates (Carbohydrates For Hypoglycemia) 15-30 GRAMS 15 grams if BSG 54-69... UD PRN PO 04/06/18 22:00 05/06/18 21:59 Miscellaneous Information (Consult Glycemic Management Pharmacy) 1 ea UD PRN N/A 04/06/18 22:17 05/06/18 22:16 Anastrozole (Arimidex Tab) 1 mg DAILY PO 04/07/18 09:00 05/07/18 08:59 04/08/18 08:45 1 MG Aspirin (Ecotrin Tab) 81 mg QAM PO 04/07/18 09:00 05/07/18 08:59 04/08/18 08:42 81 MG Docusate Sodium (coLACE CAP) 100 mg DAILY PO 04/07/18 09:00 05/07/18 08:59 04/08/18 08:41 100 MG Levothyroxine Sodium (Synthroid Tab) 112 mcg DAILYBB PO 04/07/18 06:00 05/07/18 05:59 04/08/18 06:08 112 MCG Magnesium Oxide (Mag-Ox Tab) 400 mg DAILY PO 04/07/18 09:00 05/07/18 08:59 04/08/18 08:42 400 MG Pantoprazole Sodium (Protonix Tab) 40 mg DAILY PO 04/07/18 09:00 05/07/18 08:59 04/08/18 08:41 40 MG Rosuvastatin Calcium (Crestor Tab) 10 mg DAILY PO 04/07/18 09:00 05/07/18 08:59 04/08/18 08:42 10 MG Sertraline HCl (Zoloft Tab) 150 mg DAILY PO 04/07/18 09:00 05/07/18 08:59 04/08/18 08:41 150 MG Tiotropium [place] (Spiriva Handihaler Inhaler) 1 puff QAM INH 04/07/18 09:00 05/07/18 08:59 04/08/18 08:40 1 PUFF Cefazolin Sodium 500 mg/Syringe 3.75 ml @ 2.5 mls/min Q12H IV 04/07/18 17:00 04/17/18 16:59 04/08/18 04:47 2.5 MLS/MIN Prednisone (PredniSONE TAB) 20 mg Q24H PO 04/07/18 13:30 04/09/18 13:31 04/07/18 15:11 20 MG Prednisone (PredniSONE TAB) 10 mg Q24H PO 04/10/18 13:30 04/12/18 13:31 Pregabalin (Lyrica Cap) 75 mg HS PO 04/07/18 21:00 05/07/18 20:59 04/07/18 21:11 75 MG Pregabalin (Lyrica Cap) 150 mg QAM PO 04/08/18 09:00 05/08/18 08:59 04/08/18 08:44 150 MG Insulin Aspart (novoLOG ASPART) SLIDING SCALE IF C... ACHS SC 04/07/18 16:00 05/07/18 15:59 Acetaminophen/ Hydrocodone Bitart ([place] 5/325 Tab) 1 tab Q6H PRN PO 04/07/18 19:45 04/21/18 19:44 04/08/18 04:37 1 TAB Heparin Sodium (Porcine) (Heparin 10 Unit/ ml 5 ml Flush) 5 ml PRN PRN FLUSH 04/07/18 23:00 05/07/18 22:59 Miscellaneous Information (Pharmacy Consult) 1 ea UD PRN N/A 04/08/18 09:24 05/08/18 09:23 UNV Albuterol/ Ipratropium (Combivent Respimat Inh) 1 puffs QIDR INH 04/08/18 09:00 05/08/18 08:59 Vital Signs: Date Time Temp Pulse Resp B/P (MAP) Pulse Ox O2 Delivery O2 Flow Rate FiO2 04/08/18 06:00 101 20 108/80 (89) 95 Nasal Cannula 4.0 04/08/18 04:00 37.0 102 14 107/74 (85) 93 CPAP 6.0 04/08/18 02:00 100 20 86/66 (73) 92 CPAP 6.0 04/08/18 00:01 36.8 100 14 93/60 (71) 92 CPAP 6.0 04/07/18 23:59 CPAP 6.0 04/07/18 22:00 75 16 91/57 (68) 93 CPAP 6.0 04/07/18 20:00 36.6 80 15 110/73 (85) 94 Nasal Cannula 4.0 04/07/18 18:10 83 19 97/68 (78) 95 Nasal Cannula 4.0 04/07/18 18:02 83 25 78/63 (68) 93 Nasal Cannula 4.0 04/07/18 17:31 93 18 87/56 (66) 93 Nasal Cannula 4.0 04/07/18 17:01 101 13 83/48 (60) 92 Nasal Cannula 4.0 04/07/18 16:31 100 19 94/65 (75) 95 Nasal Cannula 4.0 04/07/18 16:00 36.6 97 16 92/61 (71) 92 Nasal Cannula 4.0 04/07/18 15:01 84 13 83/50 (61) 95 Nasal Cannula 4.0 04/07/18 14:55 83 19 101/62 (75) 95 Nasal Cannula 4.0 04/07/18 14:38 88 15 79/50 (60) 92 Nasal Cannula 4.0 04/07/18 14:31 84 21 75/48 (57) 92 Nasal Cannula 4.0 04/07/18 14:00 88 13 122/58 (79) 93 Nasal Cannula 4.0 04/07/18 12:32 75 12 106/64 (78) 93 Nasal Cannula 4.0 04/07/18 12:00 36.4 82 13 99/74 (82) 93 Nasal Cannula 4.0 04/07/18 11:00 82 25 118/81 (93) 94 Nasal Cannula 4.0 04/07/18 10:32 74 18 103/61 (75) 94 Nasal Cannula 4.0 04/07/18 10:03 65 15 84/69 (74) 94 CPAP 6.0 Laboratory Results: Last 24 Hours Test 04/07/18 11:23 04/07/18 13:44 04/07/18 16:40 04/07/18 20:56 Bedside Glucose 121 mg/dl 134 mg/dl Troponin I 0.025 ng/ml Random Vancomycin Level 14.7 mcg/ml Test 04/07/18 21:00 04/08/18 04:27 04/08/18 07:24 04/08/18 08:33 Bedside Glucose 123 mg/dl 87 mg/dl White Blood Count 31.13 K/uL Red Blood Count 5.48 M/uL Hemoglobin 11.8 g/dL Hematocrit 38.3 % Mean Corpuscular Volume 69.9 fL Mean Corpuscular Hemoglobin 21.5 pg Mean Corpuscular Hemoglobin Concent 30.8 g/dl Platelet Count 85 K/uL Neutrophils (%) (Auto) 94.0 % Lymphocytes (%) (Auto) 2.2 % Monocytes (%) (Auto) 3.1 % Eosinophils (%) (Auto) 0.1 % Basophils (%) (Auto) 0.0 % Neutrophils # (Auto) 29.27 K/uL Lymphocytes # (Auto) 0.68 K/uL Monocytes # (Auto) 0.96 K/uL Eosinophils # (Auto) 0.02 K/uL Basophils # (Auto) 0.01 K/uL RDW Standard Deviation 58.0 fL RDW Coefficient of Variation 24.8 % Immature Granulocyte % (Auto) 0.6 % Immature Granulocyte # (Auto) 0.19 K/uL Hypersegmented Polys 1+ Platelet Estimate DECREASED Hypochromasia PRESENT Anisocytosis PRESENT Microcytosis PRESENT Ovalocytes 1+ Echinocytes 1+ Prothrombin Time 35.4 SECONDS Prothromb Time International Ratio 3.5 Sodium Level 141 mmol/L Potassium Level 4.3 mmol/L Chloride Level 106 mmol/L Carbon Dioxide Level 28 mmol/L Anion Gap 7.0 mmol/L Blood Urea Nitrogen 41 mg/dl Creatinine 1.54 mg/dl Est Creatinine Clear Calc Drug Dose 45.4 ml/min Estimated GFR () 38.4 Estimated GFR (Non- 33.1 BUN/Creatinine Ratio 26.5 Random Glucose 111 mg/dl Calcium Level 7.4 mg/dl Phosphorus Level 4.4 mg/dl Magnesium Level 2.2 mg/dl Thyroid Stimulating Hormone (TSH) 0.331 uIu/ml Random Cortisol 12.78 mcg/dl
--- NOTE | 2018-04-08 11:09 | DIAGNOSTIC IMAGING REPORT ---
R HIP UNILATERAL 2 VIEWS CLINICAL HISTORY: 72 years-old Female presenting with right hip pain s/p fall . TECHNIQUE: Frontal and frog-leg lateral views of the right hip were obtained. COMPARISON: CT from 03/17/2018. FINDINGS: Image quality is significantly degraded by patient body habitus limiting diagnostic sensitivity. Right hip joint congruent. Joint spaces grossly preserved. Visualized portion of the bony pelvis grossly intact. Surgical clips project over the right inguinal region. The appearance on frog-leg lateral view is suspicious for a femoral neck fracture. IMPRESSION: Extremely limited image quality due to patient body habitus limiting the diagnostic sensitivity the exam. Allowing for this, findings raise concern for a femoral neck fracture. Further evaluation with pelvic CT to be considered. Electronically signed by: Sammy Armstrong M.D. 04/08/2018 11:07 AM Dictated Date/Time: 04/08/2018 11:04 AM
--- NOTE | 2018-04-08 11:13 | Nephrology Progress Note ---
Nephrology Progress Note Date of Service Apr 08, 2018. Chief Complaint Follow-up for ELMER, Hyperkalemia with h/o CKD Subjective Edel was seen and examined in her room this morning. No overnight events. She denies any shortness of breath or chest pain. Remain non-oliguric. Renal function improve significantly, creatinine 1.5. Blood pressure stable. Review of Systems A complete review of systems was performed. Pertinent positives are noted above. All other systems are negative. Vital Signs Last 8 Hrs Date Time Temp Pulse Resp B/P (MAP) Pulse Ox O2 Delivery O2 Flow Rate FiO2 04/08/18 06:00 101 20 108/80 (89) 95 Nasal Cannula 4.0 04/08/18 04:00 37.0 102 14 107/74 (85) 93 CPAP 6.0 04/08/18 02:00 100 20 86/66 (73) 92 CPAP 6.0 Last Recorded Weight Weight (Kilograms): 139.200 Physical Exam GENERAL: Elderly female, AAA x 3, pleasant, healthy-appearing, not in any distress. NECK: Supple, no JVD. RESPIRATORY: Normal breathing efforts, no accessory muscle use, clear to auscultation bilaterally, no wheezes or rales. CARDIOVASCULAR: S1, S2 normal, rate rhythm regular. EXTREMITY: No lower extremity edema NEURO: speech fluent. PSYCHIATRY: Normal mood and judgment Family History Patient reports no known family medical history. Social History Smokeless Tobacco Use: No Alcohol Use: none Drug Use: none Marital Status: Housing Status: lives with family Occupation: retired Laboratory Results Past 24 Hours 04/08/18 04:27 Red Blood Count 5.48, Mean Corpuscular Volume 69.9, Mean Corpuscular Hemoglobin 21.5, Mean Corpuscular Hemoglobin Concent 30.8, Neutrophils (%) (Auto) 94.0, Lymphocytes (%) (Auto) 2.2, Monocytes (%) (Auto) 3.1, Eosinophils (%) (Auto) 0.1 , Basophils (%) (Auto) 0.0, Neutrophils # (Auto) 29.27, Lymphocytes # (Auto) 0.68, Monocytes # (Auto) 0.96, Eosinophils # (Auto) 0.02, Basophils # (Auto) 0.01 04/08/18 04:27 Test 04/07/18 11:23 04/07/18 13:44 04/07/18 16:40 04/07/18 20:56 Bedside Glucose 121 mg/dl (70-90) 134 mg/dl (70-90) Troponin I 0.025 ng/ml (0-0.045) Random Vancomycin Level 14.7 mcg/ml Test 04/07/18 21:00 04/08/18 04:27 04/08/18 07:24 04/08/18 08:33 Bedside Glucose 123 mg/dl (70-90) 87 mg/dl (70-90) White Blood Count 31.13 K/uL (4.8-10.8) Red Blood Count 5.48 M/uL (4.2-5.4) Hemoglobin 11.8 g/dL (12.0-16.0) Hematocrit 38.3 % (37-47) Mean Corpuscular Volume 69.9 fL (80-100) Mean Corpuscular Hemoglobin 21.5 pg (25-34) Mean Corpuscular Hemoglobin Concent 30.8 g/dl (32-36) Platelet Count 85 K/uL (130-400) Neutrophils (%) (Auto) 94.0 % Lymphocytes (%) (Auto) 2.2 % Monocytes (%) (Auto) 3.1 % Eosinophils (%) (Auto) 0.1 % Basophils (%) (Auto) 0.0 % Neutrophils # (Auto) 29.27 K/uL (1.4-6.5) Lymphocytes # (Auto) 0.68 K/uL (1.2-3.4) Monocytes # (Auto) 0.96 K/uL (0.11-0.59) Eosinophils # (Auto) 0.02 K/uL (0-0.5) Basophils # (Auto) 0.01 K/uL (0-0.2) RDW Standard Deviation 58.0 fL (36.4-46.3) RDW Coefficient of Variation 24.8 % (11.5-14.5) Immature Granulocyte % (Auto) 0.6 % Immature Granulocyte # (Auto) 0.19 K/uL (0.00-0.02) Hypersegmented Polys 1+ Platelet Estimate DECREASED Hypochromasia PRESENT Anisocytosis PRESENT Microcytosis PRESENT Ovalocytes 1+ Echinocytes 1+ Prothrombin Time 35.4 SECONDS (9.0-12.0) Prothromb Time International Ratio 3.5 (0.9-1.1) Anion Gap 7.0 mmol/L (3-11) Est Creatinine Clear Calc Drug Dose 45.4 ml/min Estimated GFR () 38.4 Estimated GFR (Non- 33.1 BUN/Creatinine Ratio 26.5 (10-20) Calcium Level 7.4 mg/dl (8.5-10.1) Phosphorus Level 4.4 mg/dl (2.5-4.9) Magnesium Level 2.2 mg/dl (1.8-2.4) Thyroid Stimulating Hormone (TSH) 0.331 uIu/ml (0.300-4.500) Allergies Coded Allergies: Melatonin (Verified Allergy, Severe, RASH, 03/17/18) Penicillins (Verified Allergy, Unknown, UNLNOWN, 03/17/18) Medications Current Inpatient Medications Medications (Trade) Dose Ordered Sig/Isidoro Route Start Time Stop Time Status Last Admin Dose Admin Norepinephrine Bitartrate 8 mg/ Dextrose 508 ml @ 0 mls/hr Q0M PRN IV 04/06/18 21:47 05/06/18 21:46 04/07/18 17:51 10.7 MLS/HR Miscellaneous Information ([facility] Protocol For Hyperglycemia) 1 ea PRN PRN N/A 04/06/18 22:00 04/08/18 21:59 Glucose (Glucose 40% Gel) 15-30 GRAMS 15 GRAMS... UD PRN PO 04/06/18 22:00 05/06/18 21:59 Glucose (Glucose Chew Tab) 4-8 Tablets 4 Tabl... UD PRN PO 04/06/18 22:00 05/06/18 21:59 Dextrose (Dextrose 50% 50ML Syringe) 25-50ML 25ML FOR ... UD PRN IV 04/06/18 22:00 05/06/18 21:59 Glucagon (Glucagon Inj) 1 mg UD PRN SQ 04/06/18 22:00 05/06/18 21:59 Carbohydrates (Carbohydrates For Hypoglycemia) 15-30 GRAMS 15 grams if BSG 54-69... UD PRN PO 04/06/18 22:00 05/06/18 21:59 Miscellaneous Information (Consult Glycemic Management Pharmacy) 1 ea UD PRN N/A 04/06/18 22:17 05/06/18 22:16 Anastrozole (Arimidex Tab) 1 mg DAILY PO 04/07/18 09:00 05/07/18 08:59 04/08/18 08:45 1 MG Aspirin (Ecotrin Tab) 81 mg QAM PO 04/07/18 09:00 05/07/18 08:59 04/08/18 08:42 81 MG Docusate Sodium (coLACE CAP) 100 mg DAILY PO 04/07/18 09:00 05/07/18 08:59 04/08/18 08:41 100 MG Levothyroxine Sodium (Synthroid Tab) 112 mcg DAILYBB PO 04/07/18 06:00 05/07/18 05:59 04/08/18 06:08 112 MCG Magnesium Oxide (Mag-Ox Tab) 400 mg DAILY PO 04/07/18 09:00 05/07/18 08:59 04/08/18 08:42 400 MG Pantoprazole Sodium (Protonix Tab) 40 mg DAILY PO 04/07/18 09:00 05/07/18 08:59 04/08/18 08:41 40 MG Rosuvastatin Calcium (Crestor Tab) 10 mg DAILY PO 04/07/18 09:00 05/07/18 08:59 04/08/18 08:42 10 MG Sertraline HCl (Zoloft Tab) 150 mg DAILY PO 04/07/18 09:00 05/07/18 08:59 04/08/18 08:41 150 MG Tiotropium [place] (Spiriva Handihaler Inhaler) 1 puff QAM INH 04/07/18 09:00 05/07/18 08:59 04/08/18 08:40 1 PUFF Cefazolin Sodium 500 mg/Syringe 3.75 ml @ 2.5 mls/min Q12H IV 04/07/18 17:00 04/17/18 16:59 04/08/18 04:47 2.5 MLS/MIN Prednisone (PredniSONE TAB) 20 mg Q24H PO 04/07/18 13:30 04/09/18 13:31 04/07/18 15:11 20 MG Prednisone (PredniSONE TAB) 10 mg Q24H PO 04/10/18 13:30 04/12/18 13:31 Pregabalin (Lyrica Cap) 75 mg HS PO 04/07/18 21:00 05/07/18 20:59 04/07/18 21:11 75 MG Pregabalin (Lyrica Cap) 150 mg QAM PO 04/08/18 09:00 05/08/18 08:59 04/08/18 08:44 150 MG Insulin Aspart (novoLOG ASPART) SLIDING SCALE IF C... ACHS SC 04/07/18 16:00 05/07/18 15:59 Acetaminophen/ Hydrocodone Bitart ([employer] 5/325 Tab) 1 tab Q6H PRN PO 04/07/18 19:45 04/21/18 19:44 04/08/18 04:37 1 TAB Heparin Sodium (Porcine) (Heparin 10 Unit/ ml 5 ml Flush) 5 ml PRN PRN FLUSH 04/07/18 23:00 05/07/18 22:59 Miscellaneous Information (Pharmacy Consult) 1 ea NOW STAT N/A 04/08/18 08:15 04/08/18 08:16 UNV Albuterol/ Ipratropium (Combivent Respimat Inh) 1 puffs QID INH 04/08/18 09:00 05/08/18 08:59 UNV Impression 72 year female with baseline ambulatory dysfunction, uses wheelchair mostly for ambulation with history of recurrent fall admitted to the hospital with sepsis started on empiric antibiotic. Has stage IIIB chronic kidney disease with variable creatinine form 1.5-1.7, on admission found to have acute kidney injury creatinine was 2.6 which slightly improved and creatinine was 2.2 this morning. She has been non-oliguric. Electrolyte acceptable. Blood pressure remain relatively low, on IV fluid and pressor. Has hyperkalemia. ELMER mostly hemodynamically mediated with persistent hypotension and sepsis. Hyperkalemia with KCL supplement, Spironolactone and ELMER Recommendations -- Renal function continues to improve, creatinine now at baseline. Electrolyte acceptable. Non-oliguric. Blood pressure well controlled. -- avoid nephrotoxic medications -- encourage adequate p.o. intake -- monitor renal function daily while inpatient Will follow
--- NOTE | 2018-04-08 11:17 | DIAGNOSTIC IMAGING REPORT ---
PELVIS 1 OR 2 VIEW ROUTINE HISTORY: 72 years-old Female right hip pain/pelvic pain s/p fall acute right hip and pelvic pain status post fall COMPARISON: Right hip radiographs of same day, pelvic radiograph 03/17/2018 TECHNIQUE: AP view of the pelvis FINDINGS: Study is limited secondary to underpenetration of the film secondary to patient body habitus. 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 Degenerative changes of the SI joints and lumbar spine are also noted. No definite acute fracture or dislocation. Surgical clips are again seen projecting over the bilateral inguinal regions. IMPRESSION: Limited exam without acute fracture or dislocation identified. The above report was generated using voice recognition software. It may contain grammatical, syntax or spelling errors. Electronically signed by: Brandin Dietz M.D. 04/08/2018 11:15 AM Dictated Date/Time: 04/08/2018 11:13 AM
[2018-04-08] MEDS: IPRATROPIUM BROMIDE/ALBUTEROL respimat INH INH SCH ×4 (11:30→19:37)
[2018-04-08] MEDS ORDERED: IPRATROPIUM BROMIDE/ALBUTEROL respimat INH INH SCH (12:00)
--- NOTE | 2018-04-08 12:41 | DIAGNOSTIC IMAGING REPORT ---
PELVIS NO IV/ORAL CONT (CT) CLINICAL HISTORY: 72 years-old Female presenting with ?right femoral neck fracture on x-rays; eval for right hip fx. TECHNIQUE: Multidetector CT of the pelvis was performed without the use of intravenous contrast. IV contrast: None. A dose lowering technique was used consistent with the principles of ALARA (as low as reasonably achievable). COMPARISON: 03/17/2018. CT DOSE (mGy.cm): The estimated cumulative dose is 814.66 mGycm. FINDINGS: [employer] topogram: Unremarkable. Mild degenerative changes of the bilateral hips. The hip joints are congruent. No femoral neck fracture. Bony pelvis intact. Sacroiliac joints with mild degenerative change. Sacrum intact. Degenerative changes of the lower lumbar spine. Atherosclerosis of the distal abdominal aorta and iliac vessels. 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 The urinary bladder is decompressed with a Greco catheter. No bowel obstruction. No free fluid in the pelvis. Image quality is limited by body habitus. The uterus is surgically absent. No adnexal masses. Superficial soft tissues of the pelvis within normal limits. A fat-containing ventral hernia is noted. IMPRESSION: 1. No acute osseous injury of the pelvis or femoral necks. 2. Mild degenerative changes of the hips, sacrum joints, and lower lumbar spine. Electronically signed by: Samym Armstrong M.D. 04/08/2018 12:40 PM Dictated Date/Time: 04/08/2018 12:37 PM
[2018-04-08] MEDS: CEFAZOLIN IV 1,000 MG in SYRINGE 0 ML IV SCH ×2 (13:06→19:39)
[2018-04-08] MEDS: METOPROLOL TARTRATE 25 MG TAB PO SCH ×2 (13:59→19:39)
[2018-04-08] MEDS: PREGABALIN 75 MG CAP PO SCH (19:41)
[2018-04-09] VITALS (14 sets, daily range): BP systolic 101–137; BP diastolic 60–108; PULSE 77–116; TEMP 36.4–36.8; O2SAT 90–98
[2018-04-09] MEDS: LEVOTHYROXINE 112 MCG TAB PO SCH (03:56)
[2018-04-09] MEDS: CEFAZOLIN IV 1,000 MG in SYRINGE 0 ML IV SCH ×3 (03:56→20:45)
[2018-04-09] MEDS: HYDROCODONE/ACETAMIN 5/325MG TAB PO PRN (04:00)
[2018-04-09 04:54] LABS: INR 1.7 (0.9-1.1)
[2018-04-09 05:10] LABS: HEMATOCRIT 36.3 % (37-47); MEAN CELL VOLUME 70.5 fL (80-100); MEAN CORPUSCULAR HEMOGLOBIN 21.4 pg (25-34); MEAN CORPUSCULAR HGB CONC 30.3 g/dl (32-36); PLATELET COUNT 71 K/uL (130-400); RED CELL DISTRIBUTION WIDTH CV 24.8 % (11.5-14.5); WHITE BLOOD COUNT 18.91 K/uL (4.8-10.8)
[2018-04-09 05:29] LABS: EOS % 0.1 %; EOS ABS # 0.01 K/uL (0-0.5); IG# 0.06 K/uL (0.00-0.02); LYMPH % 2.5 %; LYMPH ABS # 0.48 K/uL (1.2-3.4); MONO % 1.8 %; MONO ABS # 0.34 K/uL (0.11-0.59); NEUT % 95.3 %; NEUT ABS # 18.02 K/uL (1.4-6.5)
[2018-04-09 05:40] LABS: CALCIUM 7.4 mg/dl (8.5-10.1); CREATININE 1.65 mg/dl (0.60-1.20); PHOSPHORUS 3.5 mg/dl (2.5-4.9); POTASSIUM 4.4 mmol/L (3.5-5.1)
[2018-04-09] MEDS: INSULIN ASPART 100 UNITS/ML 3 ML PEN SC SCH ×4 (06:45→20:46)
[2018-04-09] MEDS: TIOTROPIUM BROMIDE 5 PUFF/90 MCG INH INH SCH (08:05)
[2018-04-09] MEDS: IPRATROPIUM BROMIDE/ALBUTEROL respimat INH INH SCH ×4 (08:05→20:45)
[2018-04-09] MEDS: DOCUSATE SODIUM 100 MG CAP PO SCH (08:15)
[2018-04-09] MEDS: PANTOprazole SOD 40 MG TAB PO SCH (08:15)
[2018-04-09] MEDS: SERTRALINE HCL 100 MG TAB PO SCH (08:16)
[2018-04-09] MEDS: ROSUVASTATIN CALCIUM 10 MG TAB PO SCH (08:16)
[2018-04-09] MEDS: MAGNESIUM OXIDE 400 MG TAB PO SCH (08:16)
[2018-04-09] MEDS: ASPIRIN 81 MG ECTAB PO SCH (08:16)
[2018-04-09] MEDS: METOPROLOL TARTRATE 25 MG TAB PO SCH ×3 (08:17→20:45)
[2018-04-09] MEDS: PREGABALIN 150 MG CAP PO SCH (08:18)
[2018-04-09] MEDS: ANASTROZOLE 1 MG TAB PO SCH (08:31)
--- NOTE | 2018-04-09 10:11 | Nephrology Progress Note ---
Nephrology Progress Note Date of Service Apr 09, 2018. Chief Complaint Follow-up for ELMER, Hyperkalemia with h/o CKD Subjective Edel was seen and examined in his room. Overall she is feeling much better, denies shortness of breath or chest pain. Had a this morning. Remain non- oliguric we, has decent urine output. Blood pressure relatively soft but asymptomatic. Renal function stable with acceptable electrolytes. Review of Systems A complete review of systems was performed. Pertinent positives are noted above. All other systems are negative. Vital Signs Last 8 Hrs Date Time Temp Pulse Resp B/P (MAP) Pulse Ox O2 Delivery O2 Flow Rate FiO2 04/09/18 09:00 105 12 94 Nasal Cannula 4.0 04/09/18 08:44 Nasal Cannula 4.0 04/09/18 08:00 36.4 116 24 102/81 (88) 95 Nasal Cannula 4.0 04/09/18 07:00 98 13 94 Nasal Cannula 4.0 04/09/18 06:02 82 17 /108 (72) 95 Nasal Cannula 4.0 04/09/18 04:02 36.6 84 13 137/82 (100) 91 Nasal Cannula 4.0 Last Recorded Weight Weight (Kilograms): 139.200 Physical Exam GENERAL: Elderly female, AAA x 3, pleasant, ill-appearing, not in any distress. NECK: Supple, no JVD. RESPIRATORY: Normal breathing efforts, no accessory muscle use, clear to auscultation bilaterally, no wheezes or rales. CARDIOVASCULAR: S1, S2 normal, rate rhythm regular. EXTREMITY: Rt lower extremity edema and erythema, left LE edema NEURO: speech fluent. PSYCHIATRY: Normal mood and judgment Family History Patient reports no known family medical history. Social History Smokeless Tobacco Use: No Alcohol Use: none Drug Use: none Marital Status: Housing Status: lives with family Occupation: retired Laboratory Results Past 24 Hours 04/09/18 04:02 Red Blood Count 5.15, Mean Corpuscular Volume 70.5, Mean Corpuscular Hemoglobin 21.4, Mean Corpuscular Hemoglobin Concent 30.3, Neutrophils (%) (Auto) 95.3, Lymphocytes (%) (Auto) 2.5, Monocytes (%) (Auto) 1.8, Eosinophils (%) (Auto) 0.1 , Basophils (%) (Auto) 0.0, Neutrophils # (Auto) 18.02, Lymphocytes # (Auto) 0.48, Monocytes # (Auto) 0.34, Eosinophils # (Auto) 0.01, Basophils # (Auto) 0.00 04/09/18 04:02 Test 04/08/18 10:26 04/08/18 11:27 04/08/18 15:59 04/08/18 21:21 Ionized Calcium 1.04 mmol/l (1.12-1.32) Bedside Glucose 86 mg/dl (70-90) 104 mg/dl (70-90) 190 mg/dl (70-90) Test 04/09/18 00:12 04/09/18 04:02 04/09/18 06:03 Bedside Glucose 122 mg/dl (70-90) 114 mg/dl (70-90) White Blood Count 18.91 K/uL (4.8-10.8) Red Blood Count 5.15 M/uL (4.2-5.4) Hemoglobin 11.0 g/dL (12.0-16.0) Hematocrit 36.3 % (37-47) Mean Corpuscular Volume 70.5 fL (80-100) Mean Corpuscular Hemoglobin 21.4 pg (25-34) Mean Corpuscular Hemoglobin Concent 30.3 g/dl (32-36) Platelet Count 71 K/uL (130-400) Neutrophils (%) (Auto) 95.3 % Lymphocytes (%) (Auto) 2.5 % Monocytes (%) (Auto) 1.8 % Eosinophils (%) (Auto) 0.1 % Basophils (%) (Auto) 0.0 % Neutrophils # (Auto) 18.02 K/uL (1.4-6.5) Lymphocytes # (Auto) 0.48 K/uL (1.2-3.4) Monocytes # (Auto) 0.34 K/uL (0.11-0.59) Eosinophils # (Auto) 0.01 K/uL (0-0.5) Basophils # (Auto) 0.00 K/uL (0-0.2) RDW Standard Deviation 60.0 fL (36.4-46.3) RDW Coefficient of Variation 24.8 % (11.5-14.5) Immature Granulocyte % (Auto) 0.3 % Immature Granulocyte # (Auto) 0.06 K/uL (0.00-0.02) Platelet Estimate DECREASED Anisocytosis PRESENT Microcytosis PRESENT Spherocytes 1+ Echinocytes 1+ Prothrombin Time 17.4 SECONDS (9.0-12.0) Prothromb Time International Ratio 1.7 (0.9-1.1) Anion Gap 6.0 mmol/L (3-11) Est Creatinine Clear Calc Drug Dose 42.4 ml/min Estimated GFR () 35.3 Estimated GFR (Non- 30.5 BUN/Creatinine Ratio 23.6 (10-20) Calcium Level 7.4 mg/dl (8.5-10.1) Phosphorus Level 3.5 mg/dl (2.5-4.9) Magnesium Level 2.3 mg/dl (1.8-2.4) Allergies Coded Allergies: Melatonin (Verified Allergy, Severe, RASH, 03/17/18) Penicillins (Verified Allergy, Unknown, UNLNOWN, 03/17/18) Medications Current Inpatient Medications Medications (Trade) Dose Ordered Sig/Isidoro Route Start Time Stop Time Status Last Admin Dose Admin Glucose (Glucose 40% Gel) 15-30 GRAMS 15 GRAMS... UD PRN PO 04/06/18 22:00 05/06/18 21:59 Glucose (Glucose Chew Tab) 4-8 Tablets 4 Tabl... UD PRN PO 04/06/18 22:00 05/06/18 21:59 Dextrose (Dextrose 50% 50ML Syringe) 25-50ML 25ML FOR ... UD PRN IV 04/06/18 22:00 05/06/18 21:59 Glucagon (Glucagon Inj) 1 mg UD PRN SQ 04/06/18 22:00 05/06/18 21:59 Carbohydrates (Carbohydrates For Hypoglycemia) 15-30 GRAMS 15 grams if BSG 54-69... UD PRN PO 04/06/18 22:00 05/06/18 21:59 Miscellaneous Information (Consult Glycemic Management Pharmacy) 1 ea UD PRN N/A 04/06/18 22:17 05/06/18 22:16 Anastrozole (Arimidex Tab) 1 mg DAILY PO 04/07/18 09:00 05/07/18 08:59 04/09/18 08:31 1 MG Aspirin (Ecotrin Tab) 81 mg QAM PO 04/07/18 09:00 05/07/18 08:59 04/09/18 08:16 81 MG Docusate Sodium (coLACE CAP) 100 mg DAILY PO 04/07/18 09:00 05/07/18 08:59 04/09/18 08:15 100 MG Levothyroxine Sodium (Synthroid Tab) 112 mcg DAILYBB PO 04/07/18 06:00 05/07/18 05:59 04/09/18 03:56 112 MCG Magnesium Oxide (Mag-Ox Tab) 400 mg DAILY PO 04/07/18 09:00 05/07/18 08:59 04/09/18 08:16 400 MG Pantoprazole Sodium (Protonix Tab) 40 mg DAILY PO 04/07/18 09:00 05/07/18 08:59 04/09/18 08:15 40 MG Rosuvastatin Calcium (Crestor Tab) 10 mg DAILY PO 04/07/18 09:00 05/07/18 08:59 04/09/18 08:16 10 MG Sertraline HCl (Zoloft Tab) 150 mg DAILY PO 04/07/18 09:00 05/07/18 08:59 04/09/18 08:16 150 MG Tiotropium [place] (Spiriva Handihaler Inhaler) 1 puff QAM INH 04/07/18 09:00 05/07/18 08:59 04/09/18 08:05 1 PUFF Prednisone (PredniSONE TAB) 20 mg Q24H PO 04/07/18 13:30 04/09/18 13:31 04/08/18 13:59 20 MG Prednisone (PredniSONE TAB) 10 mg Q24H PO 04/10/18 13:30 04/12/18 13:31 Pregabalin (Lyrica Cap) 75 mg HS PO 04/07/18 21:00 05/07/18 20:59 04/08/18 19:41 75 MG Pregabalin (Lyrica Cap) 150 mg QAM PO 04/08/18 09:00 05/08/18 08:59 04/09/18 08:18 150 MG Insulin Aspart (novoLOG ASPART) SLIDING SCALE IF C... ACHS SC 04/07/18 16:00 05/07/18 15:59 04/08/18 22:18 1 UNITS Acetaminophen/ Hydrocodone Bitart ([place] 5/325 Tab) 1 tab Q6H PRN PO 04/07/18 19:45 04/21/18 19:44 04/09/18 04:00 1 TAB Heparin Sodium (Porcine) (Heparin 10 Unit/ ml 5 ml Flush) 5 ml PRN PRN FLUSH 04/07/18 23:00 05/07/18 22:59 Miscellaneous Information (Pharmacy Consult) 1 ea UD PRN N/A 04/08/18 09:24 05/08/18 09:23 Albuterol/ Ipratropium (Combivent Respimat Inh) 1 puffs QIDR INH 04/08/18 09:00 05/08/18 08:59 04/09/18 08:05 1 PUFFS Cefazolin Sodium 1000 mg/Syringe 7.5 ml @ 2.5 mls/min Q8H IV 04/08/18 13:00 04/17/18 23:59 04/09/18 03:56 2.5 MLS/MIN Metoprolol Tartrate (Lopressor Tab) 25 mg TID PO 04/08/18 14:00 05/08/18 13:59 04/09/18 08:17 25 MG Impression 72 year female with baseline ambulatory dysfunction, uses wheelchair mostly for ambulation with history of recurrent fall admitted to the hospital with sepsis started on empiric antibiotic. Has stage IIIB chronic kidney disease with variable creatinine form 1.5-1.7, on admission found to have acute kidney injury creatinine was 2.6 which slightly improved and creatinine was 2.2 this morning. She has been non-oliguric. Electrolyte acceptable. Blood pressure remain relatively low, on IV fluid and pressor. Has hyperkalemia. ELMER mostly hemodynamically mediated with persistent hypotension and sepsis. Hyperkalemia with KCL supplement, Spironolactone and ELMER Recommendations -- Renal function at baseline. Electrolyte acceptable. Non-oliguric. Blood pressure soft but asymptomatic -- Ok to resume torsemide at home dose ( 10 mg /d) -- avoid nephrotoxic medications -- encourage adequate p.o. intake -- monitor renal function daily while inpatient Will follow
[2018-04-09] MEDS: WARFARIN SOD 4 MG TAB PO SCH (15:40)
[2018-04-09] MEDS: PREGABALIN 75 MG CAP PO SCH (20:45)
[2018-04-10] VITALS (10 sets, daily range): BP systolic 91–131; BP diastolic 58–85; PULSE 70–97; TEMP 36.5–37; O2SAT 91–96
[2018-04-10] MEDS: HYDROCODONE/ACETAMIN 5/325MG TAB PO PRN ×2 (03:28→08:56)
[2018-04-10] MEDS: CEFAZOLIN IV 1,000 MG in SYRINGE 0 ML IV SCH ×3 (05:00→21:19)
[2018-04-10] MEDS: LEVOTHYROXINE 112 MCG TAB PO SCH (05:00)
--- NOTE | 2018-04-10 05:42 | Progress Note ---
Subjective Date of Service: Apr 09, 2018. Subjective Pt evaluation today including: conversation w/ patient, conversation w/ family (daughter by phone), physical exam, chart review, lab review, review of inpatient medication list Pain: distal right leg PO Intake: eating well Voiding: no voiding problems tele with improved a. flutter rates overnight during the visit she was sitting in chair she reported she "was doing well" she ambulated to the bathroom today feels stronger today Problem List Medical Problems: (1) Altered mental status Status: Acute (2) Anticoagulated on Coumadin Status: Acute (3) Cellulitis of right leg Status: Acute (4) Chronic kidney disease (CKD) Status: Acute (5) Left leg cellulitis Status: Acute (6) Respiratory failure Status: Acute (7) Respiratory failure, acute Status: Chronic (8) Septic shock Status: Acute (9) Shortness of breath Status: Acute (10) Syncope Status: Acute Review of Systems Constitutional: No fever, No chills Respiratory: No cough, No dyspnea at rest Cardiac: No chest pain Abdomen: No pain, No diarrhea Objective Vital Signs Date Time Temp Pulse Resp B/P (MAP) Pulse Ox O2 Delivery O2 Flow Rate FiO2 04/09/18 12:00 36.5 77 13 108/70 (83) 95 Nasal Cannula 4.0 04/09/18 10:01 101 16 115/81 (92) 95 Nasal Cannula 4.0 04/09/18 09:00 105 12 94 Nasal Cannula 4.0 04/09/18 08:44 Nasal Cannula 4.0 04/09/18 08:00 Nasal Cannula CPAP 04/09/18 08:00 36.4 116 24 102/81 (88) 95 Nasal Cannula 4.0 04/09/18 07:00 98 13 94 Nasal Cannula 4.0 04/09/18 06:02 82 17 /108 (72) 95 Nasal Cannula 4.0 04/09/18 04:02 36.6 84 13 137/82 (100) 91 Nasal Cannula 4.0 04/09/18 02:02 90 18 101/60 (74) 90 Nasal Cannula 4.0 04/09/18 00:11 36.8 91 21 116/77 (90) 91 Nasal Cannula 4.0 04/09/18 00:01 Nasal Cannula 4.0 04/08/18 21:01 36.8 91 21 132/87 (102) 93 Nasal Cannula 4.0 04/08/18 19:01 88 15 111/73 (86) 93 Nasal Cannula 4.0 04/08/18 18:01 36.7 95 17 122/76 (91) 93 Nasal Cannula 4.0 04/08/18 17:01 127 14 89/62 (71) 97 04/08/18 16:02 Nasal Cannula 4.0 04/08/18 15:27 36.7 124 16 99/67 (78) 95 Nasal Cannula 4.0 04/08/18 14:00 130 13 97/63 (74) 95 Nasal Cannula 4.0 Physical Exam General Appearance: no apparent distress, + obese ENT: pharynx normal Neck: no JVD Respiratory/Chest: no respiratory distress, no accessory muscle use, + wheezing (minimal end-exp) Cardiovascular: no gallop, no murmur, + irregularly irregular Abdomen: normal bowel sounds, non tender, soft, no organomegaly, + hernia ( umbilical - reducible ) Extremities: + pedal edema, + swelling (<1+ b/l ) Neurologic/Psychiatric: alert, oriented x 3 Skin: + pertinent finding (cellulitis, distal RLE luque - very mild/nearly resolved ) Laboratory Results Last 24 Hours Test 04/08/18 15:59 04/08/18 21:21 04/09/18 00:12 04/09/18 04:02 Bedside Glucose 104 mg/dl 190 mg/dl 122 mg/dl White Blood Count 18.91 K/uL Red Blood Count 5.15 M/uL Hemoglobin 11.0 g/dL Hematocrit 36.3 % Mean Corpuscular Volume 70.5 fL Mean Corpuscular Hemoglobin 21.4 pg Mean Corpuscular Hemoglobin Concent 30.3 g/dl Platelet Count 71 K/uL Neutrophils (%) (Auto) 95.3 % Lymphocytes (%) (Auto) 2.5 % Monocytes (%) (Auto) 1.8 % Eosinophils (%) (Auto) 0.1 % Basophils (%) (Auto) 0.0 % Neutrophils # (Auto) 18.02 K/uL Lymphocytes # (Auto) 0.48 K/uL Monocytes # (Auto) 0.34 K/uL Eosinophils # (Auto) 0.01 K/uL Basophils # (Auto) 0.00 K/uL RDW Standard Deviation 60.0 fL RDW Coefficient of Variation 24.8 % Immature Granulocyte % (Auto) 0.3 % Immature Granulocyte # (Auto) 0.06 K/uL Platelet Estimate DECREASED Anisocytosis PRESENT Microcytosis PRESENT Spherocytes 1+ Echinocytes 1+ Prothrombin Time 17.4 SECONDS Prothromb Time International Ratio 1.7 Sodium Level 138 mmol/L Potassium Level 4.4 mmol/L Chloride Level 106 mmol/L Carbon Dioxide Level 26 mmol/L Anion Gap 6.0 mmol/L Blood Urea Nitrogen 39 mg/dl Creatinine 1.65 mg/dl Est Creatinine Clear Calc Drug Dose 42.4 ml/min Estimated GFR () 35.3 Estimated GFR (Non- 30.5 BUN/Creatinine Ratio 23.6 Random Glucose 154 mg/dl Calcium Level 7.4 mg/dl Phosphorus Level 3.5 mg/dl Magnesium Level 2.3 mg/dl Test 04/09/18 06:03 04/09/18 11:51 Bedside Glucose 114 mg/dl 78 mg/dl Assessment and Plan 72yo female with: 1. septic shock 2nd to RLE cellulitis. Resolved. Pressors are off. Blood cultures negative. Cortisol level wnl. Cont IV antibiotic therapy. 2. acute kidney injury - likely sepsis-associated ATN - resolved; creatinine now at baseline. Supportive care measures;appreciate nephrology consultation. BMP in am. 3. morbid obesity with BMI 52.6. 4. chronic hypoxic/hypercarbic resp failure on home O2 - stable, continue NC O2 daytime and CPAP at HS. 5. COPD - not in exacerbation at this time. Remains on low-dose prednisone. Cont usual inhalers. 6. atrial flutter - improved rates with restarting of metoprolol TID. Resume coumadin 8mg daily; daily INR. 7. JONATHON - CPAP HS. 8. hypothyroidism - TSH 06/2017 wnl; cont synthroid. TSH wnl this am. 9. T2DM - controlled. 10. positive troponin - myocardial demand ischemia in setting of #1. ECHO w/o wall motion abnormalities. 11. CKD stage 3 - baseline Cr about 1.5/1.7. Creatinine today at baseline. 12. chronic diastolic CHF - compensated. 13. ?PAD RLE - consider vascular surgery consult due to arterial doppler findings. 14. right fibula fracture - orthopedics consulted for management. Nonoperative at this time. Continue walking boot. 15. h/o CAD - noted; no ischemic symptoms at this time. 16. leukocytosis - severe - normal WBC count on 03/28/18. Likely leukamoid reaction to septic shock. WBC count trending down nicely; repeat CBC am. 17. right hip pain - CT pelvis w/o fracture; likely contusion; cannot rule out trochanteric bursitis. transfer to tele today daughter updated by phone PT, OT Continued [facility] stay due to: ambulation difficulties, multiple IV medications needed Discharge planning: uncertain
[2018-04-10 06:24] LABS: INR 1.3 (0.9-1.1)
[2018-04-10 06:42] LABS: HEMATOCRIT 36.5 % (37-47); HEMOGLOBIN 10.9 g/dL (12.0-16.0); MEAN CELL VOLUME 70.9 fL (80-100); MEAN CORPUSCULAR HEMOGLOBIN 21.2 pg (25-34); MEAN CORPUSCULAR HGB CONC 29.9 g/dl (32-36); PLATELET COUNT 75 K/uL (130-400); RED CELL DISTRIBUTION WIDTH CV 24.7 % (11.5-14.5); RED CELL DISTRIBUTION WIDTH SD 61.1 fL (36.4-46.3); WHITE BLOOD COUNT 9.98 K/uL (4.8-10.8)
[2018-04-10 06:43] LABS: BASO % 0.1 %; BASO ABS # 0.01 K/uL (0-0.2); EOS % 0.5 %; EOS ABS # 0.05 K/uL (0-0.5); IG# 0.02 K/uL (0.00-0.02); LYMPH % 8.1 %; LYMPH ABS # 0.81 K/uL (1.2-3.4); MONO % 4.2 %; MONO ABS # 0.42 K/uL (0.11-0.59); NEUT % 86.9 %; NEUT ABS # 8.67 K/uL (1.4-6.5)
[2018-04-10 06:49] LABS: CALCIUM 8.1 mg/dl (8.5-10.1); CREATININE 1.35 mg/dl (0.60-1.20)
[2018-04-10] MEDS: IPRATROPIUM BROMIDE/ALBUTEROL respimat INH INH SCH ×4 (08:40→21:19)
[2018-04-10] MEDS: TIOTROPIUM BROMIDE 5 PUFF/90 MCG INH INH SCH (08:41)
[2018-04-10] MEDS: DOCUSATE SODIUM 100 MG CAP PO SCH (08:42)
[2018-04-10] MEDS: SERTRALINE HCL 100 MG TAB PO SCH (08:42)
[2018-04-10] MEDS: METOPROLOL TARTRATE 25 MG TAB PO SCH ×3 (08:43→21:20)
[2018-04-10] MEDS: MAGNESIUM OXIDE 400 MG TAB PO SCH (08:43)
[2018-04-10] MEDS: PANTOprazole SOD 40 MG TAB PO SCH (08:43)
[2018-04-10] MEDS: ASPIRIN 81 MG ECTAB PO SCH (08:44)
[2018-04-10] MEDS: ROSUVASTATIN CALCIUM 10 MG TAB PO SCH (08:44)
[2018-04-10] MEDS: INSULIN ASPART 100 UNITS/ML 3 ML PEN SC SCH ×4 (08:45→21:00)
[2018-04-10] MEDS: ANASTROZOLE 1 MG TAB PO SCH (08:48)
--- NOTE | 2018-04-10 08:53 | Pharmacy Progress Note ---
Pharmacy Glycemic Sign Off Nt Date of Service Apr 10, 2018. Assessment & Plan Item Value Date Time Bedside Glucose 75 mg/dl 04/10/18 0730 Bedside Glucose 206 mg/dl H 04/09/18 1951 Bedside Glucose 121 mg/dl H 04/09/18 1636 Bedside Glucose 78 mg/dl 04/09/18 1151 Bedside Glucose 114 mg/dl H 04/09/18 0603 Random Glucose 154 mg/dl H 04/09/18 0402 Bedside Glucose 122 mg/dl H 04/09/18 0012 Bedside Glucose 190 mg/dl H 04/08/18 2121 Bedside Glucose 104 mg/dl H 04/08/18 1559 ASSESSMENT: * Pharmacy was consulted by Dr Harkins on 04/06/18 for glycemic control and to write orders per [facility] inpatient glycemic control protocol. * No Major changes made by pharmacy to antidiabetic regimen. * Patient has been receiving/requiring 0-1 units of insulin per day for adequate glycemic control * BSGs ranging 75-207 mg/dl, one time of 207mg/dl, all other blood sugars in range * Regimen has only required minor adjustments over the past 48hrs to achieve this level of control * Do not anticipate further changes in patient status that would quickly deteriorate glycemic control (i.e. patient to be NPO for upcoming procedure, steroids tapering, starting tube feedings, etc). PLAN FOR INPATIENT GLYCEMIC CONTROL: No changes needed to current regimen. * Continue NovoLog per scale ACHS/Q6hrs while NPO * Goal range = 140- 180 mg/dl * CF = 30 mg/dl/unit * A1c added to discharge instructions to be communicated to PCP. * Pharmacy is signing off of glycemic consult and will no longer be making adjustments to inpatient regimen. Please feel free to re-consult if needed. Thank you. DISCHARGE RECOMMENDATIONS: * A1c 7.4 % on 04/07/18, no medications recommended at this time d/t age and renal function, and blood sugars well controlled with very minimal insulin needed as inpatient.
[2018-04-10] MEDS: PREGABALIN 150 MG CAP PO SCH (08:54)
[2018-04-10] MEDS ORDERED: HEPARIN SOD 5000 UNIT/0.5 ML CARP SQ ONE (09:00)
--- NOTE | 2018-04-10 10:05 | Nephrology Progress Note ---
Nephrology Progress Note Date of Service Apr 10, 2018. Chief Complaint Follow-up for ELMER, Hyperkalemia with h/o CKD Subjective Edle was seen and examined in his room. Overall she is feeling much better, denies shortness of breath or chest pain. Remain non-oliguric we, has decent urine output. Blood pressure relatively soft but asymptomatic. Renal function stable with acceptable electrolytes. LE edema worsened. Review of Systems A complete review of systems was performed. Pertinent positives are noted above. All other systems are negative. Vital Signs Last 8 Hrs Date Time Temp Pulse Resp B/P (MAP) Pulse Ox O2 Delivery O2 Flow Rate FiO2 04/10/18 08:00 96 Room Air 4.0 04/10/18 07:25 36.6 71 18 131/85 (100) 96 4.0 04/10/18 03:41 36.5 70 18 130/68 (88) 96 Room Air Last Recorded Weight Weight (Kilograms): 132.000 Physical Exam GENERAL: elderly female , AAA x 3, pleasant, healthy-appearing, not in any distress. NECK: Supple, no JVD. RESPIRATORY: Normal breathing efforts, no accessory muscle use, clear to auscultation bilaterally, no wheezes or rales. CARDIOVASCULAR: S1, S2 normal, rate rhythm regular. EXTREMITY: 1+ B/L lower extremity edema NEURO: speech fluent. PSYCHIATRY: Normal mood and judgment Family History Patient reports no known family medical history. Social History Smokeless Tobacco Use: No Alcohol Use: none Drug Use: none Marital Status: Housing Status: lives with family Occupation: retired Laboratory Results Past 24 Hours 04/10/18 05:30 Red Blood Count 5.15, Mean Corpuscular Volume 70.9, Mean Corpuscular Hemoglobin 21.2, Mean Corpuscular Hemoglobin Concent 29.9, Neutrophils (%) (Auto) 86.9, Lymphocytes (%) (Auto) 8.1, Monocytes (%) (Auto) 4.2, Eosinophils (%) (Auto) 0.5 , Basophils (%) (Auto) 0.1, Neutrophils # (Auto) 8.67, Lymphocytes # (Auto) 0.81 , Monocytes # (Auto) 0.42, Eosinophils # (Auto) 0.05, Basophils # (Auto) 0.01 04/10/18 05:30 Test 04/09/18 11:51 04/09/18 16:36 04/09/18 19:51 04/10/18 05:30 Bedside Glucose 78 mg/dl (70-90) 121 mg/dl (70-90) 206 mg/dl (70-90) White Blood Count 9.98 K/uL (4.8-10.8) Red Blood Count 5.15 M/uL (4.2-5.4) Hemoglobin 10.9 g/dL (12.0-16.0) Hematocrit 36.5 % (37-47) Mean Corpuscular Volume 70.9 fL (80-100) Mean Corpuscular Hemoglobin 21.2 pg (25-34) Mean Corpuscular Hemoglobin Concent 29.9 g/dl (32-36) Platelet Count 75 K/uL (130-400) Neutrophils (%) (Auto) 86.9 % Lymphocytes (%) (Auto) 8.1 % Monocytes (%) (Auto) 4.2 % Eosinophils (%) (Auto) 0.5 % Basophils (%) (Auto) 0.1 % Neutrophils # (Auto) 8.67 K/uL (1.4-6.5) Lymphocytes # (Auto) 0.81 K/uL (1.2-3.4) Monocytes # (Auto) 0.42 K/uL (0.11-0.59) Eosinophils # (Auto) 0.05 K/uL (0-0.5) Basophils # (Auto) 0.01 K/uL (0-0.2) RDW Standard Deviation 61.1 fL (36.4-46.3) RDW Coefficient of Variation 24.7 % (11.5-14.5) Immature Granulocyte % (Auto) 0.2 % Immature Granulocyte # (Auto) 0.02 K/uL (0.00-0.02) Platelet Estimate DECREASED Anisocytosis PRESENT Microcytosis PRESENT Spherocytes 1+ Echinocytes 1+ Prothrombin Time 13.9 SECONDS (9.0-12.0) Prothromb Time International Ratio 1.3 (0.9-1.1) Anion Gap 6.0 mmol/L (3-11) Est Creatinine Clear Calc Drug Dose 50.2 ml/min Estimated GFR () 45.0 Estimated GFR (Non- 38.9 BUN/Creatinine Ratio 24.7 (10-20) Calcium Level 8.1 mg/dl (8.5-10.1) Test 04/10/18 07:30 Bedside Glucose 75 mg/dl (70-90) Allergies Coded Allergies: Melatonin (Verified Allergy, Severe, RASH, 03/17/18) Penicillins (Verified Allergy, Unknown, UNLNOWN, 03/17/18) Medications Current Inpatient Medications Medications (Trade) Dose Ordered Sig/Isidoro Route Start Time Stop Time Status Last Admin Dose Admin Glucose (Glucose 40% Gel) 15-30 GRAMS 15 GRAMS... UD PRN PO 04/06/18 22:00 05/06/18 21:59 Glucose (Glucose Chew Tab) 4-8 Tablets 4 Tabl... UD PRN PO 04/06/18 22:00 05/06/18 21:59 Dextrose (Dextrose 50% 50ML Syringe) 25-50ML 25ML FOR ... UD PRN IV 04/06/18 22:00 05/06/18 21:59 Glucagon (Glucagon Inj) 1 mg UD PRN SQ 04/06/18 22:00 05/06/18 21:59 Carbohydrates (Carbohydrates For Hypoglycemia) 15-30 GRAMS 15 grams if BSG 54-69... UD PRN PO 04/06/18 22:00 05/06/18 21:59 Anastrozole (Arimidex Tab) 1 mg DAILY PO 04/07/18 09:00 05/07/18 08:59 04/10/18 08:48 1 MG Aspirin (Ecotrin Tab) 81 mg QAM PO 04/07/18 09:00 05/07/18 08:59 04/10/18 08:44 81 MG Docusate Sodium (coLACE CAP) 100 mg DAILY PO 04/07/18 09:00 05/07/18 08:59 04/10/18 08:42 100 MG Levothyroxine Sodium (Synthroid Tab) 112 mcg DAILYBB PO 04/07/18 06:00 05/07/18 05:59 04/10/18 05:00 112 MCG Magnesium Oxide (Mag-Ox Tab) 400 mg DAILY PO 04/07/18 09:00 05/07/18 08:59 04/10/18 08:43 400 MG Pantoprazole Sodium (Protonix Tab) 40 mg DAILY PO 04/07/18 09:00 9/19/18 08:59 04/10/18 08:43 40 MG Rosuvastatin Calcium (Crestor Tab) 10 mg DAILY PO 04/07/18 09:00 05/07/18 08:59 04/10/18 08:44 10 MG Sertraline HCl (Zoloft Tab) 150 mg DAILY PO 04/07/18 09:00 05/07/18 08:59 04/10/18 08:42 150 MG Tiotropium [place] (Spiriva Handihaler Inhaler) 1 puff QAM INH 04/07/18 09:00 05/07/18 08:59 04/10/18 08:41 1 PUFF Prednisone (PredniSONE TAB) 10 mg Q24H PO 04/10/18 13:30 04/12/18 13:31 Pregabalin (Lyrica Cap) 75 mg HS PO 04/07/18 21:00 05/07/18 20:59 04/09/18 20:45 75 MG Pregabalin (Lyrica Cap) 150 mg QAM PO 04/08/18 09:00 05/08/18 08:59 04/10/18 08:54 150 MG Insulin Aspart (novoLOG ASPART) SLIDING SCALE IF C... ACHS SC 04/07/18 16:00 05/07/18 15:59 04/08/18 22:18 1 UNITS Acetaminophen/ Hydrocodone Bitart ([place] 5/325 Tab) 1 tab Q6H PRN PO 04/07/18 19:45 04/21/18 19:44 04/10/18 08:56 1 TAB Heparin Sodium (Porcine) (Heparin 10 Unit/ ml 5 ml Flush) 5 ml PRN PRN FLUSH 04/07/18 23:00 05/07/18 22:59 Miscellaneous Information (Pharmacy Consult) 1 ea UD PRN N/A 04/08/18 09:24 05/08/18 09:23 Albuterol/ Ipratropium (Combivent Respimat Inh) 1 puffs QIDR INH 04/08/18 09:00 05/08/18 08:59 04/10/18 08:40 1 PUFFS Cefazolin Sodium 1000 mg/Syringe 7.5 ml @ 2.5 mls/min Q8H IV 04/08/18 13:00 04/17/18 23:59 04/10/18 05:00 2.5 MLS/MIN Metoprolol Tartrate (Lopressor Tab) 25 mg TID PO 04/08/18 14:00 05/08/18 13:59 04/10/18 08:43 25 MG Warfarin Sodium (Coumadin Tab) 8 mg DAILY@16 PO 04/09/18 16:00 05/09/18 15:59 04/09/18 15:40 8 MG Heparin Sodium (Porcine) (Heparin Sq 5000 Unit/0.5ml) 5,000 unit Q8H SQ 04/10/18 14:00 05/10/18 13:59 Impression 72 year female with baseline ambulatory dysfunction, uses wheelchair mostly for ambulation with history of recurrent fall admitted to the hospital with sepsis started on empiric antibiotic. Has stage IIIB chronic kidney disease with variable creatinine form 1.5-1.7, on admission found to have acute kidney injury creatinine was 2.6 which slightly improved and creatinine was 2.2 this morning. She has been non-oliguric. Electrolyte acceptable. Blood pressure remain relatively low, on IV fluid and pressor. Has hyperkalemia. ELMER mostly hemodynamically mediated with persistent hypotension and sepsis. Hyperkalemia with KCL supplement, Spironolactone and ELMER Recommendations -- Renal function at baseline. Electrolyte acceptable. Non-oliguric. Blood pressure soft but asymptomatic -- restart torsemide 10 mg /d -- avoid nephrotoxic medications -- encourage adequate p.o. intake -- monitor renal function daily while inpatient Will follow
[2018-04-10] MEDS: HEPARIN SOD 5000 UNIT/0.5 ML CARP SQ SCH ×2 (14:03→21:29)
[2018-04-10] MEDS ORDERED: NURSING VERBAL MED ORDER ONE (14:15)
[2018-04-10] MEDS: HYDROCODONE/ACETAMI 10/325 TAB PO PRN ×2 (14:16→21:20)
[2018-04-10] MEDS: WARFARIN SOD 4 MG TAB PO SCH (15:55)
[2018-04-10] MEDS: PREGABALIN 75 MG CAP PO SCH (21:20)
[2018-04-11 04:17] VITALS: BP 127/86; PULSE 64; TEMP 36.8; O2SAT 95
[2018-04-11] MEDS: CEFAZOLIN IV 1,000 MG in SYRINGE 0 ML IV SCH (05:18)
[2018-04-11] MEDS: HYDROCODONE/ACETAMI 10/325 TAB PO PRN (05:19)
--- NOTE | 2018-04-11 05:51 | Progress Note ---
Subjective Date of Service: Apr 10, 2018. Subjective Pt evaluation today including: conversation w/ patient, physical exam, chart review, lab review, review of inpatient medication list Pain: distal right lower extremity - she notes she takes norco 10's "for years " PO Intake: normal, eating well Voiding: no voiding problems tele stable overnight other than RLE pain she feels well good energy, appetite, ambulating had good bowel movement last 24 hours no dyspnea no new complaints Problem List Medical Problems: (1) Altered mental status Status: Acute (2) Anticoagulated on Coumadin Status: Acute (3) Cellulitis of right leg Status: Acute (4) Chronic kidney disease (CKD) Status: Acute (5) Left leg cellulitis Status: Acute (6) Respiratory failure Status: Acute (7) Respiratory failure, acute Status: Chronic (8) Septic shock Status: Acute (9) Shortness of breath Status: Acute (10) Syncope Status: Acute Review of Systems Constitutional: No fever Respiratory: + wheezing, No dyspnea at rest Cardiac: + edema, No chest pain, No orthopnea Abdomen: No pain Objective Vital Signs Date Time Temp Pulse Resp B/P (MAP) Pulse Ox O2 Delivery O2 Flow Rate FiO2 04/10/18 15:28 36.6 94 20 102/63 (76) 95 Room Air 04/10/18 13:25 97 106/69 (81) 04/10/18 11:34 37.0 84 18 91/58 (69) 94 04/10/18 08:00 96 Room Air 4.0 04/10/18 07:25 36.6 71 18 131/85 (100) 96 4.0 04/10/18 03:41 36.5 70 18 130/68 (88) 96 Room Air 04/09/18 23:59 Nasal Cannula 4.0 04/09/18 23:11 36.8 90 18 124/75 (91) 97 Nasal Cannula 4.0 04/09/18 20:02 36.8 96 18 108/76 (87) 95 Nasal Cannula 2.0 04/09/18 19:33 Nasal Cannula 4.0 Physical Exam General Appearance: no apparent distress, + obese ENT: pharynx normal Neck: no JVD Respiratory/Chest: no respiratory distress, no accessory muscle use, + wheezing (minimal) Cardiovascular: no gallop, no murmur, + irregularly irregular Abdomen: normal bowel sounds, non tender, soft, no organomegaly Extremities: + pedal edema (1+ b/l) Neurologic/Psychiatric: alert, normal mood/affect, oriented x 3 Skin: + pertinent finding (cellulitis, distal RLE - nearly resolved ) Laboratory Results Last 24 Hours Test 04/09/18 19:51 04/10/18 05:30 04/10/18 07:30 04/10/18 11:27 Bedside Glucose 206 mg/dl 75 mg/dl 88 mg/dl White Blood Count 9.98 K/uL Red Blood Count 5.15 M/uL Hemoglobin 10.9 g/dL Hematocrit 36.5 % Mean Corpuscular Volume 70.9 fL Mean Corpuscular Hemoglobin 21.2 pg Mean Corpuscular Hemoglobin Concent 29.9 g/dl Platelet Count 75 K/uL Neutrophils (%) (Auto) 86.9 % Lymphocytes (%) (Auto) 8.1 % Monocytes (%) (Auto) 4.2 % Eosinophils (%) (Auto) 0.5 % Basophils (%) (Auto) 0.1 % Neutrophils # (Auto) 8.67 K/uL Lymphocytes # (Auto) 0.81 K/uL Monocytes # (Auto) 0.42 K/uL Eosinophils # (Auto) 0.05 K/uL Basophils # (Auto) 0.01 K/uL RDW Standard Deviation 61.1 fL RDW Coefficient of Variation 24.7 % Immature Granulocyte % (Auto) 0.2 % Immature Granulocyte # (Auto) 0.02 K/uL Platelet Estimate DECREASED Anisocytosis PRESENT Microcytosis PRESENT Spherocytes 1+ Echinocytes 1+ Prothrombin Time 13.9 SECONDS Prothromb Time International Ratio 1.3 Sodium Level 142 mmol/L Potassium Level 5.0 mmol/L Chloride Level 107 mmol/L Carbon Dioxide Level 29 mmol/L Anion Gap 6.0 mmol/L Blood Urea Nitrogen 33 mg/dl Creatinine 1.35 mg/dl Est Creatinine Clear Calc Drug Dose 50.2 ml/min Estimated GFR () 45.0 Estimated GFR (Non- 38.9 BUN/Creatinine Ratio 24.7 Random Glucose 73 mg/dl Calcium Level 8.1 mg/dl Test 04/10/18 16:46 Bedside Glucose 114 mg/dl Assessment and Plan 72yo female with: 1. septic shock 2nd to RLE cellulitis. Resolved. Blood cultures negative. Cortisol level wnl. Cont IV antibiotic therapy. 2. acute kidney injury - likely sepsis-associated ATN - resolved; creatinine now at baseline. BMP in am. 3. morbid obesity with BMI 50 4. chronic hypoxic/hypercarbic resp failure on home O2 - stable, continue NC O2 daytime and CPAP at HS. 5. COPD - not in exacerbation at this time. Remains on low-dose prednisone. Cont usual inhalers. 6. atrial flutter - improved rates with restarting of metoprolol TID. Resumed coumadin 8mg daily; daily INR. While INR is subtherapeutic add SC lovenox daily for DVT proph. 7. JONATHON - CPAP HS. 8. hypothyroidism - TSH 06/2017 wnl; cont synthroid. TSH wnl this am. 9. T2DM - controlled. 10. positive troponin - myocardial demand ischemia in setting of #1. ECHO w/o wall motion abnormalities. 11. CKD stage 3 - baseline Cr about 1.5/1.7. 12. chronic diastolic CHF - compensated. 13. ?PAD RLE - consider vascular surgery consult due to arterial doppler findings. 14. right fibula fracture - orthopedics consulted for management. Nonoperative at this time. Continue walking boot. 15. h/o CAD - noted; no ischemic symptoms at this time. 16. leukocytosis - severe - normal WBC count on 03/28/18. Resolved. Was likely leukamoid reaction to septic shock. CBC am. 17. right hip pain - CT pelvis w/o fracture; likely contusion; cannot rule out trochanteric bursitis. No complaints of this pain today. increase norco to 10/325mg po q4h prn pain PT, OT dispo - SNF, referrals in progress Continued [facility] stay due to: ambulation difficulties, multiple IV medications needed Discharge planning: uncertain
[2018-04-11] MEDS: LEVOTHYROXINE 112 MCG TAB PO SCH (06:02)
[2018-04-11] MEDS: HEPARIN SOD 5000 UNIT/0.5 ML CARP SQ SCH ×3 (06:07→21:37)
[2018-04-11] MEDS: INSULIN ASPART 100 UNITS/ML 3 ML PEN SC SCH ×4 (06:30→20:51)
[2018-04-11 06:54] LABS: INR 1.8 (0.9-1.1)
[2018-04-11 06:57] LABS: HEMATOCRIT 34.8 % (37-47); HEMOGLOBIN 10.8 g/dL (12.0-16.0); RED CELL DISTRIBUTION WIDTH CV 24.6 % (11.5-14.5); RED CELL DISTRIBUTION WIDTH SD 61.3 fL (36.4-46.3); WHITE BLOOD COUNT 5.83 K/uL (4.8-10.8)
[2018-04-11 07:15] VITALS: BP 121/73; PULSE 68; TEMP 36.7; O2SAT 92
[2018-04-11 07:20] LABS: CALCIUM 8.1 mg/dl (8.5-10.1); CREATININE 1.45 mg/dl (0.60-1.20); POTASSIUM 4.7 mmol/L (3.5-5.1)
[2018-04-11] MEDS: IPRATROPIUM BROMIDE/ALBUTEROL respimat INH INH SCH ×4 (07:26→20:47)
[2018-04-11 07:28] LABS: PLATELET COUNT 71 K/uL (130-400)
[2018-04-11 07:29] LABS: EOS % 2.4 %; EOS ABS # 0.14 K/uL (0-0.5); IG# 0.01 K/uL (0.00-0.02); LYMPH % 16.5 %; LYMPH ABS # 0.96 K/uL (1.2-3.4); MONO % 6.9 %; NEUT ABS # 4.32 K/uL (1.4-6.5)
[2018-04-11] MEDS: TIOTROPIUM BROMIDE 5 PUFF/90 MCG INH INH SCH (08:04)
[2018-04-11] MEDS: ANASTROZOLE 1 MG TAB PO SCH (08:07)
[2018-04-11] MEDS: DOCUSATE SODIUM 100 MG CAP PO SCH (08:07)
[2018-04-11] MEDS: SERTRALINE HCL 100 MG TAB PO SCH (08:08)
[2018-04-11] MEDS: METOPROLOL TARTRATE 25 MG TAB PO SCH ×3 (08:09→20:46)
[2018-04-11] MEDS: TORSEMIDE 20 MG TAB PO SCH (08:09)
[2018-04-11] MEDS: PANTOprazole SOD 40 MG TAB PO SCH (08:09)
[2018-04-11] MEDS: ROSUVASTATIN CALCIUM 10 MG TAB PO SCH (08:10)
[2018-04-11] MEDS: ASPIRIN 81 MG ECTAB PO SCH (08:10)
[2018-04-11] MEDS: MAGNESIUM OXIDE 400 MG TAB PO SCH (08:10)
[2018-04-11] MEDS: PREGABALIN 150 MG CAP PO SCH (08:12)
[2018-04-11] MEDS: FERROUS SULFATE 325 MG TAB PO SCH ×2 (09:53→20:45)
[2018-04-11 11:17] VITALS: BP 111/72; PULSE 57; TEMP 36.7; O2SAT 93
--- NOTE | 2018-04-11 13:24 | Nephrology Progress Note ---
Nephrology Progress Note Date of Service Apr 11, 2018. Chief Complaint Follow-up for ELMER, Hyperkalemia with h/o CKD Subjective Edel was seen and examined in her room this morning. Overall she has been feeling much better denies shortness of breath or chest pain. No overnight events. Renal function has been stable, creatinine 1.5, electrolyte acceptable. Blood pressure acceptable. Remain non-oliguric. Review of Systems A complete review of systems was performed. Pertinent positives are noted above. All other systems are negative. Vital Signs Last 8 Hrs Date Time Temp Pulse Resp B/P (MAP) Pulse Ox O2 Delivery O2 Flow Rate FiO2 04/11/18 11:17 36.7 57 18 111/72 (85) 93 Nasal Cannula 4.0 04/11/18 07:32 Nasal Cannula 4.0 04/11/18 07:15 36.7 68 18 121/73 (89) 92 Nasal Cannula 4.0 Last Recorded Weight Weight (Kilograms): 133.100 Physical Exam GENERAL: elderly female , AAA x 3, pleasant, healthy-appearing, not in any distress. NECK: Supple, no JVD. RESPIRATORY: Normal breathing efforts, no accessory muscle use, clear to auscultation bilaterally, no wheezes or rales. CARDIOVASCULAR: S1, S2 normal, rate rhythm regular. EXTREMITY: 1+ B/L lower extremity edema NEURO: speech fluent. PSYCHIATRY: Normal mood and judgment Family History Patient reports no known family medical history. Social History Smokeless Tobacco Use: No Alcohol Use: none Drug Use: none Marital Status: Housing Status: lives with family Occupation: retired Laboratory Results Past 24 Hours 04/11/18 06:00 Red Blood Count 4.90, Mean Corpuscular Volume 71.0, Mean Corpuscular Hemoglobin 22.0, Mean Corpuscular Hemoglobin Concent 31.0, Neutrophils (%) (Auto) 74.0, Lymphocytes (%) (Auto) 16.5, Monocytes (%) (Auto) 6.9, Eosinophils (%) (Auto) 2.4, Basophils (%) (Auto) 0.0, Neutrophils # (Auto) 4.32, Lymphocytes # (Auto) 0.96, Monocytes # (Auto) 0.40, Eosinophils # (Auto) 0.14, Basophils # (Auto) 0.00 04/11/18 06:00 Test 04/10/18 16:46 8/23/18 20:21 04/11/18 06:00 04/11/18 07:36 Bedside Glucose 114 mg/dl (70-90) 149 mg/dl (70-90) 69 mg/dl (70-90) White Blood Count 5.83 K/uL (4.8-10.8) Red Blood Count 4.90 M/uL (4.2-5.4) Hemoglobin 10.8 g/dL (12.0-16.0) Hematocrit 34.8 % (37-47) Mean Corpuscular Volume 71.0 fL (80-100) Mean Corpuscular Hemoglobin 22.0 pg (25-34) Mean Corpuscular Hemoglobin Concent 31.0 g/dl (32-36) Platelet Count 71 K/uL (130-400) Neutrophils (%) (Auto) 74.0 % Lymphocytes (%) (Auto) 16.5 % Monocytes (%) (Auto) 6.9 % Eosinophils (%) (Auto) 2.4 % Basophils (%) (Auto) 0.0 % Neutrophils # (Auto) 4.32 K/uL (1.4-6.5) Lymphocytes # (Auto) 0.96 K/uL (1.2-3.4) Monocytes # (Auto) 0.40 K/uL (0.11-0.59) Eosinophils # (Auto) 0.14 K/uL (0-0.5) Basophils # (Auto) 0.00 K/uL (0-0.2) RDW Standard Deviation 61.3 fL (36.4-46.3) RDW Coefficient of Variation 24.6 % (11.5-14.5) Immature Granulocyte % (Auto) 0.2 % Immature Granulocyte # (Auto) 0.01 K/uL (0.00-0.02) Platelet Estimate DECREASED Large Platelets 1+ Hypochromasia PRESENT Poikilocytosis PRESENT Microcytosis PRESENT Spherocytes 1+ Schistocytes 1+ Prothrombin Time 18.5 SECONDS (9.0-12.0) Prothromb Time International Ratio 1.8 (0.9-1.1) Anion Gap 5.0 mmol/L (3-11) Est Creatinine Clear Calc Drug Dose 47.0 ml/min Estimated GFR () 41.3 Estimated GFR (Non- 35.6 BUN/Creatinine Ratio 25.2 (10-20) Calcium Level 8.1 mg/dl (8.5-10.1) Iron Level 36 mcg/dl (35-150) Transferrin 203 mg/dl (200-360) Transferrin % Saturation 13 % (15-50) Ferritin 81.6 ng/ml (8.0-388.0) Test 04/11/18 07:54 04/11/18 11:41 Bedside Glucose 88 mg/dl (70-90) 95 mg/dl (70-90) Allergies Coded Allergies: Melatonin (Verified Allergy, Severe, RASH, 03/17/18) Penicillins (Verified Allergy, Unknown, UNLNOWN, 03/17/18) Medications Current Inpatient Medications Medications (Trade) Dose Ordered Sig/Isidoro Route Start Time Stop Time Status Last Admin Dose Admin Glucose (Glucose 40% Gel) 15-30 GRAMS 15 GRAMS... UD PRN PO 04/06/18 22:00 05/06/18 21:59 Glucose (Glucose Chew Tab) 4-8 Tablets 4 Tabl... UD PRN PO 04/06/18 22:00 05/06/18 21:59 Dextrose (Dextrose 50% 50ML Syringe) 25-50ML 25ML FOR ... UD PRN IV 04/06/18 22:00 05/06/18 21:59 Glucagon (Glucagon Inj) 1 mg UD PRN SQ 04/06/18 22:00 05/06/18 21:59 Carbohydrates (Carbohydrates For Hypoglycemia) 15-30 GRAMS 15 grams if BSG 54-69... UD PRN PO 04/06/18 22:00 05/06/18 21:59 Anastrozole (Arimidex Tab) 1 mg DAILY PO 04/07/18 09:00 05/07/18 08:59 04/11/18 08:07 1 MG Aspirin (Ecotrin Tab) 81 mg QAM PO 04/07/18 09:00 05/07/18 08:59 04/11/18 08:10 81 MG Docusate Sodium (coLACE CAP) 100 mg DAILY PO 04/07/18 09:00 05/07/18 08:59 04/11/18 08:07 100 MG Levothyroxine Sodium (Synthroid Tab) 112 mcg DAILYBB PO 04/07/18 06:00 05/07/18 05:59 04/11/18 06:02 112 MCG Magnesium Oxide (Mag-Ox Tab) 400 mg DAILY PO 04/07/18 09:00 05/07/18 08:59 04/11/18 08:10 400 MG Pantoprazole Sodium (Protonix Tab) 40 mg DAILY PO 04/07/18 09:00 05/07/18 08:59 04/11/18 08:09 40 MG Rosuvastatin Calcium (Crestor Tab) 10 mg DAILY PO 04/07/18 09:00 05/07/18 08:59 04/11/18 08:10 10 MG Sertraline HCl (Zoloft Tab) 150 mg DAILY PO 04/07/18 09:00 05/07/18 08:59 04/11/18 08:08 150 MG Tiotropium [place] (Spiriva Handihaler Inhaler) 1 puff QAM INH 04/07/18 09:00 05/07/18 08:59 04/11/18 08:04 1 PUFF Prednisone (PredniSONE TAB) 10 mg Q24H PO 04/10/18 13:30 04/12/18 13:31 04/10/18 13:23 10 MG Pregabalin (Lyrica Cap) 75 mg HS PO 04/07/18 21:00 05/07/18 20:59 04/10/18 21:20 75 MG Pregabalin (Lyrica Cap) 150 mg QAM PO 04/08/18 09:00 05/08/18 08:59 04/11/18 08:12 150 MG Insulin Aspart (novoLOG ASPART) SLIDING SCALE IF C... ACHS SC 04/07/18 16:00 05/07/18 15:59 04/08/18 22:18 1 UNITS Miscellaneous Information (Pharmacy Consult) 1 ea UD PRN N/A 04/08/18 09:24 05/08/18 09:23 Albuterol/ Ipratropium (Combivent Respimat Inh) 1 puffs QIDR INH 04/08/18 09:00 05/08/18 08:59 04/11/18 12:08 1 PUFFS Metoprolol Tartrate (Lopressor Tab) 25 mg TID PO 04/08/18 14:00 05/08/18 13:59 04/11/18 08:09 25 MG Warfarin Sodium (Coumadin Tab) 8 mg DAILY@16 PO 04/09/18 16:00 05/09/18 15:59 04/10/18 15:55 8 MG Heparin Sodium (Porcine) (Heparin Sq 5000 Unit/0.5ml) 5,000 unit Q8H SQ 04/10/18 14:00 05/10/18 13:59 04/11/18 06:07 5,000 UNIT Torsemide (Demadex Tab) 10 mg QAM PO 04/11/18 09:00 05/11/18 08:59 04/11/18 08:09 10 MG Acetaminophen/ Hydrocodone Bitart ([place] 10/325 Tab) 1 tab Q4H PRN PO 04/10/18 12:30 04/24/18 12:29 04/11/18 05:19 1 TAB Cephalexin Monohydrate (Keflex Cap) 500 mg BID PO 04/11/18 21:00 04/17/18 21:00 Ferrous Sulfate (Feosol Tab) 325 mg BID PO 04/11/18 09:00 05/11/18 08:59 04/11/18 09:53 325 MG Impression 72 year female with baseline ambulatory dysfunction, uses wheelchair mostly for ambulation with history of recurrent fall admitted to the hospital with sepsis started on empiric antibiotic. Has stage IIIB chronic kidney disease with variable creatinine form 1.5-1.7, on admission found to have acute kidney injury creatinine was 2.6 which slightly improved and creatinine was 2.2 this morning. She has been non-oliguric. Electrolyte acceptable. Blood pressure remain relatively low, on IV fluid and pressor. Has hyperkalemia. ELMER mostly hemodynamically mediated with persistent hypotension and sepsis. Hyperkalemia with KCL supplement, Spironolactone and ELMER Recommendations -- Renal function at baseline. Electrolyte acceptable. Non-oliguric. Blood pressure soft but asymptomatic -- continue on torsemide 10 mg /d -- avoid nephrotoxic medications -- encourage adequate p.o. intake -- monitor renal function daily while inpatient Will sign off for now can be followed with Dr. Dawson as an outpatient as previously scheduled, will be available to the weekend if any further assistance needed.
[2018-04-11] MEDS ORDERED: COLCHICINE 0.6 MG TAB PO ONE (14:30)
--- NOTE | 2018-04-11 14:53 | DIAGNOSTIC IMAGING REPORT ---
R FOOT MIN 3 VIEWS ROUTINE CLINICAL HISTORY: Severe foot pain COMPARISON: 03/17/2018 DISCUSSION: The bones are osteopenic. There are postsurgical changes present within the hindfoot. There is sclerosis and flattening of the talus. Arthritic changes are present within the tibiotalar joint and subtalar joint. There are no acute fractures. Degenerative changes are present the level the first metatarsal phalangeal joint. There is moderate dorsal soft tissue swelling. IMPRESSION: 1. Postsurgical and arthritic changes within the hindfoot 2. Dorsal soft tissue swelling 3. No acute fractures Electronically signed by: Wan Gonzales M.D. 04/11/2018 2:52 PM Dictated Date/Time: 04/11/2018 2:49 PM
[2018-04-11] MEDS: WARFARIN SOD 4 MG TAB PO SCH (14:59)
[2018-04-11 15:11] VITALS: BP 114/76; PULSE 82; TEMP 36.9; O2SAT 99
[2018-04-11] MEDS ORDERED: COLCHICINE 0.6 MG TAB PO SCH (15:30)
[2018-04-11 18:35] VITALS: BP 155/79; PULSE 82; TEMP 36.7; O2SAT 93
--- NOTE | 2018-04-11 20:31 | Progress Note ---
Subjective Date of Service: Apr 11, 2018. Subjective Pt evaluation today including: conversation w/ patient, conversation w/ family (daughter at bedside), physical exam, chart review, lab review, review of studies (xrays of right foot), conversation w/ admissions consultant (orthopedics - Dr. Damon), review of inpatient medication list Pain: right foot - unsure when it started; hurts just to touch it PO Intake: very good, 100% of meals Voiding: no voiding problems tele with rate-controlled a. flutter her main complaint is that of right foot pain on the top of foot started overnight? hurts to touch it hurts to ambulate on it better w/ just rest I noted during my visit today she was mildly sleepy but awake enough to answer all questions daughter also noted this starting late yesterday evening breathing is "very good" Problem List Medical Problems: (1) Altered mental status Status: Acute (2) Anticoagulated on Coumadin Status: Acute (3) Cellulitis of right leg Status: Acute (4) Chronic kidney disease (CKD) Status: Acute (5) Left leg cellulitis Status: Acute (6) Respiratory failure Status: Acute (7) Respiratory failure, acute Status: Chronic (8) Septic shock Status: Acute (9) Shortness of breath Status: Acute (10) Syncope Status: Acute Review of Systems Constitutional: No fever, No chills Respiratory: No cough, No shortness of breath Cardiac: No chest pain Abdomen: No pain, No diarrhea Objective Vital Signs Date Time Temp Pulse Resp B/P (MAP) Pulse Ox O2 Delivery O2 Flow Rate FiO2 04/11/18 18:35 36.7 82 20 155/79 (104) 93 Nasal Cannula 4.0 04/11/18 16:10 36.9 82 18 99 Nasal Cannula 04/11/18 15:11 36.9 82 18 114/76 (89) 99 Nasal Cannula 4.0 04/11/18 11:17 36.7 57 18 111/72 (85) 93 Nasal Cannula 4.0 04/11/18 07:32 Nasal Cannula 4.0 04/11/18 07:15 36.7 68 18 121/73 (89) 92 Nasal Cannula 4.0 04/11/18 04:17 36.8 64 18 127/86 (100) 95 4.0 04/11/18 00:00 Nasal Cannula 4.0 04/10/18 23:13 36.8 95 18 115/75 (88) 91 4.0 04/10/18 21:18 92 131/84 (100) Physical Exam General Appearance: no apparent distress, + obese, + pertinent finding (mildly sleepy ) ENT: pharynx normal Neck: no JVD Respiratory/Chest: no respiratory distress, no accessory muscle use, + wheezing (mild end-exp) Cardiovascular: no gallop, no murmur, + irregularly irregular Abdomen: normal bowel sounds, non tender, soft, no organomegaly, + hernia ( near umbilicus - reducible ) Extremities: + pedal edema, + swelling, + pertinent finding (cap refill both feet <2 seconds; pulses both feet 1+) Neurologic/Psychiatric: alert, oriented x 3, + pertinent finding (but mildly sleepy) Skin: + pertinent finding (right foot - midfoot with mild erythema and mild warmth; tender to touch with minimal pressure; right distal leg/luque - no erythema, no residual cellulitis ) Comments: musculoskeletal - right foot - midfoot with erythema and synovitis; tender to touch with minimal pressure; right ankle normal, no effusion Laboratory Results Last 24 Hours Test 04/10/18 20:21 04/11/18 06:00 04/11/18 07:36 04/11/18 07:54 Bedside Glucose 149 mg/dl 69 mg/dl 88 mg/dl White Blood Count 5.83 K/uL Red Blood Count 4.90 M/uL Hemoglobin 10.8 g/dL Hematocrit 34.8 % Mean Corpuscular Volume 71.0 fL Mean Corpuscular Hemoglobin 22.0 pg Mean Corpuscular Hemoglobin Concent 31.0 g/dl Platelet Count 71 K/uL Neutrophils (%) (Auto) 74.0 % Lymphocytes (%) (Auto) 16.5 % Monocytes (%) (Auto) 6.9 % Eosinophils (%) (Auto) 2.4 % Basophils (%) (Auto) 0.0 % Neutrophils # (Auto) 4.32 K/uL Lymphocytes # (Auto) 0.96 K/uL Monocytes # (Auto) 0.40 K/uL Eosinophils # (Auto) 0.14 K/uL Basophils # (Auto) 0.00 K/uL RDW Standard Deviation 61.3 fL RDW Coefficient of Variation 24.6 % Immature Granulocyte % (Auto) 0.2 % Immature Granulocyte # (Auto) 0.01 K/uL Platelet Estimate DECREASED Large Platelets 1+ Hypochromasia PRESENT Poikilocytosis PRESENT Microcytosis PRESENT Spherocytes 1+ Schistocytes 1+ Erythrocyte Sedimentation Rate 78 mm/hr Prothrombin Time 18.5 SECONDS Prothromb Time International Ratio 1.8 Sodium Level 141 mmol/L Potassium Level 4.7 mmol/L Chloride Level 106 mmol/L Carbon Dioxide Level 30 mmol/L Anion Gap 5.0 mmol/L Blood Urea Nitrogen 37 mg/dl Creatinine 1.45 mg/dl Est Creatinine Clear Calc Drug Dose 47.0 ml/min Estimated GFR () 41.3 Estimated GFR (Non- 35.6 BUN/Creatinine Ratio 25.2 Random Glucose 66 mg/dl Uric Acid 5.8 mg/dl Calcium Level 8.1 mg/dl Iron Level 36 mcg/dl Transferrin 203 mg/dl Transferrin % Saturation 13 % Ferritin 81.6 ng/ml Test 04/11/18 11:41 04/11/18 16:08 04/11/18 16:56 Bedside Glucose 95 mg/dl 95 mg/dl Venous Blood pH 7.30 Venous Blood Partial Pressure CO2 69 mmHg Venous Blood Partial Pressure O2 20 mmHg Venous Blood HCO3 33 mmol/L Venous Blood Oxygen Saturation < 60.0 % Venous Blood Base Excess 5.1 mEq/L Assessment and Plan 72yo female with: 1. septic shock 2nd to RLE cellulitis. Resolved. Blood cultures negative. Urine cx negative. No pneumonia on imaging. Cortisol level wnl. Transition IV ancef to PO keflex today; today is day # 6 of abx therapy. Plan 10 days of Rx. No other source of infection found. Prior imaging of abdomen with gallstones but she has had NO abd pain, eating well, and previous LFTs wnl. Will repeat LFTs in am for stability. 2. acute kidney injury - likely sepsis-associated ATN - resolved; creatinine now at baseline. BMP in am. 3. morbid obesity with BMI 50 4. chronic hypoxic/hypercarbic resp failure with superimposed acute hypercarbic resp failure today - VBG was obtained due to sleepiness in the setting of missing her BIPAP last pm and taking narcotics yesterday and this AM. VBG with worsening hypercarbia and pH. STOP narcotics. 1 hour following her dinner tonight START her home BIPAP and use all night. She is on home O2 and O2 sats have been stable. 5. COPD - not in exacerbation at this time. Remains on low-dose prednisone. Patient has been on prednisone several times recently for recurrent flares but does NOT take prednisone chronically. Cont usual inhalers. 6. atrial flutter - good rate control with metoprolol TID. Resumed coumadin 8mg daily; daily INR. While INR is subtherapeutic continue SC lovenox daily for DVT proph. Observe platelets carefully on the above. 7. JONATHON - BIPAP HS. 8. hypothyroidism - TSH 06/2017 wnl; cont synthroid. TSH wnl this am. 9. T2DM - controlled without any medications. In fact has had some mild, asymptomatic hypoglycemia. 10. positive troponin - myocardial demand ischemia in setting of #1. ECHO w/o wall motion abnormalities. 11. CKD stage 3 - baseline Cr about 1.5/1.7. 12. chronic diastolic CHF - compensated. 13. ?PAD RLE - consider vascular surgery consult due to arterial doppler findings. But has intact pulses and good cap refill. 14. right proximal fibula fracture - orthopedics consulted for management. Nonoperative at this time. Continue walking boot. Dr. Damon to see on Saturday. 15. h/o CAD - noted; no ischemic symptoms at this time. 16. leukocytosis - severe at time of admission - resolved. leukamoid reaction to septic shock? CBC am once again. 17. right hip pain - CT pelvis w/o fracture; likely contusion. 18. right foot pain - I believe this is midfoot gouty arthritis. Has known gout and takes uroloric. x-rays right foot without fracture. Sed rate elevated. Colchicine x 2 doses given today and I also gave extra prednisone. Will increase basal prednisone to 30mg in the am and would do a slow taper over 5-7 days for this issue. 19. thrombocytopenia - acute/chronic - chronically her platelets are low- normal in the 150-160 range. Today they have plateaued about 70. I suspect this is due to recent sepsis. With that said she has schistocytes on smear today. No evidence of DIC or TTP clinically however. Repeat the cbc with diff in am. Very low threshold for additional work-up for this. 20. microcytic anemia - iron studies somewhat c/w iron deficiency. The microcytosis has been worsening in the last year. Repeat cbc in am, and needs f/u after discharge. 21. pain - yesterday patient told me she took norco 10's chronically. Daughter at bedside today says she has taken norco in the past but the bottle she has at home is from 1 year ago and has most of the pills in it. The patient misunderstood our conversation and mistakenly thought we were talking about her lyrica. The norco clearly caused her to be sleepy yesterday/today. STOP narcotics given he propensity for hypercarbia. PT, OT dispo - [facility] - maybe this weekend depending on labs, mental status, etc total time today 70 minutes - several visits, reviewing imaging, talking with daughter, talking with ortho, etc Continued [facility] stay due to: inadequate oral pain control, ambulation difficulties, home environment unsafe for pt Discharge planning: custodial facility
[2018-04-11] MEDS: PREGABALIN 75 MG CAP PO SCH (20:45)
[2018-04-11] MEDS: CEPHALEXIN MONOHYDRATE 500 MG CAP PO SCH (20:46)
[2018-04-11 22:21] VITALS: BP 132/76; PULSE 94; TEMP 36.8; O2SAT 93
[2018-04-12 04:54] VITALS: BP 130/76; PULSE 63; TEMP 36.7; O2SAT 94
[2018-04-12] MEDS: LEVOTHYROXINE 112 MCG TAB PO SCH (05:27)
[2018-04-12] MEDS: HEPARIN SOD 5000 UNIT/0.5 ML CARP SQ SCH ×2 (05:29→12:41)
[2018-04-12 06:29] LABS: MEAN CORPUSCULAR HGB CONC 30.6 g/dl (32-36)
[2018-04-12] MEDS: INSULIN ASPART 100 UNITS/ML 3 ML PEN SC SCH ×2 (06:30→11:00)
[2018-04-12 06:43] LABS: HEMATOCRIT 36.6 % (37-47); HEMOGLOBIN 11.2 g/dL (12.0-16.0); MEAN CELL VOLUME 69.8 fL (80-100); MEAN CORPUSCULAR HEMOGLOBIN 21.4 pg (25-34); RED CELL DISTRIBUTION WIDTH CV 24.1 % (11.5-14.5); WHITE BLOOD COUNT 4.74 K/uL (4.8-10.8)
[2018-04-12 06:57] LABS: EOS % 0.4 %; EOS ABS # 0.02 K/uL (0-0.5); LYMPH % 14.6 %; LYMPH ABS # 0.69 K/uL (1.2-3.4); MONO % 7.8 %; MONO ABS # 0.37 K/uL (0.11-0.59); NEUT % 77.2 %; NEUT ABS # 3.66 K/uL (1.4-6.5); PLATELET COUNT 78 K/uL (130-400)
[2018-04-12 07:00] LABS: ALBUMIN 2.2 gm/dl (3.4-5.0); CALCIUM 8.5 mg/dl (8.5-10.1); CREATININE 1.27 mg/dl (0.60-1.20); POTASSIUM 4.7 mmol/L (3.5-5.1)
[2018-04-12] MEDS: CEPHALEXIN MONOHYDRATE 500 MG CAP PO SCH (07:28)
[2018-04-12] MEDS: IPRATROPIUM BROMIDE/ALBUTEROL respimat INH INH SCH ×2 (07:28→12:12)
[2018-04-12] MEDS: ROSUVASTATIN CALCIUM 10 MG TAB PO SCH (07:30)
[2018-04-12] MEDS: SERTRALINE HCL 100 MG TAB PO SCH (07:30)
[2018-04-12] MEDS: DOCUSATE SODIUM 100 MG CAP PO SCH (07:30)
[2018-04-12] MEDS: MAGNESIUM OXIDE 400 MG TAB PO SCH (07:31)
[2018-04-12] MEDS: PANTOprazole SOD 40 MG TAB PO SCH (07:31)
[2018-04-12] MEDS: METOPROLOL TARTRATE 25 MG TAB PO SCH ×2 (07:31→12:42)
[2018-04-12] MEDS: FERROUS SULFATE 325 MG TAB PO SCH (07:32)
[2018-04-12] MEDS: TORSEMIDE 20 MG TAB PO SCH (07:33)
[2018-04-12] MEDS: ASPIRIN 81 MG ECTAB PO SCH (07:33)
[2018-04-12] MEDS: ANASTROZOLE 1 MG TAB PO SCH (07:35)
[2018-04-12] MEDS: PREGABALIN 150 MG CAP PO SCH (07:36)
[2018-04-12 07:40] VITALS: BP 151/89; PULSE 77; TEMP 36.8; O2SAT 91
[2018-04-12] MEDS: TIOTROPIUM BROMIDE 5 PUFF/90 MCG INH INH SCH (09:09)
--- NOTE | 2018-04-12 09:26 | PROGRESS NOTE ---
DATE: 04/12/2018 SUBJECTIVE: A 72-year-old female admitted with apparent sepsis thought to be related to some cellulitis after a fall just almost a week ago. She was seen by Dr. Best earlier and diagnosed with a proximal fibula fracture. We were re-consulted just to be reevaluated as she is having quite a bit of mid foot pain. There was also some concern about the level of the boot that she has on for her fibula fracture. She has recovered nicely and her white blood cell count is improved. She does have multiple medical comorbidities including diabetes. She also has a history of a right foot trauma treated at [facility] in with a talar neck fracture that has never healed with avascular necrosis. She describes mostly mid foot and forefoot pain. She does have a history of gout. OBJECTIVE: VITAL SIGNS: Temperature is 36.8. Vital signs stable. GENERAL: Reveals a pleasant elderly female. She looks very poorly conditioned, sitting up in her chair eating breakfast. EXTREMITIES: Examination of the right foot and leg reveals some mild diffuse edema in both legs. She does have some redness up in her mid and forefoot area. She has no proximal fibular tenderness at all and no knee pain. She can flex or extend her knee appropriately. She is diffusely tender around her mid foot area even just to palpate. She is otherwise neurologically intact. X-RAYS: I did review her x-rays of her tib-fib as well as her foot. It shows a proximal fibula fracture. She does have a history of a foot surgery with a screw in the talus with apparent nonunion and avascular necrosis and some pins in the medial malleolus. She got a chronic fibula fracture, which is never healed. This is not new. ASSESSMENT: A 72-year-old female with multiple medical comorbidities and very poorly conditioned, admitted with infection/cellulitis and possible sepsis, which has improved markedly. Clinically, she looks stable. Her white cell count has returned to normal. She is now having forefoot pain, which could be related just to residual cellulitis versus gout. This proximal fibular fracture is asymptomatic and really does not require any treatment. Walking boots are reasonable, but she could go without anything. I do think based on her forefoot pain using this low tide walking boot is appropriate to wear for the next 4 weeks. It may benefit her to undergo a brief course of steroids depending on her medical situation as it may really help her forefoot problem if it is truly gout. She is on Coumadin, cannot take NSAIDs. PLAN: At this point, I would recommend she wear this low tide walking boot for 4 weeks. Does not need to wear it while sleeping, just weightbearing. If possible, it would be beneficial may be to try a Medrol Dosepak or a short burst of steroids for her forefoot pain. She can weightbear as tolerated. She should follow back in our clinic in about a month. Any orthopedic questions can be directed to me at [phone].
[2018-04-12 11:11] LABS: INR 3.2 (0.9-1.1)
[2018-04-12 11:17] VITALS: BP 118/78; PULSE 82; TEMP 37; O2SAT 97
[2018-04-12] MEDS ORDERED: WARF4TAB8 PO (12:57)
[2018-04-12] MEDS ORDERED: KFL500 PO (12:57)
[2018-04-12] MEDS ORDERED: FRRS300 PO (12:57)
[2018-04-12] MEDS ORDERED: IPRA1AER2 INH (12:57)
[2018-04-12] MEDS ORDERED: PREG1CAP70 PO (12:57)
[2018-04-12] MEDS ORDERED: NVLGIPEN SC (12:57)
[2018-04-12] MEDS ORDERED: PRED10TA PO (12:57)
--- NOTE | 2018-04-12 13:15 | Discharge Instructions ---
Discharge Instructions Date of Service Apr 12, 2018. Admission Reason for Admission: Sepsis Discharge Discharge Diagnosis / Problem: Septic shock, right lower extremity cellulitis Discharge Goals Goal(s): Improve disease control, Diagnostic testing, Therapeutic intervention Activity Recommendations Activity Level: Assistance Required Therapies: Physical Therapy, Occupational Therapy Weightbearing Status: Right weightbearing (as tolerated with walking boot in place 4 weeks, may remove boot while sleeping) Shower/Bathe: no limitations . Additional Information Patient informed of condition: Yes Advance Directives: No DNR: Yes Level of Care: Skilled Communicable Disease: No Prognosis: Stable Oxygen at (LPM): 3-4 L nasal cannula continuously, CPAP nightly Greco Catheter: No Instructions / Follow-Up Instructions / Follow-Up This patient is a 72yo female with history of COPD with chronic hypoxic respiratory failure with recent admission for ventilator dependent hypercarbic respiratory failure on home O2, CAD, CKD III, Depression, DMII, HLP, Hypothyroidism, JONATHON on CPAP, and frequent falls, who presented with pain in the RLE as well as shortness of breath. Patient was recently admitted from March 17 - March 28 after a fall onto her knees at home. During that hospital stay she developed hypercarbic respiratory failure after receiving pain medication requiring brief intubation and ICU stay. On this admission, the patient fell on her knees upon arrival to the ER and was found to be tachycardic, hypotensive with hypoxia on room air. She was admitted to the ICU and treated for septic shock with vasopressors. 1. septic shock 2nd to RLE cellulitis. Resolved. Blood cultures negative. Urine cx negative. No pneumonia on imaging. Cortisol level wnl. Transitioned IV ancef to PO keflex 500 mg 3 times daily; today is day # 7/10 of abx therapy No other source of infection found. Prior imaging of abdomen with gallstones but she has had NO abd pain, eating well, and previous LFTs wnl. 2. acute kidney injury/hyperkalemia likely sepsis-associated ATN - resolved; creatinine now at baseline. Potassium now normalized to 4.7. She was on a potassium supplement 20 mEq p.o. twice daily as well as her Aldactone. Both of those were held on admission, and the potassium will not be restarted. Follow BMP in 1 day -Okay to restart Aldactone, continue torsemide -Probably discontinue potassium chloride supplement 3. morbid obesity with BMI 52 -Needs weight loss counseling 4. Acute on chronic hypoxic/hypercarbic respiratory failure - VBG was obtained due to sleepiness in the setting of missing her CPAP 1 night and taking narcotics for pain. VBG with worsening hypercarbia and pH which is now resolved after using CPAP and avoiding narcotics. STOP narcotics. She is on home O2 and O2 sats have been stable. 5. COPD - not in exacerbation at this time. Patient has been on prednisone several times recently for recurrent flares but does NOT take prednisone chronically. Cont usual inhalers. 6. atrial flutter - good rate control with metoprolol TID. INR was elevated upon admission Coumadin was held. Resumed coumadin 8mg daily but then INR jumped up rapidly to 3.2 on the day of discharge. Hold Coumadin on 04/12 and check PT/INR in 1 day on 04/13 -Coumadin 4 mg alternating with 8 mg as per previous home dosing regimen-may need to lower this once Coumadin is restarted especially while on antibiotics Observe platelets carefully on the above. 7. JONATHON -continue CPAP HS. 8. hypothyroidism - TSH 06/2017 wnl; cont synthroid. TSH wnl this admission 9. T2DM - controlled without any medications. In fact has had some mild, asymptomatic hypoglycemia. 10. positive troponin - myocardial demand ischemia in setting of #1. ECHO w/o wall motion abnormalities. 11. CKD stage 3 - baseline Cr about 1.5/1.7. 12. chronic diastolic CHF - compensated. 13. ?PAD RLE - consider vascular surgery consult due to arterial doppler findings. But has intact pulses and good cap refill. 14. 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 Nonoperative at this time. Continue walking boot 4 weeks with weightbearing as tolerated, can remove the boot while sleeping. -Follow-up with orthopedics, Dr. Hoang Damon, in 1 month 15. h/o CAD - noted; no ischemic symptoms at this time. 16. leukocytosis - severe at time of admission up to 50 K, now is resolved. Her leukemoid reaction was likely secondary to septic shock 17. right hip pain - CT pelvis w/o fracture; likely contusion. 18. right foot pain-with exquisite tenderness and erythema on the dorsal forefoot. I believe this is midfoot gouty arthritis. Has known gout and takes Uloric which was somehow not restarted on this admission and possibly is why she is having a flare. x-rays right foot without fracture. Sed rate elevated. Colchicine x 2 doses given 1 day and started prednisone burst with taper over the next week 19. thrombocytopenia - acute/chronic - chronically her platelets are low- normal in the 150-160 range. Today they are starting to improve to 78K I suspect this is due to recent sepsis. With that said she has schistocytes on smear No evidence of DIC or TTP clinically however. Follow CBC in 1 day 20. microcytic anemia - iron studies somewhat c/w iron deficiency but not as significant as I would expect with an MCV of 69. The microcytosis has been worsening in the last year. Needs a Hemoccult stool as an outpatient and possible GI workup. No obvious blood loss while here Follow CBC in 1 day 21. Chronic pain-continues on Lyrica Opioids given hypercapnic respiratory failure on 2 different admissions this year Stable for discharge to rehab today Current Hospital Diet Patient's current hospital diet: Diabetes Type 2 Diet, Renal Diet, AHA Diet ( Heart Healthy) Discharge Diet Recommended Diet: AHA Diet (Heart Healthy), Diabetes Type 2 Diet Procedures Procedures Performed: Lower extremity Doppler arterial ultrasound Lower extremity venous Doppler ultrasound Tibia/fibula x-ray-right Pelvis CT Hip, pelvis, knee, ankle, foot x-rays Chest x-ray Pending Studies Studies pending at discharge: no Physician Orders On Transfer Special Precautions: Fall risk IV Therapy: None Vital Signs: Routine Weigh: Routine Additional Orders: Check PT/INR, CBC, BMP in 1 day Laboratory Results Last 24 Hours Test 04/11/18 16:08 04/11/18 16:56 04/11/18 19:53 04/12/18 05:46 Bedside Glucose 95 mg/dl 171 mg/dl Venous Blood pH 7.30 Venous Blood Partial Pressure CO2 69 mmHg Venous Blood Partial Pressure O2 20 mmHg Venous Blood HCO3 33 mmol/L Venous Blood Oxygen Saturation < 60.0 % Venous Blood Base Excess 5.1 mEq/L White Blood Count 4.74 K/uL Red Blood Count 5.24 M/uL Hemoglobin 11.2 g/dL Hematocrit 36.6 % Mean Corpuscular Volume 69.8 fL Mean Corpuscular Hemoglobin 21.4 pg Mean Corpuscular Hemoglobin Concent 30.6 g/dl Platelet Count 78 K/uL Neutrophils (%) (Auto) 77.2 % Lymphocytes (%) (Auto) 14.6 % Monocytes (%) (Auto) 7.8 % Eosinophils (%) (Auto) 0.4 % Basophils (%) (Auto) 0.0 % Neutrophils # (Auto) 3.66 K/uL Lymphocytes # (Auto) 0.69 K/uL Monocytes # (Auto) 0.37 K/uL Eosinophils # (Auto) 0.02 K/uL Basophils # (Auto) 0.00 K/uL RDW Standard Deviation 59.0 fL RDW Coefficient of Variation 24.1 % Immature Granulocyte % (Auto) 0.0 % Immature Granulocyte # (Auto) 0.00 K/uL Hypersegmented Polys 1+ Platelet Estimate DECREASED Hypochromasia PRESENT Spherocytes OCCASIONAL Schistocytes 1+ Sodium Level 141 mmol/L Potassium Level 4.7 mmol/L Chloride Level 104 mmol/L Carbon Dioxide Level 30 mmol/L Anion Gap 7.0 mmol/L Blood Urea Nitrogen 40 mg/dl Creatinine 1.27 mg/dl Est Creatinine Clear Calc Drug Dose 54.6 ml/min Estimated GFR () 48.5 Estimated GFR (Non- 41.8 BUN/Creatinine Ratio 31.1 Random Glucose 88 mg/dl Calcium Level 8.5 mg/dl Total Bilirubin 0.3 mg/dl Direct Bilirubin 0.1 mg/dl Aspartate Amino Transf (AST/SGOT) 24 U/L Alanine Aminotransferase (ALT/SGPT) 28 U/L Alkaline Phosphatase 69 U/L Total Protein 6.0 gm/dl Albumin 2.2 gm/dl Test 04/12/18 07:26 04/12/18 10:45 04/12/18 11:32 Bedside Glucose 89 mg/dl 122 mg/dl Prothrombin Time 32.9 SECONDS Prothromb Time International Ratio 3.2 Venous Blood pH 7.43 Venous Blood Partial Pressure CO2 49 mmHg Venous Blood Partial Pressure O2 56 mmHg Venous Blood HCO3 32 mmol/L Venous Blood Oxygen Saturation 86.8 % Venous Blood Base Excess 6.2 mEq/L Hemoglobin A1c Test 04/07/18 04:44 Range/Units Estimated Average Glucose 166 mg/dl Hemoglobin A1c 7.4 H 4.5-5.6 % Medical Emergencies . Who to Call and When: Medical Emergencies: If at any time you feel your situation is an emergency, please call 911 immediately. . Non-Emergent Contact Non-Emergency issues call your: Primary Care Provider Call Non-Emergent contact if: you have a fever, temperature is above 101, your pain is not controlled, your pain is worsening, your pain is unusual for you, your pain is concerning you, wound has increased drainage, wound has increased redness, wound has increased pain, you have any medication questions . . "Provider Documentation" section prepared by Bhargavi Del Rosario. . Core Measure Problem Core Measures: None
--- NOTE | 2018-04-12 13:35 | Discharge Summary ---
Discharge Summary Date of Service Apr 12, 2018. Discharge Summary Admission Date: Apr 06, 2018 at 21:49 Discharge Date: Apr 12, 2018 Discharge Disposition: senior living facility Principal Diagnosis: Septic shock, right lower extremity cellulitis Problems/Secondary Diagnoses: Right proximal fibular fracture COPD with chronic hypoxic respiratory failure History of Ventilator dependent hypercarbic respiratory failure CAD ELMER in the setting of CKD III Hyperkalemia Major depressive disorder DMII, not on long-term insulin HLP Hypothyroidism JONATHON on CPAP History of frequent falls History of avascular necrosis of right foot Morbid obesity with BMI 52 Acute on chronic hypoxic/hypercarbic respiratory failure Permanent atrial flutter Myocardial demand ischemia Chronic diastolic CHF Chronic peripheral edema PAD RLE Leukocytosis - leukemoid reaction Right hip pain Acute gout arthritis in right foot Thrombocytopenia - acute/chronic Microcytic anemia -of iron deficiency Chronic pain syndrome Procedures: Lower extremity Doppler arterial ultrasound Lower extremity venous Doppler ultrasound Tibia/fibula x-ray-right Pelvis CT Hip, pelvis, knee, ankle, foot x-rays Chest x-ray Consultations: Orthopedic surgery Nephrology Critical care medicine Medication Reconciliation New Medications: Cephalexin Monohydrate (Cephalexin) 500 Mg Cap 500 MG PO TID for 4 Days, #12 CAP Ferrous Sulfate (Ferrous Sulfate) 325 Mg Tab 325 MG PO BID for 30 Days, #60 TAB Insulin Aspart (Novolog Flexpen) 100 Units/Ml Inj 0 UNITS SC ACHS for 30 Days Ipratropium-Albuterol (Combivent Respimat) 1 Aer Aer 1 PUFFS INH QIDR PRN for SOB/Wheezing for 30 Days Changed Medications: Prednisone Tab (Prednisone) 10 Mg Tab 30 MG PO DAILY for 5 Days (Changed from: 10 MG; UD; Removed Quantity; 4 a day for 4 days then 3 a day for 4 days then 2 a day for 4 days then one a day) x 1 day then 20mg daily x 2 days then 10mg daily x 2 days then STOP Pregabalin (Lyrica) 150 Mg Cap 150 MG PO BID for 30 Days, #60 CAP (Changed from: TID) CHANGED FOR PROPER RENAL DOSING Warfarin Sod (Jantoven) 4 Mg Tab 4 MG PO DAILY for 30 Days (Changed from: 8 MG) HOLD DOSE ON 04/12 and repeat INR on 04/13 Continued Medications: Anastrozole (Arimidex) 1 Mg Tab 1 MG PO DAILY, TAB Aspirin (Aspirin Ec) 81 Mg Tab 81 MG PO QAM Calcium Carbonate-Vitamin D W/ (Caltrate 600 Plus) 1 Tab Tab 1 TAB PO DAILY, TAB Diclofenac Sodium (Topical) (Voltaren 1% Top Gel) 1 % Gel 1 APPLN TOP QID PRN for Pain Docusate Sodium (Docusate Sodium) 100 Mg Cap 100 MG PO DAILY Ergocalciferol (Vitamin D 90696 Unit) 50,000 Unit Cap 12509 UNIT PO WK takes on sat. Febuxostat (Uloric) 40 Mg Tab 40 MG PO DAILY Levothyroxine Sodium (Synthroid) 112 Mcg Tab 112 MCG PO DAILY, TAB Magnesium Oxide (Mag-Ox) 400 Mg Tab 400 MG PO DAILY, TAB Metoprolol Tartrate (Lopressor) 25 Mg Tab 25 MG PO TID for 30 Days, #90 TAB 1 Refill Mometasone Furoate-Formoterol (Dulera 100/5 Mcg) 1 Aer Aer 2 AER INH BID Pantoprazole (Protonix) 40 Mg Tab 40 MG PO DAILY Rosuvastatin Calcium (Rosuvastatin Calcium) 10 Mg Tab 10 MG PO DAILY Sertraline (Zoloft) 100 Mg Tab 150 MG PO DAILY, TAB Spironolactone (Aldactone) 25 Mg Tab 25 MG PO DAILY, TAB Tiotropium [place] (Spiriva Handihaler) 5 Puff/90 Mcg Aerp 1 PUFF INH QAM, #1 INHALER 6 Refills Torsemide (Demadex) 10 Mg Tab 10 MG PO DAILY, #30 DOSE 6 Refills Discontinued Medications: Potassium Chloride (Klor-Con M20) 20 Meq Tabcr 20 MEQ PO BID for 30 Days, 1 Refill Discharge Exam Patient feeling very well the day of discharge. Denies chest pain shortness of breath. She is alert and awake and oriented. She is tolerating p.o. Telemetry with rate controlled atrial flutter. Still having pain in the right dorsal foot that is worse with trying to get out of bed, but okay at rest. Review of Systems: Constitutional: No fever, No chills Eyes: No problem reported ENT: No problem reported Respiratory: No problem reported Cardiovascular: No problem reported Abdomen: No problem reported Musculoskeletal: + problem reported (As per HPI) Genitourinary - Female: No problem reported Neurologic: No problem reported Psychiatric: No problem reported Endocrine: No problem reported Hematologic / Lymphatic: No problem reported Integumentary: No problem reported Physical Exam: General Appearance: WD/WN, no apparent distress, + obese Eyes: normal inspection, EOMI, sclerae normal ENT: hearing grossly normal Neck: trachea midline Respiratory/Chest: lungs clear, normal breath sounds, no respiratory distress, no accessory muscle use Cardiovascular: no murmur, + irregularly irregular (With normal rate) Abdomen / GI: normal bowel sounds, non tender, soft (And obese) Extremities: + swelling (2+ pitting edema of the legs to the proximal tibia bilaterally; exquisite tenderness to palpation over the dorsal forefoot on the right with small area of erythema) Neurologic/Psychiatric: alert, normal mood/affect, oriented x 3 Skin: warm/dry Hospital Course This patient is a 72yo female with history of COPD with chronic hypoxic respiratory failure with recent admission for ventilator dependent hypercarbic respiratory failure on home O2, CAD, CKD III, Depression, DMII, HLP, Hypothyroidism, JONATHON on CPAP, and frequent falls, who presented with pain in the RLE as well as shortness of breath. Patient was recently admitted from March 17 - March 28 after a fall onto her knees at home. During that hospital stay she developed hypercarbic respiratory failure after receiving pain medication requiring brief intubation and ICU stay. On this admission, the patient fell on her knees upon arrival to the ER and was found to be tachycardic, hypotensive with hypoxia on room air. She was admitted to the ICU and treated for septic shock with vasopressors. 1. septic shock 2nd to RLE cellulitis. Resolved. Blood cultures negative. Urine cx negative. No pneumonia on imaging. Cortisol level wnl. Transitioned IV ancef to PO keflex 500 mg 3 times daily; today is day # 7/10 of abx therapy No other source of infection found. Prior imaging of abdomen with gallstones but she has had NO abd pain, eating well, and previous LFTs wnl. 2. acute kidney injury/hyperkalemia likely sepsis-associated ATN - resolved; creatinine now at baseline. Potassium now normalized to 4.7. She was on a potassium supplement 20 mEq p.o. twice daily as well as her Aldactone. Both of those were held on admission, and the potassium will not be restarted. Follow BMP in 1 day -Okay to restart Aldactone, continue torsemide -Probably discontinue potassium chloride supplement 3. morbid obesity with BMI 52 -Needs weight loss counseling 4. Acute on chronic hypoxic/hypercarbic respiratory failure - VBG was obtained due to sleepiness in the setting of missing her CPAP 1 night and taking narcotics for pain. VBG with worsening hypercarbia and pH which is now resolved after using CPAP and avoiding narcotics. STOP narcotics. She is on home O2 and O2 sats have been stable. 5. COPD - not in exacerbation at this time. Patient has been on prednisone several times recently for recurrent flares but does NOT take prednisone chronically. Cont usual inhalers. 6. atrial flutter - good rate control with metoprolol TID. INR was elevated upon admission Coumadin was held. Resumed coumadin 8mg daily but then INR jumped up rapidly to 3.2 on the day of discharge. Hold Coumadin on 04/12 and check PT/INR in 1 day on 04/13 -Coumadin 4 mg alternating with 8 mg as per previous home dosing regimen-may need to lower this once Coumadin is restarted especially while on antibiotics Observe platelets carefully on the above. 7. JONATHON -continue CPAP HS. 8. hypothyroidism - TSH 06/2017 wnl; cont synthroid. TSH wnl this admission 9. T2DM - controlled without any medications. In fact has had some mild, asymptomatic hypoglycemia. 10. positive troponin - myocardial demand ischemia in setting of #1. ECHO w/o wall motion abnormalities. 11. CKD stage 3 - baseline Cr about 1.5/1.7. 12. chronic diastolic CHF - compensated. 13. ?PAD RLE - consider vascular surgery consult due to arterial doppler findings. But has intact pulses and good cap refill. 14. 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 Nonoperative at this time. Continue walking boot 4 weeks with weightbearing as tolerated, can remove the boot while sleeping. -Follow-up with orthopedics, Dr. Hoang Damon, in 1 month 15. h/o CAD - noted; no ischemic symptoms at this time. 16. leukocytosis - severe at time of admission up to 50 K, now is resolved. Her leukemoid reaction was likely secondary to septic shock 17. right hip pain - CT pelvis w/o fracture; likely contusion. 18. right foot pain-with exquisite tenderness and erythema on the dorsal forefoot. I believe this is midfoot gouty arthritis. Has known gout and takes Uloric which was somehow not restarted on this admission and possibly is why she is having a flare. x-rays right foot without fracture. Sed rate elevated. Colchicine x 2 doses given 1 day and started prednisone burst with taper over the next week 19. thrombocytopenia - acute/chronic - chronically her platelets are low- normal in the 150-160 range. Today they are starting to improve to 78K I suspect this is due to recent sepsis. With that said she has schistocytes on smear No evidence of DIC or TTP clinically however. Follow CBC in 1 day 20. microcytic anemia - iron studies somewhat c/w iron deficiency but not as significant as I would expect with an MCV of 69. The microcytosis has been worsening in the last year. Needs a Hemoccult stool as an outpatient and possible GI workup. No obvious blood loss while here Follow CBC in 1 day 21. Chronic pain-continues on Lyrica Opioids given hypercapnic respiratory failure on 2 different admissions this year Stable for discharge to rehab today Total Time Spent: Greater than 30 minutes This includes examination of the patient, discharge planning, medication reconciliation, and communication with other providers. Discharge Instructions Please refer to the electronic Patient Visit Report (Discharge Instructions) for additional information. Follow-Up With PCP within 2-3 days after discharge With orthopedic surgery within 1 month Additional Copies To Monica Hernandez; Esequiel Bran D.O.
[2018-04-12 14:55] VITALS: BP 103/68; PULSE 77; TEMP 37.1; O2SAT 96
== END 2018-04-12 16:03 | DRG 871 ==
LOC: C.EDB 20:01 → C.MSICU 21:49 → ENRESERV 22:06 → C.MED 04-09 12:54 → ENRESERV 04-09 13:10 → C.MED 04-09 15:02
PROVIDERS: ADMIT Internal Medicine; ATTEND Family Medicine
PROC: 05HM33Z Insertion of Infusion Device into Right Internal Jugular Vein, Percutaneous Approach (ICD-10-PCS; principal; 2018-04-06)
PROC: 0T9B70Z Drainage of Bladder with Drainage Device, Via Natural or Artificial Opening (ICD-10-PCS; 2018-04-06)
DX: A41.9 Sepsis, unspecified organism (principal); R65.21 Severe sepsis with septic shock; N17.0 Acute kidney failure with tubular necrosis; J96.22 Acute and chronic respiratory failure with hypercapnia; L03.115 Cellulitis of right lower limb; E27.40 Unspecified adrenocortical insufficiency; I24.8 Other forms of acute ischemic heart disease; M87.271 Osteonecrosis due to previous trauma, right ankle; J96.11 Chronic respiratory failure with hypoxia; I13.0 Hypertensive heart and chronic kidney disease with heart failure and stage 1 through stage 4 chronic kidney disease, or unspecified chronic kidney disease; I50.32 Chronic diastolic (congestive) heart failure; I48.92 Unspecified atrial flutter; E66.2 Morbid (severe) obesity with alveolar hypoventilation; Z68.43 Body mass index [BMI] 50.0-59.9, adult; S89.201A Unspecified physeal fracture of upper end of right fibula, initial encounter for closed fracture; W17.89XA Other fall from one level to another, initial encounter; R29.6 Repeated falls; E87.5 Hyperkalemia; M25.551 Pain in right hip; D50.9 Iron deficiency anemia, unspecified; D69.6 Thrombocytopenia, unspecified; J44.9 Chronic obstructive pulmonary disease, unspecified; Z99.81 Dependence on supplemental oxygen; E11.65 Type 2 diabetes mellitus with hyperglycemia; E11.22 Type 2 diabetes mellitus with diabetic chronic kidney disease; N18.3 Chronic kidney disease, stage 3 (moderate); E11.51 Type 2 diabetes mellitus with diabetic peripheral angiopathy without gangrene; I25.10 Atherosclerotic heart disease of native coronary artery without angina pectoris; I48.2 Chronic atrial fibrillation; I45.81 Long QT syndrome; M10.9 Gout, unspecified; G89.29 Other chronic pain; E78.5 Hyperlipidemia, unspecified; E03.9 Hypothyroidism, unspecified; F32.9 Major depressive disorder, single episode, unspecified; F17.200 Nicotine dependence, unspecified, uncomplicated; Z66 Do not resuscitate; Z86.718 Personal history of other venous thrombosis and embolism; Z87.440 Personal history of urinary (tract) infections; Z87.81 Personal history of (healed) traumatic fracture; Z79.01 Long term (current) use of anticoagulants; Z79.52 Long term (current) use of systemic steroids; Z79.811 Long term (current) use of aromatase inhibitors; Z79.82 Long term (current) use of aspirin; Z79.899 Other long term (current) drug therapy; Z88.0 Allergy status to penicillin; Z88.8 Allergy status to other drugs, medicaments and biological substances

== ENCOUNTER 2019-09-29 18:20 | Inpatient (IN) ==
[2019-09-29] MEDS ORDERED: ALBUT/IPRATROP 3MG/0.5MG NEB 3 ML VIAL NEB ONE (18:30)
[2019-09-29 19:21] LABS: Mean Corpuscular Hgb Conc 30.3 g/dL (32-36)
--- NOTE | 2019-09-29 19:23 | XRay Report ---
XR chest 1V portable CLINICAL HISTORY: 74 years-old Female presenting with weakness. TECHNIQUE: Portable upright AP view of the chest was obtained. COMPARISON: 06/11/2018. FINDINGS: Median sternotomy wires and mediastinal surgical clips noted. Atherosclerosis of the aortic arch. Car diac silhouette moderately enlarged. Pulmonary vascular prominence and significant interstitial promi nence. Bandlike opacity in the right midlung. Lung volumes are slightly increased. No other focal rob g opacity. No large effusion or pneumothorax. Osseous structures normal. IMPRESSION: 1. Cardiomegaly with volume overload and significant congestive change. Early/developing pulmonary e arti is difficult to exclude. 2. Elevated lung volume suggest underlying emphysema. ACT 112: Negative or not required by law. Electronically signed by: Sammy Armstrong M.D. 09/29/2019 7:22 PM
[2019-09-29 19:31] LABS: Hematocrit (blood only) 44.5 % (37-47); Hemoglobin 13.5 g/dL (12.0-16.0); Mean Corpuscular Hemoglobin 24.6 pg (25-34); Mean Corpuscular Volume 81.1 fL (80-100); RDW Coefficient of Variation 22.9 % (11.5-14.5); RDW Standard Deviation 68.3 fL (36.4-46.3); Red Blood Count 5.49 M/uL (4.2-5.4); White Blood Count 4.27 K/uL (4.8-10.8)
[2019-09-29 19:40] LABS: Albumin Level 2.7 gm/dl (3.4-5.0); BUN Creatinine Ratio 21.2 (10-20); Creatinine Clr Calc Pharmacy 69.3 ml/min; Est GFR (African American) 64.6; Est GFR (Non-African American) 55.7; Potassium 4.1 mmol/L (3.5-5.1)
[2019-09-29 19:45] LABS: Influenza A virus by PCR Neg for Influ A (Neg); Influenza B virus by PCR Neg for Influ B (Neg)
--- NOTE | 2019-09-29 19:48 | CT Scan Report ---
CT head/brain wo con CLINICAL HISTORY: 74 years-old Female presenting with Pt c/o AMS, hx of skull fx. TECHNIQUE: Multidetector CT imaging of the head was performed without the use of intravenous contrast . IV contrast: None. One or more dose lowering techniques were used consistent with the principles of ALARA (as low as reasonably achievable), including automatic exposure control, mA or kV adjustment t o individual patient size, and/or use of iterative reconstruction. COMPARISON: 03/17/2018. CT DOSE (mGy.cm): The estimated cumulative dose is 906.34 mGycm. FINDINGS: Technical Assistant topogram: Unremarkable. Ventricles and sulci normal in size. No hemorrhage. Periventricular and subcortical white matter hypo attenuation, nonspecific but likely indicative of chronic small vessel ischemic change. Limited corti aleyda infarct in the left frontal vertex. This is new from prior and may be acute or subacute given tommy t regional sulcal effacement. No midline shift. No extra-axial fluid collection. Mild mucosal thicken ing in the ethmoid are cells and right sphenoid sinus. Calvarium intact. IMPRESSION: 1. Suspected acute or subacute infarct in the left frontal lobe near the vertex. This is new from pr ior. Brain MR could confirm this finding and evaluate acuity if clinically necessary. Underlying lesi on considered unlikely. 2. Chronic small vessel ischemic change. The report will be called/faxed according to standard departmental protocol for a critical finding. ACT 112: Negative or not required by law. Electronically signed by: Sammy Armstrong M.D. 09/29/2019 7:47 PM
[2019-09-29 19:50] LABS: Albumin Globulin Ratio 0.7 (0.9-2); Bilirubin,Total 0.6 mg/dl (0.2-1); Thyroid Stimulating Hormone 1.28 uIu/ml (0.300-4.500); Total Protein 6.7 gm/dl (6.4-8.2); Troponin I 0.04 ng/ml (0-0.045)
[2019-09-29] MEDS ORDERED: FUROSEMIDE 40 MG/4 ML VIAL IV STA (19:54)
[2019-09-29 20:02] LABS: Platelet Count 122 K/uL (130-400)
[2019-09-29 20:03] LABS: Basophils # (auto) 0.01 K/uL (0-0.2); Basophils % (auto) 0.2 %; Eosinophils # (auto) 0.05 K/uL (0-0.5); Eosinophils % (auto) 1.2 %; Immature Granulocytes # (auto) 0.01 K/uL (0.00-0.02); Immature Granulocytes % (auto) 0.2 %; Lymphocytes # (auto) 1.11 K/uL (1.2-3.4); Monocytes # (auto) 0.68 K/uL (0.11-0.59); Monocytes % (auto) 15.9 %; Neutrophils # (auto) 2.41 K/uL (1.4-6.5); Neutrophils % (auto) 56.5 %; Platelet Estimate Decreased (Normal)
[2019-09-29 20:41] LABS: Appearance Urine Cloudy (Clear); Bacteria Urine Automated Negative (Negative); Bilirubin Urine Negative (Negative); Blood Urine Trace (Negative); Color Urine Yellow; Glucose Urine UA Negative (Negative); Ketones Urine Negative (Negative); Leukocyte Esterase Urine 2+ (Negative); Nitrite Urine Positive (Negative); Protein Urine 1+ (Negative); RBC Urine Automated 0-4 /hpf (0-4); Specific Gravity Urine 1.014 (1.000-1.030); Urobilinogen Urine Negative (Negative); WBC Urine Automated >30 /hpf (0-5); pH Urine 5.5 (4.5-7.5)
--- NOTE | 2019-09-29 21:16 | History & Physical Report ---
Date of Service September 29, 2019 Assessment & Plan (1) Acute respiratory failure with hypercapnia: Edel is a 74-year-old female with past medical history of lung cancer with multiple metastasis to brain, chronic kidney disease stage IV, hypertension, chronic diastolic heart failure, GERD, hypothyroidism, CAD, diabetes mellitus with neuropathy, COPD, prolonged QT, and cellulitis who presented to [facility] from [facility] for hypoxia, weakness/confusion, and shortness of breath. Acute hypoxic, hypercapnic respiratory failure 2/2 AOC CHF exacerbation Clinically fluid overloaded on exam Chest x-ray shows cardiomegaly with volume overload and significant congestive change. Early/developing pulmonary edema is difficult to exclude. Lasix 40 mg IV given in ED Continue Lasix 40 mg IV twice daily, follow renal function and hold/reduce for creatinine elevation BiPAP as needed Acute on chronic CHF exacerbation, history of CAD BNP 2478, volume overloaded on exam, x-ray shows congestive overload Last echo 2017, EF 55 to 60% Lasix as above Continue metoprolol 12.5 mg p.o. twice daily Continue rosuvastatin 10 mg p.o. nightly Nitro 0.4 sublingual as needed Greco in place Subacute stroke CT head shows left frontal acute versus subacute stroke. Patient is outside of TPA window. On warfarin and aspirin therapy prior to injection Confusion 2/ suspected metabolic encephalopathy as above but stroke may be contributing MRI could be performed to establish plan course. Defer at this time. Patient may benefit from addition or conversion to Plavix, defer to primary team for ongoing discussion. History of breast cancer, mets x4 to brain On Armidex 1 mg p.o. every morning Patient and family report not pursuing chemotherapy, surgery, or curative treatment at this time See goals of care discussion below Goals of care Her son Tayo and daughter Valentine are present at bedside. They reported they had not had goals of care discussions previously, but feel that their mother's clinical course was worsening and that she was not tolerating rehab well and was unlikely to return to her baseline level of function. She is not currently a candidate for chemotherapy. Family, and they feel that they would not want chemotherapy, surgery, or radiation. He reports he would want full medical treatment including antibiotics, intubation for declining respiratory status if necessary and possible temporary, but would not want CPR or intubation in the setting of cardiac arrest. Discussed palliative care and hospice potential, they feel that potential return home with hospice services are consistent with goals of care at this time but comfort measures only. They would like to speak with palliative care during admission. DNR/DNI status placed consistent with above discussion. Palliative care consult placed. CKD Baseline creatinine approximately 1.1 Creatinine 1.99 on admission BMP daily Hypertension Prolactin 25 mg p.o. every morning Beta-miladys as above History of A. fib with PE Continue warfarin 6 mg nightly INR daily Depression Continue sertraline 50 mg every morning GERD Continue Protonix 40 mg p.o. every morning History of gout Continue Uloric 40 mg p.o. every morning Hypothyroidism Continue Synthroid 112 mcg p.o. daily TSH within normal limits on admission DVT prophylaxis: Warfarin as above Diet: Heart healthy, sodium restriction CODE STATUS: DNR/DNI. Please see HPI and above for goals of care discussion. (2) Acute on chronic diastolic (congestive) heart failure: (3) Anticoagulated on warfarin: (4) Hypertension: (5) Chronic kidney disease, stage 4 (severe): (6) Hypoxia: (7) Hx pulmonary embolism: (8) Hypertension: (9) Hypothyroid: (10) CAD (coronary artery disease): (11) DVT prophylaxis: History of Present Illness Chief Complaint: Shortness of breath, weakness Primary Care Provider: Federico Hernandez Edel is a 74-year-old female with past medical history of lung cancer with multiple metastasis to brain, chronic kidney disease stage IV, hypertension, chronic diastolic heart failure, GERD, hypothyroidism, CAD, diabetes mellitus with neuropathy, COPD, prolonged QT, and cellulitis who presented to [facility] from [facility] for hypoxia, weakness/confusion, and shortness of breath. Edel was last in her normal state of health on Saturday. Saturday evening she developed mild shortness of breath and fatigue. Her fatigue progressively increased and her son and daughter noted that she seemed very tired and a little bit delirious this morning. Her daughter noted that she seemed to be having hallucinations and was asking "who is the child that is with you ". She was noted to be hypoxic and was transferred to the emergency department for further care. No new cold-like symptoms. No diarrhea or constipation. Afebrile, no fever/chills/sweats. She has had similar symptoms before with heart failure exacerbations managed with Lasix. On admission she was noted to have a subacute left frontal infarct of unclear age. She has a history of A. fib and PE for which she is on chronic warfarin therapy. She is on aspirin at baseline. Her son Tayo and daughter Valentine are present at bedside. They reported they had not had goals of care discussions previously, but feel that their mother's clinical course was worsening and that she was not tolerating rehab well and was unlikely to return to her baseline level of function. She is not currently a candidate for chemotherapy. Family, and they feel that they would not want chemotherapy, surgery, or radiation. He reports he would want full medical treatment including antibiotics, intubation for declining respiratory status if necessary and possible temporary, but would not want CPR or intubation in the setting of cardiac arrest. Discussed palliative care and hospice potential, they feel that potential return home with hospice services are consistent with goals of care at this time but comfort measures only. They would like to speak with palliative care during admission. DNR/DNI status placed consistent with above discussion. Medical history: Reviewed as above Medications: Reviewed, see EMR. Up-to-date from [facility]. Allergies: Allergic to penicillin, melatonin Surgical history: Reviewed, see EMR No alcohol use. Former smoker. No recreational drug use. Social: At [facility], with family as above. CODE STATUS: DNR/DNI, see above Allergies Allergy/AdvReac Type Severity Reaction Status Date / Time melatonin Allergy Severe RASH Verified 09/29/19 20:32 Penicillins Allergy Unknown UNLNOWN Verified 09/29/19 20:32 Home Medications Home Medications Medication Instructions Recorded Confirmed Type Calcium 600 + D(3) 1 tab PO HS 05/19/18 09/29/19 History acetaminophen [Tylenol] 650 mg PO HS 05/19/18 09/29/19 History anastrozole [Arimidex] 1 mg PO QAM 05/19/18 09/29/19 History aspirin [Aspirin Low Dose] 81 mg PO QAM 05/19/18 09/29/19 History diclofenac sodium [Voltaren] 1 applic TOPICAL QID PRN 05/19/18 09/29/19 History febuxostat [Uloric] 40 mg PO QAM 05/19/18 09/29/19 History levothyroxine [Synthroid] 112 mcg PO QAM 05/19/18 09/29/19 History pantoprazole [Protonix] 40 mg PO QAM 05/19/18 09/29/19 History rosuvastatin [Crestor] 10 mg PO HS 05/19/18 09/29/19 History spironolactone 25 mg PO QAM 05/19/18 09/29/19 History metoprolol tartrate 12.5 mg PO BID #0 tab 06/17/18 09/29/19 Rx docusate sodium 100 mg capsule 100 mg PO QAM cap 05/08/19 09/29/19 History fluticasone furoate 100 1 puffs INHALATION DAILY ea 05/08/19 09/29/19 History mcg-vilanterol 25 mcg/dose inhalation powder furosemide 40 mg tablet 40 mg PO QAM tab 05/08/19 09/29/19 History nitroglycerin 400 mcg/spray 400 mcg SL UD PRN gm 05/08/19 09/29/19 History translingual potassium chloride 20 mEq 20 meq PO QAM #90 tab 05/08/19 09/29/19 History tablet,extended release pregabalin 150 mg capsule 150 mg PO BID cap 05/08/19 09/29/19 History sertraline 100 mg tablet 50 mg PO QAM tab 05/08/19 09/29/19 History warfarin 6 mg tablet 6 mg PO HS tab 05/08/19 09/29/19 History ergocalciferol (vitamin D2) 1,250 50,000 unit PO MONTHLY #12 cap 06/22/19 09/29/19 Rx mcg (50,000 unit) capsule furosemide [Lasix] 20 mg PO HS 09/29/19 09/29/19 History Past Med/Surg History Medical History Acute kidney failure (Resolved) Atrial fibrillation CAD (coronary artery disease) Chronic hypercapnic respiratory failure (Chronic) Chronic kidney disease, stage 4 (severe) (Chronic) Congestive heart failure COPD (chronic obstructive pulmonary disease) Diabetes mellitus with neuropathy Diabetes mellitus, type 2 Diastolic CHF (Chronic) GERD (gastroesophageal reflux disease) Gout HX: breast cancer Hypertension (Chronic) Hypothyroid On home oxygen therapy JONATHON (obstructive sleep apnea) (Chronic) Pulmonary edema Tobacco use Vitamin D deficiency (Chronic) Surgical History History of coronary artery bypass graft Family History Other No pertinent family history Social History Preferred Language: Icelandic Communication Ability: Effective Flavor Maker Required: No Beliefs That Will Affect Care: None Current Living Situation: [facility] Current Living Situation Comment: Currently at [facility] for rehab Other Information That Helps Us Care for You: No Feels Safe at Home: Yes Safety Concerns: Feels Safe At This Time Smoking Status: Former smoker Smoking End Date: Patient quit smoking in 2018 ; Second Hand Exposure: Yes ; Hx Alcohol Use: No Hx Substance Use: No Review of Systems Review of Systems: Constitutional: Denies fever, chills Eyes: Denies acute vision change ENT: Denies ear pain, sore throat, sinus pain Cardiovascular: Denies Chest pain, chest pressure, palpitations. Endorses extremity swelling Respiratory: Endorses dry cough, shortness of breath. Denies sputum production. Endorses difficulty breathing. Gastrointestinal: Denies nightly abdominal pain, nausea, vomiting, constipation, diarrhea Genitourinary: Denies change in urination, dysuria Musculoskeletal: Versus acute global weakness. Denies focal muscle or joint pain. Integumentary:Denies new rash/lesions. Endorses bruise on right face from prior fall, no acute bruising. No recent falls. Neurological: Endorses numbness/tingling in feet bilaterally 2/2 diabetic neuropathy. Physical Exam Physical Exam: General: Appears fatigued, somnolent. Oriented to name only. On BiPAP. HEENT: Bruising present on the right maxilla/cheek. External nasal and ear anatomy normal without difficulty. Mucous membranes moist. Pulm: Bilateral crackles/light rales.. Symmetrical chest rise. On BiPAP. Cardiac: Irregularly irregular, heart sounds distant. Radial pulses intact and symmetrical. Abdominal: Obese, nonrigid, nontender. Extremities: 1+ edema to the calf bilaterally. Neuro exam limited by patient's somnolence. Interlocking Installer strength intact bilaterally, symmetrical. Patient able to wiggle toes bilaterally. Pupils equal and responsive to light and accommodation, extraocular movements intact without nystagmus. Tongue protrudes midline. No facial asymmetry, eyebrow raise, smile intact. Cheek puff not performed due to BiPAP. Hearing grossly intact, vision grossly intact. Results & Data Vital Signs (Past 12 Hours) Vital Signs Temp Pulse Pulse Resp BP BP Pulse Ox 09/29/19 20:01 99 H 22 133/83 98 09/29/19 18:39 98 H 98 H 24 99 09/29/19 18:31 100 09/29/19 18:26 86 18 141/75 H 92 09/29/19 18:20 37.2 C 87 17 141/75 H 98 Supervising Physician Co-Signing Physician Notes Patient was seen and examined by me personally. I reviewed the chart, the orders and discussed the case in detail with Dr. Sammy Headley MD . I read this H&P and agree with its contents to entirety. Resident Activity Tracking Resident Involvement: Resident Care Provided Care Provided: Adult Hospital Medicine
[2019-09-29 21:42] LABS: INR 1.1 (0.9-1.1); Partial Thromboplastin Time 27.5 Seconds (21.0-31.0); Prothrombin Time 11.4 Seconds (9.0-12.0)
[2019-09-29] MEDS ORDERED: ONDANSETRON INJ 2 MG/ML 2 ML VIAL IV PRN (22:08)
[2019-09-29] MEDS ORDERED: ACETAMINOPHEN 325 MG TAB PO PRN (22:08)
[2019-09-29] MEDS ORDERED: DICLOFENAC SOD 1% GEL 100 GM TUBE EXT PRN (22:08)
[2019-09-29] MEDS: WARFARIN SOD 6 MG TAB PO SCH (23:33)
[2019-09-29] MEDS: PREGABALIN 150 MG CAP PO SCH (23:33)
[2019-09-29] MEDS: METOPROLOL TARTRATE 25 MG TAB PO SCH (23:33)
[2019-09-30] MEDS: [UNRECOGNIZED DRUG - REMARK] SCH ×4 (00:06→23:24)
--- NOTE | 2019-09-30 00:10 | Emergency Department Note ---
Entered by Mateo Manzano acting as a scribe for Jeff Shultz MD History of Present Illness General Chief complaint: Respiratory Distress Stated complaint: RESP. DISTRESS Time Seen by Provider: 09/29/19 18:23 Source: family Limitations: other (respiratory distress) History of Present Illness Maximum Pain Intensity: 7 The patient is a 74 y/o female who presents to the ED w/ CC of hypoxia beginning 2 hours prior to arrival. The patient is coming from home and was more hypoxic. EMS reports the patient was given an hour long breathing treatment at home and presents to the ED with a nonrebreather. The patient is complaining of shortness of breath. HPI is limited secondary to the patient's respiratory distress. Home Medications Home Medications Medication Instructions Recorded Confirmed Type Calcium 600 + D(3) 1 tab PO HS 05/19/18 09/29/19 History acetaminophen [Tylenol] 650 mg PO HS 05/19/18 09/29/19 History anastrozole [Arimidex] 1 mg PO QAM 05/19/18 09/29/19 History aspirin [Aspirin Low Dose] 81 mg PO QAM 05/19/18 09/29/19 History diclofenac sodium [Voltaren] 1 applic TOPICAL QID PRN 05/19/18 09/29/19 History febuxostat [Uloric] 40 mg PO QAM 05/19/18 09/29/19 History levothyroxine [Synthroid] 112 mcg PO QAM 05/19/18 09/29/19 History pantoprazole [Protonix] 40 mg PO QAM 05/19/18 09/29/19 History rosuvastatin [Crestor] 10 mg PO HS 05/19/18 09/29/19 History spironolactone 25 mg PO QAM 05/19/18 09/29/19 History metoprolol tartrate 12.5 mg PO BID #0 tab 06/17/18 09/29/19 Rx docusate sodium 100 mg capsule 100 mg PO QAM cap 05/08/19 09/29/19 History fluticasone furoate 100 1 puffs INHALATION DAILY ea 05/08/19 09/29/19 History mcg-vilanterol 25 mcg/dose inhalation powder furosemide 40 mg tablet 40 mg PO QAM tab 05/08/19 09/29/19 History nitroglycerin 400 mcg/spray 400 mcg SL UD PRN gm 05/08/19 09/29/19 History translingual potassium chloride 20 mEq 20 meq PO QAM #90 tab 05/08/19 09/29/19 History tablet,extended release pregabalin 150 mg capsule 150 mg PO BID cap 05/08/19 09/29/19 History sertraline 100 mg tablet 50 mg PO QAM tab 05/08/19 09/29/19 History warfarin 6 mg tablet 6 mg PO HS tab 05/08/19 09/29/19 History ergocalciferol (vitamin D2) 1,250 50,000 unit PO MONTHLY #12 cap 06/22/19 09/29/19 Rx mcg (50,000 unit) capsule furosemide [Lasix] 20 mg PO HS 09/29/19 09/29/19 History Allergies Allergy/AdvReac Type Severity Reaction Status Date / Time melatonin Allergy Severe RASH Verified 09/29/19 20:32 Penicillins Allergy Unknown UNLNOWN Verified 09/29/19 20:32 Past Med/Surg History Medical History Acute kidney failure (Resolved) Atrial fibrillation CAD (coronary artery disease) Chronic hypercapnic respiratory failure (Chronic) Chronic kidney disease, stage 4 (severe) (Chronic) Congestive heart failure COPD (chronic obstructive pulmonary disease) Diabetes mellitus with neuropathy Diabetes mellitus, type 2 Diastolic CHF (Chronic) GERD (gastroesophageal reflux disease) Gout HX: breast cancer Hypertension (Chronic) Hypothyroid On home oxygen therapy JONATHON (obstructive sleep apnea) (Chronic) Pulmonary edema Tobacco use Vitamin D deficiency (Chronic) Surgical History History of coronary artery bypass graft Family History Other No pertinent family history Social History Preferred Language: Gambian Communication Ability: Unable Outsewer Required: No Beliefs That Will Affect Care: None Current Living Situation: [facility] Current Living Situation Comment: Currently at [facility] for rehab Other Information That Helps Us Care for You: No Feels Safe at Home: Yes Safety Concerns: Feels Safe At This Time Smoking Status: Former smoker Smoking End Date: Patient quit smoking in 2018 ; Second Hand Exposure: Yes ; Hx Alcohol Use: No Hx Substance Use: No Review of Systems A total of 10 systems reviewed and were otherwise negative Physical Exam Vital Signs Vital Signs - 24 hr 09/29/19 18:20 09/29/19 18:26 09/29/19 18:31 Temperature 37.2 C Temperature Source Oral Pulse Rate 87 86 Pulse Rate [Left Finger] Respiratory Rate 17 18 Respiratory Effort / Characteristics Labored Respiratory Depth Normal Respiratory Pattern Regular Blood Pressure 141/75 H 141/75 H Blood Pressure [Right Arm] Blood Pressure Mean 97 108 Blood Pressure Mean [Right Arm] Blood Pressure Position [Right Arm] Pulse Oximetry 98 92 100 Oxygen Delivery Method Nebulizer BiPAP Oxygen Flow Rate 6 Fraction of Inspired Oxygen Sepsis Recent Fever Within 48 Hours No Sepsis New/Unexplained Change in Mental Status No Sepsis Action Taken by Nursing No Action Required 09/29/19 18:33 09/29/19 18:39 09/29/19 20:01 Temperature Temperature Source Pulse Rate 98 H Pulse Rate [Left Finger] 98 H 99 H Respiratory Rate 24 22 Respiratory Effort / Characteristics Spontaneous Labored Spontaneous Labored Respiratory Depth Respiratory Pattern Regular Tachypnea Blood Pressure Blood Pressure [Right Arm] 133/83 Blood Pressure Mean Blood Pressure Mean [Right Arm] 99 Blood Pressure Position [Right Arm] Lying Pulse Oximetry 99 98 Oxygen Delivery Method BiPAP BiPAP Oxygen Flow Rate Fraction of Inspired Oxygen 40 Sepsis Recent Fever Within 48 Hours Sepsis New/Unexplained Change in Mental Status Sepsis Action Taken by Nursing 09/29/19 20:59 Temperature Temperature Source Pulse Rate Pulse Rate [Left Finger] 123 H Respiratory Rate 22 Respiratory Effort / Characteristics Respiratory Depth Respiratory Pattern Blood Pressure Blood Pressure [Right Arm] 143/91 H Blood Pressure Mean Blood Pressure Mean [Right Arm] 108 Blood Pressure Position [Right Arm] Pulse Oximetry 96 Oxygen Delivery Method BiPAP Oxygen Flow Rate Fraction of Inspired Oxygen Sepsis Recent Fever Within 48 Hours Sepsis New/Unexplained Change in Mental Status Sepsis Action Taken by Nursing GENERAL: Awake, alert, well-appearing, in no acute distress HENT: Normocephalic, atraumatic. Oropharynx unremarkable. EYES: Normal conjunctiva. Sclera non-icteric. NECK: Supple. No nuchal rigidity. FROM. No JVD. RESPIRATORY: Bilateral wheezing throughout all lung peng. CARDIAC: Regular rate, normal rhythm. Extremities warm and well perfused. Pulses equal. ABDOMEN: Soft, non-distended. No tenderness to palpation. No rebound or guarding. No masses. RECTAL: Deferred. MUSCULOSKELETAL: Chest examination reveals no tenderness. The back is symmetrical on inspection without obvious abnormality. There is no CVA tenderness to palpation. No joint edema. LOWER EXTREMITIES: Calves are equal size bilaterally and non-tender. No edema. No discoloration. NEURO: Normal sensorium. No sensory or motor deficits noted. SKIN: No rash or jaundice noted. Course Course 1829: Past medical records reviewed. The patient was evaluated in room [facility]. A complete history and physical exam was performed. 1958: Upon reevaluation, the patient is resting comfortably. I discussed laboratory and radiographic results with her and her family. They verbalized agreement of the treatment plan. The patient will be evaluated for further management and care. 2000: I reviewed the patient's case with Dr. Sinclair, [facility] Hospitalist. He will evaluate the patient for further management. Administered Medications Acetaminophen (Tylenol) 650 mg PO [facility] Stop: 10/30/19 20:59 Last Admin: 10/02/19 20:32 Dose: 650 mg Documented by: [id number] Admin: 10/01/19 21:26 Dose: 650 mg Documented by: [id number] Admin: 09/30/19 20:42 Dose: Not Given Documented by: [id number] [facility]) [facility] [place] [facility] Stop: 10/30/19 08:59 Last Admin: 10/03/19 09:05 Dose: 1 mg Documented by: [id number] Cosigned by: [id number] Admin: 10/02/19 08:40 Dose: 1 mg Documented by: [id number] Cosigned by: [id number] Admin: 10/01/19 08:36 Dose: 1 mg Documented by: [id number] Cosigned by: [id number] Admin: 09/30/19 11:16 Dose: Not Given Documented by: [id number] Aspirin (Ecotrin Ectab) [facility] [place] Stop: 10/30/19 08:59 Last Admin: 10/03/19 09:04 Dose: 81 mg Documented by: [id number] Admin: 10/02/19 08:40 Dose: 81 mg Documented by: [id number] Admin: 10/01/19 08:36 Dose: 81 mg Documented by: [id number] Admin: 09/30/19 11:16 Dose: Not Given Documented by: [id number] Docusate Sodium (Colace) 100 mg PO QAM [facility] Stop: 10/30/19 08:59 Last Admin: 10/03/19 09:04 Dose: 100 mg Documented by: [id number] Admin: 10/02/19 08:39 Dose: 100 mg Documented by: [id number] Admin: 10/01/19 08:35 Dose: 100 mg Documented by: [id number] Admin: 09/30/19 11:16 Dose: Not Given Documented by: [id number] Febuxostat (Uloric) 40 mg PO DAILY [facility] Stop: 11/01/19 08:59 Last Admin: 10/03/19 09:03 Dose: 40 mg Documented by: [id number] Admin: 10/02/19 08:40 Dose: 40 mg Documented by: [id number] Fluticasone/Vilanterol (Breo Ellipta 100/25 Mcg Inh) 1 puffs INH DAILY [facility] Stop: 10/30/19 08:59 Last Admin: 10/03/19 09:05 Dose: 1 puffs Documented by: [id number] Admin: 10/02/19 08:39 Dose: 1 puffs Documented by: [id number] Admin: 10/01/19 08:37 Dose: 1 puffs Documented by: [id number] Admin: 09/30/19 11:16 Dose: Not Given Documented by: [id number] Furosemide (Lasix) 40 mg PO QAM [facility] Stop: 11/02/19 08:59 Last Admin: 10/03/19 09:10 Dose: Not Given Documented by: [id number] Furosemide (Lasix) 20 mg PO HS [facility] Stop: 11/01/19 20:59 Last Admin: 10/02/19 20:33 Dose: 20 mg Documented by: [id number] Ipratropium Swatara (Atrovent 0.02% 0.5mg/2.5ml) 0.5 mg INH Q6R [facility] Stop: 10/30/19 11:29 Last Admin: 10/03/19 13:32 Dose: 0.5 mg Documented by: [id number] Admin: 10/03/19 07:00 Dose: 0.5 mg Documented by: [id number] Admin: 10/03/19 01:00 Dose: 0.5 mg Documented by: [id number] Admin: 10/02/19 19:33 Dose: 0.5 mg Documented by: [id number] Admin: 10/02/19 13:22 Dose: 0.5 mg Documented by: [id number] Admin: 10/02/19 07:09 Dose: 0.5 mg Documented by: [id number] Admin: 10/02/19 01:11 Dose: 0.5 mg Documented by: [id number] Admin: 10/01/19 19:06 Dose: 0.5 mg Documented by: [id number] Admin: 10/01/19 13:25 Dose: 0.5 mg Documented by: [id number] Admin: 10/01/19 07:14 Dose: 0.5 mg Documented by: [id number] Admin: 10/01/19 00:47 Dose: 0.5 mg Documented by: [id number] Admin: 09/30/19 19:36 Dose: 0.5 mg Documented by: [id number] Admin: 09/30/19 13:03 Dose: 0.5 mg Documented by: [id number] Admin: 09/30/19 11:49 Dose: 0.5 mg Documented by: [id number] Levalbuterol HCl (Xopenex 0.63 Mg/3 Ml Neb) 0.63 mg NEB Q6R [facility] Stop: 10/30/19 11:29 Last Admin: 10/03/19 13:32 Dose: 0.63 mg Documented by: [id number] Admin: 10/03/19 07:00 Dose: 0.63 mg Documented by: [id number] Admin: 10/03/19 01:00 Dose: 0.63 mg Documented by: [id number] Admin: 10/02/19 19:33 Dose: 0.63 mg Documented by: [id number] Admin: 10/02/19 13:22 Dose: 0.63 mg Documented by: [id number] Admin: 10/02/19 07:09 Dose: 0.63 mg Documented by: [id number] Admin: 10/02/19 01:11 Dose: 0.63 mg Documented by: [id number] Admin: 10/01/19 19:06 Dose: 0.63 mg Documented by: [id number] Admin: 10/01/19 13:25 Dose: 0.63 mg Documented by: [id number] Admin: 10/01/19 07:14 Dose: 0.63 mg Documented by: [id number] Admin: 10/01/19 00:47 Dose: 0.63 mg Documented by: [id number] Admin: 09/30/19 19:36 Dose: 0.63 mg Documented by: [id number] Admin: 09/30/19 13:03 Dose: 0.63 mg Documented by: [id number] Admin: 09/30/19 11:49 Dose: 0.63 mg Documented by: [id number] Levothyroxine Sodium (Synthroid) 112 mcg PO DAILYBB [facility] Stop: 10/30/19 06:29 Last Admin: 10/03/19 06:47 Dose: 112 mcg Documented by: [id number] Admin: 10/02/19 08:40 Dose: 112 mcg Documented by: [id number] Admin: 10/01/19 05:48 Dose: Not Given Documented by: [id number] Admin: 09/30/19 06:03 Dose: Not Given Documented by: [id number] Magnesium Oxide (Mag-Ox) 400 mg PO BID [facility] Stop: 10/31/19 07:04 Last Admin: 10/03/19 09:04 Dose: 400 mg Documented by: [id number] Admin: 10/02/19 20:33 Dose: 400 mg Documented by: [id number] Admin: 10/02/19 08:40 Dose: 400 mg Documented by: [id number] Admin: 10/01/19 21:26 Dose: 400 mg Documented by: [id number] Admin: 10/01/19 10:00 Dose: 400 mg Documented by: [id number] Admin: 10/01/19 08:35 Dose: 400 mg Documented by: [id number] Metoprolol Tartrate (Lopressor) 12.5 mg PO BID [facility] Stop: 10/29/19 22:07 Last Admin: 10/03/19 09:04 Dose: 12.5 mg Documented by: [id number] Admin: 10/02/19 20:33 Dose: 12.5 mg Documented by: [id number] Admin: 10/02/19 08:39 Dose: 12.5 mg Documented by: [id number] Admin: 10/01/19 21:28 Dose: 12.5 mg Documented by: [id number] Admin: 10/01/19 08:33 Dose: Not Given Documented by: [id number] Admin: 09/30/19 20:42 Dose: Not Given Documented by: [id number] Admin: 09/30/19 11:16 Dose: Not Given Documented by: [id number] Admin: 09/29/19 23:33 Dose: 12.5 mg Documented by: [id number] Multivitamins/Minerals (Caltrate Plus) 1 tab PO HS [facility] Stop: 10/30/19 20:59 Last Admin: 10/02/19 20:32 Dose: 1 tab Documented by: [id number] Admin: 10/01/19 21:28 Dose: 1 tab Documented by: [id number] Admin: 09/30/19 20:42 Dose: Not Given Documented by: [id number] Pantoprazole Sodium (Protonix) 40 mg PO QAM [facility] Stop: 10/30/19 08:59 Last Admin: 10/03/19 09:04 Dose: 40 mg Documented by: [id number] Admin: 10/02/19 08:40 Dose: 40 mg Documented by: [id number] Admin: 10/01/19 08:37 Dose: 40 mg Documented by: [id number] Admin: 09/30/19 11:16 Dose: Not Given Documented by: [id number] Polyethylene Glycol (Miralax Powder Packet) 17 gm PO DAILY [facility] Stop: 11/02/19 09:59 Last Admin: 10/03/19 09:21 Dose: 17 gm Documented by: [id number] Admin: 10/03/19 09:17 Dose: 17 gm Documented by: [id number] Potassium Chloride (Klor-Con M20) 20 meq PO QAM [facility] Stop: 10/30/19 08:59 Last Admin: 10/03/19 09:04 Dose: 20 meq Documented by: [id number] Admin: 10/02/19 08:39 Dose: 20 meq Documented by: [id number] Admin: 10/01/19 08:38 Dose: 20 meq Documented by: [id number] Admin: 09/30/19 11:16 Dose: Not Given Documented by: [id number] Pregabalin (Lyrica) 150 mg PO BID [facility] Stop: 10/29/19 22:07 Last Admin: 10/03/19 09:10 Dose: 150 mg Documented by: [id number] Admin: 10/02/19 21:06 Dose: 150 mg Documented by: [id number] Admin: 10/02/19 08:39 Dose: 150 mg Documented by: [id number] Admin: 10/01/19 21:29 Dose: 150 mg Documented by: [id number] Admin: 10/01/19 10:00 Dose: 150 mg Documented by: [id number] Admin: 09/30/19 20:42 Dose: Not Given Documented by: [id number] Admin: 09/30/19 11:16 Dose: Not Given Documented by: [id number] Admin: 09/29/19 23:33 Dose: 150 mg Documented by: [id number] Rosuvastatin Calcium (Crestor) 10 mg PO [facility] Stop: 10/30/19 20:59 Last Admin: 10/02/19 20:32 Dose: 10 mg Documented by: [id number] Admin: 10/01/19 21:26 Dose: 10 mg Documented by: [id number] Admin: 09/30/19 20:42 Dose: Not Given Documented by: [id number] Sertraline HCl (Zoloft) [address] [facility] Stop: 10/30/19 08:59 Last Admin: 10/03/19 09:04 Dose: 50 mg Documented by: [id number] Admin: 10/02/19 08:40 Dose: 50 mg Documented by: [id number] Admin: 10/01/19 08:36 Dose: 50 mg Documented by: [id number] Admin: 09/30/19 11:16 Dose: Not Given Documented by: [id number] Spironolactone (Aldactone) [address] [facility] Stop: 10/30/19 08:59 Last Admin: 10/03/19 09:10 Dose: 25 mg Documented by: [id number] Admin: 09/30/19 11:15 Dose: Not Given Documented by: [id number] Warfarin Sodium (Coumadin) 6 mg PO [facility] Stop: 10/29/19 20:59 Last Admin: 10/02/19 20:32 Dose: 6 mg Documented by: [id number] Admin: 10/01/19 21:27 Dose: 6 mg Documented by: [id number] Admin: 09/30/19 20:42 Dose: Not Given Documented by: [id number] Admin: 09/29/19 23:33 Dose: 6 mg Documented by: [id number] Discontinued Medications Albuterol (Duoneb) 12 ml NEB ONE ONE Stop: 09/29/19 18:31 Last Admin: 09/29/19 18:39 Dose: 12 ml Documented by: [id number] Aspirin (Aspirin) 324 mg PO NOW STA Stop: 09/30/19 03:59 Last Admin: 09/30/19 04:01 Dose: 324 mg Documented by: [id number] Furosemide (Lasix) 40 mg IV NOW STA Stop: 09/29/19 19:55 Last Admin: 09/29/19 20:33 Dose: 40 mg Documented by: [id number] Acetaminophen (Ofirmev) 1,000 mg in 100 mls @ 400 mls/hr IV Q8H PRN PRN Reason: Pain Stop: 10/03/19 15:30 Last Infusion: 10/02/19 09:04 Dose: 0 mls/hr Documented by: [id number] Admin: 10/02/19 08:49 Dose: 400 mls/hr Documented by: [id number] Infusion: 09/30/19 16:28 Dose: 0 mls/hr Documented by: [id number] Admin: 09/30/19 16:05 Dose: 400 mls/hr Documented by: [id number] Furosemide 20 mg/ Syringe 2 mls @ 4 mls/min IV ONE ONE Stop: 09/30/19 17:01 Last Admin: 09/30/19 17:53 Dose: 4 mls/min Documented by: [id number] Magnesium Sulfate/Dextrose (Magnesium Sulfate / D5w) 1 gm in 100 mls @ 100 mls/hr IV ONE ONE Stop: 10/01/19 08:07 Last Infusion: 10/01/19 09:32 Dose: 0 mls/hr Documented by: [id number] Admin: 10/01/19 08:32 Dose: 100 mls/hr Documented by: [id number] Potassium Chloride (K Luís / Wtr) 10 meq in 100 mls @ 100 mls/hr IV Q1H [facility] Stop: 10/02/19 13:29 Last Admin: 10/02/19 10:41 Dose: Not Given Documented by: [id number] Admin: 10/02/19 10:41 Dose: Not Given Documented by: [id number] Metoprolol Tartrate (Lopressor) 1 mg IV NOW STA Stop: 09/30/19 14:28 Last Admin: 09/30/19 14:35 Dose: 1 mg Documented by: [id number] Metoprolol Tartrate (Lopressor) 2.5 mg IV NOW STA Stop: 09/30/19 15:43 Last Admin: 09/30/19 16:06 Dose: 2.5 mg Documented by: [id number] Metoprolol Tartrate (Lopressor) 2.5 mg IV NOW STA Stop: 09/30/19 20:40 Last Admin: 09/30/19 20:48 Dose: 2.5 mg Documented by: [id number] Metoprolol Tartrate (Lopressor) Confirm Administered Dose 5 mg IV .STK-MED ONE Stop: 09/30/19 20:45 Last Admin: 09/30/19 20:49 Dose: Not Given Documented by: [id number] Metoprolol Tartrate (Lopressor) 5 mg IV NOW Stop: 10/01/19 07:34 Last Admin: 10/01/19 08:16 Dose: 2.5 mg Documented by: [id number] Metoprolol Tartrate (Lopressor) 12.5 mg PO ONE ONE Stop: 10/02/19 09:12 Last Admin: 10/02/19 11:08 Dose: 12.5 mg Documented by: [id number] Miscellaneous (Order Awaiting Action) 1 ea N/A QS [facility] Stop: 10/30/19 00:00 Last Admin: 10/01/19 08:33 Dose: Not Given Documented by: [id number] Admin: 09/30/19 23:24 Dose: Not Given Documented by: [id number] Admin: 09/30/19 16:07 Dose: Not Given Documented by: [id number] Admin: 09/30/19 11:15 Dose: Not Given Documented by: [id number] Admin: 09/30/19 00:06 Dose: Not Given Documented by: [id number] Morphine Sulfate (Morphine Sulfate) 2 mg IV NOW STA Stop: 09/30/19 03:47 Last Admin: 09/30/19 03:56 Dose: 2 mg Documented by: [id number] Nitroglycerin (Nitrostat) 0.4 mg SL NOW STA Stop: 09/30/19 03:18 Last Admin: 09/30/19 03:27 Dose: Not Given Documented by: [id number] Polyethylene Glycol (Miralax Powder Packet) Confirm Administered Dose 17 gm .ROUTE .STK-MED ONE Stop: 10/03/19 09:16 Last Admin: 10/03/19 09:17 Dose: Not Given Documented by: [id number] Potassium Chloride (Klor-Con M20) 40 meq PO NOW STA Stop: 10/02/19 10:33 Last Admin: 10/02/19 11:48 Dose: 40 meq Documented by: [id number] Critical Care Time I have personally spent greater than 30 minutes of critical care time in the direct management of this patient. This includes bedside care, interpretation of diagnostic studies, and testing, discussion with consultants, patient, and family members, and other required patient management activities. This 30 minutes is in excess of all separately billable procedures. Medical Decision Making Differential Diagnosis Differential diagnoses includes but is not limited to pneumonia, bronchitis, COPD/Asthma exacerbation, pneumothorax, pulmonary embolism, congestive heart failure, acute coronary syndrome Medical Records Attestation: I reviewed the patient's medical records. Home Medications Current Medication List: was personally reviewed by me Laboratory Data Attestation: I reviewed the patient's lab results. Result diagrams: 10/03/19 06:10 10/03/19 06:10 Lab Results 09/29/19 09/29/19 09/29/19 Range/Units 18:39 19:10 19:10 WBC (4.8-10.8) K/uL RBC (4.2-5.4) M/uL Hgb (12.0-16.0) g/dL Hct (37-47) % MCV (80-100) fL MCH (25-34) pg MCHC (32-36) g/dL RDW Std Deviation (36.4-46.3) fL RDW Coeff of Nayely (11.5-14.5) % Plt Count (130-400) K/uL Immature Gran % (Auto) % Neut % (Auto) % Lymph % (Auto) % [place] % (Auto) % Eos % (Auto) % Baso % (Auto) % Immature Gran # (Auto) (0.00-0.02) K/uL Neut # (Auto) (1.4-6.5) K/uL Lymph # (Auto) (1.2-3.4) K/uL [place] # (Auto) (0.11-0.59) K/uL Eos # (Auto) (0-0.5) K/uL Baso # (Auto) (0-0.2) K/uL Platelet Estimate (Normal) PT Cancelled INR Cancelled APTT (21.0-31.0) Seconds PTT Ratio Sodium 143 (136-145) mmol/L Potassium 4.1 (3.5-5.1) mmol/L Chloride 104 (98-107) mmol/L Carbon Dioxide 39 H (21-32) mmol/L Anion Gap -1.0 L (3-11) BUN 21 H (7-18) mg/dl Creatinine 0.99 (0.6-1.2) mg/dl Est Cr Clr Drug Dosing 69.3 ml/min Est GFR ( Amer) 64.6 Est GFR (Non-Af Amer) 55.7 BUN/Creatinine Ratio 21.2 H (10-20) Glucose 104 H (70-99) mg/dl Calcium 9.0 (8.5-10.1) mg/dl Total Bilirubin 0.6 (0.2-1) mg/dl AST 23 (15-37) U/L ALT 33 (12-78) U/L Alkaline Phosphatase 98 (45-117) U/L Total Creatine Kinase 52 (26-192) U/L Troponin I 0.040 (0-0.045) ng/ml NT-Pro-B Natriuret Pep 2478 H (0-900) pg/ml Total Protein 6.7 (6.4-8.2) gm/dl Albumin 2.7 L (3.4-5.0) gm/dl Globulin 4.0 (2.5-4.0) gm/dl Albumin/Globulin Ratio 0.7 L (0.9-2) TSH 1.280 (0.300-4.500) uIu/ml Urine Color Urine Appearance (Clear) Urine pH (4.5-7.5) Ur Specific Hanna (1.000-1.030) Urine Protein (Negative) Urine Glucose (UA) (Negative) Urine Ketones (Negative) Urine Blood (Negative) Urine Nitrite (Negative) Urine Bilirubin (Negative) Urine Urobilinogen (Negative) Ur Leukocyte Esterase (Negative) Urine WBC (Auto) (0-5) /hpf Urine RBC (Auto) (0-4) /hpf U Hyaline Cast (Auto) (0-5) /lpf U Epithel Cells (Auto) (0-5) /lpf Urine Bacteria (Auto) (Negative) Influenza Type A (PCR) Neg for Influ A (Neg) Influenza Type B (PCR) Neg for Influ B (Neg) 09/29/19 09/29/19 09/29/19 Range/Units 19:10 20:20 21:16 WBC 4.27 L (4.8-10.8) K/uL RBC 5.49 H (4.2-5.4) M/uL Hgb 13.5 (12.0-16.0) g/dL Hct 44.5 (37-47) % MCV 81.1 (80-100) fL MCH 24.6 L (25-34) pg MCHC 30.3 L (32-36) g/dL RDW Std Deviation 68.3 H (36.4-46.3) fL RDW Coeff of Nayely 22.9 H (11.5-14.5) % Plt Count 122 L (130-400) K/uL Immature Gran % (Auto) 0.2 % Neut % (Auto) 56.5 % Lymph % (Auto) 26.0 % [place] % (Auto) 15.9 % Eos % (Auto) 1.2 % Baso % (Auto) 0.2 % Immature Gran # (Auto) 0.01 (0.00-0.02) K/uL Neut # (Auto) 2.41 (1.4-6.5) K/uL Lymph # (Auto) 1.11 L (1.2-3.4) K/uL [place] # (Auto) 0.68 H (0.11-0.59) K/uL Eos # (Auto) 0.05 (0-0.5) K/uL Baso # (Auto) 0.01 (0-0.2) K/uL Platelet Estimate Decreased L (Normal) PT 11.4 INR 1.1 APTT 27.5 (21.0-31.0) Seconds PTT Ratio 1.0 Sodium (136-145) mmol/L Potassium (3.5-5.1) mmol/L Chloride (98-107) mmol/L Carbon Dioxide (21-32) mmol/L Anion Gap (3-11) BUN (7-18) mg/dl Creatinine (0.6-1.2) mg/dl Est Cr Clr Drug Dosing ml/min Est GFR ( Amer) Est GFR (Non-Af Amer) BUN/Creatinine Ratio (10-20) Glucose (70-99) mg/dl Calcium (8.5-10.1) mg/dl Total Bilirubin (0.2-1) mg/dl AST (15-37) U/L ALT (12-78) U/L Alkaline Phosphatase (45-117) U/L Total Creatine Kinase (26-192) U/L Troponin I (0-0.045) ng/ml NT-Pro-B Natriuret Pep (0-900) pg/ml Total Protein (6.4-8.2) gm/dl Albumin (3.4-5.0) gm/dl Globulin (2.5-4.0) gm/dl Albumin/Globulin Ratio (0.9-2) TSH (0.300-4.500) uIu/ml Urine Color Yellow Urine Appearance Cloudy A (Clear) Urine pH 5.5 (4.5-7.5) Ur Specific Hanna 1.014 (1.000-1.030) Urine Protein 1+ H (Negative) Urine Glucose (UA) Negative (Negative) Urine Ketones Negative (Negative) Urine Blood Trace H (Negative) Urine Nitrite Positive A (Negative) Urine Bilirubin Negative (Negative) Urine Urobilinogen Negative (Negative) Ur Leukocyte Esterase 2+ H (Negative) Urine WBC (Auto) >30 H (0-5) /hpf Urine RBC (Auto) 0-4 (0-4) /hpf U Hyaline Cast (Auto) 10-30 H (0-5) /lpf U Epithel Cells (Auto) 5-10 H (0-5) /lpf Urine Bacteria (Auto) Negative (Negative) Influenza Type A (PCR) (Neg) Influenza Type B (PCR) (Neg) Imaging Data Radiologist's Impression: Radiology results as stated below per my review and the radiologist's interpretation: CT head/brain wo con CLINICAL HISTORY: 74 years-old Female presenting with Pt c/o AMS, hx of skull fx. TECHNIQUE: Multidetector CT imaging of the head was performed without the use of intravenous contrast. IV contrast: None. One or more dose lowering techniques were used consistent with the principles of ALARA (as low as reasonably ac hievable), including automatic exposure control, mA or kV adjustment to individual patient size, and/or use of iterative reconstruction. COMPARISON: 03/17/2018. CT DOSE (mGy.cm): The estimated cumulative dose is 906.34 mGycm. FINDINGS: Collection Analyst topogram: Unremarkable. Ventricles and sulci normal in size. No hemorrhage. Periventricular and subcortical white matter hypoattenuation, nonspecific but likely indicative of chronic small vessel ischemic change. Limited cortical infarct in the left fron pa vertex. This is new from prior and may be acute or subacute given that regional sulcal effacement. No midline shift. No extra-axial fluid collection. Mild mucosal thickening in the ethmoid are cells and right sphenoid sinus. Calvarium intact. IMPRESSION: 1. Suspected acute or subacute infarct in the left frontal lobe near the vertex. This is new from prior. Brain MR could confirm this finding and evaluate acuity if clinically necessary. Underlying lesion considered unlikely. 2. Chronic small vessel ischemic change. The report will be called/faxed according to standard departmental protocol for a critical finding. ACT 112: Negative or not required by law. Electronically signed by: Sammy Armstrong M.D. 09/29/2019 7:47 PM XR chest 1V portable CLINICAL HISTORY: 74 years-old Female presenting with weakness. TECHNIQUE: Portable upright AP view of the chest was obtained. COMPARISON: 06/11/2018. FINDINGS: Median sternotomy wires and mediastinal surgical clips noted. Atherosclerosis of the aortic arch. Cardiac silhouette moderately enlarged. Pulmonary vascular prominence and significant interstitial prominence. Bandlike opacity in the right midlung. Lung volumes are slightly increased. No other focal lung opacity. No large effusion or pneumothorax. Osseous structures normal. IMPRESSION: 1. Cardiomegaly with volume overload and significant congestive change. Early/developing pulmonary edema is difficult to exclude. 2. Elevated lung volume suggest underlying emphysema. ACT 112: Negative or not required by law. Electronically signed by: Sammy Armstrong M.D. 09/29/2019 7:22 PM ECG Data Attestation: I personally reviewed and interpreted this ECG as follows: Indication: + SOB/dyspnea Rate (beats per minute): 97 Rhythm: + atrial flutter ECG ST segments: + T-wave inversions (Lateral) ECG Findings: + Other (QTc of 495) Blood Pressure Blood Pressure Findings: Elevated blood pressure Blood Pressure Disposition: further management by hospitalist MDM Narrative This is a 74-year-old female who presents emergency department with hypoxia. Upon arrival to the emergency department patient was placed on BiPAP. She was given hour-long breathing treatment. She was started on broad-spectrum antibiotics. I did discuss the case with the hospitalist service who did agree to meet the patient. Impression & Plan Hypoxia, Stroke, Lung mass Discharge Plan Visit Data *Final* Discharge Date/Time: 09/29/19 21:42 Chief Complaint: Respiratory Distress Stated Complaint: RESP. DISTRESS ED Provider: Jeff Shultz Discharge Problem: Hypoxia, Stroke, Lung mass Patient Disposition: Admitted As Inpatient Discharge Instructions Interventions: ED Discharge Assessment Last Done: 09/29/19 21:42 Discharge Problem: Stroke Qualifiers: CVA mechanism: unspecified Qualified Code(s): I63.9 - Cerebral infarction, unspecified The scribe's documentation has been prepared under my direction and personally reviewed by me in its entirety. I confirm that the note above accurately reflects all work, treatment, procedures, and medical decision making performed by me.
[2019-09-30] MEDS ORDERED: NITROGLYCERIN SL 0.4 MG/TAB TAB SL STA (03:17)
[2019-09-30] MEDS ORDERED: MoRPHine SULFATE 2 MG/ML CARP IV STA (03:46)
[2019-09-30] MEDS ORDERED: ASPIRIN CHEW 324 MG PO STA (03:58)
[2019-09-30 03:59] LABS: Hematocrit (blood only) 44.5 % (37-47); Hemoglobin 13.5 g/dL (12.0-16.0)
[2019-09-30 04:08] LABS: INR 1.1 (0.9-1.1); Partial Thromboplastin Time 26.6 Seconds (21.0-31.0); Prothrombin Time 11.6 Seconds (9.0-12.0)
[2019-09-30 04:16] LABS: BUN Creatinine Ratio 20.4 (10-20); Calcium 9.1 mg/dl (8.5-10.1); Est GFR (African American) 57.5; Est GFR (Non-African American) 49.6; Potassium 3.7 mmol/L (3.5-5.1)
[2019-09-30 04:20] LABS: Troponin I 0.039 ng/ml (0-0.045)
--- NOTE | 2019-09-30 04:35 | Communication Note ---
Date of Service: September 30, 2019 Pt with the development of sudden chest pain at ~0330, 5/10, center of chest, with unchanged shortness of breath. She was breathing on 4L NC (previously on BiPaP, removed for concern of aspiration with cough/phlegm) with sats ~90%. EKG showed T wave inversions in V2-V6, new from prior which developed ST depressions in V2, V3 and 1mm in I. Nitro SL, morphine 2mg, ASA 325 ordered, troponin/coags/H&H/BMP ordered. Nitro held for SBP 90s. Pt reports she had a cath before and understood the risks/benefits; she reported that she would not/does not want a cath but is OK with management with medicines. Pt and family had expressed a desire to avoid invasive procedures and move towards palliative care on admission, family was contacted by phone. During conversation pt's ST depressions resolved with medical tx as mentioned. Per shared decisionmaking conversation heart alert deferred and medical therapy continued. Orders for morphine 2mg Q2H PRN for pain and nitro if SBP >100 placed.
[2019-09-30] MEDS ORDERED: NITROGLYCERIN SL 0.4 MG/TAB TAB SL PRN (04:49)
[2019-09-30] MEDS ORDERED: MoRPHine SULFATE 2 MG/ML CARP IV PRN (04:49)
--- NOTE | 2019-09-30 05:50 | Billing Data ---
Date of Service September 29, 2019 Coding Level of Care Code 35737 Initial Inpt Care Lvl 3
[2019-09-30] MEDS: LEVOTHYROXINE SODIUM 112 MCG TABLET PO SCH (06:03)
[2019-09-30] MEDS ORDERED: FUROSEMIDE 40 MG in SYRINGE 0 ML IV SCH (09:00)
[2019-09-30] MEDS ORDERED: FEBUXOSTAT 40 MG PO SCH (09:00)
[2019-09-30] MEDS: SPIRONOLACTONE 25 MG TAB PO SCH (11:15)
[2019-09-30] MEDS: ASPIRIN 81 MG ECTAB PO SCH (11:16)
[2019-09-30] MEDS: ANASTROZOLE 1 MG TAB PO SCH (11:16)
[2019-09-30] MEDS: FLUTICASONE/VILANTEROL 100/25MCG 14 PUFFS/INHALER INH SCH (11:16)
[2019-09-30] MEDS: PREGABALIN 150 MG CAP PO SCH ×2 (11:16→20:42)
[2019-09-30] MEDS: SERTRALINE HCL 50 MG TABLET PO SCH (11:16)
[2019-09-30] MEDS: DOCUSATE SODIUM 100 MG CAP PO SCH (11:16)
[2019-09-30] MEDS: METOPROLOL TARTRATE 25 MG TAB PO SCH ×2 (11:16→20:42)
[2019-09-30] MEDS: POTASSIUM CHLORIDE 20 MEQ TABCR PO SCH (11:16)
[2019-09-30] MEDS: PANTOprazole 40 MG TAB PO SCH (11:16)
[2019-09-30] MEDS ORDERED: XOPENEX/ATROVENT 0.63mg/0.5MG NEB COMBO NEB SCH (11:30)
--- NOTE | 2019-09-30 11:35 | Electrocardiogram Report ---
Test Reason : Blood Pressure : / mmHG Vent. Rate : 097 BPM Atrial Rate : 241 BPM P-R Int : 000 ms QRS Dur : 086 ms QT Int : 390 ms P-R-T Axes : 000 061 214 degrees QTc Int : 495 ms Atrial flutter with variable A-V block Abnormal ECG When compared with ECG of 11-JUN-2018 11:48, T wave inversion now evident in Inferior leads T wave inversion now evident in Anterolateral leads Confirmed by Tomer Bui ([id number]) on 09/30/2019 11:34:46 AM Referred By: REFERRED SELF Confirmed By:Tomer Bui
--- NOTE | 2019-09-30 11:38 | Hospitalist Progress Note ---
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 Acute hypoxic, hypercapnic respiratory failure 2/2 AOC CHF exacerbation -Pt currently requiring 6L oxymask, hypotensive, tachycardic to the 120s, switched to bipap -VBG with ph of 7.33, noted CO2 level of 69 Chest x-ray shows cardiomegaly with volume overload and significant congestive change. Atrial Fibrillation with RVR -Pt with HR as high as the 120s -Noted telemetry monitoring showed she is currently in atrial fibrillation. -will check a mag and phos, keep K>4, mag >2 -continue home metoprolol 12.5mg BID -Given hypotension, one additional dose of Lopressor 1mg IV given. Will continue to give PRN doses to achieve rate control. Continue warfarin 6 mg nightly with goal INR less than 1.5 per outside records. Acute on chronic CHF exacerbation, history of CAD BNP 2478, x-ray shows congestive overload Last echo 2018, EF 55 to 60% Lasix 40 mg IV given in ED. Will hold Lasix given pt currently hypotensive. Continue metoprolol 12.5 mg p.o. twice daily Continue rosuvastatin 10 mg p.o. nightly -continue spironolactone 25mg Nitro 0.4 sublingual as needed Subacute stroke CT head shows left frontal acute versus subacute stroke. -Not TPA candidate -On warfarin and aspirin therapy. Confusion suspected secondary to hypercapnia vs. metabolic encephalopathy vs. brain mets vs. new stroke vs. some combination. MRI brain imaging a strong consideration given History of breast and ?lung cancer, mets x4 to brain Per review of chart records, had lumpectomy with radiation for breast cancer. -Lung nodule possibly mets, in addition to brain mets. -currently on Armidex 1 mg p.o. every morning Patient and family report not pursuing chemotherapy, surgery, or curative treatment at this time See goals of care discussion below Goals of care Per Dr. Weathers: "Her son Tayo and daughter Valentine are present at bedside. They reported they had not had goals of care discussions previously, but feel that their mother's clinical course was worsening and that she was not tolerating rehab well and was unlikely to return to her baseline level of function. She is not currently a candidate for chemotherapy. Family, and they feel that they would not want chemotherapy, surgery, or radiation. He reports he would want full medical treatment including antibiotics, intubation for declining respiratory status if necessary and possible temporary, but would not want CPR or intubation in the setting of cardiac arrest. Discussed palliative care and hospice potential, they feel that potential return home with hospice services are consistent with goals of care at this time but comfort measures only. They would like to speak with palliative care during admission. DNR/DNI status placed consistent with above discussion. Palliative care consult placed." CKD Cr currently within normal limits Hypertension -currently with HYPOtension has home Spironolactone 25 mg p.o. every morning Beta-miladys as above Depression Continue sertraline 50 mg every morning GERD Continue Protonix 40 mg p.o. every morning History of gout Continue Uloric 40 mg p.o. every morning Hypothyroidism Continue Synthroid 112 mcg p.o. daily TSH within normal limits on admission DVT prophylaxis: Warfarin as above Diet: Heart healthy, sodium restriction CODE STATUS: DNR/DNI. Please see HPI and above for goals of care discussion. (2) Acute on chronic diastolic (congestive) heart failure: (3) Anticoagulated on warfarin: (4) Hypertension: (5) Chronic kidney disease, stage 4 (severe): (6) Hypoxia: (7) Hx pulmonary embolism: (8) Hypothyroid: (9) CAD (coronary artery disease): (10) DVT prophylaxis: Admission and Anticipated Discharge Date Admission Date: September 29, 2019 Supervising Physician Co-Signing Physician Notes Resident Physician Supervision Note: I independently interviewed and examined the patient and verified the pearl histor y and physical, reviewed labs and image studies, discussed the case with the resident Dr. Delgado and agree with the findings and care plan. Subjective Pt seen this AM, arousable but easily falls back asleep. No family at bedside. Review of Systems Review of Systems: Unobtainable due to reduced consciousness Physical Exam Physical Exam: General: Pt sleeping, arousable with verbal stimulation but easily falls back asleep. Obese. Skin: No noted rashes or bruises Neuro: Arousable by verbal stimulation but easily falls back asleep. HEENT: NC/AT, oropharynx open while asleep. Chest: Nontender to palpation. CV: RRR, Normal s1, s2. No murmurs appreciated Resp: Breath sounds clear on front with scattered wheezes and with fine crackles appreciated on sides. Abdomen: Soft, nontender. No guarding. No organomegaly appreciated. Extremities: Trace edema in lower extremities bilaterally. Results & Data ([facility]) Vital Signs (Past 12 Hours) Vital Signs Temp Pulse Pulse Pulse Resp BP Pulse Ox 09/30/19 11:02 36.7 C 125 H 22 94/60 L 91 09/30/19 08:00 100 H 09/30/19 07:47 37.1 C 105 H 22 90/63 L 95 09/30/19 04:12 36.7 C 100 H 20 99/67 L 91 09/30/19 03:59 98 H 21 97 09/30/19 03:36 98/60 L 09/30/19 03:28 107/67 93 09/30/19 03:18 37.2 C 101 H 19 88/50 L 90 Resident Activity Tracking Resident Involvement: Resident Care Provided Care Provided: Adult Hospital Medicine
--- NOTE | 2019-09-30 11:48 | Electrocardiogram Report ---
Test Reason : Blood Pressure : / mmHG Vent. Rate : 099 BPM Atrial Rate : 099 BPM P-R Int : 214 ms QRS Dur : 090 ms QT Int : 418 ms P-R-T Axes : 081 058 222 degrees QTc Int : 536 ms Atrial flutter Prolonged QT Abnormal ECG When compared with ECG of 29-SEP-2019 18:42, (unconfirmed) No significant change Confirmed by Tomer Bui ([id number]) on 09/30/2019 11:48:11 AM Referred By: REFERRED SELF Confirmed By:Tomer Bui
[2019-09-30] MEDS: LEVALBUTEROL HCL 0.63 MG/3 ML NEB NEB SCH ×3 (11:49→19:36)
[2019-09-30] MEDS: IPRATROPIUM BROMIDE NEB SOLN 0.02% 2.5 ML VIAL INH SCH ×3 (11:49→19:36)
--- NOTE | 2019-09-30 11:49 | Electrocardiogram Report ---
Test Reason : Blood Pressure : / mmHG Vent. Rate : 100 BPM Atrial Rate : 250 BPM P-R Int : 000 ms QRS Dur : 094 ms QT Int : 398 ms P-R-T Axes : 000 063 222 degrees QTc Int : 513 ms Atrial flutter with variable A-V block T-wave inversion in Inferolateral leads Prolonged QT Abnormal ECG When compared with ECG of 30-SEP-2019 03:20, (unconfirmed) No significant change Confirmed by Tomer Bui ([id number]) on 09/30/2019 11:49:20 AM Referred By: REFERRED SELF Confirmed By:Tomer Bui
[2019-09-30 11:58] LABS: Base Excess VBG 7.6 mEq/L; Oxygen Saturation VBG 71.9 %; pH VBG 7.33 (7.36-7.41)
[2019-09-30] MEDS ORDERED: METOPROLOL TARTRATE 1 MG/ML VIAL IV STA ×3 (14:27→20:39)
[2019-09-30] MEDS ORDERED: ACETAMINOPHEN 500 MG TAB PO PRN (15:53)
[2019-09-30] MEDS: ACETAMINOPHEN 1,000 MG/100 ML VIAL IV PRN (16:05)
[2019-09-30 17:00] LABS: Magnesium 1.7 mg/dl (1.8-2.4); Phosphorus 3.4 mg/dl (2.5-4.9)
[2019-09-30] MEDS ORDERED: FUROSEMIDE 20 MG in SYRINGE 0 ML IV ONE (17:00)
[2019-09-30] MEDS: CALCIUM 600MG + VIT D 400 IU TAB PO SCH (20:42)
[2019-09-30] MEDS: WARFARIN SOD 6 MG TAB PO SCH (20:42)
[2019-09-30] MEDS: ROSUVASTATIN CALCIUM 10 MG TAB PO SCH (20:42)
[2019-09-30] MEDS: ACETAMINOPHEN 325 MG TAB PO SCH (20:42)
[2019-09-30] MEDS ORDERED: METOPROLOL TARTRATE 1 MG/ML VIAL IV ONE (20:44)
[2019-10-01] MEDS: LEVALBUTEROL HCL 0.63 MG/3 ML NEB NEB SCH ×4 (00:47→19:06)
[2019-10-01] MEDS: IPRATROPIUM BROMIDE NEB SOLN 0.02% 2.5 ML VIAL INH SCH ×4 (00:47→19:06)
[2019-10-01] MEDS: LEVOTHYROXINE SODIUM 112 MCG TABLET PO SCH (05:48)
[2019-10-01] MEDS ORDERED: MAGNESIUM SULFATE / D5W 1 GM/100 ML BAG IV ONE (07:08)
[2019-10-01 07:21] LABS: Mean Corpuscular Hgb Conc 30.6 g/dL (32-36); Nucleated RBC # (auto) 0.02 K/uL (0-0); Nucleated RBC % (auto) 0.3 %
[2019-10-01 07:30] LABS: INR 1.3 (0.9-1.1); Prothrombin Time 13.3 Seconds (9.0-12.0)
[2019-10-01] MEDS ORDERED: METOPROLOL TARTRATE 1 MG/ML VIAL IV STA (07:33)
[2019-10-01 07:34] LABS: Hematocrit (blood only) 42.5 % (37-47); Mean Corpuscular Hemoglobin 24.4 pg (25-34); Mean Corpuscular Volume 79.9 fL (80-100); RDW Coefficient of Variation 23.1 % (11.5-14.5); RDW Standard Deviation 67.5 fL (36.4-46.3); Red Blood Count 5.32 M/uL (4.2-5.4); White Blood Count 4.91 K/uL (4.8-10.8)
[2019-10-01 07:56] LABS: BUN Creatinine Ratio 25.4 (10-20); Calcium 9.4 mg/dl (8.5-10.1); Creatinine Clr Calc Pharmacy 59.1 ml/min; Est GFR (African American) 58.2; Est GFR (Non-African American) 50.2; Magnesium 1.8 mg/dl (1.8-2.4); Potassium 3.6 mmol/L (3.5-5.1)
--- NOTE | 2019-10-01 08:01 | Hospitalist Progress Note ---
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 Acute hypoxic, hypercapnic respiratory failure -Pt required 6L oxymask , hypotensive, tachycardic to the 120s, switched to bipap -VBG with pH of 7.33, noted CO2 level of 69 Chest x-ray shows cardiomegaly with volume overload and significant congestive change. -likely caused by combination retention of CO2, atrial fibrillation/a flutter, Hx of COPD -continue bipap -continue xopenex and Atrovent breathing treatments Atrial Fibrillation with RVR -Pt with HR as high as the 120s -Noted telemetry monitoring showed she flips between atrial fibrillation and atrial flutter -keep K>4, mag >2, replenish as needed -continue home metoprolol 12.5mg BID, with PRN Lopressor doses. Will not increase home dosing due to hypotension. Continue warfarin 6 mg nightly with goal INR less than 1.5 per outside records due to potential for brain bleeds. Acute on chronic CHF exacerbation, history of CAD BNP 2478, x-ray shows congestive overload Last echo 2017, EF 55 to 60% Lasix 40 mg IV given in ED. Will hold Lasix given pt currently hypotensive. Continue metoprolol 12.5 mg p.o. twice daily Continue rosuvastatin 10 mg p.o. nightly -hold spironolactone 25mg given hypotension hold Nitro 0.4 sublingual given hypotension JONATHON/OHS -Continue bipap Subacute stroke CT head shows left frontal acute versus subacute stroke. -Not TPA candidate -On warfarin and aspirin therapy. Confusion suspected secondary to hypercapnia vs. metabolic encephalopathy vs. brain mets vs. new stroke vs. some combination. History of breast and ?lung cancer, mets x4 to brain Per review of chart records, had lumpectomy with radiation for breast cancer. -Lung nodule possibly mets, in addition to brain mets. -currently on Armidex 1 mg p.o. every morning Patient and family report not pursuing chemotherapy, surgery, or curative treatment at this time -Pallaitive consult appreciated--family desirous of hospice referral. CKD Cr currently within normal limits Hypertension -currently with HYPOtension hold home Spironolactone 25 mg Beta-miladys as above Depression Continue sertraline 50 mg every morning GERD Continue Protonix 40 mg p.o. every morning History of gout Continue Uloric 40 mg p.o. every morning Hypothyroidism Continue Synthroid 112 mcg p.o. daily TSH within normal limits on admission DVT prophylaxis: Warfarin as above Diet: Heart healthy, sodium restriction CODE STATUS: DNR/DNI. Admission and Anticipated Discharge Date Admission Date: September 29, 2019 Supervising Physician Co-Signing Physician Notes Resident Physician Supervision Note: I independently interviewed and examined the patient and verified the pearl history and physical, reviewed labs and image studies, discussed the case with the resident Dr. Delgado and agree with the findings and care plan. Subjective Pt seen this AM. This AM was able to communicate that she felt better than yesterday through bipap mask however would quickly go back to mumbling. Had one extra dose of Lopressor 2.5mg overnight. Review of Systems Review of Systems: Unobtainable due to cognitive status Physical Exam Physical Exam: General: Pt sleeping, arousable with verbal stimulation but easily falls back asleep. Obese. Skin: Bruise noted on right face, on arms Neuro: Arousable by verbal stimulation but easily falls back to mumbling HEENT: oropharynx open Chest: Nontender to palpation. CV: Irregular rate and rhythm Resp: Breath sounds clear on front with scattered wheezes Abdomen: Soft, nontender. No guarding. No organomegaly appreciated. Extremities:+ edema in lower extremities bilaterally. Results & Data ([facility]) Vital Signs (Past 12 Hours) Vital Signs Temp Pulse Pulse Pulse Resp BP BP 10/01/19 07:20 122 H 122 H 21 10/01/19 07:17 36.7 C 123 H 98/65 L 10/01/19 03:50 37 C 123 H 22 119/72 10/01/19 02:38 124 H 21 10/01/19 00:49 123 H 21 10/01/19 00:01 122 H 09/30/19 23:16 36.8 C 122 H 16 117/69 09/30/19 21:13 120 H 20 09/30/19 20:56 121 H 88/53 L 09/30/19 20:54 118 H 94/59 L 09/30/19 20:52 120 H 104/73 09/30/19 20:51 122 H 94/60 L Pulse Ox 10/01/19 07:20 94 10/01/19 07:17 94 10/01/19 03:50 94 10/01/19 02:38 98 10/01/19 00:49 95 10/01/19 00:01 09/30/19 23:16 93 09/30/19 21:13 94 09/30/19 20:56 09/30/19 20:54 09/30/19 20:52 09/30/19 20:51 Resident Activity Tracking Resident Involvement: Resident Care Provided Care Provided: Adult Hospital Medicine
[2019-10-01 08:13] LABS: Basophils # (auto) 0.02 K/uL (0-0.2); Basophils % (auto) 0.4 %; Eosinophils # (auto) 0.07 K/uL (0-0.5); Eosinophils % (auto) 1.4 %; Giant Platelets 1+; Hypochromasia Present; Immature Granulocytes # (auto) 0.02 K/uL (0.00-0.02); Immature Granulocytes % (auto) 0.4 %; Lymphocytes # (auto) 0.89 K/uL (1.2-3.4); Lymphocytes % (auto) 18.1 %; Microcytosis Present; Monocytes # (auto) 0.57 K/uL (0.11-0.59); Monocytes % (auto) 11.6 %; Neutrophils # (auto) 3.34 K/uL (1.4-6.5); Neutrophils % (auto) 68.1 %; Platelet Count 131 K/uL (130-400); Platelet Estimate Decreased (Normal); Polychromasia 1+
[2019-10-01] MEDS: [UNRECOGNIZED DRUG - REMARK] SCH (08:33)
[2019-10-01] MEDS: METOPROLOL TARTRATE 25 MG TAB PO SCH ×2 (08:33→21:28)
[2019-10-01] MEDS: DOCUSATE SODIUM 100 MG CAP PO SCH (08:35)
[2019-10-01] MEDS: MAGNESIUM OXIDE 400 MG TAB PO SCH ×3 (08:35→21:26)
[2019-10-01] MEDS: ANASTROZOLE 1 MG TAB PO SCH (08:36)
[2019-10-01] MEDS: ASPIRIN 81 MG ECTAB PO SCH (08:36)
[2019-10-01] MEDS: SERTRALINE HCL 50 MG TABLET PO SCH (08:36)
[2019-10-01] MEDS: PANTOprazole 40 MG TAB PO SCH (08:37)
[2019-10-01] MEDS: FLUTICASONE/VILANTEROL 100/25MCG 14 PUFFS/INHALER INH SCH (08:37)
[2019-10-01] MEDS: POTASSIUM CHLORIDE 20 MEQ TABCR PO SCH (08:38)
[2019-10-01] MEDS: PREGABALIN 150 MG CAP PO SCH ×2 (10:00→21:29)
--- NOTE | 2019-10-01 16:25 | Palliative Care Consultation ---
Date of Consultation October 01, 2019 Assessment & Plan (1) Goals of care, counseling/discussion: Patient is a 74-year-old female with a prior history of breast cancer diagnosed in 2016, CKD stage IV, hypertension, chronic CHF, GERD, hypothyroid, CAD, COPD and diabetes who fell out of her motorized wheelchair August 31 and had a witnessed seizure. Head CT showed a left frontal lobe brain mass and 2 occipital masses-patient underwent gamma knife on 09/09. CT scan also showed a right upper lobe lung mass. Patient was then discharged to rehab at [facility]. On 09/29 patient was noted to be hypoxic, had altered mental status and increased shortness of breath-she was sent to the emergency room where she was noted to have fluid overload. Head CT showed an acute versus subacute left frontal CVA. Detailed history difficult to obtain from patient as she has word finding problems. Patient's speech can sometimes be fluid-when asking specific questions she can have difficulty coming up with the correct answer. When asked what month it was she said May-she immediately knew that was not correct, made several attempts to correctly answer, was unable to. Patient reassured regarding frustration with expressive aphasia. Patient reported that her son Tayo and her daughter Valentine are her medical decision makers. Contacted Valentine by phone, met with Tayo later this afternoon at bedside. -Goals of care-son and daughter agree that patient has overall been declining, their goal is for comfort care. Both son and daughter work and are unable to provide 24-hour care for patient-collaborated with case management regarding options for placement. Patient and family amenable to hospice referral. Patient's current CODE STATUS is DNR/DNI -Lung mass/brain mass-patient is status post gamma knife to 3 brain lesions- patient did not pursue any further treatment given her overall performance status. -Chronic CHF-patient on Aldactone, Lasix on hold due to hypotension, continue to gently diurese -Respiratory failure-requiring O2 and BiPAP nightly and PRN-improving -CAD-patient had an episode of chest pain on 09/30-patient refused aggressive work-up or cardiac cath, will continue with medical management -CKD stage IV-monitor BMPs -Hypothyroid-continue Synthroid -Diabetes-continue blood sugar control -COPD-continue inhalers and O2 Will continue to follow and assist patient and family with medical decision making. Collaborated with case management regarding patient and family's goals of care. (2) Secondary malignant neoplasm of brain: (3) Lung mass: (4) Acute respiratory failure with hypercapnia: (5) Acute on chronic diastolic (congestive) heart failure: (6) CAD (coronary artery disease): (7) Stroke: History of Present Illness Reason for Consultation: Address goals of care Requesting Physician: Dr. Sammy Headley Attending Physician: Margie Pratt MD History of Present Illness Patient is a 74-year-old female with a prior history of breast cancer diagnosed in 2015, CKD stage IV, hypertension, chronic CHF, GERD, hypothyroid, CAD, COPD and diabetes who fell out of her motorized wheelchair August 31 and had a witnessed seizure. Head CT showed a left frontal lobe brain mass and 2 occipital masses-patient underwent gamma knife on 09/09. CT scan also showed a right upper lobe lung mass. Patient was then discharged to rehab at [facility]. On 09/29 patient was noted to be hypoxic, had altered mental status and increased shortness of breath-she was sent to the emergency room where she was noted to have fluid overload. Head CT showed an acute versus subacute left frontal CVA. Detailed history difficult to obtain from patient as she has word finding problems. Patient's speech can sometimes be fluid-when asking specific questions she can have difficulty coming up with the correct answer. When asked what month it was she said May-she immediately knew that was not correct, made several attempts to correctly answer, was unable to. Patient reassured regarding frustration with expressive aphasia. Patient reported that her son Tayo and her daughter Valentine are her medical decision makers. Contacted Valentine by phone, met with Tayo later this afternoon at bedside. Allergies Allergy/AdvReac Type Severity Reaction Status Date / Time melatonin Allergy Severe RASH Verified 09/29/19 20:32 Penicillins Allergy Unknown UNLNOWN Verified 09/29/19 20:32 Home Medications Home Medications Medication Instructions Recorded Confirmed Type Calcium 600 + D(3) 1 tab PO HS 05/19/18 09/29/19 History acetaminophen [Tylenol] 650 mg PO HS 05/19/18 09/29/19 History anastrozole [Arimidex] 1 mg PO QAM 05/19/18 09/29/19 History aspirin [Aspirin Low Dose] 81 mg PO QAM 05/19/18 09/29/19 History diclofenac sodium [Voltaren] 1 applic TOPICAL QID PRN 05/19/18 09/29/19 History febuxostat [Uloric] 40 mg PO QAM 05/19/18 09/29/19 History levothyroxine [Synthroid] 112 mcg PO QAM 05/19/18 09/29/19 History pantoprazole [Protonix] 40 mg PO QAM 05/19/18 09/29/19 History rosuvastatin [Crestor] 10 mg PO HS 05/19/18 09/29/19 History spironolactone 25 mg PO QAM 05/19/18 09/29/19 History metoprolol tartrate 12.5 mg PO BID #0 tab 06/17/18 09/29/19 Rx docusate sodium 100 mg capsule 100 mg PO QAM cap 05/08/19 09/29/19 History fluticasone furoate 100 1 puffs INHALATION DAILY ea 05/08/19 09/29/19 History mcg-vilanterol 25 mcg/dose inhalation powder furosemide 40 mg tablet 40 mg PO QAM tab 05/08/19 09/29/19 History nitroglycerin 400 mcg/spray 400 mcg SL UD PRN gm 05/08/19 09/29/19 History translingual potassium chloride 20 mEq 20 meq PO QAM #90 tab 05/08/19 09/29/19 History tablet,extended release pregabalin 150 mg capsule 150 mg PO BID cap 05/08/19 09/29/19 History sertraline 100 mg tablet 50 mg PO QAM tab 05/08/19 09/29/19 History warfarin 6 mg tablet 6 mg PO HS tab 05/08/19 09/29/19 History ergocalciferol (vitamin D2) 1,250 50,000 unit PO MONTHLY #12 cap 06/22/19 09/29/19 Rx mcg (50,000 unit) capsule furosemide [Lasix] 20 mg PO HS 09/29/19 09/29/19 History Patient History Medical History Acute kidney failure (Resolved) Atrial fibrillation CAD (coronary artery disease) Chronic hypercapnic respiratory failure (Chronic) Chronic kidney disease, stage 4 (severe) (Chronic) Congestive heart failure COPD (chronic obstructive pulmonary disease) Diabetes mellitus with neuropathy Diabetes mellitus, type 2 Diastolic CHF (Chronic) GERD (gastroesophageal reflux disease) Gout HX: breast cancer Hypertension (Chronic) Hypothyroid On home oxygen therapy JONATHON (obstructive sleep apnea) (Chronic) Pulmonary edema Tobacco use Vitamin D deficiency (Chronic) Surgical History History of coronary artery bypass graft Family History Other No pertinent family history Social History Preferred Language: Cymraes Communication Ability: Unable Engagement Liaison Required: No Beliefs That Will Affect Care: None Current Living Situation: Residential Current Living Situation Comment: Currently at [facility] for rehab Other Information That Helps Us Care for You: No Feels Safe at Home: Yes Safety Concerns: Feels Safe At This Time Smoking Status: Former smoker Smoking End Date: Patient quit smoking in 2017 ; Second Hand Exposure: Yes ; Hx Alcohol Use: No Hx Substance Use: No Results & Data Vital Signs (Past 12 Hours) Vital Signs Temp Pulse Pulse Pulse Resp BP BP 10/01/19 15:23 99.0 F 94 H 20 10/01/19 13:28 107 H 20 10/01/19 11:23 123 H 20 10/01/19 11:10 97.5 F L 120 H 24 86/53 L 10/01/19 08:16 126 H 105/68 10/01/19 07:20 122 H 122 H 21 10/01/19 07:17 98.1 F 123 H BP Pulse Ox 10/01/19 15:23 90/59 L 90 10/01/19 13:28 94 10/01/19 11:23 91 10/01/19 11:10 92 10/01/19 08:16 10/01/19 07:20 94 10/01/19 07:17 98/65 L 94 PG Care Time/CCT Total # of Minutes Spent Total Time Spent with Patient: Total time spent 90 minutes with greater than 50% of the time spent at bedside on 2 separate visits as well as speaking with patient's daughter by phone, and collaborating with case management Coding Level of Care Code 97417 Inpt Consult Level 3 Diagnoses Goals of care, counseling/discussion Z71.89 Secondary malignant neoplasm of brain C79.31 Lung mass R91.8 Acute respiratory failure with hypercapnia J96.02 Acute on chronic diastolic (congestive) heart failure I50.33 CAD (coronary artery disease) I25.10 Stroke I63.9 Time Spent (min) 90
[2019-10-01] MEDS: ROSUVASTATIN CALCIUM 10 MG TAB PO SCH (21:26)
[2019-10-01] MEDS: ACETAMINOPHEN 325 MG TAB PO SCH (21:26)
[2019-10-01] MEDS: WARFARIN SOD 6 MG TAB PO SCH (21:27)
[2019-10-01] MEDS: CALCIUM 600MG + VIT D 400 IU TAB PO SCH (21:28)
[2019-10-02] MEDS: IPRATROPIUM BROMIDE NEB SOLN 0.02% 2.5 ML VIAL INH SCH ×4 (01:11→19:33)
[2019-10-02] MEDS: LEVALBUTEROL HCL 0.63 MG/3 ML NEB NEB SCH ×4 (01:11→19:33)
[2019-10-02 06:52] LABS: Mean Corpuscular Hgb Conc 30.8 g/dL (32-36)
[2019-10-02 07:00] LABS: INR 1.3 (0.9-1.1); Prothrombin Time 12.8 Seconds (9.0-12.0)
[2019-10-02 07:02] LABS: Hematocrit (blood only) 41.6 % (37-47); Hemoglobin 12.8 g/dL (12.0-16.0); Mean Corpuscular Hemoglobin 24.3 pg (25-34); Mean Corpuscular Volume 79.1 fL (80-100); RDW Standard Deviation 66.5 fL (36.4-46.3); Red Blood Count 5.26 M/uL (4.2-5.4); White Blood Count 3.97 K/uL (4.8-10.8)
[2019-10-02 07:19] LABS: Anisocytosis Present; Basophils # (auto) 0.05 K/uL (0-0.2); Basophils % (auto) 1.3 %; Eosinophils # (auto) 0.06 K/uL (0-0.5); Eosinophils % (auto) 1.5 %; Giant Platelets 1+; Immature Granulocytes # (auto) 0.05 K/uL (0.00-0.02); Immature Granulocytes % (auto) 1.3 %; Lymphocytes % (auto) 25.2 %; Monocytes # (auto) 0.51 K/uL (0.11-0.59); Monocytes % (auto) 12.8 %; Neutrophils % (auto) 57.9 %; Platelet Count 136 K/uL (130-400); Polychromasia 1+
[2019-10-02 07:21] LABS: Calcium 8.9 mg/dl (8.5-10.1); Creatinine Clr Calc Pharmacy 47.9 ml/min; Est GFR (African American) 47.4; Est GFR (Non-African American) 40.9; Magnesium 1.9 mg/dl (1.8-2.4); Potassium 3.4 mmol/L (3.5-5.1)
[2019-10-02] MEDS: METOPROLOL TARTRATE 25 MG TAB PO SCH ×2 (08:39→20:33)
[2019-10-02] MEDS: POTASSIUM CHLORIDE 20 MEQ TABCR PO SCH (08:39)
[2019-10-02] MEDS: PREGABALIN 150 MG CAP PO SCH ×2 (08:39→21:06)
[2019-10-02] MEDS: DOCUSATE SODIUM 100 MG CAP PO SCH (08:39)
[2019-10-02] MEDS: FLUTICASONE/VILANTEROL 100/25MCG 14 PUFFS/INHALER INH SCH (08:39)
[2019-10-02] MEDS: ASPIRIN 81 MG ECTAB PO SCH (08:40)
[2019-10-02] MEDS: SERTRALINE HCL 50 MG TABLET PO SCH (08:40)
[2019-10-02] MEDS: FEBUXOSTAT 40 MG TABLET PO SCH (08:40)
[2019-10-02] MEDS: ANASTROZOLE 1 MG TAB PO SCH (08:40)
[2019-10-02] MEDS: LEVOTHYROXINE SODIUM 112 MCG TABLET PO SCH (08:40)
[2019-10-02] MEDS: MAGNESIUM OXIDE 400 MG TAB PO SCH ×2 (08:40→20:33)
[2019-10-02] MEDS: PANTOprazole 40 MG TAB PO SCH (08:40)
[2019-10-02] MEDS: ACETAMINOPHEN 1,000 MG/100 ML VIAL IV PRN (08:49)
[2019-10-02] MEDS ORDERED: METOPROLOL TARTRATE 25 MG TAB PO ONE (09:11)
[2019-10-02] MEDS ORDERED: POTASSIUM CHLORIDE 20 MEQ TABCR PO STA (10:32)
[2019-10-02] MEDS: POTASSIUM CHLORIDE / WTR 10 MEQ/100 ML PLCT IV SCH (10:41)
--- NOTE | 2019-10-02 15:20 | Hospitalist Progress Note ---
Date of Service October 02, 2019 Assessment & Plan (1) Hypoxia: 74-year-old female with PMHx of HFrEF 20-25%, COPD on 4L O2 chronically, CAD, HTN, breast cancer with multiple metastases to brain, CKD IV, GERD, hypothyroidism, DMII with neuropathy, prolonged QT who presented from [facility] for hypoxia, weakness/confusion, and shortness of breath. Found to have acute hypoxic/hypercapnic RF secondary to CHF exacerbation vs. JONATHON/obesity hypoventalation syndrome. Acute hypoxic, hypercapnic respiratory failure 2/2 CHF exacerbation vs. aflutter/afib vs. COPD vs. JONATHON/obesity hypoventilation Chest x-ray shows cardiomegaly with volume overload and significant congestive change -BNP 2478 -Last echo Aug 2019, EF 20-25% -VBG 09/30: pH of 7.33, noted CO2 level of 69 - 09/30/19 -On 4L NC (baseline) during the day and bipap at night -Received Lasix 20mg IV on 09/30 and 40mg IV on 09/29 -Weight 141kg on admission to [address] [place] [address] -930 cc fluid balance -continue levalbuterol duonebs Q6H tuan Atrial Fibrillation with RVR/Atrial Flutter -HR ranges from 80s-120s depending on afib vs. aflutter -Optimize electrolytes -continue home metoprolol 12.5mg BID, given an extra dose of metoprolol 12.5mg this AM for better rate control Continue warfarin 6 mg nightly with goal INR less than 1.5 per outside records due to potential for brain bleed given brain mets Hx of CAD and HTN Continue metoprolol 12.5 mg p.o. twice daily Continue rosuvastatin 10 mg p.o. nightly -Resume spironolactone 25mg and Lasix 40mg BID now that BP improved somewhat Subacute stroke vs. Brain mets CT head shows left frontal acute versus subacute stroke; pt had newly diagnosed brain mets in this distribution as well in august 2019 per [facility] note -Not TPA candidate -On warfarin and aspirin therapy History of breast and ?lung cancer, mets x4 to brain Per review of chart records, had lumpectomy with radiation for breast cancer. -Lung nodule possibly mets, in addition to brain mets. -currently on Armidex 1 mg p.o. every morning Patient and family report not pursuing chemotherapy, surgery, or curative treatment at this time See goals of care discussion below CKDIV -Baseline Cr 1.1, Cr 1.28 today Depression Continue sertraline 50 mg every morning GERD Continue Protonix 40 mg p.o. every morning History of gout Continue Uloric 40 mg p.o. every morning Hypothyroidism Continue Synthroid 112 mcg p.o. daily TSH within normal limits on admission DVT prophylaxis: Warfarin as above Diet: Heart healthy, sodium restriction CODE STATUS: DNR/DNI DISPOSITION: plan for hospice at home vs. SNF - family cannot assist at home and cost concern for SNF, pending discussion with family on Saturday Admission and Anticipated Discharge Date Admission Date: September 29, 2019 Supervising Physician Co-Signing Physician Notes Resident Physician Supervision Note: I independently interviewed and examined the patient and verified the pearl history and physical, reviewed labs and image studies, discussed the case with the resident Dr. Patton and agree with the findings and care plan. Subjective Pt resting in bed on NC when examined this AM. Reports improved sob and cough. Denies any sob, cp, headache, abdominal pain, n/v. Has gabriel in place with dark yellow urine. Review of Systems Review of Systems: As per HPI Physical Exam Physical Exam: General: In NAD, resting comfortably in bed HEENT: moist oral mucosa Neuro: A&O x 4 Pulm: Occasional rhonchi and wheezing appreciated, diminished but equal breath sounds bilaterally CV: Irregular rhythm, regular rate, no m/r/g, JVD difficult to appreciate due to body habitus Abdomen:+BS, no TTP in all quadrants, non-distended, obese abdomen LE: no LE edema, no calf TTP Results & Data ([facility]) Vital Signs (Past 12 Hours) Vital Signs Temp Pulse Pulse Resp BP BP Pulse Ox 10/02/19 13:25 83 20 94 10/02/19 11:52 36.8 C 77 20 114/67 95 10/02/19 07:31 36.3 C L 120 H 21 116/78 97 10/02/19 07:10 119 H 21 91 10/02/19 04:44 36.6 C 121 H 24 137/91 94 Resident Activity Tracking Resident Involvement: Resident Care Provided Care Provided: Adult [facility] Medicine
[2019-10-02] MEDS: ACETAMINOPHEN 325 MG TAB PO SCH (20:32)
[2019-10-02] MEDS: WARFARIN SOD 6 MG TAB PO SCH (20:32)
[2019-10-02] MEDS: CALCIUM 600MG + VIT D 400 IU TAB PO SCH (20:32)
[2019-10-02] MEDS: ROSUVASTATIN CALCIUM 10 MG TAB PO SCH (20:32)
[2019-10-02] MEDS: FUROSEMIDE 20 MG TAB PO SCH (20:33)
[2019-10-03] MEDS: LEVALBUTEROL HCL 0.63 MG/3 ML NEB NEB SCH ×4 (01:00→18:50)
[2019-10-03] MEDS: IPRATROPIUM BROMIDE NEB SOLN 0.02% 2.5 ML VIAL INH SCH ×4 (01:00→18:50)
[2019-10-03 06:40] LABS: Basophils # (auto) 0.02 K/uL (0-0.2); Basophils % (auto) 0.5 %; Eosinophils # (auto) 0.04 K/uL (0-0.5); Eosinophils % (auto) 0.9 %; Hematocrit (blood only) 42.5 % (37-47); Hemoglobin 12.6 g/dL (12.0-16.0); Immature Granulocytes # (auto) 0.08 K/uL (0.00-0.02); Immature Granulocytes % (auto) 1.8 %; Lymphocytes # (auto) 0.85 K/uL (1.2-3.4); Lymphocytes % (auto) 19.3 %; Mean Corpuscular Hemoglobin 24.3 pg (25-34); Mean Corpuscular Hgb Conc 29.6 g/dL (32-36); Monocytes # (auto) 0.51 K/uL (0.11-0.59); Monocytes % (auto) 11.6 %; Neutrophils % (auto) 65.9 %; Platelet Count 151 K/uL (130-400); RDW Coefficient of Variation 22.8 % (11.5-14.5); RDW Standard Deviation 67.4 fL (36.4-46.3); Red Blood Count 5.18 M/uL (4.2-5.4)
[2019-10-03] MEDS: LEVOTHYROXINE SODIUM 112 MCG TABLET PO SCH (06:47)
[2019-10-03 07:14] LABS: Anisocytosis Present
[2019-10-03 07:21] LABS: BUN Creatinine Ratio 22.8 (10-20); Calcium 9.1 mg/dl (8.5-10.1); Creatinine Clr Calc Pharmacy 42.2 ml/min; Est GFR (African American) 41.8; Potassium 4.1 mmol/L (3.5-5.1)
--- NOTE | 2019-10-03 07:22 | Hospitalist Progress Note ---
Date of Service October 03, 2019 Assessment & Plan (1) Hypoxia: Ms. Rojas is a 74-year-old female with PMHx of HFrEF 20-25%, COPD on 4L O2 chronically, CAD, HTN, breast cancer with multiple metastases to brain, CKD IV, GERD, hypothyroidism, DMII with neuropathy, prolonged QT who presented from [facility] for hypoxia, weakness/confusion, and shortness of breath. Found to have acute hypoxic/hypercapnic RF secondary to CHF exacerbation vs. JONATHON/obesity hypoventilation syndrome. Acute hypoxic, hypercapnic respiratory failure 2/2 CHF exacerbation vs. aflutter/afib vs. COPD vs. JONATHON/obesity hypoventilation Chest x-ray shows cardiomegaly with volume overload and significant congestive change -Last echo Aug 2019, EF 20-25% -Resolved - back to baseline of 4L NC during the day and bipap at night -Received Lasix 20mg IV on 09/30 and 40mg IV on 09/29 -Net -935 cc fluid balance with a significant drop in weight -continue levalbuterol duonebs Q6H tuan Atrial Fibrillation with RVR/Atrial Flutter -HR ranges from 80s-120s depending on afib vs. aflutter -Optimize electrolytes -continue home metoprolol 12.5mg BID Continue warfarin 6 mg nightly with goal INR less than 1.5 per outside records due to potential for brain bleed given brain mets Hx of CAD and HTN Continue metoprolol 12.5 mg p.o. twice daily Continue rosuvastatin 10 mg p.o. nightly -Resume spironolactone 25mg today -hold BID Lasix given elevated creatinine - can resume tomorrow depending on Cr level Subacute stroke vs. Brain mets CT head shows left frontal acute versus subacute stroke; pt had newly diagnosed brain mets in this distribution as well in August 2019 per [facility] note -Not TPA candidate -On warfarin and aspirin therapy History of breast and ?lung cancer, mets x4 to brain Per review of chart records, had lumpectomy with radiation for breast cancer. -Lung nodule possibly mets, in addition to brain mets. -currently on Armidex 1 mg p.o. every morning Patient and family report not pursuing chemotherapy, surgery, or curative treatment at this time See goals of care discussion below CKD IV -Baseline Cr 1.1 -Cr acutely increased to 1.42, suspect secondary to recent IV diuresis -hold Lasix today, trend BMP Constipation -pt states no BM since before admission -bowel regimen ordered Depression Continue sertraline 50 mg every morning GERD Continue Protonix 40 mg p.o. every morning History of gout Continue Uloric 40 mg p.o. every morning Hypothyroidism Continue Synthroid 112 mcg p.o. daily TSH within normal limits on admission Morbid obestiy - weight reduction will be helpful in respiratory status - considering palliative care evaluation. DVT prophylaxis: Warfarin as above Diet: Heart healthy, sodium restriction CODE STATUS: DNR/DNI DISPOSITION: Stable for downgrade to med/surg. Plan for hospice at home vs. at SNF - family cannot assist at home and cost concern for SNF, pending discussion with family on Saturday Admission and Anticipated Discharge Date Admission Date: September 29, 2019 Supervising Physician Co-Signing Physician Notes Resident Physician Supervision Note: I independently interviewed and examined the patient and verified the pearl history and physical, reviewed labs and image studies, discussed the case with the resident Dr. Daley and agree with the findings and care plan. Subjective Ms. Rojas was seen and examined this morning whilst laying in bed. She reports overall improvement in her symptoms. She denies cough, chest pain, or SOB. Her only complaint this AM is constipation. She states she has not had a BM since she was admitted to the hospital. She reports she takes miralax at home to move her bowels. Review of Systems Constitutional: no fever, no chills and no fatigue Respiratory: no cough and no dyspnea Cardiovascular: no chest pain and no edema Gastrointestinal: no abdominal pain and no vomiting Physical Exam Constitutional: WD/WN, vitals as above + morbidly obese Respiratory: Auscultation: + diminished lung sounds Cardiovascular: Rate/Rhythm: regular rate; + abnormal rhythm (irregularly irregular) Gastrointestinal (Abdomen): normal bowel sounds, soft, nontender, no hepatosplenomegaly Skin: chronic venous stasis changes b/l LE Results & Data ([facility]) Vital Signs (Past 12 Hours) Vital Signs Temp Pulse Pulse Pulse Resp BP BP 10/03/19 07:02 96 H 18 10/03/19 06:59 36.7 C 94 H 18 104/67 10/03/19 03:29 36.6 C 95 H 19 119/78 10/03/19 01:00 98 H 98 H 17 10/02/19 23:07 36.6 C 97 H 18 127/76 10/02/19 21:39 107 H 18 10/02/19 19:57 36.9 C 96 H 18 120/69 10/02/19 19:36 87 20 Pulse Ox 10/03/19 07:02 93 10/03/19 06:59 93 10/03/19 03:29 92 10/03/19 01:00 90 10/02/19 23:07 93 10/02/19 21:39 90 10/02/19 19:57 93 10/02/19 19:36 97 Resident Activity Tracking Resident Involvement: Resident Care Provided Care Provided: Adult Hospital Medicine
[2019-10-03] MEDS: FEBUXOSTAT 40 MG TABLET PO SCH (09:03)
[2019-10-03] MEDS: ASPIRIN 81 MG ECTAB PO SCH (09:04)
[2019-10-03] MEDS: DOCUSATE SODIUM 100 MG CAP PO SCH (09:04)
[2019-10-03] MEDS: MAGNESIUM OXIDE 400 MG TAB PO SCH ×2 (09:04→20:50)
[2019-10-03] MEDS: PANTOprazole 40 MG TAB PO SCH (09:04)
[2019-10-03] MEDS: METOPROLOL TARTRATE 25 MG TAB PO SCH ×2 (09:04→20:52)
[2019-10-03] MEDS: SERTRALINE HCL 50 MG TABLET PO SCH (09:04)
[2019-10-03] MEDS: POTASSIUM CHLORIDE 20 MEQ TABCR PO SCH (09:04)
[2019-10-03] MEDS: FLUTICASONE/VILANTEROL 100/25MCG 14 PUFFS/INHALER INH SCH (09:05)
[2019-10-03] MEDS: ANASTROZOLE 1 MG TAB PO SCH (09:05)
[2019-10-03] MEDS ORDERED: MAGNESIUM HYDROXIDE SUSP 30 ML UDC PO PRN (09:06)
[2019-10-03] MEDS: PREGABALIN 150 MG CAP PO SCH ×2 (09:10→20:50)
[2019-10-03] MEDS: FUROSEMIDE 40 MG TAB PO SCH (09:10)
[2019-10-03] MEDS: SPIRONOLACTONE 25 MG TAB PO SCH (09:10)
[2019-10-03] MEDS ORDERED: POLYETHYLENE (MIRALAX) 17 GM PACK ONE (09:15)
[2019-10-03] MEDS: POLYETHYLENE (MIRALAX) 17 GM PACK PO SCH ×2 (09:17→09:21)
[2019-10-03] MEDS: WARFARIN SOD 6 MG TAB PO SCH (20:51)
[2019-10-03] MEDS: ACETAMINOPHEN 325 MG TAB PO SCH (20:51)
[2019-10-03] MEDS: ROSUVASTATIN CALCIUM 10 MG TAB PO SCH (20:52)
[2019-10-03] MEDS: CALCIUM 600MG + VIT D 400 IU TAB PO SCH (20:53)
[2019-10-04] MEDS: LEVALBUTEROL HCL 0.63 MG/3 ML NEB NEB SCH ×2 (01:25→06:58)
[2019-10-04] MEDS: IPRATROPIUM BROMIDE NEB SOLN 0.02% 2.5 ML VIAL INH SCH ×2 (01:25→06:57)
[2019-10-04] MEDS: LEVOTHYROXINE SODIUM 112 MCG TABLET PO SCH (06:06)
[2019-10-04 07:07] LABS: BUN Creatinine Ratio 24.1 (10-20); Calcium 8.8 mg/dl (8.5-10.1); Creatinine Clr Calc Pharmacy 45.8 ml/min; Est GFR (Non-African American) 39.7; Potassium 4.3 mmol/L (3.5-5.1)
--- NOTE | 2019-10-04 07:45 | Hospitalist Progress Note ---
Date of Service October 04, 2019 Assessment & Plan (1) Hypoxia: Ms. Rojas is a 74-year-old female with PMHx of HFrEF 20-25%, COPD on 4L O2 chronically, CAD, HTN, breast cancer with multiple metastases to brain, CKD IV, GERD, hypothyroidism, DMII with neuropathy, prolonged QT who presented from [facility] for hypoxia, weakness/confusion, and shortness of breath. Found to have acute hypoxic/hypercapnic RF secondary to CHF exacerbation vs. JONATHON/obesity hypoventilation syndrome. Acute hypoxic, hypercapnic respiratory failure 2/2 CHF exacerbation vs. aflutter/afib vs. COPD vs. JONATHON/obesity hypoventilation Chest x-ray shows cardiomegaly with volume overload and significant congestive change -Last echo Aug 2019, EF 20-25% -Resolved - back to baseline of 4L NC during the day and bipap at night -Received Lasix 20mg IV on 09/30 and 40mg IV on 09/29 -holding Lasix last few days given ELMER, and as such, her urine output has slowed down and she is net positive 119mL today -restart home Lasix tonight -patient has had a significant drop in weight since admission -change levalbuterol duonebs Q6H from scheduled to prn Atrial Fibrillation with RVR/Atrial Flutter -HR ranges from 80s-120s depending on afib vs. aflutter -Optimize electrolytes -continue home metoprolol 12.5mg BID Continue warfarin 6 mg nightly with goal INR less than 1.5 per outside records due to potential for brain bleed given brain mets Hx of CAD and HTN Continue metoprolol 12.5 mg p.o. twice daily Continue rosuvastatin 10 mg p.o. nightly -continue spironolactone 25mg -restart BID Lasix tonight given improving creatinine Subacute stroke vs. Brain mets CT head shows left frontal acute versus subacute stroke; pt had newly diagnosed brain mets in this distribution as well in August 2019 per [facility] note -Not TPA candidate -On warfarin and aspirin therapy History of breast and ?lung cancer, mets x4 to brain Per review of chart records, had lumpectomy with radiation for breast cancer. -Lung nodule possibly mets, in addition to brain mets. -currently on Armidex 1 mg p.o. every morning Patient and family report not pursuing chemotherapy, surgery, or curative treatment at this time palliative consulted - thank you for recommendations -> son and daughter agree patient has been declining, and overall goal is for comfort care -> family meeting scheduled for tomorrow to discuss disposition CKD IV -Baseline Cr 1.1 -Cr 1.31 today. Given improving from yesterday, can restart Lasix and continue to trend Constipation -resolved -continue bowel regimen Depression Continue sertraline 50 mg every morning GERD Continue Protonix 40 mg p.o. every morning History of gout Continue Uloric 40 mg p.o. every morning Hypothyroidism Continue Synthroid 112 mcg p.o. daily TSH within normal limits on admission Morbid obesity -weight reduction will be helpful in respiratory status DVT prophylaxis: Warfarin as above. INR scheduled for tomorrow Diet: Heart healthy, sodium restriction CODE STATUS: DNR/DNI DISPOSITION: remains on med/surg. Plan for hospice at home vs. at SNF - family cannot assist at home and cost concern for SNF, pending discussion with family tomorrow Admission and Anticipated Discharge Date Admission Date: September 29, 2019 Supervising Physician Co-Signing Physician Notes Resident Physician Supervision Note: I independently interviewed and examined the patient and verified the pearl history and physical, reviewed labs and image studies, discussed the case with the resident Dr. Daley and agree with the findings and care plan. Subjective Ms. Rojas reports she feels well today. She states she worked with physical therapy yesterday, and her major goal is to be able to ambulate to the bathroom unassisted. She states she had a large BM yesterday, and is feeling better with regards to her constipation. She has tolerated her diet well. She reports her breathing is at baseline. Review of Systems Constitutional: no fever and no chills Respiratory: no dyspnea Cardiovascular: no chest pain and no palpitations Gastrointestinal: no abdominal pain, no vomiting and no constipation Physical Exam Constitutional: WD/WN, vitals as above + morbidly obese Respiratory: Auscultation: + diminished lung sounds Cardiovascular: Rate/Rhythm: regular rate; + abnormal rhythm (irregularly irregular) Gastrointestinal (Abdomen): Percussion/Palpation: abdomen soft; abdomen nontender Results & Data ([facility]) Vital Signs (Past 12 Hours) Vital Signs Temp Pulse Pulse Resp BP Pulse Ox 10/04/19 07:10 36.9 C 95 H 18 94/63 L 91 10/04/19 06:59 100 H 19 91 10/04/19 03:53 90 10/04/19 01:26 79 18 85 L 10/04/19 01:25 79 18 85 L 10/03/19 23:00 36.9 C 82 17 102/55 L 92 10/03/19 22:45 91 H 20 92 Resident Activity Tracking Resident Involvement: Resident Care Provided Care Provided: Adult Hospital Medicine
[2019-10-04] MEDS: SPIRONOLACTONE 25 MG TAB PO SCH (09:40)
[2019-10-04] MEDS: POLYETHYLENE (MIRALAX) 17 GM PACK PO SCH (09:40)
[2019-10-04] MEDS: PREGABALIN 150 MG CAP PO SCH ×2 (09:40→21:25)
[2019-10-04] MEDS: POTASSIUM CHLORIDE 20 MEQ TABCR PO SCH (09:40)
[2019-10-04] MEDS: FEBUXOSTAT 40 MG TABLET PO SCH (09:41)
[2019-10-04] MEDS: PANTOprazole 40 MG TAB PO SCH (09:41)
[2019-10-04] MEDS: SERTRALINE HCL 50 MG TABLET PO SCH (09:41)
[2019-10-04] MEDS: ASPIRIN 81 MG ECTAB PO SCH (09:41)
[2019-10-04] MEDS: FLUTICASONE/VILANTEROL 100/25MCG 14 PUFFS/INHALER INH SCH (09:42)
[2019-10-04] MEDS: DOCUSATE SODIUM 100 MG CAP PO SCH (09:42)
[2019-10-04] MEDS: ANASTROZOLE 1 MG TAB PO SCH (09:42)
[2019-10-04] MEDS: MAGNESIUM OXIDE 400 MG TAB PO SCH ×2 (09:43→21:30)
[2019-10-04] MEDS: METOPROLOL TARTRATE 25 MG TAB PO SCH ×2 (09:51→21:25)
[2019-10-04] MEDS ORDERED: IPRATROPIUM BROMIDE NEB SOLN 0.02% 2.5 ML VIAL INH PRN (11:34)
[2019-10-04] MEDS ORDERED: LEVALBUTEROL HCL 0.63 MG/3 ML NEB NEB PRN (11:35)
[2019-10-04] MEDS: CALCIUM 600MG + VIT D 400 IU TAB PO SCH (21:25)
[2019-10-04] MEDS: WARFARIN SOD 6 MG TAB PO SCH (21:28)
[2019-10-04] MEDS: FUROSEMIDE 20 MG TAB PO SCH (21:29)
[2019-10-04] MEDS: ROSUVASTATIN CALCIUM 10 MG TAB PO SCH (21:29)
[2019-10-04] MEDS: ACETAMINOPHEN 325 MG TAB PO SCH (21:31)
[2019-10-05] MEDS: LEVOTHYROXINE SODIUM 112 MCG TABLET PO SCH (06:17)
[2019-10-05 06:56] LABS: INR 1.7 (0.9-1.1); Prothrombin Time 16.5 Seconds (9.0-12.0)
[2019-10-05 07:17] LABS: BUN Creatinine Ratio 23.2 (10-20); Calcium 8.3 mg/dl (8.5-10.1); Creatinine Clr Calc Pharmacy 44.6 ml/min; Est GFR (African American) 45.6; Est GFR (Non-African American) 39.4; Potassium 4.4 mmol/L (3.5-5.1)
[2019-10-05] MEDS: FEBUXOSTAT 40 MG TABLET PO SCH (09:16)
[2019-10-05] MEDS: POTASSIUM CHLORIDE 20 MEQ TABCR PO SCH (09:16)
[2019-10-05] MEDS: ANASTROZOLE 1 MG TAB PO SCH (09:16)
[2019-10-05] MEDS: PREGABALIN 150 MG CAP PO SCH ×2 (09:17→20:39)
[2019-10-05] MEDS: PANTOprazole 40 MG TAB PO SCH (09:17)
[2019-10-05] MEDS: METOPROLOL TARTRATE 25 MG TAB PO SCH ×2 (09:17→20:40)
[2019-10-05] MEDS: FLUTICASONE/VILANTEROL 100/25MCG 14 PUFFS/INHALER INH SCH (09:18)
[2019-10-05] MEDS: MAGNESIUM OXIDE 400 MG TAB PO SCH ×2 (09:18→20:40)
[2019-10-05] MEDS: SPIRONOLACTONE 25 MG TAB PO SCH (09:18)
[2019-10-05] MEDS: ASPIRIN 81 MG ECTAB PO SCH (09:18)
[2019-10-05] MEDS: FUROSEMIDE 40 MG TAB PO SCH (09:18)
[2019-10-05] MEDS: SERTRALINE HCL 50 MG TABLET PO SCH (09:19)
[2019-10-05] MEDS: POLYETHYLENE (MIRALAX) 17 GM PACK PO SCH (09:27)
[2019-10-05] MEDS: DOCUSATE SODIUM 100 MG CAP PO SCH (09:27)
[2019-10-05] MEDS ORDERED: HYDROCORTISONE ACETATE 25 MG SUPP PR PRN (09:30)
[2019-10-05] MEDS ORDERED: ACETAMINOPHEN 500 MG TAB PO SCH (10:00)
[2019-10-05] MEDS ORDERED: ACETAMINOPHEN 500 MG TAB PO PRN (14:50)
--- NOTE | 2019-10-05 15:41 | Hospitalist Progress Note ---
Date of Service October 05, 2019 Assessment & Plan (1) Hypoxia: Ms. Rojas is a 74-year-old female with PMHx of HFrEF 20-25%, COPD on 4L O2 chronically, CAD, HTN, breast cancer with multiple metastases to brain, CKD IV, GERD, hypothyroidism, DMII with neuropathy who presented from [facility] for hypoxia, weakness/confusion, and shortness of breath. Found to have acute hypoxic/hypercapnic respiratory failure secondary to CHF exacerbation vs. JONATHON/obesity hypoventilation syndrome. Currently medically stable for discharge; family discussion as to whether home with hospice vs. SNF. [facility]. Acute hypoxic, hypercapnic respiratory failure 2/ CHF exacerbation vs. aflutter/afib vs. COPD vs. JONATHON/obesity hypoventilation Chest x-ray shows cardiomegaly with volume overload and significant congestive change -Last echo Aug 2019, EF 20-25% -currently back to baseline of 4L NC during the day and bipap at night -Received Lasix 20mg IV on 09/30 and 40mg IV on 09/29 -continue home Lasix -continue levalbuterol duonebs Q6H PRN Atrial Fibrillation with RVR/Atrial Flutter -HR ranges from 80s-120s depending on afib vs. aflutter -Optimize electrolytes -continue home metoprolol 12.5mg BID Continue warfarin 6 mg nightly with goal INR less than 1.5 per outside records due to potential for brain bleed given brain mets Hx of CAD and HTN Continue metoprolol 12.5 mg p.o. twice daily Continue rosuvastatin 10 mg p.o. nightly -continue spironolactone 25mg -continue home Lasix Subacute stroke vs. Brain mets CT head shows left frontal acute versus subacute stroke; pt had newly diagnosed brain mets in this distribution as well in August 2019 per [facility] note -Not TPA candidate -On warfarin and aspirin therapy History of breast and ?lung cancer, mets x4 to brain Per review of chart records, had lumpectomy with radiation for breast cancer. -Lung nodule possibly mets, in addition to brain mets. -currently on Armidex 1 mg p.o. every morning Patient and family report not pursuing chemotherapy, surgery, or curative treatment at this time palliative consulted, appreciate recs. Discussion 10/05 as to whether home with hospice vs. SNF with hospice. Family [facility]. CKD IV -Baseline Cr 1.1 -Currently elevated, will continue to monitor Constipation -continue bowel regimen Depression Continue sertraline 50 mg every morning GERD Continue Protonix 40 mg p.o. every morning History of gout Continue Uloric 40 mg p.o. every morning Hypothyroidism Continue Synthroid 112 mcg p.o. daily TSH within normal limits on admission DVT prophylaxis: Warfarin Diet: Heart healthy, sodium restriction CODE STATUS: DNR/DNI DISPOSITION: rPlan for hospice at - [facility]. Admission and Anticipated Discharge Date Admission Date: September 29, 2019 Supervising Physician Co-Signing Physician Notes I personally examined the patient and verified all pearl points of history and exam, discussed case, and agree with decision making with Dr Delgado. No new complaints. Family presentafter discussions they opted to try to return the patient to [facility], feeling that a supervised/protected environment would be best for her. Vitals noted, in general she is awake and alert pleasant no distress. HEENT normocephalic atraumatic mucous membranes moist. Breathing unlabored no accessory muscle use good effort. Skin shows no rashes no pallor or icterus. Hypoxic respiratory failurenow improved. Seems to have been a mixed picture. Metastatic breast cancer goal of return to Subjective Ms. Rojas was seen this AM. She was sitting up in bed. Stated that she had a headache and needed something for her hemorrhoids. States she has been eating and tolerating PO intake. Denies any changes to vision, cough, runny nose, sore throat, dizziness, weakness, chest pain, SOB, palpitations, abdominal pain, diarrhea or constipation. Review of Systems Review of Systems: All systems reviewed & are unremarkable except as noted in Subjective Physical Exam Physical Exam: General: Alert, oriented. No acute distress, sitting up in bed with NC in nares Skin: No noted rashes or bruises Psych: Appropriate mood and affect HEENT: NC/AT Chest: Nontender to palpation. CV: RRR, Normal s1, s2. No murmurs appreciated Resp: Breath sounds coarse bilaterally, no increased effort of breathing. Abdomen: BS+. Soft, nontender. No guarding. No organomegaly appreciated. Extremities:Trace edema in lower extremities bilaterally. Results & Data ([facility]) Vital Signs (Past 12 Hours) Vital Signs Temp Pulse Resp BP Pulse Ox 10/05/19 07:32 36.6 C 86 16 120/75 93 Resident Activity Tracking Resident Involvement: Resident Care Provided Care Provided: Adult Hospital Medicine
--- NOTE | 2019-10-05 18:27 | Billing Data ---
Date of Service October 05, 2019 Coding Level of Care Code 43556 Subseq Hosp Care Lvl 2
[2019-10-05] MEDS: ROSUVASTATIN CALCIUM 10 MG TAB PO SCH (20:39)
[2019-10-05] MEDS: CALCIUM 600MG + VIT D 400 IU TAB PO SCH (20:39)
[2019-10-05] MEDS: WARFARIN SOD 6 MG TAB PO SCH (20:41)
[2019-10-05] MEDS: FUROSEMIDE 20 MG TAB PO SCH (20:41)
[2019-10-06 06:11] LABS: BUN Creatinine Ratio 22.4 (10-20); Calcium 8.9 mg/dl (8.5-10.1); Creatinine Clr Calc Pharmacy 38.8 ml/min; Est GFR (African American) 38.5; Est GFR (Non-African American) 33.2; Potassium 4.1 mmol/L (3.5-5.1)
[2019-10-06] MEDS: LEVOTHYROXINE SODIUM 112 MCG TABLET PO SCH (06:18)
--- NOTE | 2019-10-06 07:06 | Hospitalist Progress Note ---
Date of Service October 06, 2019 Assessment & Plan (1) Hypoxia: Ms. Rojas is a 74-year-old female with PMHx of HFrEF 20-25%, COPD on 4L O2 chronically, CAD, HTN, breast cancer with multiple metastases to brain, CKD IV, GERD, hypothyroidism, DMII with neuropathy who presented from [facility] for hypoxia, weakness/confusion, and shortness of breath. Found to have acute hypoxic/hypercapnic respiratory failure secondary to CHF exacerbation vs. JONATHON/obesity hypoventilation syndrome. Currently medically stable for discharge; family decided [facility] for further rehab. Awaiting placement. Acute hypoxic, hypercapnic respiratory failure 2/2 CHF exacerbation vs. aflutter/afib vs. COPD vs. JONATHON/obesity hypoventilation Chest x-ray shows cardiomegaly with volume overload and significant congestive change -Last echo Aug 2019, EF 20-25% -currently back to baseline of 4L NC during the day and bipap at night -Received Lasix 20mg IV on 09/30 and 40mg IV on 09/29 -continue home Lasix -continue levalbuterol duonebs Q6H PRN, Atrovent PRN Atrial Fibrillation with RVR/Atrial Flutter -HR ranges from 80s-120s depending on afib vs. aflutter -Optimize electrolytes -continue home metoprolol 12.5mg BID Continue warfarin 6 mg nightly with goal INR less than 1.5 per outside records due to potential for brain bleed given brain mets Hx of CAD and HTN Continue metoprolol 12.5 mg p.o. twice daily Continue rosuvastatin 10 mg p.o. nightly -continue spironolactone 25mg -continue home Lasix Subacute stroke vs. Brain mets CT head shows left frontal acute versus subacute stroke; pt had newly diagnosed brain mets in this distribution as well in August 2019 per [facility] note -Not TPA candidate -On warfarin and aspirin therapy History of breast and ?lung cancer, mets x4 to brain Per review of chart records, had lumpectomy with radiation for breast cancer. -Lung nodule possibly mets, in addition to brain mets. -currently on Armidex 1 mg p.o. every morning Patient and family report not pursuing chemotherapy, surgery, or curative treatment at this time palliative consulted, appreciate recs. Discussion 10/05 as to whether home with hospice vs. SNF. Family decided [facility] for rehab at this time. CKD IV -Baseline Cr 1.1 -Currently elevated, will continue to monitor Constipation -continue bowel regimen Depression Continue sertraline 50 mg every morning GERD Continue Protonix 40 mg p.o. every morning History of gout Continue Uloric 40 mg p.o. every morning Hypothyroidism Continue Synthroid 112 mcg p.o. daily TSH within normal limits on admission DVT prophylaxis: Warfarin Diet: Heart healthy, sodium restriction CODE STATUS: DNR/DNI DISPOSITION: [facility] for rehab at this time Admission and Anticipated Discharge Date Admission Date: September 29, 2019 Supervising Physician Co-Signing Physician Notes I personally examined the patient and verified all pearl points of history and exam, discussed case, and agree with decision making with Dr Delgado. sleeping comfortably. nursing notes no problems. d/w case management - awaiting approval for [facility]. Vitals noted, no distress. HEENT normocephalic atraumatic mucous membranes moist. Breathing unlabored no accessory muscle use good effort. Skin shows no rashes no pallor or icterus. Hypoxic respiratory failurenow improved. Seems to have been a mixed picture. follow breathing - comfortable. Metastatic breast cancer goal of return to SNF - awaiting approval. Subjective Ms. Rojas seen this AM, states that her hemorrhoidal pain is improved and her headache is better. Otherwise stable. Denies any headache, changes to vision, cough, runny nose, sore throat, chest pain, SOB, palpitations, abdominal pain, diarrhea or constipation, swelling in hands or feet or numbness or tingling anywhere. Review of Systems Review of Systems: All systems reviewed & are unremarkable except as noted in Subjective Physical Exam Physical Exam: General: Alert, oriented. No acute distress, sitting up in bed watching tv Skin: Fading bruise on right side of head, left arm with senile purpura Psych: Appropriate mood and affect HEENT: oropharynx moist Chest: Nontender to palpation. CV: RRR, Normal s1, s2. No murmurs appreciated Resp: Breath sounds coarse bilaterally on back, no increased effort of breathing. Abdomen: BS+. Soft, nontender. No guarding. No organomegaly appreciated. Extremities:Trace edema in lower extremities bilaterally. Results & Data ([facility]) Vital Signs (Past 12 Hours) Vital Signs Temp Pulse Pulse Resp BP Pulse Ox 10/06/19 05:14 98 H 20 91 10/06/19 01:42 96 H 20 98 10/05/19 23:11 82 18 95 10/05/19 23:00 36.7 C 82 16 134/68 91 10/05/19 20:38 87 113/71 Resident Activity Tracking Resident Involvement: Resident Care Provided Care Provided: Adult Hospital Medicine
[2019-10-06] MEDS: DOCUSATE SODIUM 100 MG CAP PO SCH (08:57)
[2019-10-06] MEDS: POLYETHYLENE (MIRALAX) 17 GM PACK PO SCH (08:58)
[2019-10-06] MEDS: FLUTICASONE/VILANTEROL 100/25MCG 14 PUFFS/INHALER INH SCH (08:59)
[2019-10-06] MEDS: SPIRONOLACTONE 25 MG TAB PO SCH (08:59)
[2019-10-06] MEDS: FUROSEMIDE 40 MG TAB PO SCH (08:59)
[2019-10-06] MEDS: PREGABALIN 150 MG CAP PO SCH ×2 (08:59→21:15)
[2019-10-06] MEDS: ANASTROZOLE 1 MG TAB PO SCH (08:59)
[2019-10-06] MEDS: POTASSIUM CHLORIDE 20 MEQ TABCR PO SCH (08:59)
[2019-10-06] MEDS: MAGNESIUM OXIDE 400 MG TAB PO SCH ×2 (08:59→21:13)
[2019-10-06] MEDS: SERTRALINE HCL 50 MG TABLET PO SCH (08:59)
[2019-10-06] MEDS: PANTOprazole 40 MG TAB PO SCH (08:59)
[2019-10-06] MEDS: FEBUXOSTAT 40 MG TABLET PO SCH (08:59)
[2019-10-06] MEDS: ASPIRIN 81 MG ECTAB PO SCH (08:59)
[2019-10-06] MEDS: METOPROLOL TARTRATE 25 MG TAB PO SCH ×2 (08:59→21:13)
[2019-10-06 10:19] LABS: INR 2.2 (0.9-1.1); Prothrombin Time 21.6 Seconds (9.0-12.0)
--- NOTE | 2019-10-06 16:56 | Billing Data ---
Date of Service October 06, 2019 Coding Level of Care Code 65868 Subseq Hosp Care Lvl 1
[2019-10-06] MEDS: ROSUVASTATIN CALCIUM 10 MG TAB PO SCH (21:13)
[2019-10-06] MEDS: CALCIUM 600MG + VIT D 400 IU TAB PO SCH (21:13)
[2019-10-06] MEDS: FUROSEMIDE 20 MG TAB PO SCH (21:13)
[2019-10-07] MEDS: LEVOTHYROXINE SODIUM 112 MCG TABLET PO SCH (05:26)
[2019-10-07 06:01] LABS: INR 2.3 (0.9-1.1)
[2019-10-07 06:18] LABS: BUN Creatinine Ratio 23.2 (10-20); Calcium 9.3 mg/dl (8.5-10.1); Creatinine Clr Calc Pharmacy 40.8 ml/min; Est GFR (African American) 40.1; Est GFR (Non-African American) 34.6; Potassium 4.1 mmol/L (3.5-5.1)
[2019-10-07] MEDS: METOPROLOL TARTRATE 25 MG TAB PO SCH (07:31)
[2019-10-07] MEDS: ANASTROZOLE 1 MG TAB PO SCH (07:31)
[2019-10-07] MEDS: PANTOprazole 40 MG TAB PO SCH (07:31)
[2019-10-07] MEDS: POTASSIUM CHLORIDE 20 MEQ TABCR PO SCH (07:31)
[2019-10-07] MEDS: MAGNESIUM OXIDE 400 MG TAB PO SCH (07:31)
[2019-10-07] MEDS: SPIRONOLACTONE 25 MG TAB PO SCH (07:31)
[2019-10-07] MEDS: FUROSEMIDE 40 MG TAB PO SCH (07:31)
[2019-10-07] MEDS: FEBUXOSTAT 40 MG TABLET PO SCH (07:31)
[2019-10-07] MEDS: ASPIRIN 81 MG ECTAB PO SCH (07:31)
[2019-10-07] MEDS: FLUTICASONE/VILANTEROL 100/25MCG 14 PUFFS/INHALER INH SCH (07:31)
[2019-10-07] MEDS: SERTRALINE HCL 50 MG TABLET PO SCH (07:31)
[2019-10-07] MEDS: PREGABALIN 150 MG CAP PO SCH (07:35)
[2019-10-07] MEDS: DOCUSATE SODIUM 100 MG CAP PO SCH (07:35)
[2019-10-07] MEDS: POLYETHYLENE (MIRALAX) 17 GM PACK PO SCH (07:36)
--- NOTE | 2019-10-07 15:26 | Discharge Summary ---
Date of Service October 07, 2019 Admission HPI Per Admitting Provider Edel is a 74-year-old female with past medical history of lung cancer with multiple metastasis to brain, chronic kidney disease stage IV, hypertension, chronic diastolic heart failure, GERD, hypothyroidism, CAD, diabetes mellitus with neuropathy, COPD, prolonged QT, and cellulitis who presented to [facility] from [facility] for hypoxia, weakness/confusion, and shortness of breath. Edel was last in her normal state of health on Saturday morning. Saturday evening she developed mild shortness of breath and fatigue. Her fatigue progressively increased and her son and daughter noted that she seemed very tired and a little bit delirious this morning. Her daughter noted that she seemed to be having hallucinations and was asking "who is the child that is with you ". She was noted to be hypoxic and was transferred to the emergency department for further care. No new cold-like symptoms. No diarrhea or constipation. Afebrile, no fever/chills/sweats. She has had similar symptoms before with heart failure exacerbations managed with Lasix. On admission she was noted to have a subacute left frontal infarct of unclear age. She has a history of A. fib and PE for which she is on chronic warfarin therapy. She is on aspirin at baseline. Her son Tayo and daughter Valentine are present at bedside. They reported they had not had goals of care discussions previously, but feel that their mother's clinical course was worsening and that she was not tolerating rehab well and was unlikely to return to her baseline level of function. She is not currently a candidate for chemotherapy. Family, and they feel that they would not want chemotherapy, surgery, or radiation. He reports he would want full medical treatment including antibiotics, intubation for declining respiratory status if necessary and possible temporary, but would not want CPR or intubation in the setting of cardiac arrest. Discussed palliative care and hospice potential, they feel that potential return home with hospice services are consistent with goals of care at this time but comfort measures only. They would like to speak with palliative care during admission. DNR/DNI status placed consistent with above discussion. Medical history: Reviewed as above Medications: Reviewed, see EMR. Up-to-date from [facility]. Allergies: Allergic to penicillin, melatonin Surgical history: Reviewed, see EMR No alcohol use. Former smoker. No recreational drug use. Social: At [facility], with family as above. CODE STATUS: DNR/DNI, see above Admission Exam Per Admitting Provider General: Appears fatigued, somnolent. Oriented to name only. On BiPAP. HEENT: Bruising present on the right maxilla/cheek. External nasal and ear anatomy normal without difficulty. Mucous membranes moist. Pulm: Bilateral crackles/light rales.. Symmetrical chest rise. On BiPAP. Cardiac: Irregularly irregular, heart sounds distant. Radial pulses intact and symmetrical. Abdominal: Obese, nonrigid, nontender. Extremities: 1+ edema to the calf bilaterally. Neuro exam limited by patient's somnolence. [place] Warden strength intact bilaterally, symmetrical. Patient able to wiggle toes bilaterally. Pupils equal and responsive to light and accommodation, extraocular movements intact without nystagmus. Tongue protrudes midline. No facial asymmetry, eyebrow raise, smile intact. Cheek puff not performed due to BiPAP. Hearing grossly intact, vision grossly intact. Principal Diagnosis CHF Exacerbation, Atrial Fibrillation with RVR Discharge Exam General: Alert, oriented. No acute distress, sitting up in bed watching tv Skin: Fading bruise on right side of head, left arm with senile purpura Psych: Appropriate mood and affect HEENT: oropharynx moist Chest: Nontender to palpation. CV: RRR, Normal s1, s2. No murmurs appreciated Resp: Breath sounds with wheezing this AM on front, no increased effort of breathing. Abdomen: BS+. Soft, nontender. No guarding. No organomegaly appreciated. Extremities:Trace edema in lower extremities bilaterally. Discharge Data Allergies Allergy/AdvReac Type Severity Reaction Status Date / Time melatonin Allergy Severe RASH Verified 09/29/19 20:32 Penicillins Allergy Unknown UNLNOWN Verified 09/29/19 20:32 Consultations 09/29/19 19:55 ED Decision to Admit Stat 09/29/19 22:08 Consult Palliative Care Stat 10/01/19 07:32 Consult Palliative Care Routine Ordered Studies 09/29/19 18:30 CT head/brain wo con Stat Hospital Course (1) Hypoxia: Ms. Rojas is a 74-year-old female with PMHx of HFrEF 20-25%, COPD on 4L O2 chronically, CAD, HTN, breast cancer with multiple metastases to brain, CKD IV, GERD, hypothyroidism, DMII with neuropathy who presented from [facility] for hypoxia, weakness/confusion, and shortness of breath. Found to have acute hypoxic/hypercapnic respiratory failure secondary to CHF exacerbation vs. JONATHON/obesity hypoventilation syndrome. Admitted on Sep 29 2019 and discharged to [facility] on Oct 07 2019 for acute rehab to be able to be functional at home. Acute hypoxic, hypercapnic respiratory failure 2/2 CHF exacerbation vs. aflutter/afib vs. COPD vs. JONATHON/obesity hypoventilation Chest x-ray showed cardiomegaly with volume overload and significant congestive change on admission -Last echo Aug 2019, EF 20-25% -currently back to baseline of 4L NC during the day and bipap at night; continue nightly CPAP at facility on discharge. Was noted to be retaining CO2 with a level of 69 early during her stay. -Received Lasix 20mg IV on 09/30 and 40mg IV on 09/29 -continue home Lasix, 40mg in the AM, 20mg in the evening at 5PM, to lessen frequency of nighttime urination and resultant periods of incontinence. -continue daily weights. MD should be notified if there is weight gain >3lbs in 1-2 days -continue levalbuterol duonebs Q6H PRN, Atrovent PRN Atrial Fibrillation with RVR/Atrial Flutter -HR ranges from 80s-120s depending on afib vs. aflutter -Continue to optimize electrolytes -continue home metoprolol 12.5mg BID Continue warfarin 6 mg nightly with goal INR less than 1.5 per outside records due to potential for brain bleed given brain mets. INR on discharge was 2.2. Of note, last warfarin dose was Oct 05. Please restart on discharge. Repeat INR in 2 days to determine level. Hx of CAD and HTN Continue metoprolol 12.5 mg p.o. twice daily Continue rosuvastatin 10 mg p.o. nightly -continue spironolactone 25mg -continue home Lasix as above Subacute stroke vs. Brain mets CT head shows left frontal acute versus subacute stroke; pt had newly diagnosed brain mets in this distribution as well in August [address] [facility] note -Not TPA candidate -On warfarin and aspirin therapy History of breast and ?lung cancer, mets x4 to brain Per review of chart records, had lumpectomy with radiation for breast cancer. -Lung nodule possibly mets, in addition to brain mets. -currently on Armidex 1 mg p.o. every morning Patient and family report not pursuing chemotherapy, surgery, or curative treatment at this time palliative consulted, appreciate recs. Family decided [facility] for rehab at this time with goal of getting patient to the point where she can be functional to return to her home she built 10 years ago. CKD IV -Baseline Cr 1.1, was 1.47 on discharge Constipation -continue bowel regimen Depression Continue sertraline 50 mg every morning GERD Continue Protonix 40 mg p.o. every morning History of gout Continue Uloric 40 mg p.o. every morning Hypothyroidism Continue Synthroid 112 mcg p.o. daily TSH within normal limits on admission DVT prophylaxis: Warfarin Diet: Heart healthy, sodium restriction CODE STATUS: DNR/DNI DISPOSITION: [facility] for rehab at this time Total Time Total Time Spent Total Time Spent (In Minutes): 45 minutes; this includes phone calls to insurance company for peer to peer process Discharge Plan Discharge Items Patient Disposition: Transfer Long Term Fac Reason For Visit: AHRF,AOC CHF,AMS Discharge Diagnosis: CHF Activity: Per Instructions section Non-emergency contact: Primary Care Provider Call non-emergency contact if: your symptoms worsen and you have a fever Follow-up/Referrals: Federico Hernandez [Primary Care Provider] - Diet: Heart Healthy and Low Sodium (2gm) Addtl Attending Provider Instructions: Ms. Rojas is a 74-year-old female with PMHx of HFrEF 20-25%, COPD on 4L O2 chronically, CAD, HTN, breast cancer with multiple metastases to brain, CKD IV, GERD, hypothyroidism, DMII with neuropathy who presented from [facility] for hypoxia, weakness/confusion, and shortness of breath. Found to have acute hypoxic/hypercapnic respiratory failure secondary to CHF exacerbation vs. JONATHON/obesity hypoventilation syndrome. SUMMARY RECOMMENDATIONS -continue home Lasix 40mg in AM, and 20mg in the evening AT 5PM to limit nighttime urination -Continue daily weights. Please contact her doctor if there is a weight gain of more than 3 pounds in 1-2 days. -continue duonebs q6h PRN to help with wheezing or breathing -continue CPAP at night to help with hypoventilation -Repeat INR in 2 days. Last noted was 2.2. Last dose of warfarin was Oct 05, restart on discharge for goal of less than 1.5 to prevent brain bleeds given brain metastases. Acute hypoxic, hypercapnic respiratory failure 2/2 CHF exacerbation vs. aflutter/afib vs. COPD vs. JONATHON/obesity hypoventilation Chest x-ray shows cardiomegaly with volume overload and significant congestive change -Last echo Aug 2019, EF 20-25% -currently back to baseline of 4L NC during the day and bipap at night -Received Lasix 20mg IV on 09/30 and 40mg IV on 09/29 -continue home Lasix -continue levalbuterol duonebs Q6H PRN, Atrovent PRN Atrial Fibrillation with RVR/Atrial Flutter -HR ranges from 80s-120s depending on afib vs. aflutter -Optimize electrolytes -continue home metoprolol 12.5mg BID Continue warfarin 6 mg nightly with goal INR less than 1.5 per outside records due to potential for brain bleed given brain mets Hx of CAD and HTN Continue metoprolol 12.5 mg p.o. twice daily Continue rosuvastatin 10 mg p.o. nightly -continue spironolactone 25mg -continue home Lasix, nighttime dose should be at 5pm to limit nighttime urination/incontinence. Subacute stroke vs. Brain mets CT head shows left frontal acute versus subacute stroke; pt had newly diagnosed brain mets in this distribution as well in August [address] [facility] note -Not TPA candidate -On warfarin and aspirin therapy History of breast and ?lung cancer, mets x4 to brain Per review of chart records, had lumpectomy with radiation for breast cancer. -Lung nodule possibly mets, in addition to brain mets. -currently on Armidex 1 mg p.o. every morning Patient and family report not pursuing chemotherapy, surgery, or curative treatment at this time palliative consulted, appreciate recs. Discussion 10/05 as to whether home with hospice vs. SNF. Family decided [facility] for rehab at this time. CKD IV -Baseline Cr 1.1 -Currently elevated, will continue to monitor Constipation -continue bowel regimen Depression Continue sertraline 50 mg every morning GERD Continue Protonix 40 mg p.o. every morning History of gout Continue Uloric 40 mg p.o. every morning Hypothyroidism Continue Synthroid 112 mcg p.o. daily TSH within normal limits on admission Pending Studies at Discharge: No Stand-Alone Forms: [facility] Skilled Items Patient informed of condition?: Yes DNR: Yes Discharge Level of Care: Skilled Communicable Disease: No Discharge Prognosis: Stable Lines: None Urinary Catheter: No Medications and DC Order Prescriptions: New levalbuterol HCl 0.63 mg/3 mL Solution For Nebulization 0.63 mg NEB Q6R PRN (Reason: shortness of breath or wheezing) Qty: 72 RF: 0 ipratropium bromide 0.02 % Solution 0.5 mg inhalation Q6R PRN (Reason: shortness of breath or wheezing) 5 Days Qty: 15 RF: 0 Continued warfarin [Coumadin] 6 mg tablet 6 mg PO HS RF: 0 docusate sodium 100 mg capsule 100 mg PO QAM RF: 0 furosemide [Lasix] 40 mg tablet 40 mg PO QAM RF: 0 nitroglycerin [Nitrolingual] 400 mcg/spray spray,non-aerosol 400 mcg SL UD PRN (Reason: Chest Pain) RF: 0 potassium chloride [K-Tab] 20 mEq tablet extended release 20 meq PO QAM Qty: 90 RF: 0 Breo Ellipta 100-25 mcg/dose blister with device 1 puffs inhalation DAILY RF: 0 ergocalciferol (vitamin D2) 50,000 unit capsule 50,000 unit PO MONTHLY Qty: 12 RF: 0 anastrozole [Arimidex] 1 mg tablet 1 mg PO QAM RF: 0 acetaminophen [Tylenol] 325 mg Tablet 650 mg PO HS RF: 0 aspirin [Aspirin Low Dose] 81 mg Tablet,Delayed Release (Dr/Ec) 81 mg PO QAM RF: 0 spironolactone 25 mg Tablet 25 mg PO QAM RF: 0 pantoprazole [Protonix] 40 mg Tablet,Delayed Release (Dr/Ec) 40 mg PO QAM RF: 0 levothyroxine [Synthroid] 112 mcg Tablet 112 mcg PO QAM RF: 0 rosuvastatin [Crestor] 10 mg tablet 10 mg PO HS RF: 0 Calcium 600 + D(3) 600 mg calcium- 200 unit Capsule 1 tab PO HS RF: 0 diclofenac sodium [Voltaren] 1 % Gel 1 applic TOPICAL QID PRN (Reason: Pain) RF: 0 febuxostat [Uloric] 40 mg Tablet 40 mg PO QAM RF: 0 pregabalin [Lyrica] 150 mg capsule 150 mg PO BID RF: 0 sertraline [Zoloft] 100 mg tablet 50 mg PO QAM RF: 0 metoprolol tartrate 25 mg Tablet 12.5 mg PO BID Qty: 0 RF: 0 furosemide [Lasix] 20 mg tablet 20 mg PO HS RF: 0 Discharge Orders: Discharge Order (Routine); Ordered 10/07/19 Ordered By: Samantha Delgado Admission Data Admit Date/Time: 09/29/19 21:30 Attending Provider: Alexander Kelly Admit Provider: Sammy Headley [facility] Other Providers: [id number],CAPPT ; [facility], ; Yaw Sinclair ; Desirae Soto ; Shereen Anand ; Margie Pratt Other Interventions: Discharge Summary Assessment (RN) Last Done: 10/07/19 15:39 DC Date/Time DO NOT enter until pt leaves facility: 10/07/19 16:42 Supervising Physician Co-Signing Physician Notes Resident Physician Supervision Note: I interviewed and examined the patient on day of discharge. Discussed with Dr. Samantha Delgado and agree with findings and plan as documented in the discharge summary/note. Any exceptions or clarifications are listed here: *respiratory failure was acute/chronic hypoxic & hypercarbic respiratory failure. additional diagnoses - morbid obesity - BMI 42.8; acute/chronic systolic CHF. 74yo female with chronic hypoxic/hypercarbic resp failure on home O2 3-4 L - recently at [facility] for rehab - presented with worsening respiratory status, dyspnea, etc. Found to be in decompensated CHF requiring use of IV diuretics. Respiratory status improved with such and O2 weaned to baseline NC requirements of 3-[address] head with left frontal mass vs stroke - favor former as she was hospitalized at [facility] in August and records suggest head imaging showing the same finding at that time. Received PT/OT services while hospitalized. Both advised ongoing rehab. Seen by palliative care team. Patient's goal is to get little stronger so that she can return home with her daughter. To that end she is transferring back to [facility] for rehab. Initially her insurance had denied the request to return to [facility]. However, following [id number] phone call to medical health researcher at her insurance, ultimately she was indeed approved for skilled rehab at [facility]. Discharge exam: gen - NAD, eating lunch, obese mouth - MMM, no thrush neck - no obvious JVD heart - irregular, rate<100, s1 s2 lungs - decreased BS bases but no wheeze or rales abd - soft NT ext - no edema Documented By: Alexander Kelly MD Resident Activity Tracking Resident Involvement: Resident Care Provided Care Provided: Adult Hospital Medicine
[2019-10-07 15:29] VITALS: TEMP 97.7; O2SAT 90
[2019-10-07 15:42] VITALS: BP 124/82; PULSE 98
--- NOTE | 2019-10-08 06:01 | Billing Data ---
Date of Service October 07, 2019 Coding Level of Care Code D/C Day Management >30 mins
[2019-10-18] MEDS ORDERED: ERGOCALCIFEROL 50,000 UNITS CAP PO SCH (09:00)
== END 2019-10-07 16:42 | DRG 291 ==
LOC: ED 18:20 → SUATTDRO 21:30 → 2S 21:30 → 4W 10-03 17:56